=== PATIENT | female | born 2000 | race Caucasian/White ===

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

== ENCOUNTER 2023-01-30 08:12 | Emergency (ER) | payer MEDICAID, SELFPAY ==
[2023-01-30 08:13] VITALS: BP 118/78; PULSE 64; RESP 14; TEMP 36.4; O2SAT 98; BMI 25.4
--- NOTE | 2023-01-30 08:48 | EX.ED.DYSGE1 ---
HPI History of Present Illness Chief Complaint: General Illness Narrative Narrative: 23-year-old female who denies significant past medical history presents with nausea and vomiting after taking Plan B last evening. Of note, she states that she started her period last week and was on it for 2 days, but on , approximately 5 days ago, she took a Plan B which halted her menses. She had intercourse on Monday, the following day, and waited 48 hours and took another Plan B last evening. This morning, she awoke nauseated while she had been nauseated after taking it last evening. She vomited twice without any blood in her emesis. She denies any vaginal bleeding currently, no pelvic pain. She states that basically she is here because she needs a note for work today as well. She does not see an BREWERY TECHNICIAN regularly but wants to start control again. PFSH PFSH Medical History ADHD Anxiety Hemoperitoneum Home Medications lisdexamfetamine 10 mg capsule (Vyvanse) 10 mg adhd 09/09/20 [History Last Taken Unknown] etonogestrel 68 mg subdermal implant (Nexplanon) 1 implant subdermal ONCE 09/14/20 [History Last Taken Unknown] ondansetron 4 mg disintegrating tablet 4 mg PO Q6H PRN nausea and vomiting #10 tabs 01/30/23 [Rx Last Taken Unknown] Allergy/AdvReac Type Severity Reaction Status Date / Time No Known Allergies Allergy Verified 01/30/23 08:12 Family History Mother Hypertension Hyperlipidemia Surgical History History of ectopic Social History Smoking Status: Never smoker alcohol intake: never substance use type: does not use caffeine: No seatbelt use: always do you feel safe at home: Yes ROS ROS ED ROS Narrative Constitutional: No fever, no chills. HEENT: No sore throat. No neck pain. No loss of vision. No rhinorrhea. Cardiovascular: No chest pain. No palpitations. No pedal edema. Respiratory: No cough, no shortness of breath. Abdominal: No abdominal pain. Positive nausea, 2 episodes of nonbloody emesis. Genitourinary: No dysuria. No hematuria. No vaginal bleeding. Musculoskeletal: No myalgias. No arthralgias. Neurologic: No headaches. No dizziness. No lightheadedness. Skin: No rash. No change in color. Psychiatric: No depression. No anxiety. EXAM Physical Exam Narrative Exam Narrative: Afebrile. Vital signs noted. HEENT: Normocephalic. Atraumatic. PERRL, EOMI. Neck soft and supple. No point tenderness or step off. Cardiovascular: Regular rate and rhythm. No murmurs, rubs, or gallops appreciated. Respiratory: No tachypnea. Lungs clear to auscultation bilaterally. Gastrointestinal: Abdomen soft, nontender, with normoactive bowel sounds. No rebound or guarding. Neurological: Awake. Alert. Nonfocal, nonlateralizing. Skin: No rash. Normal color. No pallor. Musculoskeletal: No pedal edema. Full range of motion extremities. Const Vital Signs: 01/30/23 08:13 Temperature 97.6 F L Temperature Source Temporal Pulse Rate 64 Respiratory Rate 14 Blood Pressure 118/78 Blood Pressure Mean 91 Pulse Ox 98 Oxygen Delivery Method Room Air MDM MDM MDM Narrative Medical decision making narrative: I reviewed her prior ED visit. I do not feel any laboratory work is indicated. I do not feel test is indicated as she is not having vaginal bleeding or pelvic pain, and she most recently had intercourse on Monday. I do feel that her nausea and vomiting is secondary to her medication as this is essentially hormonal treatment. She was treated with Zofran ODT and a prescription written for 10 tablets. She was told that she may need to perform a test in the next 1 to 2 weeks to make sure that her Plan B was effective. She was also recommended to follow-up with an BREWERY TECHNICIAN. She was given the number to the [facility] on-call at her request. I feel she can be discharged safely home with follow-up. I do feel that it is too early to be concerned about ectopic currently as she is not having vaginal bleeding and she just had intercourse within the last week. Additionally, she states that she already took 2 home test which were both negative. She was told to return with a positive home , and follow-up with an BREWERY TECHNICIAN soon as possible. Return instructions to the emergency department were reviewed. Disposition is discharged home in stable condition. History & Record Review Additional record(s) reviewed:: Prior ED visit Discharge Plan Triage Chief Complaint: General Illness ED Provider: Arnoldo Harding Dx/Rx/DC Orders Clinical Impression: Medication side effect, Nausea and vomiting Instructions: ED Drug Reaction, Other, ED Vomiting (Adult) Prescriptions: New ondansetron 4 mg tablet,disintegrating 4 mg PO Q6H PRN (Reason: nausea and vomiting) Qty: 10 0RF No Action Nexplanon 68 mg implant 1 implant subdermal ONCE Rx Instructions: as a single dose Vyvanse 10 mg capsule 10 mg Patient Comments: Take 1 capsule by mouth once daily for 30 days. Stand Alone Forms: ED Work / School Excuse Primary Care Provider: Unique Rivas Referrals: Unique Rivas MD [Primary Care Provider] - Nereida Garcia MD [Med Staff - Active Staff] - As soon as possible Disposition Disposition: Home, Self Care
[2023-01-30] MEDS: Ondansetron ODT 4 MG Tablet PO (08:57)
== END 2023-01-30 09:19 | disposition home or self-care (01) ==
LOC: ED 09:12
PROVIDERS: Emergency Provider Emergency Medicine; PCP Pediatrics; Visit Provider Emergency Medicine
DX: R11.2 Nausea with vomiting, unspecified (principal); T38.4X5A Adverse effect of oral contraceptives, initial encounter
CPT/HCPCS: 99283

== ENCOUNTER → 2023-02-21 | Outpatient (CLI) | payer MEDICAID, SELFPAY | END | disposition home or self-care (01) | LOC: LABSPEC 15:59 | PROVIDERS: PCP Pediatrics; Referring Provider Advanced Practice Midwife; Visit Provider Advanced Practice Midwife | DX: Z30.9 Encounter for contraceptive management, unspecified (principal) ==

== ENCOUNTER → 2024-09-16 | Outpatient (CLI) | payer SELFPAY ==
[2024-09-19 06:07] LABS: Chlamydia By Nucleic Acid AMP Positive (Negative); Gonococcus By Nucleic Acid AMP Negative (Negative)
== END | disposition home or self-care (01) ==
LOC: LABSPEC 15:39
PROVIDERS: PCP Pediatrics; Referring Provider Obstetrics & Gynecology; Visit Provider Obstetrics & Gynecology
DX: O09.90 Supervision of high risk pregnancy, unspecified, unspecified trimester (principal); Z3A.00 Weeks of gestation of pregnancy not specified
CPT/HCPCS: 87086; 87088; 87491; 87591; 88175; G0145

== ENCOUNTER → 2024-10-02 | Outpatient (CLI) | payer MEDICAID, SELFPAY ==
[2024-10-02 15:59] LABS: Absolute Lymphocyte Count 1.89 X10^3/uL (0.83-4.51); Absolute Neutrophil Count 6.2 X10^3/uL (2.0-7.7); Basophil# 0.03 X10^3/uL; Basophil% 0.3 % (0-1); Eosinophil# 0.07 X10^3/uL; Eosinophils% 0.8 % (0-5); Hematocrit 38.5 % (37-47); Hemoglobin 12.9 g/dL (12.0-15.0); Lymphocyte # 1.89 X10^3/ul (0.83-4.51); Lymphocyte % 21.4 % (19-41); Mean Corp Hgb Conc 33.5 g/dL (32-36); Mean Corpuscular Hgb 29.3 pg (27.0-32.0); Mean Corpuscular Volume 87.5 fL (81-99); Monocyte# 0.65 X10^3/uL; Monocyte% 7.3 % (0-10); NRBC Flagged by Analyzer 0 % (0-5); Neutrophil # 6.19 X10^3/uL (2.7-7.7); Platelet Count 339 K/mm3 (150-450); RBC Distribution Width SD 48.4 fl (35.1-43.9); White Blood Count 8.9 K/mm3 (4.4-11.0)
[2024-10-02 16:40] LABS: HIV Nonreactive (Nonreactive); Hepatitis B Surface Antigen Nonreactive (Nonreactive); Hepatitis C Antibody Nonreactive (Nonreactive); Rubella IgG REAC (Nonreactive); Syphilis Antibodies Nonreactive (Nonreactive)
== END | disposition home or self-care (01) ==
PROVIDERS: PCP Pediatrics; Referring Provider Obstetrics & Gynecology; Visit Provider Obstetrics & Gynecology
DX: O09.90 Supervision of high risk pregnancy, unspecified, unspecified trimester (principal); Z3A.00 Weeks of gestation of pregnancy not specified
CPT/HCPCS: 36415; 85025; 86703; 86762; 86780; 86803; 86850; 86900; 86901; 87340

== ENCOUNTER 2024-11-02 09:07 | Emergency (ER) | payer SELFPAY ==
[2024-11-02 09:08] VITALS: BP 130/78; PULSE 107; RESP 18; TEMP 36.4; O2SAT 99; BMI 28.0
--- NOTE | 2024-11-02 10:02 | US_ITS ---
PROCEDURE: OB LIMITED WITH BIOMETRICS 11/02/2024 REASON FOR EXAM: VAGINAL BLEEDING. Early 2nd trimester TECHNIQUE: OB LIMITED WITH BIOMETRICS COMPARISON: None FINDINGS Number: 1 Position: Breech Placental Position: Anterior See exception following. Moderately echogenic rounded mass covers the cervix. This does not appear to be directly connected to placenta, but succenturiate placenta can not be excluded. Potentially this represents a variation of placenta previa Placental Abnormalities: Grade 0. No abnormalities. With the exception stated above. Cervical length: 3.3 cm. Closed cervical os. Adnexa unremarkable. DIMENSIONS: Biparietal Diameter: 3.04 cm/15 weeks, 4 days Head Circumference: 3.98 cm/15 weeks, 4 days Abdominal Circumference: 9.02 cm/15 weeks, 2 days Femur Length: 1.55 cm/14 weeks, 4 days ESTIMATED WEIGHT: 111 g +/-17 g ESTIMATED WEIGHT PERCENTILE (24+ weeks): 36% ESTIMATED GESTATIONAL AGE: Baseline: 15 weeks, 0 days By Ultrasound: 15 weeks, 3 days ESTIMATED DATE OF DELIVERY: Baseline: April 26, 2025 By Ultrasound: April 23, 2025 BIOPHYSICAL ASSESSMENT: Amniotic Fluid Volume: Amniotic Fluid Index: (8-24 cm normal range) Cardiac Motion: 166 (average) US/OB Limited With Biometrics IMPRESSION: rounded, 4 cm, potential lesion, covering the cervical os. A form of placenta p revia can not be excluded. If it is previa, could be succenturiate placental lobe, but precise etiology is unknown. Level of cer tainty in the above diagnosis is low. Maternal- medicine in [facility] consult may be considered Reading Location: [id number]
[2024-11-02] MEDS: 0.9% Normal Saline (1000mL) 1,000 ML 999 ML IV (10:17)
[2024-11-02 10:18] LABS: Absolute Lymphocyte Count 2.52 X10^3/uL (0.83-4.51); Absolute Neutrophil Count 5.1 X10^3/uL (2.0-7.7); Basophil# 0.05 X10^3/uL; Basophil% 0.6 % (0-1); Eosinophil# 0.12 X10^3/uL; Eosinophils% 1.4 % (0-5); Hematocrit 34.9 % (37-47); Hemoglobin 12.2 g/dL (12.0-15.0); Lymphocyte # 2.52 X10^3/ul (0.83-4.51); Lymphocyte % 29.1 % (19-41); Mean Corpuscular Hgb 30.4 pg (27.0-32.0); Mean Platelet Vol. 11.7 fl (6.2-12.0); Monocyte# 0.83 X10^3/uL; Monocyte% 9.6 % (0-10); NRBC Flagged by Analyzer 0 % (0-5); Neutrophil # 5.11 X10^3/uL (2.7-7.7); Neutrophil % 59.1 % (47-70); Platelet Count 278 K/mm3 (150-450); RBC Distribution Width CV 14.2 % (11.6-14.6); RBC Distribution Width SD 45.3 fl (35.1-43.9); Red Blood Count 4.01 M/mm3 (4.2-5.4); White Blood Count 8.7 K/mm3 (4.4-11.0)
--- OUTSIDE RECORDS SUMMARY | 2024-11-02 10:25 | XMS RPT_ITS | CCD ---
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 [facility] 09-01-2023 13:11-0400 Diastolic blood pressure 62 mm[Hg] Marisa William BENEFIT DIRECTOR.[employer] Work Phone: [facility] 09-01-2023 13:11-0400 Heart rate 60 /min Marisa William BENEFIT DIRECTOR.[employer] Work Phone: [facility] 09-01-2023 13:11-0400 Respiratory rate 12 /min Marisa William BENEFIT DIRECTOR.[employer] Work Phone: [facility] 09-01-2023 13:11-0400 Systolic blood pressure 110 mm[Hg] Marisa William BENEFIT DIRECTOR.[employer] Work Phone: [facility] 07-04-2023 15:35-0500 Body temperature 98.49 [degF] Naina Nichols BENEFIT DIRECTOR.[employer] Work Phone: [facility] 07-04-2023 15:35-0500 Body weight 63.05 kg Naina Nichols BENEFIT DIRECTOR.[employer] Work Phone: [facility] 07-04-2023 15:35-0500 Diastolic blood pressure 74 mm[Hg] Naina Nichols BENEFIT DIRECTOR.[employer] Work Phone: [facility] 07-04-2023 15:35-0500 Heart rate 92 /min Naina Nichols BENEFIT DIRECTOR.[employer] Work Phone: [facility] 07-04-2023 15:35-0500 Respiratory rate 16 /min Naina Nichols BENEFIT DIRECTOR.[employer] Work Phone: [facility] 07-04-2023 15:35-0500 SaO2% (BldA) [Mass fraction] 98 % Naina Nichols BENEFIT DIRECTOR.[employer] Work Phone: [facility] 07-04-2023 15:35-0500 Systolic blood pressure 124 mm[Hg] Naina Nichols BENEFIT DIRECTOR.[employer] Work Phone: [facility] 06-26-2023 16:08-0500 Body temperature 98.01 [degF] May Delaney BENEFIT DIRECTOR.[employer] Work Phone: [facility] 06-26-2023 16:08-0500 Body weight 63.96 kg May Delaney BENEFIT DIRECTOR.[employer] Work Phone: [facility] 06-26-2023 16:08-0500 Diastolic blood pressure 70 mm[Hg] May Delaney BENEFIT DIRECTOR.[employer] Work Phone: [facility] 06-26-2023 16:08-0500 Heart rate 102 /min May Delaney BENEFIT DIRECTOR.[employer] Work Phone: [facility] 06-26-2023 16:08-0500 Respiratory rate 18 /min May Delaney BENEFIT DIRECTOR.[employer] Work Phone: [facility] 06-26-2023 16:08-0500 SaO2% (BldA) [Mass fraction] 98 % May Delaney BENEFIT DIRECTOR.[employer] Work Phone: [facility] 06-26-2023 16:08-0500 Systolic blood pressure 122 mm[Hg] May Delaney BENEFIT DIRECTOR.[employer] Work Phone: [facility] 04-20-2023 12:42-0500 Body temperature 98.2 [degF] Kj Amaya MD Work Phone: [facility] 04-20-2023 12:42-0500 Body weight 62.14 kg Kj Amaya MD Work Phone: [facility] 04-20-2023 12:42-0500 Diastolic blood pressure 73 mm[Hg] Kj Amaya MD Work Phone: [facility] 04-20-2023 12:42-0500 Heart rate 83 /min Kj Amaya MD Work Phone: [facility] 04-20-2023 12:42-0500 Respiratory rate 18 /min Kj Amaya MD Work Phone: [facility] 04-20-2023 12:42-0500 SaO2% (BldA) [Mass fraction] 99 % Kj Amaya MD Work Phone: [facility] 04-20-2023 12:42-0500 Systolic blood pressure 137 mm[Hg] Kj Amaya MD Work Phone: [facility] 03-29-2023 07:12-0500 Body height 155.5 cm Marisa William BENEFIT DIRECTOR.[employer] Work Phone: [facility] 03-29-2023 07:12-0500 Body weight 61.78 kg Marisa William BENEFIT DIRECTOR.[employer] Work Phone: [facility] 03-29-2023 07:12-0500 Diastolic blood pressure 62 mm[Hg] Marisa William BENEFIT DIRECTOR.[employer] Work Phone: [facility] 03-29-2023 07:12-0500 Heart rate 69 /min Marisa William BENEFIT DIRECTOR.[employer] Work Phone: [facility] 03-29-2023 07:12-0500 Respiratory rate 12 /min Marisa William BENEFIT DIRECTOR.[employer] Work Phone: [facility] 03-29-2023 07:12-0500 SaO2% (BldA) [Mass fraction] 98 % Marisa William BENEFIT DIRECTOR.[employer] Work Phone: [facility] 03-29-2023 07:12-0500 Systolic blood pressure 98 mm[Hg] Marisa William BENEFIT DIRECTOR.[employer] Work Phone: [facility] 02-28-2023 12:02-0400 Body temperature 98.1 [degF] Janie Athy PA-C Work Phone: [facility] 02-28-2023 12:02-0400 Body weight 60.33 kg Janie Athy PA-C Work Phone: [facility] 02-28-2023 12:02-0400 Diastolic blood pressure 68 mm[Hg] Janie Athy PA-C Work Phone: [facility] 02-28-2023 12:02-0400 Heart rate 96 /min Janie Athy PA-C Work Phone: [facility] 02-28-2023 12:02-0400 Respiratory rate 16 /min Janie Athy PA-C Work Phone: [facility] 02-28-2023 12:02-0400 SaO2% (BldA) [Mass fraction] 97 % Janie Athy PA-C Work Phone: [facility] 02-28-2023 12:02-0400 Systolic blood pressure 122 mm[Hg] Janie Athy PA-C Work Phone: [facility] 02-21-2023 14:00-0400 Body height 152.[address] Unique Rivas Work Phone: [facility] 02-21-2023 13:59-0400 Body mass index (BMI) [Ratio] 26.2 kg/m2 Dr. Unique Rivas Work Phone: [facility] 02-21-2023 13:59-0400 Body weight 60.[address] Unique Rivas Work Phone: [facility] 02-13-2023 13:26-0400 Body mass index (BMI) [Ratio] 25.8 kg/m2 Dr. Unique Rivas Work Phone: [facility] 02-13-2023 13:26-0400 Body weight 60.[address] Unique Rivas Work Phone: [facility] 02-13-2023 13:26-0400 Diastolic blood pressure 84 mm[Hg] Dr. Unique Rivas Work Phone: [facility] 02-13-2023 13:26-0400 Systolic blood pressure 120 mm[Hg] Dr. Unique Rivas Work Phone: [facility] 01-30-2023 08:13-0400 Body height 152.4 cm [facility] 01-30-2023 08:13-0400 Body mass index (BMI) [Ratio] 25.4 kg/m2 [facility] 01-30-2023 08:13-0400 Body temperature 97.6 [degF] [facility] 01-30-2023 08:13-0400 Body weight 59.14 kg [facility] 01-30-2023 08:13-0400 Diastolic blood pressure 78 mm[Hg] [facility] 01-30-2023 08:13-0400 Heart rate 64 /min [facility] 01-30-2023 08:13-0400 Respiratory rate 14 /min [facility] 01-30-2023 08:13-0400 SaO2% (BldA) [Mass fraction] 98 % [facility] 01-30-2023 08:13-0400 Systolic blood pressure 118 mm[Hg] [facility] 01-24-2023 17:08-0400 Body temperature 97.81 [degF] Lizette Kinney BENEFIT DIRECTOR.[employer] Work Phone: [facility] 01-24-2023 17:08-0400 Body weight 60.15 kg Lizette Kinney BENEFIT DIRECTOR.[employer] Work Phone: [facility] 01-24-2023 17:08-0400 Diastolic blood pressure 78 mm[Hg] Lizette Kinney BENEFIT DIRECTOR.[employer] Work Phone: [facility] 01-24-2023 17:08-0400 Heart rate 79 /min Lizette Kinney BENEFIT DIRECTOR.[employer] Work Phone: [facility] 01-24-2023 17:08-0400 Respiratory rate 18 /min Lizette Kinney BENEFIT DIRECTOR.[employer] Work Phone: [facility] 01-24-2023 17:08-0400 SaO2% (BldA) [Mass fraction] 99 % Lizette Kinney BENEFIT DIRECTOR.[employer] Work Phone: [facility] 01-24-2023 17:08-0400 Systolic blood pressure 110 mm[Hg] Lizette Kinney BENEFIT DIRECTOR.[employer] Work Phone: [facility] 01-19-2023 14:29-0400 Body temperature 97.81 [degF] Kj Amaya MD Work Phone: [facility] 01-19-2023 14:29-0400 Body weight 58.97 kg Kj Amaya MD Work Phone: [facility] 01-19-2023 14:29-0400 Diastolic blood pressure 60 mm[Hg] Kj Amaya MD Work Phone: [facility] 01-19-2023 14:29-0400 Heart rate 104 /min Kj Amaya MD Work Phone: [facility] 01-19-2023 14:29-0400 Respiratory rate 16 /min Kj Amaya MD Work Phone: [facility] 01-19-2023 14:29-0400 SaO2% (BldA) [Mass fraction] 99 % Kj Amaya MD Work Phone: [facility] 01-19-2023 14:29-0400 Systolic blood pressure 124 mm[Hg] Kj Amaya MD Work Phone: [facility] 10-25-2022 14:02-0400 Body temperature 98.1 [degF] Janie AGUDELO-Isadora Work Phone: [facility] 10-25-2022 14:02-0400 Body weight 55.88 kg Janie AGUDELO-Isadora Work Phone: [facility] 10-25-2022 14:02-0400 Diastolic blood pressure 74 mm[Hg] Janie Peñalozay PA-C Work Phone: [facility] 10-25-2022 14:02-0400 Heart rate 82 /min Janie Athy PA-C Work Phone: [facility] 10-25-2022 14:02-0400 Respiratory rate 16 /min Janie Athy PA-C Work Phone: [facility] 10-25-2022 14:02-0400 SaO2% (BldA) [Mass fraction] 97 % Janie Athy PA-C Work Phone: [facility] 10-25-2022 14:02-0400 Systolic blood pressure 128 mm[Hg] Janie Athy PA-C Work Phone: [facility] 09-12-2022 15:17-0400 Body temperature 98.2 [degF] Lizette Kinney BENEFIT DIRECTOR.[employer] Work Phone: [facility] 09-12-2022 15:17-0400 Body weight 53.98 kg Lizette Kinney BENEFIT DIRECTOR.[employer] Work Phone: [facility] 09-12-2022 15:17-0400 Diastolic blood pressure 60 mm[Hg] Lizette Kinney BENEFIT DIRECTOR.[employer] Work Phone: [facility] 09-12-2022 15:17-0400 Heart rate 102 /min Lizette Kinney BENEFIT DIRECTOR.[employer] Work Phone: [facility] 09-12-2022 15:17-0400 Respiratory rate 16 /min Lizette Kinney BENEFIT DIRECTOR.[employer] Work Phone: [facility] 09-12-2022 15:17-0400 SaO2% (BldA) [Mass fraction] 99 % Lizette Kinney BENEFIT DIRECTOR.[employer] Work Phone: [facility] 09-12-2022 15:17-0400 Systolic blood pressure 102 mm[Hg] Lizette Kinney BENEFIT DIRECTOR.[employer] Work Phone: [facility] 06-30-2022 14:05-0500 Body temperature 98.1 [degF] Debbi Praisler-Wood BENEFIT DIRECTOR.[employer] Work Phone: [facility] 06-30-2022 14:05-0500 Body weight 53.43 kg Debbi Praisler-Wood BENEFIT DIRECTOR.[employer] Work Phone: [facility] 06-30-2022 14:05-0500 Diastolic blood pressure 64 mm[Hg] Debbi Praisler-Wood BENEFIT DIRECTOR.[employer] Work Phone: [facility] 06-30-2022 14:05-0500 Heart rate 93 /min Debbi Praisler-Wood BENEFIT DIRECTOR.[employer] Work Phone: [facility] 06-30-2022 14:05-0500 Respiratory rate 18 /min Debbi Praisler-Wood BENEFIT DIRECTOR.[employer] Work Phone: [facility] 06-30-2022 14:05-0500 SaO2% (BldA) [Mass fraction] 98 % Debbi Praisler-Wood BENEFIT DIRECTOR.[employer] Work Phone: [facility] 06-30-2022 14:05-0500 Systolic blood pressure 98 mm[Hg] Debbi Praisler-Wood BENEFIT DIRECTOR.[employer] Work Phone: [facility] 11-04-2021 09:50-0400 Body mass index (BMI) [Percentile] Per age and sex 35.88 % Unique Rivas MD Work Phone: [facility] 11-04-2021 09:50-0400 Body temperature 97.5 [degF] Unique Rivas MD Work Phone: [facility] 11-04-2021 09:50-0400 Body weight 48.22 kg Unique Rivas MD Work Phone: [facility] 11-04-2021 09:50-0400 Diastolic blood pressure 60 mm[Hg] Unique Rivas MD Work Phone: [facility] 11-04-2021 09:50-0400 Heart rate 80 /min Unique Rivas MD Work Phone: [facility] 11-04-2021 09:50-0400 Respiratory rate 18 /min Unique Rivas MD Work Phone: [facility] 11-04-2021 09:50-0400 Systolic blood pressure 110 mm[Hg] Unique Rivas MD Work Phone: [facility] 08-09-2021 10:02-0400 Body mass index (BMI) [Percentile] Per age and sex 40.69 % Kj Amaya MD Work Phone: [facility] 08-09-2021 10:02-0400 Body temperature 98.91 [degF] Kj Amaya MD Work Phone: [facility] 08-09-2021 10:02-0400 Body weight 48.99 kg Kj Amaya MD Work Phone: [facility] 08-09-2021 10:02-0400 Diastolic blood pressure 62 mm[Hg] Kj Amaya MD Work Phone: [facility] 08-09-2021 10:02-0400 Heart rate 108 /min Kj Amaya MD Work Phone: [facility] 08-09-2021 10:02-0400 Respiratory rate 16 /min Kj Amaya MD Work Phone: [facility] 08-09-2021 10:02-0400 SaO2% (BldA) [Mass fraction] 99 % jK Amaya MD Work Phone: [facility] 08-09-2021 10:02-0400 Systolic blood pressure 106 mm[Hg] Kj Amaya MD Work Phone: [facility] Encounters Encounter Date Encounter Type Care Provider Facility Start: 10-15-2024 End: 10-15-2024 Patient encounter procedure Chanel CABRERA -[facility] Work Phone: Start: 10-15-2024 End: 10-15-[address] Unique Rivas MD Work Phone: [facility] Work Phone: Start: 10-02-2024 End: 10-02-[address] Unique Rivas MD Work Phone: [facility] Work Phone: Start: 10-02-2024 End: 10-02-[address] Nereida Garcia MD -[facility] Start: 10-02-2024 End: 10-02-2024 ambulatory Nereida Garcia Facility:[facility] Start: 09-16-2024 End: 09-16-[address] Unique Rivas MD Work Phone: [facility] Work Phone: Start: 09-16-2024 End: 09-16-[address] Nereida Garcia MD -[facility] Work Phone: Start: 09-16-2024 End: 09-16-[address] Sarah Ravi DO -[facility] Work Phone: Start: 09-16-2024 End: 09-16-2024 ambulatory Unique Rivas Facility:[facility] Start: 09-16-2024 End: 09-16-2024 ambulatory Nereida Garcia Facility:[facility] Start: 08-27-2024 End: 08-27-[address] Nereida Garcia MD -[facility] Work Phone: Start: 08-27-2024 End: 08-27-2024 ambulatory Nereida Garcia Facility:[facility] Start: 07-30-2024 End: 07-30-2024 Telephone encounter Marisa William APRN.[employer] Work Phone: [facility] Comment on above: Orders Start: 07-07-2024 End: 09-06-2024 Follow-up encounter Naina Nichols APRN.[employer] Work Phone: [facility] Start: 07-06-2024 End: 07-06-2024 ambulatory MARISA ANGEL WILLIAM Facility:[facility] Start: 07-06-2024 End: 07-06-2024 Patient encounter procedure Janelle Weldon APRN.[employer] Work Phone: [facility] Comment on above: Rhinosinusitis (Prim maru Dx) Start: 07-02-2024 End: 07-02-2024 ambulatory MARISA ANGEL WILLIAM Facility:[facility] Start: 07-02-2024 End: 07-02-2024 Office outpatient visit 25 minutes Carlos Salazar PA-C Work Phone: [facility] Comment on above: Sore throat (Primary Dx); Acute pharyngitis, unspecified etiology Start: 06-19-2024 End: 08-19-2024 Follow-up encounter Stef AGUDELO Work Phone: [facility] Start: 06-18-2024 End: 06-18-2024 ambulatory MARISA ANGEL WILLIAM Facility:[facility] Start: 06-18-2024 End: 06-18-2024 Patient encounter procedure Debbi Arceo APRN.[employer] Work Phone: [facility] Comment on above: Flu-like symptoms (P rimary Dx) Start: 05-10-2024 End: 05-10-2024 ambulatory MARISA WILLIAM Facility:[facility] Start: 05-10-2024 Encounter for genera l adult medical examination without abnormal findings MARISA WILLIAM [facility] Start: 05-10-2024 End: 05-10-2024 Patient encounter procedure Marisa William BENEFIT DIRECTOR.[employer] Work Phone: [facility] [place] Comment on above: Wellness examination (Primary Dx); Family history of hypothyroidism; Right leg pain Start: 05-10-2024 End: 05-10-2024 Patient encounter status Marisa William BENEFIT DIRECTOR.[employer] Work Phone: [facility] Work Phone: Start: 04-23-2024 End: 04-23-2024 ambulatory Unique Rivas Facility:[facility] Start: 02-05-2024 End: 02-05-2024 ambulatory MARISA WILLIAM Facility:[facility] Start: 02-05-2024 End: 02-05-2024 Patient encounter procedure Naina Nichols APRN.[employer] Work Phone: [facility] Comment on above: URI, acute (Primary Dx) Start: 11-28-2023 End: 11-28-2023 ambulatory MARISAMARILIA ORTIZ POCOLA Facility:[facility] Start: 11-28-2023 End: 11-28-2023 Patient encounter procedure Stef AGUDELO Work Phone: [facility] Comment on above: Headache, unspecifie d headache type (Primary Dx) Start: 11-03-2023 End: 11-03-2023 ambulatory MARISAMARILIA WILLIAM Facility:[facility] Start: 11-03-2023 End: 11-03-2023 Office outpatient visit 15 minutes Beltran Carreon APRN.[employer] Work Phone: [facility] Comment on above: Pain of right lower extremity (Primary Dx) Start: 09-01-2023 End: 09-01-2023 ambulatory MARISAMARILIA ORTIZ WILLIAM Facility:[facility] Start: 09-01-2023 End: 09-01-2023 Patient encounter procedure Marisa Stewart ALDRIDGE.[employer] Work Phone: [facility] [place] Comment on above: Wellness examination (Primary Dx) Start: 09-01-2023 End: 09-01-2023 Patient encounter status Marisa Stewart ALDRIDGE.[employer] Work Phone: [facility] Work Phone: Start: 07-04-2023 End: 07-04-2023 Patient encounter procedure Naina Nichols APRN.[employer] Work Phone: [facility] Comment on above: Acute otitis media, left (Primary Dx); Sore throat Start: 06-26-2023 End: 06-26-2023 Patient encounter procedure May Delaney APRN.[employer] Work Phone: [facility] Comment on above: Exposure to SARS-ass ociated coronavirus (Primary Dx) Start: 04-20-2023 End: 04-20-2023 Patient encounter procedure Kj Amaya MD Work Phone: [facility] Comment on above: Acute hip pain, righ t (Primary Dx) Start: 03-29-2023 End: 03-29-2023 Patient encounter procedure Marisa William BENEFIT DIRECTOR.[employer] Work Phone: [facility] [place] Comment on above: Wellness examination (Primary Dx) Start: 03-29-2023 End: 03-29-2023 Patient encounter status Marisa William BENEFIT DIRECTOR.[employer] Work Phone: [facility] Work Phone: Start: 02-28-2023 End: 02-28-2023 Patient encounter procedure Janie Holder PA-C Work Phone: [facility] Comment on above: Nausea (Primary Dx) Start: 02-21-2023 End: 02-21-[address] Unique Rivas Work Phone: [facility] Work Phone: Start: 02-21-2023 End: 02-21-[address] Unique Rivas Work Phone: [facility]Laboratory, Specimen Work Phone: Start: 02-21-2023 End: 02-21-[address] Unique Rivas Work Phone: [facility] Work Phone: Start: 02-13-2023 End: 02-13-[address] Unique Rivas Work Phone: [facility] Work Phone: Start: 01-30-2023 End: 01-30-2023 Emergency department patient visit [facility] Work Phone: Start: 01-24-2023 End: 01-24-2023 Patient encounter procedure Lizette Kinney BENEFIT DIRECTOR.[employer] Work Phone: [facility] Comment on above: Nausea vomiting and diarrhea (Primary Dx) Start: 01-19-2023 End: 01-19-2023 Patient encounter procedure Kj Amaya MD Work Phone: [facility] Comment on above: Costochondritis (Ale olamide Dx) Start: 10-25-2022 End: 10-25-2022 Patient encounter procedure Janie Holder PA-C Work Phone: [facility] Comment on above: Fluid level behind t ympanic membrane of right ear (Primary Dx); Headache, unspecified headache type Start: 09-12-2022 End: 09-12-2022 Patient encounter procedure Lizette Kinney BENEFIT DIRECTOR.[employer] Work Phone: [facility] Comment on above: URI, acute (Primary Dx); Pharyngitis, unspecified etiology Start: 06-30-2022 End: 06-30-2022 Patient encounter procedure Debbi Arceo BENEFIT DIRECTOR.[employer] Work Phone: [facility] Comment on above: Encounter for screen ing laboratory testing for COVID-19 virus (Primary Dx) Start: 06-30-2022 Telephone encounter May harris MD Work Phone: [facility] Comment on above: [facility] COVID Outr each Start: 02-23-2022 Refill Unique Liu ed, MD Work Phone: [facility] [place] Comment on above: Refill Request Start: 01-25-2022 Refill Unique Liu ed, MD Work Phone: [facility] Comment on above: Refill Request Start: 01-24-2022 End: 01-24-2022 Patient encounter procedure Nurse Rosales [facility] Comment on above: Encounter for immuni zation (Primary Dx) Refill Request Start: 01-22-2022 Refill Unique Liu ed, MD Work Phone: [facility] Comment on above: Refill Request Start: 01-21-2022 End: 01-21-2022 Patient encounter procedure Nurse Rosales [facility] Comment on above: Encounter for PPD sk in test reading (Primary Dx) Start: 01-06-2022 End: 01-06-2022 Patient encounter procedure Nurse Rosales Watson [facility] [place] Comment on above: Encounter for PPD sk in test reading (Primary Dx); Screening-pulmonary TB Start: 12-27-2021 End: 12-27-2021 Patient encounter procedure Unique Rivas MD Work Phone: [facility] Comment on above: Encounter for immuni zation (Primary Dx) Start: 12-23-2021 Refill Tessa Martinez PA-C Work Phone: [facility] Comment on above: Refill Request Start: 12-01-2021 Telephone encounter Angie Maya RN [facility] Comment on above: [facility] COVID Outr each Start: 11-04-2021 End: 11-04-2021 Patient encounter procedure Unique Rivas MD Work Phone: [facility] [place] Comment on above: Attention deficit hy peractivity disorder (ADHD), predominantly inattentive type (Primary Dx); Anxiety Start: 10-22-2021 Refill Unique Liu ed, MD Work Phone: [facility] Comment on above: Refill Request Start: 09-20-2021 Refill Unique Liu ed, MD Work Phone: [facility] [place] Comment on above: Refill Request Start: 09-18-2021 Refill Unique Liu ed, MD Work Phone: [facility] Comment on above: Refill Request Start: 08-09-2021 End: 08-09-2021 Patient encounter procedure Kj Amaya MD Work Phone: [facility] Comment on above: Toothache (Primary D x) Procedures Date Procedure Procedure Detail Performing Clinician Start: 10-02-[address] Lluvia Rivas MD Work Phone: Start: 10-02-[address] antibody measurement Dr. Unique Rivas MD Work Phone: Comment on above: Reactive: Presumptiv e evidence of antibodies to HCV. Follow CDC recommendations for supplemental testing.Non-Reactive: Antibodies to HCV were not detected; does not exclude the possibility of exposure to HCVReactive Results are presumptive evidence of antibodies to HCV. Follow CDC recommendations for supplemental testing.Order confirmation testing: HCV Quant by PCR testing - HCVPCR #[id number] Non Reactive: < 0.8 Equivocal: >/= 0.8 to < 1.0 Reactive: >/= 1.0The CDC requires that a reactive/equivocal HCV antibody result be sent out for confirmation. HCV Quant by PCR testing. Start: 10-02-[address] Unique Rivas MD Work Phone: Comment on above: Antibody Result: Int erpretationNon-Reactive: Non- ImmuneReactive: ImmuneThe following results were obtained with the [employer] Rubella IgG assay. Results from assays of other manufacturers cannot be used interchangeably. Start: 10-02-2024 Serologic test for syphilis Dr. Unique Rivas MD Work Phone: Start: 09-16-2024 Liquid based cervica l cytology screening Dr. Unique Rivas MD Work Phone: Comment on above: NEGATIVE FOR INTRAEP ITHELIAL LESION OR MALIGNANCY. This liquid based Th inPrep(R) pap test was screened withthe use of an image guided system. The HPV DNA reflex c riteria were not met with this specimenresult therefore, no HPV testing was performed.Performed at: [address] [id number] Director: Birdie Tobin MD, Phone: [phone] Start: 09-16-[address] Elma Rivas MD Work Phone: Start: 07-02-2024 STREP A MOLECULAR (POC) Lizette Kinney BENEFIT DIRECTOR.[employer] Work Phone: Start: 07-04-2023 STREP A MOLECULAR (POC) [facility] Provider Start: 02-21-[address] Unique Rivas Work Phone: Start: 02-21-2023 Chlamydia trachomatis (PCR) Dr. Unique Rivas Work Phone: Start: 09-12-2022 STREP A MOLECULAR (POC) Lizette Kinney BENEFIT DIRECTOR.[employer] Work Phone: Start: 01-24-2022 INFLUENZA VACCINE QUADRIVALENT 6 MO - 64 YRS IM Unique Rivas MD Work Phone: Start: 12-27-2021 Adult depression scr eening assessment Unique Rivas MD Work Phone: Start: 11-04-2021 Adult depression scr eening assessment Unique Rivas MD Work Phone: Start: 07-09-2021 Adult depression scr eening assessment Kj Amaya MD Work Phone: Plan of Treatment Date Care Activity Detail Author Start: 05-10-2025 Covid-19 Vaccine ( season) Covid-19 Vaccine ( season) [facility] Comment on above: Postponed from 01/06 (Declined at this time) Start: 11-04-2024 Influenza vaccination Influenza Vacc ine (#1) [facility] Comment on above: Postponed from 01/06 (Declined at this time) Start: 09-16-2024 Liquid based cervica l cytology screening [facility] Start: 07-02-2024 End: 07-02-2024 ambulatory 07/02/2024 12:00 PM EST OT/PT/Speech Visit [facility] [address] [place] [address] Lizette Andrews, PT My right leg [facility] Comment on above: My right leg Start: 05-10-2024 End: 08-09-2024 CBC W Auto Differential panel - Blood COMPLETE BLOOD COUNT AND DIFFERENTIAL Lab Routine Wellness examination Expected: 05/10/2024, Expires: 08/09/2024 [facility] Comment on above: Expected: 05/10/2024 , Expires: 08/09/2024 Start: 05-10-2024 End: 08-09-2024 Comprehensive metabolic 2000 panel - Serum or Plasma COMPREHENSIVE METABOLIC PANEL Lab Routine Wellness examination Expected: 05/10/2024, Expires: 08/09/2024 [facility] Work Phone: Comment on above: Expected: 05/10/2024 , Expires: 08/09/2024 Start: 05-10-2024 End: 08-09-2024 Hemoglobin A1c in Blood HEMOGLOBIN A1C Lab Routine Wellness examination Expected: 05/10/2024, Expires: 08/09/2024 [facility] Comment on above: Expected: 05/10/2024 , Expires: 08/09/2024 Start: 05-10-2024 End: 08-09-2024 Lipid 1996 panel - Serum or Plasma LIPID PANEL BASIC Lab Routine Wellness examination Expected: 05/10/2024, Expires: 08/09/2024 [facility] Comment on above: Expected: 05/10/2024 , Expires: 08/09/2024 Start: 05-10-2024 End: 08-09-2024 Thyrotropin [Units/volume] in Serum or Plasma THYROID STIMULATING HORMONE Lab Routine Wellness examination Family history of hypothyroidism Expected: 05/10/2024, Expires: 08/09/2024 [facility] Comment on above: Expected: 05/10/2024 , Expires: 08/09/2024 Start: 04-22-2024 Urine microalbumin profile [facility] Start: 03-29-2024 Covid-19 Vaccine (#1) Covid-19 Vacci ne (#1) [facility] Comment on above: Postponed from 07/11 (Declined at this time) Start: 03-29-2024 Covid-19 Vaccine ( season) Covid-19 Vaccine () [facility] Comment on above: Postponed from 01/06 (Declined at this time) Start: 01-07-2024 Covid-19 Vaccine ( season) Covid-19 Vaccine () [facility] Start: 01-07-2024 Influenza vaccination C [facility] Start: 11-16-2023 End: 11-16-2023 Patient encounter procedure 11/16/2023 8:00 AM EDT Office Visit [facility] [address] [facility] [place] [address] Marisa William, BENEFIT DIRECTOR.[employer] [address] [place] [address] Follow up from Urgent Care - Thigh pain [facility] Comment on above: Follow up from Urgen t Care - Thigh pain Start: 11-05-2023 Influenza vaccination Influenza Vacc ine (#1) [facility] Comment on above: Postponed from 01/06 (Declined at this time) Start: 05-08-2023 Behavioral Health Screening Behavioral Health Screening [facility] Start: 05-08-2023 Depression Assessment Depression Ass essment [facility] Start: 03-29-2023 End: 06-28-2023 CBC W Auto Differential panel - Blood CBC + DIFF Lab Routine Wellness examination Expected: 03/29/2023, Expires: 06/28/2023 [facility] Work Phone: Comment on above: Expected: 03/29/2023 , Expires: 06/28/2023 Start: 03-29-2023 End: 06-28-2023 Comprehensive metabolic 2000 panel - Serum or Plasma COMP METABOLIC PANEL Lab Routine Wellness examination Expected: 03/29/2023, Expires: 06/28/2023 [facility] Work Phone: Comment on above: Expected: 03/29/2023 , Expires: 06/28/2023 Start: 03-29-2023 End: 06-28-2023 Lipid 1996 panel - Serum or Plasma LIPID PANEL BASIC Lab Routine Wellness examination Expected: 03/29/2023, Expires: 06/28/2023 [facility] Work Phone: Comment on above: Expected: 03/29/2023 , Expires: 06/28/2023 Start: 2023 Pap Testing Pap Testing [facility] Start: 2023 Screening for malign ant neoplasm of cervix [facility] Start: 01-06-2023 Influenza vaccination Influenza Vacc ine (#1) [facility] Start: 12-27-2022 Adult depression screening assessment DEPRESSION SCREENING [facility] Start: 11-04-2022 Adult depression screening assessment DEPRESSION SCREENING [facility] Start: 09-12-2022 End: 09-26-2022 Influenza virus A and B RNA and SARS-CoV-2 (COVID-19) N gene panel - Respiratory specimen by VISHNU with probe detection [facility] Work Phone: Comment on above: Expected: 09/12/2022 , Expires: 09/26/2022 Start: 07-09-2022 Adult depression screening assessment DEPRESSION SCREENING [facility] Start: 05-08-2022 DEPRESSION ASSESSMENT DEPRESSION ASS ESSMENT [facility] Start: 01-06-2022 Influenza vaccination INFLUENZA (#1) [facility] Start: 12-01-2021 End: 12-15-2021 Influenza virus A and B RNA and SARS-CoV-2 (COVID-19) N gene panel - Respiratory specimen by VISHNU with probe detection CAREGIVER COVID + FLU A/B, ROUTINE Microbiology Routine Suspected 2019 novel coronavirus infection Expected: 12/01/2021, Expires: 12/15/2021 [facility] Work Phone: Comment on above: Expected: 12/01/2021 , Expires: 12/15/2021 Start: 05-08-2021 DEPRESSION ASSESSMENT DEPRESSION ASS ESSMENT [facility] Start: 01-12-2020 CHLAMYDIA SCREENING (18-24) CHLAMYDIA SCREENING (18-24) [facility] Start: 01-12-2020 Depression Screening Depression Scre ening [facility] Start: 01-12-2020 GC (GONORRHEA) SCREENING (18-24) GC (GONORRHEA) SCREENING (18-24) [facility] Start: 01-12-2020 HEPATITIS C SCREENING HEPATITIS C [facility] Start: 01-12-2020 HIV SCREENING HIV SCREENING [facility] Start: 01-12-2020 Screening for Chlamy dwayne trachomatis Chlamydia Screening (18-24) [facility] Start: 2018 Meningococcal B Vacc ine (1 of 2 - Standard) Meningococcal B Vaccine (1 of 2 - Standard) [facility] Start: 2018 Meningococcal B Vaccine: Consider Based On Risk (1 of 2 - Patient Seeks Protection) Meningococcal B Vaccine: Consider Based On Risk (1 of 2 - Patient Seeks Protection) [facility] Start: 01-12-2016 PEDS TO ADULT TRANSITION ANNUAL ASSESSMENT PEDS TO ADULT TRANSITION ANNUAL ASSESSMENT [facility] Start: 01-12-2012 MENINGOCOCCAL B: Consider based on risk (1 of 2 - Risk Bexsero 2-dose series) MENINGOCOCCAL B: Consider based on risk (1 of 2 - Risk Bexsero 2-dose series) [facility] Start: 2007 COVID-19 VACCINE (#1) COVID-19 VACCI NE (#1) [facility] Start: 2007 COVID-19 VACCINE (1) COVID-19 VACCIN E (1) [facility] Start: 2002 COVID-19 VACCINE (#1) COVID-19 VACCI NE (#1) [facility] CBC W Auto Different ial panel - Blood [facility] COVID & INFLUENZA A/ B & RSV NAAT, ROUTINE COVID & INFLUENZA A/B & RSV NAAT, ROUTINE Microbiology Routine Exposure to SARS-associated coronavirus 06/26/2023 4:20 PM EST [facility] Work Phone: COVID & INFLUENZA A/ B & RSV PCR, ROUTINE COVID & INFLUENZA A/B & RSV PCR, ROUTINE Microbiology Routine URI, acute 02/05/2024 11:27 AM EDT [facility] Work Phone: COVID & INFLUENZA A/ B & RSV PCR, ROUTINE COVID & INFLUENZA A/B & RSV PCR, ROUTINE Microbiology Routine Flu-like symptoms 06/18/2024 11:59 AM EST [facility] Work Phone: COVID & INFLUENZA A/ B & RSV PCR, ROUTINE COVID & INFLUENZA A/B & RSV PCR, ROUTINE Microbiology Routine Rhinosinusitis Ordered: 07/06/2024 [facility] Work Phone: Comment on above: Ordered: 07/06/2024 Hepatitis C antibody measurement [facility] Influenza virus A an d B RNA and SARS-CoV-2 (COVID-19) N gene panel - Respiratory specimen by VISHNU with probe detection [employer]G[facility] COVID + FLU A/B, ROUTINE Microbiology Routine Encounter for screening laboratory testing for COVID-19 virus 06/30/2022 3:27 PM EST [facility] Work Phone: Influenza virus A an d B RNA and SARS-CoV-2 (COVID-19) N gene panel - Respiratory specimen by VISHNU with probe detection COVID & INFLUENZA A/B NAAT, ROUTINE Microbiology Routine Nausea 02/28/2023 12:49 PM EDT [facility] Work Phone: Patient Education ED Drug Reacti on, Other ED Vomiting (Adult) [facility] Work Phone: Patient referral [facility] Work Phone: PPD (TB INTRADERMAL 79247) B/O PPD (TB INTRADERMAL 18018) B/O Procedures Routine Screening-pulmonary TB Ordered: 07/30/2024 [facility] Work Phone: Comment on above: Ordered: 07/30/2024 Rubella IgG measurement [facility] Serologic test for syphilis [facility] Immunizations Immunization Date Immunization Notes Care Provider Tate valencia 01-24-2022 influenza, injectabl e, quadrivalent, contains preservative Nurse [facility] Work Phone: 01-24-2022 influenza virus vacc ine, unspecified formulation Kj Amaya MD Work Phone: [facility] 01-18-2022 tuberculin skin test ; purified protein derivative solution, intradermal Naina Nichols BENEFIT DIRECTOR.[employer] Work Phone: [facility] 01-03-2022 tuberculin skin test ; purified protein derivative solution, intradermal Naina Aldair BENEFIT DIRECTOR.[employer] Work Phone: [facility] 12-27-2021 hepatitis B vaccine, pediatric or pediatric/adolescent dosage Unique Rivas MD Work Phone: [facility] 11-10-2021 varicella virus vaccine Johny Martinez PA-C Work Phone: [facility] 01-26-2021 influenza, injectabl e, quadrivalent, contains preservative Kj Amaya MD Work Phone: [facility] 03-15-2018 influenza, injectabl e, quadrivalent, contains preservative Kj Amaya MD Work Phone: [facility] 03-15-2018 meningococcal polysaccharide (groups A, C, Y and W-135) diphtheria toxoid conjugate vaccine (MCV4P) Kj Amaya MD Work Phone: [facility] 06-12-2017 influenza, injectabl e, quadrivalent, contains preservative Kj Amaya MD Work Phone: [facility] 04-14-2016 Human Papillomavirus 9-valent vaccine Kj Amaya MD Work Phone: [facility] 04-14-2016 influenza, injectabl e, quadrivalent, contains preservative Kj Amaya MD Work Phone: [facility] 04-09-2015 human papilloma viru s vaccine, quadrivalent Kj Amaya MD Work Phone: [facility] 04-09-2015 influenza, injectabl e, quadrivalent, contains preservative Kj Amaya MD Work Phone: [facility] 04-22-2014 human papilloma viru s vaccine, quadrivalent Kj Amaya MD Work Phone: [facility] 04-22-2014 influenza, live, intranasal, quadrivalent Kj Amaya MD Work Phone: [facility] 04-22-2014 meningococcal polysaccharide (groups A, C, Y and W-135) diphtheria toxoid conjugate vaccine (MCV4P) Kj Amaya MD Work Phone: [facility] 04-22-2014 tetanus toxoid, redu sofia diphtheria toxoid, and acellular pertussis vaccine, adsorbed Kj Amaya MD Work Phone: [facility] 02-25-2011 influenza virus vacc ine, live, attenuated, for intranasal use Kj Amaya MD Work Phone: [facility] 02-16-2010 influenza virus vacc ine, live, attenuated, for intranasal use Kj Amaya MD Work Phone: [facility] Work Phone: 05-29-2007 diphtheria, tetanus toxoids and acellular pertussis vaccine jK Amaya MD Work Phone: [facility] Work Phone: 05-29-2007 measles, mumps and rubella virus vaccine Kj Amaya MD Work Phone: [facility] Work Phone: 05-29-2007 poliovirus vaccine, inactivated Kj Amaya MD Work Phone: [facility] Work Phone: 05-29-2007 varicella virus vaccine Doug Amaya MD Work Phone: [facility] Work Phone: 11-24-2005 pneumococcal conjuga te vaccine, 7 valent Kj Amaya MD Work Phone: [facility] Work Phone: 08-18-2004 pneumococcal conjuga te vaccine, 7 valent Kj Amaya MD Work Phone: [facility] Work Phone: 08-21-2003 diphtheria, tetanus toxoids and acellular pertussis vaccine Kj Amaya MD Work Phone: [facility] Work Phone: 08-21-2003 haemophilus influenz ae type b vaccine, HbOC conjugate Kj Amaya MD Work Phone: [facility] Work Phone: 01-15-2003 measles, mumps and rubella virus vaccine Kj Amaya MD Work Phone: [facility] Work Phone: 01-15-2003 varicella virus vaccine Doug Amaya MD Work Phone: [facility] Work Phone: 2002 hepatitis B vaccine, pediatric or pediatric/adolescent dosage Kj Amaya MD Work Phone: [facility] Work Phone: 2002 diphtheria, tetanus toxoids and acellular pertussis vaccine Kj Amaya MD Work Phone: [facility] Work Phone: 2002 haemophilus influenz ae type b vaccine, HbOC conjugate Kj Amaya MD Work Phone: [facility] Work Phone: 2002 poliovirus vaccine, inactivated Kj Amaya MD Work Phone: [facility] Work Phone: 2002 diphtheria, tetanus toxoids and acellular pertussis vaccine Kj Amaya MD Work Phone: [facility] Work Phone: 2002 haemophilus influenz ae type b vaccine, HbOC conjugate Kj Amaya MD Work Phone: [facility] Work Phone: 2002 pneumococcal conjuga te vaccine, 7 valent Kj Amaya MD Work Phone: [facility] Work Phone: 2002 poliovirus vaccine, inactivated Kj Amaya MD Work Phone: [facility] Work Phone: 2002 diphtheria, tetanus toxoids and acellular pertussis vaccine Kj Amaya MD Work Phone: [facility] Work Phone: 2002 haemophilus influenz ae type b vaccine, HbOC conjugate Kj Amaya MD Work Phone: [facility] Work Phone: 2002 pneumococcal conjuga te vaccine, 7 valent Kj Amaya MD Work Phone: [facility] Work Phone: 2002 poliovirus vaccine, inactivated Kj Amaya MD Work Phone: [facility] Work Phone: 2002 hepatitis B vaccine, pediatric or pediatric/adolescent dosage Kj Amaya MD Work Phone: [facility] Work Phone: 2002 hepatitis B vaccine, pediatric or pediatric/adolescent dosage Kj Amaya MD Work Phone: [facility] Work Phone: Payers Date Payer Category Payer Self-pay [id number] 2022 Medicaid [id number] 2017 Medicaid [employer] [id number] 2017-Present [phone] [address] [place] [address] Medicaid [id number] 2017 Medicaid [id number] Unknown [id number] Unknown [id number] Unknown [id number] Unknown [id number] Unknown [id number] Unknown [id number] Unknown [id number] Social History Date Type Detail Facility Start: 02-25-2011 End: 06-30-2022 Tobacco smoking status NHIS Never smoked tobacco [facility] Work Phone: Start: 08-09-2021 End: 07-06-2024 Alcohol intake Current non-drinker of alcohol (finding) [facility] Start: 11-02-2010 End: 06-30-2022 Tobacco Comment Both parents inside and outside [facility] Start: 2002 Sex Assigned At Not on file C [facility] Start: 07-30-2021 End: 12-30-2021 Exposure to SARS-CoV-2 (event) Not sure [facility] Work Phone: Start: 11-04-2021 History SDOH Alcohol Frequency 1 [facility] Start: 11-04-2021 History SDOH Alcohol Std Drinks 98 [facility] Start: 11-04-2021 History SDOH Social Connections Phone 5 [facility] Start: 11-04-2021 History SDOH Social Connections Get Together 3 [facility] Start: 11-04-2021 History SDOH Social Connections Membership 2 [facility] Start: 11-04-2021 History SDOH Social Connections Living 8 [facility] Start: 11-04-2021 History SDOH Physica l Activity MPS 0 [facility] Start: 11-04-2021 History SDOH Financial 4 [facility] History of tobacco use Passive smoker [facility] Start: 02-25-2011 End: 06-30-2022 Tobacco use and exposure Smokeless tobacco non-user [facility] Start: 11-04-2021 End: 11-16-2023 History of Social function [facility] Start: 11-04-2021 End: 11-16-2023 Social connection and isolation panel [facility] Do you belong to any clubs or organizations such as religious groups, unions, fraternal or athletic groups, or school groups? No [facility] Are you now , , , , never or living with a partner? Living with partner [facility] How often to you hav e a drink containing alcohol? Never [facility] How many standard dr inks containing alcohol do you have on a typical day? Patient refused [facility] How hard is it for y ou to pay for the very basics like food, housing, medical care, and heating Not very hard [facility] Do you feel stress - tense, restless, nervous, or anxious, or unable to sleep at night because your mind is troubled all the time - these days [OSQ] Not at all [facility] (I/We) worried wheth er (my/our) food would run out before (I/we) got money to buy more. Sometimes true [facility] Start: 01-30-2023 End: 02-13-2023 Tobacco smoking status GAIS Unknown if ever smoked [facility] Start: 09-09-2020 Non-smoker [facility] Start: 2002 Sex Assigned At Female [facility] Are you now , , , , never or living with a partner? Refused [facility] How often to you hav e a drink containing alcohol? Monthly or less [facility] How many standard dr inks containing alcohol do you have on a typical day? 1 or 2 [facility] (I/We) worried wheth er (my/our) food would run out before (I/we) got money to buy more. Never true [facility] Start: 08-27-2024 Tobacco smoking stat us GAIS Ex-smoker (finding) [facility] Medical Equipment Procedure Code Equipment Code Equipment Origin al Text Equipment Identifier Dates Removal, ectopic , laparoscopic SEALANT,FLOSEAL HEMOSTATIC 5ML FDA Start: 09-09-2020 Removal, ectopic , laparoscopic SEALANT,FLOSEAL HEMOSTATIC 5ML FDA Start: 09-09-2020 Removal, ectopic , laparoscopic SEALANT,FLOSEAL HEMOSTATIC 5ML FDA Start: 09-09-2020 Removal, ectopic , laparoscopic SEALANT,FLOSEAL HEMOSTATIC 5ML FDA Start: 09-09-2020 Removal, ectopic , laparoscopic SEALANT,FLOSEAL HEMOSTATIC 5ML FDA Start: 09-09-2020 Functional Status Date Assessment Result Facility 10-27-2014 Are you deaf, or do you have serious difficulty hearing No 10/27/2014 9:31 AM Megha Bullard [facility] 10-27-2014 Are you blind, or do you have serious difficulty seeing, even when wearing glasses No 10/27/2014 9:31 AM Megha Bullard [facility] 10-27-2014 Do you have serious difficulty walking or climbing stairs No 10/27/2014 9:31 AM Megha Bullard [facility] 10-27-2014 Do you have difficul ty dressing or bathing No 10/27/2014 9:31 AM EDT Megha Arvizu [facility] Mental Status Date Assessment Result Facility 01-30-2023 Cognitive function Level Of Cons ciousness Awake;Alert;Appropriate [facility] Work Phone: 10-27-2014 Because of a physica l, mental, or emotional condition, do you have serious difficulty concentrating, remembering, or making decisions No 10/27/2014 9:31 AM EDT Megha Arvizu [facility] Clinical Notes 04-01-2013 to 08-27-2024 Note Date & Type Note Facility 08-27-2024 Evaluation note Diagnosis Onset Date Resolution ADHD acute August 27 9:43am Anxiety acute August 27 9:43am History of ectopic acute August 27, 2024 9:43am acute August 27 9:43am Smoker acute August 27 9:43am Supervision of high-risk acute August 27, 2024 9:43am ADHD acute September 16, 2024 11:29am Anxiety acute September 16, 2024 11:29am History of ectopic acute September 16, 2024 11:29am acute September 16, 2024 11:29am Smoker acute September 16, 2024 11:29am Supervision of high-risk acute September 16 11:29am [facility] Work Phone: 1(262) 781-673904-22-2025 Evaluation note* Diagnosis Onset Date Resolution Status Admit Date ADHD acute August 27 9:43am Anxiety acute August 27 9:43am History of ectopic acute August 27, 2024 9:43am acute August 27 9:43am Smoker acute August 27 9:43am Supervision of high-risk acute August 27, 2024 9:43am ADHD acute September 16, 2024 11:29am Anxiety acute September 16, 2024 11:29am History of ectopic acute September 16, 2024 11:29am acute September 16, 2024 11:29am Smoker acute September 16, 2024 11:29am Supervision of high-risk acute September 16, 2024 1 1:29am ADHD acute October 15 8:30am Anxiety acute October 15 8:30am Chlamydia infection affectin g acute October 15, 2024 8:30am History of ectopic acute October 15, 2024 8:30am acute October 15 8:30am Smoker acute October 15 8:30am Supervision of high-risk acute October 15, 2024 8:30am [facility] [employer] Work Phone: [phone] Telephone encounter Note* Telephone Encounter - MARELY SANCHEZ - 07/30/2024 7:54 AM EDT Patient scheduled for nurse visit 07/30/24 to receive PPD testing. Please place order at this time. Marely Sanchez LPN [facility]03-25-2025 Miscellaneous Notes* Telephone Encounter - MARELY SANCHEZ - 07/30/2024 7:54 AM EDT Patient scheduled for nurse visit 07/30/24 to receive PPD testing. Please place order at this time. Marely Sanchez LPN [facility]25 [id number] (AGENT OF COVID-19) RNA: Not detected INFLUENZA A RNA: Not detected INFLUENZA B RNA: Not detected RESPIRATORY SYNCYTIAL VIRUS (RSV) [facility]: [facility] on above:Performed By: #### [id number] ####[facility] LABCLIA [id number] [address] OF [id number] NoteHNO ID: [id number] Author: JANELLE WELDON APRN.[employer] Service: ? Author Type: Nurse Practitioner Type: Progress Notes Filed: 07/06/2024 11:46 Note Text: Subjective The history is provided by the patient. No foreign language teacher was used. KEITH Meyers is a 24 year old female who presents today for CC of cough, congestions, runny nose for 10 days. 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 She was seen on Monday and did not due any testing desires to have done today. She was also given prednisone on Monday and did not start. She states she also feels nausous. Denies any chance of BP 114/78 Pulse 81 Temp 36.3 ?C (97.4 ?F) Resp 20 Wt 63 kg (138 lb 14.2 oz) LMP 06/19/2024 (Exact Date) SpO2 97% BMI 25.89 kg/m? 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 HENT: Positive for congestion, sinus pain and sore throat. Negative for ear pain. Respiratory: Positive for cough. Negative for sputum production, shortness of breath and wheezing. Cardiovascular: Negative for chest pain. Musculoskeletal: Negative for myalgias. Neurological: Positive for headaches. Objective Physical Exam Vitals and nursing note reviewed. HENT: Head: Normocephalic and atraumatic. Right Ear: Tympanic membrane, ear canal and external ear normal. Left Ear: Tympanic membrane, ear canal and external ear normal. Nose: Mucosal edema, congestion and rhinorrhea present. Right Sinus: No maxillary sinus tenderness or frontal sinus tenderness. Left Sinus: No maxillary sinus tenderness or frontal sinus tenderness. Mouth/Throat: Pharynx: Uvula midline. No oropharyngeal exudate or posterior oropharyngeal erythema. Cardiovascular: Rate and Rhythm: Normal rate and regular rhythm. Heart sounds: Normal heart sounds. Pulmonary: Effort: Pulmonary effort is normal. Breath sounds: Normal breath sounds. Lymphadenopathy: Head: Right side of head: No submental, submandibular or tonsillar adenopathy. Left side of head: No submental, submandibular or tonsillar adenopathy. Cervical: No cervical adenopathy. Skin: General: Skin is warm and dry. Neurological: Mental Status: She is alert. Psychiatric: Mood and Affect: Affect normal. ASSESSMENT/PLAN: 1. Rhinosinusitis - ICD9: 473.9, ICD10: J32.9 - Will begin treatment with Augmentin 875 mg PO BID for 5 days - Supportive care with plenty of fluids, rest, and analgesia prn. - Follow up in one week if symptoms persist or worsen. - follow up with PCP prn Pepcid as needed for nausea - COVID AND INFLUENZA A/B AND RSV PCR, ROUTINE Diagnosis and treatment plan were discussed and questions were answered to the patient's satisfaction. Pt acknowledged understanding of concepts and follow up plan. Specific signs and symptoms that would indicate the need for higher level of care were discussed in detail warranting prompt ER evaluation. Janelle Weldon APRN.[facility] History of Present illness Narrative* Janelle Weldon APRN.[employer]ER - 07/06/2024 11:42 AM EST Subjective The history is provided by the patient. No foreign language teacher was used. KEITH Meyers is a 24 year old female who presents today for CC of cough, congestions, runny nose for 10 days. 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 She was seen on Monday and did not due any testing desires to have done today. She was also given prednisone on Monday and did not start. She states she also feels nausous. Denies any chance of BP 114/78 Pulse 81 Temp 36.3 C (97.4 F) Resp 20 Wt 63 kg (138 lb 14.2 oz) LMP 06/19/2024 (Exact Date) SpO2 97% BMI 25.89 kg/m Social History Tobacco Use Smoking status: Never Passive exposure: Yes Smokeless tobacco: Never Tobacco comments: Both parents inside and outside Substance Use Topics Alcohol use: No Drug use: No PAST MEDICAL HISTORY Diagnosis Date ADD (attention deficit disorder with hyperactivity) Anxiety 10/05/2014 Constipation 07/26/2011 resolved Fracture of distal end of radius 06/15/2012 Irregular menstrual cycle 03/11/2017 Irregular periods/menstrual cycles 09/2015 NEGATIVE HISTORY OF 04/22/2014 Normal Color Vision Poor weight gain (0-17) 11/08/2011 Right ovarian without intrauterine 09/05/2020 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 HENT: Positive for congestion, sinus pain and sore throat. Negative for ear pain. Respiratory: Positive for cough. Negative for sputum production, shortness of breath and wheezing. Cardiovascular: Negative for chest pain. Musculoskeletal: Negative for myalgias. Neurological: Positive for headaches. Objective Physical Exam Vitals and nursing note reviewed. HENT: Head: Normocephalic and atraumatic. Right Ear: Tympanic membrane, ear canal and external ear normal. Left Ear: Tympanic membrane, ear canal and external ear normal. Nose: Mucosal edema, congestion and rhinorrhea present. Right Sinus: No maxillary sinus tenderness or frontal sinus tenderness. Left Sinus: No maxillary sinus tenderness or frontal sinus tenderness. Mouth/Throat: Pharynx: Uvula midline. No oropharyngeal exudate or posterior oropharyngeal erythema. Cardiovascular: Rate and Rhythm: Normal rate and regular rhythm. Heart sounds: Normal heart sounds. Pulmonary: Effort: Pulmonary effort is normal. Breath sounds: Normal breath sounds. Lymphadenopathy: Head: Right side of head: No submental, submandibular or tonsillar adenopathy. Left side of head: No submental, submandibular or tonsillar adenopathy. Cervical: No cervical adenopathy. Skin: General: Skin is warm and dry. Neurological: Mental Status: She is alert. Psychiatric: Mood and Affect: Affect normal. ASSESSMENT/PLAN: 1. Rhinosinusitis - ICD9: 473.9, ICD10: J32.9 - Will begin treatment with Augmentin 875 mg PO BID for 5 days - Supportive care with plenty of fluids, rest, and analgesia prn. - Follow up in one week if symptoms persist or worsen. - follow up with PCP prn Pepcid as needed for nausea - COVID & INFLUENZA A/B & RSV PCR, ROUTINE Diagnosis and treatment plan were discussed and questions were answered to the patient's satisfaction. Pt acknowledged understanding of concepts and follow up plan. Specific signs and symptoms that would indicate the need for higher level of care were discussed indetail warranting prompt ER evaluation. Janelle Weldon APRN.LACEY documented in this encounterCity [facility]03-01-2025 Instructions* Patient Instructions* Janelle Weldon APRN.CNP - 07/06/2024 11:23 AM EST -Increase fluid intake. --Rest as much as possible. - Nasal saline spray, ameya pot, flonase Take the entire course of antibiotics as prescribed. DO NOT stop taking it early, even if you are feeling better. -Monitor for signs of worsening infection: increased temperature, pain in face, ear pain or headaches or increase in nasal congestion/mucous that is not improving. * Seek medical care immediately, call 911, go to ER if you have chest pain, difficulty breathing, shortness of breath, inability to swallow. documented in this encounterCity Hospital02-25-2025 NoteHNO ID: [id number] Author: CARLOS SALAZAR PA-C Service: ? Author Type: Physician [employer] Type: Progress Notes Filed: 07/02/2024 17:38 Note Text: This note was created using Cegal. Subjective Nan Meyers is a 24 year old female. Patient is a 24-year-old female who complains of sore throat that she has been experiencing for the past 5 days. Patient states that her symptoms initially included congestion and cough with fever and body aches, and the patient presumed that she was developing influenza. Patient states that her flu symptoms have resolved, however she is continue to experience a significant sore throat. Patient denies dysphagia and states she is tolerating food and fluids although it is painful to do so. Sore Throat Review of Systems HENT: Positive for sore throat. All other systems reviewed and are negative. Objective BP 122/74 Pulse 86 Temp 36.6 ?C (97.8 ?F) Resp 16 Wt 64.3 kg (141 lb 12.1 oz) LMP 05/04/2023 (Exact Date) SpO2 99% BMI 26.42 kg/m? Physical Exam Vitals and nursing note reviewed. Constitutional: Appearance: Normal appearance. She is normal weight. HENT: Head: Normocephalic and atraumatic. Right Ear: Tympanic membrane, ear canal and external ear normal. Left Ear: Tympanic membrane, ear canal and external ear normal. Nose: Nose normal. Mouth/Throat: Mouth: Mucous membranes are moist. Pharynx: Oropharynx is clear. Eyes: Extraocular Movements: Extraocular movements intact. Conjunctiva/sclera: Conjunctivae normal. Pupils: Pupils are equal, round, and reactive to light. Cardiovascular: Rate and Rhythm: Normal rate and regular rhythm. Pulses: Normal pulses. Heart sounds: Normal heart sounds. Pulmonary: Effort: Pulmonary effort is normal. Breath sounds: Normal breath sounds. Musculoskeletal: Cervical back: Normal range of motion and neck supple. Skin: General: Skin is warm and dry. Capillary Refill: Capillary refill takes less than 2 seconds. Neurological: General: No focal deficit present. Mental Status: She is alert and oriented to person, place, and time. Psychiatric: Mood and Affect: Mood normal. Behavior: Behavior normal. Thought Content: Thought content normal. Judgment: Judgment normal. Assessment and Plan Physical exam findings as noted above. Rapid strep test is negative. Patient was provided with a prescription for prednisone 20 mg and supportive care instructions were discussed. Patient verbalizes excellent understanding of same. CLINICAL IMPRESSION: Acute Pharyngitis ASSESSMENT/PLAN: 1. Sore throat - ICD9: 462, ICD10: J02.9 (primary diagnosis) - STREP A MOLECULAR (POC) 2. Acute pharyngitis, unspecified etiology - ICD9: 462, ICD10: J02.9 - PREDNISONE 20 MG TABLET [facility]02-25-2025 History of Present illness Narrative* Carlos Salazar PA-C - 07/02/2024 5:24 PM EST This note was created using NoteWriter. Subjective Nan Meyers is a 24 year old female. Patient is a 24-year-old female who complains of sore throat that she has been experiencing for thepast 5 days. Patient states that her symptoms initially included congestion and cough with fever and body aches, and the patient presumed that she was developing influenza. Patient states that her flu symptoms have resolved, however she is continue to experience a significant sore throat. Patient denies dysphagia and states she is tolerating food and fluids although it is painful to do so. Sore Throat Review of Systems HENT: Positive for sore throat. All other systems reviewed and are negative. Objective BP 122/74 Pulse 86 Temp 36.6 C (97.8 F) Resp 16 Wt 64.3 kg (141 lb 12.1 oz) LMP 05/04/2023 (Exact Date) SpO2 99% BMI 26.42 kg/m Physical Exam Vitals and nursing note reviewed. Constitutional: Appearance: Normal appearance. She is normal weight. HENT: Head: Normocephalic and atraumatic. Right Ear: Tympanic membrane, ear canal and external ear normal. Left Ear: Tympanic membrane, ear canal and external ear normal. Nose: Nose normal. Mouth/Throat: Mouth: Mucous membranes are moist. Pharynx: Oropharynx is clear. Eyes: Extraocular Movements: Extraocular movements intact. Conjunctiva/sclera: Conjunctivae normal. Pupils: Pupils are equal, round, and reactive to light. Cardiovascular: Rate and Rhythm: Normal rate and regular rhythm. Pulses: Normal pulses. Heart sounds: Normal heart sounds. Pulmonary: Effort: Pulmonary effort is normal. Breath sounds: Normal breath sounds. Musculoskeletal: Cervical back: Normal range of motion and neck supple. Skin: General: Skin is warm and dry. Capillary Refill: Capillary refill takes less than 2 seconds. Neurological: General: No focal deficit present. Mental Status: She is alert and oriented to person, place, and time. Psychiatric: Mood and Affect: Mood normal. Behavior: Behavior normal. Thought Content: Thought content normal. Judgment: Judgment normal. Assessment and Plan Physical exam findings as noted above. Rapid strep test is negative. Patient was provided with a prescription for prednisone 20 mg and supportive care instructions were discussed. Patient verbalizes excellent understanding of same. CLINICAL IMPRESSION: Acute Pharyngitis ASSESSMENT/PLAN: 1. Sore throat - ICD9: 462, ICD10: J02.9 (primary diagnosis) - STREP A MOLECULAR (POC) 2. Acute pharyngitis, unspecified etiology - ICD9: 462, ICD10: J02.9 - PREDNISONE 20 MG TABLET Carlos Salazar PA-C documented in this encounterCity Hospital02-11-2025 Instructions* Patient Instructions* Debbi Arceo APRN.CNP - 06/18/2024 12:01 PM EST ASSESSMENT/PLAN: 1. Flu-like symptoms - ICD9: 780.99, ICD10: R68.89 - COVID & INFLUENZA A/B & RSV PCR, ROUTINE - Follow-up with your PCP in 3-5 days if symptoms have not improved or sooner if symptoms worsen - Discussed red flags and need for immediate medical evaluation if any occur. - Discussed supportive care treatment with fluids, rest and analgesia. - Discussed expected course of illness Debbi Arceo APRN.CNP documented in this encounterCity Hospital02-11-2025 [id number] (AGENT OF COVID-19) RNA: Not detected INFLUENZA A RNA: Not detected INFLUENZA B RNA: Not detected RESPIRATORY SYNCYTIAL VIRUS (RSV) RNA: Not detectedOhiohealth Dublin Methodist HospitalComment on above:Performed By: #### [id number] ####[facility] LABCLIA [id number] [address] OF [id number] NoteHNO ID: [id number] Author: DEBBI ARCEO APRN.CNP Service: ? Author Type: Nurse Practitioner Type: Progress Notes Filed: 06/18/2024 12:02 Note Text: Subjective HPI Nan Meyers is a 24 year old female who presents with cough, chills, nausea, vomiting and headache for the past 3 days. 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 She has not had a fever. She has not missed a period-took a test at home which was negative. Review of Systems Constitutional: Positive for chills. Negative for fever. HENT: Negative for congestion and sore throat. Respiratory: Positive for cough. Cardiovascular: Negative. Gastrointestinal: Positive for nausea and vomiting. Negative for abdominal pain and diarrhea. Genitourinary: Negative for dysuria, frequency and urgency. Musculoskeletal: Negative for myalgias. Neurological: Positive for headaches. BP 110/78 Pulse 82 Temp 36.7 ?C (98.1 ?F) (Tympanic) Resp 18 Wt 64 kg (141 lb 1.5 oz) LMP 05/04/2023 (Exact Date) SpO2 98% BMI 26.30 kg/m? PAST MEDICAL HISTORY Diagnosis Date ADD (attention deficit disorder with hyperactivity) Anxiety 10/05/2014 Constipation 07/26/2011 resolved Fracture of distal end of radius 06/15/2012 Irregular menstrual cycle 03/11/2017 Irregular periods/menstrual cycles 09/2015 NEGATIVE HISTORY OF 04/22/2014 Normal Color Vision Poor weight gain (0-17) 11/08/2011 Right ovarian without intrauterine 09/05/2020 Short stature 04/01/2013 April 01, 2013 - bone age is delayed Short stature (child) 04/01/2013 PAST SURGICAL HISTORY Procedure Laterality Date NONE ALLERGIES Patient has no known allergies. MEDICATIONS No prescriptions on file. FAMILY HISTORY Problem Relation Age of Onset Hypertension Mother Maternal side - HTN other (Endometrosis) Mother Emphysema Maternal Grandfather Heart Maternal Grandfather other (lung cancer) Maternal Grandfather Hypertension Maternal Grandmother Heart Maternal Grandmother other (Bi-Polar) Maternal Grandmother Asthma Father Paternal side - Asthma Hypertension Father Paternal side - HTN Arthritis Paternal Grandmother Asthma Paternal Grandmother Alcohol/Drug Paternal Grandfather No Known Problems Sister Allergies Brother Asthma Brother Allergies Brother other (ADHD) Brother Social History Tobacco Use Smoking status: Never Passive exposure: Yes Smokeless tobacco: Never Tobacco comments: Both parents inside and outside Substance Use Topics Alcohol use: No Drug use: No Objective Physical Exam Vitals and nursing note reviewed. Constitutional: General: She is not in acute distress. Appearance: Normal appearance. She is not ill-appearing. HENT: Nose: Congestion present. Mouth/Throat: Mouth: Mucous membranes are moist. Pharynx: Oropharynx is clear. Uvula midline. No oropharyngeal exudate or posterior oropharyngeal erythema. Cardiovascular: Rate and Rhythm: Normal rate and regular rhythm. Heart sounds: Normal heart sounds. Pulmonary: Effort: Pulmonary effort is normal. No respiratory distress. Breath sounds: Normal breath sounds. No wheezing or rales. Musculoskeletal: Cervical back: Neck supple. Lymphadenopathy: Cervical: No cervical adenopathy. Skin: General: Skin is warm and dry. Findings: No erythema or rash. Neurological: Mental Status: She is alert. ASSESSMENT/PLAN: 1. Flu-like symptoms - ICD9: 780.99, ICD10: R68.89 - COVID AND INFLUENZA A/B AND RSV PCR, ROUTINE - Follow-up with your PCP in 3-5 days if symptoms have not improved or sooner if symptoms worsen - Discussed red flags and need for immediate medical evaluation if any occur. - Discussed supportive care treatment with fluids, rest and analgesia. - Discussed expected course of illness Debbi Arceo APRN.[facility]02-11-2025 History of Present illness Narrative* Debbi Arceo APRN.[facility] - 06/18/2024 11:58 AM EST Subjective HPI Nan Meyers is a 24 year old female who presents with cough, chills, nausea, vomiting andheadache for the past 3 days. 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 She has not had a fever. She has not missed a period-took a test at home which was negative. Review of Systems Constitutional: Positive for chills. Negative for fever. HENT: Negative for congestion and sore throat. Respiratory: Positive for cough. Cardiovascular: Negative. Gastrointestinal: Positive for nausea and vomiting. Negative for abdominal pain and diarrhea. Genitourinary: Negative for dysuria, frequency and urgency. Musculoskeletal: Negative for myalgias. Neurological: Positive for headaches. BP 110/78 Pulse 82 Temp 36.7 C (98.1 F) (Tympanic) Resp 18 Wt 64 kg (141 lb 1.5 oz) LMP 05/04/2023 (Exact Date) SpO2 98% BMI 26.30 kg/m PAST MEDICAL HISTORY Diagnosis Date ADD (attention deficit disorder with hyperactivity) Anxiety 10/05/2014 Constipation 07/26/2011 resolved Fracture of distal end of radius 06/15/2012 Irregular menstrual cycle 03/11/2017 Irregular periods/menstrual cycles 09/2015 NEGATIVE HISTORY OF 04/22/2014 Normal Color Vision Poor weight gain (0-17) 11/08/2011 Right ovarian without intrauterine 09/05/2020 Short stature 04/01/2013 April 01, 2013 - bone age is delayed Short stature (child) 04/01/2013 PAST SURGICAL HISTORY Procedure Laterality Date NONE ALLERGIES Patient has no known allergies. MEDICATIONS No prescriptions on file. FAMILY HISTORY Problem Relation Age of Onset Hypertension Mother Maternal side - HTN other (Endometrosis) Mother Emphysema Maternal Grandfather Heart Maternal Grandfather other (lung cancer) Maternal Grandfather Hypertension Maternal Grandmother Heart Maternal Grandmother other (Bi-Polar) Maternal Grandmother Asthma Father Paternal side - Asthma Hypertension Father Paternal side - HTN Arthritis Paternal Grandmother Asthma Paternal Grandmother Alcohol/Drug Paternal Grandfather No Known Problems Sister Allergies Brother Asthma Brother Allergies Brother other (ADHD) Brother Social History Tobacco Use Smoking status: Never Passive exposure: Yes Smokeless tobacco: Never Tobacco comments: Both parents inside and outside Substance Use Topics Alcohol use: No Drug use: No Objective Physical Exam Vitals and nursing note reviewed. Constitutional: General: She is not in acute distress. Appearance: Normal appearance. She is not ill-appearing. HENT: Nose: Congestion present. Mouth/Throat: Mouth: Mucous membranes are moist. Pharynx: Oropharynx is clear. Uvula midline. No oropharyngeal exudate or posterior oropharyngeal erythema. Cardiovascular: Rate and Rhythm: Normal rate and regular rhythm. Heart sounds: Normal heart sounds. Pulmonary: Effort: Pulmonary effort is normal. No respiratory distress. Breath sounds: Normal breath sounds. No wheezing or rales. Musculoskeletal: Cervical back: Neck supple. Lymphadenopathy: Cervical: No cervical adenopathy. Skin: General: Skin is warm and dry. Findings: No erythema or rash. Neurological: Mental Status: She is alert. ASSESSMENT/PLAN: 1. Flu-like symptoms - ICD9: 780.99, ICD10: R68.89 - COVID & INFLUENZA A/B & RSV PCR, ROUTINE - Follow-up with your PCP in 3-5 days if symptoms have not improved or sooner if symptoms worsen - Discussed red flags and need for immediate medical evaluation if any occur. - Discussed supportive care treatment with fluids, rest and analgesia. - Discussed expected course of illness Debbi Arceo APRN.[employer] documented in this encounterCity Hospital01-03-2025 NoteHNO ID: [id number] Author: MARISA WILLIAM APRN.CNP Service: ? Author Type: Nurse Practitioner Type: Progress Notes Filed: 05/10/2024 10:00 Note Text: Chief Complaint Patient presents with: Physical: Needs for new job HPI Nan Meyers is a 24 year old female who presents here today for Above Complaints. Nan is an established patient of myself. Concerns today.. 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 Intermittent RLE pain. Has been to express care twice for this in the last year. Pain to R quad off and on. Described as discomfort regardless of movement or at rest. Does not occur after injury, fall, or exercise/weight lifting. Described as soreness. Reports no discomfort currently for the last month or so. Wants to go to physical therapy as recommended by express care. Last express care visit for this on 11/03/23: ASSESSMENT/PLAN: 1. Pain of right lower extremity - ICD9: 729.5, ICD10: M79.604 Diagnosis right lower leg pain. Treat conservative at this time. Suspicious of overuse injury versus leg length discrepancy. Referred to PCP for physical therapy referral. I also discussed with patient that career information specialist may be beneficial. Patient was educated on supportive therapies. Patient will follow up with primary care provider as needed. No other concerns or complaints. Past medical history, appointments, medications, allergies reviewed. Previous Medical History PAST MEDICAL HISTORY Diagnosis Date ADD (attention deficit disorder with hyperactivity) Anxiety 10/05/2014 Constipation 07/26/2011 resolved Fracture of distal end of radius 06/15/2012 Irregular menstrual cycle 03/11/2017 Irregular periods/menstrual cycles 09/2015 NEGATIVE HISTORY OF 04/22/2014 Normal Color Vision Poor weight gain (0-17) 11/08/2011 Right ovarian without intrauterine 09/05/2020 Short stature 04/01/2013 April 01, 2013 - bone age is delayed Short stature (child) 04/01/2013 Previous Surgical History PAST SURGICAL HISTORY Procedure Laterality Date NONE Family History FAMILY HISTORY Problem Relation Age of Onset Hypertension Mother Maternal side - HTN other (Endometrosis) Mother Emphysema Maternal Grandfather Heart Maternal Grandfather other (lung cancer) Maternal Grandfather Hypertension Maternal Grandmother Heart Maternal Grandmother other (Bi-Polar) Maternal Grandmother Asthma Father Paternal side - Asthma Hypertension Father Paternal side - HTN Arthritis Paternal Grandmother Asthma Paternal Grandmother Alcohol/Drug Paternal Grandfather No Known Problems Sister Allergies Brother Asthma Brother Allergies Brother other (ADHD) Brother Patient Allergies ALLERGIES No Known Allergies Current Medications No current outpatient medications on file prior to visit. No current facility-administered medications on file prior to visit. Social History Social History Tobacco Use Smoking status: Never Passive exposure: Yes Smokeless tobacco: Never Tobacco comments: Both parents inside and outside Substance Use Topics Alcohol use: No Drug use: No REVIEW OF SYSTEMS: as above Reviewed relevant PMHx, PSHx, Social Hx, current medications and allergies. Review of Symptoms REVIEW OF SYSTEMS See HPI. EXAM: BP 120/64 (BP Site: Left Arm, BP Position: Sitting, BP Cuff Size: Regular Adult) Pulse 88 Resp 12 Ht 156 cm (5' 1.42) Wt 65 kg (143 lb 6.4 oz) LMP 05/04/2023 (Exact Date) SpO2 97% BMI 26.73 kg/m? General Appearance: Well appearing, alert, in no acute distress, well-hydrated, well nourished.. Skin: Skin color, texture, turgor normal, no suspicious rashes or lesions. Head: Normocephalic, no masses, lesions, tenderness or abnormalities. Lungs: Lungs clear to auscultation. No wheezing, rhonchi, rales.. Heart: RRR without murmur, gallop, or rubs. No ectopy. Abdomen: Normal abdominal exam, Abdomen soft, non-tender. Bowel sounds normal. No masses, organomegaly. Extremities: No deformities, edema, skin discoloration, clubbing or cyanosis. Good capillary refill. R hip slightly higher than L hip when standing straight upward. Musculoskeletal: No joint swelling, deformity, or tenderness. Neurologic: Gait normal. Reflexes normal and symmetric. Sensation grossly intact.. Health Maintenance List Meningococcal B Vaccine: Consider Based On Risk(1 of 2 - Patient Seeks Protection) Never done GC (Gonorrhea) Screening (18-24) Never done Depression Screening Never done Chlamydia Screening (18-24) Never done Cervical Cancer Screening Never done DTaP,Tdap,Td Vaccine(7 - Td or Tdap) due on 04/22/2024 Influenza Vaccine(1) due on 11/04/2024 Covid-19 Vaccine(1 - 2023-25 season) due on 05/10/2025 Hepatitis B Vaccine Completed HPV Vaccine Completed Hepatitis C Screening Discontinued HIV Screening Discontinued ASSESSMENT/ (more content not included)...[facility]01-03-2025 History of Present illness Narrative* Marisa William, LUIS CARLOS.[employer] - 05/10/2024 9:21 AM EST Chief Complaint Patient presents with: Physical: Needs for new job HPI Nan Meyers is a 24 year old female who presents here today for Above Complaints. Nan is an established patient of myself. Concerns today.. 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 Intermittent RLE pain. Has been to express care twice for this in the last year. Pain to R quad offand on. Described as discomfort regardless of movement or at rest. Does not occur after injury, fall, or exercise/weight lifting. Described as soreness. Reports no discomfort currently for the last month or so. Wants to go to physical therapy as recommended by express care. Last express care visit for this on 11/03/23: ASSESSMENT/PLAN: 1. Pain of right lower extremity - ICD9: 729.5, ICD10: M79.604 Diagnosis right lower leg pain. Treat conservative at this time. Suspicious of overuse injury versus leg length discrepancy. Referred to PCP for physical therapy referral. I also discussed with patient that career information specialist may be beneficial. Patient was educated on supportive therapies. Patient will follow up with primary care provider as needed. No other concerns or complaints. Past medical history, appointments, medications, allergies reviewed. Previous Medical History PAST MEDICAL HISTORY Diagnosis Date ADD (attention deficit disorder with hyperactivity) Anxiety 10/05/2014 Constipation 07/26/2011 resolved Fracture of distal end of radius 06/15/2012 Irregular menstrual cycle 03/11/2017 Irregular periods/menstrual cycles 09/2015 NEGATIVE HISTORY OF 04/22/2014 Normal Color Vision Poor weight gain (0-17) 11/08/2011 Right ovarian without intrauterine 09/05/2020 Short stature 04/01/2013 April 01, 2013 - bone age is delayed Short stature (child) 04/01/2013 Previous Surgical History PAST SURGICAL HISTORY Procedure Laterality Date NONE Family History FAMILY HISTORY Problem Relation Age of Onset Hypertension Mother Maternal side - HTN other (Endometrosis) Mother Emphysema Maternal Grandfather Heart Maternal Grandfather other (lung cancer) Maternal Grandfather Hypertension Maternal Grandmother Heart Maternal Grandmother other (Bi-Polar) Maternal Grandmother Asthma Father Paternal side - Asthma Hypertension Father Paternal side - HTN Arthritis Paternal Grandmother Asthma Paternal Grandmother Alcohol/Drug Paternal Grandfather No Known Problems Sister Allergies Brother Asthma Brother Allergies Brother other (ADHD) Brother Patient Allergies ALLERGIES No Known Allergies Current Medications No current outpatient medications on file prior to visit. No current facility-administered medications on file prior to visit. Social History Social History Tobacco Use Smoking status: Never Passive exposure: Yes Smokeless tobacco: Never Tobacco comments: Both parents inside and outside Substance Use Topics Alcohol use: No Drug use: No REVIEW OF SYSTEMS: as above Reviewed relevant PMHx, PSHx, Social Hx, current medications and allergies. Review of Symptoms REVIEW OF SYSTEMS See HPI. EXAM: BP 120/64 (BP Site: Left Arm, BP Position: Sitting, BP Cuff Size: Regular Adult) Pulse 88 Resp 12 Ht 156 cm (5' 1.42) Wt 65 kg (143 lb 6.4 oz) LMP 05/04/2023 (Exact Date) SpO2 97% BMI 26.73 kg/m General Appearance: Well appearing, alert, in no acute distress, well-hydrated, well nourished.. Skin: Skin color, texture, turgor normal, no suspicious rashes or lesions. Head: Normocephalic, no masses, lesions, tenderness or abnormalities. Lungs: Lungs clear to auscultation. No wheezing, rhonchi, rales.. Heart: RRR without murmur, gallop, or rubs. No ectopy. Abdomen: Normal abdominal exam, Abdomen soft, non-tender. Bowel sounds normal. No masses, organomegaly. Extremities: No deformities, edema, skin discoloration, clubbing or cyanosis. Good capillary refill. R hip slightly higher than L hip when standing straight upward. Musculoskeletal: No joint swelling, deformity, or tenderness. Neurologic: Gait normal. Reflexes normal and symmetric. Sensation grossly intact.. Health Maintenance List Meningococcal B Vaccine: Consider Based On Risk(1 of 2 - Patient Seeks Protection) Never done GC (Gonorrhea) Screening (18-24) Never done Depression Screening Never done Chlamydia Screening (18-24) Never done Cervical Cancer Screening Never done DTaP,Tdap,Td Vaccine(7 - Td or Tdap) due on 04/22/2024 Influenza Vaccine(1) due on 11/04/2024 Covid-19 Vaccine( - season) due on 05/10/2025 Hepatitis B Vaccine Completed HPV Vaccine Completed Hepatitis C Screening Discontinued HIV Screening Discontinued ASSESSMENT/PLAN: 1. Wellness examination - ICD9: V70.0, ICD10: Z00.00 (primary diagnosis) Paperwork filled out for employer. - Counseled on healthy diet and regular exercise - Recommend vitamin containing 0.4 mg of folic acid - Follow up for annual exam in one year - COMPREHENSIVE METABOLIC PANEL - COMPLETE BLOOD COUNT AND DIFFERENTIAL - LIPID PANEL BASIC - THYROID STIMULATING HORMONE - HEMOGLOBIN A1C 2. Family history of hypothyroidism - ICD9: V18.19, ICD10: Z83.49 - THYROID STIMULATING HORMONE 3. Right leg pain - ICD9: 729.5, ICD10: M79.604 Agree with express care concern for leg length discrepancy as R hip slightly higher than L hip. Agree with physical therapy consult. - CONSULT TO PHYSICAL THERAPY RTO annually and as needed. Prescription instructions reviewed with patient as applicable. Potential red flag symptoms discussed with the patient. Reviewed appropriate action plan to take if red flag symptoms occur. Patient agreeable to treatment plan. Marisa Pro APRN.[facility] [address] [place] [address] documented in this [facility]City [facility]24 NoteHNO ID: [id number] Author: NAINA NICHOLS APRN.CNP Service: ? Author Type: Nurse Practitioner Type: Progress Notes Filed: 02/05/2024 10:58 Note Text: CC: Patient presents with: Sore Throat: Congestion, ISAACS, dizziness, exposed to covid x 2 days HPI: Nan Meyers is a 24 year old female who presents to the office with complaint of head congestion, cough, nonproductive, and sore throat for a few days. Symptoms are staying the same. Associated symptoms includes cough. Denies fever, nausea, vomiting , and diarrhea. Treatments tried include nothing so far. with no relief of symptoms. Sick contacts: unknown. History of asthma, frequent episodes of bronchitis, chronic bronchitis, bronchiectasis or COPD: No Smoker: No Seasonal/environmental allergies: No The ROS is otherwise negative. The patient's pmh, medications, allergies, and past visits are reviewed. PHYSICAL EXAM: BP 102/68 Pulse 78 Temp 36.7 ?C (98 ?F) Resp 21 Wt 62.9 kg (138 lb 10.7 oz) LMP 05/04/2023 (Exact Date) SpO2 97% BMI 26.45 kg/m? General appearance: alert, cooperative, pleasant, in no acute distress Head: Normocephalic Eyes: EOM's intact, conjunctiva pink and moist, no icterus, sclera white, non-injected Ears: Right ear: External ear/canal- Normal, TM - clear with good landmarks. Left ear: External ear/canal- Normal, TM - clear with good landmarks Oropharynx:moist without lesions, No erythema, exudates or tonsillar hypertrophy. Heart: Negative. RRR without obvious murmur, gallop, or rubs. No ectopy. Lungs: clear to auscultation, without rales or wheeze, good air exchange PAST MEDICAL HISTORY Diagnosis Date ADD (attention deficit disorder with hyperactivity) Anxiety 10/05/2014 Constipation 07/26/2011 resolved Fracture of distal end of radius 06/15/2012 Irregular menstrual cycle 03/11/2017 Irregular periods/menstrual cycles 09/2015 NEGATIVE HISTORY OF 04/22/2014 Normal Color Vision Poor weight gain (0-17) 11/08/2011 Right ovarian without intrauterine 09/05/2020 Short stature 04/01/2013 April 01, 2013 - bone age is delayed Short stature (child) 04/01/2013 PAST SURGICAL HISTORY Procedure Laterality Date NONE ALLERGIES Patient has no known allergies. MEDICATIONS No prescriptions on file. FAMILY HISTORY Problem Relation Age of Onset Hypertension Mother Maternal side - HTN other (Endometrosis) Mother Emphysema Maternal Grandfather Heart Maternal Grandfather other (lung cancer) Maternal Grandfather Hypertension Maternal Grandmother Heart Maternal Grandmother other (Bi-Polar) Maternal Grandmother Asthma Father Paternal side - Asthma Hypertension Father Paternal side - HTN Arthritis Paternal Grandmother Asthma Paternal Grandmother Alcohol/Drug Paternal Grandfather No Known Problems Sister Allergies Brother Asthma Brother Allergies Brother other (ADHD) Brother Social History Tobacco Use Smoking status: Never Passive exposure: Yes Smokeless tobacco: Never Tobacco comments: Both parents inside and outside Substance Use Topics Alcohol use: No Drug use: No ASSESSMENT/PLAN: 1. URI, acute - ICD9: 465.9, ICD10: J06.9 - COVID AND INFLUENZA A/B AND RSV PCR, ROUTINE Otc meds for symptoms.. Potential red flag symptoms discussed with the patient. Reviewed appropriate action plan to take if red flag symptoms occur. Patient agreeable to treatment plan. Naina Nichols APRN.[facility]09-30-2024 History of Present illness Narrative* Naina Nichols APRN.[facility] - 02/05/2024 10:54 AM EDT CC: Patient presents with: Sore Throat: Congestion, ISAACS, dizziness, exposed to covid x 2 days HPI: Nan Meyers is a 24 year old female who presents to the office with complaint of head congestion, cough, nonproductive, and sore throat for a few days. Symptoms are staying the same. Associated symptoms includes cough. Denies fever, nausea, vomiting , and diarrhea. Treatments tried include nothing so far. with no relief of symptoms. Sick contacts: unknown. History of asthma, frequent episodes of bronchitis, chronic bronchitis, bronchiectasis or COPD: No Smoker: No Seasonal/environmental allergies: No The ROS is otherwise negative. The patient's pmh, medications, allergies, and past visits are reviewed. PHYSICAL EXAM: BP 102/68 Pulse 78 Temp 36.7 C (98 F) Resp 21 Wt 62.9 kg (138 lb 10.7 oz) LMP 05/04/2023 (Exact Date) SpO2 97% BMI 26.45 kg/m General appearance: alert, cooperative, pleasant, in no acute distress Head: Normocephalic Eyes: EOM's intact, conjunctiva pink and moist, no icterus, sclera white, non-injected Ears: Right ear: External ear/canal- Normal, TM - clear with good landmarks. Left ear: External ear/canal- Normal, TM - clear with good landmarks Oropharynx:moist without lesions, No erythema, exudates or tonsillar hypertrophy. Heart: Negative. RRR without obvious murmur, gallop, or rubs. No ectopy. Lungs: clear to auscultation, without rales or wheeze, good air exchange PAST MEDICAL HISTORY Diagnosis Date ADD (attention deficit disorder with hyperactivity) Anxiety 10/05/2014 Constipation 07/26/2011 resolved Fracture of distal end of radius 06/15/2012 Irregular menstrual cycle 03/11/2017 Irregular periods/menstrual cycles 09/2015 NEGATIVE HISTORY OF 04/22/2014 Normal Color Vision Poor weight gain (0-17) 11/08/2011 Right ovarian without intrauterine 09/05/2020 Short stature 04/01/2013 April 01, 2013 - bone age is delayed Short stature (child) 04/01/2013 PAST SURGICAL HISTORY Procedure Laterality Date NONE ALLERGIES Patient has no known allergies. MEDICATIONS No prescriptions on file. FAMILY HISTORY Problem Relation Age of Onset Hypertension Mother Maternal side - HTN other (Endometrosis) Mother Emphysema Maternal Grandfather Heart Maternal Grandfather other (lung cancer) Maternal Grandfather Hypertension Maternal Grandmother Heart Maternal Grandmother other (Bi-Polar) Maternal Grandmother Asthma Father Paternal side - Asthma Hypertension Father Paternal side - HTN Arthritis Paternal Grandmother Asthma Paternal Grandmother Alcohol/Drug Paternal Grandfather No Known Problems Sister Allergies Brother Asthma Brother Allergies Brother other (ADHD) Brother Social History Tobacco Use Smoking status: Never Passive exposure: Yes Smokeless tobacco: Never Tobacco comments: Both parents inside and outside Substance Use Topics Alcohol use: No Drug use: No ASSESSMENT/PLAN: 1. URI, acute - ICD9: 465.9, ICD10: J06.9 - COVID & INFLUENZA A/B & RSV PCR, ROUTINE Otc meds for symptoms.. Potential red flag symptoms discussed with the patient. Reviewed appropriate action plan to take if red flag symptoms occur. Patient agreeable to treatment plan. Naina Nichols APRN.[employer] documented in this encounterCity Hospital07-23-2024 NoteHNO ID: [id number] Author: STEF GUEVARA PA Service: ? Author Type: Physician [employer] Type: Progress Notes Filed: 11/28/2023 13:48 Note Text: This note was created using Cegal. Subjective Nan Meyers is a 23 year old female. HPI 23 year old female presents for headache x 2 days. Patient states that she started getting headache 2 days ago. She states it is not the worst headache of her life, it came on gradually. She states she took Motrin yesterday which helped with the headache. Today headache is a 5/10. Patient has not taken anything for the headache yet today. She has a little bit of nausea, no vomiting. No abdominal pain. No vision changes, numbness or weakness in the arms or legs. No cough, congestion, sore throat or URI symptoms. No concern for , LMP was about 2 weeks ago. Patient denies any history of recurrent headaches or migraines. Patient states she called off work today due to headache this morning and is requesting work note. No other complaint. PAST MEDICAL HISTORY Diagnosis Date ADD (attention deficit disorder with hyperactivity) Anxiety 10/05/2014 Constipation 07/26/2011 resolved Fracture of distal end of radius 06/15/2012 Irregular menstrual cycle 03/11/2017 Irregular periods/menstrual cycles 09/2015 NEGATIVE HISTORY OF 04/22/2014 Normal Color Vision Poor weight gain (0-17) 11/08/2011 Right ovarian without intrauterine 09/05/2020 Short stature 04/01/2013 April 01, 2013 - bone age is delayed Short stature (child) 04/01/2013 PAST SURGICAL HISTORY Procedure Laterality Date NONE ALLERGIES Patient has no known allergies. MEDICATIONS No prescriptions on file. FAMILY HISTORY Problem Relation Age of Onset Hypertension Mother Maternal side - HTN other (Endometrosis) Mother Emphysema Maternal Grandfather Heart Maternal Grandfather other (lung cancer) Maternal Grandfather Hypertension Maternal Grandmother Heart Maternal Grandmother other (Bi-Polar) Maternal Grandmother Asthma Father Paternal side - Asthma Hypertension Father Paternal side - HTN Arthritis Paternal Grandmother Asthma Paternal Grandmother Alcohol/Drug Paternal Grandfather No Known Problems Sister Allergies Brother Asthma Brother Allergies Brother other (ADHD) Brother Social History Tobacco Use Smoking status: Never Passive exposure: Yes Smokeless tobacco: Never Tobacco comments: Both parents inside and outside Substance Use Topics Alcohol use: No Drug use: No Review of Systems Constitutional: Negative for chills and fever. HENT: Negative for congestion, ear pain and sore throat. Respiratory: Negative for cough and shortness of breath. Cardiovascular: Negative for chest pain. Gastrointestinal: Negative for diarrhea and vomiting. Neurological: Positive for headaches. Objective BP 112/64 Pulse 88 Temp 36.1 ?C (96.9 ?F) Resp 16 Wt 62.4 kg (137 lb 9.1 oz) LMP 05/04/2023 (Exact Date) SpO2 98% BMI 26.24 kg/m? Physical Exam Vitals and nursing note reviewed. Constitutional: General: She is not in acute distress. Appearance: Normal appearance. She is not toxic-appearing. HENT: Head: Normocephalic and atraumatic. Nose: Nose normal. Mouth/Throat: Mouth: Mucous membranes are moist. Eyes: General: Vision grossly intact. Extraocular Movements: Extraocular movements intact. Conjunctiva/sclera: Conjunctivae normal. Pupils: Pupils are equal, round, and reactive to light. Cardiovascular: Rate and Rhythm: Normal rate and regular rhythm. Pulmonary: Effort: Pulmonary effort is normal. Breath sounds: Normal breath sounds. Skin: General: Skin is warm and dry. Neurological: General: No focal deficit present. Mental Status: She is alert and oriented to person, place, and time. Sensory: Sensation is intact. Motor: Motor function is intact. Coordination: Coordination is intact. Gait: Gait is intact. Assessment and Plan ASSESSMENT/PLAN: 1. Headache, unspecified headache type - ICD9: 784.0, ICD10: R51.9 - Improves with Motrin. Improved today. - Requesting work note- note given for today. - Continue tylenol/motrin as needed. - Follow up with pcp if no improvement - No red flag symptoms. Discussed red flag symptoms and when to go to ER. Diagnosis and treatment plan were discussed and questions were answered to the patient's satisfaction. Pt acknowledged understanding of concepts and follow up plan. Specific signs and symptoms that would indicate the need for higher level of care were discussed in detail warranting prompt ER evaluation. [facility]07-23-[facility]24 History of Present illness Narrative* Stef Guevara PA - 11/28/2023 1:40 PM EDT This note was created using Cegal. Subjective Nan Meyers is a 23 year old female. HPI 23 year old female presents for headache x 2 days. Patient states that she started getting headache 2 days ago. She states it is not the worst headache of her life, it came on gradually. She states she took Motrin yesterday which helped with the headache. Today headache is a 5/10. Patient has not taken anything for the headache yet today. She has a little bit of nausea, no vomiting. No abdominal pain. No vision changes, numbness or weakness in the arms or legs. No cough, congestion, sore throat or URI symptoms. No concern for , LMP was about 2 weeks ago. Patient denies any history of recurrent headaches or migraines. Patient states she called off work today due to headache thismorning and is requesting work note. No other complaint. PAST MEDICAL HISTORY Diagnosis Date ADD (attention deficit disorder with hyperactivity) Anxiety 10/05/2014 Constipation 07/26/2011 resolved Fracture of distal end of radius 06/15/2012 Irregular menstrual cycle 03/11/2017 Irregular periods/menstrual cycles 09/2015 NEGATIVE HISTORY OF 04/22/2014 Normal Color Vision Poor weight gain (0-17) 11/08/2011 Right ovarian without intrauterine 09/05/2020 Short stature 04/01/2013 April 01, 2013 - bone age is delayed Short stature (child) 04/01/2013 PAST SURGICAL HISTORY Procedure Laterality Date NONE ALLERGIES Patient has no known allergies. MEDICATIONS No prescriptions on file. FAMILY HISTORY Problem Relation Age of Onset Hypertension Mother Maternal side - HTN other (Endometrosis) Mother Emphysema Maternal Grandfather Heart Maternal Grandfather other (lung cancer) Maternal Grandfather Hypertension Maternal Grandmother Heart Maternal Grandmother other (Bi-Polar) Maternal Grandmother Asthma Father Paternal side - Asthma Hypertension Father Paternal side - HTN Arthritis Paternal Grandmother Asthma Paternal Grandmother Alcohol/Drug Paternal Grandfather No Known Problems Sister Allergies Brother Asthma Brother Allergies Brother other (ADHD) Brother Social History Tobacco Use Smoking status: Never Passive exposure: Yes Smokeless tobacco: Never Tobacco comments: Both parents inside and outside Substance Use Topics Alcohol use: No Drug use: No Review of Systems Constitutional: Negative for chills and fever. HENT: Negative for congestion, ear pain and sore throat. Respiratory: Negative for cough and shortness of breath. Cardiovascular: Negative for chest pain. Gastrointestinal: Negative for diarrhea and vomiting. Neurological: Positive for headaches. Objective BP 112/64 Pulse 88 Temp 36.1 C (96.9 F) Resp 16 Wt 62.4 kg (137 lb 9.1 oz) LMP 05/04/2023(Exact Date) SpO2 98% BMI 26.24 kg/m Physical Exam Vitals and nursing note reviewed. Constitutional: General: She is not in acute distress. Appearance: Normal appearance. She is not toxic-appearing. HENT: Head: Normocephalic and atraumatic. Nose: Nose normal. Mouth/Throat: Mouth: Mucous membranes are moist. Eyes: General: Vision grossly intact. Extraocular Movements: Extraocular movements intact. Conjunctiva/sclera: Conjunctivae normal. Pupils: Pupils are equal, round, and reactive to light. Cardiovascular: Rate and Rhythm: Normal rate and regular rhythm. Pulmonary: Effort: Pulmonary effort is normal. Breath sounds: Normal breath sounds. Skin: General: Skin is warm and dry. Neurological: General: No focal deficit present. Mental Status: She is alert and oriented to person, place, and time. Sensory: Sensation is intact. Motor: Motor function is intact. Coordination: Coordination is intact. Gait: Gait is intact. Assessment and Plan ASSESSMENT/PLAN: 1. Headache, unspecified headache type - ICD9: 784.0, ICD10: R51.9 - Improves with Motrin. Improved today. - Requesting work note- note given for today. - Continue tylenol/motrin as needed. - Follow up with pcp if no improvement - No red flag symptoms. Discussed red flag symptoms and when to go to ER. Diagnosis and treatment plan were discussed and questions were answered to the patient's satisfaction. Pt acknowledged understanding of concepts and follow up plan. Specific signs and symptoms that would indicate the need for higher level of care were discussed in detail warranting prompt ER evaluation. JAMMIE Farris documented in this encounterCity Hospital06-28-2024 NoteHNO ID: [id number] Author: BELTRAN CARREON APRN.[employer] Service: ? Author Type: Nurse Practitioner Type: Progress Notes Filed: 11/03/2023 08:20 Note Text: Subjective HPI Nontoxic-appearing female presents urgent care chief complaint right thigh pain. Duration of symptoms 2 days. Associated symptoms right thigh pain. No known injury. Has had leg pain in the past this feels similar. Does not know if they are related to work. Does work as an [employer] works 12-hour days. No numbness no tingling. No change in bowel or bladder habit. Overall feels well. Denies fractures or surgeries to this leg in the past. Past medical history prescription medications allergies reviewed. .Patient presents with: Thigh Pain: Right pain in thigh.. No known injury. X2 days PAST MEDICAL HISTORY Diagnosis Date ADD (attention deficit disorder with hyperactivity) Anxiety 10/05/2014 Constipation 07/26/2011 resolved Fracture of distal end of radius 06/15/2012 Irregular menstrual cycle 03/11/2017 Irregular periods/menstrual cycles 09/2015 NEGATIVE HISTORY OF 04/22/2014 Normal Color Vision Poor weight gain (0-17) 11/08/2011 Right ovarian without intrauterine 09/05/2020 Short stature 04/01/2013 April 01, 2013 - bone age is delayed Short stature (child) 04/01/2013 PAST SURGICAL HISTORY Procedure Laterality Date NONE ALLERGIES Patient has no known allergies. MEDICATIONS No prescriptions on file. FAMILY HISTORY Problem Relation Age of Onset Hypertension Mother Maternal side - HTN other (Endometrosis) Mother Emphysema Maternal Grandfather Heart Maternal Grandfather other (lung cancer) Maternal Grandfather Hypertension Maternal Grandmother Heart Maternal Grandmother other (Bi-Polar) Maternal Grandmother Asthma Father Paternal side - Asthma Hypertension Father Paternal side - HTN Arthritis Paternal Grandmother Asthma Paternal Grandmother Alcohol/Drug Paternal Grandfather No Known Problems Sister Allergies Brother Asthma Brother Allergies Brother other (ADHD) Brother Social History Tobacco Use Smoking status: Never Passive exposure: Yes Smokeless tobacco: Never Tobacco comments: Both parents inside and outside Substance Use Topics Alcohol use: No Drug use: No BP 116/68 Pulse 82 Temp 36.3 ?C (97.3 ?F) Resp 18 Wt 64.6 kg (142 lb 6.7 oz) LMP 05/04/2023 (Exact Date) SpO2 97% BMI 27.17 kg/m? Review of Systems Constitutional: Negative for chills, fever and malaise/fatigue. HENT: Negative for congestion, ear discharge, ear pain, sinus pain and sore throat. Eyes: Negative for blurred vision, pain, discharge and redness. Respiratory: Negative for cough, hemoptysis, sputum production, shortness of breath, wheezing and stridor. Cardiovascular: Negative for chest pain. Gastrointestinal: Negative for abdominal pain, diarrhea, nausea and vomiting. Musculoskeletal: Negative for back pain, falls, joint pain, myalgias and neck pain. Skin: Negative for itching and rash. Neurological: Negative for dizziness and headaches. Objective Physical Exam Constitutional: General: She is not in acute distress. Appearance: She is not toxic-appearing. HENT: Head: Normocephalic. Nose: Nose normal. Eyes: Pupils: Pupils are equal, round, and reactive to light. Cardiovascular: Rate and Rhythm: Normal rate. Pulmonary: Effort: Pulmonary effort is normal. No respiratory distress. Musculoskeletal: Cervical back: Normal range of motion. Right hip: Normal. Left hip: Normal. Right upper leg: Tenderness present. No swelling, edema, lacerations or bony tenderness. Left upper leg: Normal. Right knee: Normal. Left knee: Normal. Legs: Comments: Pain to highlighted area. No erythema edema noted. Skin: General: Skin is warm and dry. Neurological: General: No focal deficit present. Mental Status: She is alert. ASSESSMENT/PLAN: 1. Pain of right lower extremity - ICD9: 729.5, ICD10: M79.604 Diagnosis right lower leg pain. Treat conservative at this time. Suspicious of overuse injury versus leg length discrepancy. Referred to PCP for physical therapy referral. I also discussed with patient that career information specialist may be beneficial. Patient was educated on supportive therapies. Patient will follow up with primary care provider as needed. Patient was instructed to immediately proceed to emergency room for any new, worsening, or symptoms lasting longer than anticipated. The patient's clinical presentation is otherwise unremarkable at this time. Based on exam and clinical finding, the patient is stable for discharge. Plan of care was discussed with patient. Patient verbalizes understanding and agrees to plan of care. This note was generated using [employer] software. It may contain errors in wording, punctuation, or spelling. Beltran Carreon APRN.[facility]06-28-2024 History of Present illness Narrative* Beltran Carreon APRN.[employer] - 11/03/2023 8:03 AM EDT Images from the original note were not included. Subjective HPI Nontoxic-appearing female presents urgent care chief complaint right thigh pain. Duration of symptoms 2 days. Associated symptoms right thigh pain. No known injury. Has had leg pain in the past this feels similar. Does not know if they are related to work. Does work as an [employer] works 12-hour days. No numbness no tingling. No change in bowel or bladder habit. Overall feels well. Denies fractures or surgeries to this leg in the past. Past medical history prescription medications allergies reviewed. .Patient presents with: Thigh Pain: Right pain in thigh.. No known injury. X2 days PAST MEDICAL HISTORY Diagnosis Date ADD (attention deficit disorder with hyperactivity) Anxiety 10/05/2014 Constipation 07/26/2011 resolved Fracture of distal end of radius 06/15/2012 Irregular menstrual cycle 03/11/2017 Irregular periods/menstrual cycles 09/2015 NEGATIVE HISTORY OF 04/22/2014 Normal Color Vision Poor weight gain (0-17) 11/08/2011 Right ovarian without intrauterine 09/05/2020 Short stature 04/01/2013 April 01, 2013 - bone age is delayed Short stature (child) 04/01/2013 PAST SURGICAL HISTORY Procedure Laterality Date NONE ALLERGIES Patient has no known allergies. MEDICATIONS No prescriptions on file. FAMILY HISTORY Problem Relation Age of Onset Hypertension Mother Maternal side - HTN other (Endometrosis) Mother Emphysema Maternal Grandfather Heart Maternal Grandfather other (lung cancer) Maternal Grandfather Hypertension Maternal Grandmother Heart Maternal Grandmother other (Bi-Polar) Maternal Grandmother Asthma Father Paternal side - Asthma Hypertension Father Paternal side - HTN Arthritis Paternal Grandmother Asthma Paternal Grandmother Alcohol/Drug Paternal Grandfather No Known Problems Sister Allergies Brother Asthma Brother Allergies Brother other (ADHD) Brother Social History Tobacco Use Smoking status: Never Passive exposure: Yes Smokeless tobacco: Never Tobacco comments: Both parents inside and outside Substance Use Topics Alcohol use: No Drug use: No BP 116/68 Pulse 82 Temp 36.3 C (97.3 F) Resp 18 Wt 64.6 kg (142 lb 6.7 oz) LMP 05/04/2023(Exact Date) SpO2 97% BMI 27.17 kg/m Review of Systems Constitutional: Negative for chills, fever and malaise/fatigue. HENT: Negative for congestion, ear discharge, ear pain, sinus pain and sore throat. Eyes: Negative for blurred vision, pain, discharge and redness. Respiratory: Negative for cough, hemoptysis, sputum production, shortness of breath, wheezing and stridor. Cardiovascular: Negative for chest pain. Gastrointestinal: Negative for abdominal pain, diarrhea, nausea and vomiting. Musculoskeletal: Negative for back pain, falls, joint pain, myalgias and neck pain. Skin: Negative for itching and rash. Neurological: Negative for dizziness and headaches. Objective Physical Exam Constitutional: General: She is not in acute distress. Appearance: She is not toxic-appearing. HENT: Head: Normocephalic. Nose: Nose normal. Eyes: Pupils: Pupils are equal, round, and reactive to light. Cardiovascular: Rate and Rhythm: Normal rate. Pulmonary: Effort: Pulmonary effort is normal. No respiratory distress. Musculoskeletal: Cervical back: Normal range of motion. Right hip: Normal. Left hip: Normal. Right upper leg: Tenderness present. No swelling, edema, lacerations or bony tenderness. Left upper leg: Normal. Right knee: Normal. Left knee: Normal. Legs: Comments: Pain to highlighted area. No erythema edema noted. Skin: General: Skin is warm and dry. Neurological: General: No focal deficit present. Mental Status: She is alert. ASSESSMENT/PLAN: 1. Pain of right lower extremity - ICD9: 729.5, ICD10: M79.604 Diagnosis right lower leg pain. Treat conservative at this time. Suspicious of overuse injury versus leg length discrepancy. Referred to PCP for physical therapy referral. I also discussed with patient that career information specialist may be beneficial. Patient was educated on supportive therapies. Patient will follow up with primary care provider as needed. Patient was instructed to immediately proceed toemergency room for any new, worsening, or symptoms lasting longer than anticipated. The patient's clinical presentation is otherwise unremarkable at this time. Based on exam and clinical finding, thepatient is stable for discharge. Plan of care was discussed with patient. Patient verbalizes underst anding and agrees to plan of care. This note was generated using [employer] software. It may contain errors in wording, punctuation, or spelling. Beltran Carreon APRN.[facility] documented in this encounterCity [facility]04-[facility]24 NoteHNO ID: [id number] Author: MARISA WILLIAM APRN.[facility] Service: ? Author Type: Nurse Practitioner Type: Progress Notes Filed: 09/01/2023 14:29 Note Text: Chief Complaint Patient presents with: physical HPI Nan Meyers is a 23 year old female who presents here today for Above Complaints. Nan is an established patient of Dr. Joiner, Do and myself. Concerns today... 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 Has paperwork to fill out. Recent wellness exam completed in March as well without any abnormalities. Had nexplanon taken out recently. No current contraception. No concerns or complaints today. Past medical history, appointments, medications, allergies reviewed. Previous Medical History PAST MEDICAL HISTORY Diagnosis Date ADD (attention deficit disorder with hyperactivity) Anxiety 10/05/2014 Constipation 07/26/2011 resolved Fracture of distal end of radius 06/15/2012 Irregular menstrual cycle 03/11/2017 Irregular periods/menstrual cycles 09/2015 NEGATIVE HISTORY OF 04/22/2014 Normal Color Vision Poor weight gain (0-17) 11/08/2011 Right ovarian without intrauterine 09/05/2020 Short stature 04/01/2013 April 01, 2013 - bone age is delayed Short stature (child) 04/01/2013 Previous Surgical History PAST SURGICAL HISTORY Procedure Laterality Date NONE Family History FAMILY HISTORY Problem Relation Age of Onset Hypertension Mother Maternal side - HTN other (Endometrosis) Mother Emphysema Maternal Grandfather Heart Maternal Grandfather other (lung cancer) Maternal Grandfather Hypertension Maternal Grandmother Heart Maternal Grandmother other (Bi-Polar) Maternal Grandmother Asthma Father Paternal side - Asthma Hypertension Father Paternal side - HTN Arthritis Paternal Grandmother Asthma Paternal Grandmother Alcohol/Drug Paternal Grandfather No Known Problems Sister Allergies Brother Asthma Brother Allergies Brother other (ADHD) Brother Patient Allergies ALLERGIES No Known Allergies Current Medications Current Outpatient Medications on File Prior to Visit Medication Sig etonogestrel (NEXPLANON) 68 mg impl subdermal implant ONCE (Patient not taking: Reported on 09/01/2023) No current facility-administered medications on file prior to visit. Social History Social History Tobacco Use Smoking status: Never Passive exposure: Yes Smokeless tobacco: Never Tobacco comments: Both parents inside and outside Substance Use Topics Alcohol use: No Drug use: No REVIEW OF SYSTEMS: as above Reviewed relevant PMHx, PSHx, Social Hx, current medications and allergies. Review of Symptoms REVIEW OF SYSTEMS PAIN ASSESSMENT: Negative for pain, history of chronic pain, or current treatment for a chronic pain condition. GENERAL: No weight loss, malaise or fevers HEENT: Negative for frequent or significant headaches, No changes in hearing or vision, no nose bleeds or other nasal problems NECK: Negative for lumps, goiter, pain and significant neck swelling RESPIRATORY: Negative for cough, hemoptysis, wheezing, COPD, dyspnea or shortness of breath CARDIOVASCULAR: Negative for chest pain, leg swelling, hypertension, CHF or palpitations GI: No nausea, vomiting, or diarrhea : No history of dysuria, frequency or incontinence PLASTIC TECHNICIAN: Negative for abnormal vaginal bleeding, abnormal vaginal discharge MUSCULOSKELETAL: Negative for joint pain or swelling, back pain or muscle pain SKIN: Negative for lesions, rash, and itching PSYCH: Negative for sleep disturbance, mood disorder and recent psychosocial stressors HEMATOLOGY/LYMPHOLOGY: Negative for prolonged bleeding, bruising easily or swollen nodes ENDOCRINE: Negative for cold or heat intolerance, polyuria, polydipsia and goiter NEURO: No history of headaches, syncope, paralysis, seizures or tremors EXAM: BP 110/62 (BP Site: Left Arm, BP Position: Sitting, BP Cuff Size: Regular Adult) Pulse 60 Resp 12 Ht 154.2 cm (5' 0.71) Wt 63 kg (139 lb) LMP 05/04/2023 (Exact Date) BMI 26.52 kg/m? General Appearance: Well appearing, alert, in no acute distress, well-hydrated, well nourished.. Skin: Skin color, texture, turgor normal, no suspicious rashes or lesions. Head: Normocephalic, no masses, lesions, tenderness or abnormalities. Lungs: Lungs clear to auscultation. No wheezing, rhonchi, rales.. Heart: RRR without murmur, gallop, or rubs. No ectopy. Abdomen: Normal abdominal exam, Abdomen soft, non-tender. Bowel sounds normal. No masses, organomegaly. Extremities: No deformities, edema, skin discoloration, clubbing or cyanosis. Good capillary refill. . Musculoskeletal: No joint swelling, deformity, or tenderness. Peripheral Pulses: Normal. Neurologic: Gait normal. Reflexes normal and symmetric. Sensation grossly intact.. Health Maintenance List Meningococcal B Vaccine: Consider Based On Risk(1 of (more content not included)...[facility]04-26-2024 History of Present illness Narrative* Marisa William APRN.[employer] - 09/01/2023 1:17 PM EDT Chief Complaint Patient presents with: physical HPI Nan Meyers is a 23 year old female who presents here today for Above Complaints. Nan is an established patient of Dr. Joiner, Do and myself. Concerns today... 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 Has paperwork to fill out. Recent wellness exam completed in March as well without any abnormalities. Had nexplanon taken out recently. No current contraception. No concerns or complaints today. Past medical history, appointments, medications, allergies reviewed. Previous Medical History PAST MEDICAL HISTORY Diagnosis Date ADD (attention deficit disorder with hyperactivity) Anxiety 10/05/2014 Constipation 07/26/2011 resolved Fracture of distal end of radius 06/15/2012 Irregular menstrual cycle 03/11/2017 Irregular periods/menstrual cycles 09/2015 NEGATIVE HISTORY OF 04/22/2014 Normal Color Vision Poor weight gain (0-17) 11/08/2011 Right ovarian without intrauterine 09/05/2020 Short stature 04/01/2013 April 01, 2013 - bone age is delayed Short stature (child) 04/01/2013 Previous Surgical History PAST SURGICAL HISTORY Procedure Laterality Date NONE Family History FAMILY HISTORY Problem Relation Age of Onset Hypertension Mother Maternal side - HTN other (Endometrosis) Mother Emphysema Maternal Grandfather Heart Maternal Grandfather other (lung cancer) Maternal Grandfather Hypertension Maternal Grandmother Heart Maternal Grandmother other (Bi-Polar) Maternal Grandmother Asthma Father Paternal side - Asthma Hypertension Father Paternal side - HTN Arthritis Paternal Grandmother Asthma Paternal Grandmother Alcohol/Drug Paternal Grandfather No Known Problems Sister Allergies Brother Asthma Brother Allergies Brother other (ADHD) Brother Patient Allergies ALLERGIES No Known Allergies Current Medications Current Outpatient Medications on File Prior to Visit Medication Sig etonogestrel (NEXPLANON) 68 mg impl subdermal implant ONCE (Patient not taking: Reported on 09/01/2023) No current facility-administered medications on file prior to visit. Social History Social History Tobacco Use Smoking status: Never Passive exposure: Yes Smokeless tobacco: Never Tobacco comments: Both parents inside and outside Substance Use Topics Alcohol use: No Drug use: No REVIEW OF SYSTEMS: as above Reviewed relevant PMHx, PSHx, Social Hx, current medications and allergies. Review of Symptoms REVIEW OF SYSTEMS PAIN ASSESSMENT: Negative for pain, history of chronic pain, or current treatment for a chronic pain condition. GENERAL: No weight loss, malaise or fevers HEENT: Negative for frequent or significant headaches, No changes in hearing or vision, no nose bleeds or other nasal problems NECK: Negative for lumps, goiter, pain and significant neck swelling RESPIRATORY: Negative for cough, hemoptysis, wheezing, COPD, dyspnea or shortness of breath CARDIOVASCULAR: Negative for chest pain, leg swelling, hypertension, CHF or palpitations GI: No nausea, vomiting, or diarrhea : No history of dysuria, frequency or incontinence PLASTIC TECHNICIAN: Negative for abnormal vaginal bleeding, abnormal vaginal discharge MUSCULOSKELETAL: Negative for joint pain or swelling, back pain or muscle pain SKIN: Negative for lesions, rash, and itching PSYCH: Negative for sleep disturbance, mood disorder and recent psychosocial stressors HEMATOLOGY/LYMPHOLOGY: Negative for prolonged bleeding, bruising easily or swollen nodes ENDOCRINE: Negative for cold or heat intolerance, polyuria, polydipsia and goiter NEURO: No history of headaches, syncope, paralysis, seizures or tremors EXAM: BP 110/62 (BP Site: Left Arm, BP Position: Sitting, BP Cuff Size: Regular Adult) Pulse 60 Resp 12 Ht 154.2 cm (5' 0.71) Wt 63 kg (139 lb) LMP 05/04/2023 (Exact Date) BMI 26.52 kg/m General Appearance: Well appearing, alert, in no acute distress, well-hydrated, well nourished.. Skin: Skin color, texture, turgor normal, no suspicious rashes or lesions. Head: Normocephalic, no masses, lesions, tenderness or abnormalities. Lungs: Lungs clear to auscultation. No wheezing, rhonchi, rales.. Heart: RRR without murmur, gallop, or rubs. No ectopy. Abdomen: Normal abdominal exam, Abdomen soft, non-tender. Bowel sounds normal. No masses, organomegaly. Extremities: No deformities, edema, skin discoloration, clubbing or cyanosis. Good capillary refill. . Musculoskeletal: No joint swelling, deformity, or tenderness. Peripheral Pulses: Normal. Neurologic: Gait normal. Reflexes normal and symmetric. Sensation grossly intact.. Health Maintenance List Meningococcal B Vaccine: Consider Based On Risk(1 of 2 - Patient Seeks Protection) Never done GC (Gonorrhea) Screening (18-24) Never done Chlamydia Screening (18-) Never done Pap Testing Never done Behavioral Health Screening Never done Covid-19 Vaccine( season) due on 03/29/2024 Influenza Vaccine(Season Ended) due on 01/07/2024 DTaP,Tdap,Td Vaccine(7 - Td or Tdap) due on 04/22/2024 Hepatitis B Vaccine Completed HPV Vaccine Completed Hepatitis C Screening Discontinued HIV Screening Discontinued ASSESSMENT/PLAN: 1. 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 No concerns. - immunization record printed for employer. RTO annually and as needed. Prescription instructions reviewed with patient as applicable. Potential red flag symptoms discussed with the patient. Reviewed appropriate action plan to take if red flag symptoms occur. Patient agreeable to treatment plan. Marisa Pro APRN.CNP [id number] [place] [address] documented in this encounterCity Hospital02-27-2024 History of Present illness Narrative* Naina Nichols APRN.CNP - 07/04/2023 3:44 PM EST CC: Patient presents with: Ear Pain: left and sore throat x 1 day Patient reports L ear pain that started yesterday. This morning she woke up with a sore throat as well. Denies sick contact. HPI: Nan Meyers is a 23 year old female who presents to the office with complaint of sore throat and ear symptoms for the past day. Symptoms are staying the same. Associated symptoms includes sore throat and ear pain. Denies nasal congestion, cough, dyspnea, nausea, vomiting , and diarrhea. Treatments tried include nothing so far. with no relief of symptoms. Sick contacts: no. History of asthma, frequent episodes of bronchitis, chronic bronchitis, bronchiectasis or COPD: No Smoker: No Seasonal/environmental allergies: No The ROS is otherwise negative. The patient's pmh, medications, allergies, and past visits are reviewed. PHYSICAL EXAM: BP 124/74 Pulse 92 Temp 36.9 C (98.5 F) Resp 16 Wt 63 kg (139 lb) LMP 05/04/2023 (Exact Date) SpO2 98% BMI 26.08 kg/m General appearance: alert, cooperative, pleasant, in no acute distress Head: Normocephalic Eyes: PERRLA, EOM's intact, conjunctiva pink and moist, no icterus, sclera white, non-injected Ears: Right ear: External ear/canal- Normal, TM - clear with good landmarks. Left ear: External ear/canal- Normal, TM - erythematous Nose: clear. Oropharynx:moist without lesions, mild erythema, without exudates present Neck:supple and no adenopathy Heart: Negative. RRR without obvious murmur, gallop, or rubs. No ectopy. Lungs: clear to auscultation, without rales or wheeze, good air exchange PAST MEDICAL HISTORY Diagnosis Date ADD (attention deficit disorder with hyperactivity) Anxiety 10/05/2014 Constipation 07/26/2011 resolved Fracture of distal end of radius 06/15/2012 Irregular menstrual cycle 03/11/2017 Irregular periods/menstrual cycles 09/2015 NEGATIVE HISTORY OF 04/22/2014 Normal Color Vision Poor weight gain (0-17) 11/08/2011 Right ovarian without intrauterine 09/05/2020 Short stature 04/01/2013 April 01, 2013 - bone age is delayed Short stature (child) 04/01/2013 PAST SURGICAL HISTORY Procedure Laterality Date NONE ALLERGIES Patient has no known allergies. MEDICATIONS etonogestrel (NEXPLANON) 68 mg impl subdermal implant ONCE FAMILY HISTORY Problem Relation Age of Onset Hypertension Mother Maternal side - HTN other (Endometrosis) Mother Emphysema Maternal Grandfather Heart Maternal Grandfather other (lung cancer) Maternal Grandfather Hypertension Maternal Grandmother Heart Maternal Grandmother other (Bi-Polar) Maternal Grandmother Asthma Father Paternal side - Asthma Hypertension Father Paternal side - HTN Arthritis Paternal Grandmother Asthma Paternal Grandmother Alcohol/Drug Paternal Grandfather No Known Problems Sister Allergies Brother Asthma Brother Allergies Brother other (ADHD) Brother Social History Tobacco Use Smoking status: Never Passive exposure: Yes Smokeless tobacco: Never Tobacco comments: Both parents inside and outside Substance Use Topics Alcohol use: No Drug use: No DATA REVIEWED: Most recent labs ASSESSMENT/PLAN: 1. Acute otitis media, left - ICD9: 382.9, ICD10: H66.92 (primary diagnosis) - Will begin treatment with as per antibiotic as written, see orders - Supportive care with plenty of fluids, rest, and analgesia prn. - AMOXICILLIN 875 MG TABLET 2. Sore throat - ICD9: 462, ICD10: J02.9 - suspect viral - Rapid Strep negative in the office today - Discussed supportive care treatment with fluids, rest and analgesia. - STREP A MOLECULAR (POC) - negative Prescription instructions reviewed with patient. Potential red flag symptoms discussed with the patient. Reviewed appropriate action plan to take if red flag symptoms occur. Patient agreeable to treatment plan. Unique Leon Supervising provider was present and guided the care of the patient for the entire session on this date. All documentation was reviewed and agreed upon. Naina Nichols APRN.CNP documented in this encounterCity Hospital02-19-2024 History of Present illness Narrative* May Delaney APRN.CNP - 06/26/2023 4:18 PM EST SUBJECTIVE: Nan Meyers is a 23 year old female. Who presents today with cough headache sore throat and +n for the last 2 days, she has been exposed to COvid. She has not had a fever. She has taken motrin at home and it has helped with the headache. She would like viral testing today HPI PAST MEDICAL HISTORY Diagnosis Date ADD (attention deficit disorder with hyperactivity) Anxiety 10/05/2014 Constipation 07/26/2011 resolved Fracture of distal end of radius 06/15/2012 Irregular menstrual cycle 03/11/2017 Irregular periods/menstrual cycles 09/2015 NEGATIVE HISTORY OF 04/22/2014 Normal Color Vision Poor weight gain (0-17) 11/08/2011 Right ovarian without intrauterine 09/05/2020 Short stature 04/01/2013 April 01, 2013 - bone age is delayed Short stature (child) 04/01/2013 FAMILY HISTORY Problem Relation Age of Onset Hypertension Mother Maternal side - HTN other (Endometrosis) Mother Emphysema Maternal Grandfather Heart Maternal Grandfather other (lung cancer) Maternal Grandfather Hypertension Maternal Grandmother Heart Maternal Grandmother other (Bi-Polar) Maternal Grandmother Asthma Father Paternal side - Asthma Hypertension Father Paternal side - HTN Arthritis Paternal Grandmother Asthma Paternal Grandmother Alcohol/Drug Paternal Grandfather No Known Problems Sister Allergies Brother Asthma Brother Allergies Brother other (ADHD) Brother Social History Tobacco Use Smoking status: Never Passive exposure: Yes Smokeless tobacco: Never Tobacco comments: Both parents inside and outside Substance Use Topics Alcohol use: No Drug use: No ALLERGIES No Known Allergies Current Outpatient Medications Medication Sig Dispense Refill etonogestrel (NEXPLANON) 68 mg impl subdermal implant ONCE No current facility-administered medications for this visit. OBJECTIVE: BP 122/70 Pulse 102 Temp 36.7 C (98 F) Resp 18 Wt 64 kg (141 lb) LMP 05/04/2023 (Exact Date) SpO2 98% BMI 26.45 kg/m ROS: All systems reviewed and are otherwise negative Constitutional: Well developed, well nourished, A&O X3. ENT: Head is atraumatic, airway patent, mucosal membranes moist Neck: full ROM, no meningeal signs Cardiac: heart tones regular rate and rhythm Respiratory: lung CTA : no CVA tenderness MS: moves all extremities, no deformities noted Neuro: GCS 15 no focal deficits Skin: warm and dry with out rash, lesion or ecchymosis on exposed skin Psych: alert appropriate, speech clear Differential Diagnosis includes bacterial pneumonia, sinusitis, allergic rhinitis, and bronchitis, pneumothorax, COVID, Influenza, and RSV Diagnostic testing: COVID, Influenza A, Influenza B and RSV testing performed and results will be complete in the next 24-72 hours. The patient will be notified of the results in My Chart. MDM: Patient presented to the [facility] for viral testing. Nan Meyers has symptoms suspicious for likely viral upper respiratory infection. At this time I do not suspect a serious underlying cardiopulmonary process. Patient is nontoxic appearing. Currently they are not in need of emergent medical intervention. Vital signs were evaluated and found to be within normal limits. We discussed the COVID, Influenza and RSV results will be back in My Chart in the next 1-2 days. In accordance with the CDC guidelines, Nan Meyers was instructed to quarantine, if indicated, based on symptoms and exposure. We have discussed over the counter medications to use for their symptoms. They may take Motrin and Tylenol for pain, body aches and fever. They will also increase fluids for adequate hydration. She has requested a work note and this was given. They will follow-up with their family doctor in the next 2-3 days. If symptoms worsen they will go straight to the emergency department for further evaluation and treatment. The patient and/or familymembers have voiced understanding of the plan of care and are in agreement. ASSESSMENT/PLAN: 1. Exposure to SARS-associated coronavirus - ICD9: V01.82, ICD10: Z20.828 - COVID & INFLUENZA A/B & RSV NAAT, ROUTINE May Delaney APRN.[employer] MAKER documented in this encounterCity [facility]12-14-[facility]23 History of Present illness Narrative* Kj Amaya MD - 04/20/2023 12:44 PM EST Patient presents with: Right Hip Pain: X4 days HPI: Right hip pain: Duration: 4 days. Location: right hip Character: aching and throbbing Radiation: down the lateral and anterior leg to the knee Aggravating: extended standing and walking Relieving: not improved with sitting or lying, does not bother her at night Pain relievers: none Associated: hit the left hip on her stove a few days before the right hip started hurting Pertinent negatives: Denies numbness, swelling, bruising, redness MEDICATIONS: etonogestrel (NEXPLANON) 68 mg impl subdermal implant ONCE ALLERGIES: ALLERGIES No Known Allergies VITALS: BP 137/73 Pulse 83 Temp 36.8 C (98.2 F) Resp 18 Wt 62.1 kg (137 lb) LMP 10/18/2022 [id number]% BMI 25.70 kg/m PHYSICAL EXAM: GEN: pleasant, no acute distress, alert NECK: supple, HEART: regular rate, regular rhythm, no murmurs LUNGS: clear to auscultation, no wheezes or crackles, no increased WOB BACK: No midline or paraspinal tenderness. Straight leg test negative. EXT: no clubbing, no cyanosis, no edema HIP: right. No pain with hip flexion, internal rotation, or external rotation. Nontender over the greater trochanter. Normal gait. ASSESSMENT/PLAN: 1. Acute hip pain, right - ICD9: 719.45, ICD10: M25.551 Unclear source of pain. Normal physical exam. - IBUPROFEN 400 MG TABLET 3 times a day for 1 week. Off work today. Discussed xray. She will follow up if not improving. Kj Amaya MD documented in this encounterCity [facility]11-22-2023 History of Present illness Narrative* Marisa William APRN.CR[employer] MAKER - 03/29/2023 7:03 AM EST Chief Complaint Patient presents with: Physical HPI Nan Meyers is a 23 year old female who presents here today for Above Complaints. Nan is establishing care with our PCP team today from pediatrics. Concerns today.. Routine physical for new job. 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 Eats healthy overall and stays active daily. BMI is healthy. No concerns or complaints. No current known chronic conditions or routine medication regimen. Willing to have routine lab work done. HM -- Due for routine PAP and STD testing due to age-- pt is established with OBGYN. Has nexplanon placedin arm by OBGYN. Past medical history, appointments, medications, allergies reviewed. Previous Medical History PAST MEDICAL HISTORY Diagnosis Date ADD (attention deficit disorder with hyperactivity) Anxiety 10/05/2014 Constipation 07/26/2011 resolved Fracture of distal end of radius 06/15/2012 Irregular menstrual cycle 03/11/2017 Irregular periods/menstrual cycles 09/2015 NEGATIVE HISTORY OF 04/22/2014 Normal Color Vision Poor weight gain (0-17) 11/08/2011 Right ovarian without intrauterine 09/05/2020 Short stature 04/01/2013 April 01, 2013 - bone age is delayed Short stature (child) 04/01/2013 Previous Surgical History PAST SURGICAL HISTORY Procedure Laterality Date NONE Family History FAMILY HISTORY Problem Relation Age of Onset Hypertension Mother Maternal side - HTN other (Endometrosis) Mother Emphysema Maternal Grandfather Heart Maternal Grandfather other (lung cancer) Maternal Grandfather Hypertension Maternal Grandmother Heart Maternal Grandmother other (Bi-Polar) Maternal Grandmother Asthma Father Paternal side - Asthma Hypertension Father Paternal side - HTN Arthritis Paternal Grandmother Asthma Paternal Grandmother Alcohol/Drug Paternal Grandfather No Known Problems Sister Allergies Brother Asthma Brother Allergies Brother other (ADHD) Brother Patient Allergies ALLERGIES No Known Allergies Current Medications Current Outpatient Medications on File Prior to Visit Medication Sig etonogestrel (NEXPLANON) 68 mg impl subdermal implant ONCE ondansetron orally disintegrating (ZOFRAN ODT) 4 mg disintegrating tablet Take 1 tablet by mouth every 8 hours as needed. No current facility-administered medications on file prior to visit. Social History Social History Tobacco Use Smoking status: Never Passive exposure: Yes Smokeless tobacco: Never Tobacco comments: Both parents inside and outside Substance Use Topics Alcohol use: No Drug use: No REVIEW OF SYSTEMS: as above Reviewed relevant PMHx, PSHx, Social Hx, current medications and allergies. Review of Symptoms REVIEW OF SYSTEMS See HPI. EXAM: BP 98/62 (BP Site: Right Arm, BP Position: Sitting, BP Cuff Size: Regular Adult) Pulse 69 Resp 12 Ht 155.5 cm (5' 1.22) Wt 61.8 kg (136 lb 3.2 oz) LMP 10/18/2022 SpO2 98% BMI 25.55 kg/m General Appearance: Well appearing, alert, in no acute distress, well-hydrated, well nourished.. Skin: Skin color, texture, turgor normal, no suspicious rashes or lesions. Head: Normocephalic, no masses, lesions, tenderness or abnormalities. Lungs: Lungs clear to auscultation. No wheezing, rhonchi, rales.. Heart: RRR without murmur, gallop, or rubs. No ectopy. Abdomen: Normal abdominal exam, Abdomen soft, non-tender. Bowel sounds normal. No masses, organomegaly. Extremities: No deformities, edema, skin discoloration, clubbing or cyanosis. Good capillary refill. . Neurologic: Gait normal. Reflexes normal and symmetric. Sensation grossly intact.. Health Maintenance List Covid-19 Vaccine(1) Never done Meningococcal B Vaccine: Consider Based On Risk(1 of 2 - Patient Seeks Protection) Never done GC (Gonorrhea) Screening (18-24) Never done Hepatitis C Screening Never done HIV Screening Never done Chlamydia Screening (18-24) Never done Depression Assessment Never done Influenza Vaccine(1) due on 01/06/2023 Pap Testing Never done DTaP,Tdap,Td Vaccine(7 - Td or Tdap) due on 04/22/2024 Hepatitis B Vaccine Completed HPV Vaccine Completed ASSESSMENT/PLAN: 1. Wellness examination - ICD9: V70.0, ICD10: Z00.00 - Counseled on healthy diet and regular exercise - Recommend vitamin containing 0.4 mg of folic acid - Calcium intake with supplements or by diet of 1000 mg/day for under 50, 1200- 1500 mg/day for 50+ - Depression screening tool completed and reviewed with patient. Based on score and interview, patient is not at risk for depression and recommended no further intervention at this time. - Follow up for annual exam in one year - COMP METABOLIC PANEL - CBC + DIFF - LIPID PANEL BASIC - DEPRESSION SCREENING/ASSESSMENT RTO annually and as needed. Prescription instructions reviewed with patient as applicable. Potential red flag symptoms discussed with the patient. Reviewed appropriate action plan to take if red flag symptoms occur. Patient agreeable to treatment plan. Marisa Pro APRN.CNP [address] [place] [address] documented in this encounterCity Hospital10-24-2023 History of Present illness Narrative* Janie Holder PA-C - 02/28/2023 12:35 PM EDT This note was created using Pixplitriter. Deonte Meyers is a 23 year old female. HPI Patient presents with a chief complaint of nausea over the past day. States yesterday she felt likeshe did throw up at work so she had left. She called off today as well. Denies any abdominal pain. No diarrhea. Denies runny nose, cough, sore throat. 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 She denies any dysuria, frequency, urgency. She did have a Nexplanon put in about a week ago but has had this before and not had any nausea issues with it. Review of Systems HENT: Negative. Respiratory: Negative. Cardiovascular: Negative. Gastrointestinal: Positive for nausea. Negative for abdominal pain, diarrhea and vomiting. Genitourinary: Negative. Musculoskeletal: Negative. Skin: Negative. Neurological: Negative. All other systems reviewed and are negative. PAST MEDICAL HISTORY Diagnosis Date ADD (attention deficit disorder with hyperactivity) Anxiety 10/05/2014 Constipation 07/26/2011 resolved Fracture of distal end of radius 06/15/2012 Irregular menstrual cycle 03/11/2017 Irregular periods/menstrual cycles 09/2015 NEGATIVE HISTORY OF 04/22/2014 Normal Color Vision Poor weight gain (0-17) 11/08/2011 Right ovarian without intrauterine 09/05/2020 Short stature 04/01/2013 April 01, 2013 - bone age is delayed Short stature (child) 04/01/2013 Current Outpatient Medications Medication Sig Dispense Refill etonogestrel (NEXPLANON) 68 mg impl subdermal implant ONCE ondansetron orally disintegrating (ZOFRAN ODT) 4 mg disintegrating tablet Take 1 tablet by mouth every 8 hours as needed. 12 tablet 0 No current facility-administered medications for this visit. PAST SURGICAL HISTORY Procedure Laterality Date NONE FAMILY HISTORY Problem Relation Age of Onset Hypertension Mother Maternal side - HTN other (Endometrosis) Mother Emphysema Maternal Grandfather Heart Maternal Grandfather other (lung cancer) Maternal Grandfather Hypertension Maternal Grandmother Heart Maternal Grandmother other (Bi-Polar) Maternal Grandmother Asthma Father Paternal side - Asthma Hypertension Father Paternal side - HTN Arthritis Paternal Grandmother Asthma Paternal Grandmother Alcohol/Drug Paternal Grandfather No Known Problems Sister Allergies Brother Asthma Brother Allergies Brother other (ADHD) Brother Social History Tobacco Use Smoking status: Never Passive exposure: Yes Smokeless tobacco: Never Tobacco comments: Both parents inside and outside Substance Use Topics Alcohol use: No Drug use: No Objective BP 122/68 Pulse 96 Temp 36.7 C (98.1 F) Resp 16 Wt 60.3 kg (133 lb) LMP 10/18/2022 [id number]% BMI 25.77 kg/m Physical Exam Vitals reviewed. Constitutional: Appearance: Normal appearance. HENT: Head: Normocephalic and atraumatic. Right Ear: Tympanic membrane, ear canal and external ear normal. Left Ear: Tympanic membrane, ear canal and external ear normal. Nose: Nose normal. Mouth/Throat: Mouth: Mucous membranes are moist. Pharynx: Oropharynx is clear. Cardiovascular: Rate and Rhythm: Normal rate and regular rhythm. Heart sounds: Normal heart sounds. Pulmonary: Effort: Pulmonary effort is normal. Breath sounds: Normal breath sounds. Abdominal: General: Abdomen is flat. Palpations: Abdomen is soft. Tenderness: There is no abdominal tenderness. There is no right CVA tenderness, left CVA tendernessor guarding. Musculoskeletal: Cervical back: Neck supple. Lymphadenopathy: Cervical: No cervical adenopathy. Skin: General: Skin is warm and dry. Findings: No rash. Neurological: General: No focal deficit present. Mental Status: She is alert and oriented to person, place, and time. Assessment and Plan ASSESSMENT/PLAN: 1. Nausea - ICD9: 787.02, ICD10: R11.0 Abdominal exam benign. Likely viral illness. Has been able to drink fluids. Not actively vomiting. We will treat with Zofran. Follow-up with PCP if not improving. Given work note. COVID and flu test pending. - ONDANSETRON 4 MG DISINTEGRATING TABLET - COVID & INFLUENZA A/B NAAT, ROUTINE Janie Holder PA-C documented in this encounterCity Hospital09-19-2023 History of Present illness Narrative* Lizette Kinney APRN.[employer] MAKER - 01/24/2023 5:20 PM EDT This note was created using Pixplitriter. Deonte Meyers is a 23 year old female. 23 year old female with PMH ADHD, anxiety presents for complaints of illness. Acute onset 0400 Monday morning +N/V/D +stomach cramps. States that she is correlating it with eating food from [employer] Monday night. Endorses that today she has complete resolvement of symptoms. Denies fever or chills here Denies N/V/D today Endorses she is here for a work note. States that her work threatened termination without medical excuse. The history is provided by the patient. No foreign language teacher was used. Vomiting This is a new problem. The current episode started more than 2 days ago. The problem occurs 2 to 4 times per day. The problem has been resolved. The emesis has an appearance of stomach contents. There has been no fever. Associated symptoms include diarrhea. Pertinent negatives include no abdominal pain, no arthralgias, no chills, no cough, no fever, no headaches, no myalgias, no sweats and no URI. Risk factors include suspect food intake. PAST MEDICAL HISTORY Diagnosis Date ADD (attention deficit disorder with hyperactivity) Anxiety 10/05/2014 Constipation 07/26/2011 resolved Fracture of distal end of radius 06/15/2012 Irregular menstrual cycle 03/11/2017 Irregular periods/menstrual cycles 09/2015 NEGATIVE HISTORY OF 04/22/2014 Normal Color Vision Poor weight gain (0-17) 11/08/2011 Right ovarian without intrauterine 09/05/2020 Short stature 04/01/2013 April 01, 2013 - bone age is delayed Short stature (child) 04/01/2013 PAST SURGICAL HISTORY Procedure Laterality Date NONE ALLERGIES Patient has no known allergies. MEDICATIONS No prescriptions on file. FAMILY HISTORY Problem Relation Age of Onset Hypertension Mother Maternal side - HTN other (Endometrosis) Mother Emphysema Maternal Grandfather Heart Maternal Grandfather other (lung cancer) Maternal Grandfather Hypertension Maternal Grandmother Heart Maternal Grandmother other (Bi-Polar) Maternal Grandmother Asthma Father Paternal side - Asthma Hypertension Father Paternal side - HTN Arthritis Paternal Grandmother Asthma Paternal Grandmother Alcohol/Drug Paternal Grandfather No Known Problems Sister Allergies Brother Asthma Brother Allergies Brother other (ADHD) Brother Social History Tobacco Use Smoking status: Never Passive exposure: Yes Smokeless tobacco: Never Tobacco comments: Both parents inside and outside Substance Use Topics Alcohol use: No Drug use: No Review of Systems Constitutional: Negative for chills and fever. Eyes: Negative for discharge and itching. Respiratory: Negative for apnea, cough, choking and chest tightness. Gastrointestinal: Positive for diarrhea, nausea and vomiting. Negative for abdominal pain. Musculoskeletal: Negative for arthralgias and myalgias. Skin: Negative for color change, pallor, rash and wound. Allergic/Immunologic: Negative for environmental allergies, food allergies and immunocompromised state. Neurological: Negative for dizziness, facial asymmetry and headaches. Hematological: Negative for adenopathy. Does not bruise/bleed easily. Psychiatric/Behavioral: Negative for agitation and behavioral problems. Objective BP 110/78 Pulse 79 Temp 36.6 C (97.8 F) (Tympanic) Resp 18 Wt 60.1 kg (132 lb 9.6 oz) LMP10/18/2022 SpO2 99% BMI 25.69 kg/m Physical Exam Vitals and nursing note reviewed. Constitutional: General: She is not in acute distress. Appearance: Normal appearance. She is normal weight. She is not ill-appearing, toxic-appearing or diaphoretic. HENT: Head: Normocephalic and atraumatic. Right Ear: Ear canal and external ear normal. Left Ear: Ear canal and external ear normal. Nose: Nose normal. No congestion or rhinorrhea. Mouth/Throat: Mouth: Mucous membranes are moist. Pharynx: No oropharyngeal exudate or posterior oropharyngeal erythema. Eyes: General: Right eye: No discharge. Left eye: No discharge. Extraocular Movements: Extraocular movements intact. Conjunctiva/sclera: Conjunctivae normal. Pupils: Pupils are equal, round, and reactive to light. Cardiovascular: Rate and Rhythm: Normal rate and regular rhythm. Pulses: Normal pulses. Heart sounds: Normal heart sounds. No murmur heard. No friction rub. Pulmonary: Effort: Pulmonary effort is normal. No respiratory distress. Breath sounds: Normal breath sounds. No stridor. No wheezing, rhonchi or rales. Chest: Chest wall: No tenderness. Abdominal: General: Abdomen is flat. There is no distension. Palpations: Abdomen is soft. There is no mass. Tenderness: There is no abdominal tenderness. There is no right CVA tenderness, left CVA tenderness, guarding or rebound. Hernia: No hernia is present. Musculoskeletal: General: No swelling, tenderness, deformity or signs of injury. Normal range of motion. Cervical back: Normal range of motion and neck supple. No rigidity. Right lower leg: No edema. Left lower leg: No edema. Lymphadenopathy: Cervical: No cervical adenopathy. Skin: General: Skin is warm and dry. Capillary Refill: Capillary refill takes less than 2 seconds. Coloration: Skin is not jaundiced or pale. Findings: No bruising, erythema, lesion or rash. Neurological: General: No focal deficit present. Mental Status: She is alert and oriented to person, place, and time. Cranial Nerves: No cranial nerve deficit. Sensory: No sensory deficit. Motor: No weakness. Coordination: Coordination normal. Gait: Gait normal. Psychiatric: Mood and Affect: Mood normal. Behavior: Behavior normal. Thought Content: Thought content normal. Judgment: Judgment normal. Assessment and Plan ASSESSMENT/PLAN: 1. Nausea vomiting and diarrhea - ICD9: 787.91, 787.01, ICD10: R11.2, R19.7 Acute onset Monday @ 0400 today. Correlates it with suspicious food intake. Sx have resolved. States feeling better today Requesting work note Provided Lizette Kinney APRN.[employer] MAKER documented in this encounterCity Hospital09-14-2023 History of Present illness Narrative* Kj Amaya MD - 01/19/2023 2:41 PM EDT Patient presents with: Pain: chest pain x 3-4 days, off and on HPI: chest pain: Duration: 3-4 days Location: right mid chest Character: sharp, intermittent, lasts 1 minute then resolves Radiation: No. 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 She is sexually active without control use. She does not believe she is currently because she just finished having her menstrual cycle. PAST MEDICAL HISTORY Diagnosis Date ADD (attention deficit disorder with hyperactivity) Anxiety 10/05/2014 Constipation 07/26/2011 resolved Fracture of distal end of radius 06/15/2012 Irregular menstrual cycle 03/11/2017 Irregular periods/menstrual cycles 09/2015 NEGATIVE HISTORY OF 04/22/2014 Normal Color Vision Poor weight gain (0-17) 11/08/2011 Right ovarian without intrauterine 09/05/2020 Short stature 04/01/2013 April 01, 2013 - bone age is delayed Short stature (child) 04/01/2013 MEDICATIONS: No prescriptions on file. ALLERGIES: ALLERGIES No Known Allergies VITALS: BP 124/60 Pulse 104 Temp 36.6 C (97.8 F) Resp 16 Wt 59 kg (130 lb) LMP 10/18/2022 SpO2 99% BMI 25.19 kg/m PHYSICAL EXAM: GEN: pleasant, no acute distress, alert HEENT: PERRL, EOMI, MMM NECK: supple, no lymphadenopathy, no thyromegaly HEART: regular rate, regular rhythm, no murmurs LUNGS: clear to auscultation, no wheezes or crackles, no increased WOB CHEST: pinpoints tender spot at right 4th or 5th costchondral junction EXT: no clubbing, no cyanosis, no edema ASSESSMENT/PLAN: 1. Costochondritis - ICD9: 733.6, ICD10: M94.0 Low suspicion for cardiopulmonary source of pain. Treat costochondritis with as needed ibuprofen. She declines d-dimer to rule out PE. Kj Amaya MD documented in this encounterCity Hospital06-20-2023 History of Present illness Narrative* Janie Holder PA-C - 10/25/2022 2:49 PM EDT This note was created using [employer]. Subjective Nan Meyers is a 22 year old female. HPI Presents with right ear pain and headache over the past 3 days. The headache has been off and on. It does improve with ibuprofen but then has come back. Is on her forehead area. She states it is an ache. Rates it about a 5 right now. No blurred or double vision. No weakness numbness or tingling. Under clap onset. Not the worst headache of her life. She did have a couple seconds of dizziness a couple of days ago but none since then. She denies history of chronic migraines. She states her last menstrual cycle was October 18 and normal for her. She has the Nexplanon. No fever. Denies sinus pain or pressure. No congestion or cough. She did have sinusitis about a month ago for the patient. Patient also does drink 3-4 bottles of tea a day. She does try to drink water but maybe not enough. Denies drainage out of her right ear. Her right ear pain has been constant. Painful to touch as well. No recent swimming. No drainage out of the ear. Review of Systems Constitutional: Negative. HENT: Positive for ear pain. Negative for congestion, postnasal drip, rhinorrhea and sore throat. Respiratory: Negative. Cardiovascular: Negative. Gastrointestinal: Negative. Genitourinary: Negative. Musculoskeletal: Negative. Neurological: Positive for headaches. All other systems reviewed and are negative. PAST MEDICAL HISTORY Diagnosis Date ADD (attention deficit disorder with hyperactivity) Anxiety 10/05/2014 Constipation 07/26/2011 resolved Fracture of distal end of radius 06/15/2012 Irregular menstrual cycle 03/11/2017 Irregular periods/menstrual cycles 09/2015 NEGATIVE HISTORY OF 04/22/2014 Normal Color Vision Poor weight gain (0-17) 11/08/2011 Right ovarian without intrauterine 09/05/2020 Short stature 04/01/2013 April 01, 2013 - bone age is delayed Short stature (child) 04/01/2013 Current Outpatient Medications Medication Sig Dispense Refill fluticasone (FLONASE) 50 mcg/actuation nasal spray Use 2 Sprays in each nostril once daily. Rinse mouth after use. 1 Each 0 cetirizine (ZYRTEC) 10 mg tablet Take 1 tablet by mouth once daily for 7 days. 7 tablet 0 lisdexamfetamine (VYVANSE) 10 mg capsule Take 1 capsule by mouth once daily for 30 days. (Patient not taking: Reported on 09/12/2022) 30 capsule 0 etonogestrel (NEXPLANON) 68 mg impl subdermal implant 68 mg by SUBDERMAL route. (Patient not taking: Reported on 09/12/2022) No current facility-administered medications for this visit. PAST SURGICAL HISTORY Procedure Laterality Date NONE FAMILY HISTORY Problem Relation Age of Onset Hypertension Mother Maternal side - HTN other (Endometrosis) Mother Emphysema Maternal Grandfather Heart Maternal Grandfather other (lung cancer) Maternal Grandfather Hypertension Maternal Grandmother Heart Maternal Grandmother other (Bi-Polar) Maternal Grandmother Asthma Father Paternal side - Asthma Hypertension Father Paternal side - HTN Arthritis Paternal Grandmother Asthma Paternal Grandmother Alcohol/Drug Paternal Grandfather No Known Problems Sister Allergies Brother Asthma Brother Allergies Brother other (ADHD) Brother Social History Tobacco Use Smoking status: Never Passive exposure: Yes Smokeless tobacco: Never Tobacco comments: Both parents inside and outside Substance Use Topics Alcohol use: No Drug use: No Objective BP 128/74 Pulse 82 Temp 36.7 C (98.1 F) (Tympanic) Resp 16 Wt 55.9 kg (123 lb 3.2 oz) [facility]10/18/2022 SpO2 97% BMI 23.87 kg/m Physical Exam Vitals reviewed. Constitutional: Appearance: Normal appearance. HENT: Head: Normocephalic and atraumatic. Right Ear: Ear canal and external ear normal. Left Ear: Tympanic membrane, ear canal and external ear normal. Ears: Comments: Serous right middle ear effusion Nose: Nose normal. Mouth/Throat: Mouth: Mucous membranes are moist. Pharynx: Oropharynx is clear. Cardiovascular: Rate and Rhythm: Normal rate and regular rhythm. Heart sounds: Normal heart sounds. Pulmonary: Effort: Pulmonary effort is normal. Breath sounds: Normal breath sounds. Skin: General: Skin is warm and dry. Neurological: General: No focal deficit present. Mental Status: She is alert. Assessment and Plan ASSESSMENT/PLAN: 1. Fluid level behind tympanic membrane of right ear - ICD9: 381.4, ICD10: H65.91 (primary diagnosis) -Discussed trying Flonase and Zyrtec. Follow-up with PCP if not improving. 2. Headache, unspecified headache type - ICD9: 784.0, ICD10: R51.9 No red flag symptoms. Discussed using ibuprofen and Tylenol. Drinking more water. Follow-up with PCP if not improving. Discussed symptoms that would necessitate ER visit. Patient and mom agreeable with plan. Janie Holder PA-C documented in this encounterCity [facility]06-20-[facility]23 Instructions* Patient Instructions* Janie Holder PA-C - 10/25/2022 2:20 PM EDT May take 600mg of ibuprofen every 6-8 hours and tylenol 500-1000mg every 4-6 hours(max dose 4000 mga day) Trial flonase and zyrtec for fluid in ear. If not better follow up with pcp. documented in this encounterCity [facility]05-08-[facility]23 History of Present illness Narrative* Lizette Kinney APRN.[employer] MAKER - 09/12/2022 3:30 PM EDT This note was created using Cegal. Subjective Nan Meyers is a 22 year old female. 22 year old female with PMH ADHD and anxiety presents for complaints of illness. Acute onset 5 days ago +stuffy nose +sore throat States voice has progressively worsened. +cough Denies SOB or dyspnea Denies abdominal pain Denies N/V/D Has used Ibuprofen and cough drops. Works at [employer]. States that she is requiring documentation for her job as they are threatening to fire her. Denies inability to handle secretions. Denies muffled voice. The history is provided by the patient. No foreign language teacher was used. Sore Throat This is a new problem. The current episode started in the past 7 days. The problem has been unchanged. There has been no fever. The pain is at a severity of 4/10. The pain is mild. Associated symptoms include congestion, coughing and headaches. Pertinent negatives include no abdominal pain, diarrhea, drooling, ear discharge, ear pain, hoarse voice, plugged ear sensation, neck pain, shortness of breath, stridor, swollen glands, trouble swallowing or vomiting. She has had no exposure to strep or mono. She has tried nothing for the symptoms. The treatment provided no relief. PAST MEDICAL HISTORY Diagnosis Date ADD (attention deficit disorder with hyperactivity) Anxiety 10/05/2014 Constipation 07/26/2011 resolved Fracture of distal end of radius 06/15/2012 Irregular menstrual cycle 03/11/2017 Irregular periods/menstrual cycles 09/2015 NEGATIVE HISTORY OF 04/22/2014 Normal Color Vision Poor weight gain (0-17) 11/08/2011 Right ovarian without intrauterine 09/05/2020 Short stature 04/01/2013 April 01, 2013 - bone age is delayed Short stature (child) 04/01/2013 PAST SURGICAL HISTORY Procedure Laterality Date NONE ALLERGIES Patient has no known allergies. MEDICATIONS lisdexamfetamine (VYVANSE) 10 mg capsule Take 1 capsule by mouth once daily for 30 days. (Patient not taking: Reported on 09/12/2022) etonogestrel (NEXPLANON) 68 mg impl subdermal implant 68 mg by SUBDERMAL route. (Patient not taking: Reported on 09/12/2022) FAMILY HISTORY Problem Relation Age of Onset Hypertension Mother Maternal side - HTN other (Endometrosis) Mother Emphysema Maternal Grandfather Heart Maternal Grandfather other (lung cancer) Maternal Grandfather Hypertension Maternal Grandmother Heart Maternal Grandmother other (Bi-Polar) Maternal Grandmother Asthma Father Paternal side - Asthma Hypertension Father Paternal side - HTN Arthritis Paternal Grandmother Asthma Paternal Grandmother Alcohol/Drug Paternal Grandfather No Known Problems Sister Allergies Brother Asthma Brother Allergies Brother other (ADHD) Brother Social History Tobacco Use Smoking status: Never Passive exposure: Yes Smokeless tobacco: Never Tobacco comments: Both parents inside and outside Substance Use Topics Alcohol use: No Drug use: No Review of Systems Constitutional: Negative for activity change, appetite change, diaphoresis, fatigue and fever. HENT: Positive for congestion and sore throat. Negative for drooling, ear discharge, ear pain, hoarse voice and trouble swallowing. Eyes: Negative for pain, discharge, redness and itching. Respiratory: Positive for cough. Negative for shortness of breath and stridor. Cardiovascular: Negative for chest pain, palpitations and leg swelling. Gastrointestinal: Negative for abdominal pain, diarrhea and vomiting. Musculoskeletal: Negative for neck pain. Skin: Negative for color change, pallor, rash and wound. Allergic/Immunologic: Negative for environmental allergies, food allergies and immunocompromised state. Neurological: Positive for headaches. Negative for dizziness and facial asymmetry. Hematological: Negative for adenopathy. Does not bruise/bleed easily. Psychiatric/Behavioral: Negative for agitation and behavioral problems. Objective BP 102/60 Pulse 102 Temp 36.8 C (98.2 F) Resp 16 Wt 54 kg (119 lb) LMP 10/09/2021 SpO2 99% BMI 23.06 kg/m Physical Exam Vitals and nursing note reviewed. Constitutional: General: She is not in acute distress. Appearance: Normal appearance. She is normal weight. She is not ill-appearing, toxic-appearing or diaphoretic. HENT: Head: Normocephalic and atraumatic. Right Ear: Ear canal and external ear normal. Left Ear: Ear canal and external ear normal. Nose: Nose normal. No congestion or rhinorrhea. Mouth/Throat: Mouth: Mucous membranes are moist. Pharynx: Posterior oropharyngeal erythema present. No oropharyngeal exudate. Eyes: General: Right eye: No discharge. Left eye: No discharge. Extraocular Movements: Extraocular movements intact. Conjunctiva/sclera: Conjunctivae normal. Pupils: Pupils are equal, round, and reactive to light. Cardiovascular: Rate and Rhythm: Normal rate and regular rhythm. Pulses: Normal pulses. Heart sounds: Normal heart sounds. No murmur heard. No friction rub. Pulmonary: Effort: Pulmonary effort is normal. No respiratory distress. Breath sounds: Normal breath sounds. No stridor. No wheezing, rhonchi or rales. Chest: Chest wall: No tenderness. Abdominal: General: Abdomen is flat. There is no distension. Palpations: Abdomen is soft. There is no mass. Tenderness: There is no abdominal tenderness. There is no right CVA tenderness, left CVA tenderness, guarding or rebound. Hernia: No hernia is present. Musculoskeletal: General: No swelling, tenderness, deformity or signs of injury. Normal range of motion. Cervical back: Normal range of motion and neck supple. No rigidity. Right lower leg: No edema. Left lower leg: No edema. Lymphadenopathy: Cervical: No cervical adenopathy. Skin: General: Skin is warm and dry. Capillary Refill: Capillary refill takes less than 2 seconds. Coloration: Skin is not jaundiced or pale. Findings: No bruising, erythema, lesion or rash. Neurological: General: No focal deficit present. Mental Status: She is alert and oriented to person, place, and time. Cranial Nerves: No cranial nerve deficit. Sensory: No sensory deficit. Motor: No weakness. Coordination: Coordination normal. Gait: Gait normal. Psychiatric: Mood and Affect: Mood normal. Behavior: Behavior normal. Thought Content: Thought content normal. Judgment: Judgment normal. Assessment and Plan ASSESSMENT/PLAN: 1. URI, acute - ICD9: 465.9, ICD10: J06.9 (primary diagnosis) X 5 days - Discussed viral etiology and rationale for treatment. - Alere Strep Test NEGATIVE, no culture pending - Symptomatic treatment with prn analgesia - Supportive care with fluids and rest - The patient may also use OTC cough and cold meds as needed, warm salt water gargles, throat lozenges and/or OTC throat spray as needed, and nasal saline gtts and suction prn. - Follow up in 3-5 days if symptoms persist or sooner if worsening of symptoms - STREP A MOLECULAR (POC) - CAREGIVER COVID + FLU A/B, ROUTINE 2. Pharyngitis, unspecified etiology - ICD9: 462, ICD10: J02.9 - suspect viral - Alere Strep Test NEGATIVE, no culture pending - antibiotic as written - Discussed supportive care treatment with fluids, rest and analgesia. - The patient may also use OTC cough and cold meds as needed, warm salt water gargles, throat lozenges and/or OTC throat spray as needed, and nasal saline gtts and suction prn. - Contagious dz precautions discussed- including considered contagious until on antibiotics for 24 hours - The patient should follow up in 3-5 days if symptoms persist or worsen - Call back if drooling, increased temperature, symptoms of dehydration and/or still sick in one week Lizette Kinney APRN.LACEY documented in this encounterCity Hospital02-23-2023 Instructions* Patient Instructions* Tessa Gallegos - 06/30/2022 2:23 PM EST How to Manage Common Symptoms Associated with COVID for Adults Fever- Fever is a temperature over 100.4 F and can occur when the body is fighting an infection. Tohelp treat a fever: Drink plenty of fluids and stay well hydrated. Eat small amounts of easy to digest food. Rest. Your body needs rest to recover, but getting up and moving around the house frequently is a good idea. You should try to continue doing your normal daily activities (bathing, toileting, grooming, cooking), though you will probably feel tired, and need to rest often. Avoid any heavy activity or exercise, as this will increase your body temperature. Dress in light clothing and stay covered in a light sheet. Keep the room temperature cool. Take a slightly warm (not cold or cool) bath, or apply damp washcloths to the forehead and wrists. Cough- Cough is a common symptom associated with COVID and can be bothersome. To help treat a cough: Stay well hydrated. Try warm water or tea with lemon and/or honey to help soothe the cough. Use a humidifier to add moisture to the air. Try a product with menthol, like a cough drop or a rub for your chest such as Vicks, which can helpreduce cough. Try cough drops. Avoid smoking and other strong odors or perfumes. Try breathing exercises to keep your lungs open and clear. Take a big deep breath through your noseand hold for 5 seconds before slowly releasing. Repeat frequently, while you are awake. Congestion- Runny nose or nasal congestion can occur with COVID. Treatment can help relieve symptoms: Try OTC nasal saline spray, or nasal saline rinse to relieve mucus congestion. Nasal strips can help keep nasal passages open, to increase airflow. Elevating your head with an extra pillow in bed can help reduce congestion. Using a humidifier can increase moisture in the air, and make breathing easier. Sore Throat- Another common symptom with COVID, can be managed at home by: Stay well hydrated. Gargle with salt water - mix teaspoon salt with 1 cup of warm water and gargle. This helps to loosen mucus in the back of the throat and may reduce discomfort. Try ice chips, popsicles or lozenges to soothe the throat. Nausea/Vomiting/Diarrhea- These are common symptoms, and staying hydrated is most important. If you are nauseous or vomiting, start with small sips of water every 10-15 minutes and increase astolerated. You can try sucking an ice cube too. If tolerating, you can try pedialyte or Gatorade, or flat sprite or duran-aron. Start slowly and increase as you are able to. Instead of meals, try smaller, more frequent snacks. Try eating bland foods like crackers, toast, rice, and applesauce. Avoid spicy, greasy or fried foods and dairy containing foods. Even if you aren't feeling hungry due to lack of smell or taste, it is important to try to take in some food when you are able. After drinking and eating, rest in an upright position for up to two hours as needed to help decrease nauseous feelings. Try closing your eyes, avoid moving and watching TV. Avoid strong odors that can make you feel more nauseated. When to seek emergency medical attention Look for emergency warning signs for COVID-19. If having any of these symptoms, seek emergency medical care immediately: Trouble breathing Persistent pain or pressure in the chest New confusion Inability to wake or stay awake Bluish lips or face *This list is not all possible symptoms. Please call your medical provider for any other symptoms that are severe or concerning to you. ASSESSMENT/PLAN: 1. Encounter for screening laboratory testing for COVID-19 virus - ICD9: V01.79, ICD10: Z20.822 - Discussed red flag symptoms and when to return - Discussed supportive care to use if symptoms return including lozenges, OTC decongestants and mucolytics. - CAREGIVER COVID + FLU A/B, ROUTINE Tessa Gallegos APRN-student documented in this encounterCity Hospital02-23-2023 History of Present illness Narrative* Debbi Arceo APRN.[employer] MAKER - 06/30/2022 2:09 PM EST This note was created using Cegal. Subjective Nan Meyers is a 22 year old female for chief complaint of headache, nausea and shortness of breath yesterday. She reports headache was 5/10, bandlike without visual symptoms. She took tylenol and pain reduced to a 2/10. Denies headache today. Reports shortness of breath after getting up fromthe couch and walking around her house yesterday. SOB resolved with rest. Reports nausea intermittently yesterday but no vomiting. Denies any of these symptoms today and reports wanting tested for COVID and Flu. Review of Systems Constitutional: Positive for fatigue. Negative for appetite change, chills, diaphoresis and fever. HENT: Negative for congestion, ear pain, rhinorrhea and sore throat. Respiratory: Positive for shortness of breath. Negative for cough and wheezing. Cardiovascular: Negative for chest pain. Gastrointestinal: Positive for nausea. Negative for abdominal pain, diarrhea and vomiting. Genitourinary: Negative for dysuria. Musculoskeletal: Negative for back pain. Skin: Negative for rash. Neurological: Positive for headaches (yesterday). PAST MEDICAL HISTORY Diagnosis Date ADD (attention deficit disorder with hyperactivity) Anxiety 10/05/2014 Constipation 07/26/2011 resolved Fracture of distal end of radius 06/15/2012 Irregular menstrual cycle 03/11/2017 Irregular periods/menstrual cycles 09/2015 NEGATIVE HISTORY OF 04/22/2014 Normal Color Vision Poor weight gain (0-17) 11/08/2011 Right ovarian without intrauterine 09/05/2020 Short stature 04/01/2013 April 01, 2013 - bone age is delayed Short stature (child) 04/01/2013 PAST SURGICAL HISTORY Procedure Laterality Date NONE ALLERGIES Patient has no known allergies. MEDICATIONS etonogestrel (NEXPLANON) 68 mg impl subdermal implant 68 mg by SUBDERMAL route. lisdexamfetamine (VYVANSE) 10 mg capsule Take 1 capsule by mouth once daily for 30 days. FAMILY HISTORY Problem Relation Age of Onset Hypertension Mother Maternal side - HTN other (Endometrosis) Mother Emphysema Maternal Grandfather Heart Maternal Grandfather other (lung cancer) Maternal Grandfather Hypertension Maternal Grandmother Heart Maternal Grandmother other (Bi-Polar) Maternal Grandmother Asthma Father Paternal side - Asthma Hypertension Father Paternal side - HTN Arthritis Paternal Grandmother Asthma Paternal Grandmother Alcohol/Drug Paternal Grandfather No Known Problems Sister Allergies Brother Asthma Brother Allergies Brother other (ADHD) Brother Social History Tobacco Use Smoking status: Never Passive exposure: Yes Smokeless tobacco: Never Tobacco comments: Both parents inside and outside Substance Use Topics Alcohol use: No Drug use: No Objective BP 98/64 Pulse 93 Temp 36.7 C (98.1 F) (Tympanic) Resp 18 Wt 53.4 kg (117 lb 12.8 oz) LMP10/09/2021 SpO2 98% BMI 22.83 kg/m Physical Exam Vitals reviewed. Constitutional: Appearance: Normal appearance. HENT: Head: Normocephalic and atraumatic. Right Ear: Tympanic membrane, ear canal and external ear normal. Left Ear: Tympanic membrane, ear canal and external ear normal. Nose: Nose normal. Mouth/Throat: Mouth: Mucous membranes are moist. Pharynx: No posterior oropharyngeal erythema. Eyes: General: Right eye: No discharge. Left eye: No discharge. Cardiovascular: Rate and Rhythm: Normal rate and regular rhythm. Heart sounds: Normal heart sounds. Pulmonary: Effort: Pulmonary effort is normal. Breath sounds: Normal breath sounds. Lymphadenopathy: Cervical: No cervical adenopathy. Skin: General: Skin is warm and dry. Capillary Refill: Capillary refill takes less than 2 seconds. Findings: No rash. Neurological: General: No focal deficit present. Mental Status: She is alert. Assessment and Plan ASSESSMENT/PLAN: 1. Encounter for screening laboratory testing for COVID-19 virus - ICD9: V01.79, ICD10: Z20.822 - Discussed red flag symptoms and when to return - Discussed supportive care to use if symptoms return including lozenges, OTC decongestants and mucolytics. - CAREGIVER COVID + FLU A/B, ROUTINE Tessa Gallegos APRN-student - Follow-up with your PCP in 3-5 days if symptoms have not improved or sooner if symptoms worsen - Discussed red flags and need for immediate medical evaluation if any occur. - Discussed supportive care treatment with fluids, rest and analgesia. - Discussed expected course of illness TEACHING PROVIDER (Physician/PA/BENEFIT DIRECTOR) NOTE OF PERSONAL INVOLVEMENT IN CARE: I have personally seen and examined the patient and performed the medical decision-making components. I have reviewed the Advanced Practice Registered Nurse (BENEFIT DIRECTOR) Student's documentation and verified the findings in the note as written. Any additions or changes are noted in bold/italics. Signature: Debbi Arceo Date: 06/30/2022 Time: 2:29 PM documented in this encounterCity Hospital10-20-2022 Miscellaneous Notes* Telephone Encounter - Unique Rivas MD - 02/24/2022 4:29 PM EDT Patient's request for medication is as follows: Requested Prescriptions Pending Prescriptions Disp Refills lisdexamfetamine (VYVANSE) 10 mg capsule 30 capsule 0 Sig: Take 1 capsule by mouth once daily for 30 days. Prescription(s) as above. Please process accordingly. Unique Rivas MD * Telephone Encounter - Radha Kaiser LPN - 02/24/2022 8:39 AM EDT Last WCC: 07/09/2021 Last ADHD / Med Check visit: 11/04/2021 Verify RX Benefits Completed Last medication refill date: 01/24/2022 Requesting 30 day supply Retail pharmacy updated: Completed Patient aware RX will be sent to pharmacy. No need to notify patient. Immunizations due: COVID-19 VACCINE(1) Never done MENINGOCOCCAL B: Consider based on risk(1 of 2 - Risk Bexsero 2-dose series) Never done GC (GONORRHEA) SCREENING (18-24) Never done HEPATITIS C SCREENING Never done HIV SCREENING Never done CHLAMYDIA SCREENING () Never done DEPRESSION ASSESSMENT Never done Radha Kiaser LPN' documented in this encounterCity Hospital09-23-2022 Miscellaneous Notes* Telephone Encounter - Unique Rivas MD - 01/28/2022 4:46 PM EDT Addressed in another encounter. MS. * Telephone Encounter - Adriana Garces RN - 01/22/2022 10:48 AM EDT Last WCC: 07/09/21 Last ADHD / Med Check visit: Verify RX Benefits Completed Last medication refill date: 01/08/22 Requesting 30 day supply Retail pharmacy updated: Completed Patient aware RX will be sent to pharmacy. No need to notify patient. Immunizations due: COVID-19 VACCINE(1) Never done MENINGOCOCCAL B: Consider based on risk(1 of 2 - Risk Bexsero 2-dose series) Never done GC (GONORRHEA) SCREENING (18-24) Never done HEPATITIS C SCREENING Never done HIV SCREENING Never done CHLAMYDIA SCREENING (18-24) Never done INFLUENZA(1) due on 01/06/2022 Adriana Garces RN documented in this encounterCity Hospital08-18-2022 Miscellaneous Notes* Telephone Encounter - Unique Rivas MD - 12/23/2021 5:13 PM EDT Patient's request for medication is as follows: Requested Prescriptions Pending Prescriptions Disp Refills lisdexamfetamine (VYVANSE) 10 mg capsule 30 capsule 0 Sig: Take 1 capsule by mouth once daily for 30 days. Do not start before January 08, 2022. Prescription(s) as above. Please process accordingly. Unique Rivas MD * Telephone Encounter - Jonn Hardin RN - 12/23/2021 9:52 AM EDT Last WCC: 07/09/2021 Last ADHD / Med Check visit: 11/04/2021 Verify RX Benefits Completed Last medication refill date: 12/08/2021 Requesting 30 day supply Retail pharmacy updated: Completed Immunizations due: COVID-19 VACCINE(1) Never done MENINGOCOCCAL B: Consider based on risk(1 of 2 - Risk Bexsero 2-dose series) Never done GC (GONORRHEA) SCREENING (18-24) Never done HEPATITIS C SCREENING Never done HIV SCREENING Never done CHLAMYDIA SCREENING (18-24) Never done Jonn Hardin RN documented in this encounterCity Hospital08-03-2022 Miscellaneous Notes* Telephone Encounter - Radha Kaiser LPN - 12/08/2021 2:50 PM EDT The following approved medication requests have been transmitted electronically. Signed Prescriptions Disp Refills lisdexamfetamine (VYVANSE) 10 mg capsule 30 capsule 0 Sig: Take 1 capsule by mouth once daily for 30 days. GONZALO Class: C-II YAHAIRA: No Authorizing Provider: TESSA MARTINEZ LPN * Telephone Encounter - Tessa Martinez PA-C - 12/08/2021 2:45 PM EDT The following approved medication requests have been transmitted electronically. PDMP website checked and validated. All prescriptions have been APPROPRIATELY filled. No suspiciousactivity was identified. 12/08/2021 by Tessa Martinez PA-C Last med refill was 11/22/21 per report. Signed Prescriptions Disp Refills lisdexamfetamine (VYVANSE) 10 mg capsule 30 capsule 0 Sig: Take 1 capsule by mouth once daily for 30 days. GONZALO Class: C-II YAHAIRA: No Authorizing Provider: TESSA MARTINEZ PA-C * Telephone Encounter - Radha Kaiser LPN - 09/20/2021 9:00 AM EDT Last WCC: 07/09/2021 Last ADHD / Med Check visit: 07/09/2021 Verify RX Benefits Completed Last medication refill date: 08/19/2021 Requesting 30 day supply Retail pharmacy updated: Completed Patient aware RX will be sent to pharmacy. No need to notify patient. Immunizations due: COVID-19 VACCINE(1) Never done MENINGOCOCCAL B: Consider based on risk(1 of 2 - Risk Bexsero 2-dose series) Never done GC (GONORRHEA) SCREENING (18-24) Never done HEPATITIS C SCREENING Never done HIV SCREENING Never done CHLAMYDIA SCREENING (18-24) Never done Radha Kaiser LPN documented in this encounterCity Hospital07-27-2022 Miscellaneous Notes* Telephone Encounter - Angie Maya RN - 12/01/2021 8:48 PM EDT Images from the original note were not included. Symptomatic Caregiver COVID Call Patient Name: Nan Meyers Date of : 2000 Primary Care Physician: Unique Rivas MD Service Date: 12/01/2021 Service Time: 8:48 PM Symptomatic Caregiver COVID Call - confirmed: Yes -Caregiver employee ID: [id number] -Symptom onset: 11/30 Covid Immunization Dates Overdue - COVID-19 VACCINE (1) Overdue - never done No completion, postpone, frequency change, or communication history exists for this topic. Recent travel outside [place]: No Cares for COVID-19 positive patients: No Known positive COVID-19 contacts: No Previously positive for COVID: 04/28 Comorbidities: [] Obesity [] Diabetes Mellitus [] Asthma/COPD [] [] Other: Symptoms: [x] Mild [] Moderate [] Severe Nan meets criteria for Caregiver COVID19 testing. Plan -Caregiver COVID19 test ordered and scheduled -Reinforced self-isolation, avoiding public areas and gatherings, pending COVID19 result -Mask while home with family and not isolated alone -Advised no work pending COVID19 result -Advised to seek evaluation by primary care provider, [facility], or ED with worsening or escalating symptoms -Advised to call the COVID Hotline with outstanding questions/comments/concerns Signature: Angie Maya RN Patient Name: Nan Meyers Date: 12/01/2021 Time: 8:48 PM Pager/Contact: [facility] History of Present illness Narrative* Unique Rivas MD - 11/04/2021 9:56 AM EDT FOLLOW UP VISIT PEDIATRIC ADHD SERVICE DATE: 11/04/2021 Nan Meyers is a 21 year old female who presents for follow up visit for ADHD. She has been taking Vyvanse 10mg daily when working. The medication has been working well for her. Patient has been living in her apartment for a couple months now. She has a puppy which she got in March. Last month people complained about her puppy barking and they were threatened to be evicted. They are also going to start charging more for their rent because of having a pet unless they getsome kind of letter. Patient states since she got the puppy she has had a boost in her happiness and her anxiety levels have gone down dramatically. She has been in counseling when she was younger but not in the recent past. She hasn't noticed her anxiety being targeted towards anything specific. She is sleeping prettygood but prior to getting her dog she was having issues falling asleep and staying asleep. Onset of recent symptoms approximately a couple year(s) ago, waxing and waning since that time. Current symptoms include anxious feelings, anhedonia, insomnia and fatigue. All of these symptoms have improved recently since she got her puppy. History was obtained from: patient PAST MEDICAL HISTORY Diagnosis Date ADD (attention deficit disorder with hyperactivity) Anxiety 10/05/2014 Constipation 07/26/2011 resolved Fracture of distal end of radius 06/15/2012 Irregular menstrual cycle 03/11/2017 Irregular periods/menstrual cycles 09/2015 NEGATIVE HISTORY OF 04/22/2014 Normal Color Vision Poor weight gain (0-17) 11/08/2011 Right ovarian without intrauterine 09/05/2020 Short stature 04/01/2013 April 01, 2013 - bone age is delayed Short stature (child) 04/01/2013 ROS/Screen for medication adverse effects: Abdominal pain: no Appetite problems: no Drowsiness: no Sleep problems: no Headaches: no Depression: no Suicidal ideation: no Chest pain: no Palpitations: no Syncope: no PHYSICAL EXAM: BP 110/60 Pulse 80 Temp 36.4 C (97.5 F) (Temporal Artery) Resp 18 Wt 48.2 kg (106 lb 5 oz) LMP 10/09/2021 BMI 20.60 kg/m Blood pressure percentiles are not available for patients who are 18 years or older. EXAM: APPEARANCE Well appearing, alert, in no acute distress, well-hydrated, well nourished. PSYCH: Posture and motor behavior: normal posture and motor behavior Dress, grooming, personal hygiene: normal dress and grooming Facial expression: good eye contact Speech: normal speech Mood: anxious Coherency and relevance of thought: normal thought processes Memory: normal memory Assessment: 21 year old female with ADHD with optimization of symptoms and without significant medication side effects. She also has anxiety and carries a diagnosis of PTSD Plan: - Continue current medication. - Letter written for linoleum layer animal - Follow up in 3-6 months for routine ADHD follow up I spent a total of 30 minutes on the date of the service which included preparing to see the patient, [id number] patient care, completing clinical documentation and obtaining and/or reviewing separately obtained history. SIGNATURE: Unique Rivas MD PATIENT NAME: Nan Meyers DATE: November 04, 2021 TIME: 9:56 AM documented in this [facility]06-30-2022 Instructions* Patient Instructions* Unique Rivas MD - 11/04/2021 9:56 AM EDT 5 to Go!TM Healthy Kids Inside & Out 5 Eat FIVE fruits and veggies a day 4 Give and get FOUR compliments a day 3 Consume THREE calcium products a day 2 Limit media time to TWO hours a day 1 Get at least ONE hour of exercise a day 0 Consume ZERO sugar-sweetened drinks Go! Be healthy, inside and out! [email or web address] documented in this [facility]05-17-2022 Miscellaneous Notes* Telephone Encounter - Allyn Leach Ma - 09/21/2021 8:04 AM EDT Refill has been sent to the pharmacy for months 09/20/21, 10/20/21 and 11/19/21 documented in this [facility]05-17-2022 Miscellaneous Notes* Telephone Encounter - Allyn Leach Ma - 09/21/2021 7:55 AM EDT The following approved medication requests have been transmitted electronically. Signed Prescriptions Disp Refills lisdexamfetamine (VYVANSE) 10 mg capsule 30 capsule 0 Sig: Take 1 capsule by mouth once daily for 30 days. GONZALO Class: C-II YAHAIRA: No Authorizing Provider: UNIQUE RIVAS lisdexamfetamine (VYVANSE) 10 mg capsule 30 capsule 0 Sig: Take 1 capsule by mouth every morning for 30 days. Do not start before October 20, 2021. GONZALO Class: C-II Authorizing Provider: UNIQUE RIVAS lisdexamfetamine (VYVANSE) 10 mg capsule 30 capsule 0 Sig: Take 1 capsule by mouth every morning for 30 days. Do not start before November 19, 2021. GONZALO Class: C-II Authorizing Provider: UNIQUE RIVAS Ma * Telephone Encounter - Unique Rivas MD - 09/20/2021 8:48 PM EDT Patient's request for medication is as follows: Signed Prescriptions Disp Refills lisdexamfetamine (VYVANSE) 10 mg capsule 30 capsule 0 Sig: Take 1 capsule by mouth once daily for 30 days. GONZALO Class: C-II YAHAIRA: No Authorizing Provider: UNIQUE RIVAS lisdexamfetamine (VYVANSE) 10 mg capsule 30 capsule 0 Sig: Take 1 capsule by mouth every morning for 30 days. Do not start before October 20, 2021. GONZALO Class: C-II Authorizing Provider: UNIQUE RIVAS lisdexamfetamine (VYVANSE) 10 mg capsule 30 capsule 0 Sig: Take 1 capsule by mouth every morning for 30 days. Do not start before November 19, 2021. GONZALO Class: C-II Authorizing Provider: UNIQUE RIVAS Prescription(s) as above. Please process accordingly. Unique Rivas MD * Telephone Encounter - May Shaffer RN - 09/20/2021 3:04 PM EDT Last WCC: 07/09/21 Last ADHD / Med Check visit: 07/09/21 Verify RX Benefits Completed Last medication refill date: 08/19/21 Requesting 30 day supply Retail pharmacy updated: Completed Patient aware RX will be sent to pharmacy. No need to notify patient. Immunizations due: COVID-19 VACCINE(1) Never done MENINGOCOCCAL B: Consider based on risk(1 of 2 - Risk Bexsero 2-dose series) Never done GC (GONORRHEA) SCREENING (18-24) Never done HEPATITIS C SCREENING Never done HIV SCREENING Never done CHLAMYDIA SCREENING (18-24) Never done May Shaffer RN documented in this [facility]City [facility]05-16-2022 Instructions* Patient Instructions* Unique Rivas MD - 09/20/2021 8:48 PM EDT 5 to Go!TM Healthy Kids Inside & Out 5 Eat FIVE fruits and veggies a day 4 Give and get FOUR compliments a day 3 Consume THREE calcium products a day 2 Limit media time to TWO hours a day 1 Get at least ONE hour of exercise a day 0 Consume ZERO sugar-sweetened drinks Go! Be healthy, inside and out! [email or web address] documented in this encounterCity [facility]04-04-[facility] History of Present illness Narrative* Kj Amaya MD - 08/09/2021 10:05 AM EDT Patient presents with: Dental Problem: right side top and bottom tooth, x 3 days HPI: Tooth pain: Duration:Location: Upper right last molar 3 days ago, now mostly just the right 2nd lower molar since yesterday. Character: Sharp with drinks or chewing and throbbing at rest Radiation: Sometimes into the ear Aggravating: Chewing, cold drinks Relieving: Pain relievers: Motrin and numbing gel Associated: Hx of temp filling in lower molar, Pertinent negatives: Denies fever, foul drainage Planning root canal in October. Her dentist has retired and she cannot find any appointments for 2 months. MEDICATIONS: lisdexamfetamine (VYVANSE) 10 mg capsule Take 1 capsule by mouth once daily for 30 days. ALLERGIES: ALLERGIES No Known Allergies VITALS: BP 106/62 Pulse 108 Temp 37.2 C (98.9 F) Resp 16 Wt 49 kg (108 lb) LMP 06/18/2021 SpO2 99% BMI 20.93 kg/m PHYSICAL EXAM: GEN: pleasant, no acute distress, alert HEENT: PERRL, EOMI, TMs and canals clear, no TMJ tenderness, MMM Upper right molars non-tender. 2nd right lower molar has filling and is tender. NECK: supple, no lymphadenopathy, no thyromegaly HEART: regular rate, regular rhythm, no murmurs LUNGS: clear to auscultation, no wheezes or crackles, no increased WOB EXT: no clubbing, no cyanosis, no edema ASSESSMENT/PLAN: 1. Toothache - ICD9: 525.9, ICD10: K08.89 Discussed antibiotic can help infection but will not be effective for nerve irritation from cavity/failed filling. - PENICILLIN V POTASSIUM 500 MG TABLET Take dual pain meds every 6 hours - ACETAMINOPHEN 325 MG TABLET - IBUPROFEN 600 MG TABLET Continue to seek follow up with dentist. Kj Amaya MD documented in this encounterCity [facility]11-25-2013 History of Past illness Narrative* Problem Noted Date Resolved Date Short stature 04/01/2013 07/09/2021 Overview: April 01, 2013 - bone age is delayed Fracture of left distal radius 04/16/2012 0 06/15/2012 Fracture of radius, distal, right, closed 201104/16/2012 Poor weight gain (0-17) 11/08/2011 07/10/19 22 Constipation 07/26/2011 11/08/2011 documented as of this encounter (statuses as of 08/09/2021) [facility] Narrative* Problem Noted Date Resolved Date Short stature 04/01/2013 07/09/2021 Overview: April 01, 2013 - bone age is delayed Fracture of left distal radius 04/16/2012 0 06/15/2012 Fracture of radius, distal, right, closed 201104/16/2012 Poor weight gain (0-17) 11/08/2011 07/10/19 22 Constipation 07/26/2011 11/08/2011 documented as of this encounter (statuses as of 09/21/2021) [facility] Narrative* Problem Noted Date Resolved Date Short stature 04/01/2013 07/09/2021 Overview: April 01, 2013 - bone age is delayed Fracture of left distal radius 04/16/2012 0 06/15/2012 Fracture of radius, distal, right, closed 201104/16/2012 Poor weight gain (0-17) 11/08/2011 07/10/19 22 Constipation 07/26/2011 11/08/2011 documented as of this encounter (statuses as of 09/21/2021) [facility] Narrative* Problem Noted Date Resolved Date Short stature 04/01/2013 07/09/2021 Overview: April 01, 2013 - bone age is delayed Fracture of left distal radius 04/16/2012 0 06/15/2012 Fracture of radius, distal, right, closed 201104/16/2012 Poor weight gain (0-17) 11/08/2011 07/10/19 22 Constipation 07/26/2011 11/08/2011 documented as of this encounter (statuses as of 10/22/2021) [facility] Narrative* Problem Noted Date Resolved Date Short stature 04/01/2013 07/09/2021 Overview: April 01, 2013 - bone age is delayed Fracture of left distal radius 04/16/2012 0 06/15/2012 Fracture of radius, distal, right, closed 201104/16/2012 Poor weight gain (0-17) 11/08/2011 07/10/19 22 Constipation 07/26/2011 11/08/2011 documented as of this encounter (statuses as of 11/18/2021) [facility] Narrative* Problem Noted Date Resolved Date Short stature 04/01/2013 07/09/2021 Overview: April 01, 2013 - bone age is delayed Fracture of left distal radius 04/16/2012 0 06/15/2012 Fracture of radius, distal, right, closed 201104/16/2012 Poor weight gain (0-17) 11/08/2011 07/10/19 22 Constipation 07/26/2011 11/08/2011 documented as of this encounter (statuses as of 12/02/2021) [facility] Narrative* Problem Noted Date Resolved Date Short stature 04/01/2013 07/09/2021 Overview: April 01, 2013 - bone age is delayed Fracture of left distal radius 04/16/2012 0 06/15/2012 Fracture of radius, distal, right, closed 201104/16/2012 Poor weight gain (0-17) 11/08/2011 07/10/19 22 Constipation 07/26/2011 11/08/2011 documented as of this encounter (statuses as of 12/08/2021) [facility] Narrative* Problem Noted Date Resolved Date Short stature 04/01/2013 07/09/2021 Overview: April 01, 2013 - bone age is delayed Fracture of left distal radius 04/16/2012 0 06/15/2012 Fracture of radius, distal, right, closed 201104/16/2012 Poor weight gain (0-17) 11/08/2011 07/10/19 22 Constipation 07/26/2011 11/08/2011 documented as of this encounter (statuses as of 12/23/2021) [facility]arrative* Problem Noted Date Resolved Date Short stature 04/01/2013 07/09/2021 Overview: April 01, 2013 - bone age is delayed Fracture of left distal radius 04/16/2012 0 06/15/2012 Fracture of radius, distal, right, closed 201104/16/2012 Poor weight gain (0-17) 11/08/2011 07/10/19 22 Constipation 07/26/2011 11/08/2011 documented as of this encounter (statuses as of 12/28/2021) [facility]arrative* Problem Noted Date Resolved Date Short stature 04/01/2013 07/09/2021 Overview: April 01, 2013 - bone age is delayed Fracture of left distal radius 04/16/2012 0 06/15/2012 Fracture of radius, distal, right, closed 201104/16/2012 Poor weight gain (0-17) 11/08/2011 07/10/19 22 Constipation 07/26/2011 11/08/2011 documented as of this encounter (statuses as of 01/06/2022) [facility]arrative* Problem Noted Date Resolved Date Short stature 04/01/2013 07/09/2021 Overview: April 01, 2013 - bone age is delayed Fracture of left distal radius 04/16/2012 0 06/15/2012 Fracture of radius, distal, right, closed 201104/16/2012 Poor weight gain (0-17) 11/08/2011 07/10/19 22 Constipation 07/26/2011 11/08/2011 documented as of this encounter (statuses as of 01/21/2022) [facility]arrative* Problem Noted Date Resolved Date Short stature 04/01/2013 07/09/2021 Overview: April 01, 2013 - bone age is delayed Fracture of left distal radius 04/16/2012 0 06/15/2012 Fracture of radius, distal, right, closed 201104/16/2012 Poor weight gain (0-17) 11/08/2011 07/10/19 22 Constipation 07/26/2011 11/08/2011 documented as of this encounter (statuses as of 01/24/2022) [facility]* Problem Noted Date Resolved Date Short stature 04/01/2013 07/09/2021 Overview: April 01, 2013 - bone age is delayed Fracture of left distal radius 04/16/2012 0 06/15/2012 Fracture of radius, distal, right, closed 201104/16/2012 Poor weight gain (0-17) 11/08/2011 07/10/19 22 Constipation 07/26/2011 11/08/2011 documented as of this encounter (statuses as of 01/25/2022) [facility]* Problem Noted Date Resolved Date Short stature 04/01/2013 07/09/2021 Overview: April 01, 2013 - bone age is delayed Fracture of left distal radius 04/16/2012 0 06/15/2012 Fracture of radius, distal, right, closed 201104/16/2012 Poor weight gain (0-17) 11/08/2011 07/10/19 22 Constipation 07/26/2011 11/08/2011 documented as of this encounter (statuses as of 01/28/2022) [facility]* Problem Noted Date Resolved Date Short stature 04/01/2013 07/09/2021 Overview: April 01, 2013 - bone age is delayed Fracture of left distal radius 04/16/2012 0 06/15/2012 Fracture of radius, distal, right, closed 201104/16/2012 Poor weight gain (0-17) 11/08/2011 07/10/19 22 Constipation 07/26/2011 11/08/2011 documented as of this encounter (statuses as of 02/24/2022) [facility]* Problem Noted Date Resolved Date Short stature 04/01/2013 07/09/2021 Overview: April 01, 2013 - bone age is delayed Fracture of left distal radius 04/16/2012 0 06/15/2012 Fracture of radius, distal, right, closed 201104/16/2012 Poor weight gain (0-17) 11/08/2011 07/10/19 22 Constipation 07/26/2011 11/08/2011 documented as of this encounter (statuses as of 06/30/2022) [facility]* Problem Noted Date Resolved Date Short stature 04/01/2013 07/09/2021 Overview: April 01, 2013 - bone age is delayed Fracture of left distal radius 04/16/2012 0 06/15/2012 Fracture of radius, distal, right, closed 201104/16/2012 Poor weight gain (0-17) 11/08/2011 07/10/19 22 Constipation 07/26/2011 11/08/2011 documented as of this encounter (statuses as of 07/01/2022) [facility]* Problem Noted Date Resolved Date Short stature 04/01/2013 07/09/2021 Overview: April 01, 2013 - bone age is delayed Fracture of left distal radius 04/16/2012 0 06/15/2012 Fracture of radius, distal, right, closed 201104/16/2012 Poor weight gain (0-17) 11/08/2011 07/10/19 22 Constipation 07/26/2011 11/08/2011 documented as of this encounter (statuses as of 09/13/2022) [facility]* Problem Noted Date Resolved Date Short stature 04/01/2013 07/09/2021 Overview: April 01, 2013 - bone age is delayed Fracture of left distal radius 04/16/2012 0 06/15/2012 Fracture of radius, distal, right, closed 201104/16/2012 Poor weight gain (0-17) 11/08/2011 07/10/19 22 Constipation 07/26/2011 11/08/2011 documented as of this encounter (statuses as of 10/26/2022) [facility]* Problem Noted Date Diagnosed Date Resolved Date Short stature 04/01/2013 07/09/2021 Overview: April 01, 2013 - bone age is delayed Fracture of left distal radius 04/16/2012 06/15/2012 Fracture of radius, distal, right, closed 03/31/2012 04/16/2012 Poor weight gain (0-17) 11/08/2011 03/0 08/2021 Constipation 07/26/2011 11/08/2011 documented as of this encounter (statuses as of 01/19/2023) [facility]* Problem Noted Date Diagnosed Date Resolved Date Short stature 04/01/2013 07/09/2021 Overview: April 01, 2013 - bone age is delayed Fracture of left distal radius 04/16/2012 06/15/2012 Fracture of radius, distal, right, closed 03/31/2012 04/16/2012 Poor weight gain (0-17) 11/08/2011 03/0 08/2021 Constipation 07/26/2011 11/08/2011 documented as of this encounter (statuses as of 01/25/2023) [facility]* Problem Noted Date Diagnosed Date Resolved Date Short stature 04/01/2013 07/09/2021 Overview: April 01, 2013 - bone age is delayed Fracture of left distal radius 04/16/2012 06/15/2012 Fracture of radius, distal, right, closed 03/31/2012 04/16/2012 Poor weight gain (0-17) 11/08/2011 03/0 08/2021 Constipation 07/26/2011 11/08/2011 documented as of this encounter (statuses as of 02/28/2023) [facility]* Problem Noted Date Diagnosed Date Resolved Date Short stature 04/01/2013 07/09/2021 Overview: April 01, 2013 - bone age is delayed Fracture of left distal radius 04/16/2012 06/15/2012 Fracture of radius, distal, right, closed 03/31/2012 04/16/2012 Poor weight gain (0-17) 11/08/2011 03/0 08/2021 Constipation 07/26/2011 11/08/2011 documented as of this encounter (statuses as of 03/29/2023) [facility]* Problem Noted Date Diagnosed Date Resolved Date Short stature 04/01/2013 07/09/2021 Overview: April 01, 2013 - bone age is delayed Fracture of left distal radius 04/16/2012 06/15/2012 Fracture of radius, distal, right, closed 03/31/2012 04/16/2012 Poor weight gain (0-17) 11/08/2011 03/0 08/2021 Constipation 07/26/2011 11/08/2011 documented as of this encounter (statuses as of 04/21/2023) [facility]* Problem Noted Date Diagnosed Date Resolved Date Short stature 04/01/2013 07/09/2021 Overview: April 01, 2013 - bone age is delayed Fracture of left distal radius 04/16/2012 06/15/2012 Fracture of radius, distal, right, closed 03/31/2012 04/16/2012 Poor weight gain (0-17) 11/08/2011 03/0 08/2021 Constipation 07/26/2011 11/08/2011 documented as of this encounter (statuses as of 06/26/2023) [facility] Problem Noted Date Diagnosed Date Resolved Date Short stature 04/01/2013 07/09/2021 Overview: April 01, 2013 - bone age is delayed Fracture of left distal radius 04/16/2012 06/15/2012 Fracture of radius, distal, right, closed 03/31/2012 04/16/2012 Poor weight gain (0-17) 11/08/20110 08/2021 Constipation 07/26/2011 11/08/2011 documented as of this encounter (statuses as of 07/05/2023) [facility] Arnoldo Hard[facility] January 30, 2023 8:53am Note Date/Time January 30, 2023 8:51am [facility] Medical Records Department [address] [place] [address] Emergency Department Summary 01/30/23 MR#: [id number] Acct: [id number] Name: NAN MEYERS Rep #:[id number] : 2000 23 From: Arnoldo Harding MD PCP: Dr. Unique Rivas MD Status:P RE ER Location: ED HPI History of Present Illness Chief Complaint: General Illness Narrative Narrative: 23-year-old female who denies significant past medical history presents with nausea and vomiting after taking Plan B last evening. Of note, she states that she started her period last week and was on it for 2 days, but on , approximately 5 days ago, she took a Plan B which halted her menses. She had intercourse on Monday, the following day, and waited 48 hours and took another Plan B last evening. This morning, she awoke nauseated while she had been nauseated after taking it last evening. She vomited twice without any blood in her emesis. She denies any vaginal bleeding currently, no pelvic pain. She states that basically she is here because she needs a note for work today as well. She does not see an MINE SUPERVISOR regularly but wants to start control again. PFSH [facility] Medical History ADHD Anxiety Hemoperitoneum Home Medications lisdexamfetamine 10 mg capsule (Vyvanse) 10 mg adhd 09/09/20 [History Last Taken Unknown] etonogestrel 68 mg subdermal implant (Nexplanon) 1 implant subdermal ONCE 09/14/20 [History Last Taken Unknown] ondansetron 4 mg disintegrating tablet 4 mg PO Q6H PRN nausea and vomiting #10 tabs 01/30/23 [Rx Last Taken Unknown] Allergy/AdvReac Type Severity Reaction Status Date / Time No Known Allergies Allergy Verified 01/30/23 08:12 Family History Mother Hypertension Hyperlipidemia Surgical History History of ectopic Social History Smoking Status: Never smoker alcohol intake: never substance use type: does not use caffeine: No seatbelt use: always do you feel safe at home: Yes ROS ROS ED ROS Narrative Constitutional: No fever, no chills. HEENT: No sore throat. No neck pain. No loss of vision. No rhinorrhea. Cardiovascular: No chest pain. No palpitations. No pedal edema. Respiratory: No cough, no shortness of breath. Abdominal: No abdominal pain. Positive nausea, 2 episodes of nonbloody emesis. Genitourinary: No dysuria. No hematuria. No vaginal bleeding. Musculoskeletal: No myalgias. No arthralgias. Neurologic: No headaches. No dizziness. No lightheadedness. Skin: No rash. No change in color. Psychiatric: No depression. No anxiety. EXAM Physical Exam Narrative Exam Narrative: Afebrile. Vital signs noted. HEENT: Normocephalic. Atraumatic. PERRL, EOMI. Neck soft and supple. No pointtenderness or step off. Cardiovascular: Regular rate and rhythm. No murmurs, rubs, or gallops appreciated. Respiratory: No tachypnea. Lungs clear to auscultation bilaterally. Gastrointestinal: Abdomen soft, nontender, with normoactive bowel sounds. No rebound or guarding. Neurological: Awake. Alert. Nonfocal, nonlateralizing. Skin: No rash. Normal color. No pallor. Musculoskeletal: No pedal edema. Full range of motion extremities. Const Vital Signs: 01/30/23 08:13 Temperature 97.6 F L Temperature Source Temporal Pulse Rate 64 Respiratory Rate 14 Blood Pressure 118/78 Blood Pressure Mean 91 Pulse Ox 98 Oxygen Delivery Method Room Air MDM MDM MDM Narrative Medical decision making narrative: I reviewed her prior ED visit. I do not feel any laboratory work is indicated. I do not feel test is indicated as she is not having vaginal bleeding or pelvic pain, and she most recently had intercourse on Monday. I do feel thather nausea and vomiting is secondary to her medication as this is essentially hormonal treatment. She was treated with Zofran ODT and a prescription written for 10 tablets. She was told that she may need to perform a test in the next 1 to 2 weeks to make sure that her Plan B was effective. She was also recommended to follow-up with an MINE SUPERVISOR. She was given the number to the [facility] on-call at her request. I feel she can be discharged safely homewith follow-up. I do feel that it is too early to be concerned about ectopic currently as she is not having vaginal bleeding and she just had intercourse within the last week. Additionally, she states that she already took 2 home test which were both negative. She was told to return with a positive home , and follow-up with an MINE SUPERVISOR soon as possible. Return instructions to the emergency department were reviewed. Disposition is discharged home in stable condition. History & Record Review Additional record(s) reviewed:: Prior ED visit Discharge Plan Triage Chief Complaint: General Illness ED Provider: Arnoldo Harding Dx/Rx/DC Orders Clinical Impression: Medication side effect, Nausea and vomiting Instructions: ED Drug Reaction, Other, ED Vomiting (Adult) Prescriptions: New ondansetron 4 mg tablet,disintegrating 4 mg PO Q6H PRN (Reason: nausea and vomiting) Qty: 10 0RF No Action Nexplanon 68 mg implant 1 implant subdermal ONCE Rx Instructions: as a single dose Vyvanse 10 mg capsule 10 mg Patient Comments: Take 1 capsule by mouth once daily for 30 days. Stand Alone Forms: ED Work / School Excuse Primary Care Provider: Unique Rivas Referrals: Unique Rivas MD [Primary Care Provider] - Nereida Garcia MD [Med Staff - Active Staff] - As soon as possible Disposition Disposition: Home, Self Care What to do if you have Problems For any increased pain, shortness of breath, bleeding, nausea or vomiting, chestpain, or any unexpected problems, contact your Primary Care Provider. Call [facility] ([phone]) or report to the closest Emergency Room. Call 911 if necessary. 01/30/23 0853 <Electronically signed by Arnoldo Harding MD> Cosigner Signature (if applicable): CC: Dr. Unique Rivas MD ~ Signed [facility] Work Phone: Evaluation note* Diagnosis Toothache- Primary Unspecified disorder of the teeth and supporting structures [facility] Diagnosis Attention deficit hyperactivity disorder (ADHD), unspecified ADHD type- [facility] Diagnosis Attention deficit hyperactivity disorder (ADHD), unspecified ADHD type [facility] Diagnosis Attention deficit hyperactivity disorder (ADHD), unspecified ADHD type [facility] Diagnosis Attention deficit hyperactivity disorder (ADHD), predominantly inattentive type- Primary Anxiety Anxiety state, unspecified [facility] Diagnosis Suspected 2019 novel coronavirus infection- Primary [facility]* Diagnosis Attention deficit hyperactivity disorder (ADHD), unspecified ADHD type [facility]* Diagnosis Attention deficit hyperactivity disorder (ADHD), unspecified ADHD type [facility] Diagnosis Encounter for immunization- Primary Need for other specified prophylactic vaccination against single bacterial disease [facility] Diagnosis Encounter for PPD skin test reading- Primary Other follow-up examination Screening-pulmonary TB Screening examination for pulmonary tuberculosis [facility] Diagnosis Encounter for PPD skin test reading- Primary Other follow-up examination documented in this encounter [facility] note* Diagnosis Attention deficit hyperactivity disorder (ADHD), unspecified ADHD type documented in this encounter [facility] note* Diagnosis Encounter for screening laboratory testing for COVID-19 virus- Primary documented in this encounter [facility] note* Diagnosis URI, acute- Primary Acute upper respiratory infections of unspecified site Pharyngitis, unspecified etiology documented in this encounter [facility] note* Diagnosis Fluid level behind tympanic membrane of right ear- Primary Headache, unspecified headache type documented in this encounter [facility] note* Diagnosis Costochondritis- Primary Tietze's disease documented in this encounter [facility] note* Diagnosis Nausea vomiting and diarrhea- Primary Diarrhea documented in this encounter [facility] noteNo assessment information availableWOhioHealth Work Phone: [facility]* Diagnosis Onset Date Resolution Status Contraception management acu te Contraception management acu [facility] Work Phone: Evaluation note* Diagnosis Nausea- Primary Nausea alone documented in this encounter [facility] note* Diagnosis Wellness examination- Primary documented in this encounter [facility] note* Diagnosis Acute hip pain, right- Primary documented in this encounter [facility] note* Diagnosis Exposure to SARS-associated coronavirus- Primary documented in this encounter [facility] note* Diagnosis Acute otitis media, left- Primary Unspecified otitis media Sore throat Acute pharyngitis documented in this encounter [facility] note* Diagnosis Wellness examination- Primary documented in this encounter [facility] note* Diagnosis Pain of right lower extremity- Primary documented in this encounter [facility] note* Diagnosis Headache, unspecified headache type- Primary documented in this encounter [facility] note* Diagnosis URI, acute- Primary Acute upper respiratory infections of unspecified site documented in this encounter [facility] note* Diagnosis Wellness examination- Primary Family history of hypothyroidism Family history of other endocrine and metabolic diseases Right leg pain Pain in limb documented in this encounter [facility] note* Diagnosis Flu-like symptoms- Primary Other general symptoms documented in this encounter [facility] note* Diagnosis Sore throat- Primary Acute pharyngitis Acute pharyngitis, unspecified etiology [facility] Diagnosis Rhinosinusitis- Primary Unspecified sinusitis (chronic) [facility]* Diagnosis Screening-pulmonary TB- Primary Screening examination for pulmonary tuberculosis [facility]No reason for referral information availableWOhioHealth Work Phone: Health Concerns Infection Onset Date Last Indicated Resolved Time COVID-19 Rule-Out 12/02/2021 12/02/2021 12/02/2021 8:35 PM EDT Infection Onset Date Last Indicated Resolved Time COVID-19 Rule-Out 09/12/2022 09/12/2022 Chief Complaint and Reason for Visit Chief Complaint general illness Chief Complaint general illness BC consult Nexplanon insertion Reason for Visit Contraception manage ment Contraception management Chief Complaint Admit Date Est Care/Urine test/ Vitals August 27, 2024 9:43am New OB, LMP 07/17, [place] 04/23September 16 11:29am Reason for Visit Admit Date ADHD August 27, 2024 9:4 3am Anxiety August 27, 2024 9:4 3am History of ectopic August 27, 2024 9:43am August 27, 2024 9:4 3am Smoker August 27, 2024 9:4 3am Supervision of high-risk August 27, 2024 9:43am ADHD September 16, 2024 11:29 am Anxiety September 16, 2024 11:29 am History of ectopic September 16 11:29am September 16, 2024 11:29 am Smoker September 16, 2024 11:29 am Supervision of high-risk September 052024 11:29am Chief Complaint Admit Date Est Care/Urine test/ Vitals August 27, 2024 9:43am New OB, LMP 07/17, [place] 04/23September 16 11:29am 13wk ob October 15, 2024 8:30 am Reason for Visit Admit Date ADHD August 27, 2024 9:4 3am Anxiety August 27, 2024 9:4 3am History of ectopic August 27, 2024 9:43am August 27, 2024 9:4 3am Smoker August 27, 2024 9:4 3am Supervision of high-risk August 27, 2024 9:43am ADHD September 16, 2024 11:29 am Anxiety September 16, 2024 11:29 am History of ectopic September 16 11:29am September 16, 2024 11:29 am Smoker September 16, 2024 11:29 am Supervision of high-risk September 052024 11:29am ADHD October 15, 2024 8:30 am Anxiety October 15, 2024 8:30 am Chlamydia infection affecting October 15, 2024 8:30am History of ectopic October 15, 2024 8:30am October 15, 2024 8:30 am Smoker October 15, 2024 8:30 am Supervision of high-risk October 15, 2024 8:30am Advance Directives No Advanced Directives Records Found Advance Directive Response Recorded Date/ Time Living Will No January 30, 2023 8:43am Power of Project Development Coordinator No January 8:43am Reason for Referral Specialty Diagnoses / Procedures Referred By Contac t Referred To Contact [facility] Diagnoses Right leg pain Procedures CONSULT TO PHYSICAL THERAPY PHYSICAL THERAPY EVALUATION HIGH COMPLEX 45 MINS Marisa William, BENEFIT DIRECTOR.[employer] [address] [place] [address] [facility] [place] [address] [place] [id number] Referral ID Status Reason Start Date Expiration Date Visits Requested Visits Authorized [id number] Pending Review Auto-Generat ed Referral 05/10/2024 05/10/2025 1 1 Summary Purpose Family History Relationship Condition Age at Onset Recorded Date/T warren mother Disorder of thyroid Unknown Adopted Unknown Hypertension Unknown Hyperlipidemia Unknown grandmother Hypertension Unknown grandfather Hypertension Unknown father Asthma Unknown No Family History Records Found Additional Source Comments Source Comments (unrecognize d section and content) In the event this informatio n is protected by the Federal Confidentiality of Alcohol and Drug Abuse Patient Records regulations: The Federal rules restrict any use of the information to criminally investigate or prosecute any alcohol or drug abuse patient.[facility] the event this information is protected by the Federal Confidentiality of Alcohol and Drug Abuse Patient Records regulations: The Federal rules restrict any use of the information to criminally investigate or prosecute any alcohol or drug abuse patient.[facility] the event this information is protected by the Federal Confidentiality of Alcohol and Drug Abuse Patient Records regulations: The Federal rules restrict any use of the information to criminally investigate or prosecute any alcohol or drug abuse patient.[facility] the event this information is protected by the Federal Confidentiality of Alcohol and Drug Abuse Patient Records regulations: The Federal rules restrict any use of the information to criminally investigate or prosecute any alcohol or drug abuse patient.[facility] the event this information is protected by the Federal Confidentiality of Alcohol and Drug Abuse Patient Records regulations: The Federal rules restrict any use of the information to criminally investigate or prosecute any alcohol or drug abuse patient.[facility] the event this information is protected by the Federal Confidentiality of Alcohol and Drug Abuse Patient Records regulations: The Federal rules restrict any use of the information to criminally investigate or prosecute any alcohol or drug abuse patient.[facility] the event this information is protected by the Federal Confidentiality of Alcohol and Drug Abuse Patient Records regulations: The Federal rules restrict any use of the information to criminally investigate or prosecute any alcohol or drug abuse patient.[facility] the event this information is protected by the Federal Confidentiality of Alcohol and Drug Abuse Patient Records regulations: The Federal rules restrict any use of the information to criminally investigate or prosecute any alcohol or drug abuse patient.[facility] the event this information is protected by the Federal Confidentiality of Alcohol and Drug Abuse Patient Records regulations: The Federal rules restrict any use of the information to criminally investigate or prosecute any alcohol or drug abuse patient.[facility] the event this information is protected by the Federal Confidentiality of Alcohol and Drug Abuse Patient Records regulations: The Federal rules restrict any use of the information to criminally investigate or prosecute any alcohol or drug abuse patient.[facility] the event this information is protected by the Federal Confidentiality of Alcohol and Drug Abuse Patient Records regulations: The Federal rules restrict any use of the information to criminally investigate or prosecute any alcohol or drug abuse patient.[facility] the event this information is protected by the Federal Confidentiality of Alcohol and Drug Abuse Patient Records regulations: The Federal rules restrict any use of the information to criminally investigate or prosecute any alcohol or drug abuse patient.[facility]In the event this information is protected by the Federal Confidentiality of Alcohol and Drug Abuse Patient Records regulations: The Federal rules restrict any use of the information to criminally investigate or prosecute any alcohol or drug abuse patient.[facility] the event this information is protected by the Federal Confidentiality of Alcohol and Drug Abuse Patient Records regulations: The Federal rules restrict any use of the information to criminally investigate or prosecute any alcohol or drug abuse patient.[facility]In the event this information is protected by the Federal Confidentiality of Alcohol and Drug Abuse Patient Records regulations: The Federal rules restrict any use of the information to criminally investigate or prosecute any alcohol or drug abuse patient.[facility]In the event this information is protected by the Federal Confidentiality of Alcohol and Drug Abuse Patient Records regulations: The Federal rules restrict any use of the information to criminally investigate or prosecute any alcohol or drug abuse patient.[facility]In the event this information is protected by the Federal Confidentiality of Alcohol and Drug Abuse Patient Records regulations: The Federal rules restrict any use of the information to criminally investigate or prosecute any alcohol or drug abuse patient.[facility]In the event this information is protected by the Federal Confidentiality of Alcohol and Drug Abuse Patient Records regulations: The Federal rules restrict any use of the information to criminally investigate or prosecute any alcohol or drug abuse patient.[facility]In the event this information is protected by the Federal Confidentiality of Alcohol and Drug Abuse Patient Records regulations: The Federal rules restrict any use of the information to criminally investigate or prosecute any alcohol or drug abuse patient.[facility]In the event this information is protected by the Federal Confidentiality of Alcohol and Drug Abuse Patient Records regulations: The Federal rules restrict any use of the information to criminally investigate or prosecute any alcohol or drug abuse patient.[facility] HospitalIn the event this information is protected by the Federal Confidentiality of Alcohol and Drug Abuse Patient Records regulations: The Federal rules restrict any use of the information to criminally investigate or prosecute any alcohol or drug abuse patient.[facility]In the event this information is protected by the Federal Confidentiality of Alcohol and Drug Abuse Patient Records regulations: The Federal rules restrict any use of the information to criminally investigate or prosecute any alcohol or drug abuse patient.[facility]In the event this information is protected by the Federal Confidentiality of Alcohol and Drug Abuse Patient Records regulations: The Federal rules restrict any use of the information to criminally investigate or prosecute any alcohol or drug abuse patient.[facility] the event this information is protected by the Federal Confidentiality of Alcohol and Drug Abuse Patient Records regulations: The Federal rules restrict any use of the information to criminally investigate or prosecute any alcohol or drug abuse patient.[facility] the event this information is protected by the Federal Confidentiality of Alcohol and Drug Abuse Patient Records regulations: The Federal rules restrict any use of the information to criminally investigate or prosecute any alcohol or drug abuse patient.[facility]In the event this information is protected by the Federal Confidentiality of Alcohol and Drug Abuse Patient Records regulations: The Federal rules restrict any use of the information to criminally investigate or prosecute any alcohol or drug abuse patient.[facility]In the event this information is protected by the Federal Confidentiality of Alcohol and Drug Abuse Patient Records regulations: The Federal rules restrict any use of the information to criminally investigate or prosecute any alcohol or drug abuse patient.[facility]In the event this information is protected by the Federal Confidentiality of Alcohol and Drug Abuse Patient Records regulations: The Federal rules restrict any use of the information to criminally investigate or prosecute any alcohol or drug abuse patient.[facility]In the event this information is protected by the Federal Confidentiality of Alcohol and Drug Abuse Patient Records regulations: The Federal rules restrict any use of the information to criminally investigate or prosecute any alcohol or drug abuse patient.[facility]In the event this information is protected by the Federal Confidentiality of Alcohol and Drug Abuse Patient Records regulations: The Federal rules restrict any use of the information to criminally investigate or prosecute any alcohol or drug abuse patient.[facility]In the event this information is protected by the Federal Confidentiality of Alcohol and Drug Abuse Patient Records regulations: The Federal rules restrict any use of the information to criminally investigate or prosecute any alcohol or drug abuse patient.[facility]In the event this information is protected by the Federal Confidentiality of Alcohol and Drug Abuse Patient Records regulations: The Federal rules restrict any use of the information to criminally investigate or prosecute any alcohol or drug abuse patient.[facility] HospitalIn the event this information is protected by the Federal Confidentiality of Alcohol and Drug Abuse Patient Records regulations: The Federal rules restrict any use of the information to criminally investigate or prosecute any alcohol or drug abuse patient.[facility] HospitalIn the event this information is protected by the Federal Confidentiality of Alcohol and Drug Abuse Patient Records regulations: The Federal rules restrict any use of the information to criminally investigate or prosecute any alcohol or drug abuse patient.[facility]In the event this information is protected by the Federal Confidentiality of Alcohol and Drug Abuse Patient Records regulations: The Federal rules restrict any use of the information to criminally investigate or prosecute any alcohol or drug abuse patient.[facility]In the event this information is protected by the Federal Confidentiality of Alcohol and Drug Abuse Patient Records regulations: The Federal rules restrict any use of the information to criminally investigate or prosecute any alcohol or drug abuse patient.[facility] HospitalIn the event this information is protected by the Federal Confidentiality of Alcohol and Drug Abuse Patient Records regulations: The Federal rules restrict any use of the information to criminally investigate or prosecute any alcohol or drug abuse patient.[facility] HospitalIn the event this information is protected by the Federal Confidentiality of Alcohol and Drug Abuse Patient Records regulations: The Federal rules restrict any use of the information to criminally investigate or prosecute any alcohol or drug abuse patient.[facility] Reason for Visit (unrecogniz ed section and content) Reason Comments Dental Problem right side top and b ottom tooth, x 3 days Reason Onset Date Comments Refill Request 09/20/2021 Reason Onset Date Comments Refill Request 10/22/2021 Reason Comments Medication Follow-up taking daily when w orking, no side effects reported, wants to discuss anxiety, would like a slip to give to apt complex to negate pet fees Reason Onset Date Comments [facility] COVID Outreach 12/01/2021 Reason Onset Date Comments Refill Request 09/18/2021 Reason Onset Date Comments Refill Request 12/23/2021 Reason Comments Imm/Inj Hep B for nursing sc hool Reason Comments ppd read only Reason Comments PPD Read Reason Comments Imm/Inj Reason Onset Date Comments Refill Request 01/24/2022 Reason Onset Date Comments Refill Request 01/25/2022 Reason Onset Date Comments Refill Request 01/22/2022 Reason Onset Date Comments Refill Request 02/23/2022 Reason Comments Headache Nausea, fatigue x1 d ay. Reason Onset Date Comments [facility] COVID Outreach 06/30/2022 Reason Comments Sore Throat headache x 5 days Reason Comments Ear Pain Pt reported (RT) ear pain, Isaacs x3 days. Reason Comments Pain chest pain x 3-4 day s, off and on Reason Comments Vomiting Vomiting and stomach pains x 2 days Reason Comments Nausea gi upset x 1 day Reason Comments Physical Reason Comments Right Hip Pain X4 days Reason Comments Cough headache, sore throa t and nausea x 2 days, covid exposure Reason Comments Ear Pain left and sore throat x 1 day Reason Comments physical Reason Comments Thigh Pain Right pain in thigh. . No known injury. X2 days Reason Comments Headache nausea x 2 days Reason Comments Sore Throat Congestion, ISAACS, dizz iness, exposed to covid x 2 days Reason Comments Physical Needs for new job Reason Comments Nausea & Vomiting Nausea and vomiting and ISAACS x 3 days Reason Comments Sore Throat started with nasal c ongestion, drainage x 5 days Reason Comments Sore Throat Cough, chest congest ion, nasal congestion, SOB, headache, x 10 days Reason Comments Orders Care Teams (unrecognized sec tion and content) Surveillance Camera Technician Relationship Specialty Start Date End Date Unique Rivas MD [address] [place], [place] [id number] PCP - General Pediatrics 07/22/13 Surveillance Camera Technician Relationship Specialty Start Date End Date Unique Rivas MD [address] [place], [place] [id number] PCP - General Pediatrics 07/22/13 Surveillance Camera Technician Relationship Specialty Start Date End Date Unique Rivas MD [address] [place], [place] [id number] PCP - General Pediatrics 07/22/13 Surveillance Camera Technician Relationship Specialty Start Date End Date Unique Rivas MD [address] [place] [address] PCP - General Pediatrics 07/22/13 Surveillance Camera Technician Relationship Specialty Start Date End Date Unique Rivas MD [address] [place] [address] PCP - General Pediatrics 07/22/13 Surveillance Camera Technician Relationship Specialty Start Date End Date Unique Rivas MD [address] [place] [address] PCP - General Pediatrics 07/22/13 Surveillance Camera Technician Relationship Specialty Start Date End Date Unique Rivas MD [address] [place] [address] PCP - General Pediatrics 07/22/13 Surveillance Camera Technician Relationship Specialty Start Date End Date Unique Rivas MD [address] [place] [address] PCP - General Pediatrics 07/22/13 Surveillance Camera Technician Relationship Specialty Start Date End Date Unique Rivas MD [address] [place] [address] PCP - General Pediatrics 07/22/13 Surveillance Camera Technician Relationship Specialty Start Date End Date Unique Rivas MD [address] [place] [address] PCP - General Pediatrics 07/22/13 Surveillance Camera Technician Relationship Specialty Start Date End Date Unique Rivas MD [address] [place] [address] PCP - General Pediatrics 07/22/13 Team Status: Active Member Role Status Dates Reid Ortiz Family Provider Active Dr. Unique Rivas MD Primary Care Provider Active Team Status: Inactive Member Role Status Dates Dr. Unique Rivas MD Primary Care Provider Active Arnoldo Harding MD Emergency Provider Active Team Status: Inactive Member Role Status Dates Dr. Unique Rivas MD Primary Care Provider, Refer ring Provider Active Chanel Vital CONSUMER EXPERIENCE CONSULTANT, CONSUMER EXPERIENCE CONSULTANT-C Attending Provider Active Team Status: Inactive Member Role Status Dates Dr. Unique Rivas MD Primary Care Provider, Refer ring Provider Active Glendy Arvizu CNM Attending Provider Active Team Status: Inactive Member Role Status Dates Dr. Unique Rivas MD Primary Care Provider Active Arnoldo Harding MD Attending Provider, Emergency Provid er Active Team Status: Inactive Member Role Status Dates Dr. Unique Rivas MD Primary Care Provider Active Glendy Arvizu CNM Attending Provider, Referring Pro vider Active Surveillance Camera Technician Relationship Specialty Start Date End Date Unique Rivas MD [address] [place], [place] [id number] PCP - General Pediatrics 07/22/13 Surveillance Camera Technician Relationship Specialty Start Date End Date Unique Rivas MD [address] [place], [place] [address] PCP - General Pediatrics 07/22/13 Surveillance Camera Technician Relationship Specialty Start Date End Date Unique Rivas MD [address] [place], [place] [address] PCP - General Pediatrics 07/22/13 Surveillance Camera Technician Relationship Specialty Start Date End Date Marisa William, BENEFIT DIRECTOR.CROSSBOW MAKER [address] [place] [address] PCP - General Family Medicine 08/30/23 Surveillance Camera Technician Relationship Specialty Start Date End Date Marisa William, BENEFIT DIRECTOR.CROSSBOW MAKER [address] [place], [place] [id number] PCP - General Family Medicine 08/30/23 Surveillance Camera Technician Relationship Specialty Start Date End Date Marisa William APRN.[employer] MAKER [address] [place], [place] [address] [phone] PCP - General Family Medicine 08/30/23 Surveillance Camera Technician Relationship Specialty Start Date End Date Marisa William, BENEFIT DIRECTOR.CROSSBOW MAKER [address] [place] [place] [address] PCP - General Family Medicine 08/30/23 Surveillance Camera Technician Relationship Specialty Start Date End Date Marisa William, BENEFIT DIRECTOR.CROSSBOW MAKER [address] [facility] [address] PCP - General Family Medicine 08/30/23 Surveillance Camera Technician Relationship Specialty Start Date End Date Marisa William, BENEFIT DIRECTOR.CROSSBOW MAKER [address] [facility] [address] PCP - General Family Medicine 08/30/23 Surveillance Camera Technician Relationship Specialty Start Date End Date Marisa William, BENEFIT DIRECTOR.CROSSBOW MAKER [address] [facility] [address] PCP - General Family Medicine 08/30/23 Surveillance Camera Technician Relationship Specialty Start Date End Date Marisa William, BENEFIT DIRECTOR.CROSSBOW MAKER [address] [place] [place] [address] PCP - General Family Medicine 08/30/23 Surveillance Camera Technician Relationship Specialty Start Date End Date Marisa William, BENEFIT DIRECTOR.CROSSBOW MAKER [address] [facility] [address] PCP - General Family Medicine 08/30/23 Team Status: Active Member Role Status Dates Dr. Unique Rivas MD Primary Care Provider Active Team Status: Inactive Member Role Status Dates Dr. Unique Rivas MD Primary Care Provider Active Start: August 27, 2024 End: August 27, 2024 Dr. Unique Rivas MD Referring Provider Active Start: August 27, 2024 End: August 27, 2024 Dr. Nereida Garcia MD Attending Provider Active Start: August 27, 2024 End: August 27, 2024 Team Status: Inactive Member Role Status Dates Dr. Unique Rivas MD Primary Care Provider Active Start: September 16, 2024 End: September 16, 2024 Dr. Unique Rivas MD Referring Provider Active Start: September 16, 2024 End: September 16, 2024 Dr. Sarah Ravi DO Attending Provider Activ e Start: September 16, 2024 End: September 16, 2024 Team Status: Inactive Member Role Status Dates Dr. Unique Rivas MD Primary Care Provider Active Start: September 16, 2024 End: September 16, 2024 Dr. Nereida Garcia MD Attending Provider Active Start: September 16, 2024 End: September 16, 2024 Dr. Nereida Garcia MD Referring Provider Active Start: September 16, 2024 End: September 16, 2024 Team Status: Inactive Member Role Status Dates Dr. Unique Rivas MD Primary Care Provider Active Start: October 02, 2024 End: October 02, 2024 Dr. Nereida Garcia MD Attending Provider Active Start: October 02, 2024 End: October 02, 2024 Dr. Nereida Garcia MD Referring Provider Active Start: October 02, 2024 End: October 02, 2024 Team Status: Inactive Member Role Status Dates Dr. Unique Rivas MD Primary Care Provider Active Start: October 15, 2024 End: October 15, 2024 Dr. Unique Rivas MD Referring Provider Active Start: October 15, 2024 End: October 15, 2024 Chanel Vital NP, CONSUMER EXPERIENCE CONSULTANT-C Attending Provider Active Start: October 15, 2024 End: October 15, 2024 Goals (unrecognized section and content) Goals may be documented in a n alternate sectionGoals may be documented in an alternate sectionGoals may be documented in an alternate sectionGoals may be documented in an alternate sectionGoals may be documented in an alternate section INFORMATION SOURCE (unrecogn ized section and content) DATE CREATED AUTHOR 07/31/2024 [facility] DATE CREATED AUTHOR AUTHOR'S ORGANIZ ATION 10/16/2024 [facility] FOR RECORDS PERTAINING TO PATIENTS WHO ARE OR HAVE BEEN ENROLLED IN A CHEMICAL DEPENDENCY/SUBSTANCEABUSE PROGRAM, SOME INFORMATION MAY BE OMITTED. This clinical summary was aggregated from multiple sources. Caution should be exercised in using it in the provision of clinical care. This summary normalizes information from multiple sources, and as a consequence, information in this document may materially change the coding, format and clinical context of patient data. In addition, data may be omitted in some cases. CLINICAL DECISIONS SHOULD BE BASED ON THE PRIMARY CLINICAL RECORDS. [facility] [employer] provides no warranty or guarantee of the accuracy or completeness of information in this document.
[2024-11-02 10:42] LABS: Anion Gap 12 (5-15); BUN 7 mg/dL (4-19); BUN/Creat Ratio 12.9 RATIO (10-20); Calcium,Total 8.9 mg/dL (7.6-11.0); Carbon Dioxide 20.7 mmol/L (21.0-32.0); Chloride 102 mmol/L (98-108); Creatinine, Serum 0.58 mg/dL (0.70-1.20); EST Glomerular Filtration Rate 131 (>60); Glucose 87 mg/dL (70-99); Potassium 3.8 mmol/L (3.3-5.1); Sodium Level 135 mmol/L (133-145)
[2024-11-02 10:55] LABS: Bacteria 0 SEEN /hpf (None Seen); Mucous, Urine 0 SEEN /hpf (<or=2+)
[2024-11-02 11:08] LABS: hCG Titer Quant., Serum 41574 mIU/mL (<9 non-preg)
[2024-11-02 11:17] LABS: Color, Urine Red (Yellow); Glucose, Dipstick Normal (Normal); Ketone-Dipstick 5 mg/dl (Negative); Leukocyte Esterase-Dipstick 25 /ul (Negative); Nitrite-Dipstick Negative (Negative); Occult Blood-Urine 250 /ul (Negative); Protein-Dipstick 500 mg/dl (Negative); Urine Bilirubin Dipstick Negative (Negative); Urine Clarity Turbid (Clear); Urine Urobilinogen Normal (Normal)
[2024-11-02 12:06] LABS: White Blood Cells 0-5 SEEN /hpf (0-5)
[2024-11-02 12:07] LABS: Red Blood Cells-Urine > 100 SEEN /hpf (0-5); Squamous Epithelial Cells - UA 0-5 SEEN /hpf (5-10)
--- NOTE | 2024-11-02 12:31 | EDS_ITS ---
HPI HPI - Female History of Present Illness Chief Complaint: Vag Bld, Preg Informant: patient Pain Pain: Positive for Pelvic Pain Onset: Today Context: Gradual Onset Timing: Intermittent Quality: Positive for Cramping Location: Suprapubic Current Severity: 07/15 Bleeding Issue: Positive for Vaginal bleeding and Passing clots Onset: Today Context: Sudden Onset Associated Symptoms Associated Symptoms: Negative for Dysuria, Frequency or Urgency Test: Positive (Patient states she is 15 weeks ) P: 0 Ab: 0 Narrative Narrative: Patient presents with vaginal bleeding that began today. Patient states she went to the bathroom this morning. Patient states she noted some cramping and passed a moderate-sized clot. Patient states she has been having some persistent vaginal bleeding since that time. Patient denies any fevers or chills. Patient denies any nausea or vomiting. Patient states her pain is mainly over the suprapubic area. Patient states it comes and goes. Patient also admits to a mild headache. Patient states she is 15 weeks with her first . Patient admits to prior history of an ectopic . Patient states she follows with Dr. Nereida Garcia and [facility]. Patient states she was also recently diagnosed with chlamydia. Patient was given Zithromax to take at home. Patient states she was able to keep 1 pill down but vomited the second pill. Patient was unable to complete her treatment. [facility] Medical History ADHD Anxiety , ectopic, tubal Home Medications ?Medication ?Instructions ?Recorded ?Last Taken ?Type docosahexaenoic acid 200 mg mg PO 08/27/24 Unknown His tory capsule ( DHA) ondansetron HCl 4 mg tablet 4 mg PO Q4H #60 tabs 10/10 Unknown Rx azithromycin 500 mg tablet 1,000 mg (2 x 500 mg) PO ON CE #2 10/15/24 Unknown Rx tabs Allergy/AdvReac Type Severity Reaction Status Date / Time No Known Allergies Allergy Verified 10/15/24 08:33 Family History Mother Thyroid disorder Adopted Hypertension Hyperlipidemia Grandmother Hypertension Grandfather Hypertension Father Asthma Surgical History History of ectopic Social History adopted: No household members: significant other and other details: Brother & his baby current occupational status: employed current occupation: [employer] current occupational exposures/hazards: No pets and animals: Yes (Not managing litterbox) pets and animals: cat(s) and dog(s) history of recent travel: No sexually active: Yes Smoking Status: Former smoker quit date: 08/25/24 Electronic Cigarette Use: with nicotine quit status: quit date established alcohol intake: never substance use type: does not use well-balanced diet: daily or most days caffeine: Yes Type: carbonated beverages Number of servings: 1 eating out: 1-3 times/week during the past year weight has: remained stable what type of physical activity do you participate in: none christopher/pentecostal: None seatbelt use: always do you feel safe at home: Yes additional social history: BF: Fausto - [employer] ROS ROS ED Constitutional Constitutional ED: Denies chills or fever(s) Eyes Eyes: Denies blurry vision or change in vision ENT ENT ED: Denies rhinorrhea or sore throat Cardiovascular Cardiovascular: Denies chest pain or palpitations Respiratory/Chest Respiratory/Chest: Denies cough or dyspnea Gastrointestinal Gastrointestinal: Reports abdominal pain; Denies nausea or vomiting Genitourinary Genitourinary ED: Denies dysuria or urinary frequency Musculoskeletal Musculoskeletal: Denies back pain or neck pain Integumentary Denies abscess or rash Neurologic Neurologic: Reports headache(s); Denies weakness Allergic/Immunologic Allergic/Immunologic ED: Denies mouth swelling or urticaria EXAM Physical Exam Const Vital Signs: 11/02/24 09:08 11/02/24 13:00 11/02/24 15:00 Temperature 97.6 F L Temperature Source Temporal Pulse Rate 107 H 65 68 Respiratory Rate 18 14 16 Blood Pressure 130/78 H 128/66 H 122/72 H Blood Pressure Mean 95 86 88 Pulse Ox 99 99 98 Oxygen Delivery Method Room Air 11/02/24 15:25 Temperature 98.3 F Temperature Source Pulse Rate 68 Respiratory Rate 16 Blood Pressure 122/72 H Blood Pressure Mean 88 Pulse Ox 98 Oxygen Delivery Method Positive well nourished and well developed General Appearance ED: well developed and NAD HEENT Reports moist mucous membranes Neck supple and no JVD Resp normal respiratory effort and clear to auscultation bilaterally Cardio regular rate and regular rhythm GI soft to palpation and non-distended Palpation: tender suprapubic (Mild) Extremity full ROM General Extremety ED: Negative for edema or tenderness General Extremity: Negative for edema Neuro oriented x3, CN's II-XII intact bilaterally and no sensory deficits noted Sensorium / Orientation: alert Motor Exam: strength 5/5 throughout Psych mental status grossly normal MDM MDM MDM Narrative Medical decision making narrative: Differential diagnosis includes ectopic , threatened miscarriage, incomplete miscarriage, urinary tract infection, and electrolyte abnormality. Pelvic ultrasound will be obtained to assess for incomplete miscarriage and threatened miscarriage and ectopic . CBC will be obtained to assess for leukocytosis and anemia. Basic metabolic profile will be obtained to assess for electrolyte abnormality renal function. Quantitative hCG will be obtained to assess for . Urinalysis will be obtained to assess for urinary tract infection. History & Record Review Additional record(s) reviewed:: Prior outpatient record and Prior labs Lab Data Attestation: I reviewed the patient's lab results. Lab results narrative: CBC was reviewed and was essentially within normal limits. Basic metabolic profile was reviewed and was within normal limits. [place] [address]. Urinalysis was reviewed. Occult blood was 250 with greater than 100 red blood cells. There is no evidence of urinary tract infection. Labs: Laboratory Results - last 24 hr 11/02/24 11/02/24 09:31 10:50 WBC 8.7 RBC 4.01 L Hgb 12.2 Hct 34.9 L MCV 87.0 MCH 30.4 MCHC 35.0 RDW Std Deviation 45.3 H RDW Coeff of Fazal 14.2 Plt Count 278 MPV 11.7 Immature Gran % (Auto) 0.200 Neut % (Auto) 59.1 Lymph % (Auto) 29.1 [place] % (Auto) 9.6 Eos % (Auto) 1.4 Baso % (Auto) 0.6 Absolute Neuts (auto) 5.1 Absolute Lymphs (auto) 2.52 Nucleated RBC % 0 Sodium 135 Potassium 3.8 Chloride 102 Carbon Dioxide 20.7 L Anion Gap 12 BUN 7 Creatinine 0.58 L Estim Creat Clear Calc 128.10 Est GFR (MDRD) Non-Af 131 BUN/Creatinine Ratio 12.9 Glucose 87 Calcium 8.9 HCG, Quant 52262 H Urine Color Red Urine Clarity Turbid Urine pH 7.0 Ur Specific [place] 1.010 Urine Protein 500 H Urine Glucose (UA) Normal Urine Ketones 5 H Urine Occult Blood 250 H Urine Nitrite Negative Urine Bilirubin Negative Urine Urobilinogen Normal Ur Leukocyte Esterase 25 H Urine RBC > 100 SEEN Urine WBC 0-5 SEEN Ur Squamous Epith Cells 0-5 SEEN Urine Bacteria 0 SEEN Urine Mucus 0 SEEN Radiography Diagnostic Testing: Clinical Impression(s) from Imaging Studies Obstetrics Ultrasound 11/02/24 10:02 IMPRESSION: rounded, 4 cm, potential lesion, covering the cervical os. A form of placenta previa can not be excluded. If it is previa, could be succenturiate placental lobe, but precise etiology is unknown. Level of certainty in the above diagnosis is low. Maternal- medicine in [facility] consult may be considered Reading Location: [facility] Pelvic ultrasound was obtained. There is a rounded 4 cm potential lesion covering the cervical os. A form of placenta previa could not be excluded. There is a single live intrauterine measuring 15 weeks 3 days. There is no evidence of ectopic . heart rate was 166. This was interpreted by the radiologist and was also independently reviewed by myself. Treatment and Re-Evaluation Narrative: Patient was given IV fluids and Zofran. Patient was given a dose of Zithromax here to complete her treatment for chlamydia. Patient was instructed on complete vaginal rest. Patient was instructed to avoid intercourse, tampons, and douching. Patient was instructed to follow-up with [facility] in 2 days. Patient was instructed to return if worse in any way. Patient understood and was agreeable with the plan. All questions were answered. Discharge Plan Triage Chief Complaint: Vag Bld, Preg ED Provider: Mike Dill Dx/Rx/DC Orders Clinical Impression: Threatened miscarriage, Chlamydia infection affecting Instructions: Miscarriage Threatened Prescriptions: No Action DHA 200 mg capsule PO azithromycin 500 mg tablet 1,000 mg PO ONCE Qty: 2 0RF ondansetron HCl 4 mg tablet 4 mg PO Q4H Qty: 60 3RF Primary Care Provider: Marisa William Referrals: Nereida Garcia MD [Med Staff - Active Staff] - 2 Days Marisa William, NOVELTIES SALES REPRESENTATIVE-C [Primary Care Provider] - 2 Days Print Language: French Disposition Disposition: Home, Self Care Discharge Date/Time: 11/02/24 15:25
[2024-11-02 13:00] VITALS: BP 128/66; PULSE 65; RESP 14; O2SAT 99
--- NOTE | 2024-11-02 14:09 | ED.RN ---
Multiple conversations with US about read for test. Told an hour ago it would be 20 min. now being told that they are currently reading it.
[2024-11-02 15:00] VITALS: BP 122/72; PULSE 68; RESP 16; O2SAT 98
[2024-11-02] MEDS: Azithromycin 250 MG Tablet 1000 MG PO (15:20)
[2024-11-02 15:25] VITALS: BP 122/72; PULSE 68; RESP 16; TEMP 36.8; O2SAT 98
== END 2024-11-02 15:25 | disposition home or self-care (01) ==
PROVIDERS: Emergency Provider Emergency Medicine; PCP Nurse Practitioner Family; Visit Provider Emergency Medicine
DX: O20.0 Threatened abortion (principal); O98.312 Other infections with a predominantly sexual mode of transmission complicating pregnancy, second trimester; A74.9 Chlamydial infection, unspecified; O99.891 Other specified diseases and conditions complicating pregnancy; R51.9 Headache, unspecified; R93.89 Abnormal findings on diagnostic imaging of other specified body structures; Z3A.15 15 weeks gestation of pregnancy; Z87.59 Personal history of other complications of pregnancy, childbirth and the puerperium; Z87.891 Personal history of nicotine dependence
CPT/HCPCS: 76816; 80048; 81001; 84702; 85025; 96360; 96361; 99283; A4216; J2405

== ENCOUNTER → 2024-11-14 | Outpatient (CLI) | payer SELFPAY ==
[2024-11-18 22:07] LABS: Chlamydia By Nucleic Acid AMP Negative (Negative); Gonococcus By Nucleic Acid AMP Negative (Negative)
== END | disposition home or self-care (01) ==
LOC: LABSPEC 15:39
PROVIDERS: PCP Nurse Practitioner Family; Referring Provider Advanced Practice Midwife; Visit Provider Advanced Practice Midwife
DX: O98.811 Other maternal infectious and parasitic diseases complicating pregnancy, first trimester (principal); A74.9 Chlamydial infection, unspecified; Z3A.00 Weeks of gestation of pregnancy not specified
CPT/HCPCS: 87491; 87591

== ENCOUNTER → 2025-01-09 | Outpatient (CLI) | payer MEDICAID, SELFPAY ==
[2025-01-09 11:46] LABS: ROM Internal Control Test YES-OK TO RESULT pt. (Internal QC); ROM Patient Test Negative (Negative); Record Kit Lot#, ROM+ K3358
--- OUTSIDE RECORDS SUMMARY | 2025-01-09 18:56 | XMS RPT_ITS | CCD ---
Author Organization [facility] Care Team Providers Care Marble Worker Name Role Phone Unique Rivas MD Primary Care Provider Dr. Unique Rivas Primary Care Provider Dr. Unique Rivas Referring Provider Zahraa JOHNSON, DEBORAH Buchanan Attending Provider [phone] NURYS Arvizu Attending Provider [phone] Unique Rivas MD Primary Care Provider Stewart AIRPLANE PILOT.Marisa RAHMAN Primary Care Provider Stewart AIRPLANE PILOT.Marisa RAHMAN Primary Care Prov ider MARISA WILLIAM Primary Care Unavailabl e MARISA WILLIAM Attending Unavailabl e STEWART, MARISA ORTIZ Primary Care Unavailabl e WILLIAM, MARISA ORTIZ Primary [facility] Unavailabl e WILLIAM, MARISA ORTIZ Primary [facility] Unavailabl e WILLIAM, MARISA ORTIZ Primary [facility] Unavailabl e STEWART, MARISA ORTIZ Attending Unavailabl e STEWART, MARISA ORTIZ Primary Care Unavailabl e WILLIAM, MARISA ORTIZ Primary [facility] Unavailabl e WILLIAM, MARISA ORTIZ Primary [facility] Unavailabl e Dr. Unique Rivas MD Primary Care Provider Dr. Unique Rivas MD Referring Provider Dr. Nereida Garcia MD Attending Provider Dr. Sarah Ravi DO Attending Provider Dr. Nereida Garcia MD Referring Provider Zahraa JOHNSON-CNegrita Attending Provider Stewart RECYCLING SORTER-C, Marisa Ortiz Primary Care Provider Dr. Mike Dill DO Emergency Provider [phone] Dr. Mike Dill DO Attending Provider Glendy Arvizu CNM Attending Provider Glendy Arvizu CNM Referring Provider Unavailable Primary Care Provider Unavailabl e Zahraa RECYCLING SORTERNegrita Attending Unavailable Seifried, Unique Referring Unavailable Seifried, Unique Primary Care Unavailable William, Marisa Ortiz Primary Care Unavailabl e Glendy Arvizu Attending Unavailable Seifried, Unique Referring Unavailable Raul Arizmendi Attending Unavailable Seifried, Unique Primary Care Unavailable Seifried, Unique Referring Unavailable Seifried, Unique Primary Care Unavailable Sarah Ravi Attending Unavailabl e Seifried, Unique Referring Unavailable William, Marisa Angel Primary Care Unavailabl e Mike Dill Attending Unavailable Seifried, Unique Primary Care Unavailable Raul Arizmendi Attending Unavailable Raul Arizmendi Referring Unavailable Glendy Arvizu Referring Unavailable William, Marisa Angel Primary Care Unavailabl e Glendy Arvizu Attending Unavailable Nereida Garcia Attending Unavailable EddanthonyNereida Referring Unavailable Seifried, Unique Primary Care Unavailable Nereida Garcia Attending Unavailable EddanthonyNereida Referring Unavailable Seifried, Unique Primary Care Unavailable William, Marisa Ortiz Primary Care Unavailabl e Sarah Ravi Attending Unavailabl e Seifried, Unique Referring Unavailable Seifried, Unique Primary Care Unavailable Nereida Garcia Attending Unavailable Seifried, Unique Referring Unavailable SUBITGATO Referring Unavailable SUBIT, GATO Oconnor Attending Unavailable SUBITGATO Admitting Unavailable SARAH LACEY Attending Unavailable SEIDOWSKI, UNIQUE A Primary Care Unavailable ZAHRAA, NEGRITA S Referring Unavailable SEIDOWSKI, UNIQUE A Primary Care Unavailable ZAHRAA, NEGRITA S Referring Unavailable ZAHRAA, NEGRITA S Attending Unavailable NO, PHYSICIAN Primary Care Unavailable AUTUMN DELEON Attending Unavailable Dr. Unique Rivas MD Primary Care Provider Dr. Unique Rivas MD Referring Provider Radha COX, Dr. Padron Attending Provider Medications Current Medications Medication Drug Class(es) Dates [...] on above: Take 2 tablets by mo [facility] every 6 hours as needed for pain [...] on above: Take 1 tablet by georgina two times a day for 7 days. amoxicillin 875 mg / clavulanate 125 mg oral tablet (1 source) Penicillin-class Antibacterial Start: 07-06-2024 End: 07-11-2024 take 1 tablet by mouth twice daily amoxicillin-clavulan ate potassium (AUGMENTIN) 875-125 mg per tablet Take 1 tablet by mouth two times a day for 5 days. 10 tablet 07/06/2024 07/11/2024 Active cetirizine hydrochloride 10 mg oral tablet (1 source) Histamine-1 Receptor Antagonist Start: 10-25-2022 End: 11-01-2022 take 1 tablet by mouth once daily cetirizine (ZYRTEC) 10 mg tablet Take 1 tablet by mouth once daily for 7 days. 7 tablet 0 10/25/2022 11/01/2022 Active Comment on above: Take 1 tablet by georgina once daily for 7 days. docosahexaenoic acid 200 mg oral capsule (8 sources) Start: 08-27-2024 Docosahexaenoic Acid ( Dha) [...] on above: Take 1 tablet by georgina every 6 hours as needed for pain for up to 15 days. Take 1.5 tablets by mouth three times a day for 10 days. Tutuilla (Nk) (1 source) Start: Tutuilla (Nk) Active February 13, 2023 12:00am ondansetron 4 mg oral tablet (19 sources) Serotonin-3 Receptor Antagonist Start: take 1 tablet by mouth every four hours Ondansetron Hcl 4 mg tablet Active 4 mg PO Q4H 60 3 October 10, 2024 12:00am Start: 04-06-2023 End: [...] HOURS as needed for nausea and vomiting 10 January 30, 2023 12:00am February 13, 2023 [...] Drug Class(es) Dates Sig (Normalized) Sig (Original) azithromycin 500 mg oral tablet (19 sources) Macrolide Antimicrobial Start: 09-19-2024 End: 11-14-2024 take 2 tablets by mouth once Azithromycin 500 mg tablet Discontinued 1000 mg PO ONCE 2 0 October 10, 2024 10:09am October 15, 2024 8:45am etonogestrel 68 mg drug implant (20 sources) [...] oute. ONCE Etonogestrel (Nexplanon) 68 mg implant (8 sources) Start: 2023 End: 2024 Etonogestrel (Nexplanon) [...] 09, 2020 12:00am February 13, 2023 1:33pm adhd Comment on above: Take 1 capsule by mo ut once daily for 30 days. Take 1 capsule by mo ut every morning for 30 days. Do not start before October 20, 2021. Take 1 capsule by mo ut every morning for 30 days. Do not start before November 19, 2021. Take 1 capsule by [facility] once daily for 30 days. Do not start before January 08, 2022. naproxen 250 mg oral tablet (10 sources) Nonsteroidal Anti-inflammatory Drug Start: 09-10-19 End: 09-15-19 take 250-500 mg by mouth every eight hours as needed for pain Naproxen 250 MG tablet Discontinued 250 - 500 mg PO EVERY 8 HOURS NEEDED as needed for MILD PAIN 30 1 September 09, 2020 12:00am September 14, 2020 2:15pm oxyCODONE hydrochloride 5 mg oral capsule (10 sources) Opioid Agonist Start: 09-10-19 End: 09-11-19 take 1 capsule by mouth every six hours as needed for pain Oxycodone 5 mg capsule Discontinued 5 mg PO EVERY 6 HOURS as needed for pain 10 7 0 September 09, 2020 September 10, 2020 4:32pm Tubal ectopic Right tubal without intrauterine Problems Active Problems Problem Classification Problem Date Documented Da te Episodic/Chronic Anxiety disorders (20 sources) Anxiety; Translations: [Anxiety disorder, unspecified] Onset: 10-05-2012 10-05-2012 Chronic Comment on above: No meds Attention-deficit, conduct, and disruptive behavior disorders (20 sources) Attention deficit hyperactivity disorder; Translations: [Attention-deficit hyperactivity disorder, unspecified type] Onset: 02-05-2009 02-05-2009 Chronic Comment on above: No meds currently; [employer] in [employer] school Attention-deficit, conduct, and disruptive behavior disorders (1 source) Attention deficit hyperactivity disorder, predominantly inattentive type; Translations: [Attention-deficit hyperactivity disorder, predominantly inattentive type] Chronic Attention-deficit, conduct, and disruptive behavior disorders (1 source) Attention-deficit hyperactivity disorder, unspecified type; Translations: [Attention-deficit hyperactivity disorder, unspecified type] Onset: 11-14-2024 Chronic Bacterial infection; unspecified site (1 source) Chlamydial infection, unspecified; Translations: [Chlamydial infection, unspecified] Onset: 11-14-2024 Episodic Complications of surgical procedures or medical care (10 sources) Drug therapy finding; Translations: [Unspecified adverse effect of drug or medicament, initial encounter] 01-30-2023 Episodic Contraceptive and procreative management (20 sources) Patient encounter status; Translations: [Encounter for contraceptive management, unspecified] 09-14-2020 Episodic Comment on above: abena AGUDELO sent Deficiency and other anemia (10 sources) Anemia; Translations: [Anemia, unspecified] 09-09-2020 Episodic Comment on above: tranfuse 2 u PRBC wi th 2 additional unit on hold Disorders of teeth and jaw (1 source) Toothache; Translations: [Other specified disorders of teeth and supporting structures] Episodic Ectopic (10 sources) Tubal ; Translations: [Unspecified tubal without intrauterine ] 09-09-2020 Episodic Comment on above: right ovarian Genitourinary symptoms and ill-defined conditions (1 source) Dysuria; Translations: [Dysuria] Onset: 11-14-2024 Episodic Headache; including migraine (2 sources) Headache; Translations: [Headache, unspecified headache type] Episodic Hemorrhage during ; abruptio placenta; placenta previa (5 sources) Threatened miscarriage; Translations: [Threatened ] 11-02-2024 Episodic Immunizations and screening for infectious disease (9 sources) Suspected disease caused by 2019-nCoV; Translations: [Suspected 2019 novel coronavirus infection] Episodic Nausea and vomiting (12 sources) Nausea, vomiting and diarrhea; Translations: [Nausea with vomiting, unspecified] 01-24-2023 Episodic Nonspecific chest pain (2 sources) Other chest pain; Translations: [Other chest pain] Onset: 12-19-2024 Episodic Other bone disease and musculoskeletal deformities (1 source) Costal chondritis; Translations: [Chondrocostal junction syndrome [Tietze]] 01-19-2023 Episodic Other circulatory disease (10 sources) Bleeding; Translations: [Hemorrhage, not elsewhere classified] 09-08-2020 Episodic Other complications of (20 sources) High risk ; Translations: [Supervision of high risk , unspecified, unspecified trimester] 08-27-2024 Episodic Comment on above: , KELTON 04/23/25, BF: Fausto [id number], KELTON 5, BF: Fausto Other complications of (19 sources) Chlamydia trachomatis infection in ; Translations: [Other maternal infectious and parasitic diseases complicating , unspecified trimester] 10-15-2024 Episodic Comment on above: + @ NOB. + @ NOB. Treated and vomited med. [place] [facility] sent and zofram prior. Other complications of (1 source) Other maternal infectious and parasitic diseases complicating , first trimester; Translations: [Other maternal infectious and parasitic diseases complicating , first trimester] Onset: 12-06-2024 Episodic Other complications of (1 source) Supervision of high risk , unspecified, second trimester; Translations: [Supervision of high risk , unspecified, second trimester] Onset: 11-14-2024 Episodic Other complications of (1 source) Supervision of high risk , unspecified, unspecified trimester; Translations: [Supervision of high risk , unspecified, unspecified trimester] Onset: 12-13-2024 Episodic Other connective tissue disease (2 sources) Pain in right lower limb; Translations: [Pain in right leg] 11-03-2023 Episodic Other connective tissue disease (1 source) Pain in right leg; Translations: [Right leg pain] Onset: 05-10-2024 Episodic Other female genital disorders (10 sources) Abnormal uterine bleeding; Translations: [Abnormal uterine and vaginal bleeding, unspecified] 01-20-2022 Chronic Other female genital disorders (1 source) Abnormal uterine and vaginal bleeding, unspecified; Translations: [Abnormal uterine and vaginal bleeding, unspecified] Onset: 11-07-2024 Chronic Other gastrointestinal disorders (10 sources) Hemorrhage into peritoneal cavity; Translations: [Hemoperitoneum] 09-14-2020 Episodic Comment on above: CT ordered- done and surgical postop findings noted Other non-traumatic joint disorders (1 source) Hip pain; Translations: [Pain in right hip] 04-20-2023 Episodic Other and delivery including normal (20 sources) ; Translations: [Encounter for supervision of [...] hypothyroidism] Onset: 05-10-2024 Episodic Residual codes; unclassified (20 sources) H/O: ectopic ; Translations: [Personal history of other complications of , childbirth and the puerperium] 09-16-2024 Episodic Comment on above: 09/08/20 - surgery b y SM, was in right ovary and still has both tubes. Residual codes; unclassified (1 source) Personal history of other complications of , childbirth and the puerperium; Translations: [Personal history of other complications of , childbirth and the puerperium] Onset: 11-14-2024 Episodic Residual codes; unclassified (1 source) 17 weeks gestation of ; Translations: [17 weeks gestation of ] Onset: 11-14-2024 Episodic Substance-related disorders (20 sources) Smoker; Translations: [Nicotine dependence, unspecified, uncomplicated] Onset: 11-14-2024 08-27-2024 Chronic Comment on above: Last smoke: 08/25, Ex posed to second hand Unclassified (1 source) No additional problems on file Unclassified (2 sources) Other; Translations: [Other] Onset: 12-10-2024 Past or Other Problems Problem Classification Problem [...] Test Name Value Interpretation Reference Range Facility ED Prov Noteon 12-19-2024 ED Prov Note [facility] EMERGENCY [facility] ATTENDING NOTE: NAME: Nan Meyers CSN: [id number] 24 y.o. PCP: No, Physician History: Chief Complaint: No chief complaint on file. HPI: The history was obtained from the patient. Nan is a 24 y.o. female who presents with a chief complaint of left-sided chest pain that happened once last night and what happened this morning, 1 second and was: Also took her breath away. Has no pain right now PMHx: History reviewed. No pertinent past medical history. PMSx: History reviewed. No pertinent surgical history. FAM. Hx: History reviewed. No pertinent family history. SOC. Hx: Social History [1] MEDs: No current outpatient medications on file prior to encounter. ALL: Allergies[2] ROS: Review of Systems Positives and pertinent negatives as per HPI. All other systems were reviewed and are negative. Physical Exam: Patient Vitals for the past 24 hrs: BP Temp Temp src Pulse Resp SpO2 Height Weight 12/19/24 0902 128/78 97.5 degrees F (36.4 degrees C) Oral 95 16 97 % 5' 1 69.9 kg (154 lb) Physical Exam Vitals and nursing note reviewed. Cardiovascular: Rate and Rhythm: Normal rate. Pulmonary: Effort: Pulmonary effort is normal. Abdominal: Palpations: Abdomen is soft. Comments: Gravid uterus 22 weeks Skin: General: Skin is warm. Neurological: General: No focal deficit present. Mental Status: She is alert. Laboratory & Radiological Imaging (if done): Labs Reviewed POC CBC AND DIFFERENTIAL - Abnormal; Notable for the following components: Result Value RBC 3.62 (*) Hemoglobin 10.6 (*) Hematocrit 31.5 (*) All other components within normal limits POC BASIC METABOLIC PANEL - RALS - Abnormal; Notable for the following components: Potassium 3.4 (*) All other components within normal limits Narrative: [facility] has implemented the eGFR calculation approach that does not have a coefficient for race that conforms to the NKF-ASN Task Force Recommendations. POC D-DIMER RALS - Abnormal; Notable for the following components: POC D-Dimer 797 (*) All other components within normal limits Narrative: A D-Dimer concentration of <350 ng/mL DDU is considered a low probability for pulmonary embolism (PE) and deep venous thrombosis (DVT). Results of this test should always be interpreted in conjunction with the patient's medical history, clinical presentation, and other findings. Clinical diagnosis should not be based on the results of the D-dimer alone. The above D-dimer cutoff pertains to its use for the exclusion of DVT or PE. The range associated with other clinical conditions (e.g. sepsis) has not been validated for this method. 90% of normal patients are less than 400 ng/ml. POC TROPONIN I RALS - Normal POC D-DIMER POC BASIC METABOLIC PANEL POC TROPONIN I No orders to display Procedures: EKG 12-lead Date/Time: 12/19/2024 10:28 AM Performed by: Autumn Deleon MD Authorized by: Autumn Deleon MD Interpreted by ED attending physician Rhythm: sinus rhythm BPM: 77 Conduction: conduction normal ST Segments: ST segments normal ED Course / Medical Decision Making: I did personally review Nan's past medical history, surgical history, social history, as well as family history (when relevant). In this case, I also oversaw the her drug management by reviewing her medication list, allergy list, as well as the medications that I prescribed during the ED course and/or recommended as an out-patient (including possible OTC medications such as acetaminophen, NSAIDs , etc). Her past medical problem list included: Active Ambulatory Problems Diagnosis Date Noted No Active Ambulatory Problems Resolved Ambulatory Problems Diagnosis Date Noted No Resolved Ambulatory Problems No Additional Past Medical History ED MEDICATIONS GIVEN: Medications sodium chloride (PF) (NS) flush 5 mL (has no administration in time range) And sodium chloride 0.9% (NS) (has no administration in time range) After reviewing the items above, I did not look at previous medical documentation, such as recent hospitalizations, office visits, and/or recent consultations with PCP/specialist. SDOH: Another factor that I considered in Nan's care was her Social Determinants of Health (SDOH). During this ED encounter, she did NOT appear to have any significant issues identified. ED COURSE: My differential diagnosis Acute pulmonary embolism acute acid reflux acute gastritis I ordered a CBC chemistry and a D-dimer on the patient following which further disposition will be done Patient CBC chemistry troponin unremarkable D-dimer of 797 and patient being 22 weeks with gestational age adjusted D-dimer is unremarkable. At this time patient was reassured and discharged to home . Clinical Impression: 1. Chest pain, atypical Disposition: ED Disposition ED Disposit (more content not included)... Normal [facility] POC BASIC METABOLIC PANEL [facility] 12-19-2024 Chloride [Moles/Vol] 104 mmol/L Normal 98-108 [facility] Comment on above: Order Comment: [facility] has implemented the eGFR calculation approach that does not have a coefficient for race that conforms to the NKF-ASN Task Force Recommendations. Performed By: #### P [id number] #### ONED FSED POCT LAB [address] [address] Dejan Barajas.OLeonela [id number] CO2 [Moles/Vol] 23 mmol/L Normal 21-32 [facility] Comment on above: Order Comment: [facility] has implemented the eGFR calculation approach that does not have a coefficient for race that conforms to the NKF-ASN Task Force Recommendations. Performed By: #### P [id number] #### ONED FSED POCT LAB [address] [id number] Dejan Barajas.O. [id number] Creatinine [Mass/Vol] 0.72 mg/dL Normal 0.40-1.10 [facility] Comment on above: Order Comment: [facility] has implemented the eGFR calculation approach that does not have a coefficient for race that conforms to the NKF-ASN Task Force Recommendations. Performed By: #### P [id number] #### ONED FSED POCT LAB [address] [id number] Dejan Barajas.OLeonela [id number] Glucose [Mass/Vol] 88 mg/dL Normal 65-99 [facility] Comment on above: Order Comment: [facility] has implemented the eGFR calculation approach that does not have a coefficient for race that conforms to the NKF-ASN Task Force Recommendations. Performed By: #### P [id number] #### ONED FSED POCT LAB [address] [address] Dejan Barajas.OLeonela [id number] POC GFR 121 mL/min/1.73 m2 Normal >=60 [facility] Comment on above: Order Comment: [facility] has implemented the eGFR calculation approach that does not have a coefficient for race that conforms to the NKF-ASN Task Force Recommendations. Result Comment: Anastasiia mated GFR was calculated using the 2020 CKD-EPI creatinine equation. Performed By: #### P [id number] #### ONED FSED POCT LAB [address] [id number] Osiel Nelson D.OLeonela [id number] POC IONIZED CALCIUM 4.7 mg/dL Normal 4.5-5.3 [facility] Comment on above: Order Comment: [facility] has implemented the eGFR calculation approach that does not have a coefficient for race that conforms to the NKF-ASN Task Force Recommendations. Performed By: #### P [id number] #### ONED FSED POCT LAB [address] [id number] Dejan Barajas.OLeonela [id number] Potassium [Moles/Vol] 3.4 mmol/L Low 3.5-5.1 [facility] Comment on above: Order Comment: [facility] has implemented the eGFR calculation approach that does not have a coefficient for race that conforms to the NKF-ASN Task Force Recommendations. Performed By: #### P [id number] #### ONED FSED POCT LAB [address] [address] Dejan Barajas.OLeonela [id number] Sodium [Moles/Vol] 139 mmol/L Normal 135-145 [facility] Comment on above: Order Comment: [facility] has implemented the eGFR calculation approach that does not have a coefficient for race that conforms to the NKF-ASN Task Force Recommendations. Performed By: #### P [id number] #### ONED FSED POCT LAB [address] [address] Dejan Barajas.OLeonela [id number] Urea nitrogen [Mass/Vol] 8 mg/dL Normal 8-25 [facility] Comment on above: Order Comment: [facility] has implemented the eGFR calculation approach that does not have a coefficient for race that conforms to the NKF-ASN Task Force Recommendations. Performed By: #### P [id number] #### ONED FSED POCT LAB [address] [address] Dejan Barajas.OLeonela [id number] POC CBC AND DIFFERENTIALon 0 12-19-2024 BASOPHILS ABSOLUTE COUNT 0.04 K/mcL Normal 0.00-0.30 [facility] Comment on above: Performed By: #### L [id number] #### ONED FSED POCT LAB [address] [address] Dejan Barajas.OLeonela [id number] Basophils/100 WBC (Bld) 0.4 % Normal [facility] Comment on above: Performed By: #### L [id number] #### ONED FSED POCT LAB [address] [address] Dejan Barajas.OLeonela [id number] Eosinophils (Bld) [#/Vol] 0.10 10*3/uL Normal 0.00-0.50 [facility] Comment on above: Performed By: #### L [id number] #### ONED FSED POCT LAB [address] [address] Dejan Barajas.OLeonela [id number] Eosinophils/100 WBC (Bld) 1.1 % Normal [facility] Comment on above: Performed By: #### L [id number] #### ONED FSED POCT LAB [address] [address] Dejan Barajas.OLeonela [id number] Erythrocyte distribution width (RBC) [Ratio] 13.3 % Normal 11.6-14.8 [facility] Comment on above: Performed By: #### L [id number] #### ONED FSED POCT LAB [address] [address] Dejan Barajas.OLeonela [id number] Hematocrit (Bld) [Volume fraction] 31.5 % Low 36.0-46.0 [facility] Comment on above: Performed By: #### L [id number] #### ONED FSED POCT LAB [address] [address] Dejan Barajas.OLeonela [id number] Hemoglobin (Bld) [Mass/Vol] 10.6 g/dL Low 12.0-16.0 [facility] Comment on above: Performed By: #### L [id number] #### ONED FSED POCT LAB [address] [address] Dejan Barajas.OLeonela [id number] IG ABSOLUTE 0.04 K/mcL Normal 0.00-0.30 [facility] Comment on above: Performed By: #### L [id number] #### ONED FSED POCT LAB [address] [address] Yelena BarajasOLeonela [id number] IG PERCENT 0.40 % Normal [facility] Comment on above: Result Comment: The IG parameter is the percentage of metamyelocytes, myelocytes and promyelocytes. An immature granulocyte count (IG) of 1% or more suggests the possibility of infection, an IG count of 3% is very likely related to an infection. Performed By: #### L [id number] #### ONED FSED POCT LAB [address] [address] Osiel Nelson D.O. [id number] Lymphocytes (Bld) [#/Vol] 1.89 10*3/uL Normal 0.90-4.00 [facility] Comment on above: Performed By: #### L [id number] #### ONED FSED POCT LAB [address] [address] Osiel Nelson D.O. [id number] Lymphocytes/100 WBC (Bld) 19.9 % Normal [facility] Comment on above: Performed By: #### L [id number] #### ONED FSED POCT LAB [address] [address] Osiel Nelson D.O. [id number] MCH (RBC) [Entitic mass] 29.3 pg Normal 26.0-34.0 [facility] Comment on above: Performed By: #### L [id number] #### ONED FSED POCT LAB [address] [address] Osiel Nelson D.O. [id number] MCV (RBC) [Entitic vol] 87.0 fL Normal 80.0-100.0 G [facility] Comment on above: Performed By: #### L [id number] #### ONED FSED POCT LAB [address] [address] Osiel Nelson D.O. [id number] MEAN CORPUSCULAR HEMOGLOBIN CONC 33.7 g/dL Normal 31.0-37.0 [facility] Comment on above: Performed By: #### L [id number] #### ONED FSED POCT LAB [address] [address] Osiel Nelson D.O. [id number] Monocytes (Bld) [#/Vol] 0.76 10*3/uL Normal 0.30-0.90 [facility] Comment on above: Performed By: #### L [id number] #### ONED FSED POCT LAB [address] [id number] Osiel Nelson D.O. [id number] Monocytes/100 WBC (Bld) 8.0 % Normal [facility] Comment on above: Performed By: #### L [id number] #### ONED FSED POCT LAB [address] [id number] Osiel Nelson D.O. [id number] NEUTROPHILS ABSOLUTE COUNT 6.65 K/mcL Normal 1.70-7.00 [facility] Comment on above: Performed By: #### L [id number] #### ONED FSED POCT LAB [address] [address] Osiel Nelson D.O. [id number] Neutrophils/100 WBC (Bld) 70.2 % Normal [facility] Comment on above: Performed By: #### L [id number] #### ONED FSED POCT LAB [address] [address] Osiel Nelson D.O. [id number] Platelet mean volume (Bld) [Entitic vol] 11.3 fL Normal 9.4-12.4 [facility] Comment on above: Performed By: #### L [id number] #### ONED FSED POCT LAB [address] [address] Dejan Barajas.O. [id number] Platelets (Bld) [#/Vol] 294 10*3/uL Normal 150-400 [facility] Comment on above: Performed By: #### L [id number] #### ONED FSED POCT LAB [address] [id number] Osiel Nelson D.O. [id number] RBC (Bld) [#/Vol] 3.62 10*6/uL Low 4.00-5.20 [facility] Comment on above: Performed By: #### L [id number] #### ONED FSED POCT LAB [address] [address] Osiel Nelson D.O. [id number] WBC (Bld) [#/Vol] 9.48 10*3/uL Normal 4.50-11.00 [facility] Comment on above: Performed By: #### L [id number] #### ONED FSED POCT LAB [address] [address] Osiel Nelson D.O. [id number] POC D-DIMER [facility] POC D-DIMER 797 ng/mL DDU High <350 [facility] Comment on above: Order Comment: A D-D charly concentration of <350 ng/mL DDU is considered a low probability for pulmonary embolism (PE) and deep venous thrombosis (DVT). Results of this test should always be interpreted in conjunction with the patient's medical history, clinical presentation, and other findings. Clinical diagnosis should not be based on the results of the D-dimer alone. The above D-dimer cutoff pertains to its use for the exclusion of DVT or PE. The range associated with other clinical conditions (e.g. sepsis) has not been validated for this method. 90% of normal patients are less than 400 ng/ml. Performed By: #### [id number] #### ONED FSED POCT LAB [address] [address] Osiel Nelson D.O. [id number] POC TROPONIN I [facility] 2024 POC TROPONIN I < Normal <0.05 [facility] Comment on above: Performed By: #### 4 [id number] #### ONED FSED POCT LAB [address] [address] Osiel Nelson D.O. [id number] Laboratory - Chemistry and C hemistry - challengeOrdered By: Sarah Ramos on 12-12-2024 Glucose Ql (U) Negative [facility] Laboratory - UrinalysisOrder ed By: Sarah Ramos on 12-12-2024 Protein Ql (U) Negative [facility] Funeral Planning Counselor Office Visit Reporton 12-12-2024 Funeral Planning Counselor Office Visit Report [address], [address] [place] [address] OFFICE VISIT Date of Service: 12/12/24 MR#: [id number] Acct: [id number] Name: NAN MEYERS Rep #: [id number] : 2000 Provider: Dr. 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: No Is patient in pain?: No Allergies No Known Allergies Allergy (Verified 12/12/24 13:20) Medications ???Medication ???Instructions ???Recorded ???Confirmed ???Type docosahexaenoic acid 200 mg mg PO 08/27/24 12/12/24 History capsule ( DHA) ondansetron HCl 4 mg tablet 4 mg PO Q4H #60 tabs 10/10/24 08/0 11/29 Rx Last Menstrual Period: 07/17/24 Zika: Zika virus screening: Negative : No PFSH PFSH Medical History ADHD Anxiety , ectopic, tubal Surgical History History of ectopic Family History Mother Thyroid disorder Adopted Hypertension Hyperlipidemia Grandmother Hypertension Grandfather Hypertension Father Asthma Social History adopted: No household members: significant other and other details: Brother his baby current occupational status: employed current occupation: [employer] current occupational exposures/hazards: No pets and animals: [...] physical activity do you participate in: none christopher/judaism: None seatbelt use: always do you feel safe at home: Yes additional social history: BF: Fausto - [employer] Operator History 2 Elective abortions Hx Para 0 Spontaneous abortions 0 Hx # Term Pregnancies Ectopic pregnancies 1 Hx # Pregnancies Multiple births # of living children 0 Past Pregnancies Del. Date Name GA/Weeks Outcome Route Bth Weight Infant Gen Labor Lgth Anesthesia Del Locatn Provider FOB 09/08/20 4 ectopic SM Delivery Date: 09/08/20 Last Updated by: Farzaneh Deal RN Right ovarian tubal HPI 21wk ob Details: NAN MEYERS is a 24 year old who presents for routine OB visit. OB Visit KELTON Calculator Estimated Delivery Date Method Current WG Current Estimate 04/23/25 LMP (Certain) 21w 1d Other Estimates 04/23/25 Ultrasound #1 21w 1d Expected Delivery Route/Plan Labor Preferences- CB/BF classes: [...] 12w 6d 143 lb 6 oz 116/70 Negative -???-???-???-???-??? -???-???-???-???-??? -???-???- Negative 147 -???-???-???-???-??? -???-???-???-???-??? -???-???- -No VB. V omited up zithromax for chlamydia. Will retreat and instructed on use of zofran prior. Br US (more content not included)... Normal [facility] Chlamydia/GC VISHNU aptimaon CHLAMY,NUC ACID Negative Normal Negative [facility] Comment on above: Performed By: #### L 3400.8000 #### [facility] Laboratory [address] [place], [place], [address] GC BY NUC ACID Negative Normal Negative [facility] Comment on above: Result Comment: Perf ormed at: =G - [facility] [address] [place], [place] [id number] Platen Press Operator: Birdie Tobin MD, Phone: [phone] Performed By: #### L 3400.8000 #### [facility] Laboratory [address] [facility] [place], [address] Chlamydia trachomatis rRNA d etection by probe and target amplification methodOrdered By: Glendy Arvizu on 11-14-2024 C. trachomatis rRNA VISHNU+probe Ql (Unsp spec) Negative Negative [facility] Laboratory - Chemistry and C hemistry - challengeOrdered By: Glendy Arvizu on 11-14-2024 Bilirubin Ql (U) Negative [facility] Glucose Ql (U) Negative [facility] Ketones Ql (U) Negative [facility] pH (U) 7 [pH] [facility] Specific gravity (U) [Rel density] 1.010 [facility] Urobilinogen (U) [Mass/Vol] Negative [facility] Laboratory - Hematology and Cell countsOrdered By: Glendy Arvizu on 11-14-2024 Hemoglobin Ql (U) Negative [facility] Laboratory - Specimen inform ationOrdered By: Glendy Arvizu on 11-14-2024 Clarity (U) Clear [facility] Color (U) Yellow [facility] Laboratory - UrinalysisOrder ed By: Glendy Arvizu on 11-14-2024 Nitrite Ql (U) Negative [facility] Protein Ql (U) Trace [facility] Neisseria gonorrhoeae nuclei c acid detection by amplified probe techniqueOrdered By: Glendy Arvizu on 11-14-2024 N. gonorrhoeae DNA VISHNU+probe Ql (Unsp spec) Negative Negative [facility] Comment on above: Performed at: [facility] [place], [place] [id number] Director: Birdie Tobin MD, Phone: [phone] No Panel InformationOrdered By: Glendy Arvizu on 11-14-2024 Urine Leukocytes Negatve [facility] Urine Non-Hemolyzed Blood [facility] Funeral Planning Counselor Office Visit Reporton 11-14-2024 Funeral Planning Counselor Office Visit Report [facility] [address], [address] [place] [address] OFFICE VISIT Date of Service: 11/14/24 MR#: [id number] Acct: [id number] Name: NAN MEYERS Rep #: [id number] : 2000 Provider: NURYS Swenson ams Age/Sex: 24/F Location[place] [facility] [place] Status: Signed Intake Vital Signs 09/16/24 11:33 11/02/24 09:08 11/14/24 11:40 Height 5 ft 5 ft 5 ft Weight: 143 lb 8 oz BMI 28.0 BP 128/71 H Intake Visit Reasons: 17wk ob Chief Complaint: 17wk OB 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: No Is patient in pain?: No Allergies No Known Allergies Allergy (Verified 11/14/24 11:34) Medications ???Medication ???Instructions ???Recorded ???Confirmed ???Type docosahexaenoic acid 200 mg mg PO 08/27/24 11/14/24 History capsule ( DHA) ondansetron HCl 4 mg tablet 4 mg PO Q4H #60 tabs 10/10/2411/05 Rx Last Menstrual Period: 07/17/24 : No PFSH PFSH Medical History ADHD Anxiety , ectopic, tubal Surgical History History of ectopic Family History Mother Thyroid disorder Adopted Hypertension Hyperlipidemia Grandmother Hypertension Grandfather Hypertension Father Asthma Social History adopted: No household members: significant other and other details: Brother his baby current occupational status: employed current occupation: [employer] current occupational exposures/hazards: No pets and animals: [...] physical activity do you participate in: none christopher/judaism: None seatbelt use: always do you feel safe at home: Yes additional social history: BF: Fausto - [employer] Operator History 2 Elective abortions Hx Para 0 Spontaneous abortions 0 Hx # Term Pregnancies Ectopic pregnancies 1 Hx # Pregnancies Multiple births # of living children 0 Past Pregnancies Del. Date Name GA/Weeks Outcome Route Bth Weight Infant Gen Labor Lgth Anesthesia Del Locatn Provider FOB 09/08/20 4 ectopic SM Delivery Date: 09/08/20 Last Updated by: Farzaneh Deal RN Right ovarian tubal HPI 17wk ob Details: NAN MEYERS is a 24 year old who presents for routine OB visit. OB Visit KELTON Calculator Estimated Delivery Date Method Current WG Current Estimate 04/23/25 LMP (Certain) 17w 1d Other Estimates 04/23/25 Ultrasound #1 17w 1d Expected Delivery Route/Plan Labor Preferences- CB/BF classes: [...] 12w 6d 143 lb 6 oz 116/70 Negative -???-???-???-???-??? -???-???-???-???-??? -???-???- Negative 147 -???-???-???-???-??? -???-???-???-???-??? -???-???- -No VB. V omited up zithromax for chlamydia. Will retreat and instructed on use of zofran prior. Br US confirm FHT 11/14/24 -???-???-???-???-??? -???-???-???-?? (more content not included)... Normal [facility] Absolute lymphocyte countOrd ered By: Mike Dill on 11-02-2024 Lymphocytes Auto (Unsp spec) [#/Vol] 2.52 10*3/uL 0.83-4.51 [facility] Absolute neutrophil countOrd ered By: Mike Dill on 11-02-2024 Neutrophils (Bld) [#/Vol] 5.1 10*3/uL 2.0-7.7 [facility] Anion gap in Serum or Plasma Ordered By: Mike Dill on 11-02-2024 Anion gap [Moles/Vol] 12 mmol/L 5- [facility] Automated lymphocyte count a s percentage of total leukocytesOrdered By: Mike Dill on 11-02-2024 Lymphocytes/100 WBC Auto (Unsp spec) 29.1 % -41 [facility] BUN/creatinine ratioOrdered By: Mike Dill on 11-02-2024 Urea nitrogen/Creatinine [Mass ratio] 12.9 mg/mg 10- [facility] Basic Metabolic Profile (BMP )on 11-02-2024 BUN/CRE 12.9 RATIO Normal - [facility] Comment on above: Performed By: #### L 500.2500, L100.0100, L700.8000 #### [facility] Laboratory [address] [place], [address] Calcium [Mass/Vol] 8.9 mg/dL Normal 7.6-11.0 [facility] Comment on above: Performed By: #### L 500.2500, L100.0100, L700.8000 #### [facility] [address] [place], [address] Chloride [Moles/Vol] 102 mmol/L Normal 98-108 [facility] Comment on above: Performed By: #### L 500.2500, L100.0100, L700.8000 #### [facility] [address] [place], [address] CO2 [Moles/Vol] 20.7 mmol/L Low 21.0-32.0 [facility] Comment on above: Performed By: #### L 500.2500, L100.0100, L700.8000 #### [facility] [address] [place], [address] Creatinine [Mass/Vol] 0.58 mg/dL Low 0.70-1.20 [facility] Comment on above: Performed By: #### L 500.2500, L100.0100, L700.8000 #### [facility] [address] [place], [address] ECRCL 128.10 ml/min Normal 50-250 [facility] Comment on above: Performed By: #### L 500.2500, L100.0100, L700.8000 #### [facility] Laboratory [address] [place], [address] GAP 12 Normal 5-15 [facility] Comment on above: Performed By: #### L 500.2500, L100.0100, L700.8000 #### [facility] [address] [place], [address] GFR/1.73 sq M.predicted among non-blacks MDRD (S/P/Bld) [Vol rate/Area] 131 mL/min/{1.73_m2} Normal >60 [facility] Comment on above: Result Comment: mL/m in/1.73m2 CKD-EPI Creatinine Equation (2020) Performed By: #### L 500.2500, L100.0100, L700.8000 #### [facility] Laboratory [address] [place], [address] Glucose [Mass/Vol] 87 mg/dL Normal 70-99 [facility] Comment on above: Performed By: #### L 500.2500, L100.0100, L700.8000 #### [facility] [address] [place], [address] Potassium [Moles/Vol] 3.8 mmol/L Normal 3.3-5.1 [facility] Comment on above: Performed By: #### L 500.2500, L100.0100, L700.8000 #### [facility] [address] [place], [address] Sodium [Moles/Vol] 135 mmol/L Normal 133-145 [facility] Comment on above: Performed By: #### L 500.2500, L100.0100, L700.8000 #### [facility] [address] [place], [address] Urea nitrogen [Mass/Vol] 7 mg/dL Normal 4-19 [facility] Comment on above: Performed By: #### L 500.2500, L100.0100, L700.8000 #### [facility] [address] [place], [address] Basophil percentageOrdered B y: Mike Dill on 11-02-2024 Basophils/100 WBC (Bld) 0.6 % 0-1 [facility] Bilirubin Test strip Ql (U)O rdered By: Mike Dill on 11-02-2024 Bilirubin Ql (U) Negative Negative [facility] CBC W/Diff, Automatedon 10-07 Absolute Lymph 2.52 X10 3/uL Normal 0.83-4.51 [facility] Comment on above: Performed By: #### L 500.2500, L100.0100, L700.8000 #### [facility] [address] [place], [address] Absolute Neut 5.1 X10 3/uL Normal 2.0-7.7 [facility] Comment on above: Performed By: #### L 500.2500, L100.0100, L700.8000 #### [facility] [address] [place], [address] Basophils/100 WBC (Bld) 0.6 % Normal 0-1 [facility] Comment on above: Performed By: #### L 500.2500, L100.0100, L700.8000 #### [facility] [address] [place], [address] Eosinophils/100 WBC (Bld) 1.4 % Normal 0-5 [facility] Comment on above: Performed By: #### L 500.2500, L100.0100, L700.8000 #### [facility] [address] [place], [address] Erythrocyte distribution width (RBC) [Ratio] 14.2 % Normal 11.6-14.6 [facility] Comment on above: Performed By: #### L 500.2500, L100.0100, L700.8000 #### [facility] [address] [place], [address] Hematocrit (Bld) [Volume fraction] 34.9 % Low 37-47 [facility] Comment on above: Performed By: #### L 500.2500, L100.0100, L700.8000 #### [facility] [address] [place], [address] Hemoglobin (Bld) [Mass/Vol] 12.2 g/dL Normal 12.0-15.0 [facility] Comment on above: Performed By: #### L 500.2500, L100.0100, L700.8000 #### [facility] [address] [place], [address] IG% 0.200 Normal 0.0-0.9 [facility] Comment on above: Result Comment: IG% - Immature Granulocytes (promyelocytes, myelocytes and metamyelocytes) > 1% indicates that a LEFT SHIFT is Present. Performed By: #### L 500.2500, L100.0100, L700.8000 #### [facility] [address] [place], [address] Lymphocytes/100 WBC (Bld) 29.1 % Normal 19-41 [facility] Comment on above: Performed By: #### L 500.2500, L100.0100, L700.8000 #### [facility] [address] [place], [address] MCH (RBC) [Entitic mass] 30.4 pg Normal 27.0-32.0 [facility] Comment on above: Performed By: #### L 500.2500, L100.0100, L700.8000 #### [facility] [address] [place], [address] MCHC (RBC) [Mass/Vol] 35.0 g/dL Normal 32-36 [facility] Comment on above: Performed By: #### L 500.2500, L100.0100, L700.8000 #### [facility] [address] [place], [address] MCV (RBC) [Entitic vol] 87.0 fL Normal 81-99 [facility] Comment on above: Performed By: #### L 500.2500, L100.0100, L700.8000 #### [facility] [address] [place], [address] Monocytes/100 WBC (Bld) 9.6 % Normal 0-10 [facility] Comment on above: Performed By: #### L 500.2500, L100.0100, L700.8000 #### [facility] [address] [place], [address] Neutrophils/100 WBC (Bld) 59.1 % Normal 47-70 [facility] Comment on above: Performed By: #### L 500.2500, L100.0100, L700.8000 #### [facility] [address] [place], [address] Nucleated RBC (Bld) [#/Vol] 0 10*3/uL Normal 0-5 [facility] Comment on above: Performed By: #### L 500.2500, L100.0100, L700.8000 #### [facility] [address] [place], [address] Platelet mean volume (Bld) [Entitic vol] 11.7 fL Normal 6.2-12.0 [facility] Comment on above: Performed By: #### L 500.2500, L100.0100, L700.8000 #### [facility] [address] [place], [address] Platelets (Bld) [#/Vol] 278 10*3/uL Normal 150-450 [facility] Comment on above: Performed By: #### L 500.2500, L100.0100, L700.8000 #### [facility] [address] [place], [address] RBC (Bld) [#/Vol] 4.01 10*6/uL Low 4.2-5.4 [facility] Comment on above: Performed By: #### L 500.2500, L100.0100, L700.8000 #### [facility] [address] [place], [address] RDW SD 45.3 fl High 35.1-43.9 [facility] Comment on above: Performed By: #### L 500.2500, L100.0100, L700.8000 #### [facility] [address] [place], [address] WBC (Bld) [#/Vol] 8.7 10*3/uL Normal 4.4-11.0 [facility] Comment on above: Performed By: #### L 500.2500, L100.0100, L700.8000 #### [facility] [address] [place], [address] Carbon dioxide, total [Moles /volume] in Central venous bloodOrdered By: Mike Dill on 11-02-2024 CO2 [Moles/Vol] 20.7 mmol/L Low 21.0-32.0 [facility] Chloride assayOrdered By: Miguel Dill on 11-02-2024 Chloride [Moles/Vol] 102 mmol/L 98-108 [facility] Emergency Department Summary on 11-02-2024 Emergency Department Summary [facility] Medical Records Department [address] [place] [address] Emergency Department Summary 11/02/24 MR#: [id number] Acct: [id number] Name: NAN MEYERS Rep #: [id number] : 2000 24 From: Mike Dill DO PCP: MARISA WILLIAM STEREO PLOTTER OPERATOR-C Status:DEP ER Location: ED HPI HPI - Female History of Present Illness Chief Complaint: Vag Bld, Preg Informant: patient Pain Pain: Positive for Pelvic Pain Onset: Today Context: Gradual Onset Timing: Intermittent Quality: Positive for Cramping Location: Suprapubic Current Severity: 3/10 Bleeding Issue: Positive for Vaginal bleeding and Passing clots Onset: Today Context: Sudden Onset Associated Symptoms Associated Symptoms: Negative for Dysuria, Frequency or Urgency Test: Positive (Patient states she is 15 weeks ) P: 0 Ab: 0 Narrative Narrative: Patient presents with vaginal bleeding that began today. Patient states she went to the bathroom this morning. Patient states she noted some cramping and passed a moderate-sized clot. Patient states she has been having some persistent vaginal bleeding since that time. Patient denies any fevers or chills. Patient denies any nausea or vomiting. Patient states her pain is mainly over the suprapubic area. Patient states it comes and goes. Patient also admits to a mild headache. Patient states she is 15 weeks with her first . Patient admits to prior history of an ectopic . Patient states she follows with Dr. Nereida Garcia and [employer]. Patient states she was also recently diagnosed with chlamydia. Patient was given Zithromax to take at home. Patient states she was able to keep 1 pill down but vomited the second pill. Patient was unable to complete her treatment. PFSH PFSH Medical History ADHD Anxiety , ectopic, tubal Home Medications ???Medication ???Instructions ???Recorded ???Last Taken ???Type docosahexaenoic acid 200 mg mg PO 08/27/24 Unknown History capsule ( DHA) ondansetron HCl 4 mg tablet 4 mg PO Q4H #60 tabs 10/10/24 Unkn own Rx azithromycin 500 mg tablet 1,000 mg (2 x 500 mg) PO ONCE #2 0 10/15/24 Unknown Rx tabs Allergy/AdvReac Type Severity Reaction Status Date / Time No Known Allergies Allergy Verified 10/15/24 08:33 Family History Mother Thyroid disorder Adopted Hypertension Hyperlipidemia Grandmother Hypertension Grandfather Hypertension Father Asthma Surgical History History of ectopic Social History adopted: No household members: significant other and other details: Brother his baby current occupational status: employed current occupation: [employer] current occupational exposures/hazards: No pets and animals: [...] physical activity do you participate in: none christopher/judaism: None seatbelt use: always do you feel safe at home: Yes additional social history: BF: Fausto - [employer] Operator ROS ROS ED Constitutional Constitutional ED: Denies chills or fever(s) Eyes Eyes: Denies blurry vision or change in vision ENT ENT ED: Denies rhinorrhea or sore throat Cardiovascular Cardiovascular: Denies chest pain or palpitations Respiratory/Chest Respiratory/Chest: Denies cough or dyspnea Gastrointestinal Gastrointestinal: Reports abdominal pain; Denies nausea or vomiting Genitourinary Genitourinary ED: Denies dysuria or urinary frequency Musculoskeletal Musculoskeletal: Denies back pain or neck pain Integumentary Denies abscess or rash Neurologic Neurologic: Reports headache(s); Denies weakness Allergic/Immunologic Allergic/Immunologic ED: Denies mouth swelling or urticaria EXAM Physical Exam Const Vital Signs: 11/02/24 09:08 11/02/24 13:00 11/02/24 15:00 Temperature 97.6 F L Temperature Source Temporal Pulse Rate 107 H 65 68 Respiratory Rate 18 14 16 Blood Pressure 130/78 H 128/66 H 122/72 H Blood Pressure Mean 95 86 88 Pulse Ox 99 99 98 Oxygen Delivery Method Room Air 11/02/24 15:25 Temperature 98.3 F Temperatu (more content not included)... Normal [facility] Eosinophil percentageOrdered By: Mike Dill on 11-02-2024 Eosinophils/100 WBC (Bld) 1.4 % 0-5 [facility] Erythrocyte distribution wid th ratioOrdered By: Mike Dill on 11-02-2024 Erythrocyte distribution width (RBC) [Ratio] 14.2 % 11.6-14.6 [facility] Erythrocyte distribution wid th standard deviationOrdered By: Mike Dill on 11-02-2024 Erythrocyte distribution width (RBC) [Ratio] 45.3 fl High 35.1-43.9 [facility] Glomerular filtration rate ( GFR) estimation/1.73 sq m using serum, plasma, or whole bOrdered By: Mike Dill on 11-02-2024 GFR/1.73 sq M.predicted among non-blacks MDRD (S/P/Bld) [Vol rate/Area] 131 mL/min/{1.73_m2} >60 [facility] Comment on above: mL/min/1.73m2 CKD-EP I Creatinine Equation (2020) Hematocrit Auto (Bld) [Volum e fraction]Ordered By: Mike Dill on 11-02-2024 Hematocrit (Bld) [Volume fraction] 34.9 % Low 37-47 [facility] Hemoglobin measurementOrdere d By: Mike Dill on 11-02-2024 Hemoglobin (Bld) [Mass/Vol] 12.2 g/dL 12.0-15.0 [facility] Immature granulocytes/100 WB C Auto (Bld)Ordered By: Mike Dill on 11-02-2024 Immature granulocytes/100 WBC (Bld) 0.200 % 0.0-0.9 [facility] Comment on above: IG% - Immature Granu locytes (promyelocytes, myelocytes and metamyelocytes) > 1% indicates that a LEFT SHIFT is Present. Ketones Test strip Ql (U)Ord ered By: Mike Dill on 11-02-2024 Ketones Ql (U) 5 mg/dl High Negative [facility] MCV (mean corpuscular volume ) determinationOrdered By: Mike Dill on 11-02-2024 MCV (RBC) [Entitic vol] 87.0 fL 81-99 [facility] Mean corpuscular hemoglobin (MCH) determinationOrdered By: Mike Dill on 11-02-2024 MCH (RBC) [Entitic mass] 30.4 pg 27.0-32.0 [facility] Mean corpuscular hemoglobin concentration (MCHC) determinationOrdered By: Mike Dill on 11-02-2024 MCHC (RBC) [Mass/Vol] 35.0 g/dL 32-36 [facility] Mean platelet volume determi nationOrdered By: Mike Dill on 11-02-2024 Platelet mean volume (Bld) [Entitic vol] 11.7 fL 6.2-12.0 [facility] Microscopic analysis of urin e for red blood cells (RBC)Ordered By: Mike Dill on 11-02-2024 Microscopic analysis of urine for red blood cells (RBC) > 100 SEEN /hpf 0-5 [facility] Monocyte percentageOrdered B y: Mike Dill on 11-02-2024 Monocytes/100 WBC (Bld) 9.6 % 0-10 [facility] Mucus LM Ql (Urine sed)Order ed By: Mike Dill on 11-02-2024 Mucus Ql (Urine sed) 0 SEEN /hpf [facility] Neutrophil percentageOrdered By: Mike Dill on 11-02-2024 Neutrophils/100 WBC (Bld) 59.1 % 47-70 [facility] Nitrite Test strip Ql (U)Ord ered By: Mike Dill on 11-02-2024 Nitrite Ql (U) Negative Negative [facility] Nucleated red blood cell per centageOrdered By: Mike Dill on 11-02-2024 Nucleated RBC/100 WBC (Bld) [Ratio] 0 % 0-5 [facility] OB Limited With Biometricson 11-02-2024 OB Limited With Biometrics [facility] Services [address] [place], [place] [id number] OB Limited With Biometrics MR#: [id number] Acct: [id number] Name: NAN MEYERS Rep #: [id number] : 2000 F 24 From: Negro Schwarz DO PCP: MARISA WILLIAM STEREO PLOTTER OPERATOR-C Status: REG ER Study: OB Limited With Biometrics Date of Exam: 11/02 Exam# [id number] Ordering Dr: Mike Dill DO PROCEDURE: OB LIMITED WITH BIOMETRICS 11/02/2024 REASON FOR EXAM: VAGINAL BLEEDING. Early 2nd trimester TECHNIQUE: OB LIMITED WITH BIOMETRICS COMPARISON: None FINDINGS Number: 1 Position: Breech Placental Position: Anterior See exception following. Moderately echogenic rounded mass covers the cervix. This does not appear to be directly connected to placenta, but succenturiate placenta can not be excluded. Potentially this represents a variation of placenta previa Placental Abnormalities: Grade 0. No abnormalities. With the exception stated above. Cervical length: 3.3 cm. Closed cervical os. Adnexa unremarkable. DIMENSIONS: Biparietal Diameter: 3.04 cm/15 weeks, 4 days Head Circumference: 3.98 cm/15 weeks, 4 days Abdominal Circumference: 9.02 cm/15 weeks, 2 days Femur Length: 1.55 cm/14 weeks, 4 days ESTIMATED WEIGHT: 111 g +/-17 g ESTIMATED WEIGHT PERCENTILE (24+ weeks): 36% ESTIMATED GESTATIONAL AGE: Baseline: 15 weeks, 0 days By Ultrasound: 15 weeks, 3 days ESTIMATED DATE OF DELIVERY: Baseline: April 26, 2025 By Ultrasound: April 23, 2025 BIOPHYSICAL ASSESSMENT: Amniotic Fluid Volume: Amniotic Fluid Index: (8-24 cm normal range) Cardiac Motion: 166 (average) US/OB Limited With Biometrics IMPRESSION: rounded, 4 cm, potential lesion, covering the cervical os. A form of placenta previa can not be excluded. If it is previa, could be succenturiate placental lobe, but precise etiology is unknown. Level of certainty in the above diagnosis is low. Maternal- medicine in [facility] consult may be considered Reading [facility] CC: MARISA YANES; Dr. 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 Normal [facility] Platelet countOrdered By: Miguel Dill on 11-02-2024 Platelets (Bld) [#/Vol] 278 10*3/uL 150-450 [facility] Potassium measurement (mass/ volume)Ordered By: Mike Dill on 11-02-2024 Potassium (Unsp spec) [Mass/Vol] 3.8 mmol/L 3.3-5.1 [facility] Protein Test strip Ql (U)Ord ered By: Mike Dill on 11-02-2024 Protein Ql (U) 500 mg/dl High Negative [facility] RBC Auto (Bld) [#/Vol]Ordere d By: Mike Dill on 11-02-2024 RBC (Bld) [#/Vol] 4.01 10*6/uL Low 4.2-5.4 [facility] Serum creatinine measurement (mass/volume)Ordered By: Mike Dill on 11-02-2024 Creatinine [Mass/Vol] 0.58 mg/dL Low 0.70-1.20 [facility] Serum glucose measurement (m ass/volume)Ordered By: Mike Dill on 11-02-2024 Glucose [Mass/Vol] 87 mg/dL 70-99 [facility] Serum human chorionic gonado tropin detection for pregnancyOrdered By: Mike Dill on 11-02-2024 HCG ( test) [place]l [address] mIU/mL High <9 [facility] Comment on above: Gestational Age0.2-1 Week: 5-50 mIU/mL1-2 Weeks: 50-500 mIU/mL2-3 Weeks: 100-5000 mIU/mL3-4 Weeks: 500-10,000 mIU/mL4-5 Weeks:1000-50,000 mIU/mL5-6 Weeks: 10,000-100,000 mIU/mL6-8 Weeks: 15,000-200,000 mIU/mL2-3 Months:10,000-100,000 mIU/mL Serum or plasma calcium bryan urement (mass/volume)Ordered By: Mike Dill on 11-02-2024 Calcium [Mass/Vol] 8.9 mg/dL 7.6-11.0 [facility] Serum or plasma urea nitroge n measurement (mass/volume)Ordered By: Mike Dill on 11-02-2024 Urea nitrogen [Mass/Vol] 7 mg/dL 4-19 [facility] Sodium levelOrdered By: Mike Dill on 11-02-2024 Sodium [Moles/Vol] 135 mmol/L 133-145 [facility] Squamous epithelial cells de tection in urine sediment by light microscopyOrdered By: Mike Dill on 11-02-2024 Epithelial cells.squamous LM Ql (Urine sed) 0-5 SEEN /hpf 5-10 [facility] Urinalysis, Completeon 11-02 EPI,SQUAMOUS 0-5 SEEN Normal 5-10 [facility] Comment on above: Order Comment: COLOR OF URINE MAY AFFECT DIPSTICK RESULTS.CLEAN CATCH Performed By: #### L 3400.8000 #### [facility] [address] [place], [place], [id number] (075) RBC > 100 SEEN Normal 0-5 [facility] Comment on above: Order Comment: COLOR OF URINE MAY AFFECT DIPSTICK RESULTS.CLEAN CATCH Performed By: #### L 3400.8000 #### [facility] [address] [place], [address] WBC 0-5 SEEN Normal 0-5 [facility] Comment on above: Order Comment: COLOR OF URINE MAY AFFECT DIPSTICK RESULTS.CLEAN CATCH Performed By: #### L 3400.8000 #### [facility] [address] [place], [address] BACTERIA 0 SEEN Normal None Seen [facility] Comment on above: Order Comment: COLOR OF URINE MAY AFFECT DIPSTICK RESULTS.CLEAN CATCH Performed By: #### L 3400.8000 #### [facility] [address] [place], [place], [id number] Mucus Ql (Urine sed) 0 SEEN Normal [facility] Comment on above: Order Comment: COLOR OF URINE MAY AFFECT DIPSTICK RESULTS.CLEAN CATCH Performed By: #### L 3400.8000 #### [facility] [address] [place], [place], [id number] Urine clarityOrdered By: Maine Dill on 11-02-2024 Clarity (U) Turbid Clear [facility] Urine color determinationOrd ered By: Mike Dill on 11-02-2024 Color (U) Red Yellow [facility] Urine glucose detectionOrder ed By: Mike Dill on 11-02-2024 Glucose Ql (U) Normal mg/dl Normal [facility] Urine leukocyte esterase det ection by dipstickOrdered By: Mike Dill on 11-02-2024 Leukocyte esterase Test strip Ql (U) 25 /ul High Negative [facility] Urine pHOrdered By: Mike benavides on 11-02-2024 pH (U) 7.0 [pH] 5.0 - 8.0 [facility] Urine sediment bacteria coun t by microscopy (number/high power field)Ordered By: Mike Dill on 11-02-2024 Bacteria LM.HPF (Urine sed) [#/Area] 0 /[HPF] None Seen [facility] Urine specific gravity measu rementOrdered By: Mike Dill on 11-02-2024 Specific gravity (U) [Rel density] 1.010 1.002-1.030 [facility] Urine urobilinogen measureme ntOrdered By: Mike Dill on 11-02-2024 Urobilinogen Ql (U) Normal mg/dl Normal [facility] White blood cell (WBC) count Ordered By: Mike Dill on 11-02-2024 WBC (Bld) [#/Vol] 8.7 10*3/uL 4.4-11.0 [facility] White blood cell countOrdere d By: Mike Dill on 11-02-2024 White blood cell count 0-5 SEEN /hpf 0-5 [facility] hCG Titer Quant., Serumon HCG QUANT. 85892 mIU/mL High <9 non-preg [facility] Comment on above: Result Comment: Gest ational Age 0.2-1 Week: 5-50 mIU/mL 1-2 Weeks: 50-500 mIU/mL 2-3 Weeks: 100-5000 mIU/mL 3-4 Weeks: 500-10,000 mIU/mL 4-5 Weeks:1000-50,000 mIU/mL 5-6 Weeks: 10,000-100,000 mIU/mL 6-8 Weeks: 15,000-200,000 mIU/mL 2-3 Months:10,000-100,000 mIU/mL Performed By: #### L 500.2500, L100.0100, L700.8000 #### [facility] [address] [place], [address] Laboratory - Chemistry and C hemistry - challengeOrdered By: Negrita Vital on 10-15-2024 Glucose Ql (U) Negative [facility] Laboratory - UrinalysisOrder ed By: Negrita Vital on 10-15-2024 Protein Ql (U) Negative [facility] Funeral Planning Counselor Office Visit Reporton 10-15-2024 Funeral Planning Counselor Office Visit Report [facility] [address], [address] [place] [address] OFFICE VISIT Date of Service: 10/15/24 MR#: [id number] Acct: [id number] Name: NAN MEYERS Rep #: [id number] : 2000 Provider: DEBORAH grey Age/Sex: 24/F Location[place] [facility] Status: Signed Intake Vital Signs 08/29/23 14:31 09/16/24 11:33 10/15/24 08:32 Height 5 ft 5 ft 5 ft Weight: 143 lb 6 oz BMI 28.0 BP 116/70 Intake Visit Reasons: 13wk ob Chief Complaint: 13 Week 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 Normal [facility] Absolute lymphocyte countOrd ered By: Nereida Radha on 10-02-2024 Lymphocytes Auto (Unsp spec) [#/Vol] 1.89 10*3/uL 0.83-4.51 [facility] Absolute neutrophil countOrd ered By: Nereida Garcia on 10-02-2024 Neutrophils (Bld) [#/Vol] 6.2 10*3/uL 2.0-7.7 [facility] Automated lymphocyte count a s percentage of total leukocytesOrdered By: Nereida Garcia on 10-02-2024 Lymphocytes/100 WBC Auto (Unsp spec) 21.4 % 19-41 [facility] Basophil percentageOrdered B y: Nereida Garcia on 10-02-2024 Basophils/100 WBC (Bld) 0.3 % 0-1 [facility] CBC W/Diff, Automatedon 05-2 8-2025 Absolute Lymph 1.89 X10 3/uL Normal 0.83-4.51 [facility] Comment on above: Performed By: #### L 100.0100, L3890.6102, L3890.6301, L509.8002, L509.4006, BTS, L3890.6006 #### [facility] [address] [place], [address] Absolute Neut 6.2 X10 3/uL Normal 2.0-7.7 [facility] Comment on above: Performed By: #### L 100.0100, L3890.6102, L3890.6301, L509.8002, L509.4006, BTS, L3890.6006 #### [facility] [address] [place], [address] Basophils/100 WBC (Bld) 0.3 % Normal 0-1 [facility] Comment on above: Performed By: #### L 100.0100, L3890.6102, L3890.6301, L509.8002, L509.4006, BTS, L3890.6006 #### [facility] [address] [place], [address] Eosinophils/100 WBC (Bld) 0.8 % Normal 0-5 [facility] Comment on above: Performed By: #### L 100.0100, L3890.6102, L3890.6301, L509.8002, L509.4006, BTS, L3890.6006 #### [facility] [address] [place], [address] Erythrocyte distribution width (RBC) [Ratio] 15.0 % High 11.6-14.6 [facility] Comment on above: Performed By: #### L 100.0100, L3890.6102, L3890.6301, L509.8002, L509.4006, BTS, L3890.6006 #### [facility] [address] [place], [address] Hematocrit (Bld) [Volume fraction] 38.5 % Normal 37-47 [facility] Comment on above: Performed By: #### L 100.0100, L3890.6102, L3890.6301, L509.8002, L509.4006, BTS, L3890.6006 #### [facility] [address] [place], [address] Hemoglobin (Bld) [Mass/Vol] 12.9 g/dL Normal 12.0-15.0 [facility] Comment on above: Performed By: #### L 100.0100, L3890.6102, L3890.6301, L509.8002, L509.4006, BTS, L3890.6006 #### [facility] [address] [place], [address] IG% 0.200 Normal 0.0-0.9 [facility] Comment on above: Result Comment: IG% - Immature Granulocytes (promyelocytes, myelocytes and metamyelocytes) > 1% indicates that a LEFT SHIFT is Present. Performed By: #### L 100.0100, L3890.6102, L3890.6301, L509.8002, L509.4006, BTS, L3890.6006 #### [facility] [address] [place], [address] Lymphocytes/100 WBC (Bld) 21.4 % Normal 19-41 [facility] Comment on above: Performed By: #### L 100.0100, L3890.6102, L3890.6301, L509.8002, L509.4006, BTS, L3890.6006 #### [facility] [address] [place], [address] MCH (RBC) [Entitic mass] 29.3 pg Normal 27.0-32.0 [facility] Comment on above: Performed By: #### L 100.0100, L3890.6102, L3890.6301, L509.8002, L509.4006, BTS, L3890.6006 #### [facility] [address] [place], [address] MCHC (RBC) [Mass/Vol] 33.5 g/dL Normal 32-36 [facility] Comment on above: Performed By: #### L 100.0100, L3890.6102, L3890.6301, L509.8002, L509.4006, BTS, L3890.6006 #### [facility] [address] [place], [address] MCV (RBC) [Entitic vol] 87.5 fL Normal 81-99 [facility] Comment on above: Performed By: #### L 100.0100, L3890.6102, L3890.6301, L509.8002, L509.4006, BTS, L3890.6006 #### [facility] [address] [place], [address] Monocytes/100 WBC (Bld) 7.3 % Normal 0-10 [facility] Comment on above: Performed By: #### L 100.0100, L3890.6102, L3890.6301, L509.8002, L509.4006, BTS, L3890.6006 #### [facility] [address] [place], [address] Neutrophils/100 WBC (Bld) 70.0 % Normal 47-70 [facility] Comment on above: Performed By: #### L 100.0100, L3890.6102, L3890.6301, L509.8002, L509.4006, BTS, L3890.6006 #### [facility] [address] [place], [address] Nucleated RBC (Bld) [#/Vol] 0 10*3/uL Normal 0-5 [facility] Comment on above: Performed By: #### L 100.0100, L3890.6102, L3890.6301, L509.8002, L509.4006, BTS, L3890.6006 #### [facility] [address] [place], [address] Platelet mean volume (Bld) [Entitic vol] 12.0 fL Normal 6.2-12.0 [facility] Comment on above: Performed By: #### L 100.0100, L3890.6102, L3890.6301, L509.8002, L509.4006, BTS, L3890.6006 #### [facility] [address] [place], [address] Platelets (Bld) [#/Vol] 339 10*3/uL Normal 150-450 [facility] Comment on above: Performed By: #### L 100.0100, L3890.6102, L3890.6301, L509.8002, L509.4006, BTS, L3890.6006 #### [facility] [address] [place], [address] RBC (Bld) [#/Vol] 4.40 10*6/uL Normal 4.2-5.4 [facility] Comment on above: Performed By: #### L 100.0100, L3890.6102, L3890.6301, L509.8002, L509.4006, BTS, L3890.6006 #### [facility] [address] [place], [address] RDW SD 48.4 fl High 35.1-43.9 [facility] Comment on above: Performed By: #### L 100.0100, L3890.6102, L3890.6301, L509.8002, L509.4006, BTS, L3890.6006 #### [facility] [address] [place], [address] WBC (Bld) [#/Vol] 8.9 10*3/uL Normal 4.4-11.0 [facility] Comment on above: Performed By: #### L 100.0100, L3890.6102, L3890.6301, L509.8002, L509.4006, BTS, L3890.6006 #### [facility] [address] [place], [address] Eosinophil percentageOrdered By: Nereida Garcia on 10-02-2024 Eosinophils/100 WBC (Bld) 0.8 % 0-5 [facility] Erythrocyte distribution wid th ratioOrdered By: Nereida Garcia on 10-02-2024 Erythrocyte distribution width (RBC) [Ratio] 15.0 % High 11.6-14.6 [facility] Erythrocyte distribution wid th standard deviationOrdered By: Nereida Garcia on 10-02-2024 Erythrocyte distribution width (RBC) [Ratio] 48.4 fl High 35.1-43.9 [facility] HIVon 10-02-2024 HIV Non-Reactive Normal Nonreactive [facility] Comment on above: Result Comment: Non- Reactive Reactive Repeatedly reactive samples must be confirmed according to CDC recommended confirmatory algorithms. The subresults for either HIVAG or AHIV can be used as an aid in the selection of the confirmation algorithm for reactive samples. Send out specimens with Reactive results to [facility] for confirmation. Order the HIV antibody detection and differentiation: lc#[id number] Performed By: #### L 3400.8000 #### [facility] [address] [place], [address] Hematocrit Auto (Bld) [Volum e fraction]Ordered By: Nereida Garcia on 10-02-2024 Hematocrit (Bld) [Volume fraction] 38.5 % 37-47 [facility] Hemoglobin measurementOrdere d By: Nereida Garcia on 10-02-2024 Hemoglobin (Bld) [Mass/Vol] 12.9 g/dL 12.0-15.0 [facility] Hepatitis C Antibodyon 10-02 Hepatitis C Ab Non-Reactive Normal Nonreactive [facility] Comment on above: Result Comment: Reac tive: Presumptive evidence of antibodies to HCV. Follow CDC recommendations for supplemental testing. Non-Reactive: Antibodies to HCV were not detected; does not exclude the possibility of exposure to HCV Reactive Results are presumptive evidence of antibodies to HCV. Follow CDC recommendations for supplemental testing. Order confirmation testing: HCV Quant by PCR testing - HCVPCR #[id number] Non Reactive: < 0.8 Equivocal: >/= 0.8 to < 1.0 Reactive: >/= 1.[address] [facility] requires that a reactive/equivocal HCV antibody result be sent out for confirmation. HCV Quant by PCR testing. Performed By: #### L 3400.8000 #### [facility] [address], [address] Immature granulocytes/100 WB C Auto (Bld)Ordered By: Nereida Garcia on 10-02-2024 Immature granulocytes/100 WBC (Bld) 0.200 % 0.0-0.9 [facility] Comment on above: IG% - Immature Granu locytes (promyelocytes, myelocytes and metamyelocytes) > 1% indicates that a LEFT SHIFT is Present. L3890.6102on 10-02-2024 HEP B Surf Ag Non-Reactive Normal Nonreactive [facility] Comment on above: Result Comment: Reac tive: Presumptive evidence of HBV. Repeatedly reactive samples must be confirmed using a neutralization test ([employer] HBsAg Confirmatory Test) Non-Reactive: HBsAg not detected; does not exclude the possibility of exposure to HBV Performed By: #### L 3400.8000 #### [facility] [address] [place], [place], [address] L509.4006on 10-02-2024 Rubella IgG REAC Normal Nonreactive [facility] Comment on above: Result Comment: Anti body Result: Interpretation Non-Reactive: Non-Immune Reactive: Immune The following results were obtained with the [employer] Rubella IgG assay. Results from assays of other manufacturers cannot be used interchangeably. Performed By: #### L 100.0100, L3890.6102, L3890.6301, L509.8002, L509.4006, BTS, L3890.6006 #### [facility] [address] [place], [place], [address] Laboratory - Microbiology an d Antimicrobial susceptibilityOrdered By: Nereida Garcia on 10-02-2024 HBV surface Ag Ql (S) Non-Reactive Nonreactive [facility] Comment on above: Reactive: Presumptiv e evidence of HBV. Repeatedly reactive samples must be confirmed using a neutralization test ([employer] HBsAg Confirmatory Test)Non-Reactive: HBsAg not detected; does not exclude the possibility of exposure to HBV MCV (mean corpuscular volume ) determinationOrdered By: Nereida Garcia on 10-02-2024 MCV (RBC) [Entitic vol] 87.5 fL 81-99 [facility] Mean corpuscular hemoglobin (MCH) determinationOrdered By: Nereida Garcia on 10-02-2024 MCH (RBC) [Entitic mass] 29.3 pg 27.0-32.0 [facility] Mean corpuscular hemoglobin concentration (MCHC) determinationOrdered By: Nereida Garcia on 10-02-2024 MCHC (RBC) [Mass/Vol] 33.5 g/dL 32-36 [facility] Mean platelet volume determi nationOrdered By: Nereida Garcia on 10-02-2024 Platelet mean volume (Bld) [Entitic vol] 12.0 fL 6.2-12.0 [facility] Monocyte percentageOrdered B y: Nereida Garcia on 10-02-2024 Monocytes/100 WBC (Bld) 7.3 % 0-10 [facility] NATERAon 10-02-2024 NATURA SEE SCANNED REPORT Normal [facility] Comment on above: Performed By: #### L 900.0098 #### [facility] [address] [place], [place], [address] Neutrophil percentageOrdered By: Nereida Garcia on 10-02-2024 Neutrophils/100 WBC (Bld) 70.0 % 47-70 [facility] No Panel InformationOrdered By: Nereida Garcia on 10-02-2024 HIV (1&2) Antibody Non-Reactive Nonreactive [facility] Comment on above: Non-ReactiveReactive Repeatedly reactive samples must be confirmed according to CDC recommended confirmatory algorithms. The subresults for either HIVAG or AHIV can be used as an aid in the selection of the confirmation algorithm for reactive samples.Send out specimens with Reactive results to [facility] for confirmation.Order the HIV antibody detection and differentiation: #[id number] Nucleated red blood cell per centageOrdered By: Nereida Garcia on 10-02-2024 Nucleated RBC/100 WBC (Bld) [Ratio] 0 % 0-5 [facility] Platelet countOrdered By: Andrei Garcia on 10-02-2024 Platelets (Bld) [#/Vol] 339 10*3/uL 150-450 [facility] RBC Auto (Bld) [#/Vol]Ordere d By: Nereida Garcia on 10-02-2024 RBC (Bld) [#/Vol] 4.40 10*6/uL 4.2-5.4 [facility] Syphilis Antibodieson 2024 Syphilis Abs Non-Reactive Normal Nonreactive [facility] Comment on above: Performed By: #### L 100.0100, L3890.6102, L3890.6301, L509.8002, L509.4006, BTS, L3890.6006 #### [facility] [address] [place], [place], [address] Type AND Screenon 10-02-2024 Ab SCREEN GEL Negative Normal [facility] Comment on above: Order Comment: PN Performed By: #### L 100.0100, L3890.6102, L3890.6301, L509.8002, L509.4006, BTS, L3890.6006 #### [facility] [address] [place], [place], [address] White blood cell (WBC) count Ordered By: Nereida Garcia on 10-02-2024 WBC (Bld) [#/Vol] 8.9 10*3/uL 4.4-11.0 [facility] Chlamydia/GC VISHNU aptimaon CHLAMY,NUC ACID Positive Abnormal Negative [facility] Comment on above: Performed By: #### L 500.2500, L100.0100, L700.8000 #### [facility] [address] [place], [place], [id number] GC BY NUC ACID Negative Normal Negative [facility] Comment on above: Result Comment: Perf ormed at: =G - [facility] [address] [place] [id number] Platen Press Operator: Birdie Tobin MD, Phone: [phone] Performed By: #### L 500.2500, L100.0100, L700.8000 #### [facility] [address] [place], [place], [address] PAP I-G w/rfx hrHPV-Aptimaon 09-19-2024 ADEQ Comment Normal . [facility] Comment on above: Order Comment: Speci men Comment: [id number] Comment: No. of containers..01 ThinPrep Vial Result Comment: Sati sfactory for evaluation. No endocervical component is identified. An endocervical component is not commonly seen in the patient. Performed By: #### L 500.2500, L100.0100, L700.8000 #### [facility] [address] [place], [address] COMM . Normal . [facility] Comment on above: Order Comment: Speci men Comment: [id number] Comment: No. of containers..01 ThinPrep Vial Performed By: #### L 500.2500, L100.0100, L700.8000 #### [facility] [address] [place], [address] COMMENT Comment Normal . [facility] Comment on above: Order Comment: Speci men Comment: [id number] Comment: No. of containers..01 ThinPrep Vial Result Comment: This liquid based ThinPrep(R) pap test was screened with the use of an image guided system. Performed By: #### L 500.2500, L100.0100, L700.8000 #### [facility] [address] [place], [place], [address] DIAG Comment Normal . [facility] Comment on above: Order Comment: Speci men Comment: [id number] Comment: No. of containers..01 ThinPrep Vial Result Comment: NEGA TIVE FOR INTRAEPITHELIAL LESION OR MALIGNANCY. Performed By: #### L 500.2500, L100.0100, L700.8000 #### [facility] [address] [place], [place], [address] HPV RFLX Comment Normal . [facility] Comment on above: Order Comment: Speci men Comment: [id number] Comment: No. of containers..01 ThinPrep Vial Result Comment: The HPV DNA reflex criteria were not met with this specimen result therefore, no HPV testing was performed. Performed at: [address] [id number] Platen Press Operator: Birdie Tobin MD, Phone: [phone] Performed By: #### L 500.2500, L100.0100, L700.8000 #### [facility] [address] [place], [place], [address] PAPSMR Comment Normal . [facility] Comment on above: Order Comment: Speci men Comment: [id number] Comment: No. of containers..01 ThinPrep Vial Result Comment: The Pap smear is a screening test designed to aid in the detection of premalignant and malignant conditions of the uterine cervix. It is not a diagnostic procedure and should not be used as the sole means of detecting cervical cancer. Both false-positive and false-negative reports do occur. Performed By: #### L 500.2500, L100.0100, L700.8000 #### [facility] [address] [place], [place], [address] PERFORM Comment Normal . [facility] Comment on above: Order Comment: Speci men Comment: [id number] Comment: No. of containers..01 ThinPrep Vial Result Comment: Narayan Landis, Hoist Cylinder Loader (ASCP) Performed By: #### L 500.2500, L100.0100, L700.8000 #### [facility] [address] [place], [place], [address] Urine Cultureon 09-18-2024 URC Mixed Gram Pos Gram Neg Org [place] Count 11,000-25,000 MIXC Mixed contaminants. Submit a new specimen if indicated. Normal [facility] Comment on above: Performed By: #### L 500.2500, L100.0100, L700.8000 #### [facility] [address] [place], [place], [address] Cervical or vagninal specime n microscopic examination by cytology stain (reported asOrdered By: Nereida Garcia on 09-16-2024 Cytology report Cyto stain Doc (Cvx/Vag) Comment . [facility] Comment on above: The Pap smear is [...] VISHNU+probe Ql (Unsp spec) Positive High Negative [facility] - CytologyOrdered By: Nereida Garcia on 09-16-2024 Hoist Cylinder Loader Cyto stain Nom (Cvx/Vag) [ID] Comment . [facility] Comment on above: Octavio Landis Cytolog ist (ASCP) Laboratory - Miscellaneous t estsOrdered By: Nereida Garcia on 09-16-2024 Service comment (Unsp spec) [Interp] . . [facility] Neisseria gonorrhoeae nuclei c acid detection by amplified probe techniqueOrdered By: Nereida Garcia on 09-16-2024 N. gonorrhoeae DNA VISHNU+probe Ql (Unsp spec) Negative Negative [facility] Comment on above: Performed at: [address] [id number] Director: Birdie Tobin MD, Phone: [phone] No Panel InformationOrdered By: Nereida Garcia on 09-16-2024 Pap Smear Specimen Adequacy Comment . [facility] Comment on above: Satisfactory for cuauhtemoc luation. No endocervical component is identified.An endocervical component is not commonly seen in the patient. Funeral Planning Counselor Office Visit Reporton 09-16-2024 Funeral Planning Counselor Office Visit Report [facility] [address], [address] [place] [address] OFFICE VISIT Date of Service: 09/16/24 MR#: [id number] Acct: [id number] Name: NAN MEYERS Rep #: [id number] : 2000 Provider: Dr. 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: No Is patient in pain?: No Allergies No Known Allergies Allergy (Verified 09/16/24 11:30) Medications ???Medication ???Instructions ???Recorded ???Confirmed ???Type docosahexaenoic acid 200 mg mg PO 08/27/24 09/16/24 History capsule ( DHA) Last Menstrual Period: 07/17/24 Zika: Zika virus screening: Negative : Yes PFSH PFS Medical History ADHD Anxiety , ectopic, tubal Surgical History History of ectopic Family History Mother Thyroid disorder Adopted Hypertension Hyperlipidemia Grandmother Hypertension Grandfather Hypertension Father Asthma Social History adopted: No household members: significant other and other details: Brother his baby current occupational status: employed current occupation: [employer] current occupational exposures/hazards: No pets and animals: [...] physical activity do you participate in: none christopher/judaism: None seatbelt use: always do you feel safe at home: Yes additional social history: BF: Fausto - [employer] Operator History 2 Elective abortions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 temperature 98.49 [degF] Naina [place] APRN.WELLNESS INSTRUCTOR Work Phone: [facility] 07-04-2023 15:35-0500 Body weight 63.05 kg Naina [place] APRN.WELLNESS INSTRUCTOR Work Phone: [facility] 07-04-2023 15:35-0500 Diastolic blood pressure 74 mm[Hg] Naina [place] [employer]WELLNESS INSTRUCTOR Work Phone: [facility] 07-04-2023 15:35-0500 Heart rate 92 /min Naina [place] APRN.WELLNESS INSTRUCTOR Work Phone: [facility] 07-04-2023 15:35-0500 Respiratory rate 16 /min Naina [place] APRN.WELLNESS INSTRUCTOR Work Phone: [facility] 07-04-2023 15:35-0500 SaO2% (BldA) [Mass fraction] 98 % Naina [place] APRN.WELLNESS INSTRUCTOR Work Phone: [facility] 07-04-2023 15:35-0500 Systolic blood pressure 124 mm[Hg] Naina [place] APRN.WELLNESS INSTRUCTOR Work Phone: [facility] 06-26-2023 16:08-0500 Body temperature 98.01 [degF] May Koeniger [employer]WELLNESS INSTRUCTOR Work Phone: [facility] 06-26-2023 16:08-0500 Body weight 63.96 kg May Koeniger [employer]WELL[employer] INSTRUCTOR Work Phone: [facility] 06-26-2023 16:08-0500 Diastolic blood pressure 70 mm[Hg] May Delaney [employer]WELLNESS INSTRUCTOR Work Phone: [facility] 06-26-2023 16:08-0500 Heart rate 102 /min May Koeniger [employer]WELLNESS INSTRUCTOR Work Phone: [facility] 06-26-2023 16:08-0500 Respiratory rate 18 /min [place]ia Koeniger [employer].WELLNESS INSTRUCTOR Work Phone: [facility] 06-26-2023 16:08-0500 SaO2% (BldA) [Mass fraction] 98 % May Delaney [employer]WELLNESS INSTRUCTOR Work Phone: [facility] 06-26-2023 16:08-0500 Systolic blood pressure 122 mm[Hg] May Koeniger [employer]WELLNESS INSTRUCTOR Work Phone: [facility] 04-20-2023 12:42-0500 Body temperature 98.2 [degF] Kj Amaya MD Work Phone: [facility] 04-20-2023 12:42-0500 Body weight 62.14 kg Kj Amaya MD Work Phone: [facility] 04-20-2023 12:42-0500 Diastolic blood pressure 73 mm[Hg] Kj Amaya MD Work Phone: [facility] 04-20-2023 12:42-0500 Heart rate 83 /min Kj Amaya MD Work Phone: [facility] 04-20-2023 12:42-0500 Respiratory rate 18 /min Kj Amaya MD Work Phone: [facility] 04-20-2023 12:42-0500 SaO2% (BldA) [Mass fraction] 99 % Kj Amaya MD Work Phone: [facility] 04-20-2023 12:42-0500 Systolic blood pressure 137 mm[Hg] Kj Amaya MD Work Phone: [facility] 03-29-2023 07:12-0500 Body height 155.5 cm Marisa William [employer] IN[employer] Work Phone: [facility] 03-29-2023 07:12-0500 Body weight 61.78 kg Marisa William [employer] IN[employer]CTOR Work Phone: [facility] 03-29-2023 07:12-0500 Diastolic blood pressure 62 mm[Hg] Marisa William [employer]LL[employer] INSTRUCTOR Work Phone: [facility] 03-29-2023 07:12-0500 Heart rate 69 /min Marisa William [employer]WELLNESS IN[employer]CTOR Work Phone: [facility] 03-29-2023 07:12-0500 Respiratory rate 12 /min Marisa William [employer]WELL[employer] INSTRUCTOR Work Phone: [facility] 03-29-2023 07:12-0500 SaO2% (BldA) [Mass fraction] 98 % Marisa William [employer]WELLNESS INSTRUCTOR Work Phone: [facility] 03-29-2023 07:12-0500 Systolic blood pressure 98 mm[Hg] Marisa William [employer]WELLNESS INSTRUCTOR Work Phone: [facility] 02-28-2023 12:02-0400 Body temperature 98.1 [degF] Janie Athy PA-C Work Phone: [facility] 02-28-2023 12:02-0400 Body weight 60.33 kg Janie Athy PA-C Work Phone: [facility] 02-28-2023 12:02-0400 Diastolic blood pressure 68 mm[Hg] Janie Athy PA-C Work Phone: [facility] 02-28-2023 12:02-0400 Heart rate 96 /min Janie Athy PA-C Work Phone: [facility] 02-28-2023 12:02-0400 Respiratory rate 16 /min Janie Athy PA-C Work Phone: [facility] 02-28-2023 12:02-0400 SaO2% (BldA) [Mass fraction] 97 % Janie Athy PA-C Work Phone: [facility] 02-28-2023 12:02-0400 Systolic blood pressure 122 mm[Hg] Janie Athy PA-C Work Phone: [facility] 02-21-2023 14:00-0400 Body height 152.[address] Unique Rivas Work Phone: [facility] 02-21-2023 13:59-0400 Body mass index (BMI) [Ratio] 26.2 kg/m2 Dr. Unique Rivas Work Phone: [facility] 02-21-2023 13:59-0400 Body weight 60.[address] Unique Rivas Work Phone: [facility] 02-13-2023 13:26-0400 Body mass index (BMI) [Ratio] 25.8 kg/m2 Dr. Unique Rivas Work Phone: 5(199)[phone] [place] [address] 02-13-2023 13:26-0400 Body weight 60.[address] Unique Rivas Work Phone: [facility] 02-13-2023 13:26-0400 Diastolic blood pressure 84 mm[Hg] Dr. Unique Rivas Work Phone: [facility] 02-13-2023 13:26-0400 Systolic blood pressure 120 mm[Hg] Dr. Unique Rivas Work Phone: [facility] 01-30-2023 08:13-0400 Body height 152.4 cm [facility] 01-30-2023 08:13-0400 Body mass index (BMI) [Ratio] 25.4 kg/m2 [facility] 01-30-2023 08:13-0400 Body temperature 97.6 [degF] [facility] 01-30-2023 08:13-0400 Body weight 59.14 kg [facility] 01-30-2023 08:13-0400 Diastolic blood pressure 78 mm[Hg] [facility] 01-30-2023 08:13-0400 Heart rate 64 /min [facility] 01-30-2023 08:13-0400 Respiratory rate 14 /min [facility] 01-30-2023 08:13-0400 SaO2% (BldA) [Mass fraction] 98 % [facility] 01-30-2023 08:13-0400 Systolic blood pressure 118 mm[Hg] [facility] 01-24-2023 17:08-0400 Body temperature 97.81 [degF] Lizette Kinney [employer] IN[employer]CTOR Work Phone: [facility] 01-24-2023 17:08-0400 Body weight 60.15 kg Lizette Kinney [employer]WELLNESS INSTRUCTOR Work Phone: [facility] 01-24-2023 17:08-0400 Diastolic blood pressure 78 mm[Hg] Lizette Kinney [employer]WELLNESS INSTRUCTOR Work Phone: [facility] 01-24-2023 17:08-0400 Heart rate 79 /min Lizette Kinney [employer]WELLNESS INSTRUCTOR Work Phone: [facility] 01-24-2023 17:08-0400 Respiratory rate 18 /min Lizette Kinney [employer]WELLNESS INSTRUCTOR Work Phone: [facility] 01-24-2023 17:08-0400 SaO2% (BldA) [Mass fraction] 99 % Lizette Kinney [employer]WELLNESS INSTRUCTOR Work Phone: [facility] 01-24-2023 17:08-0400 Systolic blood pressure 110 mm[Hg] Lizette Kinney [employer]WELLNESS INSTRUCTOR Work Phone: [facility] 01-19-2023 14:29-0400 Body temperature 97.81 [degF] Kj Amaya MD Work Phone: [facility] 01-19-2023 14:29-0400 Body weight 58.97 kg Kj Amaya MD Work Phone: [facility] 01-19-2023 14:29-0400 Diastolic blood pressure 60 mm[Hg] Kj Amaya MD Work Phone: [facility] 01-19-2023 14:29-0400 Heart rate 104 /min Kj Amaya MD Work Phone: [facility] 01-19-2023 14:29-0400 Respiratory rate 16 /min Kj Amaya MD Work Phone: [facility] 01-19-2023 14:29-0400 SaO2% (BldA) [Mass fraction] 99 % Kj Amaya MD Work Phone: [facility] 01-19-2023 14:29-0400 Systolic blood pressure 124 mm[Hg] Kj Amaya MD Work Phone: [facility] 10-25-2022 14:02-0400 Body temperature 98.1 [degF] Janie Athy PA-C Work Phone: [facility] 10-25-2022 14:02-0400 Body weight 55.88 kg Janie Athy PA-C Work Phone: [facility] 10-25-2022 14:02-0400 Diastolic blood pressure 74 mm[Hg] Janie Athy PA-C Work Phone: [facility] 10-25-2022 14:02-0400 Heart rate 82 /min Janie Athy PA-C Work Phone: [facility] 10-25-2022 14:02-0400 Respiratory rate 16 /min Janie Athy PA-C Work Phone: [facility] 10-25-2022 14:02-0400 SaO2% (BldA) [Mass fraction] 97 % Janie Athy PA-C Work Phone: [facility] 10-25-2022 14:02-0400 Systolic blood pressure 128 mm[Hg] Janie Athy PA-C Work Phone: [facility] 09-12-2022 15:17-0400 Body temperature 98.2 [degF] Lizette Kinney [employer]WELLNESS INSTRUCTOR Work Phone: [facility] 09-12-2022 15:17-0400 Body weight 53.98 kg Lizette Kinney [employer]WELLNESS INSTRUCTOR Work Phone: [facility] 09-12-2022 15:17-0400 Diastolic blood pressure 60 mm[Hg] Lizette Kinney [employer]WELLNESS INSTRUCTOR Work Phone: [facility] 09-12-2022 15:17-0400 Heart rate 102 /min Lizette Kinney [employer]WELLNESS INSTRUCTOR Work Phone: [facility] 09-12-2022 15:17-0400 Respiratory rate 16 /min Lizette Kinney [employer]WELLNESS INSTRUCTOR Work Phone: [facility] 09-12-2022 15:17-0400 SaO2% (BldA) [Mass fraction] 99 % Lizette Kinney [employer]WELLNESS INSTRUCTOR Work Phone: [facility] 09-12-2022 15:17-0400 Systolic blood pressure 102 mm[Hg] Lizette Kinney [employer]WELLNESS INSTRUCTOR Work Phone: [facility] 06-30-2022 14:05-0500 Body temperature 98.1 [degF] Debbi Praisler-Wood [employer]WELLNESS INSTRUCTOR Work Phone: [facility] 06-30-2022 14:05-0500 Body weight 53.43 kg Debbi Praisler-Wood [employer]WELLNESS INSTRUCTOR Work Phone: [facility] 06-30-2022 14:05-0500 Diastolic blood pressure 64 mm[Hg] Debbi Praisler-Wood [employer]WELLNESS INSTRUCTOR Work Phone: [facility] 06-30-2022 14:05-0500 Heart rate 93 /min Debbi Praisler-Wood [employer]WELLNESS INSTRUCTOR Work Phone: [facility] 06-30-2022 14:05-0500 Respiratory rate 18 /min Debbi Praisler-Wood [employer]WELLNESS INSTRUCTOR Work Phone: [facility] 06-30-2022 14:05-0500 SaO2% (BldA) [Mass fraction] 98 % Debib Praisler-Wood [employer]WELLNESS INSTRUCTOR Work Phone: [facility] 06-30-2022 14:05-0500 Systolic blood pressure 98 mm[Hg] Debbi Praisler-Wood [employer]WELLNESS INSTRUCTOR Work Phone: [facility] 11-04-2021 09:50-0400 Body mass index (BMI) [Percentile] Per age and sex 35.88 % Unique Rivas MD Work Phone: [facility] 11-04-2021 09:50-0400 Body temperature 97.5 [degF] Unique Rivas MD Work Phone: [facility] 11-04-2021 09:50-0400 Body weight 48.22 kg Unique Riavs MD Work Phone: [facility] 11-04-2021 09:50-0400 Diastolic blood pressure 60 mm[Hg] Unique Rivas MD Work Phone: [facility] 11-04-2021 09:50-0400 Heart rate 80 /min Unique Rivas MD Work Phone: [facility] 11-04-2021 09:50-0400 Respiratory rate 18 /min Unique Rivas MD Work Phone: [facility] 11-04-2021 09:50-0400 Systolic blood pressure 110 mm[Hg] Unique Rivas MD Work Phone: [facility] 08-09-2021 10:02-0400 Body mass index (BMI) [Percentile] Per age and sex 40.69 % Kj Amaya MD Work Phone: [facility] 08-09-2021 10:02-0400 Body temperature 98.91 [degF] Kj Amaya MD Work Phone: [facility] 08-09-2021 10:02-0400 Body weight 48.99 kg Kj Amaya MD Work Phone: [facility] 08-09-2021 10:02-0400 Diastolic blood pressure 62 mm[Hg] Kj Amaya MD Work Phone: [facility] 08-09-2021 10:02-0400 Heart rate 108 /min Kj Amaya MD Work Phone: [facility] 08-09-2021 10:02-0400 Respiratory rate 16 /min Kj Amaya MD Work Phone: [facility] 08-09-2021 10:02-0400 SaO2% (BldA) [Mass fraction] 99 % Kj Amaya MD Work Phone: [facility] 08-09-2021 10:02-0400 Systolic blood pressure 106 mm[Hg] Kj Amaya MD Work Phone: [facility] Encounters Encounter Date Encounter Type Care Provider Facility Start: 01-09-2025 End: 01-09-[address] Unique Rivas MD Work Phone: -[facility] Start: 01-09-2025 End: 01-09-[address] Nereida Garcia MD -[facility] Work Phone: Start: 12-19-2024 End: 12-19-2024 Emergency department patient visit PHYSICIAN [facility] Start: 12-16-2024 End: 12-16-2024 ambulatory SARAH T ABHIJIT [facility] Start: 12-12-2024 End: 12-12-[address] Sarah Ravi DO -[facility] Work Phone: Start: 12-12-2024 End: 12-12-[address] Unique Rivas MD Work Phone: -[facility] Start: 12-10-2024 End: 12-10-2024 ambulatory GATO TRUJILLO [facility] Start: 12-10-2024 End: 12-10-2024 Subsequent hospital visit by physician Gato Trujillo MD Work Phone: [facility] Start: 12-02-2024 End: 12-02-2024 ambulatory UNIQUE RAMIREZ [facility] Start: 11-14-2024 End: 11-14-[address] Unique Rivas MD Work Phone: -Laboratory Specimen Start: 11-14-2024 End: 11-14-2024 Patient encounter procedure Glendy Arvizu CN -Laboratory Specimen Work Phone: Start: 11-14-2024 End: 11-14-2024 Patient encounter procedure Glendy Arvizu CNM -[facility] Work Phone: Start: 11-14-2024 End: 11-14-[address] Unique Rivas MD Work Phone: -[facility] Start: 11-14-2024 End: 11-14-2024 ambulatory Glendy Arvizu Facility:[facility] Start: 11-02-2024 End: 11-02-2024 Emergency department patient visit Dr. Unique Rivas MD Work Phone: -Emergency Department Work Phone: Start: 10-15-2024 End: 10-15-2024 Patient encounter procedure Negrita CABRERA -[facility] Work Phone: Start: 10-15-2024 End: 10-15-[address] Unique Rivas MD Work Phone: [facility] Work Phone: Start: 10-02-2024 End: 10-02-[address] Unique Rivas MD Work Phone: [facility] Work Phone: Start: 10-02-2024 End: 10-02-[address] Nereida Garcia MD -Lab [facility] Start: 10-02-2024 End: 10-02-2024 ambulatory Nereida Garcia Facility:[facility] Start: 09-16-2024 End: 09-16-[address] Unique Rivas MD Work Phone: [facility] Work Phone: Start: 09-16-2024 End: 09-16-[address] Nereida Garcia MD -Laboratory Specimen Work Phone: Start: 09-16-2024 End: 09-16-[address] Sarah Ravi DO -[facility] Work Phone: Start: 09-16-2024 End: 09-16-2024 ambulatory Unique Evelyn Facility:[facility] Start: 09-16-2024 End: 09-16-2024 ambulatory Nereida Garcia Facility:[facility] Start: 08-27-2024 End: 08-27-[address] Nereida Garcia MD -[facility] Work Phone: Start: 08-27-2024 End: 08-27-2024 ambulatory [facility] Facility:[facility] Start: 07-30-2024 End: 07-30-2024 Telephone encounter Marisa William APRN.WELLNESS INSTRUCTOR Work Phone: [facility] Comment on above: Orders Start: 07-07-2024 End: 09-06-2024 Follow-up encounter Naina Nichols APRN.WELLNESS INSTRUCTOR Work Phone: [facility] Start: 07-06-2024 End: 07-06-2024 ambulatory MARISA ANGEL WILLIAM Facility:[facility] Start: 07-06-2024 End: 07-06-2024 Patient encounter procedure Janelle Weldon APRN.WELLNESS INSTRUCTOR Work Phone: [facility] Comment on above: Rhinosinusitis (Prim maru Dx) Start: 07-02-2024 End: 07-02-2024 ambulatory MARISA ANGEL WILLIAM Facility:[facility] Start: 07-02-2024 End: 07-02-2024 Office outpatient visit 25 minutes Carlos Salazar PA-C Work Phone: [facility] Comment on above: Sore throat (Primary Dx); Acute pharyngitis, unspecified etiology Start: 06-19-2024 End: 08-19-2024 Follow-up encounter Stef AGUDELO Work Phone: [facility] Start: 06-18-2024 End: 06-18-2024 ambulatory MARISA WILLIAM Facility:[facility] Start: 06-18-2024 End: 06-18-2024 Patient encounter procedure Debbi Arceo [employer]LL[employer] INSTRUCTOR Work Phone: [facility] Comment on above: Flu-like symptoms (P rimary Dx) Start: 05-10-2024 End: 05-10-2024 ambulatory MARISA WILLIAM Facility:[facility] Start: 05-10-2024 Encounter for genera l adult medical examination without abnormal findings MARISA WILLIAM [facility] Start: 05-10-2024 End: 05-10-2024 Patient encounter procedure Marisa William AIRPLANE PILOT.WELLNESS INSTRUCTOR Work Phone: [facility] Comment on above: Wellness examination (Primary Dx); Family history of hypothyroidism; Right leg pain Start: 05-10-2024 End: 05-10-2024 Patient encounter status Marisa William AIRPLANE PILOT.WELLNESS INSTRUCTOR Work Phone: [facility] Work Phone: Start: 04-23-2024 End: 04-23-2024 ambulatory Unique Mosquedakenyon Facility:[facility] Start: 02-05-2024 End: 02-05-2024 ambulatory MARISA WILLIAM Facility:[facility] Start: 02-05-2024 End: 02-05-2024 Patient encounter procedure Naina Nichols AIRPLANE PILOT.WELLNESS INSTRUCTOR Work Phone: [facility] Comment on above: URI, acute (Primary Dx) Start: 11-28-2023 End: 11-28-2023 ambulatory MARISA WILLIAM Facility:[facility] Start: 11-28-2023 End: 11-28-2023 Patient encounter procedure Stef AGUDELO Work Phone: [facility] Comment on above: Headache, unspecifie d headache type (Primary Dx) Start: 11-03-2023 End: 11-03-2023 ambulatory MARISA WILLIAM Facility:[facility] Start: 11-03-2023 End: 11-03-2023 Office outpatient visit 15 minutes Beltran Carreon AIRPLANE PILOT.WELLNESS INSTRUCTOR Work Phone: [facility] Comment on above: Pain of right lower extremity (Primary Dx) Start: 09-01-2023 End: 09-01-2023 ambulatory MARISA WILLIAM Facility:[facility] Start: 09-01-2023 End: 09-01-2023 Patient encounter procedure Marisa William AIRPLANE PILOT.WELLNESS INSTRUCTOR Work Phone: [facility] Comment on above: Wellness examination (Primary Dx) Start: 09-01-2023 End: 09-01-2023 Patient encounter status Marisa William AIRPLANE PILOT.WELLNESS INSTRUCTOR Work Phone: [facility] Work Phone: Start: 07-04-2023 End: 07-04-2023 Patient encounter procedure Naina Nichols AIRPLANE PILOT.WELLNESS INSTRUCTOR Work Phone: [facility] Comment on above: Acute otitis media, left (Primary Dx); Sore throat Start: 06-26-2023 End: 06-26-2023 Patient encounter procedure May Delaney AIRPLANE PILOT.WELLNESS INSTRUCTOR Work Phone: [facility] Comment on above: Exposure to SARS-ass ociated coronavirus (Primary Dx) Start: 04-20-2023 End: 04-20-2023 Patient encounter procedure Kj Amaya MD Work Phone: [facility] Comment on above: Acute hip pain, righ t (Primary Dx) Start: 03-29-2023 End: 03-29-2023 Patient encounter procedure Marisa William AIRPLANE PILOT.WELLNESS INSTRUCTOR Work Phone: [facility] Comment on above: Wellness examination (Primary Dx) Start: 03-29-2023 End: 03-29-2023 Patient encounter status Marisa Stewart CHANELN.WELLNESS INSTRUCTOR Work Phone: [facility] Work Phone: Start: 02-28-2023 End: 02-28-2023 Patient encounter procedure Janie Holder PA-C Work Phone: [facility] Comment on above: Nausea (Primary Dx) Start: 02-21-2023 End: 02-21-[address] Unique Rivas Work Phone: [facility] Work Phone: Start: 02-21-2023 End: 02-21-[address] Unique Rivas Work Phone: [facility] Specimen Work Phone: Start: 02-21-2023 End: 02-21-[address] Unique Rivas Work Phone: [facility] Work Phone: Start: 02-13-2023 End: 02-13-[address] Unique Rivas Work Phone: [facility] Work Phone: Start: 01-30-2023 End: 01-30-2023 Emergency department patient visit [facility] Work Phone: Start: 01-24-2023 End: 01-24-2023 Patient encounter procedure Lizette Kinney APRN.WELLNESS INSTRUCTOR Work Phone: [facility] Comment on above: Nausea vomiting and diarrhea (Primary Dx) Start: 01-19-2023 End: 01-19-2023 Patient encounter procedure Kj Amaya MD Work Phone: [facility] Comment on above: Costochondritis (Ale olamide Dx) Start: 10-25-2022 End: 10-25-2022 Patient encounter procedure Janie Holder PA-C Work Phone: [facility] Comment on above: Fluid level behind t ympanic membrane of right ear (Primary Dx); Headache, unspecified headache type Start: 09-12-2022 End: 09-12-2022 Patient encounter procedure Lizette Kinney APRN.WELLNESS INSTRUCTOR Work Phone: [facility] Comment on above: URI, acute (Primary Dx); Pharyngitis, unspecified etiology Start: 06-30-2022 End: 06-30-2022 Patient encounter procedure Debbimonster Arceo APRN.CNP Work Phone: [facility] Comment on above: Encounter for screen ing laboratory testing for COVID-19 virus (Primary Dx) Start: 06-30-2022 Telephone encounter May harris MD Work Phone: [facility] Comment on above: [facility] COVID Outr [facility] Start: 02-23-2022 Refill Unique Liu ed, MD Work Phone: [facility] Comment on above: Refill Request Start: 01-25-2022 Refill Unique Liu ed, MD Work Phone: [facility] Comment on above: Refill Request Start: 01-24-2022 End: 01-24-2022 Patient encounter procedure Nurse Rosales Watson [facility] Comment on above: Encounter for immuni zation (Primary Dx) Refill Request Start: 01-22-2022 Refill Unique Liu ed, MD Work Phone: [facility] Comment on above: Refill Request Start: 01-21-2022 End: 01-21-2022 Patient encounter procedure Nurse Rosales Watson [facility] Comment on above: Encounter for PPD sk in test reading (Primary Dx) Start: 01-06-2022 End: 01-06-2022 Patient encounter procedure Nurse Rosales Watson [facility] Comment on above: Encounter for PPD sk in test reading (Primary Dx); Screening-pulmonary TB Start: 12-27-2021 End: 12-27-2021 Patient encounter procedure Unique Rivas MD Work Phone: [facility] Comment on above: Encounter for immuni zation (Primary Dx) Start: 12-23-2021 Refill Tessa Martinez PA-C Work Phone: [facility] Comment on above: Refill Request Start: 12-01-2021 Telephone encounter Angie Maya RN [facility] Comment on above: [facility] COVID Outr [facility] Start: 11-04-2021 End: 11-04-2021 Patient encounter procedure Unique Rivas MD Work Phone: [facility] Comment on above: Attention deficit hy peractivity disorder (ADHD), predominantly inattentive type (Primary Dx); Anxiety Start: 10-22-2021 Refill Unique Liu ed, MD Work Phone: [facility] Comment on above: Refill Request Start: 09-20-2021 Refill Unique Liu ed, MD Work Phone: [facility] Comment on above: Refill Request Start: 09-18-2021 Refill Unique Liu ed, MD Work Phone: [facility] Comment on above: Refill Request Start: 08-09-2021 End: 08-09-2021 Patient encounter procedure Kj Amaya MD Work Phone: [facility] Comment on above: Toothache (Primary D x) Procedures Date Procedure Procedure Detail Performing Clinician Start: 11-02-2024 Urnls dip stick/tabl et reagent auto microscopy Dr. Unique Rivas MD Work Phone: Start: 11-02-2024 Ultrasound scan for growth Dr. Unique Rivas MD Work Phone: Start: 11-02-[address] Unique Rivas MD Work Phone: Start: 10-02-[address] Lluvia Rivas MD [...] HCV Quant by PCR testing - HCVPCR #[id number] Non Reactive: < 0.8 Equivocal: >/= 0.8 to < 1.0 Reactive: >/= 1.0The CDC requires that a reactive/equivocal HCV antibody result be sent out for confirmation. HCV Quant by PCR testing. Start: 10-02-[address] Unique Rivas MD Work Phone: Comment on above: Antibody Result: Int erpretationNon-Reactive: Non- ImmuneReactive: ImmuneThe following results were obtained with the [employer] [...] therefore, no HPV testing was performed.Performed at: [address] [id number] Director: Birdie Tobin MD, Phone: [phone] Start: 09-16-[address] Elma Rivas MD Work Phone: Start: 07-02-2024 STREP A MOLECULAR (POC) Lizette Kinney APRN.WELLNESS INSTRUCTOR Work Phone: Start: 07-04-2023 STREP A MOLECULAR (POC) [facility] Provider Start: 02-21-[address] Unique Rivas Work Phone: Start: 02-21-2023 Chlamydia trachomatis (PCR) Dr. Unique Rivas Work Phone: Start: 09-12-2022 STREP A MOLECULAR (POC) Lizette Kinney APRN.WELLNESS INSTRUCTOR Work Phone: Start: 01-24-2022 INFLUENZA VACCINE QUADRIVALENT 6 MO - 64 YRS IM Unique Rivas MD Work Phone: Start: 12-27-2021 Adult depression scr eening assessment Unique Rivas MD Work Phone: Start: 11-04-2021 Adult depression scr eening assessment Unique Rivas MD Work Phone: Start: 07-09-2021 Adult depression scr eening assessment Kj Amaya MD Work Phone: Plan of Treatment Date Care Activity Detail Author Start: 2077 RSV VACCINE (1 - 1-d ose 75+ series) RSV VACCINE (1 - 1-dose 75+ series) [facility] Start: 05-10-2025 Covid-19 Vaccine () Covid-19 Vaccine ( season) [facility] Comment on above: Postponed from 01/06 (Declined at this time) Start: 01-06-2025 Influenza vaccination INFLUENZA VACC INE (#1) [facility] Start: 11-04-2024 Influenza vaccination Influenza Vacc ine (#1) [facility] Comment on above: Postponed from 01/06 (Declined at this time) Start: 11-02-2024 [facility] Start: 09-16-2024 Liquid based cervica l cytology screening [facility] Start: 07-02-2024 End: 07-02-2024 ambulatory 07/02/2024 12:00 PM EST OT/PT/Speech Visit [facility] [address] [place] [address] Lizette Andrews, PT My right leg [facility] Comment on above: My right leg Start: 05-10-2024 End: 08-09-2024 CBC W Auto Differential panel - Blood COMPLETE BLOOD COUNT AND DIFFERENTIAL Lab Routine Wellness examination Expected: 05/10/2024, Expires: 08/09/2024 [facility] Comment on above: Expected: 05/10/2024 , Expires: 08/09/2024 Start: 05-10-2024 End: 08-09-2024 Comprehensive metabolic 2000 panel - Serum or Plasma COMPREHENSIVE METABOLIC PANEL Lab Routine Wellness examination Expected: 05/10/2024, Expires: 08/09/2024 [facility] Work Phone: Comment on above: Expected: 05/10/2024 , Expires: 08/09/2024 Start: 05-10-2024 End: 08-09-2024 Hemoglobin A1c in Blood HEMOGLOBIN A1C Lab Routine Wellness examination Expected: 05/10/2024, Expires: 08/09/2024 [facility] Comment on above: Expected: 05/10/2024 , Expires: 08/09/2024 Start: 05-10-2024 End: 08-09-2024 Lipid 1996 panel - Serum or Plasma LIPID PANEL BASIC Lab Routine Wellness examination Expected: 05/10/2024, Expires: 08/09/2024 [facility] Comment on above: Expected: 05/10/2024 , Expires: 08/09/2024 Start: 05-10-2024 End: 08-09-2024 Thyrotropin [Units/volume] in Serum or Plasma THYROID STIMULATING HORMONE Lab Routine Wellness examination Family history of hypothyroidism Expected: 05/10/2024, Expires: 08/09/2024 [facility] Comment on above: Expected: 05/10/2024 , Expires: 08/09/2024 Start: 04-22-2024 Tetanus vaccination [facility] Start: 04-22-2024 Urine microalbumin profile [facility] Start: 03-29-2024 Covid-19 Vaccine (#1) Covid-19 Vacci ne (#1) [facility] Comment on above: Postponed from 07/11 (Declined at this time) Start: 03-29-2024 Covid-19 Vaccine ( season) Covid-19 Vaccine ( season) [facility] Comment on above: Postponed from 01/06 (Declined at this time) Start: 01-07-2024 Covid-19 Vaccine ( season) Covid-19 Vaccine ( season) [facility] Start: 01-07-2024 Influenza vaccination C [facility] Start: 11-16-2023 End: 11-16-2023 Patient encounter procedure 11/16/2023 8:00 AM EDT Office Visit [facility] [address] [facility] [place] [address] Marisa William APRN.WELLNESS INSTRUCTOR [address] [facility] [place] [id number] Follow up from Urgent Care - Thigh pain [facility] Comment on above: Follow up from [facility] Care - Thigh pain Start: 11-05-2023 Influenza vaccination Influenza Vacc ine (#1) [facility] Comment on above: Postponed from 01/06 (Declined at this time) Start: 05-08-2023 Behavioral Health Screening Behavioral Health Screening [facility] Start: 05-08-2023 Depression Assessment Depression Ass essment [facility] Start: 03-29-2023 End: 06-28-2023 CBC W Auto Differential panel - Blood CBC + DIFF Lab Routine Wellness examination Expected: 03/29/2023, Expires: 06/28/2023 [facility] Work Phone: Comment on above: Expected: 03/29/2023 , Expires: 06/28/2023 Start: 03-29-2023 End: 06-28-2023 Comprehensive metabolic 2000 panel - Serum or Plasma COMP METABOLIC PANEL Lab Routine Wellness examination Expected: 03/29/2023, Expires: 06/28/2023 [facility] Work Phone: Comment on above: Expected: 03/29/2023 , Expires: 06/28/2023 Start: 03-29-2023 End: 06-28-2023 Lipid 1996 panel - Serum or Plasma LIPID PANEL BASIC Lab Routine Wellness examination Expected: 03/29/2023, Expires: 06/28/2023 [facility] Work Phone: Comment on above: Expected: 03/29/2023 , Expires: 06/28/2023 Start: 2023 Pap Testing Pap Testing [facility] Start: 2023 Screening for malign ant neoplasm of cervix [facility] Start: 01-06-2023 Influenza vaccination Influenza Vacc ine (#1) [facility] Start: 12-27-2022 Adult depression scr eening assessment DEPRESSION SCREENING [facility] Start: 11-04-2022 Adult depression scr eening assessment DEPRESSION SCREENING [facility] Start: 09-12-2022 End: 09-26-2022 Influenza virus A and B RNA and SARS-CoV-2 (COVID-19) N gene panel - Respiratory specimen by VISHNU with probe detection [facility] Work Phone: Comment on above: Expected: 09/12/2022 , Expires: 09/26/2022 Start: 07-09-2022 Adult depression scr eening assessment DEPRESSION SCREENING [facility] Start: 05-08-2022 DEPRESSION ASSESSMENT DEPRESSION ASS ESSMENT [facility] Start: 01-06-2022 Influenza vaccination INFLUENZA (#1) [facility] Start: 12-01-2021 End: 12-15-2021 Influenza virus A and B RNA and SARS-CoV-2 (COVID-19) N gene panel - Respiratory specimen by VISHNU with probe detection CAREGIVER COVID + FLU A/B, ROUTINE Microbiology Routine Suspected 2019 novel coronavirus infection Expected: 12/01/2021, Expires: 12/15/2021 [facility] Work Phone: Comment on above: Expected: 12/01/2021 , Expires: 12/15/2021 Start: 05-08-2021 DEPRESSION ASSESSMENT DEPRESSION ASS ESSMENT [facility] Start: 01-12-2020 CHLAMYDIA SCREENING (18-24) CHLAMYDIA SCREENING (18-24) [facility] Start: 01-12-2020 Depression Screening Depression Scre ening [facility] Start: 01-12-2020 GC (GONORRHEA) SCREE DAPHNE (18-24) GC (GONORRHEA) SCREENING (18-24) [facility] Start: 01-12-2020 HEPATITIS C SCREENING HEPATITIS C SC REENING [facility] Start: 01-12-2020 HIV SCREENING HIV SCREENING [facility] Start: 01-12-2020 Screening for Chlamy dwayne trachomatis Chlamydia Screening (18-24) [facility] Start: 2018 Meningococcal B Vacc ine (1 of 2 - Standard) Meningococcal B Vaccine (1 of 2 - Standard) [facility] Start: 2018 Meningococcal B Vacc ine: Consider Based On Risk (1 of 2 - Patient Seeks Protection) Meningococcal B Vaccine: Consider Based On Risk (1 of 2 - Patient Seeks Protection) [facility] Start: 2018 Screening for Chlamy dwayne trachomatis CHLAMYDIA SCREEN [facility] Start: 2017 HIV screening HIV SCREENING DISCUSSION [facility] Start: 01-12-2016 PEDS TO ADULT TRANSI TION ANNUAL ASSESSMENT PEDS TO ADULT TRANSITION ANNUAL ASSESSMENT [facility] Start: 01-12-2012 MENINGOCOCCAL B: Con backfiller based on risk (1 of 2 - Risk Bexsero 2-dose series) MENINGOCOCCAL B: Consider based on risk (1 of 2 - Risk Bexsero 2-dose series) [facility] Start: 2007 COVID-19 VACCINE (#1) COVID-19 VACCI NE (#1) [facility] Start: 2007 COVID-19 VACCINE (1) COVID-19 VACCIN E (1) [facility] Start: 2002 COVID-19 VACCINE (#1) COVID-19 VACCI NE (#1) [facility] Start: 2002 Hepatitis C screening HEPATITI S C VIRUS SCREENING [facility] Start: 2002 Screening for Chlamy dwayne trachomatis GONORRHEA SCREEN [facility] CBC W Auto Different ial panel - Blood [facility] CBC W Auto Different ial panel - Blood [facility] Chlamydia deoxyribon ucleic acid detection [facility] COVID & INFLUENZA A/ B & RSV NAAT, ROUTINE COVID & INFLUENZA A/B & RSV NAAT, ROUTINE Microbiology Routine Exposure to SARS-associated coronavirus 06/26/2023 4:20 PM EST [facility] Work Phone: COVID & INFLUENZA A/ B & RSV PCR, ROUTINE COVID & INFLUENZA A/B & RSV PCR, ROUTINE Microbiology Routine URI, acute 02/05/2024 11:27 AM EDT [facility] Work Phone: COVID & INFLUENZA A/ B & RSV PCR, ROUTINE COVID & INFLUENZA A/B & RSV PCR, ROUTINE Microbiology Routine Flu-like symptoms 06/18/2024 11:59 AM EST [facility] Work Phone: COVID & INFLUENZA A/ B & RSV PCR, ROUTINE COVID & INFLUENZA A/B & RSV PCR, ROUTINE Microbiology Routine Rhinosinusitis Ordered: 07/06/2024 [facility] Work Phone: Comment on above: Ordered: 07/06/2024 Hepatitis C antibody measurement [facility] Influenza virus A an d B RNA and SARS-CoV-2 (COVID-19) N gene panel - Respiratory specimen by VISHNU with probe detection CAREGIVER COVID + FLU A/B, ROUTINE Microbiology Routine Encounter for screening laboratory testing for COVID-19 virus 06/30/2022 3:27 PM EST [facility] Work Phone: Influenza virus A an d B RNA and SARS-CoV-2 (COVID-19) N gene panel - Respiratory specimen by VISHNU with probe detection COVID & INFLUENZA A/B NAAT, ROUTINE Microbiology Routine Nausea 02/28/2023 12:49 PM EDT [facility] Work Phone: Measurement of gluco se 2 hours after glucose challenge for glucose tolerance test [facility] Patient Education [facility] Work Phone: Patient referral [facility] Work Phone: PPD (TB INTRADERMAL 18808) B/O PPD (TB INTRADERMAL 34356) B/O Procedures Routine Screening-pulmonary TB Ordered: 07/30/2024 [facility] Work Phone: Comment on above: Ordered: 07/30/2024 Rubella IgG measurement [facility] Serologic test for syphilis [facility] Serologic test for syphilis [facility] Immunizations Immunization Date Immunization Notes Care Provider Tate valencia 01-24-2022 influenza, injectabl e, quadrivalent, contains preservative Nurse [facility] Work Phone: 01-24-2022 influenza virus vacc ine, unspecified formulation Kj Amaya MD Work Phone: [facility] 01-18-2022 tuberculin skin test ; purified protein derivative solution, intradermal Naina Nichols APRN.WELLNESS INSTRUCTOR Work Phone: [facility] 01-03-2022 tuberculin skin test ; purified protein derivative solution, intradermal Naina Nichols APRN.WELLNESS INSTRUCTOR Work Phone: [facility] 12-27-2021 hepatitis B vaccine, pediatric or pediatric/adolescent dosage Unique Rivas MD Work Phone: [facility] 11-10-2021 varicella virus vaccine Johny Martinez PA-C Work Phone: [facility] 01-26-2021 influenza, injectabl e, quadrivalent, contains preservative Kj Amaya MD Work Phone: [facility] 03-15-2018 influenza, injectabl e, quadrivalent, contains preservative Kj Amaya MD Work Phone: [facility] 03-15-2018 meningococcal polysaccharide (groups A, C, Y and W-135) diphtheria toxoid conjugate vaccine (MCV4P) Kj Amaya MD Work Phone: [facility] 06-12-2017 influenza, injectabl e, quadrivalent, contains preservative Kj Amaya MD Work Phone: [facility] 04-14-2016 Human Papillomavirus 9-valent vaccine Kj Amaya MD Work Phone: [facility] 04-14-2016 influenza, injectabl e, quadrivalent, contains preservative Kj Amaya MD Work Phone: [facility] 04-09-2015 human papilloma viru s vaccine, quadrivalent Kj Amaya MD Work Phone: [facility] 04-09-2015 influenza, injectabl e, quadrivalent, contains preservative Kj Amaya MD Work Phone: [facility] 04-22-2014 human papilloma viru s vaccine, quadrivalent Kj Amaya MD Work Phone: [facility] 04-22-2014 influenza, live, intranasal, quadrivalent Kj Amaya MD Work Phone: [facility] 04-22-2014 meningococcal polysaccharide (groups A, C, Y and W-135) diphtheria toxoid conjugate vaccine (MCV4P) Kj Amaya MD Work Phone: [facility] 04-22-2014 tetanus toxoid, redu sofia diphtheria toxoid, and acellular pertussis vaccine, adsorbed Kj Amaya MD Work Phone: [facility] 02-25-2011 influenza virus vacc ine, live, attenuated, for intranasal use Kj Amaya MD Work Phone: [facility] 02-16-2010 influenza virus vacc ine, live, attenuated, for intranasal use Kj Amaya MD Work Phone: [facility] Work Phone: 05-29-2007 diphtheria, tetanus toxoids and acellular pertussis vaccine Kj Amaya MD Work Phone: [facility] Work Phone: 05-29-2007 measles, mumps and rubella virus vaccine Kj Amaya MD Work Phone: [facility] Work Phone: 05-29-2007 poliovirus vaccine, inactivated Kj Amaya MD Work Phone: [facility] Work Phone: 05-29-2007 varicella virus vaccine Doug Amaya MD Work Phone: [facility] Work Phone: 11-24-2005 pneumococcal conjuga te vaccine, 7 valent Kj Amaya MD Work Phone: [facility] Work Phone: 08-18-2004 pneumococcal conjuga te vaccine, 7 valent Kj Amaya MD Work Phone: [facility] Work Phone: 08-21-2003 diphtheria, tetanus toxoids and acellular pertussis vaccine Kj Amaya MD Work Phone: [facility] Work Phone: 08-21-2003 haemophilus influenz ae type b vaccine, HbOC conjugate Kj Amaya MD Work Phone: [facility] Work Phone: 01-15-2003 measles, mumps and rubella virus vaccine Kj Amaya MD Work Phone: [facility] Work Phone: 01-15-2003 varicella virus vaccine Doug Amaya MD Work Phone: [facility] Work Phone: 2002 hepatitis B vaccine, pediatric or pediatric/adolescent dosage Kj Amaya MD Work Phone: [facility] Work Phone: 2002 diphtheria, tetanus toxoids and acellular pertussis vaccine Kj Amaya MD Work Phone: [facility] Work Phone: 2002 haemophilus influenz ae type b vaccine, HbOC conjugate Kj Amaya MD Work Phone: [facility] Work Phone: 2002 poliovirus vaccine, inactivated Kj Amaya MD Work Phone: [facility] Work Phone: 2002 diphtheria, tetanus toxoids and acellular pertussis vaccine Kj Amaya MD Work Phone: [facility] Work Phone: 2002 haemophilus influenz ae type b vaccine, HbOC conjugate Kj Amaya MD Work Phone: [facility] Work Phone: 2002 pneumococcal conjuga te vaccine, 7 valent Kj Amaya MD Work Phone: [facility] Work Phone: 2002 poliovirus vaccine, inactivated Kj Amaya MD Work Phone: [facility] Work Phone: 2002 diphtheria, tetanus toxoids and acellular pertussis vaccine Kj Amaya MD Work Phone: [facility] Work Phone: 2002 haemophilus influenz ae type b vaccine, HbOC conjugate Kj Amaya MD Work Phone: [facility] Work Phone: 2002 pneumococcal conjuga te vaccine, 7 valent Kj Amaya MD Work Phone: [facility] Work Phone: 2002 poliovirus vaccine, inactivated Kj Amaya MD Work Phone: [facility] Work Phone: 2002 hepatitis B vaccine, pediatric or pediatric/adolescent dosage Kj Amaya MD Work Phone: [facility] Work Phone: 2002 hepatitis B vaccine, pediatric or pediatric/adolescent dosage Kj Amaya MD Work Phone: [facility] Work Phone: Payers Date Payer Category Payer Self-pay [id number] 2022 Medicaid [id number] 2017 Medicaid [employer] [id number] 2017-Present [phone] [place] [address] Medicaid [id number] 2017 Medicaid [id number] 2002 Unknown [id number] 2002 Unknown [id number] Unknown [id number] Unknown [id number] Unknown [id number] Unknown [id number] Unknown [id number] Unknown [id number] Unknown [id number] Unknown [id number] Unknown [id number] Unknown [id number] Unknown [id number] Social History Date Type Detail Facility Start: 02-25-2011 End: 12-10-2024 Tobacco smoking status NHIS Never smoked tobacco [facility] Work Phone: Start: 08-09-2021 End: 07-06-2024 Alcohol intake Current non-drinker of alcohol (finding) [facility] Start: 11-02-2010 End: 06-30-2022 Tobacco Comment Both parents inside and outside [facility] Start: 2000 Sex Assigned At Not on file C [facility] Start: 07-30-2021 End: 12-30-2021 Exposure to SARS-CoV-2 (event) Not sure [facility] Work Phone: Start: 11-04-2021 History SDOH Alcohol Frequency 1 [facility] Start: 11-04-2021 History SDOH Alcohol Std Drinks 98 [facility] Start: 11-04-2021 History SDOH Social Connections Phone 5 [facility] Start: 11-04-2021 History SDOH Social Connections Get Together 3 [facility] Start: 11-04-2021 History SDOH Social Connections Membership 2 [facility] Start: 11-04-2021 History SDOH Social Connections Living 8 [facility] Start: 11-04-2021 History SDOH Physica l Activity MPS 0 [facility] Start: 11-04-2021 History SDOH Financial 4 [facility] History of tobacco use Passive smoker [facility] Start: 02-25-2011 End: 12-10-2024 Tobacco use and exposure Smokeless tobacco non-user [facility] Start: 11-04-2021 End: 12-10-2024 History of Social function [facility] Start: 11-04-2021 End: 12-10-2024 Social connection and isolation panel [facility] Do you belong to any clubs or organizations such as hindu groups, unions, fraternal or athletic groups, or school groups? No [facility] Are you now , , , , never or living with a partner? Living with partner [facility] How often to you hav e a drink containing alcohol? Never [facility] How many standard dr inks containing alcohol do you have on a typical day? Patient refused [facility] How hard is it for y ou to pay for the very basics like food, housing, medical care, and heating Not very hard [facility] Do you feel stress - tense, restless, nervous, or anxious, or unable to sleep at night because your mind is troubled all the time - these days [OSQ] Not at all [facility] (I/We) worried wheth er (my/our) food would run out before (I/we) got money to buy more. Sometimes true [facility] Start: 01-30-2023 End: 02-13-2023 Tobacco smoking status NHIS Unknown if ever smoked [facility] Start: 09-09-2020 Non-smoker [facility] Start: 2000 Sex Assigned At Female W [facility] Are you now , , , , never or living with a partner? Refused [facility] How often to you hav e a drink containing alcohol? Monthly or less [facility] How many standard dr inks containing alcohol do you have on a typical day? 1 or 2 [facility] (I/We) worried wheth er (my/our) food would run out before (I/we) got money to buy more. Never true [facility] Start: 08-27-2024 End: 12-12-2024 Tobacco smoking status NHIS Ex-smoker (finding) [facility] Start: 12-10-2024 Alcoholic beverage intake Life time non-drinker (finding) [facility] Start: 08-03-2024 [facility] Start: 12-10-2024 Sex Female (finding) [facility] Medical Equipment Procedure Code Equipment Code Equipment [...] 10/27/2014 9:31 AM Megha Bullard Cma No [facility] 10-27-2014 Are you blind, or do you have serious difficulty seeing, even when wearing glasses No 10/27/2014 9:31 AM Megha Bullard Cma No [facility] 10-27-2014 Do you have serious difficulty walking or climbing stairs No 10/27/2014 9:31 AM Megha Bullard Cma No [facility] 10-27-2014 Do you have difficul ty dressing or bathing No 10/27/2014 9:31 AM Megha Bullard Cma No [facility] Mental Status Date Assessment Result Facility 01-30-2023 Cognitive function Level Of Cons ciousness Awake;Alert;Appropriate [facility] Work Phone: 10-27-2014 Because of a physica l, mental, or emotional condition, do you have serious difficulty concentrating, remembering, or making decisions No 10/27/2014 9:31 AM EDT Megha Arvizu Cma No [facility] Clinical Notes 04-01-2013 to 01-09-2025 Nursing Notes - Raissa Fontanez RN - 12/10/2024 1:55 AM EDTNursing Notes - Yue Stern RN - 12/10/2024 1:48 AM EDTNursing Notes - Yue Stern RN - 12/10/2024 1:27 AM EDT Note Date & Type Note Facility 01-09-2025 Progress note [facility] 12-10-2024 Miscellaneous Notes Formattin g of this note might be different from the original. Discharge AVS reviewed with patient and significant other. Verbal education provided along with attachment of education to patient AVS in regards to round ligament pain, abdominal pain, and in gestation of 20+ weeks. Patient reports next OB appointment to be this 12/12/2024. Patient encouraged to attend appointment. Patient asks about delivering providers at present location. Informed of providers with delivering privileges within both [facility] campuses. Patient and significant other deny additional concerns. Ambulate off unit with AVS in hand at 0200. Dr Trujillo called with [facility]. Orders to discharge pt Pt arrives to unit with complaint of dusing a doppler at home and noting heart rate of 55 . Pt is a and is 20w3d. Rates her pain a 3 on a scale of 0-10. Denies any vaginal bleeding or leaking of fluid. Oriented to room and plan of care. Up to bathroom to change into gown. documented in this encounter [facility] 12-10-2024 Nurse Note Discharge AVS reviewed with patient and significant other. Verbal education provided along with attachment of education to patient AVS in regards to round ligament pain, abdominal pain, and in gestation of 20+ weeks. Patient reports next OB appointment to be this 12/12/2024. Patient encouraged to attend appointment. Patient asks about delivering providers at present location. Informed of providers with delivering privileges within both [facility] campuses. Patient and significant other deny additional concerns. Ambulate off unit with AVS in hand at 0200. [facility] 12-10-[address] Trujillo called with [facility]. Orders to discharge pt [facility] 12-10-2024 Nurse Note Pt arrives to unit with complaint of dusing a doppler at home and noting heart rate of 55 . Pt is a and is 20w3d. Rates her pain a 3 on a scale of 0-10. Denies any vaginal bleeding or leaking of fluid. Oriented to room and plan of care. Up to bathroom to change into gown. [facility] 11-14-2024 Progress note [facility] 11-02-2024 Radiology Diagnostic study note [facility] Services [address] [place] [address] OB Limited With Biometrics MR#: [id number] Acct: [id number] Name: NAN MEYERS Rep #: [id number] : 2000 F 24 From: Pet er Peer DO PCP: MARISA WILLIAM STEREO PLOTTER OPERATOR-C Status: REG ER Study:OB Limited With Biometrics Date of Exam : 11/02/24 Exam# [id number] Ordering Dr: Mike Dill DO PROCEDURE: OB LIMITED WITH BIOMETRICS 11/02/2024 REASON FOR EXAM: VAGINAL BLEEDING. Early 2nd trimester TECHNIQUE: OB LIMITED WITH BIOMETRICS COMPARISON: None FINDINGS Number: 1 Position: Breech Placental Position: Anterior See exception following. Moderately echogenic rounded mass covers the cervix. This does not appear to bedirectly connected to placenta, but succenturiate placenta can not be excluded. Potentially this represents a variation of placenta previa Placental Abnormalities: Grade 0. No abnormalities. With the exception stated above. Cervical length: 3.3 cm. Closed cervical os. Adnexa unremarkable. DIMENSIONS: Biparietal Diameter: 3.04 cm/15 weeks, 4 days Head Circumference: 3.98 cm/15 weeks, 4 days Abdominal Circumference: 9.02 cm/15 weeks, 2 days Femur Length: 1.55 cm/14 weeks, 4 days ESTIMATED WEIGHT: 111 g +/-17 g ESTIMATED WEIGHT PERCENTILE (24+ weeks): 36% ESTIMATED GESTATIONAL AGE: Baseline: 15 weeks, 0 days By Ultrasound: 15 weeks, 3 days ESTIMATED DATE OF DELIVERY: Baseline: April 26, 2025 By Ultrasound: April 23, 2025 BIOPHYSICAL ASSESSMENT: Amniotic Fluid Volume: Amniotic Fluid Index: (8-24 cm normal range) Cardiac Motion: 166 (average) US/OB Limited With Biometrics IMPRESSION: rounded, 4 cm, potential lesion, covering the cervical os. A form of placenta previa can not be excluded. If it is previa, could be succenturiate placental lobe, but precise etiology is unknown. Level of certainty in the above diagnosis is low. Maternal- medicine in [facility] consult may be considered Reading Location[facility] CC: MARISA YANES; Dr. 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 [facility] 09-16-2024 Evaluation note Diagnosis Onset Date Resolution ADHD acute September 16, 2024 11:29am Anxiety acute September 16, 2024 11:29am History of ectopic acute September 16, 2024 11:29am acute September 16, 2024 11:29am Smoker acute September 16, 2024 11:29am Supervision of high-risk acute September 16 11:29am ADHD acute October 15 8:30am Anxiety acute October 15 8:30am Chlamydia infection affecting acute October 15, 8:30am History of ectopic acute October 15, 2024 8:30am acute October 15 8:30am Smoker acute October 15 8:30am Supervision of high-risk acute October 15, 8:30am ADHD acute November 14 11:31am Anxiety acute November 14 11:31am Chlamydia infection affecting acute November 14, 11:31am History of ectopic acute November 14, 2024 11:31am acute November 14 11:31am Smoker acute November 14 11:31am Supervision of high-risk acute November 14 11:31am ADHD acute December 12 1:03pm Anxiety acute December 12 1:03pm Chlamydia infection affecting acute December 12, 2024 1:03pm History of ectopic acute December 12, 2024 1:03pm acute December 12 1:03pm Smoker acute December 12 1:03pm Supervision of high-risk acute December 12, 2024 1:03pm ADHD acute January 09, 2025 10:18am Anxiety acute January 09, 2025 10:18am Chlamydia infection affecting acute January 10:18am History of ectopic acute January 09 10:18am acute January 09, 2025 10:18am Smoker acute January 09, 2025 10:18am Supervision of high-risk acute January 10:18am [facility] Work Phone: 1(327) 618-136104-22-2025 Evaluation note* Diagnosis Onset Date Resolution Status [...] high-risk acute September 16, 2024 1 1:29am [facility] Work Phone: 1(265) 806-336004-22-2025 Evaluation note* Diagnosis Onset Date Resolution Status [...] of high-risk acute October 15, 2024 8:30am [facility] Work Phone: 1(884) 585-585104-22-2025 Evaluation note* Diagnosis Onset Date Resolution Status [...] of high-risk acute October 15, 2024 8:30am ADHD acute November 14 11:31am Anxiety acute November 14 11:31am Chlamydia infection affectin g acute November 14, 2024 11:31am History of ectopic acute November 14, 2024 11:31am acute November 14 11:31am Smoker acute November 14 11:31am Supervision of high-risk acute November 14, 2024 11:31am [facility] Work Phone: 1(350) 263-899104-22-2025 Evaluation note* Diagnosis Onset Date Resolution Status [...] of high-risk acute October 15, 2024 8:30am ADHD acute November 14 11:31am Anxiety acute November 14 11:31am Chlamydia infection affectin g acute November 14, 2024 11:31am History of ectopic acute November 14, 2024 11:31am acute November 14 11:31am Smoker acute November 14 11:31am Supervision of high-risk acute November 14, 2024 11:31am ADHD acute December 12 1:03pm Anxiety acute December 12 1:03pm Chlamydia infection affectin g acute December 12, 2024 1:03pm History of ectopic acute December 12, 2024 1:03pm acute December 12 1:03pm Smoker acute December 12 1:03pm Supervision of high-risk acute December 12, 2024 1:03pm [employer] Work Phone: 1(336) 824-1690072114-20-0571 Telephone encounter Note* Telephone Encounter - MARELY SANCHEZ - 07/30/2024 7:54 AM EDT Patient scheduled for nurse visit 07/30/24 to receive PPD testing. Please place order at this time. Marely Sanchez LPN [facility]03-25-2025 Miscellaneous Notes* Telephone Encounter - MARELY SANCHEZ - 07/30/2024 7:54 AM EDT Patient scheduled for nurse visit 07/30/24 to receive PPD testing. Please place order at this time. Marely Sanchez LPN documented in this encounterFlower Hospital03-01-2025 [id number]-2 (AGENT OF COVID-19) RNA: Not detected INFLUENZA A RNA: Not detected INFLUENZA B RNA: Not detected RESPIRATORY SYNCYTIAL VIRUS (RSV) RNA: Not detectedGood Samaritan HospitalComment on above:Performed By: #### [id number] ####[facility] LABCLIA [id number] [address] OF [id number] NoteHNO ID: [id number] Author: JANELLE WELDON APRN.WELLNESS INSTRUCTOR Service: ? Author Type: Nurse Practitioner Type: Progress Notes Filed: 07/06/2024 11:46 Note Text: Subjective The history is provided by the patient. No tube operator was used. KEITH Meyers is a 24 year old female who presents today for CC of cough, congestions, runny nose for 10 days. 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 She was [...] have confirmed and edited as necessary, the [facility] Review of Systems Constitutional: Negative [...] detail warranting prompt ER evaluation. Janelle Weldon APRN.LACEYGood Samaritan Hospital03-01-2025 History of Present illness Narrative* Janelle Weldon APRN.[facility] - 07/06/2024 11:42 AM EST Subjective The history is provided by the patient. No tube operator was used. HPI Nan Meyers is a 24 year old female who presents today for CC of cough, congestions, runny nose for 10 days. 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 She was [...] have confirmed and edited as necessary, the [facility] Review of Systems Constitutional: Negative [...] indetail warranting prompt ER evaluation. Janelle Weldon APRN.CNP documented in this encounterF[facility] Hospital03-01-2025 Instructions* Patient Instructions* Janelle Weldon APRN.CNP [...] breath, inability to swallow. documented in this encounterFlower Hospital02-25-2025 NoteHNO ID: [id number] Author: CARLOS SALAZAR PA-C Service: ? Author Type: Physician Indian Blanket Weaver Type: Progress Notes Filed: 07/02/2024 17:38 Note Text: This note was created using Flywheel Sportster. Subjective Nan Meyers is a 24 year [...] J02.9 - PREDNISONE 20 MG TABLET JAMMIE [facility]02-25-2025 History of Present illness Narrative* Carlos Salazar PA-C - 07/02/2024 5:24 PM EST This note was created using LivQuik. Subjective Nan Meyers is a 24 year [...] TABLET Carlos Salazar PA-C documented in this encounterFlower Hospital02-11-2025 Instructions* Patient Instructions* Debbi Arceo APRN.CNP [...] illness Debbi Arceo APRN.CNP documented in this encounterFlower Hospital02-11-2025 [id number]-[id number] (AGENT OF COVID-19) RNA: Not detected INFLUENZA A RNA: Not detected INFLUENZA B RNA: Not detected RESPIRATORY SYNCYTIAL VIRUS (RSV) RNA: Not detectedGood Samaritan HospitalComment on above:Performed By: #### [id number] 1 ####[facility] LABCLIA [id number] [address] STATES OF [id number] NoteHNO ID: [id number] Author: DEBBI ARCEO APRN.CNP Service: ? Author Type: Nurse Practitioner Type: Progress Notes Filed: 06/18/2024 12:02 Note Text: Subjective HPI Nan Meyers is a 24 year old female who presents with cough, chills, nausea, vomiting and headache for the past 3 days. 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 Author Type: Nurse Practitioner Type: Progress Notes Filed: 05/10/2024 10:00 Note Text: Chief Complaint Patient presents with: Physical: Needs for new job HPI Nan Meyers is a 24 year old female who presents here today for Above Complaints. Nan is an established patient of myself. Concerns today.. 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 [...] referral. I also discussed with patient that primary care sales representative may be beneficial. Patient was educated on [...] Vaccine(1) due on 11/04/2024 Covid-19 Vaccine( - 2023- season) due on 05/10/2025 Hepatitis B Vaccine Completed HPV Vaccine Completed Hepatitis C Screening Discontinued HIV Screening Discontinued ASSESSMENT/ (more content not included)...[facility]01-03-2025 History of Present illness Narrative* Marisa William, LUIS CARLOS.WELLNESS INSTRUCTOR - 05/10/2024 9:21 AM EST Chief Complaint Patient presents with: Physical: Needs for new job HPI Nan Meyers is a 24 year old female who presents here today for Above Complaints. Nan is an established patient of myself. Concerns today.. 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 [...] referral. I also discussed with patient that primary care sales representative may be beneficial. Patient was educated on [...] Vaccine(1) due on 11/04/2024 Covid-19 Vaccine( - 2023- season) due on 05/10/2025 Hepatitis B Vaccine [...] Patient agreeable to treatment plan. Marisa Pro APRN.WELLNESS INSTRUCTOR [address] [place] [address] documented in this encounterFlower Hospital09-30-2024 NoteHNO ID: [id number] Author: NAINA NICHOLS APRN.WELLNESS INSTRUCTOR Service: ? Author Type: Nurse Practitioner Type: [...] Patient agreeable to treatment plan. Naina Nichols APRN.[facility]09-30-2024 History of Present illness Narrative* Naina Nichols APRN.[facility] - 02/05/2024 10:54 AM EDT CC: Patient [...] Patient agreeable to treatment plan. Naina Nichols APRN.LACEY documented in this encounterFlower Hospital07-23-2024 NoteHNO ID: [id number] Author: STEF GUEVARA PA Service: ? Author Type: Physician Indian Blanket Weaver Type: Progress Notes Filed: 11/28/2023 13:48 Note Text: This note was created using LivQuik. Subjective Nan Meyers is a 23 year [...] detail warranting prompt ER evaluation. Stef Guevara [facility]07-23-2024 History of Present illness Narrative* Stef Guevara, JAMMIE - 11/28/2023 1:40 PM EDT This note was created using LivQuik. Subjective Nan Meyers is a 23 year [...] ER evaluation. JAMMIE Farris documented in this encounterFlower Hospital06-28-2024 NoteHNO ID: [id number] Author: BELTRAN CARREON APRN.WELLNESS INSTRUCTOR Service: ? Author Type: Nurse Practitioner Type: Progress Notes Filed: 11/03/2023 08:20 Note Text: Subjective HPI Nontoxic-appearing female presents urgent care chief complaint right thigh pain. Duration of symptoms 2 days. Associated symptoms right thigh pain. No known injury. Has had leg pain in the past this feels similar. Does not know if they are related to work. 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 No numbness no tingling. [...] referral. I also discussed with patient that primary care sales representative may be beneficial. Patient was educated on [...] of care. This note was generated using Intrinsity software. It may contain errors in wording, punctuation, or spelling. Beltran Carreon APRN.[facility]06-28-2024 History of Present illness Narrative* Beltran Carreon APRN.WELLNESS INSTRUCTOR - 11/03/2023 8:03 AM EDT Images from the original note were not included. Subjective HPI Nontoxic-appearing female presents urgent care chief complaint right thigh pain. Duration of symptoms 2 days. Associated symptoms right thigh pain. No known injury. Has had leg pain in the past this feels similar. Does not know if they are related to work. 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 No numbness no tingling. [...] referral. I also discussed with patient that primary care sales representative may be beneficial. Patient was educated on [...] of care. This note was generated using Intrinsity software. It may contain errors in wording, punctuation, or spelling. Beltran Carreon APRN.LACEY documented in this encounterFlower Hospital04-26-2024 NoteHNO ID: [id number] Author: MARISA WILLIAM APRN.CNP Service: ? Author Type: Nurse Practitioner Type: Progress Notes Filed: 09/01/2023 14:29 Note Text: Chief Complaint Patient presents with: physical HPI aNn Meyers is a 23 year old female who presents here today for Above Complaints. Nan is an established patient of Dr. Joiner, Do and myself. Concerns today... 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 Has paperwork to fill out. 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 Nan is an established patient of Dr. Joiner, and myself. Concerns today... 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 Has paperwork to fill out. 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 No concerns. - immunization record printed for employer. RTO annually and as needed. Prescription instructions reviewed with patient as applicable. Potential red flag symptoms discussed with the patient. Reviewed appropriate action plan to take if red flag symptoms occur. Patient agreeable to treatment plan. Marisa Pro APRN.LACEY [address] [place] [address] documented in this encounterFlower Hospital02-27-2024 History of Present illness Narrative* Naina [...] upon. Naina Nichols APRN.CNP documented in this encounterFlower Hospital02-19-2024 History of Present illness Narrative* May [...] My Chart. MDM: Patient presented to the [facility] for viral testing. Nan Meyers has symptoms [...] A/B & RSV NAAT, ROUTINE May Delaney APRN.WELLNESS INSTRUCTOR documented in this encounterFlower Hospital12-14-2023 History of Present illness Narrative* Kj [...] Wt 62.1 kg (137 lb) LMP 10/18/2022 IyH244% BMI 25.70 kg/m PHYSICAL EXAM: GEN: pleasant, [...] improving. Kj Amaya MD documented in this encounterFlower Hospital11-22-2023 History of Present illness Narrative* Marisa William APRN.WELLNESS INSTRUCTOR - 03/29/2023 7:03 AM EST Chief Complaint Patient presents with: Physical HPI Nan Meyers is a 23 year old female who presents here today for Above Complaints. Nan is establishing care with our PCP team today from pediatrics. Concerns today.. Routine physical for new job. 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 Eats healthy overall and stays active daily. [...] Seeks Protection) Never done GC (Gonorrhea) Screening (-) Never done Hepatitis C Screening Never done HIV Screening Never done Chlamydia Screening (18-) Never done Depression Assessment Never done Influenza [...] Patient agreeable to treatment plan. Marisa Pro APRN.WELLNESS INSTRUCTOR [address] [place] [address] documented in this encounterFlower [facility] History of Present illness Narrative* Janie Holder PA-C - 02/28/2023 12:35 PM EDT This note was created using LivQuik. Subjective Nan Meyers is a 23 year old female. HPI Patient presents with a chief complaint of nausea over the past day. States yesterday she felt likeshe did throw up at work so she had left. She called off today as well. Denies any abdominal pain. No diarrhea. Denies runny nose, cough, sore throat. 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 She [...] Wt 60.3 kg (133 lb) LMP 10/18/2022 [id number]% BMI 25.77 kg/m Physical Exam Vitals reviewed. [...] ROUTINE Janie Holder PA-C documented in this encounterFlower Hospital09-19-2023 History of Present illness Narrative* Lizette Kinney APRN.WELLNESS INSTRUCTOR - 01/24/2023 5:20 PM EDT This note was created using NoteWriter. Subjective Nan Meyers is a 23 year old female. 23 year old female with PMH ADHD, anxiety presents for complaints of illness. Acute onset 0400 Monday morning +N/V/D +stomach cramps. States that she is correlating it with eating food from [employer] Monday night. Endorses that today she has complete resolvement of symptoms. Denies fever or chills here Denies N/V/D today Endorses she is here for a work note. States that her work threatened termination without medical excuse. The history is provided by the patient. No tube operator was used. Vomiting This is a new [...] today Requesting work note Provided Lizette Kinney APRN.LACEY documented in this encounterFlower Hospital09-14-2023 History of Present illness Narrative* Kj Amaya MD - 01/19/2023 2:41 PM EDT Patient presents with: Pain: chest pain x 3-4 days, off and on HPI: chest pain: Duration: 3-4 days Location: right mid chest Character: sharp, intermittent, lasts 1 minute then resolves Radiation: No. 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 Kj Amaya MD documented in this encounterFlower Hospital06-20-2023 History of Present illness Narrative* Janie Holder PA-C - 10/25/2022 2:49 PM EDT This note was created using [employer]. Subjective Nan Meyers is a 22 year [...] Wt 55.9 kg (123 lb 3.2 oz) LMP10/18/2022 SpO2 97% BMI 23.87 kg/m Physical Exam [...] plan. Janie Holder PA-C documented in this encounterFlower Hospital06-20-2023 Instructions* Patient Instructions* Janie Holder PA-C - 10/25/2022 2:20 PM EDT May take 600mg of ibuprofen every 6-8 hours and tylenol 500-1000mg every 4-6 hours(max dose 4000 mga day) Trial flonase and zyrtec for fluid in ear. If not better follow up with pcp. documented in this encounterFlower Hospital05-08-2023 History of Present illness Narrative* Lizette Kinney APRN.WELLNESS INSTRUCTOR - 09/12/2022 3:30 PM EDT This note was created using LivQuik. Subjective Nan Meyers is a 22 year old female. 22 year old female with PMH ADHD and anxiety presents for complaints of illness. Acute onset 5 days ago +stuffy nose +sore throat States voice has progressively worsened. +cough Denies SOB or dyspnea Denies abdominal pain Denies N/V/D Has used Ibuprofen and cough drops. 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 States that she is requiring documentation for her job as they are threatening to fire her. Denies inability to handle secretions. Denies muffled voice. The history is provided by the patient. No tube operator was used. Sore Throat This is a [...] week Lizette Kinney APRN.LACEY documented in this encounterFlower Hospital02-23-2023 Instructions* Patient Instructions* Tessa Gallegos - [...] ROUTINE Tessa Gallegos APRN-student documented in this encounterFlower Hospital02-23-2023 History of Present illness Narrative* Debbi Arceo APRN.WELLNESS INSTRUCTOR - 06/30/2022 2:09 PM EST This note was created using LivQuik. Subjective Nan Meyers is a 22 year [...] Discussed expected course of illness TEACHING PROVIDER (Physician/PA/AIRPLANE PILOT) NOTE OF PERSONAL INVOLVEMENT IN CARE: I have personally seen and examined the patient and performed the medical decision-making components. I have reviewed the Advanced Practice Registered Nurse (AIRPLANE PILOT) Student's documentation and verified the findings in the note as written. Any additions or changes are noted in bold/italics. Signature: Debbi Arceo Date: 06/30/2022 Time: 2:29 PM documented in this encounterFlower Hospital10-20-2022 Miscellaneous Notes* Telephone Encounter - Unique Rivas MD - 02/24/2022 4:29 PM EDT Patient's request for medication is as follows: Requested Prescriptions Pending Prescriptions Disp Refills lisdexamfetamine (VYVANSE) 10 mg capsule 30 capsule 0 Sig: Take 1 capsule by mouth once daily for 30 days. Prescription(s) as above. Please process accordingly. Uniuqe Rivas MD * Telephone Encounter - Radha [...] Never done CHLAMYDIA SCREENING (18-24) Never done DEPRESSION ASSESSMENT Never done Radha Kaiser LPN' documented in this encounterFlower Hospital09-23-2022 Miscellaneous Notes* Telephone Encounter - Unique [...] 01/06/2022 Adriana Garces RN documented in this encounterFlower Hospital08-18-2022 Miscellaneous Notes* Telephone Encounter - Unique [...] done Jonn Hardin RN documented in this encounterFlower Hospital08-03-2022 Miscellaneous Notes* Telephone Encounter - Radha [...] done Radha Kaiser LPN documented in this encounterFlower Hospital07-27-2022 Miscellaneous Notes* Telephone Encounter - Angie Maya RN - 12/01/2021 8:48 PM EDT Images from the original note were not included. Symptomatic Caregiver COVID Call Patient Name: Nan Meyers Date of : 2000 Primary Care Physician: Unique Rivas MD Service Date: 12/01/2021 Service Time: 8:48 PM Symptomatic Caregiver COVID Call - confirmed: Yes -Caregiver employee ID: [id number] -Symptom onset: 11/30 Covid Immunization Dates Overdue - COVID-19 VACCINE (1) Overdue - never done No completion, postpone, frequency change, or communication history exists for this topic. Recent travel outside [place]: No Cares for COVID-19 positive patients: [...] Time: 8:48 PM Pager/Contact: documented in this encounterFlower Hospital06-30-2022 History of Present illness Narrative* Unique [...] Continue current medication. - Letter written for portfolio analyst animal - Follow up in 3-6 months for routine ADHD follow up I spent a total of 30 minutes on the date of the service which included preparing to see the patient, [id number] patient care, completing clinical documentation and obtaining and/or reviewing separately obtained history. SIGNATURE: Unique Rivas MD PATIENT NAME: Nan Meyers DATE: November 04, 2021 TIME: 9:56 AM documented in this encounterFlower Hospital06-30-2022 Instructions* Patient Instructions* Unique Rivas MD [...] drinks Go! Be healthy, inside and out! [email or web address] documented in this encounterFlower Hospital05-17-2022 Miscellaneous Notes* Telephone Encounter - Allyn Leach Ma - 09/21/2021 8:04 AM EDT Refill has been sent to the pharmacy for months 09/20/21, 10/20/21 and 11/19/21 documented in this encounterFlower Hospital05-17-2022 Miscellaneous Notes* Telephone Encounter - Allyn [...] done May Shaffer RN documented in this encounterFlower Hospital05-16-2022 Instructions* Patient Instructions* Unique Rivas MD [...] drinks Go! Be healthy, inside and out! [email or web address] documented in this encounterFlower Hospital04-04-2022 History of Present illness Narrative* Kj [...] dentist. Kj Amaya MD documented in this encounterFlower Hospital11-25-2013 History of Past illness Narrative* Problem Noted Date Resolved Date Short stature 04/01/2013 07/09/2021 Overview: April 01, 2013 - bone age is delayed Fracture of left distal radius 04/16/2012 0 06/15/2012 Fracture of radius, distal, right, closed 201104/16/2012 Poor weight gain (0-17) 11/08/2011 07/10/19 22 Constipation 07/26/2011 11/08/2011 documented as of this encounter (statuses as of 08/09/2021) [facility] of [facility] illness Narrative* Problem Noted Date Resolved Date Short stature 04/01/2013 07/09/2021 Overview: April 01, 2013 - bone age is delayed Fracture of left distal radius 04/16/2012 0 06/15/2012 Fracture of radius, distal, right, closed 201104/16/2012 Poor weight gain (0-17) 11/08/2011 07/10/19 22 Constipation 07/26/2011 11/08/2011 documented as of this encounter (statuses as of 09/21/2021) [facility] of [facility] illness Narrative* Problem Noted Date Resolved Date Short stature 04/01/2013 07/09/2021 Overview: April 01, 2013 - bone age is delayed Fracture of left distal radius 04/16/2012 0 06/15/2012 Fracture of radius, distal, right, closed 201104/16/2012 Poor weight gain (0-17) 11/08/2011 07/10/19 22 Constipation 07/26/2011 11/08/2011 documented as of this encounter (statuses as of 09/21/2021) [facility] Narrative* Problem Noted Date Resolved Date Short stature 04/01/2013 07/09/2021 Overview: April 01, 2013 - bone age is delayed Fracture of left distal radius 04/16/2012 0 06/15/2012 Fracture of radius, distal, right, closed 201104/16/2012 Poor weight gain (0-17) 11/08/2011 07/10/19 22 Constipation 07/26/2011 11/08/2011 documented as of this encounter (statuses as of 10/22/2021) [facility] Narrative* Problem Noted Date Resolved Date Short stature 04/01/2013 07/09/2021 Overview: April 01, 2013 - bone age is delayed Fracture of left distal radius 04/16/2012 0 06/15/2012 Fracture of radius, distal, right, closed 201104/16/2012 Poor weight gain (0-17) 11/08/2011 07/10/19 22 Constipation 07/26/2011 11/08/2011 documented as of this encounter (statuses as of 11/18/2021) [facility] Narrative* Problem Noted Date Resolved Date Short stature 04/01/2013 07/09/2021 Overview: April 01, 2013 - bone age is delayed Fracture of left distal radius 04/16/2012 0 06/15/2012 Fracture of radius, distal, right, closed 201104/16/2012 Poor weight gain (0-17) 11/08/2011 07/10/19 22 Constipation 07/26/2011 11/08/2011 documented as of this encounter (statuses as of 12/02/2021) [facility] Narrative* Problem Noted Date Resolved Date Short stature 04/01/2013 07/09/2021 Overview: April 01, 2013 - bone age is delayed Fracture of left distal radius 04/16/2012 0 06/15/2012 Fracture of radius, distal, right, closed 201104/16/2012 Poor weight gain (0-17) 11/08/2011 07/10/19 22 Constipation 07/26/2011 11/08/2011 documented as of this encounter (statuses as of 12/08/2021) [facility] Narrative* Problem Noted Date Resolved Date Short stature 04/01/2013 07/09/2021 Overview: April 01, 2013 - bone age is delayed Fracture of left distal radius 04/16/2012 0 06/15/2012 Fracture of radius, distal, right, closed 201104/16/2012 Poor weight gain (0-17) 11/08/2011 07/10/19 22 Constipation 07/26/2011 11/08/2011 documented as of this encounter (statuses as of 12/23/2021) [facility] Narrative* Problem Noted Date Resolved Date Short stature 04/01/2013 07/09/2021 Overview: April 01, 2013 - bone age is delayed Fracture of left distal radius 04/16/2012 0 06/15/2012 Fracture of radius, distal, right, closed 201104/16/2012 Poor weight gain (0-17) 11/08/2011 07/10/19 22 Constipation 07/26/2011 11/08/2011 documented as of this encounter (statuses as of 12/28/2021) [facility] Narrative* Problem Noted Date Resolved Date Short stature 04/01/2013 07/09/2021 Overview: April 01, 2013 - bone age is delayed Fracture of left distal radius 04/16/2012 0 06/15/2012 Fracture of radius, distal, right, closed 201104/16/2012 Poor weight gain (0-17) 11/08/2011 07/10/19 22 Constipation 07/26/2011 11/08/2011 documented as of this encounter (statuses as of 01/06/2022) [facility] Narrative* Problem Noted Date Resolved Date Short stature 04/01/2013 07/09/2021 Overview: April 01, 2013 - bone age is delayed Fracture of left distal radius 04/16/2012 0 06/15/2012 Fracture of radius, distal, right, closed 201104/16/2012 Poor weight gain (0-17) 11/08/2011 07/10/19 22 Constipation 07/26/2011 11/08/2011 documented as of this encounter (statuses as of 01/21/2022) [facility] Narrative* Problem Noted Date Resolved Date Short stature 04/01/2013 07/09/2021 Overview: April 01, 2013 - bone age is delayed Fracture of left distal radius 04/16/2012 0 06/15/2012 Fracture of radius, distal, right, closed 201104/16/2012 Poor weight gain (0-17) 11/08/2011 07/10/19 22 Constipation 07/26/2011 11/08/2011 documented as of this encounter (statuses as of 01/24/2022) [facility] Narrative* Problem Noted Date Resolved Date Short stature 04/01/2013 07/09/2021 Overview: April 01, 2013 - bone age is delayed Fracture of left distal radius 04/16/2012 0 06/15/2012 Fracture of radius, distal, right, closed 201104/16/2012 Poor weight gain (0-17) 11/08/2011 07/10/19 22 Constipation 07/26/2011 11/08/2011 documented as of this encounter (statuses as of 01/25/2022) [facility] Narrative* Problem Noted Date Resolved Date Short stature 04/01/2013 07/09/2021 Overview: April 01, 2013 - bone age is delayed Fracture of left distal radius 04/16/2012 0 06/15/2012 Fracture of radius, distal, right, closed 201104/16/2012 Poor weight gain (0-17) 11/08/2011 07/10/19 22 Constipation 07/26/2011 11/08/2011 documented as of this encounter (statuses as of 01/28/2022) [facility] Narrative* Problem Noted Date Resolved Date Short stature 04/01/2013 07/09/2021 Overview: April 01, 2013 - bone age is delayed Fracture of left distal radius 04/16/2012 0 06/15/2012 Fracture of radius, distal, right, closed 201104/16/2012 Poor weight gain (0-17) 11/08/2011 07/10/19 22 Constipation 07/26/2011 11/08/2011 documented as of this encounter (statuses as of 02/24/2022) [facility] Narrative* Problem Noted Date Resolved Date Short stature 04/01/2013 07/09/2021 Overview: April 01, 2013 - bone age is delayed Fracture of left distal radius 04/16/2012 0 06/15/2012 Fracture of radius, distal, right, closed 201104/16/2012 Poor weight gain (0-17) 11/08/2011 07/10/19 22 Constipation 07/26/2011 11/08/2011 documented as of this encounter (statuses as of 06/30/2022) [facility] Narrative* Problem Noted Date Resolved Date Short stature 04/01/2013 07/09/2021 Overview: April 01, 2013 - bone age is delayed Fracture of left distal radius 04/16/2012 0 06/15/2012 Fracture of radius, distal, right, closed 201104/16/2012 Poor weight gain (0-17) 11/08/2011 07/10/19 22 Constipation 07/26/2011 11/08/2011 documented as of this encounter (statuses as of 07/01/2022) [facility] Narrative* Problem Noted Date Resolved Date Short stature 04/01/2013 07/09/2021 Overview: April 01, 2013 - bone age is delayed Fracture of left distal radius 04/16/2012 0 06/15/2012 Fracture of radius, distal, right, closed 201104/16/2012 Poor weight gain (0-17) 11/08/2011 07/10/19 22 Constipation 07/26/2011 11/08/2011 documented as of this encounter (statuses as of 09/13/2022) [place] [address]-25-2013 History of Past illness Narrative* Problem Noted Date Resolved Date Short stature 04/01/2013 07/09/2021 Overview: April 01, 2013 - bone age is delayed Fracture of left distal radius 04/16/2012 0 06/15/2012 Fracture of radius, distal, right, closed 201104/16/2012 Poor weight gain (0-17) 11/08/2011 07/10/19 22 Constipation 07/26/2011 11/08/2011 documented as of this encounter (statuses as of 10/26/2022) [facility] Narrative* Problem Noted Date Diagnosed Date Resolved Date Short stature 04/01/2013 07/09/2021 Overview: April 01, 2013 - bone age is delayed Fracture of left distal radius 04/16/2012 06/15/2012 Fracture of radius, distal, right, closed 03/31/2012 04/16/2012 Poor weight gain (0-17) 11/08/2011 03/0 08/2021 Constipation 07/26/2011 11/08/2011 documented as of this encounter (statuses as of 01/19/2023) [facility] Narrative* Problem Noted Date Diagnosed Date Resolved Date Short stature 04/01/2013 07/09/2021 Overview: April 01, 2013 - bone age is delayed Fracture of left distal radius 04/16/2012 06/15/2012 Fracture of radius, distal, right, closed 03/31/2012 04/16/2012 Poor weight gain (0-17) 11/08/2011 03/0 08/2021 Constipation 07/26/2011 11/08/2011 documented as of this encounter (statuses as of 01/25/2023) [facility] Narrative* Problem Noted Date Diagnosed Date Resolved Date Short stature 04/01/2013 07/09/2021 Overview: April 01, 2013 - bone age is delayed Fracture of left distal radius 04/16/2012 06/15/2012 Fracture of radius, distal, right, closed 03/31/2012 04/16/2012 Poor weight gain (0-17) 11/08/2011 03/0 08/2021 Constipation 07/26/2011 11/08/2011 documented as of this encounter (statuses as of 02/28/2023) [facility] Narrative* Problem Noted Date Diagnosed Date Resolved Date Short stature 04/01/2013 07/09/2021 Overview: April 01, 2013 - bone age is delayed Fracture of left distal radius 04/16/2012 06/15/2012 Fracture of radius, distal, right, closed 03/31/2012 04/16/2012 Poor weight gain (0-17) 11/08/2011 03/0 08/2021 Constipation 07/26/2011 11/08/2011 documented as of this encounter (statuses as of 03/29/2023) [facility] Narrative* Problem Noted Date Diagnosed Date Resolved Date Short stature 04/01/2013 07/09/2021 Overview: April 01, 2013 - bone age is delayed Fracture of left distal radius 04/16/2012 06/15/2012 Fracture of radius, distal, right, closed 03/31/2012 04/16/2012 Poor weight gain (0-17) 11/08/2011 03/0 08/2021 Constipation 07/26/2011 11/08/2011 documented as of this encounter (statuses as of 04/21/2023) [facility] Narrative* Problem Noted Date Diagnosed Date Resolved Date Short stature 04/01/2013 07/09/2021 Overview: April 01, 2013 - bone age is delayed Fracture of left distal radius 04/16/2012 06/15/2012 Fracture of radius, distal, right, closed 03/31/2012 04/16/2012 Poor weight gain (0-17) 11/08/2011 03/0 08/2021 Constipation 07/26/2011 11/08/2011 documented as of this encounter (statuses as of 06/26/2023) [facility] Narrative* Problem Noted Date Diagnosed Date Resolved Date Short stature 04/01/2013 07/09/2021 Overview: April 01, 2013 - bone age is delayed Fracture of left distal radius 04/16/2012 06/15/2012 Fracture of radius, distal, right, closed 03/31/2012 04/16/2012 Poor weight gain (0-17) 11/08/2011 03/0 08/2021 Constipation 07/26/2011 11/08/2011 documented as of this encounter (statuses as of 07/05/2023) [facility]Dis[facility] summary Author Arnoldo Harding [facility] January 30, 2023 8:53am Note Date/Time January 30, 2023 8:51am [facility] Medical Records Department [address] [place] [address] Emergency Department Summary 01/30/23 MR#: [id number] Acct: [id number] Name: NAN MEYERS Rep #:[id number] : [...] as well. She does not see an ELECTRONIC EQUIPMENT REPAIRER regularly but wants to start control again. PFSH PFS Medical History ADHD Anxiety Hemoperitoneum Home Medications [...] was also recommended to follow-up with an ELECTRONIC EQUIPMENT REPAIRER. She was given the number to the [facility] on-call at her request. I feel [...] positive home , and follow-up with an ELECTRONIC EQUIPMENT REPAIRER soon as possible. Return instructions to the [...] your Primary Care Provider. Call [facility] ([phone]) or report to the closest Emergency Room. Call 911 if necessary. 01/30/23 0853 <Electronically signed by Arnoldo Harding MD> Cosigner Signature (if applicable): CC: Dr. Unique Rivas MD ~ Signed [facility] Work Phone: Evaluation note* Diagnosis Toothache- Primary Unspecified disorder of the teeth and supporting structures [facility] Diagnosis Attention deficit hyperactivity disorder (ADHD), unspecified ADHD type- Primary [facility] Diagnosis Attention deficit hyperactivity disorder (ADHD), unspecified ADHD type documented [facility]* Diagnosis Attention deficit hyperactivity disorder (ADHD), unspecified ADHD type [facility] Diagnosis Attention deficit hyperactivity disorder (ADHD), predominantly inattentive type- Primary Anxiety Anxiety state, unspecified documented [facility]* Diagnosis Suspected 2019 novel coronavirus infection- Primary documented [facility]* Diagnosis Attention deficit hyperactivity disorder (ADHD), unspecified ADHD type [facility]* Diagnosis Attention deficit hyperactivity disorder (ADHD), unspecified ADHD type [facility]* Diagnosis Encounter for immunization- Primary Need for other specified prophylactic vaccination against single bacterial disease [facility] Encounter for PPD skin test reading- Primary Other follow-up examination Screening-pulmonary TB Screening examination for pulmonary tuberculosis documented in this encounter [facility] note* Diagnosis Encounter for PPD skin test reading- Primary Other follow-up examination [facility] Diagnosis Attention deficit hyperactivity disorder (ADHD), [...] encounter [facility] noteNo assessment information availableWAultman [facility] Work Phone: [facility]* Diagnosis Onset Date Resolution Status Contraception management acu te Contraception management [facility] Work Phone: Evaluation note* Diagnosis Nausea- [...] headache type- Primary [facility]* Diagnosis URI, acute- Primary Acute upper respiratory infections of unspecified site documented in this encounter [facility] note* Diagnosis Wellness examination- Primary Family history of hypothyroidism Family history of other endocrine and metabolic diseases Right leg pain Pain in limb [facility]* Diagnosis Flu-like symptoms- Primary Other general symptoms documented [facility]* Diagnosis Sore throat- Primary Acute pharyngitis Acute pharyngitis, unspecified etiology documented in this encounter [facility] note* Diagnosis Rhinosinusitis- Primary Unspecified sinusitis (chronic) documented [facility]* Diagnosis Screening-pulmonary TB- Primary Screening examination for pulmonary tuberculosis [facility] Attachments The following attachments cannot be sent through Care Everywhere. * : When to Call (After 20 Weeks): General Info (Hong Konger) * Round Ligament Pain (Hong Konger) * : Abdominal Pain ([place] Konger) documented in [facility]Pro[facility] note Author Glendy Arvizu [facility] Note Date/Time November 14, 2024 12:0 3pm [facility] [address] [place] [address], [address] [place] [address] OFFICE VISIT Date of Service: 11/14/24 MR#: [id number] Acct: [id number] Name: NAN MEYERS Rep #: [id number] : 2000 Provider: NURYS Arvizu Age/Sex: 24/F [place] [facility] [place]: Signed Intake Vital Signs 09/16/24 11:33 11/02/24 09:08 11/14/24 11:40 Height 5 ft 5 ft 5 ft Weight: 143 lb 8 oz BMI 28.0 BP 128/71 H Intake Visit Reasons: 17wk ob Chief Complaint: 17wk OB 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: No Is patient in pain?: No Allergies No Known Allergies Allergy (Verified 11/14/24 11:34) Medications ?Medication ?Instructions ?Recorded ?Confirmed ?Type docosahexaenoic acid 200 mg mg PO 08/27/24 11/14/24 Hi story capsule ( DHA) ondansetron HCl 4 mg tablet 4 mg PO Q4H #60 tabs 10/1011/14/24 Rx Last Menstrual Period: 07/17/24 : No PFSH PFSH Medical History ADHD Anxiety , ectopic, tubal Surgical History History of ectopic Family History Mother Thyroid disorder Adopted Hypertension Hyperlipidemia Grandmother Hypertension Grandfather Hypertension Father Asthma Social History adopted: No household members: significant other and other details: Brother & his baby current occupational status: employed current occupation: [employer] current occupational exposures/hazards: No pets and animals: [...] physical activity do you participate in: none christopher/judaism: None seatbelt use: always do you feel safe at home: Yes additional social history: BF: Fausto - [employer] History 2 Elective abortions Hx Para 0 Spontaneous abortions 0 Hx # Term Pregnancies Ectopic pregnancies 1 Hx # Pregnancies Multiple births # of living children 0 Past Pregnancies Del. Date Name GA/Weeks Outcome Route Bth Weight Infant Gen Labor Lgth Anesthesia Del Locatn Provider FOB 09/08/20 4 ectopic SM Delivery Date: 09/08/20 Last Updated by: Farzaneh Deal RN Right ovarian tubal HPI 17wk ob Details: NAN MEYERS is a 24 year old who presents for routine OB visit. OB Visit [facility] Calculator Estimated Delivery Date Method Current WG Current Estimate 04/23/25 LMP (Certain) 17w 1d Other Estimates 04/23/25 Ultrasound #1 17w 1d Expected Delivery Route/Plan Labor Preferences- CB/BF classes: [...] list details Initial Weight: Not Recorded Date -?-?-?-?-?-?-?-?-?-?-?-?- EGA Weight BP Urine Prot -?-?-?-?-?-?-?-?-?-?-?-?- Glucose FHR FuHt Pres Dilation -?-?-?-?-?-?-?-?-?-?-?-?- Effaced St Visit Note 09/16/24 -?-?-?-?-?-?-?-?-?-?-?-?- 8w 5d 142 lb 2 oz -?-?-?-?-?-?-?-?-?-?-?-?- 168 -?-?-?-?-?-?-?-?-?-?-?-?- JV- CRL consist ent with LMP. Desires nipt at 10 weeks. JV- CRL consistent with LMP . suspect arcuate shaped uterus. Desires nipt at 10 weeks. 10/15/24 -?-?-?-?-?-?-?-?-?-?-?-?- 12w 6d 143 lb 6 oz 116/70 Nega tive -?-?-?-?-?-?-?-?-?-?-?-?- Negative 147 -?-?-?-?-?-?-?-?-?-?-?-?- MH-No VB. Vomit ed up zithromax for chlamydia. Will retreat and instructed on use of zofran prior. Br US confirm FHT 11/14/24 -?-?-?-?-?-?-?-?-?-?-?-?- 17w 1d 143 lb 8 oz 128/71 Trac e -?-?-?-?--?-?-?-?-?-?-?-?- Negative 150 -?-?-?-?-?-?-?-?-?-?-?-?- KW- ER follow up for vaginal bleeding. Dx with possible placenta previa but unsure of severity. still having some spotting in the mornings with occasional cramping. 10 dip-neg. Did get the rest of the atb for chlamydia in the ER and was able to keep it down. will repeat GCC today. Discussed importance of MFM anatomy US to look further at placenta. Said she is waiting for insurance-discussed options, will consider and schedule with MFM. Also is considering moving to a practice in [place] due to moving to that area. ACOG First Trimester First Trimester: Desire for , Alcohol, Tobacco Cessation, Illicit/Recreational Drug/Substance Use, Intimate Partner Violence, Barriers to care, Unstable Housing, Communication Barriers, Environmental/Work Hazards, Anticipated Course of Care, Toxoplasmosis Precations, Use of Any medications, Sexual activity, Exercise, Dental Care, Sauna/Hot tub use, Seat Belt use, Childbirth classes/Hospital facilities, Travel, Indications for Ultrasound and Screening for Aneuploidy; Discussed ROS Const Reports system reviewed and no additional complaints, except as documented Eyes Reports system reviewed and no additional complaints, except as documented ENT Reports system reviewed and no additional complaints, except as documented Card Reports system reviewed and no additional complaints, except as documented Resp Reports system reviewed and no additional complaints, except as documented GI Reports system reviewed and no additional complaints, except as documented, Denies nausea and Denies vomiting Reports system reviewed and no additional complaints, except as documented Musc Reports system reviewed and no additional complaints, except as documented Skin/Breast Reports system reviewed and no additional complaints, except as documented Neuro Yes system reviewed and no additional complaints, except as documented Psych Reports system reviewed and no additional complaints, except as documented Endo Reports system reviewed and no additional complaints, except as documented Ozzie/Lymph Reports system reviewed and no additional complaints, except as documented Aller/Immun Reports system reviewed and no additional complaints, except as documented Exam Const General: cooperative, healthy appearing and no acute distress Orientation: alert, awake and oriented x3 Neck Neck: normal visual inspection and full ROM Resp Effort & Inspection: normal respiratory effort, able to speak in complete sentences and symmetric chest movement GI Inspection: normal to inspection Palpation: soft and other Other: gravid Skin General: no rashes or lesions noted Neuro General: patient alert, patient awake and patient oriented x3 Cognition: normal cognition Speech: speech normal Gait: normal gait Motor: muscle tone normal throughout Extrem General: normal to inspection and full ROM Psych Appearance: grossly normal Mental Status: mental status grossly normal Mood: congruent mood Affect: normal affect Speech and Movement: speech and movement normal Attitude: cooperative Thought Process: normal Thought Content: normal Judgment: judgment good Results POC Urinalysis 2 Dip (Clinic) Office Urine Glucose Negative Last Edit by Meagan Parish on 11/14/24 12:02 Office Urine Protein Trace Last Edit by Meagan Parish on 11/14/24 12:02 Coding Level of Care Code OB Routine Diagnoses Chlamydia infection affecting in first trimester O98.811; A74.9 Trimester: first trimester History of ectopic Z87.59 Supervision of high risk in second trimester O09.92 Trimester: second trimester 17 weeks gestation of Z3A.17 Weeks of gestation: 17 weeks Smoker F17.200 Anxiety F41.9 Attention deficit hyperactivity disorder (ADHD), unspecified ADHD type F90.9 Attention deficit-hyperactivity disorder type: unspecified Assessment and Plan Assessment and Plan (1) Chlamydia infection affecting : Status: Acute Qualifiers: Trimester: first trimester Qualified Code(s): O98.811 - Other maternal infectious and parasitic diseases complicating , first trimester; A74.9 - Chlamydial infection, unspecified Comment: + @ NOB. Treated and vomited med. [place] Rx sent and zofram prior. (2) History of ectopic : Status: Acute Comment: 09/08/20 - surgery by , was in right ovary and still has both tubes. (3) Supervision of high-risk : Status: Acute Qualifiers: Trimester: second trimester Qualified Code(s): O09.92 - Supervision of high risk , unspecified, second trimester Comment: [id number], KELTON 04/23/25, BF: Fausto (4) : Status: Acute Qualifiers: Weeks of gestation: 17 weeks Qualified Code(s): Z3A.17 - 17 weeks gestation of Comment: NIPT low risk (5) Smoker: Status: Acute Comment: Last smoke: 08/25, Exposed to second hand (6) Anxiety: Status: Acute Comment: No meds (7) ADHD: Status: Acute Qualifiers: Attention deficit-hyperactivity disorder type: unspecified Qualified Code(s): F90.9 - Attention-deficit hyperactivity disorder, unspecified type Comment: No meds currently; Vyvanse in high school Orders: Orders POC Urinalysis 2 Dip (Clinic) Today Chlamydia/GC VISHNU aptima Today A74.9 - Chlamydial infection, unspecified, O98.811 - Other maternal infectious and parasitic diseases complicating , first trimester Plan Details Additional Comments: ACOG trimester education reviewed and updated. see problem list details for updated plan management information and see below for orders placed at this visit. GA appropriate handout given. 11/14/24 1203 <Electronically signed by Glendy acosta CNM> Date _ Glendy Arvizu CNM Cosigner Signature: Date (if applicable) CC: ~ [facility] Work Phone: Progress note Author Nereida Garcia [facility] Note Date/Time January 09, 2025 11:04am [facility] [address], [address] [place] [address] OFFICE VISIT Date of Service: 01/09/25 MR#: [id number] Acct: [id number] Name: NAN MEYERS Rep #: [id number] : 2000 Provider: Dr. 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: No Is patient in pain?: No Allergies No Known Allergies Allergy (Verified 01/09/25 10:37) Medications ?Medication ?Instructions ?Recorded ?Confirmed ?Type docosahexaenoic acid 200 mg mg PO 08/27/24 01/09/25 Hi story capsule ( DHA) ondansetron HCl 4 mg tablet 4 mg PO Q4H #60 tabs 10/1001/09/25 Rx Last Menstrual Period: 07/17/24 Zika: Zika virus screening: Negative : No PFSH PFSH Medical History ADHD Anxiety , ectopic, tubal Surgical History History of ectopic Family History Mother Thyroid disorder Adopted Hypertension Hyperlipidemia Grandmother Hypertension Grandfather Hypertension Father Asthma Social History adopted: No household members: significant other and other details: Brother & his baby current occupational status: employed current occupation: [employer] current occupational exposures/hazards: No pets and animals: [...] physical activity do you participate in: none christopher/judaism: None seatbelt use: always do you feel safe at home: Yes additional social history: BF: Edward - [employer] Operator History 2 Elective abortions Hx Para 0 Spontaneous abortions 0 Hx # Term Pregnancies Ectopic pregnancies 1 Hx # Pregnancies Multiple births # of living children 0 Past Pregnancies Del. Date Name GA/Weeks Outcome Route Bth Weight Gen Labor Lgth Anesthesia Del Locatn Provider FOB 09/08/20 4 ectopic SM Delivery Date: 09/08/20 Last Updated by: Farzaneh Deal RN Right ovarian tubal HPI 25 wk ob Details: NAN MEYERS is a 24 year old who presents for routine OB visit. OB Visit KELTON Calculator Estimated Delivery Date Method Current WG Current Estimate 04/23/25 LMP (Certain) 25w 1d Other Estimates 04/23/25 Ultrasound #1 25w 1d Expected Delivery Route/Plan Labor Preferences- CB/BF classes: [...] list details Initial Weight: Not Recorded Date -?-?-?-?-?-?-?-?-?-?-?-?- EGA Weight BP Urine Prot -?-?-?-?-?-?-?-?-?-?-?-?- Glucose FHR FuHt Pres Dilation -?-?-?-?-?-?-?-?-?-?-?-?- Effaced St Visit Note 09/16/24 -?-?-?-?-?-?-?-?-?-?-?-?- 8w 5d 142 lb 2 oz -?-?-?-?-?-?-?-?-?-?-?-?- 168 -?-?-?-?-?-?-?-?-?-?-?-?- JV- CRL consist ent with LMP. Desires nipt at 10 weeks. JV- CRL consistent with LMP . suspect arcuate shaped uterus. Desires nipt at 10 weeks. 10/15/24 -?-?-?-?-?-?-?-?-?-?-?-?- 12w 6d 143 lb 6 oz 116/70 Nega tive -?-?-?-?-?-?-?-?-?-?-?-?- Negative 147 -?-?-?-?-?-?-?-?-?-?-?-?- MH-No VB. Vomit ed up zithromax for chlamydia. Will retreat and instructed on use of zofran prior. Br US confirm FHT 11/14/24 -?-?-?-?-?-?-?-?-?-?-?-?- 17w 1d 143 lb 8 oz 128/71 Trac e -?-?-?-?-?-?-?-?-?-?-?-?- Negative 150 -?-?-?-?-?-?-?-?-?-?-?-?- KW- ER follow up for vaginal bleeding. Dx with possible placenta previa but unsure of severity. still having some spotting in the mornings with occasional cramping. 10 dip-neg. Did get the rest of the atb for chlamydia in the ER and was able to keep it down. will repeat GCC today. Discussed importance of MFM anatomy US to look further at placenta. Said she is waiting for insurance-discussed options, will consider and schedule with MFM. Also is considering moving to a practice in [place] due to moving to that area. 12/12/24 -?-?-?-?-?-?-?-?-?-?-?-?- 21w 1d 154 lb 6 oz 118/66 Nega tive -?-?-?-?-?-?-?-?-?-?-?-?- Negative 145 -?-?-?-?-?-?-?-?-?-?-?-?- JV- still having some spotting. anatomy shows clot at the lower uterine segment. She will need to return for further views and for cervical length. She denies cramping. Starting to feel some small movements and shifts 01/09/25 -?-?-?-?-?-?-?-?-?-?-?-?- 25w 1d 160 lb 9 oz 116/70 Nega tive -?-?-?-?-?-?--?-?-?-?-?-?- Negative 140 25 -?-?-?-?-?-?-?-?-?-?-?-?- SM- no vb feels damp sometimes over the past two weeks good fm. SM- no vb feels damp sometim es over the past two weeks good fm. ROM plus sent ACOG First Trimester First Trimester: Desire for , Alcohol, Tobacco Cessation, Illicit/Recreational Drug/Substance Use, Intimate Partner Violence, Barriers to care, Unstable Housing, Communication Barriers, Environmental/Work Hazards, Anticipated Course of Care, Toxoplasmosis Precations, Use of Any medications, Sexual activity, Exercise, Dental Care, Sauna/Hot tub use, Seat Belt use, Childbirth classes/Hospital facilities, Travel, Indications for Ultrasound and Screening for Aneuploidy; Discussed Second Trimester Second Trimester: Signs and Symptoms of Labor, Selecting a care provider, Reproductive Life Planning & Contreception, Care Planning, Depression/Anxiety and Intimate Partner Violence; Discussed Tobacco Cessation Third Trimester Third Trimester: Pain Management Plans, Labor support person(s), Immediate Larc, Movement Monitoring, Signs and Symptoms of Preeclampsia and Norco Education Results POC Urinalysis 2 Dip (Clinic) Office Urine Glucose Negative Last Edit by Negrita Barrera on 01/09/25 10:38 Office Urine Protein Negative Last Edit by Negrita Barrera on 01/09/25 10:38 Coding Level of Care Code OB Routine Diagnoses Chlamydia infection affecting in first trimester O98.811; A74.9 Trimester: first trimester History of ectopic Z87.59 Supervision of high risk in second trimester O09.92 Trimester: second trimester 25 weeks gestation of Z3A.25 Weeks of gestation: 25 weeks Smoker F17.200 Anxiety F41.9 Attention deficit hyperactivity disorder (ADHD), unspecified ADHD type F90.9 Attention deficit-hyperactivity disorder type: unspecified Assessment and Plan Assessment and Plan (1) Chlamydia infection affecting : Status: Acute Qualifiers: Trimester: first trimester Qualified Code(s): O98.811 - Other maternal infectious and parasitic diseases complicating , first trimester; A74.9 - Chlamydial infection, unspecified Comment: + @ NOB. Treated and vomited med. [place] Rx sent and zofram prior. (2) History of ectopic : Status: Acute Comment: 09/08/20 - surgery by SM, was in right ovary and still has both tubes. (3) Supervision of high-risk : Status: Acute Qualifiers: Trimester: second trimester Qualified Code(s): O09.92 - Supervision of high risk , unspecified, second trimester Comment: [id number], KELTON 04/23/25, BF: Fausto (4) : Status: Acute Qualifiers: Weeks of gestation: 25 weeks Qualified Code(s): Z3A.25 - 25 weeks gestation of Comment: NIPT low risk (5) Smoker: Status: Acute Comment: Last smoke: 08/25, Exposed to second hand (6) Anxiety: Status: Acute Comment: No meds (7) ADHD: Status: Acute Qualifiers: Attention deficit-hyperactivity disorder type: unspecified Qualified Code(s): F90.9 - Attention-deficit hyperactivity disorder, unspecified type Comment: No meds currently; Vyvanse in high school Orders: Orders POC Urinalysis 2 Dip (Clinic) Today O09.92 - Supervision of high risk , unspecified, second trimester CBC W/Diff, Automated Today O09.92 - Supervision of high risk , unspecified, second trimester Glucose Challenge Gest 1H 50g Today O09.92 - Supervision of high risk , unspecified, second trimester, Z13.1 - Encounter for screening for diabetes mellitus HIV Today O09.92 - Supervision of high risk , unspecified, second trimester Syphilis Antibodies Today O09.92 - Supervision of high risk , unspecified, second trimester (ROM) Rupture Of Membranes Today N89.8 - Other specified noninflammatory disorders of vagina, O26.892 - Other specified related conditions, second trimester 01/09/25 1104 <Electronically signed by Neerida stover MD> Date _ Nereida Garcia MD Cosign Signature: Date (if applicable) CC: ~ [facility] Work Phone: Reason for referral (narrative)No reason for referral information availableWAultman Hospital Work Phone: Health Concerns Infection Onset Date [...] 11:29 am History of ectopic September 16 025 11:29am September 16, 2024 11:29 am Smoker [...] 2024 11:29 am History of ectopic September 16, 025 11:29am September 16, 2024 11:29 am Smoker September 16, 2024 11:29 am Supervision of high-risk September 052024 11:29am ADHD October 15, 2024 8:30 am Anxiety October 15, 2024 8:30 am Chlamydia infection affecting October 15, 2024 8:30am History of ectopic October 15, 2024 8:30am October 15, 2024 8:30 am Smoker October 15, 2024 8:30 am Supervision of high-risk October 15, 2024 8:30am Chief Complaint Admit Date Est Care/Urine test/ Vitals August 27, 2024 9:43am New OB, LMP 07/17, KELTON 04/23September 16 11:29am 13wk ob October 15, 2024 8:30 am vag bleed preg November 02, 2024 9:07 am Chief Complaint Admit Date Est Care/Urine test/ Vitals August 27, 2024 9:43am New OB, LMP 07/17, KELTON 04/23September 16 11:29am 13wk ob October 15, 2024 8:30 am vag bleed preg November 02, 2024 9:07 am 17wk ob November 14, 2024 11:3 1am Reason for Visit Admit Date ADHD August 27, 2024 9:4 3am Anxiety August 27, 2024 9:4 3am History of ectopic August 27, 2024 9:43am August 27, 2024 9:4 3am Smoker August 27, 2024 9:4 3am Supervision of high-risk August 27, 2024 9:43am ADHD September 16, 2024 11:29 am Anxiety September 16, 2024 11:29 am History of ectopic September 16, 11:29am September 16, 2024 11:29 am Smoker September 16, 2024 11:29 am Supervision of high-risk September 052024 11:29am ADHD October 15, 2024 8:30 am Anxiety October 15, 2024 8:30 am Chlamydia infection affecting October 15, 2024 8:30am History of ectopic October 15, 2024 8:30am October 15, 2024 8:30 am Smoker October 15, 2024 8:30 am Supervision of high-risk October 15, 2024 8:30am ADHD November 14, 2024 11:3 1am Anxiety November 14, 2024 11:3 1am Chlamydia infection affecting November 14, 2024 11:31am History of ectopic November 14, 2024 11:31am November 14, 2024 11:3 1am Smoker November 14, 2024 11:3 1am Supervision of high-risk November 14, 2024 11:31am Chief Complaint Admit Date Est Care/Urine test/ Vitals August 27, 2024 9:43am New OB, LMP 07/17, KELTON 04/23September 16 11:29am 13wk ob October 15, 2024 8:30 am vag bleed preg November 02, 2024 9:07 am 17wk ob November 14, 2024 11:3 1am 21wk ob December 12, 2024 1:0 3pm Reason for Visit Admit Date ADHD August [...] Supervision of high-risk October 15, 2024 8:30am ADHD November 14, 2024 11:3 1am Anxiety November 14, 2024 11:3 1am Chlamydia infection affecting November 14, 2024 11:31am History of ectopic November 14, 2024 11:31am November 14, 2024 11:3 1am Smoker November 14, 2024 11:3 1am Supervision of high-risk November 14, 2024 11:31am ADHD December 12, 2024 1:0 3pm Anxiety December 12, 2024 1:0 3pm Chlamydia infection affecting December 12, 2024 1:03pm History of ectopic December 12, 2024 1:03pm December 12, 2024 1:0 3pm Smoker December 12, 2024 1:0 3pm Supervision of high-risk Augus t 2024 1:03pm Chief Complaint Admit Date New OB, LMP 07/17, KELTON 04/23September 16 11:29am 13wk ob October 15, 2024 8:30 am vag bleed preg November 02, 2024 9:07 am 17wk ob November 14, 2024 11:3 1am 21wk ob December 12, 2024 1:0 3pm 25 wk ob January 09, 2025 10:18am Reason for Visit Admit Date ADHD September 16, 2024 11:29 am Anxiety [...] Supervision of high-risk October 15, 2024 8:30am ADHD November 14, 2024 11:3 1am Anxiety November 14, 2024 11:3 1am Chlamydia infection affecting November 14, 2024 11:31am History of ectopic November 14, 2024 11:31am November 14, 2024 11:3 1am Smoker November 14, 2024 11:3 1am Supervision of high-risk November 14, 2024 11:31am ADHD December 12, 2024 1:0 3pm Anxiety December 12, 2024 1:0 3pm Chlamydia infection affecting December 12, 2024 1:03pm History of ectopic December 12, 2024 1:03pm December 12, 2024 1:0 3pm Smoker December 12, 2024 1:0 3pm Supervision of high-risk Augus t 2024 1:03pm ADHD January 09, 2025 10:18am Anxiety January 09, 2025 10:18am Chlamydia infection affecting January 09, 2025 10:18am History of ectopic January 092024 10:18am January 09, 2025 10:18am Smoker January 09, 2025 10:18am Supervision of high-risk Maria Guadalupe landon 2024 10:18am Advance Directives Advance Directive Response Recorded Date/ Time Living Will No January 30, 2023 8:43am Power of Tenter Frame Back Tender No January 8:43am Advance Directive Response Recorded Date/ Time Do you have a Healthcare Power of Tenter Frame Back Tender? No November 02, 2024 9:36am Reason for Referral Specialty Diagnoses / Procedures Referred By Contac t Referred To Contact [facility] Diagnoses Right leg pain Procedures CONSULT TO PHYSICAL THERAPY PHYSICAL THERAPY EVALUATION HIGH COMPLEX 45 MINS Marias William, AIRPL[employer]WELLNESS INSTRUCTOR [address] [place] [address] [facility] [address] [place] [address] Referral ID Status Reason Start Date Expiration Date Visits Requested Visits Authorized [id number] Pending Review Auto-Generat ed Referral 05/10/2024 05/10/2025 [...] or prosecute any alcohol or drug abuse patient.[facility] Hospital[facility] the event this information is protected by the Federal Confidentiality of Alcohol and Drug Abuse Patient Records regulations: The Federal rules restrict any use of the information to criminally investigate or prosecute any alcohol or drug abuse patient.[facility] HospitalIn the event this information is protected by the Federal Confidentiality of Alcohol and Drug Abuse Patient Records regulations: The Federal rules restrict any use of the information to criminally investigate or prosecute any alcohol or drug abuse patient.[facility] Hospital[facility] the event this information is protected by the Federal Confidentiality of Alcohol and Drug Abuse Patient Records regulations: The Federal rules restrict any use of the information to criminally investigate or prosecute any alcohol or drug abuse patient.[facility] Hospital[facility] the event this information is protected by the Federal Confidentiality of Alcohol and Drug Abuse Patient Records regulations: The Federal rules restrict any use of the information to criminally investigate or prosecute any alcohol or drug abuse patient.[facility] Hospital[facility] the event this information is protected by the Federal Confidentiality of Alcohol and Drug Abuse Patient Records regulations: The Federal rules restrict any use of the information to criminally investigate or prosecute any alcohol or drug abuse patient.[facility] the event this information is protected by the Federal Confidentiality of Alcohol and Drug Abuse Patient Records regulations: The Federal rules restrict any use of the information to criminally investigate or prosecute any alcohol or drug abuse patient.[facility] Hospital[facility] the event this information is protected by the Federal Confidentiality of Alcohol and Drug Abuse Patient Records regulations: The Federal rules restrict any use of the information to criminally investigate or prosecute any alcohol or drug abuse patient.[facility] the event this information is protected by the Federal Confidentiality of Alcohol and Drug Abuse Patient Records regulations: The Federal rules restrict any use of the information to criminally investigate or prosecute any alcohol or drug abuse patient.[facility] the event this information is protected by the Federal Confidentiality of Alcohol and Drug Abuse Patient Records regulations: The Federal rules restrict any use of the information to criminally investigate or prosecute any alcohol or drug abuse patient.[facility] Hospital[facility] the event this information is protected by the Federal Confidentiality of Alcohol and Drug Abuse Patient Records regulations: The Federal rules restrict any use of the information to criminally investigate or prosecute any alcohol or drug abuse patient.[facility] HospitalIn the event this information is protected by the Federal Confidentiality of Alcohol and Drug Abuse Patient Records regulations: The Federal rules restrict any use of the information to criminally investigate or prosecute any alcohol or drug abuse patient.[facility] HospitalIn the event this information is protected by the Federal Confidentiality of Alcohol and Drug Abuse Patient Records regulations: The Federal rules restrict any use of the information to criminally investigate or prosecute any alcohol or drug abuse patient.[facility] HospitalIn the event this information is protected by the Federal Confidentiality of Alcohol and Drug Abuse Patient Records regulations: The Federal rules restrict any use of the information to criminally investigate or prosecute any alcohol or drug abuse patient.[facility] HospitalIn the event this information is protected by the Federal Confidentiality of Alcohol and Drug Abuse Patient Records regulations: The Federal rules restrict any use of the information to criminally investigate or prosecute any alcohol or drug abuse patient.[facility] HospitalIn the event this information is protected by the Federal Confidentiality of Alcohol and Drug Abuse Patient Records regulations: The Federal rules restrict any use of the information to criminally investigate or prosecute any alcohol or drug abuse patient.[facility] HospitalIn the event this information is protected by the Federal Confidentiality of Alcohol and Drug Abuse Patient Records regulations: The Federal rules restrict any use of the information to criminally investigate or prosecute any alcohol or drug abuse patient.[facility] HospitalIn the event this information is protected by the Federal Confidentiality of Alcohol and Drug Abuse Patient Records regulations: The Federal rules restrict any use of the information to criminally investigate or prosecute any alcohol or drug abuse patient.[facility] HospitalIn the event this information is protected by the Federal Confidentiality of Alcohol and Drug Abuse Patient Records regulations: The Federal rules restrict any use of the information to criminally investigate or prosecute any alcohol or drug abuse patient.[facility] HospitalIn the event this information is protected by the Federal Confidentiality of Alcohol and Drug Abuse Patient Records regulations: The Federal rules restrict any use of the information to criminally investigate or prosecute any alcohol or drug abuse patient.[facility] HospitalIn the event this information is protected by the Federal Confidentiality of Alcohol and Drug Abuse Patient Records regulations: The Federal rules restrict any use of the information to criminally investigate or prosecute any alcohol or drug abuse patient.[facility] HospitalIn the event this information is protected by the Federal Confidentiality of Alcohol and Drug Abuse Patient Records regulations: The Federal rules restrict any use of the information to criminally investigate or prosecute any alcohol or drug abuse patient.[facility] HospitalIn the event this information is protected by the Federal Confidentiality of Alcohol and Drug Abuse Patient Records regulations: The Federal rules restrict any use of the information to criminally investigate or prosecute any alcohol or drug abuse patient.[facility] HospitalIn the event this information is protected by the Federal Confidentiality of Alcohol and Drug Abuse Patient Records regulations: The Federal rules restrict any use of the information to criminally investigate or prosecute any alcohol or drug abuse patient.[facility] HospitalIn the event this information is protected by the Federal Confidentiality of Alcohol and Drug Abuse Patient Records regulations: The Federal rules restrict any use of the information to criminally investigate or prosecute any alcohol or drug abuse patient.[facility] HospitalIn the event this information is protected by the Federal Confidentiality of Alcohol and Drug Abuse Patient Records regulations: The Federal rules restrict any use of the information to criminally investigate or prosecute any alcohol or drug abuse patient.[facility] HospitalIn the event this information is protected by the Federal Confidentiality of Alcohol and Drug Abuse Patient Records regulations: The Federal rules restrict any use of the information to criminally investigate or prosecute any alcohol or drug abuse patient.[facility] HospitalIn the event this information is protected by the Federal Confidentiality of Alcohol and Drug Abuse Patient Records regulations: The Federal rules restrict any use of the information to criminally investigate or prosecute any alcohol or drug abuse patient.[facility] HospitalIn the event this information is protected by the Federal Confidentiality of Alcohol and Drug Abuse Patient Records regulations: The Federal rules restrict any use of the information to criminally investigate or prosecute any alcohol or drug abuse patient.[facility] HospitalIn the event this information is protected by the Federal Confidentiality of Alcohol and Drug Abuse Patient Records regulations: The Federal rules restrict any use of the information to criminally investigate or prosecute any alcohol or drug abuse patient.[facility] HospitalIn the event this information is protected by the Federal Confidentiality of Alcohol and Drug Abuse Patient Records regulations: The Federal rules restrict any use of the information to criminally investigate or prosecute any alcohol or drug abuse patient.[facility] HospitalIn the event this information is protected by the Federal Confidentiality of Alcohol and Drug Abuse Patient Records regulations: The Federal rules restrict any use of the information to criminally investigate or prosecute any alcohol or drug abuse patient.[facility] HospitalIn the event this information is protected by the Federal Confidentiality of Alcohol and Drug Abuse Patient Records regulations: The Federal rules restrict any use of the information to criminally investigate or prosecute any alcohol or drug abuse patient.[facility] HospitalIn the event this information is protected by the Federal Confidentiality of Alcohol and Drug Abuse Patient Records regulations: The Federal rules restrict any use of the information to criminally investigate or prosecute any alcohol or drug abuse patient.[facility] HospitalIn the event this information is protected by the Federal Confidentiality of Alcohol and Drug Abuse Patient Records regulations: The Federal rules restrict any use of the information to criminally investigate or prosecute any alcohol or drug abuse patient.[facility] HospitalIn the event this information is protected by the Federal Confidentiality of Alcohol and Drug Abuse Patient Records regulations: The Federal rules restrict any use of the information to criminally investigate or prosecute any alcohol or drug abuse patient.[facility] HospitalIn the event this information is protected by the Federal Confidentiality of Alcohol and Drug Abuse Patient Records regulations: The Federal rules restrict any use of the information to criminally investigate or prosecute any alcohol or drug abuse patient.[facility] HospitalIn the event this information is protected by the Federal Confidentiality of Alcohol and Drug Abuse Patient Records regulations: The Federal rules restrict any use of the information to criminally investigate or prosecute any alcohol or drug abuse patient.[facility] Reason for Visit (unrecogniz ed section [...] headache, x 10 days Reason Comments Orders Reason Comments Other Pt used doppler at h ome and measured HR as 55 Care Teams (unrecognized sec tion and content) Marble Worker Relationship Specialty Start Date End Date Unique Rivas MD [address] [place] [address] PCP - General Pediatrics 07/22/13 Marble Worker Relationship Specialty Start Date End Date Unique Rivas MD [address] [place] [address] PCP - General Pediatrics 07/22/13 Marble Worker Relationship Specialty Start Date End Date Unique Rivas MD [address] [facility] [place] [address] PCP - General Pediatrics 07/22/13 Marble Worker Relationship Specialty Start Date End Date Unique Rivas MD [address] [place] [address] PCP - General Pediatrics 07/22/13 Marble Worker Relationship Specialty Start Date End Date Unique Rivas MD [address] [place] [address] PCP - General Pediatrics 07/22/13 Marble Worker Relationship Specialty Start Date End Date Unique Rivas MD [address] [place] [address] PCP - General Pediatrics 07/22/13 Marble Worker Relationship Specialty Start Date End Date Unique Rivas MD [address] [place] [address] PCP - General Pediatrics 07/22/13 Marble Worker Relationship Specialty Start Date End Date Unique Rivas MD [address] [place] [address] PCP - General Pediatrics 07/22/13 Marble Worker Relationship Specialty Start Date End Date Unique Rivas MD [address] [place] [address] PCP - General Pediatrics 07/22/13 Marble Worker Relationship Specialty Start Date End Date Unique Rivas MD [address] [place] [address] PCP - General Pediatrics 07/22/13 Marble Worker Relationship Specialty Start Date End Date Unique Rivas MD [address] [place] [address] PCP - General Pediatrics 07/22/13 Team Status: [...] Primary Care Provider, Refer ring Provider Active Negrita Vital RECYCLING SORTER, RECYCLING SORTER-C Attending Provider Active Team Status: Inactive Member [...] CNM Attending Provider, Referring Pro vider Active Marble Worker Relationship Specialty Start Date End Date Unique Rivas MD [address] [place] [address] PCP - General Pediatrics 07/22/13 Marble Worker Relationship Specialty Start Date End Date Unique Rivas MD [address] [place] [address] PCP - General Pediatrics 07/22/13 Marble Worker Relationship Specialty Start Date End Date Unique Rivas MD [address] [place] [address] PCP - General Pediatrics 07/22/13 Marble Worker Relationship Specialty Start Date End Date Marisa William APRN.WELLNESS INSTRUCTOR [address] [place] [address] PCP - General Family Medicine 08/30/23 Marble Worker Relationship Specialty Start Date End Date Marisa William APRN.WELLNESS INSTRUCTOR [address] [place] [address] PCP - General Family Medicine 08/30/23 Marble Worker Relationship Specialty Start Date End Date Marisa William APRN.WELLNESS INSTRUCTOR [address] [place] [address] PCP - General Family Medicine 08/30/23 Marble Worker Relationship Specialty Start Date End Date Marisa William AIRPLANE PILOT.WELLNESS INSTRUCTOR [address] [place] [address] PCP - General Family Medicine 08/30/23 Marble Worker Relationship Specialty Start Date End Date Marisa William, AIRPLANE PILOT.WELLNESS INSTRUCTOR [address] [place] [address] PCP - General Family Medicine 08/30/23 Marble Worker Relationship Specialty Start Date End Date Marisa William, AIRPLANE PILOT.WELLNESS INSTRUCTOR [address] [place] [address] PCP - General Family Medicine 08/30/23 Marble Worker Relationship Specialty Start Date End Date Marisa William, AIRPLANE PILOT.WELLNESS INSTRUCTOR [address] [place] [address] PCP - General Family Medicine 08/30/23 Marble Worker Relationship Specialty Start Date End Date Marisa William, AIRPLANE PILOT.WELLNESS INSTRUCTOR [address] [place] [address] PCP - General Family Medicine 08/30/23 Marble Worker Relationship Specialty Start Date End Date Marisa William, AIRPLANE PILOT.WELLNESS INSTRUCTOR [address] [place] [address] PCP - General Family Medicine 08/30/23 Team [...] Inactive Member Role Status Dates Dr. Unique iRvas MD Primary Care Provider Active Start: October 15, 2024 End: October 15, 2024 Dr. Unique Rivas MD Referring Provider Active Start: October 15, 2024 End: October 15, 2024 Negrita Vital NP, RECYCLING SORTER-C Attending Provider Active Start: October 15, 2024 End: October 15, 2024 Team Status: Active Member Role/Relationship Status Dates Marisa William NP-C Primary Care Provider Acti ve Team Status: Inactive Member Role/Relationship Status Dates Dr. Unique Rivas MD Primary Care Provider Active Start: August 27, 2024 End: August 27, 2024 Dr. Unique Rivas MD Referring Provider Active Start: August 27, 2024 End: August 27, 2024 Dr. Nereida Garcia MD Attending Provider Active Start: August 27, 2024 End: August 27, 2024 Team Status: Inactive Member Role/Relationship Status Dates Dr. Unique Rivas MD Primary Care Provider Active Start: September 16, 2024 End: September 16, 2024 Dr. Unique Rivas MD Referring Provider Active Start: September 16, 2024 End: September 16, 2024 Dr. Sarah Ravi DO Attending Provider Activ e Start: September 16, 2024 End: September 16, 2024 Team Status: Inactive Member Role/Relationship Status Dates Dr. Unique Rivas MD Primary Care Provider Active Start: September 16, 2024 End: September 16, 2024 Dr. Nereida Garcia MD Attending Provider Active Start: September 16, 2024 End: September 16, 2024 Dr. Nereida Garcia MD Referring Provider Active Start: September 16, 2024 End: September 16, 2024 Team Status: Inactive Member Role/Relationship Status Dates Dr. Unique Rivas MD Primary Care Provider Active Start: October 02, 2024 End: October 02, 2024 Dr. Nereida Garcia MD Attending Provider Active Start: October 02, 2024 End: October 02, 2024 Dr. Nereida Garcia MD Referring Provider Active Start: October 02, 2024 End: October 02, 2024 Team Status: Inactive Member Role/Relationship Status Dates Dr. Unique Rivas MD Primary Care Provider Active Start: October 15, 2024 End: October 15, 2024 Dr. Unique Rivas MD Referring Provider Active Start: October 15, 2024 End: October 15, 2024 Negrita Vital NP RECYCLING SORTER-C Attending Provider Active Start: October 15, 2024 End: October 15, 2024 Team Status: Inactive Member Role/Relationship Status Dates DAWNA PaniaguaC Primary Care Provider Acti ve Start: November 02, 2024 End: November 02, 2024 Dr. Mike Dill DO Emergency Provider Active Start: November 02, 2024 End: November 02, 2024 Team Status: Inactive Member Role/Relationship Status Dates Marisa William NP-C Primary Care Provider Acti ve Start: November 02, 2024 End: November 02, 2024 Dr. Mike Dill DO Attending Provider Active Start: November 02, 2024 End: November 02, 2024 Dr. Mike Dill DO Emergency Provider Active Start: November 02, 2024 End: November 02, 2024 Team Status: Inactive Member Role/Relationship Status Dates Dr. Unique Rivas MD Referring Provider Active Start: November 14, 2024 End: November 14, 2024 Glendy Arvizu CNM Attending Provider Active S tart: November 14, 2024 End: November 14, 2024 Marisa William RECYCLING SORTER-C Primary Care Provider Acti ve Start: November 14, 2024 End: November 14, 2024 Team Status: Inactive Member Role/Relationship Status Dates Marisa William RECYCLING SORTER-C Primary Care Provider Acti ve Start: November 14, 2024 End: November 14, 2024 Glendy Arvizu CNM Attending Provider Active S tart: November 14, 2024 End: November 14, 2024 Glendy Arvizu CNM Referring Provider Active S tart: November 14, 2024 End: November 14, 2024 Team Status: Inactive Member Role/Relationship Status Dates Dr. Unique Rivas MD Referring Provider Active Start: December 12, 2024 End: December 12, 2024 Dr. Sarah Ravi DO Attending Provider Activ e Start: December 12, 2024 End: December 12, 2024 Marisa William NP-C Primary Care Provider Acti ve Start: December 12, 2024 End: December 12, 2024 Team Status: Inactive Member Role/Relationship Status Dates Dr. Unique Rivas MD Primary Care Provider Active Start: September 16, 2024 End: September 16, 2024 Dr. Unique Rivas MD Referring Provider Active Start: September 16, 2024 End: September 16, 2024 Dr. Sarah Ravi DO Attending Provider Activ e Start: September 16, 2024 End: September 16, 2024 Team Status: Inactive Member Role/Relationship Status Dates Dr. Unique Rivas MD Primary Care Provider Active Start: September 16, 2024 End: September 16, 2024 Dr. Nereida Garcia MD Attending Provider Active Start: September 16, 2024 End: September 16, 2024 Dr. Nereida Garcia MD Referring Provider Active Start: September 16, 2024 End: September 16, 2024 Team Status: Inactive Member Role/Relationship Status Dates Dr. Unique Rivas MD Primary Care Provider Active Start: October 02, 2024 End: October 02, 2024 Dr. Nereida Garcia MD Attending Provider Active Start: October 02, 2024 End: October 02, 2024 Dr. Nereida Garcia MD Referring Provider Active Start: October 02, 2024 End: October 02, 2024 Team Status: Inactive Member Role/Relationship Status Dates Dr. Unique Rivas MD Primary Care Provider Active Start: October 15, 2024 End: October 15, 2024 Dr. Unique Rivas MD Referring Provider Active Start: October 15, 2024 End: October 15, 2024 Negrita Vital NP, RECYCLING SORTER-C Attending Provider Active Start: October 15, 2024 End: October 15, 2024 Team Status: Inactive Member Role/Relationship Status Dates Marisa William NP-C Primary Care Provider Acti ve Start: November 02, 2024 End: November 02, 2024 Dr. Mike Dill DO Attending Provider Active Start: November 02, 2024 End: November 02, 2024 Dr. Mike Dill DO Emergency Provider Active Start: November 02, 2024 End: November 02, 2024 Team Status: Inactive Member Role/Relationship Status Dates Dr. Unique Rivas MD Referring Provider Active Start: November 14, 2024 End: November 14, 2024 Glendy Arvizu CNM Attending Provider Active S tart: November 14, 2024 End: November 14, 2024 Marisa William NP-C Primary Care Provider Acti ve Start: November 14, 2024 End: November 14, 2024 Team Status: Inactive Member Role/Relationship Status Dates Marisa William NP-C Primary Care Provider Acti ve Start: November 14, 2024 End: November 14, 2024 Glendy Arvizu CNM Attending Provider Active S tart: November 14, 2024 End: November 14, 2024 Glendy Arvizu CNM Referring Provider Active S tart: November 14, 2024 End: November 14, 2024 Team Status: Inactive Member Role/Relationship Status Dates Dr. Unique Rivas MD Referring Provider Active Start: December 12, 2024 End: December 12, 2024 Dr. Sarah Ravi DO Attending Provider Activ e Start: December 12, 2024 End: December 12, 2024 Marisa William NP-C Primary Care Provider Acti ve Start: December 12, 2024 End: December 12, 2024 Team Status: Inactive Member Role/Relationship Status Dates Dr. Unique Rivas MD Referring Provider Active Start: January 09, 2025 End: January 09, 2025 Dr. Nereida Garcia MD Attending Provider Active Start: January 09, 2025 End: January 09, 2025 Marisa William NP-C Primary Care Provider Acti ve Start: January 09, 2025 End: January 09, 2025 Goals (unrecognized section and content) Goals may [...] section and content) DATE CREATED AUTHOR 07/31/2024 [facility] DATE CREATED AUTHOR AUTHOR'S ORGANIZ ATION 12/14/2024 [facility] DATE CREATED AUTHOR AUTHOR'S ORGANIZ ATION 12/16/2024 [facility] DATE CREATED AUTHOR AUTHOR'S ORGANIZ ATION 12/17/2024 [facility] DATE CREATED AUTHOR AUTHOR'S ORGANIZ ATION 12/21/2024 [facility] FOR RECORDS PERTAINING TO PATIENTS WHO ARE [...] BE BASED ON THE PRIMARY CLINICAL RECORDS. [employer] provides no warranty or guarantee of the accuracy or completeness of information in this document.
== END | disposition home or self-care (01) ==
LOC: LABSPEC 11:16
PROVIDERS: PCP Nurse Practitioner Family; Visit Provider Obstetrics & Gynecology
DX: O99.891 Other specified diseases and conditions complicating pregnancy (principal); O26.892 Other specified pregnancy related conditions, second trimester; N89.8 Other specified noninflammatory disorders of vagina; Z3A.00 Weeks of gestation of pregnancy not specified
CPT/HCPCS: 84112

== ENCOUNTER → 2025-01-29 | Outpatient (CLI) | payer MEDICAID, SELFPAY ==
[2025-01-29 12:26] LABS: Hematocrit 29.9 % (37-47); Hemoglobin 9.9 g/dL (12.0-15.0); Immature Granulocytes Count 0.080 X10^3/uL (0.0-0.0); Mean Corp Hgb Conc 33.1 g/dL (32-36); Mean Corpuscular Volume 84.7 fL (81-99); Mean Platelet Vol. 11.4 fl (6.2-12.0); NRBC Flagged by Analyzer 0 % (0-5); Platelet Count 360 K/mm3 (150-450); RBC Distribution Width CV 14.0 % (11.6-14.6); RBC Distribution Width SD 42.8 fl (35.1-43.9); Red Blood Count 3.53 M/mm3 (4.2-5.4); White Blood Count 9.5 K/mm3 (4.4-11.0)
[2025-01-29 13:05] LABS: HIV Nonreactive (Nonreactive); Syphilis Antibodies Nonreactive (Nonreactive)
[2025-01-29 13:17] LABS: Glucose Challenge Gest 1H 50g 95 mg/dL (70-140)
== END | disposition home or self-care (01) ==
PROVIDERS: Obstetrics & Gynecology; PCP Nurse Practitioner Family; Referring Provider Advanced Practice Midwife; Visit Provider Advanced Practice Midwife
DX: O09.92 Supervision of high risk pregnancy, unspecified, second trimester (principal); Z13.1 Encounter for screening for diabetes mellitus; Z3A.00 Weeks of gestation of pregnancy not specified
CPT/HCPCS: 36415; 82950; 85025; 86703; 86780

== ENCOUNTER → 2025-02-28 | Outpatient (CLI) | payer MEDICAID, SELFPAY ==
--- OUTSIDE RECORDS SUMMARY | 2025-02-28 16:48 | XMS RPT_ITS | CCD ---
Author Organization [facility] Care Team Providers Care Warp Bleaching Vat Tender Name Role Phone Unique Rivas MD Primary Care Provider Dr. Unique Rivas Primary Care Provider Dr. nUique Rivas Referring Provider Zahraa [employer], [employer]-C Negrita Attending Provider [phone] NURYS Arvizu Attending Provider [phone] Unique Rivas MD Primary Care Provider Stewart DOWEL PIN MAN.CITY ALDERMANMarisa Primary Care Provider Stewart DOWEL PIN MAN.CITY ALDERMANMarisa Primary Care Prov ider MARISA WILLIAM Primary Care Unavailabl e MARISA WILLIAM Attending Unavailabl e STEWART, MARISA ORTIZ Primary [facility] Unavailabl e WILLIAM, MARISA ORTIZ Primary [facility] Unavailabl e WILLIAM, MARISA ORTIZ Primary [facility] Unavailabl e WILLIAM, MARISA ORTIZ Primary [facility] Unavailabl e STEWART, MARISA ORTIZ Attending Unavailabl e STEWART, MARISA ORTIZ Primary [facility] Unavailabl e WILLIAM, MARISA ORTIZ Primary [facility] Unavailabl e WILLIAM, MARISA ORTIZ Primary [facility] Unavailabl e Dr. Unique Rivas MD Primary Care Provider Dr. Unique Rivas MD Referring Provider [phone] Dr. Nereida Chou MD Attending Provider Dr. Sarah Ravi DO Attending Provider Dr. Nereida Chou MD Referring Provider Zahraa JOHNSON-CNegrita Attending Provider [phone] Stewart [employer], Marisa Ortiz Primary Care Provider Dr. Mike Dill DO Emergency Provider Fuentes CERVANTES, Dr. Mckeon Attending Provider Glendy Arvizu CNM Attending Provider Glendy Arvizu CNM Referring Provider Unavailable Primary Care Provider Unavailabl e NO, PHYSICIAN Primary Care Unavailable AUTUMN DELEON Attending Unavailable Evelyn COX, Dr. Calhoun Primary Care Provider Evelyn COX, Dr. Calhoun Referring Provider Radha COX, Dr. Padron Attending Provider Evelyn COX, Dr. Calhoun Primary Care Physician Evelyn COX, Dr. Calhoun Referring Provider Zahraa [employer]-CNegrita Attending Physician [phone] Stewart [employer], Marisa Ortiz Primary Care Physicia n Fuentes CERVANTES, Dr. Mckeon Attending Physician Dr. Mike Dill DO Emergency Department Physi kyra Glendy Arvizu CNM Attending Physician [phone] Ricardo Ramos DO, Dr. Smith Attending Physician Radha COX, Dr. Padron Attending Physician Stewart [employer], Marisa Ortiz Referring Provider [phone] NEGRITA VITAL Referring Unavailable SEIDOWSKI, UNIQUE A Primary Care Unavailable SARAH LACEY Attending Unavailable JAMES, UNIQUE A Primary Care Unavailable SARAH LACEY Attending Unavailable NEREIDA CHOU Referring Unavailabl e NEGRITA VITAL Attending Unavailable ZAHRAANEGRITA CAMPOS S Referring Unavailable SEIDOWSKI, UNIQUE A Primary Care Unavailable MARISA WILLIAM T Primary Care Unavailable LETICIA MOON Attending Unavailable NEREIDA CHOU Referring Unavailabl e Raul Arizmendi Attending Unavailable Seifried, Unique Primary Care Unavailable Raul Arizmendi Referring Unavailable Nereida Chou Referring Unavailable Nereida Chou Attending Unavailable Seifried, Unique Primary Care Unavailable Sarah Ravi Attending Unavailabl e William, Marisa Ortiz Referring Unavailabl e William, Marisa [place] [facility] Unavailabl e William, Marisa Angel Referring Unavailabl e William, Marisa [place] Primary Care Unavailabl e Glendy Arvizu Attending Unavailable Negrita Vital Attending Unavailable Seifried, Unique Primary Care Unavailable Seifried, Unique Referring Unavailable Seifried, Unique Referring Unavailable William, Marisa [place] Primary Care Unavailabl e Glendy Arvizu Attending Unavailable Seifried, Unique Primary Care Unavailable Seifried, Unique Referring Unavailable Raul Arizmendi Attending Unavailable Sarah Ravi Attending Unavailabl e Seifried, Unique Primary Care Unavailable Seifried, Unique Referring Unavailable Nereida Chou Attending Unavailable Seifried, Unique Primary Care Unavailable Seifried, Unique Referring Unavailable Sarah Ravi Attending Unavailabl e Seifried, Unique Referring Unavailable William, Marisa [place] Primary Care Unavailabl e Nereida Chou Attending Unavailable Seifried, Unique Referring Unavailable William, Marisa [place] Primary Care Unavailabl e Negrita Vital Attending Unavailable William, Marisa Angel Referring Unavailabl e William, Marisa [place] Primary Care Unavailabl e Glendy Arvizu Referring Unavailable Glendy Arvizu Attending Unavailable William, Marisa [facility] Care Unavailabl e Nereida Chou Attending Unavailable William, Marisa [place] Primary Care Unavailabl e William, Marisa [place] Primary Care Unavailabl e Glendy Arvizu Referring Unavailable Glendy Arvizu Attending Unavailable Nereida Chou Referring Unavailable Nereida Chou Attending Unavailable Seifried, Unique Primary Care Unavailable Mike Dill Attending Unavailable William, Mraisa [place] Primary Care Unavailabl e DEEDEEITGATO Attending Unavailable GATO TRUJILLO Referring Unavailable GATO TRUJILLO Admitting Unavailable CHER SCHULTZ Admitting Unavailable CHER SCHULTZ Attending Unavailable CHER SCHULTZ Referring Unavailable Medications Current Medications Medication Drug Class(es) Dates [...] above: Take 2 tablets by mo [facility] every 6 hours as needed for [...] above: Take 1 tablet by georgina th two times a day for 7 days. amoxicillin 875 mg / clavulanate 125 mg oral tablet (1 source) Penicillin-class Antibacterial Start: 07-06-2024 End: 07-11-2024 take 1 tablet by mouth twice daily amoxicillin-clavulan ate potassium (AUGMENTIN) 875-125 mg per tablet Take 1 tablet by mouth two times a day for 5 days. 10 tablet 07/06/2024 07/11/2024 Active calcium carbonate 500 mg chewable tablet (1 source) calcium carbonat e 500 MG Chew Tab tablet Chew 1 tablet daily. Active cetirizine hydrochloride 10 mg oral tablet (1 source) Histamine-1 Receptor Antagonist Start: 10-25-2022 End: 11-01-2022 take 1 tablet by mouth once daily cetirizine (ZYRTEC) 10 mg tablet Take 1 tablet by mouth once daily for 7 days. 7 tablet 0 10/25/2022 11/01/2022 Active Comment on above: Take 1 tablet by georgina once daily for 7 days. docosahexaenoic acid 200 mg oral capsule (12 sources) Start: 08-27-2024 Docosahexaenoic Acid ( Dha) 200 mg capsule Active mg PO August 27, 2024 12:00am Complies with drug therapy famotidine 20 mg oral tablet (3 sources) Histamine-2 Receptor Antagonist Start: 07-06-2024 take 1 tablet by mouth twice daily famotidine (PEPCID) 20 mg tablet Take 1 tablet by mouth two times a day. 20 tablet 07/06/2024 Active ferrous sulfate 325 mg oral tablet (1 source) take 1 tablet by mouth once daily ferrous sulfate 325 (65 Fe) MG tablet Take 1 tablet by mouth daily. Active ibuprofen 400 mg oral tablet (2 [...] three times a day for 10 days. [place] (Nk) (1 source) Start: [place] (Nk) Active February 13, 2023 12:00am ondansetron 4 mg oral tablet (20 sources) Serotonin-3 Receptor Antagonist Start: take 1 tablet by mouth every four hours Ondansetron Hcl 4 mg tablet Active 4 mg PO Q4H 60 3 October 10, 2024 12:00am Complies with drug therapy Start: 04-06-2023 End: 04-20-2023 take 1 tablet [...] as needed for nausea and vomiting 10 0 January 30, 2023 12:00am February 13, 2023 [...] on above: Take 1 tablet by georgina four times daily for 5 days. predniSONE 20 mg oral tablet (2 sources) Start: 07-02-2024 End: 07-07-2024 take 1 tablet by mouth twice daily predniSONE (DELTASONE) 20 mg tablet Indications: Acute pharyngitis, unspecified etiology Take 1 tablet by mouth two times a day for 5 days. 10 tablet 07/02/2024 07/07/2024 Active MV-Min-Fe Fum-FA-DHA ( 1 PO) (1 source) MV-Min- Fe Fum-FA-DHA ( 1 PO) Take by mouth. Active Completed/Discontinued Medications Medication Drug Class(es) Dates Sig (Normalized) Sig (Original) azithromycin 500 mg oral tablet (20 sources) Macrolide Antimicrobial Start: 09-19-2024 End: 11-14-2024 take 2 tablets by mouth once Azithromycin 500 mg tablet Discontinued 1000 mg PO ONCE 2 0 October 10, 2024 10:09am October 15, 2024 8:45am etonogestrel 68 mg drug implant (20 sources) Progestin Start: 09-14-2020 End: 08-27-2024 Etonogestrel (Nexplanon) 68 mg implant Discontinued 1 NMA subdermal ONCE August 29, 2023 12:00am August 27, 2024 10:03am as a single dose End: 01-19-2023 etonogestrel [...] on above: Take 1 capsule by mo uth once daily for 30 days. Take 1 capsule by mo uth every morning for 30 days. Do not start before October 20, 2021. Take 1 capsule by mo uth every morning for 30 days. Do not start before November 19, 2021. Take 1 capsule by mo uth once daily for 30 days. Do not start before January 08, 2022. naproxen 250 mg oral tablet (14 sources) Nonsteroidal Anti-inflammatory Drug Start: 09-10-19 End: 09-15-19 take 250-500 mg by mouth every eight hours as needed for pain Naproxen 250 MG tablet Discontinued 250 - 500 mg PO EVERY 8 HOURS NEEDED as needed for MILD PAIN 30 September 09, 2020 12:00am September 14, 2020 2:15pm oxyCODONE hydrochloride 5 mg oral capsule (14 sources) Opioid Agonist Start: 09-10-19 End: 09-11-19 [...] 10-05-2012 Chronic Comment on above: No meds No meds; stable Attention-deficit, conduct, and disruptive behavior disorders (20 sources) Attention deficit hyperactivity disorder; Translations: [Attention-deficit hyperactivity disorder, unspecified type] Onset: 02-05-2009 02-05-2009 Chronic Comment on above: No meds currently; [employer] in [employer] Attention-deficit, conduct, and disruptive behavior disorders (1 source) Attention deficit hyperactivity disorder, predominantly inattentive type; Translations: [Attention-deficit hyperactivity disorder, predominantly inattentive type] Chronic Attention-deficit, conduct, and disruptive behavior disorders (1 source) Attention-deficit hyperactivity disorder, unspecified type; Translations: [Attention-deficit hyperactivity disorder, unspecified type] Onset: 02-19-2025 Chronic Bacterial infection; unspecified site (1 source) Chlamydial infection, unspecified; Translations: [Chlamydial infection, unspecified] Onset: 02-12-2025 Episodic Complications of surgical procedures or medical care (14 sources) Drug therapy finding; Translations: [Unspecified adverse effect of drug or medicament, initial encounter] 01-30-2023 Episodic Contraceptive and procreative management (20 sources) Patient encounter status; Translations: [Encounter for contraceptive management, unspecified] 09-14-2020 Episodic Comment on above: wants nexplanon. PA sent Deficiency and other anemia (14 sources) Anemia; Translations: [Anemia, unspecified] 09-09-2020 Episodic Comment on above: tranfuse 2 u PRBC wi th 2 additional unit on hold Disorders of teeth and jaw (1 source) Toothache; Translations: [Other specified disorders of teeth and supporting structures] Episodic Ectopic (14 sources) Tubal ; Translations: [Unspecified tubal without intrauterine ] 09-09-2020 Episodic Comment on above: right ovarian Genitourinary symptoms and ill-defined conditions (1 source) Dysuria; Translations: [Dysuria] Onset: 01-24-2025 Episodic Headache; including migraine (2 sources) Headache; Translations: [Headache, unspecified headache type] Episodic Hemorrhage during ; abruptio placenta; placenta previa (9 sources) Threatened miscarriage; Translations: [Threatened ] 11-02-2024 Episodic Immunizations and screening for infectious disease (10 sources) Suspected disease caused by 2019-nCoV; Translations: [Suspected 2019 novel coronavirus infection] Onset: 02-10-2025 Episodic Nausea and vomiting (16 sources) Nausea, vomiting and diarrhea; Translations: [Nausea with vomiting, unspecified] 01-24-2023 Episodic Nonspecific chest pain (2 sources) Other chest pain; Translations: [Other chest pain] Onset: 12-19-2024 Episodic Other bone disease and musculoskeletal deformities (1 source) Costal chondritis; Translations: [Chondrocostal junction syndrome [Tietze]] 01-19-2023 Episodic Other circulatory disease (14 sources) Bleeding; Translations: [Hemorrhage, not elsewhere classified] 09-08-2020 Episodic Other complications of (5 sources) Anemia of ; Translations: [Anemia complicating , unspecified trimester] 01-29-2025 Chronic Comment on above: OTC iron, rpt CBC in 4wks Other complications of (1 source) Anemia complicating , unspecified trimester; Translations: [Anemia complicating , unspecified trimester] Onset: 02-10-2025 Chronic Other complications of (20 sources) High risk ; Translations: [Supervision of high risk , unspecified, unspecified trimester] 08-27-2024 Episodic Comment on above: , KELTON 04/23/25, BF: Edward [id number], KELTON 5, BF: Edward Other complications of (20 sources) Chlamydia trachomatis infection in ; Translations: [Other maternal infectious and parasitic diseases complicating , unspecified trimester] 10-15-2024 Episodic Comment on above: + @ NOB. + @ NOB. Treated and vomited med. [place] Rx sent and zofram prior. + @ NOB. Treated and vomited med. [place] Rx sent and zofram prior. Rpt test negative Other complications of (1 source) Other specified related conditions, second trimester; Translations: [Other specified related conditions, second trimester] Onset: 01-25-2025 Episodic Other complications of (1 source) Other maternal infectious and parasitic diseases complicating , first trimester; Translations: [Other maternal infectious and parasitic diseases complicating , first trimester] Onset: 02-12-2025 Episodic Other complications of (1 source) Supervision of high risk , unspecified, second trimester; Translations: [Supervision of high risk , unspecified, second trimester] Onset: 02-12-2025 Episodic Other complications of (1 source) Supervision of high risk , unspecified, unspecified trimester; Translations: [Supervision of high risk , unspecified, unspecified trimester] Onset: 02-19-2025 Episodic Other connective tissue disease (2 sources) Pain in right lower limb; Translations: [Pain in right leg] 11-03-2023 Episodic Other connective tissue disease (1 source) Pain in right leg; Translations: [Right leg pain] Onset: 05-10-2024 Episodic Other female genital disorders (14 sources) Abnormal uterine bleeding; Translations: [Abnormal uterine and vaginal bleeding, unspecified] 01-20-2022 Chronic Other female genital disorders (1 source) Abnormal uterine and vaginal bleeding, unspecified; Translations: [Abnormal uterine and vaginal bleeding, unspecified] Onset: 11-07-2024 Chronic Other gastrointestinal disorders (14 sources) Hemorrhage into peritoneal cavity; Translations: [Hemoperitoneum] 09-14-2020 Episodic Comment on above: CT ordered- done and surgical postop findings noted Other non-traumatic joint disorders (1 source) Hip pain; Translations: [Pain in right hip] 04-20-2023 Episodic Other and delivery including normal (20 sources) ; Translations: [Encounter for supervision of normal , unspecified, unspecified trimester] Onset: 02-19-2025 08-27-2024 Episodic Comment on above: Discussed genetic/ca rrier testing - undecided NIPT low risk NIPT low risk, growt h nl. MIKHAIL slightly smaller. US in 4 weeks. Other upper respiratory infections (1 source) Chronic [...] both tubes. Residual codes; unclassified (1 source) 29 weeks gestation of ; Translations: [29 weeks gestation of ] Onset: 02-10-2025 Episodic Residual codes; unclassified (1 source) 25 weeks gestation of ; Translations: [25 weeks gestation of ] Onset: 01-09-2025 Episodic Residual codes; unclassified (1 source) 21 weeks gestation of ; Translations: [21 weeks gestation of ] Onset: 02-12-2025 Episodic Residual codes; unclassified (1 source) 17 weeks gestation of ; Translations: [17 weeks gestation of ] Onset: 01-24-2025 Episodic Residual codes; unclassified (1 source) Personal history of other complications of , childbirth and the puerperium; Translations: [Personal history of other complications of , childbirth and the puerperium] Onset: 02-19-2025 Episodic Substance-related disorders (20 sources) Smoker; Translations: [Nicotine dependence, unspecified, uncomplicated] Onset: 02-19-2025 08-27-2024 Chronic Comment on above: Last smoke: 08/25, Ex posed to second hand Unclassified (2 sources) No additional problems on file Unclassified (2 sources) Decreased Movement; Translations: [Decreased Movement] Onset: 02-20-2025 Unclassified (2 sources) Other; Translations: [Other] Onset: [...] Test Name Value Interpretation Reference Range Facility Medical Investigator Office Visit Reporton 02-10-2025 Medical Investigator Office Visit Report [address], [address] [place] [address] OFFICE VISIT Date of Service: 02/10/25 MR#: [id number] Acct: [id number] Name: NAN MEYERS Rep #: [id number] : 2000 Provider: NURYS Swenson ams Age/Sex: 25/F [place] [facility] [place]: Signed with Addenda ADDENDUM by Meagan Parish on 02/10/25 at 1436 Office Procedure Documentation entered by Meagan Parish 02/10/25 14:36: Immunizations Adacel(Tdap Adolesn/Adult)(PF) 2 Lf-(2.5-5-3-5)-5 Lf/0.5 mL IM syringe Performing Provider: Glendy Arvizu CNM Performing Location: [facility] Administered by: Meagan Parish on 02/10/25 14:35 Dose Route Admin Location Dispensed Lot Number Expiration Date Package NDC NDC Welder Gas Automatic 0.5 mL IM Left Deltoid 0.5 mL [id number] 01/04/27 17991-240-30 [id number] [employer] VIS Given Date VIS Provided VIS Publication Date 02/10/25 Single Vaccine 24 Eligibility Eligibility Date Funding Source Not Applicable Date cc: * Signed Intake Vital Signs 01/09/25 10:32 01/27/25 09:50 02/10/25 14:17 Height 5 ft 5 ft 5 ft Weight: 170 lb BMI 33.2 BP 128/77 H Intake Visit Reasons: 30 WK OB Chief Complaint: 30wk OB Template Fitter Required: No Is patient in pain?: No Allergies No Known Allergies Allergy (Verified 02/10/25 14:16) Medications ???Medication ???Instructions ???Recorded ???Confirmed ???Type docosahexaenoic acid 200 mg mg PO 08/27/24 02/10/25 History capsule ( DHA) ondansetron HCl 4 mg tablet 4 mg PO Q4H #60 tabs 10/10/2410/30 Rx Last Menstrual Period: 07/17/24 : No PFSH PFSH Medical History ADHD Anxiety , ectopic, tubal Surgical History History of ectopic Family History Mother Thyroid disorder Adopted Hypertension Hyperlipidemia Grandmother Hypertension Grandfather Hypertension Father Asthma Social History adopted: No household members: significant other and other details: Brother his baby current occupational status: employed current occupation: [employer] current occupational exposures/hazards: No pets and animals: [...] physical activity do you participate in: none christopher/sikh: None seatbelt use: always do you feel safe at home: Yes additional social history: BF: Fausto - [employer] History 2 Elective abortions Hx Para 0 Spontaneous abortions 0 Hx # Term Pregnancies Ectopic pregnancies 1 Hx # Pregnancies Multiple births # of living children 0 Past Pregnancies Del. Date Name GA/Weeks Outcome Route Bth Weight Gen Labor Lgth Anesthesia Del Locatn Provider FOB 09/08/20 4 ectopic SM Delivery Date: 09/08/20 Last Updated by: Farzaneh Deal RN Right ovarian tubal HPI 30 WK OB Details: NAN MEYERS is a 25 year old who presents for routine OB visit. OB Visit [facility] Calculator Estimated Delivery Date Method Current WG Current Estimate 04/23/25 LMP (Certain) 29w 5d Other Estimates 04/23/25 Ultrasound #1 29w 5d Expected Delivery Route/Plan Labor Preferences- CB/BF classes: encouraged labor support person: Fausto labor intervention preferences: [] pain management options preferred: epidural cut cord/dad catch: cord : yes PP control planned: discussed discussed possible routes of delivery and associated risks: [] special requests: [] Specific Issue/Plans Covid status: [] Flu vaccine: [] Tdap vaccine: [] Rhogam: NA LARC form signed: yes Problem list reviewed and updated with the most current plan of care details and appropriate orders placed. Relevant counseling for the gestational age provided. Continue routine care and follow up unless otherwise noted in visit notes/problem list details Initial Weight: Not Recorded Date -???-???-???-???-??? -???-???-???-???-??? -???-???- EGA Weight BP Urine Prot -???-???-???-???-??? -???-???-???-???-??? -???-???- Glucose FHR FuHt P (more content not included)... Normal [facility] Absolute lymphocyte countOrd ered By: Nereida Chou on 01-29-2025 Lymphocytes Auto (Unsp spec) [#/Vol] 1.67 10*3/uL 0.83-4.51 [facility] Absolute neutrophil countOrd ered By: Nereida Chou on 01-29-2025 Neutrophils (Bld) [#/Vol] 6.7 10*3/uL 2.0-7.7 [facility] Automated lymphocyte count a s percentage of total leukocytesOrdered By: Nereida Chou on 01-29-2025 Lymphocytes/100 WBC Auto (Unsp spec) 17.7 % Low 19-41 [facility] Basophil percentageOrdered B y: Nereida Chou on 01-29-2025 Basophils/100 WBC (Bld) 0.3 % 0-1 [facility] CBC W/Diff, Gracielaon 01-07 Absolute Lymph 1.67 X10 3/uL Normal 0.83-4.51 [facility] Comment on above: Performed By: #### L 501.0250, L509.8002, L100.0100, L3890.6006 ####[facility] [address] [place], [address] Absolute Neut 6.7 X10 3/uL Normal 2.0-7.7 [facility] Comment on above: Performed By: #### L 501.0250, L509.8002, L100.0100, L3890.6006 ####[facility] [address] [place], [address] Basophils/100 WBC (Bld) 0.3 % Normal 0-1 [facility] Comment on above: Performed By: #### L 501.0250, L509.8002, L100.0100, L3890.6006 ####[facility] [address] [place], [address] Eosinophils/100 WBC (Bld) 1.7 % Normal 0-5 [facility] Comment on above: Performed By: #### L 501.0250, L509.8002, L100.0100, L3890.6006 ####[facility] [address] [place], [address] Erythrocyte distribution width (RBC) [Ratio] 14.0 % Normal 11.6-14.6 [facility] Comment on above: Performed By: #### L 501.0250, L509.8002, L100.0100, L3890.6006 ####[facility] [address] [place], [address] Hematocrit (Bld) [Volume fraction] 29.9 % Low 37-47 [facility] Comment on above: Performed By: #### L 501.0250, L509.8002, L100.0100, L3890.6006 ####[facility] [address] [place], [address] Hemoglobin (Bld) [Mass/Vol] 9.9 g/dL Low 12.0-15.0 [facility] Comment on above: Performed By: #### L 501.0250, L509.8002, L100.0100, L3890.6006 ####[facility] [address] [place], [address] IG% 0.800 Normal 0.0-0.9 [facility] Comment on above: Result Comment: IG% - Immature Granulocytes (promyelocytes, myelocytes and metamyelocytes) > 1% indicates that a LEFT SHIFT is Present. Performed By: #### L 501.0250, L509.8002, L100.0100, L3890.6006 ####[facility] [address] [place], [address] Lymphocytes/100 WBC (Bld) 17.7 % Low 19-41 [facility] Comment on above: Performed By: #### L 501.0250, L509.8002, L100.0100, L3890.6006 ####[facility] [address] [place], [address] MCH (RBC) [Entitic mass] 28.0 pg Normal 27.0-32.0 [facility] Comment on above: Performed By: #### L 501.0250, L509.8002, L100.0100, L3890.6006 ####[facility] [address] [place], [address] MCHC (RBC) [Mass/Vol] 33.1 g/dL Normal 32-36 [facility] Comment on above: Performed By: #### L 501.0250, L509.8002, L100.0100, L3890.6006 ####[facility] [address] [place], [address] MCV (RBC) [Entitic vol] 84.7 fL Normal 81-99 [facility] Comment on above: Performed By: #### L 501.0250, L509.8002, L100.0100, L3890.6006 ####[facility] [address] [place], [address] Monocytes/100 WBC (Bld) 9.1 % Normal 0-10 [facility] Comment on above: Performed By: #### L 501.0250, L509.8002, L100.0100, L3890.6006 ####[facility] [address] [place], [address] Neutrophils/100 WBC (Bld) 70.4 % High 47-70 [facility] Comment on above: Performed By: #### L 501.0250, L509.8002, L100.0100, L3890.6006 ####[facility] [id number] [place], [address] Nucleated RBC (Bld) [#/Vol] 0 10*3/uL Normal 0-5 [facility] Comment on above: Performed By: #### L 501.0250, L509.8002, L100.0100, L3890.6006 ####[facility] [address] [place], [address] Platelet mean volume (Bld) [Entitic vol] 11.4 fL Normal 6.2-12.0 [facility] Comment on above: Performed By: #### L 501.0250, L509.8002, L100.0100, L3890.6006 ####[facility] [address] [place], [address] Platelets (Bld) [#/Vol] 360 10*3/uL Normal 150-450 [facility] Comment on above: Performed By: #### L 501.0250, L509.8002, L100.0100, L3890.6006 ####[facility] [address] [place], [address] RBC (Bld) [#/Vol] 3.53 10*6/uL Low 4.2-5.4 [facility] Comment on above: Performed By: #### L 501.0250, L509.8002, L100.0100, L3890.6006 ####[facility] [address] [place], [address] RDW SD 42.8 fl Normal 35.1-43.9 [facility] Comment on above: Performed By: #### L 501.0250, L509.8002, L100.0100, L3890.6006 ####[facility] [address] [place], [address] WBC (Bld) [#/Vol] 9.5 10*3/uL Normal 4.4-11.0 [facility] Comment on above: Performed By: #### L 501.0250, L509.8002, L100.0100, L3890.6006 ####[facility] [address] [place], [address] Eosinophil percentageOrdered By: Nereida Chou on 01-29-2025 Eosinophils/100 WBC (Bld) 1.7 % 0-5 [facility] Erythrocyte distribution wid th ratioOrdered By: Nereida Chou on 01-29-2025 Erythrocyte distribution width (RBC) [Ratio] 14.0 % 11.6-14.6 [facility] Erythrocyte distribution wid th standard deviationOrdered By: Nereida Chou on 01-29-2025 Erythrocyte distribution width (RBC) [Ratio] 42.8 fl 35.1-43.9 [facility] Glucose Challenge Gest 1H 50 ananda 01-29-2025 GLU GEST 50g 1H 95 mg/dL Normal 70-140 [facility] Comment on above: Result Comment: AMENDED REPORT 01/29/251316 GLU GEST 50g 1H previously reported as: 102 mg/dL Performed By: #### L 501.0250, L509.8002, L100.0100, L3890.6006 ####[facility] [address] [place], [place], [id number] Glucose measurement at 2 janay rs post-dose gestational glucose tolerance testOrdered By: Nereida Chou on 01-29-2025 Glucose [Mass/Vol] 95 mg/dL 70-140 [facility] Comment on above: Previous reported re sult: 102 mg/dLEdited by: KATALINA on 01/29/25:1317 AMENDED REPORT 01/29/251316 GLU GEST 50g 1H previously reported as: 102 mg/dL HIVon 01-29-2025 HIV Non-Reactive Normal Nonreactive [facility] Comment on above: Result Comment: Non- Reactive Reactive Repeatedly reactive samples must be confirmed according to CDC recommended confirmatory algorithms. The subresults for either HIVAG or AHIV can be used as an aid in the selection of the confirmation algorithm for reactive samples. Send out specimens with Reactive results to [facility] for confirmation. Order the HIV antibody detection and differentiation: lc#[id number] Performed By: #### L 501.0250, L509.8002, L100.0100, L3890.6006 ####[facility] [address] [place], [place], [address] Hematocrit Auto (Bld) [Volum e fraction]Ordered By: Nereida Chou on 01-29-2025 Hematocrit (Bld) [Volume fraction] 29.9 % Low 37-47 [facility] Hemoglobin measurementOrdere d By: Nereida Chou on 01-29-2025 Hemoglobin (Bld) [Mass/Vol] 9.9 g/dL Low 12.0-15.0 [facility] Immature granulocytes/100 WB C Auto (Bld)Ordered By: Nereida Chou on 01-29-2025 Immature granulocytes/100 WBC (Bld) 0.800 % 0.0-0.9 [facility] Comment on above: IG% - Immature Granu locytes (promyelocytes, myelocytes and metamyelocytes) > 1% indicates that a LEFT SHIFT is Present. MCV (mean corpuscular volume ) determinationOrdered By: Nereida Chou on 01-29-2025 MCV (RBC) [Entitic vol] 84.7 fL 81-99 [facility] Mean corpuscular hemoglobin (MCH) determinationOrdered By: Nereida Chou on 01-29-2025 MCH (RBC) [Entitic mass] 28.0 pg 27.0-32.0 [facility] Mean corpuscular hemoglobin concentration (MCHC) determinationOrdered By: Nereida Chou on 01-29-2025 MCHC (RBC) [Mass/Vol] 33.1 g/dL 32-36 [facility] Mean platelet volume determi nationOrdered By: Nereida Chou on 01-29-2025 Platelet mean volume (Bld) [Entitic vol] 11.4 fL 6.2-12.0 [facility] Monocyte percentageOrdered B y: Nereida Chou on 01-29-2025 Monocytes/100 WBC (Bld) 9.1 % 0-10 [facility] Neutrophil percentageOrdered By: Nereida Chou on 01-29-2025 Neutrophils/100 WBC (Bld) 70.4 % High 47-70 [facility] No Panel InformationOrdered By: Nereida Chou on 01-29-2025 HIV (1&2) Antibody Non-Reactive Nonreactive [facility] Comment on above: Non-ReactiveReactive Repeatedly reactive samples must be confirmed according to CDC recommended confirmatory algorithms. The subresults for either HIVAG or AHIV can be used as an aid in the selection of the confirmation algorithm for reactive samples.Send out specimens with Reactive results to [facility] for confirmation.Order the HIV antibody detection and differentiation: #[id number] Nucleated red blood cell per centageOrdered By: Nereida Chou on 01-29-2025 Nucleated RBC/100 WBC (Bld) [Ratio] 0 % 0-5 [facility] Platelet countOrdered By: Andrei Chou on 01-29-2025 Platelets (Bld) [#/Vol] 360 10*3/uL 150-450 [facility] RBC Auto (Bld) [#/Vol]Ordere d By: Nereida Radha on 01-29-2025 RBC (Bld) [#/Vol] 3.53 10*6/uL Low 4.2-5.4 [facility] Syphilis Antibodieson 2024 Syphilis Abs Non-Reactive Normal Nonreactive [facility] Comment on above: Performed By: #### L 501.0250, L509.8002, L100.0100, L3890.6006 ####[facility] [address] [place], [place], [id number] White blood cell (WBC) count Ordered By: Nereida Chou on 01-29-2025 WBC (Bld) [#/Vol] 9.5 10*3/uL 4.4-11.0 [facility] Laboratory - Chemistry and C hemistry - challengeOrdered By: Negrita Vital on 01-27-2025 Glucose Ql (U) Negative [facility] Laboratory - UrinalysisOrder ed By: Negrita Vital on 01-27-2025 Protein Ql (U) Negative [facility] Medical Investigator Office Visit Reporton 01-27-2025 Medical Investigator Office Visit Report [facility] [address], [address] [place] [address] OFFICE VISIT Date of Service: 01/27/25 MR#: [id number] Acct: [id number] Name: NAN MEYERS Rep #: [id number] : 2000 Provider: DEBORAH grey Age/Sex: 25/F [place] [facility] [place]: Signed Intake Vital Signs 12/12/24 13:21 12/12/24 13:48 01/09/25 10:32 01/27/25 09:50 Height 5 ft 5 ft 5 ft 5 ft Weight: 160 lb 9 oz 162 lb 3 oz BMI 31.4 31.6 BP 116/70 122/71 H Intake Visit Reasons: 28 WK OB/GLUCOSE Template Fitter Required: No Is patient in pain?: No Allergies No Known Allergies Allergy (Verified 01/27/25 09:49) Medications ???Medication ???Instructions ???Recorded ???Confirmed ???Type docosahexaenoic acid 200 mg mg PO 08/27/24 01/27/25 History capsule ( DHA) ondansetron HCl 4 mg tablet 4 mg PO Q4H #60 tabs 10/10/2401/07 Rx Last Menstrual Period: 07/17/24 Zika: Zika virus screening: Negative : No Have you fallen in the past year?: No PFSH PFSH Medical History ADHD Anxiety , ectopic, tubal Surgical History History of ectopic Family History Mother Thyroid disorder Adopted Hypertension Hyperlipidemia Grandmother Hypertension Grandfather Hypertension Father Asthma Social History adopted: No household members: significant other and other details: Brother his baby current occupational status: employed current occupation: [employer] current occupational exposures/hazards: No pets and animals: [...] physical activity do you participate in: none christopher/sikh: None seatbelt use: always do you feel safe at home: Yes additional social history: BF: Fausto - [employer] Assistant History 2 Elective abortions Hx Para 0 Spontaneous abortions 0 Hx # Term Pregnancies Ectopic pregnancies 1 Hx # Pregnancies Multiple births # of living children 0 Past Pregnancies Del. Date Name GA/Weeks Outcome Route Bth Weight Infant Gen Labor Lgth Anesthesia Del Locatn Provider FOB 09/08/20 4 ectopic SM Delivery Date: 09/08/20 Last Updated by: Farzaneh Deal RN Right ovarian tubal HPI 28 WK OB/GLUCOSE Details: NAN MEYERS is a 25 year old who presents for routine OB visit. OB Visit KELTON Calculator Estimated Delivery Date Method Current WG Current Estimate 04/23/25 LMP (Certain) 27w 5d Other Estimates 04/23/25 Ultrasound #1 27w 5d Expected Delivery Route/Plan Labor Preferences- CB/BF classes: encouraged labor support person: Fausto labor intervention preferences: [] pain management options preferred: epidural cut cord/dad catch: cord : yes PP control planned: discussed discussed possible routes of delivery and associated risks: [] special requests: [] Specific Issue/Plans Covid status: [] Flu vaccine: [] Tdap vaccine: [] Rhogam: NA LARC form signed: yes Problem list reviewed and updated with the [...] -???-???-???-???-??? -???-???- Negative 147 -???-???-???-???-??? -???-???-???-???-??? -???-???- MH-No VB. V omited (more content not included)... Normal [facility] (ROM) Rupture Of Membraneson 01-09-2025 ROM Negative Normal Negative [facility] Comment on above: Result Comment: Amni otic fluid not present indicates No Rupture of Membranes at time of specimen collection. Performed By: #### L 205.1000 #### [facility] [place], [address] Laboratory - Chemistry and C hemistry - challengeOrdered By: Nereida Chou on 01-09-2025 Glucose Ql (U) Negative [facility] - UrinalysisOrder ed By: Nereida Chou on 01-09-2025 Protein Ql (U) Negative [facility] Medical Investigator Office Visit Reporton 01-09-2025 Medical Investigator Office Visit Report [facility] [address], [address] [place] [address] OFFICE VISIT Date of Service: 01/09/25 MR#: [id number] Acct: [id number] Name: NAN MEYERS Rep #: [id number] : 2000 Provider: Dr. Nereida velasquez MD Age/Sex: 24/F [place] [facility] [place]: Signed Intake Vital Signs 10/15/24 08:32 12/12/24 13:48 01/09/25 10:32 Height 5 ft 5 ft 5 ft Weight: 160 lb 9 oz BMI 31.4 BP 116/70 Intake Visit Reasons: 25 wk ob Template Fitter Required: No Is patient in pain?: No Allergies No Known Allergies Allergy (Verified 01/09/25 10:37) Medications ???Medication ???Instructions ???Recorded ???Confirmed ???Type docosahexaenoic acid 200 mg mg PO 08/27/24 01/09/25 History capsule ( DHA) ondansetron HCl 4 mg tablet 4 mg PO Q4H #60 tabs 10/10/2408/30 Rx Last Menstrual Period: 07/17/24 Zika: Zika virus screening: Negative : No PFSH PFSH Medical History ADHD Anxiety , ectopic, tubal Surgical History History of ectopic Family History Mother Thyroid disorder Adopted Hypertension Hyperlipidemia Grandmother Hypertension Grandfather Hypertension Father Asthma Social History adopted: No household members: significant other and other details: Brother his baby current occupational status: employed current occupation: [employer] current occupational exposures/hazards: No pets and animals: [...] physical activity do you participate in: none christopher/sikh: None seatbelt use: always do you feel safe at home: Yes additional social history: BF: Fausto - [employer] Assistant History 2 Elective abortions Hx Para 0 [...] -???-???-???-???-??? -???-???- Negative 147 -???-???-???-???-??? -???-???-???-???-??? -???-???- MH-No VB. V omited up zithromax for chlamydia. Will retreat and instructed on use of zofran prior. Br US confirm FHT 11/14/24 -?? (more content not included)... Normal [facility] ED Prov Noteon 12-19-2024 ED Prov Note [facility] EM[facility]Y [facility] ATTENDING NOTE: NAME: Nan Wylie Luigi CSN: [id number] 24 y.o. PCP: No, Physician History: Chief [...] C) Oral 95 16 97 % 5' 1" 69.9 kg (154 lb) Physical Exam Vitals [...] All other components within normal limits Narrative: [facility] has implemented the eGFR [...] ED Disposit (more content not included)... Normal [facility] POC BASIC METABOLIC PANEL - O[place] 12-19-2024 Chloride [Moles/Vol] 104 mmol/L Normal 98-108 [facility] Comment on above: Order Comment: [facility] has implemented the eGFR calculation approach that does not have a coefficient for race that conforms to the NKF-ASN Task Force Recommendations. Performed By: #### P [id number] #### [facility] PO[facility] [address] [address] Osiel Nelson D.OLeonela [id number] CO2 [Moles/Vol] 23 mmol/L Normal 21-32 [facility] Comment on above: Order Comment: [facility] has implemented the eGFR calculation approach that does not have a coefficient for race that conforms to the NKF-ASN Task Force Recommendations. Performed By: #### P [id number] #### [facility] [address] [address] Osiel Nelson D.OLeonela [id number] Creatinine [Mass/Vol] 0.72 mg/dL Normal 0.40-1.10 [facility] Comment on above: Order Comment: [facility] has implemented the eGFR calculation approach that does not have a coefficient for race that conforms to the NKF-ASN Task Force Recommendations. Performed By: #### P [id number] #### [facility] [address] [address] Osiel Nelson D.OLeonela [id number] Glucose [Mass/Vol] 88 mg/dL Normal 65-99 [facility] Comment on above: Order Comment: [facility] has implemented the eGFR calculation approach that does not have a coefficient for race that conforms to the NKF-ASN Task Force Recommendations. Performed By: #### P [id number] #### [facility] [address] [address] Dejan Barajas.OLeonela [id number] POC GFR 121 mL/min/1.73 m2 Normal >=60 [facility] Comment on above: Order Comment: [facility] has implemented the eGFR calculation approach that does not have a coefficient for race that conforms to the NKF-ASN Task Force Recommendations. Result Comment: Anastasiia mated GFR was calculated using the 2020 CKD-EPI creatinine equation. Performed By: #### P [id number] #### [facility] [address] [address] Dejan Barajas.OLeonela [id number] POC IONIZED CALCIUM 4.7 mg/dL Normal 4.5-5.3 [facility] Comment on above: Order Comment: [facility] has implemented the eGFR calculation approach that does not have a coefficient for race that conforms to the NKF-ASN Task Force Recommendations. Performed By: #### P [id number] #### [facility] [address] [address] Dejan Barajas.Nilam [id number] Potassium [Moles/Vol] 3.4 mmol/L Low 3.5-5.1 [facility] Comment on above: Order Comment: [facility] has implemented the eGFR calculation approach that does not have a coefficient for race that conforms to the NKF-ASN Task Force Recommendations. Performed By: #### P [id number] #### [facility] PO[facility] [address] [address] Dejan Barajas.OLeonela [id number] Sodium [Moles/Vol] 139 mmol/L Normal 135-145 [facility] Comment on above: Order Comment: [facility] has implemented the eGFR calculation approach that does not have a coefficient for race that conforms to the NKF-ASN Task Force Recommendations. Performed By: #### P [id number] #### [facility] PO[facility] [address] [address] Dejan Barajas.OLeonela [id number] Urea nitrogen [Mass/Vol] 8 mg/dL Normal 8-25 [facility] Comment on above: Order Comment: [facility] has implemented the eGFR calculation approach that does not have a coefficient for race that conforms to the NKF-ASN Task Force Recommendations. Performed By: #### P [id number] #### [facility]ED [facility] PO[facility] [address] [id number] Osiel Nelson D.O. [id number] POC CBC AND DIFFERENTIALon 0 - BASOPHILS ABSOLUTE COUNT 0.04 K/mcL Normal 0.00-0.30 [facility] Comment on above: Performed By: #### L [id number] #### ONED [facility]ED POCT LAB [address] [address] Osiel Nelson, D.O. [id number] Basophils/100 WBC (Bld) 0.4 % Normal [facility] Comment on above: Performed By: #### L [id number] #### ONED FSED POCT LAB [address] [address] Osiel Nelson, D.O. [id number] Eosinophils (Bld) [#/Vol] 0.10 10*3/uL Normal 0.00-0.50 [facility] Comment on above: Performed By: #### L [id number] #### ONED FSED POCT LAB [address] [address] Osiel Nelson, D.O. [id number] Eosinophils/100 WBC (Bld) 1.1 % Normal [facility] Comment on above: Performed By: #### L [id number] #### [facility]ED [facility]ED PO[facility] [address] [address] Osiel Nelson D.O. [id number] Erythrocyte distribution width (RBC) [Ratio] 13.3 % Normal 11.6-14.8 [facility] Comment on above: Performed By: #### L [id number] #### ONED FSED POCT [facility] [address] [address] Osiel Nelson D.O. [id number] Hematocrit (Bld) [Volume fraction] 31.5 % Low 36.0-46.0 [facility] Comment on above: Performed By: #### L [id number] #### ONED FSED POCT LAB [address] [address] Yelena BarajasOLeonela [id number] Hemoglobin (Bld) [Mass/Vol] 10.6 g/dL Low 12.0-16.0 [facility] Comment on above: Performed By: #### L [id number] #### ONED FSED POCT LAB [address] [address] Dejan Barajas.OLeonela [id number] IG ABSOLUTE 0.04 K/mcL Normal 0.00-0.30 [facility] Comment on above: Performed By: #### L [id number] #### ONED FSED POCT LAB [address] [address] Yelena BarajasOLeonela [id number] IG PERCENT 0.40 % Normal [facility] Comment on above: Result Comment: The IG parameter is the percentage of metamyelocytes, myelocytes and promyelocytes. An immature granulocyte count (IG) of 1% or more suggests the possibility of infection, an IG count of 3% is very likely related to an infection. Performed By: #### L [id number] #### [facility]ED [facility] PO[facility] [address] [address] Yelena BarajasOLeonela [id number] Lymphocytes (Bld) [#/Vol] 1.89 10*3/uL Normal 0.90-4.00 [facility] Comment on above: Performed By: #### L [id number] #### ONED FSED POCT LAB [address] [address] Dejan Barajas.OLeonela [id number] Lymphocytes/100 WBC (Bld) 19.9 % Normal [facility] Comment on above: Performed By: #### L [id number] #### ONED FSED POCT LAB [address] [address] Dejan Barajas.OLeonela [id number] MCH (RBC) [Entitic mass] 29.3 pg Normal 26.0-34.0 [facility] Comment on above: Performed By: #### L [id number] #### ONED FSED POCT LAB [address] [address] Osiel Nelson D.O. [id number] MCV (RBC) [Entitic vol] 87.0 fL Normal 80.0-100.0 [facility] Comment on above: Performed By: #### L [id number] #### ONED FSED POCT LAB [address] [address] Osiel Nelson D.O. [id number] MEAN CORPUSCULAR HEMOGLOBIN CONC 33.7 g/dL Normal 31.0-37.0 [facility] Comment on above: Performed By: #### L [id number] #### ONED [facility]ED PO[facility] [address] [address] Osiel Nelson D.O. [id number] Monocytes (Bld) [#/Vol] 0.76 10*3/uL Normal 0.30-0.90 [facility] Comment on above: Performed By: #### L [id number] #### ONED FSED POCT LAB [address] [address] Osiel Nelson D.O. [id number] Monocytes/100 WBC (Bld) 8.0 % Normal [facility] Comment on above: Performed By: #### L [id number] #### ONED FSED POCT LAB [address] [address] Osiel Nelson D.O. [id number] NEUTROPHILS ABSOLUTE COUNT 6.65 K/mcL Normal 1.70-7.00 [facility] Comment on above: Performed By: #### L [id number] #### ONED FSED POCT LAB [address] [address] Osiel Nelson D.O. [id number] Neutrophils/100 WBC (Bld) 70.2 % Normal [facility] Comment on above: Performed By: #### L [id number] #### ONED FSED POCT LAB [address] [address] Osiel Nelson D.O. [id number] Platelet mean volume (Bld) [Entitic vol] 11.3 fL Normal 9.4-12.4 [facility] Comment on above: Performed By: #### L [id number] #### ONED FSED POCT LAB [address] [id number] Osiel Nelson D.O. [id number] Platelets (Bld) [#/Vol] 294 10*3/uL Normal 150-400 [facility] Comment on above: Performed By: #### L [id number] #### ONED FSED POCT LAB [address] [id number] Osiel Nelson D.O. [id number] RBC (Bld) [#/Vol] 3.62 10*6/uL Low 4.00-5.20 [facility] Comment on above: Performed By: #### L [id number] #### ONED FSED POCT LAB [address] [id number] Osiel Nelson D.O. [id number] WBC (Bld) [#/Vol] 9.48 10*3/uL Normal 4.50-11.00 [facility] Comment on above: Performed By: #### L [id number] #### ONED FSED POCT LAB [address] [address] Osiel Nelson D.O. [id number] POC D-DIMER Osmel 5 POC D-DIMER 797 ng/mL DDU High <350 [facility] Comment on above: Order Comment: A [...] #### ONED FSED POCT LAB [address] [address] Osiel Nelson D.O. [id number] POC TROPONIN I Osmel 2024 POC TROPONIN I < Normal <0.05 [facility] Comment on above: Performed By: #### [id number] #### ONED FSED POCT LAB [address] [id number] Osiel Nelson D.O. [id number] Laboratory - Chemistry and C hemistry - challengeOrdered By: Sarah Ramos on 12-12-2024 Glucose Ql (U) Negative [facility] - UrinalysisOrder ed By: Sarah Ramos on 12-12-2024 Protein Ql (U) Negative [facility] Medical Investigator Office Visit Reporton 12-12-2024 Medical Investigator Office Visit Report [facility] [address], [address] [place] [address] OFFICE VISIT Date of Service: 12/12/24 MR#: [id number] Acct: [id number] Name: NAN MEYERS Rep #: [id number] : 2000 Provider: Dr. Sarah Zamudio DO Age/Sex: 24/F [place] [facility] [place]: Signed Intake Vital Signs 09/16/24 11:33 11/14/24 11:40 12/12/24 13:20 12/12/24 13:21 Height 5 ft 5 ft 5 ft 5 ft Weight: 154 lb 6 oz BMI 30.1 BP 118/66 Intake Visit Reasons: 21wk ob Template Fitter Required: No Is patient in pain?: No Allergies No Known Allergies Allergy (Verified 12/12/24 13:20) Medications ???Medication ???Instructions ???Recorded ???Confirmed ???Type docosahexaenoic acid 200 mg mg PO 08/27/24 12/12/24 History capsule ( DHA) ondansetron HCl 4 mg tablet 4 mg PO Q4H #60 tabs 10/10/24 0811/29 Rx Last Menstrual Period: 07/17/24 Zika: Zika virus screening: Negative : No PFSH PFSH Medical History ADHD Anxiety , ectopic, tubal Surgical History History of ectopic Family History Mother Thyroid disorder Adopted Hypertension Hyperlipidemia Grandmother Hypertension Grandfather Hypertension Father Asthma Social History adopted: No household members: significant other and other details: Brother his baby current occupational status: employed current occupation: [employer] current occupational exposures/hazards: No pets and animals: [...] physical activity do you participate in: none christopher/sikh: None seatbelt use: always do you feel safe at home: Yes additional social history: BF: Edward - [employer] History 2 Elective abortions Hx Para 0 [...] Br US (more content not included)... Normal [facility] Chlamydia/GC VISHNU aptimaon CHLAMY,NUC ACID Negative Normal Negative [facility] Comment on above: Performed By: #### L 7000.1800 #### [facility] [address] [place], [place], [id number] GC BY NUC ACID Negative Normal Negative [facility] Comment on above: Result Comment: Perf ormed at: =G - [facility] [address] [id number] Advertising Sales Assistant: Birdie Tobin MD, Phone: [phone] Performed By: #### L 7000.1800 #### [facility] [address] [place], [place], [id number] Chlamydia trachomatis rRNA d etection by probe and target amplification methodOrdered By: Glendy Arvizu on 11-14-2024 C. trachomatis rRNA VISHNU+probe Ql (Unsp spec) Negative Negative [facility] - Chemistry and C hemistry - challengeOrdered By: Glendy Arvizu on 11-14-2024 Bilirubin Ql (U) Negative [facility] Glucose Ql (U) Negative [facility] Ketones Ql (U) Negative [facility] pH (U) 7 [pH] [facility] Specific gravity (U) [Rel density] 1.010 [facility] Urobilinogen (U) [Mass/Vol] Negative [facility] - Hematology and Cell countsOrdered By: Glendy Arvizu on 11-14-2024 Hemoglobin Ql (U) Negative [facility] - Specimen inform ationOrdered By: Glendy Arvizu on 11-14-2024 Clarity (U) Clear [facility] Color (U) Yellow [facility] - UrinalysisOrder ed By: Glendy Arvizu on 11-14-2024 Nitrite Ql (U) Negative [facility] Protein Ql (U) Trace [facility] Neisseria gonorrhoeae nuclei c acid detection by amplified probe techniqueOrdered By: Glendy Arvizu on 11-14-2024 N. gonorrhoeae DNA VISHNU+probe Ql (Unsp spec) Negative Negative [facility] Comment on above: Performed at: =[address] [id number] Director: Birdie Tobin MD, Phone: [phone] No Panel InformationOrdered By: Glendy Arvizu on 11-14-2024 Urine Leukocytes Negatve [facility] Urine Non-Hemolyzed Blood [facility] Medical Investigator Office Visit Reporton 11-14-2024 Medical Investigator Office Visit Report [facility] [address], [address] [place] [address] OFFICE VISIT Date of Service: 11/14/24 MR#: [id number] Acct: [id number] Name: NAN MEYERS Rep #: [id number] : 2000 Provider: NURYS Swenson ams Age/Sex: 24/F [place] [facility] [place]: Signed Intake Vital Signs 09/16/24 11:33 11/02/24 09:08 11/14/24 11:40 Height 5 ft 5 ft 5 ft Weight: 143 lb 8 oz BMI 28.0 BP 128/71 H Intake Visit Reasons: 17wk ob Chief Complaint: 17wk OB Template Fitter Required: No Is patient in pain?: No [...] baby current occupational status: employed current occupation: [employer] current occupational exposures/hazards: No pets and animals: [...] physical activity do you participate in: none christopher/sikh: None seatbelt use: always do you feel safe at home: Yes additional social history: BF: Edward - [employer] Assistant History 2 Elective abortions Hx Para 0 [...] -???-???-???-???-??? -???-???- Negative 147 -???-???-???-???-??? -???-???-???-???-??? -???-???- MH-No VB. V omited up zithromax for chlamydia. Will retreat and instructed on use of zofran prior. Br US confirm FHT 11/14/24 -???-???-???-???-??? -???-???-???-?? (more content not included)... Normal [facility] Absolute lymphocyte countOrd ered By: Mike Dill on 11-02-2024 Lymphocytes Auto (Unsp spec) [#/Vol] 2.52 10*3/uL 0.83-4.51 [facility] Absolute neutrophil countOrd ered By: Mike Dill on 11-02-2024 Neutrophils (Bld) [#/Vol] 5.1 10*3/uL 2.0-7.7 [facility] Anion gap in Serum or Plasma Ordered By: Mike Dill on 11-02-2024 Anion gap [Moles/Vol] 12 mmol/L 5-15 [facility] Automated lymphocyte count a s percentage of total leukocytesOrdered By: Mike Dill on 11-02-2024 Lymphocytes/100 WBC Auto (Unsp spec) 29.1 % 19-41 [facility] BUN/creatinine ratioOrdered By: Mike Dill on 11-02-2024 Urea nitrogen/Creatinine [Mass ratio] 12.9 mg/mg 10-20 [facility] Basic Metabolic Profile (BMP )on 11-02-2024 BUN/CRE 12.9 RATIO Normal 10-20 [facility] Comment on above: Performed By: #### L 100.0100, L700.8000, L500.2500 ####[facility] [address] [place], [address] Calcium [Mass/Vol] 8.9 mg/dL Normal 7.6-11.0 [facility] Comment on above: Performed By: #### L 100.0100, L700.8000, L500.2500 ####[facility] [address] [place], [address] Chloride [Moles/Vol] 102 mmol/L Normal 98-108 [facility] Comment on above: Performed By: #### L 100.0100, L700.8000, L500.2500 ####[facility] [address] [place], [address] CO2 [Moles/Vol] 20.7 mmol/L Low 21.0-32.0 [facility] Comment on above: Performed By: #### L 100.0100, L700.8000, L500.2500 ####[facility] [address] [place], [address] Creatinine [Mass/Vol] 0.58 mg/dL Low 0.70-1.20 [facility] Comment on above: Performed By: #### L 100.0100, L700.8000, L500.2500 ####[facility] [address] [place], [address] ECRCL 128.10 ml/min Normal 50-250 [facility] Comment on above: Performed By: #### L 100.0100, L700.8000, L500.2500 ####[facility] [address] [place], [address] GAP 12 Normal 5-15 [facility] Comment on above: Performed By: #### L 100.0100, L700.8000, L500.2500 ####[facility] [address] [place], [address] GFR/1.73 sq M.predicted among non-blacks MDRD (S/P/Bld) [Vol rate/Area] 131 mL/min/{1.73_m2} Normal >60 [facility] Comment on above: Result Comment: mL/m in/1.73m2 CKD-EPI Creatinine Equation (2020) Performed By: #### L 100.0100, L700.8000, L500.2500 ####[facility] [address] [place], [address] Glucose [Mass/Vol] 87 mg/dL Normal 70-99 [facility] Comment on above: Performed By: #### L 100.0100, L700.8000, L500.2500 ####[facility] [address] [place], [address] Potassium [Moles/Vol] 3.8 mmol/L Normal 3.3-5.1 [facility] Comment on above: Performed By: #### L 100.0100, L700.8000, L500.2500 ####[facility] [address] [place], [address] Sodium [Moles/Vol] 135 mmol/L Normal 133-145 [facility] Comment on above: Performed By: #### L 100.0100, L700.8000, L500.2500 ####[facility] [address] [place], [address] Urea nitrogen [Mass/Vol] 7 mg/dL Normal 4-19 [facility] Comment on above: Performed By: #### L 100.0100, L700.8000, L500.2500 ####[facility] [address] [place], [address] Basophil percentageOrdered B y: Mike Dill on 11-02-2024 Basophils/100 WBC (Bld) 0.6 % 0-1 [facility] Bilirubin Test strip Ql (U)O rdered By: Mike Dill on 11-02-2024 Bilirubin Ql (U) Negative Negative [facility] CBC W/Diff, Automatedon 10-07 Absolute Lymph 2.52 X10 3/uL Normal 0.83-4.51 [facility] Comment on above: Performed By: #### L 100.0100, L700.8000, L500.2500 ####[facility] [address] [place], [address] Absolute Neut 5.1 X10 3/uL Normal 2.0-7.7 [facility] Comment on above: Performed By: #### L 100.0100, L700.8000, L500.2500 ####[facility] [address] [place], [address] Basophils/100 WBC (Bld) 0.6 % Normal 0-1 [facility] Comment on above: Performed By: #### L 100.0100, L700.8000, L500.2500 ####[facility] [address] [place], [address] Eosinophils/100 WBC (Bld) 1.4 % Normal 0-5 [facility] Comment on above: Performed By: #### L 100.0100, L700.8000, L500.2500 ####[facility] [address] [place], [address] Erythrocyte distribution width (RBC) [Ratio] 14.2 % Normal 11.6-14.6 [facility] Comment on above: Performed By: #### L 100.0100, L700.8000, L500.2500 ####[facility] [address] [place], [address] Hematocrit (Bld) [Volume fraction] 34.9 % Low 37-47 [facility] Comment on above: Performed By: #### L 100.0100, L700.8000, L500.2500 ####[facility] [address] [place], [address] Hemoglobin (Bld) [Mass/Vol] 12.2 g/dL Normal 12.0-15.0 [facility] Comment on above: Performed By: #### L 100.0100, L700.8000, L500.2500 ####[facility] [address] [place], [address] IG% 0.200 Normal 0.0-0.9 [facility] Comment on above: Result Comment: IG% - Immature Granulocytes (promyelocytes, myelocytes and metamyelocytes) > 1% indicates that a LEFT SHIFT is Present. Performed By: #### L 100.0100, L700.8000, L500.2500 ####[facility] [address] [place], [address] Lymphocytes/100 WBC (Bld) 29.1 % Normal 19-41 [facility] Comment on above: Performed By: #### L 100.0100, L700.8000, L500.2500 ####[facility] [address] [place], [address] MCH (RBC) [Entitic mass] 30.4 pg Normal 27.0-32.0 [facility] Comment on above: Performed By: #### L 100.0100, L700.8000, L500.2500 ####[facility] [address] [place], [address] MCHC (RBC) [Mass/Vol] 35.0 g/dL Normal 32-36 [facility] Comment on above: Performed By: #### L 100.0100, L700.8000, L500.2500 ####[facility] [address] [place], [address] MCV (RBC) [Entitic vol] 87.0 fL Normal 81-99 [facility] Comment on above: Performed By: #### L 100.0100, L700.8000, L500.2500 ####[facility] [address] [place], [address] Monocytes/100 WBC (Bld) 9.6 % Normal 0-10 [facility] Comment on above: Performed By: #### L 100.0100, L700.8000, L500.2500 ####[facility] [address] [place], [address] Neutrophils/100 WBC (Bld) 59.1 % Normal 47-70 [facility] Comment on above: Performed By: #### L 100.0100, L700.8000, L500.2500 ####[facility] [address] [place], [address] Nucleated RBC (Bld) [#/Vol] 0 10*3/uL Normal 0-5 [facility] Comment on above: Performed By: #### L 100.0100, L700.8000, L500.2500 ####[facility] [address] [place], [address] Platelet mean volume (Bld) [Entitic vol] 11.7 fL Normal 6.2-12.0 [facility] Comment on above: Performed By: #### L 100.0100, L700.8000, L500.2500 ####[facility] [address] [place], [address] Platelets (Bld) [#/Vol] 278 10*3/uL Normal 150-450 [facility] Comment on above: Performed By: #### L 100.0100, L700.8000, L500.2500 ####[facility] [address] [place], [address] RBC (Bld) [#/Vol] 4.01 10*6/uL Low 4.2-5.4 [facility] Comment on above: Performed By: #### L 100.0100, L700.8000, L500.2500 ####[facility] [address] [place], [address] RDW SD 45.3 fl High 35.1-43.9 [facility] Comment on above: Performed By: #### L 100.0100, L700.8000, L500.2500 ####[facility] [address] [place], [address] WBC (Bld) [#/Vol] 8.7 10*3/uL Normal 4.4-11.0 [facility] Comment on above: Performed By: #### L 100.0100, L700.8000, L500.2500 ####[facility] [address] [place], [address] Carbon dioxide, total [Moles /volume] in Central venous bloodOrdered By: Mike Dill on 11-02-2024 CO2 [Moles/Vol] 20.7 mmol/L Low 21.0-32.0 [facility] Chloride assayOrdered By: Miguel Dill on 11-02-2024 Chloride [Moles/Vol] 102 mmol/L 98-108 [facility] Emergency Department Summary on 11-02-2024 Emergency Department Summary [facility] Medical Records Department [address] [place] [address] Emergency Department Summary 11/02/24 MR#: [id number] Acct: [id number] Name: NAN MEYERS Rep #: [id number] : 2000 24 From: Mike Dill DO PCP: MARISA WILLIAM CORPORATE CLAIMS EXAMINER-Isadora Status:DEP ER Location: ED HPI HPI - Female History of Present Illness Chief Complaint: Vag Bld, Preg Informant: patient Pain Pain: Positive for Pelvic Pain Onset: Today Context: Gradual Onset Timing: Intermittent Quality: Positive for Cramping Location: Suprapubic Current Severity: 07/15 Bleeding Issue: Positive for Vaginal bleeding and [...] Patient states she follows with Dr. Nereida Chou and [place] [facility]. Patient states she was also recently diagnosed with chlamydia. Patient was given Zithromax to take at home. Patient states she was able to keep 1 pill down but vomited the second pill. Patient was unable to complete her treatment. [facility] Medical History ADHD Anxiety , ectopic, tubal [...] baby current occupational status: employed current occupation: [employer] current occupational exposures/hazards: No pets and animals: [...] physical activity do you participate in: none christopher/sikh: None seatbelt use: always do you feel safe at home: Yes additional social history: BF: Fausto - [employer] Assistant ROS ROS ED Constitutional Constitutional ED: Denies [...] F [place] (more content not included)... Normal [facility] Eosinophil percentageOrdered By: Mike Dill on 11-02-2024 Eosinophils/100 WBC (Bld) 1.4 % 0-5 [facility] Erythrocyte distribution wid th ratioOrdered By: Mike Dill on 11-02-2024 Erythrocyte distribution width (RBC) [Ratio] 14.2 % 11.6-14.6 [facility] Erythrocyte distribution wid th standard deviationOrdered By: Mike Dill on 11-02-2024 Erythrocyte distribution width (RBC) [Ratio] 45.3 fl High 35.1-43.9 [facility] Glomerular filtration rate ( GFR) estimation/1.73 sq m using serum, plasma, or whole bOrdered By: Mike Dill on 11-02-2024 GFR/1.73 sq M.predicted among non-blacks MDRD (S/P/Bld) [Vol rate/Area] 131 mL/min/{1.73_m2} >60 [facility] Comment on above: mL/min/1.73m2 CKD-EP I Creatinine Equation (2020) Hematocrit Auto (Bld) [Volum e fraction]Ordered By: Mike Dill on 11-02-2024 Hematocrit (Bld) [Volume fraction] 34.9 % Low 37-47 [facility] Hemoglobin measurementOrdere d By: Mike Dill on 11-02-2024 Hemoglobin (Bld) [Mass/Vol] 12.2 g/dL 12.0-15.0 [facility] Immature granulocytes/100 WB C Auto (Bld)Ordered By: Mike Dill on 11-02-2024 Immature granulocytes/100 WBC (Bld) 0.200 % 0.0-0.9 [facility] Comment on above: IG% - Immature Granu locytes (promyelocytes, myelocytes and metamyelocytes) > 1% indicates that a LEFT SHIFT is Present. Ketones Test strip Ql (U)Ord ered By: Mike Dill on 11-02-2024 Ketones Ql (U) 5 mg/dl High Negative [facility] MCV (mean corpuscular volume ) determinationOrdered By: Mike Dill on 11-02-2024 MCV (RBC) [Entitic vol] 87.0 fL 81-99 [facility] Mean corpuscular hemoglobin (MCH) determinationOrdered By: Mike Dill 11-02-2024 MCH (RBC) [Entitic mass] 30.4 pg 27.0-32.0 [facility] Mean corpuscular hemoglobin concentration (MCHC) determinationOrdered By: Mike Dill 11-02-2024 MCHC (RBC) [Mass/Vol] 35.0 g/dL 32-36 [facility] Mean platelet volume determi nationOrdered By: Mike Dill on 11-02-2024 Platelet mean volume (Bld) [Entitic vol] 11.7 fL 6.2-12.0 [facility] Microscopic analysis of urin e for red blood cells (RBC)Ordered By: Mike Dill on 11-02-2024 Microscopic analysis of urine for red blood cells (RBC) > 100 SEEN /hpf 0-5 [facility] Monocyte percentageOrdered B y: Mike Dill on 11-02-2024 Monocytes/100 WBC (Bld) 9.6 % 0-10 [facility] Mucus LM Ql (Urine sed)Order ed By: Mike Dill on 11-02-2024 Mucus Ql (Urine sed) 0 SEEN /hpf [facility] Neutrophil percentageOrdered By: Mike Dill on 11-02-2024 Neutrophils/100 WBC (Bld) 59.1 % 47-70 [facility] Nitrite Test strip Ql (U)Ord ered By: Mike Dill on 11-02-2024 Nitrite Ql (U) Negative Negative [facility] Nucleated red blood cell per centageOrdered By: Mike Dill on 11-02-2024 Nucleated RBC/100 WBC (Bld) [Ratio] 0 % 0-5 [facility] OB Limited With Biometricson 11-02-2024 OB Limited With Biometrics [facility] Imaging Services [address] [place] [address] [id number] OB Limited With Biometrics MR#: [id number] Acct: [id number] Name: NAN MEYERS Rep #: [id number] : 2000 F 24 From: Negro Schwarz DO PCP: MARISA WILLIAM [employer] CLAIMS EXAMINER-C Status: REG ER Study: OB Limited With Biometrics Date of Exam: 11/02 Exam# [id number] Ordering Dr: Mike Dill DO PROCEDURE: OB [...] above diagnosis is low. Maternal- medicine in [facility] consult may be considered Reading [facility] CC: MARISA YANES; Dr. Mike Dill, Reconciliation Machine Operator: Signed Normal [facility] Platelet countOrdered By: Miguel Dill on 11-02-2024 Platelets (Bld) [#/Vol] 278 10*3/uL 150-450 [facility] Potassium measurement (mass/ volume)Ordered By: Mike Dill on 11-02-2024 Potassium (Unsp spec) [Mass/Vol] 3.8 mmol/L 3.3-5.1 [facility] Protein Test strip Ql (U)Ord ered By: Mike Dill on 11-02-2024 Protein Ql (U) 500 mg/dl High Negative [facility] RBC Auto (Bld) [#/Vol]Ordere d By: Mike Dill on 11-02-2024 RBC (Bld) [#/Vol] 4.01 10*6/uL Low 4.2-5.4 [facility] Serum creatinine measurement (mass/volume)Ordered By: Mike Dill on 11-02-2024 Creatinine [Mass/Vol] 0.58 mg/dL Low 0.70-1.20 [facility] Serum glucose measurement (m ass/volume)Ordered By: Mike Dill on 11-02-2024 Glucose [Mass/Vol] 87 mg/dL 70-99 [facility] Serum human chorionic gonado tropin detection for pregnancyOrdered By: Mike Dill on 11-02-2024 HCG ( test) Ql [address] mIU/mL High <9 [facility] Comment on above: Gestational Age0.2-1 Week: 5-50 mIU/mL1-2 Weeks: 50-500 mIU/mL2-3 Weeks: 100-5000 mIU/mL3-4 Weeks: 500-10,000 mIU/mL4-5 Weeks:1000-50,000 mIU/mL5-6 Weeks: 10,000-100,000 mIU/mL6-8 Weeks: 15,000-200,000 mIU/mL2-3 Months:10,000-100,000 mIU/mL Serum or plasma calcium bryan urement (mass/volume)Ordered By: Mike Dill on 11-02-2024 Calcium [Mass/Vol] 8.9 mg/dL 7.6-11.0 [facility] Serum or plasma urea nitroge n measurement (mass/volume)Ordered By: Mike Dill on 11-02-2024 Urea nitrogen [Mass/Vol] 7 mg/dL 4-19 [facility] Sodium levelOrdered By: Mike Dill on 11-02-2024 Sodium [Moles/Vol] 135 mmol/L 133-145 [facility] Squamous epithelial cells de tection in urine sediment by light microscopyOrdered By: Mike Dill on 11-02-2024 Epithelial cells.squamous LM Ql (Urine sed) 0-5 SEEN /hpf 5-10 [facility] Urinalysis, Completeon 11-02 EPI,SQUAMOUS 0-5 SEEN Normal 5-10 [facility] Comment on above: Order Comment: COLOR OF URINE MAY AFFECT DIPSTICK RESULTS. CLEAN CATCH Performed By: #### L 400.0001 #### [facility] [address] [place], [address] RBC > 100 SEEN Normal 0-5 [facility] Comment on above: Order Comment: COLOR OF URINE MAY AFFECT DIPSTICK RESULTS. CLEAN CATCH Performed By: #### L 400.0001 #### [facility] [address] [place], [address] WBC 0-5 SEEN Normal 0-5 [facility] Comment on above: Order Comment: COLOR OF URINE MAY AFFECT DIPSTICK RESULTS. CLEAN CATCH Performed By: #### L 400.0001 #### [facility] [address] [place], [address] BACTERIA 0 SEEN Normal None Seen [facility] Comment on above: Order Comment: COLOR OF URINE MAY AFFECT DIPSTICK RESULTS. CLEAN CATCH Performed By: #### L 400.0001 #### [facility] [address] [place], [address] Mucus Ql (Urine sed) 0 SEEN Normal [facility] Comment on above: Order Comment: COLOR OF URINE MAY AFFECT DIPSTICK RESULTS. CLEAN CATCH Performed By: #### L 400.0001 #### [facility] [address] [place], [address] Urine clarityOrdered By: Maine Dill on 11-02-2024 Clarity (U) Turbid Clear [facility] Urine color determinationOrd ered By: Mike Dill on 11-02-2024 Color (U) Red Yellow [facility] Urine glucose detectionOrder ed By: Mike Dill on 11-02-2024 Glucose Ql (U) Normal mg/dl Normal [facility] Urine leukocyte esterase det ection by dipstickOrdered By: Mike Dill on 11-02-2024 Leukocyte esterase Test strip Ql (U) 25 /ul High Negative [facility] Urine pHOrdered By: Mike benavides on 11-02-2024 pH (U) 7.0 [pH] 5.0 - 8.0 [facility] Urine sediment bacteria coun t by microscopy (number/high power field)Ordered By: Mike Dill on 11-02-2024 Bacteria LM.HPF (Urine sed) [#/Area] 0 /[HPF] None Seen [facility] Urine specific gravity measu rementOrdered By: Mike Dill on 11-02-2024 Specific gravity (U) [Rel density] 1.010 1.002-1.030 [facility] Urine urobilinogen measureme ntOrdered By: Mike Dill on 11-02-2024 Urobilinogen Ql (U) Normal mg/dl Normal [facility] White blood cell (WBC) count Ordered By: Mike Dill on 11-02-2024 WBC (Bld) [#/Vol] 8.7 10*3/uL 4.4-11.0 [facility] White blood cell countOrdere d By: Mike Dill on 11-02-2024 White blood cell count 0-5 SEEN /hpf 0-5 [facility] hCG Titer Quant., Serumon HCG QUANT. 00850 mIU/mL High <9 non-preg [facility] Comment on above: Result Comment: Gest ational Age 0.2-1 Week: 5-50 mIU/mL 1-2 Weeks: 50-500 mIU/mL 2-3 Weeks: 100-5000 mIU/mL 3-4 Weeks: 500-10,000 mIU/mL 4-5 Weeks:1000-50,000 mIU/mL 5-6 Weeks: 10,000-100,000 mIU/mL 6-8 Weeks: 15,000-200,000 mIU/mL 2-3 Months:10,000-100,000 mIU/mL Performed By: #### L 100.0100, L700.8000, L500.2500 ####[facility] [address] [place], [address] Laboratory - Chemistry and C hemistry - challengeOrdered By: Negrita Vital on 10-15-2024 Glucose Ql (U) Negative [facility] - UrinalysisOrder ed By: Negrita Vital on 10-15-2024 Protein Ql (U) Negative [facility] Medical Investigator Office Visit Reporton 10-15-2024 Medical Investigator Office Visit Report [facility] [address], [address] [place] [address] OFFICE VISIT Date of Service: 10/15/24 MR#: [id number] Acct: [id number] Name: NAN MEYERS Rep #: [id number] : 2000 Provider: DEBORAH grey Age/Sex: 24/F [place] [facility] [place]: Signed Intake Vital Signs 08/29/23 14:31 09/16/24 11:33 10/15/24 08:32 Height 5 ft 5 ft 5 ft Weight: 143 lb 6 oz BMI 28.0 BP 116/70 Intake Visit Reasons: 13wk ob Chief Complaint: 13 Week OB Template Fitter Required: No Is patient in pain?: No [...] baby current occupational status: employed current occupation: [employer] current occupational exposures/hazards: No pets and animals: [...] physical activity do you participate in: none christopher/sikh: None seatbelt use: always do you feel safe at home: Yes additional social history: BF: Fausto - [employer] History 2 Elective abortions Hx Para 0 [...] -???-???-???-???-??? -???-???-???-???-??? -???-???- 147 -???-???-???-???-??? -???-???-???-???-??? -???-???- MH-No VB. V omited up zithr (more content not included)... Normal [facility] Absolute lymphocyte countOrd ered By: Nereida Chou on 10-02-2024 Lymphocytes Auto (Unsp spec) [#/Vol] 1.89 10*3/uL 0.83-4.51 [facility] Absolute neutrophil countOrd ered By: Nereida Chou on 10-02-2024 Neutrophils (Bld) [#/Vol] 6.2 10*3/uL 2.0-7.7 [facility] Automated lymphocyte count a s percentage of total leukocytesOrdered By: Nereida Chou on 10-02-2024 Lymphocytes/100 WBC Auto (Unsp spec) 21.4 % 19-41 [facility] Basophil percentageOrdered B y: Nereida Chou on 10-02-2024 Basophils/100 WBC (Bld) 0.3 % 0-1 [facility] CBC W/Diff, Automatedon 09-06 Absolute Lymph 1.89 X10 3/uL Normal 0.83-4.51 [facility] Comment on above: Performed By: #### L 509.4006, BTS, L3890.6006, L100.0100, L3890.6102, L3890.6301, L509.8002 #### [facility] [address] [place], [address] Absolute Neut 6.2 X10 3/uL Normal 2.0-7.7 [facility] Comment on above: Performed By: #### L 509.4006, BTS, L3890.6006, L100.0100, L3890.6102, L3890.6301, L509.8002 #### [facility] [address] [place], [address] Basophils/100 WBC (Bld) 0.3 % Normal 0-1 [facility] Comment on above: Performed By: #### L 509.4006, BTS, L3890.6006, L100.0100, L3890.6102, L3890.6301, L509.8002 #### [facility] [address] [place], [address] Eosinophils/100 WBC (Bld) 0.8 % Normal 0-5 [facility] Comment on above: Performed By: #### L 509.4006, BTS, L3890.6006, L100.0100, L3890.6102, L3890.6301, L509.8002 #### [facility] [address] [place], [address] Erythrocyte distribution width (RBC) [Ratio] 15.0 % High 11.6-14.6 [facility] Comment on above: Performed By: #### L 509.4006, BTS, L3890.6006, L100.0100, L3890.6102, L3890.6301, L509.8002 #### [facility] [address] [place], [address] Hematocrit (Bld) [Volume fraction] 38.5 % Normal 37-47 [facility] Comment on above: Performed By: #### L 509.4006, BTS, L3890.6006, L100.0100, L3890.6102, L3890.6301, L509.8002 #### [facility] [address] [place], [address] Hemoglobin (Bld) [Mass/Vol] 12.9 g/dL Normal 12.0-15.0 [facility] Comment on above: Performed By: #### L 509.4006, BTS, L3890.6006, L100.0100, L3890.6102, L3890.6301, L509.8002 #### [facility] [address] [place], [address] IG% 0.200 Normal 0.0-0.9 [facility] Comment on above: Result Comment: IG% - Immature Granulocytes (promyelocytes, myelocytes and metamyelocytes) > 1% indicates that a LEFT SHIFT is Present. Performed By: #### L 509.4006, BTS, L3890.6006, L100.0100, L3890.6102, L3890.6301, L509.8002 #### [facility] [address] [place], [address] Lymphocytes/100 WBC (Bld) 21.4 % Normal 19-41 [facility] Comment on above: Performed By: #### L 509.4006, BTS, L3890.6006, L100.0100, L3890.6102, L3890.6301, L509.8002 #### [facility] [address] [place], [address] MCH (RBC) [Entitic mass] 29.3 pg Normal 27.0-32.0 [facility] Comment on above: Performed By: #### L 509.4006, BTS, L3890.6006, L100.0100, L3890.6102, L3890.6301, L509.8002 #### [facility] [address] [place], [address] MCHC (RBC) [Mass/Vol] 33.5 g/dL Normal 32-36 [facility] Comment on above: Performed By: #### L 509.4006, BTS, L3890.6006, L100.0100, L3890.6102, L3890.6301, L509.8002 #### [facility] [address] [place], [address] MCV (RBC) [Entitic vol] 87.5 fL Normal 81-99 [facility] Comment on above: Performed By: #### L 509.4006, BTS, L3890.6006, L100.0100, L3890.6102, L3890.6301, L509.8002 #### [facility] [address] [place], [address] Monocytes/100 WBC (Bld) 7.3 % Normal 0-10 [facility] Comment on above: Performed By: #### L 509.4006, BTS, L3890.6006, L100.0100, L3890.6102, L3890.6301, L509.8002 #### [facility] [address] [place], [address] Neutrophils/100 WBC (Bld) 70.0 % Normal 47-70 [facility] Comment on above: Performed By: #### L 509.4006, BTS, L3890.6006, L100.0100, L3890.6102, L3890.6301, L509.8002 #### [facility] [address] [place], [address] Nucleated RBC (Bld) [#/Vol] 0 10*3/uL Normal 0-5 [facility] Comment on above: Performed By: #### L 509.4006, BTS, L3890.6006, L100.0100, L3890.6102, L3890.6301, L509.8002 #### [facility] [address] [place], [address] Platelet mean volume (Bld) [Entitic vol] 12.0 fL Normal 6.2-12.0 [facility] Comment on above: Performed By: #### L 509.4006, BTS, L3890.6006, L100.0100, L3890.6102, L3890.6301, L509.8002 #### [facility] [address] [place], [address] Platelets (Bld) [#/Vol] 339 10*3/uL Normal 150-450 [facility] Comment on above: Performed By: #### L 509.4006, BTS, L3890.6006, L100.0100, L3890.6102, L3890.6301, L509.8002 #### [facility] [address] [place], [address] RBC (Bld) [#/Vol] 4.40 10*6/uL Normal 4.2-5.4 [facility] Comment on above: Performed By: #### L 509.4006, BTS, L3890.6006, L100.0100, L3890.6102, L3890.6301, L509.8002 #### [facility] [address] [place], [address] RDW SD 48.4 fl High 35.1-43.9 [facility] Comment on above: Performed By: #### L 509.4006, BTS, L3890.6006, L100.0100, L3890.6102, L3890.6301, L509.8002 #### [facility] [address] [place], [address] WBC (Bld) [#/Vol] 8.9 10*3/uL Normal 4.4-11.0 [facility] Comment on above: Performed By: #### L 509.4006, BTS, L3890.6006, L100.0100, L3890.6102, L3890.6301, L509.8002 #### [facility] [address] [place], [address] Eosinophil percentageOrdered By: Nereida Chou on 10-02-2024 Eosinophils/100 WBC (Bld) 0.8 % 0-5 [facility] Erythrocyte distribution wid th ratioOrdered By: Nereida Chou on 10-02-2024 Erythrocyte distribution width (RBC) [Ratio] 15.0 % High 11.6-14.6 [facility] Erythrocyte distribution wid th standard deviationOrdered By: Nereida Chou on 10-02-2024 Erythrocyte distribution width (RBC) [Ratio] 48.4 fl High 35.1-43.9 [facility] HIVon 10-02-2024 HIV Non-Reactive Normal Nonreactive [facility] Comment on above: Result Comment: Non- Reactive Reactive Repeatedly reactive samples must be confirmed according to CDC recommended confirmatory algorithms. The subresults for either HIVAG or AHIV can be used as an aid in the selection of the confirmation algorithm for reactive samples. Send out specimens with Reactive results to [facility] for confirmation. Order the HIV antibody detection and differentiation: lc#[id number] Performed By: #### L 509.4006, BTS, L3890.6006, L100.0100, L3890.6102, L3890.6301, L509.8002 ####[facility] [address] [place], [address] Hematocrit Auto (Bld) [Volum e fraction]Ordered By: Nereida Chou on 10-02-2024 Hematocrit (Bld) [Volume fraction] 38.5 % 37-47 [facility] Hemoglobin measurementOrdere d By: Nereida Chou on 10-02-2024 Hemoglobin (Bld) [Mass/Vol] 12.9 g/dL 12.0-15.0 [facility] Hepatitis C Antibodyon 10-02 Hepatitis C Ab Non-Reactive Normal Nonreactive [facility] Comment on above: Result Comment: Reac tive: Presumptive evidence of antibodies to HCV. Follow CDC recommendations for supplemental testing. Non-Reactive: Antibodies to HCV were not detected; does not exclude the possibility of exposure to HCV Reactive Results are presumptive evidence of antibodies to HCV. Follow CDC recommendations for supplemental testing. Order confirmation testing: HCV Quant by PCR testing - HCVPCR #[id number] Non Reactive: < 0.8 Equivocal: >/= 0.8 to < 1.0 Reactive: >/= 1.0 The CDC requires that a reactive/equivocal HCV antibody result be sent out for confirmation. HCV Quant by PCR testing. Performed By: #### L 509.4006, BTS, L3890.6006, L100.0100, L3890.6102, L3890.6301, L509.8002 ####[facility] [address] [facility]. [place], [place], [id number] Immature granulocytes/100 WB C Auto (Bld)Ordered By: Nereida Chou on 10-02-2024 Immature granulocytes/100 WBC (Bld) 0.200 % 0.0-0.9 [facility] Comment on above: IG% - Immature Granu locytes (promyelocytes, myelocytes and metamyelocytes) > 1% indicates that a LEFT SHIFT is Present. L3890.6102on 10-02-2024 HEP B Surf Ag Non-Reactive Normal Nonreactive [facility] Comment on above: Result Comment: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 mm[Hg] Dr. Unique Rivas MD Work Phone: 9(404)343-502391 [place] [address] 01-27-2025 09:50-0400 Systolic blood pressure 122 mm[Hg] Dr. Unique Rivas MD Work Phone: 2(875)668-521191 [place] [address] 01-09-2025 10:32-0400 Body height 152.[address] Unique Rivas MD Work Phone: 9(146)674-180091 [place] [address] 01-09-2025 10:32-0400 Body mass index (BMI) [Ratio] 31.4 kg/m2 Dr. Unique Rivas MD Work Phone: 6(566)498-549391 [place] [address] 01-09-2025 10:32-0400 Body weight 72.[address] Unique Rivas MD Work Phone: 0(475)585-487491 [place] [address] 01-09-2025 10:32-0400 Diastolic blood pressure 70 mm[Hg] Dr. Unique Rivas MD Work Phone: 5(222)063-999691 [place] [address] 01-09-2025 10:32-0400 Systolic blood pressure 116 mm[Hg] Dr. Unique Rivas MD Work Phone: 7(114)693-957291 [place] [address] 12-12-2024 13:21-0400 Body height 152.[address] Unique Rivas MD Work Phone: 9(052)187-412091 [place] [address] 12-12-2024 13:20-0400 Body mass index (BMI) [Ratio] 30.1 kg/m2 Dr. Unique Rivas MD Work Phone: 4(578)989-084891 [place] [address] 12-12-2024 13:20-0400 Body weight 70.[address] Unique Rivas MD Work Phone: 7(355)655-373191 [place] [address] 12-12-2024 13:20-0400 Diastolic blood pressure 66 mm[Hg] Dr. Unique Rivas MD Work Phone: 8(151)232-975591 [place] [address] 12-12-2024 13:20-0400 Systolic blood pressure 118 mm[Hg] Dr. Unique Rivas MD Work Phone: 2(404)255-589091 [place] [address] 12-10-2024 01:40-0400 Body temperature 97.2 [degF] Gato Trujillo MD Work Phone: [facility] 12-10-2024 01:40-0400 Diastolic blood pressure 62 mm[Hg] Gato Trujillo MD Work Phone: [facility] 12-10-2024 01:40-0400 Heart rate 86 /min Gato Trujillo MD Work Phone: 5(481)765-045034 [place] [address] 12-10-2024 01:40-0400 Respiratory rate 16 /min Gato Trujillo MD Work Phone: 5(747)290-815034 [place] [address] 12-10-2024 01:40-0400 Systolic blood pressure 122 mm[Hg] Gato Turjillo MD Work Phone: 0(154)427-939234 [place] [address] 12-10-2024 01:30-0400 SaO2% (BldA) [Mass fraction] 99 % Gato Trujillo MD Work Phone: 8(701)163-217234 [place] [address] 12-10-2024 01:24-0400 Body height 152.4 cm Gato Trujillo MD Work Phone: 5(254)500-807334 [place] [address] 12-10-2024 01:24-0400 Body mass index (BMI) [Ratio] 30 kg/m2 Gato Trujillo MD Work Phone: 4(700)564-236834 [place] [address] 12-10-2024 01:24-0400 Body weight 69.67 kg Gato Trujillo MD Work Phone: 6(440)678-531734 [place] [address] 11-14-2024 11:40-0400 Body height 152.[address] Unique Rivas MD Work Phone: [facility] 11-14-2024 11:40-0400 Body mass index (BMI) [Ratio] 28 kg/m2 Dr. Unique iRvas MD Work Phone: [facility] 11-14-2024 11:40-0400 Body weight 65.[address] Unique Rivas MD Work Phone: [facility] 11-14-2024 11:40-0400 Diastolic blood pressure 71 mm[Hg] Dr. Unique Rivas MD Work Phone: 1(945)498-178991 [place] [address] 11-14-2024 11:40-0400 Systolic blood pressure 128 mm[Hg] Dr. Unique Rivas MD Work Phone: 6(727)574-150791 [place] [address] 11-02-2024 15:25-0400 Body temperature 98.3 [degF] Dr. Unique Rivas MD Work Phone: 1(708)656-193591 [place] [address] 11-02-2024 15:25-0400 Diastolic blood pressure 72 mm[Hg] Dr. Unique Rivas MD Work Phone: 7(799)961-217591 [place] [address] 11-02-2024 15:25-0400 Heart rate 68 /min Dr. Unique Rivas MD Work Phone: 7(098)079-032491 [place] [address] 11-02-2024 15:25-0400 Respiratory rate 16 /min Dr. Unique Rivas MD Work Phone: 9(452)354-023691 [place] [address] 11-02-2024 15:25-0400 SaO2% (BldA) [Mass fraction] 98 % Dr. Unique Rivas MD Work Phone: 1(222)165-997691 [place] [address] 11-02-2024 15:25-0400 Systolic blood pressure 122 mm[Hg] Dr. Unique Rivas MD Work Phone: 7(921)304-503591 [place] [address] 11-02-2024 09:08-0400 Body height 152.[address] Unique Rivas MD Work Phone: 8(135)079-937091 [place] [address] 11-02-2024 09:08-0400 Body mass index (BMI) [Ratio] 28 kg/m2 Dr. Unique Rivas MD Work Phone: 6(621)873-068791 [place] [address] 11-02-2024 09:08-0400 Body weight 65.[address] Unique Rivas MD Work Phone: 7(006)371-530991 [place] [address] 10-15-2024 08:32-0400 Body height 152.[address] Unique Rivas MD Work Phone: 9(853)075-381691 [place] [address] 10-15-2024 08:32-0400 Body mass index (BMI) [Ratio] 28 kg/m2 Dr. Unique Rivas MD Work Phone: 7(111)959-215191 [place] [address] 10-15-2024 08:32-0400 Body weight 65.[address] Unique Rivas MD Work Phone: 1(532)876-511291 [place] [address] 10-15-2024 08:32-0400 Diastolic blood pressure 70 mm[Hg] Dr. Unique Rivas MD Work Phone: 3(998)062-483091 [place] [address] 10-15-2024 08:32-0400 Systolic blood pressure 116 mm[Hg] Dr. Unique Rivas MD Work Phone: 5(679)422-022491 [place] [address] 09-16-2024 11:33-0400 Body height 152.[address] Unique Rivas MD Work Phone: 3(113)224-541891 [place] [address] 09-16-2024 11:31-0400 Body mass index (BMI) [Ratio] 27.7 kg/m2 Dr. Unique Rivas MD Work Phone: 5(106)479-850191 [place] [address] 09-16-2024 11:31-0400 Body weight 64.[address] Unique Rivas MD Work Phone: 7(410)626-306591 [place] [address] 08-27-2024 10:34-0400 Body mass index (BMI) [Ratio] 27 kg/m2 Dr. Unique Rivas MD Work Phone: 0(090)993-188991 [place] [address] 08-27-2024 10:34-0400 Body weight 62.[address] Unique Rivas MD Work Phone: 7(369)039-965391 [place] [address] 08-27-2024 10:34-0400 Diastolic blood pressure 68 mm[Hg] Dr. Unique Rivas MD Work Phone: 1(509)380-881291 [place] [address] 08-27-2024 10:34-0400 Systolic blood pressure 118 mm[Hg] Dr. Unique Rivas MD Work Phone: 3(040)643-702891 [place] [address] 07-06-2024 11:01-0500 Body mass index (BMI) [Ratio] 25.89 kg/m2 Janelle Weldon APRN.CNP Work Phone: [facility] 07-06-2024 11:01-0500 Body temperature 97.39 [degF] Janelle Fatemeh [employer]MAN Work Phone: [facility] 07-06-2024 11:01-0500 Body weight 63 kg Janelle Fatemeh [employer] Work Phone: [facility] 07-06-2024 11:01-0500 Diastolic blood pressure 78 mm[Hg] Janelle Fatemeh [employer] Work Phone: [facility] 07-06-2024 11:01-0500 Heart rate 81 /min Janelle Fatemeh [employer] Work Phone: [facility] 07-06-2024 11:01-0500 Respiratory rate 20 /min Janelle Fatemeh [employer] Work Phone: [facility] 07-06-2024 11:01-0500 SaO2% (BldA) [Mass fraction] 97 % Janelle Fatemeh [employer] Work Phone: [facility] 07-06-2024 11:01-0500 Systolic blood pressure 114 mm[Hg] Janelle Fatemeh [employer] Work Phone: [facility] 07-02-2024 17:19-0500 Body mass index (BMI) [Ratio] 26.42 kg/m2 Carlos Clutter PA-C Work Phone: [facility] 07-02-2024 17:19-0500 Body temperature 97.81 [degF] Carlos Clutter PA-C Work Phone: [facility] 07-02-2024 17:19-0500 Body weight 64.3 kg Carlos Clutter PA-C Work Phone: [facility] 07-02-2024 17:19-0500 Diastolic blood pressure 74 mm[Hg] Carlos Clutter PA-C Work Phone: [facility] 07-02-2024 17:19-0500 Heart rate 86 /min Carlos Clutter PA-C Work Phone: [facility] 07-02-2024 17:19-0500 Respiratory rate 16 /min Carlos Nyutter PA-C Work Phone: [facility] 07-02-2024 17:19-0500 SaO2% (BldA) [Mass fraction] 99 % Carlos Clutter PA-C Work Phone: [facility] 07-02-2024 17:19-0500 Systolic blood pressure 122 mm[Hg] Carlos Salazar PA-C Work Phone: [facility] 06-18-2024 11:46-0500 Body mass index (BMI) [Ratio] 26.3 kg/m2 Debbi Praisler-Wood [employer] Work Phone: [facility] 06-18-2024 11:46-0500 Body temperature 98.1 [degF] Debbi Praisler-Wood [employer] Work Phone: [facility] 06-18-2024 11:46-0500 Body weight 64 kg Debbi Praisler-Wood [employer] Work Phone: [facility] 06-18-2024 11:46-0500 Diastolic blood pressure 78 mm[Hg] Debbi Praisler-Wood [employer] Work Phone: [facility] 06-18-2024 11:46-0500 Heart rate 82 /min Debbi Praisler-Wood [employer] Work Phone: [facility] 06-18-2024 11:46-0500 Respiratory rate 18 /min Debbi Praisler-Wood [employer] Work Phone: [facility] 06-18-2024 11:46-0500 SaO2% (BldA) [Mass fraction] 98 % Debbi Praisler-Wood [employer] Work Phone: [facility] 06-18-2024 11:46-0500 Systolic blood pressure 110 mm[Hg] Debbi Praisler-Wood [employer] Work Phone: [facility] 05-10-2024 09:07-0500 Body height 156 cm Marisa William [employer] Work Phone: [facility] 05-10-2024 09:07-0500 Body mass index (BMI) [Ratio] 26.73 kg/m2 Marisa William [employer] Work Phone: [facility] 05-10-2024 09:07-0500 Body weight 65.05 kg Marisa William [employer] Work Phone: [facility] 05-10-2024 09:07-0500 Diastolic blood pressure 64 mm[Hg] Marisa William [employer] Work Phone: [facility] 05-10-2024 09:07-0500 Heart rate 88 /min Marisa William [employer] Work Phone: [facility] 05-10-2024 09:07-0500 Respiratory rate 12 /min Marisa William [employer] Work Phone: [facility] 05-10-2024 09:07-0500 SaO2% (BldA) [Mass fraction] 97 % Marisa William [employer] Work Phone: [facility] 05-10-2024 09:07-0500 Systolic blood pressure 120 mm[Hg] Marisa William [employer] Work Phone: [facility] 02-05-2024 10:49-0400 Body mass index (BMI) [Ratio] 26.45 kg/m2 Naina Nichols APRN.[employer]MAN Work Phone: [facility] 02-05-2024 10:49-0400 Body temperature 98.01 [degF] Naina Nichols APRN.[employer]MAN Work Phone: [facility] 02-05-2024 10:49-0400 Body weight 62.9 kg Naina Nichols APRN.[employer] Work Phone: [facility] 02-05-2024 10:49-0400 Diastolic blood pressure 68 mm[Hg] Naina Nichols APRN.[employer] Work Phone: [facility] 02-05-2024 10:49-0400 Heart rate 78 /min Naina Nichols APRN.[employer] Work Phone: [facility] 02-05-2024 10:49-0400 Respiratory rate 21 /min Naina Nichols APRN.[employer] Work Phone: [facility] 02-05-2024 10:49-0400 SaO2% (BldA) [Mass fraction] 97 % Naina Nichols APRN.[employer] Work Phone: [facility] 02-05-2024 10:49-0400 Systolic blood pressure 102 mm[Hg] Naina Nichols APRN.[employer] Work Phone: [facility] 11-28-2023 13:35-0400 Body mass index (BMI) [Ratio] 26.24 kg/m2 Krislyn Aberegg PA Work Phone: [facility] 11-28-2023 13:35-0400 Body temperature 96.91 [degF] Krislyn Aberegg PA Work Phone: [facility] 11-28-2023 13:35-0400 Body weight 62.4 kg Krislyn Aberegg PA Work Phone: [facility] 11-28-2023 13:35-0400 Diastolic blood pressure 64 mm[Hg] Krislyn Aberegg PA Work Phone: [facility] 11-28-2023 13:35-0400 Heart rate 88 /min Krislyn Aberegg PA Work Phone: [facility] 11-28-2023 13:35-0400 Respiratory rate 16 /min Krislyn Aberegg PA Work Phone: [facility] 11-28-2023 13:35-0400 SaO2% (BldA) [Mass fraction] 98 % Krislyn Aberegg PA Work Phone: [facility] 11-28-2023 13:35-0400 Systolic blood pressure 112 mm[Hg] Krislyn Aberegg PA Work Phone: [facility] 11-03-2023 08:01-0400 Body mass index (BMI) [Ratio] 27.17 kg/m2 Beltran Carreon [employer] Work Phone: [facility] 11-03-2023 08:01-0400 Body temperature 97.3 [degF] Beltran Carreon [employer] Work Phone: [facility] 11-03-2023 08:01-0400 Body weight 64.6 kg Beltran Carreon [employer] Work Phone: [facility] 11-03-2023 08:01-0400 Diastolic blood pressure 68 mm[Hg] Beltran Carreon [employer] Work Phone: [facility] 11-03-2023 08:01-0400 Heart rate 82 /min Beltran Carreon [employer] Work Phone: [facility] 11-03-2023 08:01-0400 Respiratory rate 18 /min Beltran Carreon [employer] Work Phone: [facility] 11-03-2023 08:01-0400 SaO2% (BldA) [Mass fraction] 97 % Beltran Carreon [employer] Work Phone: [facility] 11-03-2023 08:01-0400 Systolic blood pressure 116 mm[Hg] Beltran Carreon [employer] Work Phone: [facility] 09-01-2023 13:11-0400 Body height 154.2 cm Marisa William [employer] Work Phone: [facility] 09-01-2023 13:11-0400 Body mass index (BMI) [Ratio] 26.52 kg/m2 Marisa William [employer] Work Phone: [facility] 09-01-2023 13:11-0400 Body weight 63.05 kg Marisa William [employer] Work Phone: [facility] 09-01-2023 13:11-0400 Diastolic blood pressure 62 mm[Hg] Marisa William [employer] Work Phone: [facility] 09-01-2023 13:11-0400 Heart rate 60 /min Marisa William [employer] Work Phone: [facility] 09-01-2023 13:11-0400 Respiratory rate 12 /min Marisa William [employer] Work Phone: [facility] 09-01-2023 13:11-0400 Systolic blood pressure 110 mm[Hg] Marisa William [employer] Work Phone: [facility] 07-04-2023 15:35-0500 Body temperature 98.49 [degF] Naina Nichols APRN.[employer] Work Phone: [facility] 07-04-2023 15:35-0500 Body weight 63.05 kg Naina Nichols APRN.[employer] Work Phone: [facility] 07-04-2023 15:35-0500 Diastolic blood pressure 74 mm[Hg] Naina Nichols APRN.[employer] Work Phone: [facility] 07-04-2023 15:35-0500 Heart rate 92 /min Naina Nichols APRN.[employer] Work Phone: [facility] 07-04-2023 15:35-0500 Respiratory rate 16 /min Naina Nichols APRN.[employer] Work Phone: [facility] 07-04-2023 15:35-0500 SaO2% (BldA) [Mass fraction] 98 % Naina Nichols APRN.[employer] Work Phone: [facility] 07-04-2023 15:35-0500 Systolic blood pressure 124 mm[Hg] Naina Nichols APRN.[employer] Work Phone: [facility] 06-26-2023 16:08-0500 Body temperature 98.01 [degF] May Delaney APRN.[employer] Work Phone: [facility] 06-26-2023 16:08-0500 Body weight 63.96 kg May Delaeny [employer] Work Phone: [facility] 06-26-2023 16:08-0500 Diastolic blood pressure 70 mm[Hg] May Delaney [employer] Work Phone: [facility] 06-26-2023 16:08-0500 Heart rate 102 /min May Delaney [employer] Work Phone: [facility] 06-26-2023 16:08-0500 Respiratory rate 18 /min May Delaney [employer] Work Phone: [facility] 06-26-2023 16:08-0500 SaO2% (BldA) [Mass fraction] 98 % May Delaney [employer] Work Phone: [facility] 06-26-2023 16:08-0500 Systolic blood pressure 122 mm[Hg] May Delaney [employer] Work Phone: [facility] 04-20-2023 12:42-0500 Body temperature 98.2 [degF] Kj Amaya MD Work Phone: [facility] 04-20-2023 12:42-0500 Body weight 62.14 kg Kj Amaya MD Work Phone: [facility] 04-20-2023 12:42-0500 Diastolic blood pressure 73 mm[Hg] Kj Amaya MD Work Phone: [facility] 04-20-2023 12:42-0500 Heart rate 83 /min Kj Amaya MD Work Phone: [facility] 04-20-2023 12:42-0500 Respiratory rate 18 /min Kj Amaya MD Work Phone: [facility] 04-20-2023 12:42-0500 SaO2% (BldA) [Mass fraction] 99 % Kj Amaya MD Work Phone: [facility] 04-20-2023 12:42-0500 Systolic blood pressure 137 mm[Hg] Kj Amaya MD Work Phone: [facility] 03-29-2023 07:12-0500 Body height 155.5 cm Marisa William [employer] Work Phone: [facility] 03-29-2023 07:12-0500 Body weight 61.78 kg Marisa William [employer] Work Phone: [facility] 03-29-2023 07:12-0500 Diastolic blood pressure 62 mm[Hg] Marisa William [employer] Work Phone: [facility] 03-29-2023 07:12-0500 Heart rate 69 /min Marisa William [employer] Work Phone: [facility] 03-29-2023 07:12-0500 Respiratory rate 12 /min Marisa William [employer] Work Phone: [facility] 03-29-2023 07:12-0500 SaO2% (BldA) [Mass fraction] 98 % Marisa William [employer] Work Phone: [facility] 03-29-2023 07:12-0500 Systolic blood pressure 98 mm[Hg] Marisa William [employer] Work Phone: [facility] 02-28-2023 12:02-0400 Body temperature 98.1 [degF] Janie Athy PA-C Work Phone: [facility] 02-28-2023 12:02-0400 Body weight 60.33 kg Janie Athy PA-C Work Phone: [facility] 02-28-2023 12:02-0400 Diastolic blood pressure 68 mm[Hg] Janie Athy PA-C Work Phone: [facility] 02-28-2023 12:02-0400 Heart rate 96 /min Janie Athy PA-C Work Phone: [facility] 02-28-2023 12:02-0400 Respiratory rate 16 /min Janie Athy PA-C Work Phone: [facility] 02-28-2023 12:02-0400 SaO2% (BldA) [Mass fraction] 97 % Janiemari Peñalozamickie PA-C Work Phone: [facility] 02-28-2023 12:02-0400 Systolic blood pressure 122 mm[Hg] Janie Gallo PA-C Work Phone: [facility] 02-21-2023 14:00-0400 Body height 152.[address] Unique Rivas Work Phone: 3(525)[phone] [place] [address] 02-21-2023 13:59-0400 Body mass index (BMI) [Ratio] 26.2 kg/m2 Dr. Unique Rivas Work Phone: 4(278)[phone] [place] [address] 02-21-2023 13:59-0400 Body weight 60.[address] Unique Rivas Work Phone: 8(361)[phone] [place] [address] 02-13-2023 13:26-0400 Body mass index (BMI) [Ratio] 25.8 kg/m2 Dr. Unique Rivas Work Phone: 2(176)[phone] [place] [address] 02-13-2023 13:26-0400 Body weight 60.[address] Unique Rivas Work Phone: 4(116)[phone] [place] [address] 02-13-2023 13:26-0400 Diastolic blood pressure 84 mm[Hg] Dr. Unique Rivas Work Phone: 2(703)[phone] [place] [address] 02-13-2023 13:26-0400 Systolic blood pressure 120 mm[Hg] Dr. Unique Rivas Work Phone: 3(270)[phone] [place] [address] 01-30-2023 08:13-0400 Body height 152.4 cm [facility] 01-30-2023 08:13-0400 Body mass index (BMI) [Ratio] 25.4 kg/m2 [facility] 01-30-2023 08:13-0400 Body temperature 97.6 [degF] [facility] 01-30-2023 08:13-0400 Body weight 59.14 kg [facility] 01-30-2023 08:13-0400 Diastolic blood pressure 78 mm[Hg] [facility] 01-30-2023 08:13-0400 Heart rate 64 /min [facility] 01-30-2023 08:13-0400 Respiratory rate 14 /min [facility] 01-30-2023 08:13-0400 SaO2% (BldA) [Mass fraction] 98 % [facility] 01-30-2023 08:13-0400 Systolic blood pressure 118 mm[Hg] [facility] 01-24-2023 17:08-0400 Body temperature 97.81 [degF] Lizette Kinney [employer] Work Phone: [facility] 01-24-2023 17:08-0400 Body weight 60.15 kg Lizette Kinney [employer] Work Phone: [facility] 01-24-2023 17:08-0400 Diastolic blood pressure 78 mm[Hg] Lizette Kinney [employer] Work Phone: [facility] 01-24-2023 17:08-0400 Heart rate 79 /min Lizette Kinney [employer] Work Phone: [facility] 01-24-2023 17:08-0400 Respiratory rate 18 /min Lizette Kinney [employer] Work Phone: [facility] 01-24-2023 17:08-0400 SaO2% (BldA) [Mass fraction] 99 % Lizette Kinney [employer] Work Phone: [facility] 01-24-2023 17:08-0400 Systolic blood pressure 110 mm[Hg] Lizette Kinney [employer] Work Phone: [facility] 01-19-2023 14:29-0400 Body temperature 97.81 [degF] Kj Amaya MD Work Phone: [facility] 01-19-2023 14:29-0400 Body weight 58.97 kg Kj Amaya MD Work Phone: [facility] 01-19-2023 14:29-0400 Diastolic blood pressure 60 mm[Hg] Kj Amaya MD Work Phone: [facility] 01-19-2023 14:29-0400 Heart rate 104 /min Kj Amaya MD Work Phone: [facility] 01-19-2023 14:29-0400 Respiratory rate 16 /min Kj Amaya MD Work Phone: [facility] 01-19-2023 14:29-0400 SaO2% (BldA) [Mass fraction] 99 % Kj Amaya MD Work Phone: [facility] 01-19-2023 14:29-0400 Systolic blood pressure 124 mm[Hg] Kj Amaya MD Work Phone: [facility] 10-25-2022 14:02-0400 Body temperature 98.1 [degF] Janie Athy PA-C Work Phone: [facility] 10-25-2022 14:02-0400 Body weight 55.88 kg Janie Athy PA-C Work Phone: [facility] 10-25-2022 14:02-0400 Diastolic blood pressure 74 mm[Hg] Janie Athy PA-C Work Phone: [facility] 10-25-2022 14:02-0400 Heart rate 82 /min Janie Athy PA-C Work Phone: [facility] 10-25-2022 14:02-0400 Respiratory rate 16 /min Janie Athy PA-C Work Phone: [facility] 10-25-2022 14:02-0400 SaO2% (BldA) [Mass fraction] 97 % Janie Athy PA-C Work Phone: [facility] 10-25-2022 14:02-0400 Systolic blood pressure 128 mm[Hg] Janie Athy PA-C Work Phone: [facility] 09-12-2022 15:17-0400 Body temperature 98.2 [degF] Lizette Kinney [employer] Work Phone: [facility] 09-12-2022 15:17-0400 Body weight 53.98 kg Lizette Kinney [employer] Work Phone: [facility] 09-12-2022 15:17-0400 Diastolic blood pressure 60 mm[Hg] Lizette Kinney [employer] Work Phone: [facility] 09-12-2022 15:17-0400 Heart rate 102 /min Lizette Kinney [employer] Work Phone: [facility] 09-12-2022 15:17-0400 Respiratory rate 16 /min Lizette Kinney [employer] Work Phone: [facility] 09-12-2022 15:17-0400 SaO2% (BldA) [Mass fraction] 99 % Lizette Kinney [employer] Work Phone: [facility] 09-12-2022 15:17-0400 Systolic blood pressure 102 mm[Hg] Lizette Kinney [employer] Work Phone: [facility] 06-30-2022 14:05-0500 Body temperature 98.1 [degF] Debbi Praisler-Wood [employer] Work Phone: [facility] 06-30-2022 14:05-0500 Body weight 53.43 kg Debbi Praisler-Wood [employer] Work Phone: [facility] 06-30-2022 14:05-0500 Diastolic blood pressure 64 mm[Hg] Debbi Praisler-Wood [employer] Work Phone: [facility] 06-30-2022 14:05-0500 Heart rate 93 /min Debbi Praisler-Wood [employer] Work Phone: [facility] 06-30-2022 14:05-0500 Respiratory rate 18 /min Debbi Praisler-Wood [employer] Work Phone: [facility] 06-30-2022 14:05-0500 SaO2% (BldA) [Mass fraction] 98 % Debbi Arceo APRN.[employer] Work Phone: [facility] 06-30-2022 14:05-0500 Systolic blood pressure 98 mm[Hg] Debbi Arceo APRN.[employer] Work Phone: [facility] 11-04-2021 09:50-0400 Body mass index (BMI) [Percentile] Per age and sex 35.88 % Unique Rivas MD Work Phone: [facility] 11-04-2021 09:50-0400 Body temperature 97.5 [degF] Unique Rivas MD Work Phone: [facility] 11-04-2021 09:50-0400 Body weight 48.22 kg Unique Rivas MD Work Phone: [facility] 11-04-2021 09:50-0400 Diastolic blood pressure 60 mm[Hg] Unique Riavs MD Work Phone: [facility] 11-04-2021 09:50-0400 Heart rate 80 /min Unique Rivas MD Work Phone: [facility] 11-04-2021 09:50-0400 Respiratory rate 18 /min Unique Rivas MD Work Phone: [facility] 11-04-2021 09:50-0400 Systolic blood pressure 110 mm[Hg] Unique Rivas MD Work Phone: [facility] 08-09-2021 10:02-0400 Body mass index (BMI) [Percentile] Per age and sex 40.69 % Kj Amaya MD Work Phone: [facility] 08-09-2021 10:02-0400 Body temperature 98.91 [degF] Kj Amaya MD Work Phone: [facility] 08-09-2021 10:02-0400 Body weight 48.99 kg Kj Amaya MD Work Phone: [facility] 08-09-2021 10:02-0400 Diastolic blood pressure 62 mm[Hg] Kj Amaya MD Work Phone: [facility] 08-09-2021 10:02-0400 Heart rate 108 /min Kj Amaya MD Work Phone: [facility] 08-09-2021 10:02-0400 Respiratory rate 16 /min Kj Amaya MD Work Phone: [facility] 08-09-2021 10:02-0400 SaO2% (BldA) [Mass fraction] 99 % Kj Amaya MD Work Phone: [facility] 08-09-2021 10:02-0400 Systolic blood pressure 106 mm[Hg] Kj Amaya MD Work Phone: [facility] Encounters Encounter Date Encounter Type Care Provider Facility Start: 02-28-2025 ambulatory Sarah Mendoza cility:[facility] Start: 02-20-2025 End: 02-20-2025 ambulatory CHER SCHULTZ [facility] Start: 02-20-2025 End: 02-20-2025 Subsequent hospital visit by physician Cher Schultz MD Work Phone: [facility] Start: 02-11-2025 End: 02-11-2025 ambulatory [facility] Start: 02-10-2025 End: 02-10-2025 Patient encounter procedure Glendy Arvizu CNM -[facility] Work Phone: Start: 02-10-2025 End: 02-10-[address] Unique Rivas MD Work Phone: -[facility] Start: 01-29-2025 End: 01-29-[address] Unique Rivas MD Work Phone: -[facility] Start: 01-29-2025 End: 01-29-2025 Patient encounter procedure Glendy Arvizu CNM -[facility] Start: 01-29-2025 End: 01-29-2025 ambulatory Marisa William Facility:[facility] Start: 01-27-2025 End: 01-27-2025 Patient encounter procedure Negrita Ozona NP-C -[facility] Work Phone: Start: 01-27-2025 End: 01-27-[address] Unique Rivas MD Work Phone: -[facility] Start: 01-14-2025 End: 01-14-2025 ambulatory UNIQUE RAMIREZ [facility] Start: 01-09-2025 End: 01-09-[address] Nereida Chou MD -[facility] Work Phone: Start: 01-09-2025 End: 01-09-[address] Unique Rivas MD Work Phone: -[facility] Start: 01-09-2025 End: 01-09-2025 ambulatory Nereida Chou Facility:[facility] Start: 12-19-2024 End: 12-19-2024 Emergency department patient visit PHYSICIAN MAXWELL [facility] Start: 12-16-2024 End: 12-16-2024 ambulatory [facility] Start: 12-12-2024 End: 12-12-[address] Sarah Ravi DO -[facility] Work Phone: Start: 12-12-2024 End: 12-12-[address] Unique Rivas MD Work Phone: -[facility] Start: 12-10-2024 End: 12-10-2024 ambulatory GATO TRUJILLO [facility] Start: 12-10-2024 End: 12-10-2024 Subsequent hospital visit by physician Gato Trujillo MD Work Phone: [facility] Start: 12-02-2024 End: 12-02-2024 ambulatory [facility] Start: 11-14-2024 End: 11-14-[address] Unique Rivas MD Work Phone: -[facility] Start: 11-14-2024 End: 11-14-2024 Patient encounter procedure Glendy Arvizu CNM -[facility] Work Phone: Start: 11-14-2024 End: 11-14-2024 Patient encounter procedure Glendy Arvizu CNM -[facility] Work Phone: Start: 11-14-2024 End: 11-14-[address] Unique Rivas MD Work Phone: -[facility] Start: 11-14-2024 End: 11-14-2024 ambulatory Glendy Arvizu Facility:[facility] Start: 11-02-2024 End: 11-02-2024 Emergency department patient visit Dr. Unique Rivas MD Work Phone: -Emergency Department Work Phone: Start: 10-15-2024 End: 10-15-2024 Patient encounter procedure Negrita Vital NP-C -[facility] Work Phone: Start: 10-15-2024 End: 10-15-[address] Unique Rivas MD Work Phone: [facility] Work Phone: Start: 10-02-2024 End: 10-02-[address] Unique Rivas MD Work Phone: [facility] Work Phone: Start: 10-02-2024 End: 10-02-[address] Nereiad Chou MD -[facility] Start: 10-02-2024 End: 10-02-2024 ambulatory Nereida Chou Facility:[facility] Start: 09-16-2024 End: 09-16-[address] Unique Rivas MD Work Phone: [facility] Work Phone: Start: 09-16-2024 End: 09-16-[address] Nereida Chou MD -[facility] Work Phone: Start: 09-16-2024 End: 09-16-[address] Sarah Ravi DO -[facility] Work Phone: Start: 09-16-2024 End: 09-16-2024 ambulatory Sarah Ravi Facility:[facility] Start: 09-16-2024 End: 09-16-2024 ambulatory Nereida Chou Facility:[facility] Start: 08-27-2024 End: 08-27-[address] Nereida Chou MD -[facility] Work Phone: Start: 08-27-2024 End: 08-27-2024 ambulatory Nereida Chou Facility:[facility] Start: 07-30-2024 End: 07-30-2024 Telephone encounter Marisa William APRN.[employer] Work Phone: [facility] Comment on above: Orders Start: 07-07-2024 End: 09-06-2024 Follow-up encounter Naina Nichols APRN.[employer] Work Phone: [facility] Start: 07-06-2024 End: 07-06-2024 ambulatory MARISA WILLIAM Facility:[facility] Start: 07-06-2024 End: 07-06-2024 Patient encounter procedure Janelle Weldon APRN.[employer] Work Phone: [facility] Comment on above: Rhinosinusitis (Prim maru Dx) Start: 07-02-2024 End: 07-02-2024 ambulatory MARISA WILLIAM Facility:[facility] Start: 07-02-2024 End: 07-02-2024 Office outpatient visit 25 minutes Carlos Salazar PA-C Work Phone: [facility] Comment on above: Sore throat (Primary Dx); Acute pharyngitis, unspecified etiology Start: 06-19-2024 End: 08-19-2024 Follow-up encounter Stef AGUDELO Work Phone: [facility] Start: 06-18-2024 End: 06-18-2024 ambulatory MARISADARLENE WILLIAM Facility:[facility] Start: 06-18-2024 End: 06-18-2024 Patient encounter procedure Debbi Arceo [employer] Work Phone: [facility] Comment on above: Flu-like symptoms (P rimary Dx) Start: 05-10-2024 End: 05-10-2024 ambulatory MARISA WILLIAM Facility:[facility] Start: 05-10-2024 Encounter for genera l adult medical examination without abnormal findings MARISA WILLIAM [facility] Start: 05-10-2024 End: 05-10-2024 Patient encounter procedure Marisa Angel William [employer] Work Phone: [facility] Comment on above: Wellness examination (Primary Dx); Family history of hypothyroidism; Right leg pain Start: 05-10-2024 End: 05-10-2024 Patient encounter status Marisa Angel William [employer] Work Phone: [facility] Work Phone: Start: 04-23-2024 End: 04-23-2024 ambulatory Raul AGUDELO Facility:[facility] Start: 02-05-2024 End: 02-05-2024 ambulatory MARISA ANGEL WILLIAM Facility:[facility] Start: 02-05-2024 End: 02-05-2024 Patient encounter procedure Naina Nichols [employer] Work Phone: [facility] Comment on above: URI, acute (Primary Dx) Start: 11-28-2023 End: 11-28-2023 ambulatory MARISADARLENE WILLIAM Facility:[facility] Start: 11-28-2023 End: 11-28-2023 Patient encounter procedure Stef AGUDELO Work Phone: [facility] Comment on above: Headache, unspecifie d headache type (Primary Dx) Start: 11-03-2023 End: 11-03-2023 ambulatory MARISA WILLIAM Facility:[facility] Start: 11-03-2023 End: 11-03-2023 Office outpatient visit 15 minutes Beltran Carreon APRN.[employer] Work Phone: [facility] Comment on above: Pain of right lower extremity (Primary Dx) Start: 09-01-2023 End: 09-01-2023 ambulatory MARISA WILLIAM Facility:[facility] Start: 09-01-2023 End: 09-01-2023 Patient encounter procedure Marisa William APRN.[employer] Work Phone: [facility] Comment on above: Wellness examination (Primary Dx) Start: 09-01-2023 End: 09-01-2023 Patient encounter status Marisa William APRN.[employer] Work Phone: [facility] Work Phone: Start: 07-04-2023 End: 07-04-2023 Patient encounter procedure Naina Nichols APRN.[employer] Work Phone: [facility] Comment on above: Acute otitis media, left (Primary Dx); Sore throat Start: 06-26-2023 End: 06-26-2023 Patient encounter procedure May Delaney APRN.[employer] Work Phone: [facility] Comment on above: Exposure to SARS-ass ociated coronavirus (Primary Dx) Start: 04-20-2023 End: 04-20-2023 Patient encounter procedure Kj Amaya MD Work Phone: [facility] Comment on above: Acute hip pain, righ t (Primary Dx) Start: 03-29-2023 End: 03-29-2023 Patient encounter procedure Marisa William APRN.[employer] Work Phone: [facility] Comment on above: Wellness examination (Primary Dx) Start: 03-29-2023 End: 03-29-2023 Patient encounter status Marisa William APRN.[employer] Work Phone: [facility] Work Phone: Start: 02-28-2023 End: 02-28-2023 Patient encounter procedure Janie Holder PA-C Work Phone: [facility] Comment on above: Nausea (Primary Dx) Start: 02-21-2023 End: 02-21-[address] Unique Rivas Work Phone: [facility] Work Phone: Start: 02-21-2023 End: 02-21-[address] Unique Rivas Work Phone: [facility]-Laboratory, Specimen Work Phone: Start: 02-21-2023 End: 02-21-[address] Unique Rivas Work Phone: [facility] Work Phone: Start: 02-13-2023 End: 02-13-[address] Unique Rivas Work Phone: [facility] Work Phone: Start: 01-30-2023 End: 01-30-2023 Emergency department patient visit [facility] Work Phone: Start: 01-24-2023 End: 01-24-2023 Patient encounter procedure Lizette Kinney APRN.CNP Work Phone: [facility] Comment on above: Nausea vomiting and diarrhea (Primary Dx) Start: 01-19-2023 End: 01-19-2023 Patient encounter procedure Kj Amaya MD Work Phone: [facility] Comment on above: Costochondritis (Ale olamide Dx) Start: 10-25-2022 End: 10-25-2022 Patient encounter procedure Janie RIVASC Work Phone: [facility] Comment on above: Fluid level behind t ympanic membrane of right ear (Primary Dx); Headache, unspecified headache type Start: 09-12-2022 End: 09-12-2022 Patient encounter procedure Lizette Kinney [employer] Work Phone: [facility] Comment on above: URI, acute (Primary Dx); Pharyngitis, unspecified etiology Start: 06-30-2022 End: 06-30-2022 Patient encounter procedure Debbimonster Arceo [employer] Work Phone: [facility] Comment on above: Encounter for screen ing laboratory testing for COVID-19 virus (Primary Dx) Start: 06-30-2022 Telephone encounter May harris MD Work Phone: [facility] Comment on above: [facility] COVID Outr each Start: 02-23-2022 Refill Unique Liu ed, MD Work Phone: [facility] Comment on above: Refill Request Start: 01-25-2022 Refill Unique Liu ed, MD Work Phone: [facility] Comment on above: Refill Request Start: 01-24-2022 End: 01-24-2022 Patient encounter procedure Nurse Rosales [facility] Comment on above: Encounter for immuni zation (Primary Dx) Refill Request Start: 01-22-2022 Refill Unique Liu ed, MD Work Phone: [facility] Comment on above: Refill Request Start: 01-21-2022 End: 01-21-2022 Patient encounter procedure Nurse Rosales [facility] Comment on above: Encounter for PPD sk in test reading (Primary Dx) Start: 01-06-2022 End: 01-06-2022 Patient encounter procedure Nurse Rosales Watson [facility] Comment on above: Encounter for PPD sk in test reading (Primary Dx); Screening-pulmonary TB Start: 12-27-2021 End: 12-27-2021 Patient encounter procedure Unique Rivas MD Work Phone: [facility] Comment on above: Encounter for immuni zation (Primary Dx) Start: 12-23-2021 Refill Tessa Martinez PA-C Work Phone: [facility] Comment on above: Refill Request Start: 12-01-2021 Telephone encounter Angie Maya RN [facility] Comment on above: [facility] COVID Outr each Start: 11-04-2021 End: 11-04-2021 Patient encounter procedure Unique Rivas MD Work Phone: [facility] Comment on above: Attention deficit hy peractivity disorder (ADHD), predominantly inattentive type (Primary Dx); Anxiety Start: 10-22-2021 Refill Unique Liu ed, MD Work Phone: [facility] Comment on above: Refill Request Start: 09-20-2021 Refill Unique Liu ed, MD Work Phone: [facility] Comment on above: Refill Request Start: 09-18-2021 Refill Unique Liu ed, MD Work Phone: [facility] Comment on above: Refill Request Start: 08-09-2021 End: 08-09-2021 Patient encounter procedure Kj Amaya MD Work Phone: [facility] Comment on above: Toothache (Primary D x) Procedures Date Procedure Procedure Detail Performing Clinician Start: 01-29-2025 Serologic test for syphilis Dr. Unique Rivas MD Work Phone: Start: 01-09-2025 Measurement of pH in vaginal fluid specimen using nitrazine yellow for detection of rupture of amniotic membrane Dr. Unique Rivas MD Work Phone: Comment on above: Amniotic fluid not p resent indicates No Rupture of FetalMembranes at time of specimen collection. Start: 11-02-2024 Urnls dip stick/tabl et reagent [...] HCV Quant by PCR testing - HCVPCR #[id number] Non Reactive: < 0.8 Equivocal: >/= 0.8 to < 1.0 Reactive: >/= 1.0The CDC requires that a reactive/equivocal HCV antibody result be sent out for confirmation. HCV Quant by PCR testing. Start: 10-02-[address] Unique Rivas MD Work Phone: Comment on above: Antibody Result: Int erpretationNon-Reactive: Non- ImmuneReactive: ImmuneThe following results were obtained with the [employer] Rubella IgG assay. Results from assays of [...] no HPV testing was performed.Performed at: [address] [id number] Director: Birdie Tobin MD, Phone: [phone] Start: 09-16-[address] Elma Rivas MD Work Phone: Start: 07-02-2024 STREP A MOLECULAR (POC) Lizette Kinney [employer] Work Phone: Start: 07-04-2023 STREP A MOLECULAR (POC) [facility] Provider Start: 02-21-[address] Unique Rivas Work Phone: Start: 02-21-2023 Chlamydia trachomatis (PCR) Dr. Unique Rivas Work Phone: Start: 09-12-2022 STREP A MOLECULAR (POC) Lizette Kinney APRN.[employer] Work Phone: Start: 01-24-2022 INFLUENZA VACCINE QUADRIVALENT [...] RSV VACCINE (1 - 1-dose 75+ series) [facility] Start: 05-10-2025 Covid-19 Vaccine ( season) Covid-19 Vaccine ( season) [facility] Comment on above: Postponed from 01/06 (Declined at this time) Start: 01-29-2025 End: 01-29-2025 Patient encounter procedure Departed Clinical -Lab [facility] Start: 01-06-2025 COVID-19 VACCINE ( season) COVID-19 VACCINE ( season) [facility] Start: 01-06-2025 Influenza vaccination INFLUENZA VACC INE (#1) [facility] Start: 11-04-2024 Influenza vaccination Influenza Vacc ine (#1) [facility] Comment on above: Postponed from 01/06 (Declined at this time) Start: 11-02-2024 [facility] Start: 09-16-2024 Liquid based cervica l cytology screening [facility] Start: 07-02-2024 End: 07-02-2024 ambulatory 07/02/2024 12:00 PM EST OT/PT/Speech Visit [facility] [address] [place] [address] Lizette Andrews, PT My right leg [facility] Comment on above: My right leg Start: 05-10-2024 End: 08-09-2024 CBC W Auto Differential panel - Blood COMPLETE BLOOD COUNT AND DIFFERENTIAL Lab Routine Wellness examination Expected: 05/10/2024, Expires: 08/09/2024 [facility] Comment on above: Expected: 05/10/2024 , Expires: 08/09/2024 Start: 05-10-2024 End: 08-09-2024 Comprehensive metabolic 2000 panel - Serum or Plasma COMPREHENSIVE METABOLIC PANEL Lab Routine Wellness examination Expected: 05/10/2024, Expires: 08/09/2024 [facility] Work Phone: Comment on above: Expected: 05/10/2024 , Expires: 08/09/2024 Start: 05-10-2024 End: 08-09-2024 Hemoglobin A1c in Blood HEMOGLOBIN A1C Lab Routine Wellness examination Expected: 05/10/2024, Expires: 08/09/2024 [facility] Comment on above: Expected: 05/10/2024 , Expires: 08/09/2024 Start: 05-10-2024 End: 08-09-2024 Lipid 1996 panel - Serum or Plasma LIPID PANEL BASIC Lab Routine Wellness examination Expected: 05/10/2024, Expires: 08/09/2024 [facility] Comment on above: Expected: 05/10/2024 , Expires: 08/09/2024 Start: 05-10-2024 End: 08-09-2024 Thyrotropin [Units/volume] in Serum or Plasma THYROID STIMULATING HORMONE Lab Routine Wellness examination Family history of hypothyroidism Expected: 05/10/2024, Expires: 08/09/2024 [facility] Comment on above: Expected: 05/10/2024 , Expires: 08/09/2024 Start: 04-22-2024 Tetanus vaccination TETANUS [facility] Start: 04-22-2024 Urine microalbumin profile [facility] Start: 03-29-2024 Covid-19 Vaccine (#1) Covid-19 Vacci ne (#1) [facility] Comment on above: Postponed from 07/11 (Declined at this time) Start: 03-29-2024 Covid-19 Vaccine ( season) Covid-19 Vaccine () [facility] Comment on above: Postponed from 01/06 (Declined at this time) Start: 01-07-2024 Covid-19 Vaccine () Covid-19 Vaccine () [facility] Start: 01-07-2024 Influenza vaccination C [facility] Start: 11-16-2023 End: 11-16-2023 Patient encounter procedure 11/16/2023 8:00 AM EDT Office Visit [facility] [address], [place] [id number] Marisa William APRN.[employer] [address] [place] [address] Follow up from Urgent Care - Thigh pain [facility] Comment on above: Follow up from [facility] - Thigh pain Start: 11-05-2023 Influenza vaccination Influenza Vacc ine (#1) [facility] Comment on above: Postponed from 01/06 (Declined at this time) Start: 05-08-2023 Behavioral Health Screening Behavioral Health Screening [facility] Start: 05-08-2023 Depression Assessment Depression Ass essment [facility] Start: 03-29-2023 End: 06-28-2023 CBC W Auto Differential panel - Blood CBC + DIFF Lab Routine Wellness examination Expected: 03/29/2023, Expires: 06/28/2023 [facility] Work Phone: Comment on above: Expected: 03/29/2023 , Expires: 06/28/2023 Start: 03-29-2023 End: 06-28-2023 Comprehensive metabolic 2000 panel - Serum or Plasma COMP METABOLIC PANEL Lab Routine Wellness examination Expected: 03/29/2023, Expires: 06/28/2023 [facility] Work Phone: Comment on above: Expected: 03/29/2023 , Expires: 06/28/2023 Start: 03-29-2023 End: 06-28-2023 Lipid 1996 panel - Serum or Plasma LIPID PANEL BASIC Lab Routine Wellness examination Expected: 03/29/2023, Expires: 06/28/2023 [facility] Work Phone: Comment on above: Expected: 03/29/2023 , Expires: 06/28/2023 Start: 2023 Pap Testing Pap Testing [facility] Start: 2023 Screening for malign ant neoplasm of cervix [facility] Start: 01-06-2023 Influenza vaccination Influenza Vacc ine (#1) [facility] Start: 12-27-2022 Adult depression screening assessment DEPRESSION SCREENING [facility] Start: 11-04-2022 Adult depression screening assessment DEPRESSION SCREENING [facility] Start: 09-12-2022 End: 09-26-2022 Influenza virus A and B RNA and SARS-CoV-2 (COVID-19) N gene panel - Respiratory specimen by VISHNU with probe detection [facility] Work Phone: Comment on above: Expected: 09/12/2022 , Expires: 09/26/2022 Start: 07-09-2022 Adult depression screening assessment DEPRESSION SCREENING [facility] Start: 05-08-2022 DEPRESSION ASSESSMENT DEPRESSION ASS ESSMENT [facility] Start: 01-06-2022 Influenza vaccination INFLUENZA (#1) [facility] Start: 12-01-2021 End: 12-15-2021 Influenza virus A and B RNA and SARS-CoV-2 (COVID-19) N gene panel - Respiratory specimen by VISHNU with probe detection [facility] COVID + FLU A/B, ROUTINE Microbiology Routine Suspected 2019 novel coronavirus infection Expected: 12/01/2021, Expires: 12/15/2021 [facility] Work Phone: Comment on above: Expected: 12/01/2021 , Expires: 12/15/2021 Start: 05-08-2021 DEPRESSION ASSESSMENT DEPRESSION ASS ESSMENT [facility] Start: 01-12-2020 CHLAMYDIA SCREENING (18-24) CHLAMYDIA SCREENING (18-24) [facility] Start: 01-12-2020 Depression Screening Depression Scre ening [facility] Start: 01-12-2020 GC (GONORRHEA) SCREE DAPHNE (18-24) GC (GONORRHEA) SCREENING (18-24) [facility] Start: 01-12-2020 HEPATITIS C SCREENING HEPATITIS C SC REENING [facility] Start: 01-12-2020 HIV SCREENING HIV SCREENING [facility] Start: 01-12-2020 Screening for Chlamy dwayne trachomatis Chlamydia Screening () [facility] Start: 2018 Meningococcal B Vacc ine (1 of 2 - Standard) Meningococcal B Vaccine (1 of 2 - Standard) [facility] Start: 2018 Meningococcal B Vacc ine: Consider Based On Risk (1 of 2 - Patient Seeks Protection) Meningococcal B Vaccine: Consider Based On Risk (1 of 2 - Patient Seeks Protection) [facility] Start: 2018 Screening for Chlamy dwayne trachomatis CHLAMYDIA SCREEN [facility] Start: 2017 HIV screening HIV SCREENING DISCUSSION [facility] Start: 01-12-2016 PEDS TO ADULT TRANSI TION ANNUAL ASSESSMENT PEDS TO ADULT TRANSITION ANNUAL ASSESSMENT [facility] Start: 01-12-2012 MENINGOCOCCAL B: Con multimedia artist based on risk (1 of 2 - Risk Bexsero 2-dose series) MENINGOCOCCAL B: Consider based on risk (1 of 2 - Risk Bexsero 2-dose series) [facility] Start: 2007 COVID-19 VACCINE (#1) COVID-19 VACCI NE (#1) [facility] Start: 2007 COVID-19 VACCINE (1) COVID-19 VACCIN E (1) [facility] Start: 2002 COVID-19 VACCINE (#1) COVID-19 VACCI NE (#1) [facility] Start: 2002 Hepatitis C screening HEPATITI S C VIRUS SCREENING [facility] Start: 2002 Screening for Chlamy dwayne trachomatis GONORRHEA SCREEN [facility] CBC W Auto Different ial panel - Blood [facility] CBC W Auto Different ial panel - Blood [facility] Chlamydia deoxyribonucleic acid detection [facility] COVID & INFLUENZA A/ B & RSV NAAT, ROUTINE COVID & INFLUENZA A/B & RSV NAAT, ROUTINE Microbiology Routine Exposure to SARS-associated coronavirus 06/26/2023 4:20 PM EST [facility] Work Phone: COVID & INFLUENZA A/ B & RSV PCR, ROUTINE COVID & INFLUENZA A/B & RSV PCR, ROUTINE Microbiology Routine URI, acute 02/05/2024 11:27 AM EDT [facility] Work Phone: COVID & INFLUENZA A/ B & RSV PCR, ROUTINE COVID & INFLUENZA A/B & RSV PCR, ROUTINE Microbiology Routine Flu-like symptoms 06/18/2024 11:59 AM EST [facility] Work Phone: COVID & INFLUENZA A/ B & RSV PCR, ROUTINE COVID & INFLUENZA A/B & RSV PCR, ROUTINE Microbiology Routine Rhinosinusitis Ordered: 07/06/2024 [facility] Work Phone: Comment on above: Ordered: 07/06/2024 Hepatitis C antibody measurement [facility] Influenza virus A an d B RNA and SARS-CoV-2 (COVID-19) N gene panel - Respiratory specimen by VISHNU with probe detection [facility] COVID + FLU A/B, ROUTINE Microbiology Routine Encounter for screening laboratory testing for COVID-19 virus 06/30/2022 3:27 PM EST [facility] Work Phone: Influenza virus A an d B RNA and SARS-CoV-2 (COVID-19) N gene panel - Respiratory specimen by VISHNU with probe detection COVID & INFLUENZA A/B NAAT, ROUTINE Microbiology Routine Nausea 02/28/2023 12:49 PM EDT [facility] Work Phone: Measurement of gluco se 2 hours after glucose challenge for glucose tolerance test [facility] Patient Education [facility] Work Phone: Patient referral [facility] Work Phone: PPD (TB INTRADERMAL [id number]) B/O PPD (TB INTRADERMAL [id number]) B/O Procedures Routine Screening-pulmonary TB Ordered: 07/30/2024 [facility] Work Phone: Comment on above: Ordered: 07/30/2024 Rubella IgG measurement [facility] Serologic test for syphilis [facility] for [facility] Immunizations Immunization Date Immunization Notes Care Provider Tate mannsavage 02-10-2025 tetanus toxoid, redu sofia diphtheria toxoid, and acellular pertussis vaccine, adsorbed Dr. Unique Rivas MD Work Phone: [facility] 01-24-2022 influenza, injectabl e, quadrivalent, contains preservative Nurse [facility] Work Phone: 01-24-2022 influenza virus vacc ine, unspecified formulation Kj Amaya MD Work Phone: [facility] 01-18-2022 tuberculin skin test ; purified protein derivative solution, intradermal Naina Aldair [employer] Work Phone: [facility] 01-03-2022 tuberculin skin test ; purified protein derivative solution, intradermal Naina Aldair [employer] Work Phone: [facility] 12-27-2021 hepatitis B vaccine, pediatric or pediatric/adolescent dosage Unique Rivas MD Work Phone: [facility] 11-10-2021 varicella virus vaccine Johny Martinez PA-C Work Phone: [facility] 01-26-2021 influenza, injectabl e, quadrivalent, contains preservative Kj Amaya MD Work Phone: [facility] 03-15-2018 influenza, injectabl e, quadrivalent, contains preservative Kj Amaya MD Work Phone: [facility] 03-15-2018 meningococcal polysaccharide (groups A, C, Y and W-135) diphtheria toxoid conjugate vaccine (MCV4P) Kj Amaya MD Work Phone: [facility] 06-12-2017 influenza, injectabl e, quadrivalent, contains preservative Kj Amaya MD Work Phone: [facility] 04-14-2016 Human Papillomavirus 9-valent vaccine Kj Amaya MD Work Phone: [facility] 04-14-2016 influenza, injectabl e, quadrivalent, contains preservative Kj Amaya MD Work Phone: [facility] 04-09-2015 human papilloma viru s vaccine, quadrivalent Kj Amaya MD Work Phone: [facility] 04-09-2015 influenza, injectabl e, quadrivalent, contains preservative Kj Amaya MD Work Phone: [facility] 04-22-2014 human papilloma viru s vaccine, quadrivalent Kj Amaya MD Work Phone: [facility] 04-22-2014 influenza, live, intranasal, quadrivalent Kj Amaya MD Work Phone: [facility] 04-22-2014 meningococcal polysaccharide (groups A, C, Y and W-135) diphtheria toxoid conjugate vaccine (MCV4P) Kj Amaya MD Work Phone: [facility] 04-22-2014 tetanus toxoid, redu sofia diphtheria toxoid, and acellular pertussis vaccine, adsorbed Kj Amaya MD Work Phone: [facility] 02-25-2011 influenza virus vacc ine, live, attenuated, for intranasal use Kj Amaya MD Work Phone: [facility] 02-16-2010 influenza virus vacc ine, live, attenuated, for intranasal use Kj Amaya MD Work Phone: [facility] Work Phone: 05-29-2007 diphtheria, tetanus toxoids and acellular pertussis vaccine Kj Amaya MD Work Phone: [facility] Work Phone: 05-29-2007 measles, mumps and rubella virus vaccine Kj Amaya MD Work Phone: [facility] Work Phone: 05-29-2007 poliovirus vaccine, inactivated Kj Amaya MD Work Phone: [facility] Work Phone: 05-29-2007 varicella virus vaccine Doug Amaya MD Work Phone: [facility] Work Phone: 11-24-2005 pneumococcal conjuga te vaccine, 7 valent Kj Amaya MD Work Phone: [facility] Work Phone: 08-18-2004 pneumococcal conjuga te vaccine, 7 valent Kj Amaya MD Work Phone: [facility] Work Phone: 08-21-2003 diphtheria, tetanus toxoids and acellular pertussis vaccine Kj Amaya MD Work Phone: [facility] Work Phone: 08-21-2003 haemophilus influenz ae type b vaccine, HbOC conjugate Kj Amaya MD Work Phone: [facility] Work Phone: 01-15-2003 measles, mumps and rubella virus vaccine Kj Amaya MD Work Phone: [facility] Work Phone: 01-15-2003 varicella virus vaccine Doug Amaya MD Work Phone: [facility] Work Phone: 2002 hepatitis B vaccine, pediatric or pediatric/adolescent dosage Kj Amaya MD Work Phone: [facility] Work Phone: 2002 diphtheria, tetanus toxoids and acellular pertussis vaccine Kj Amaya MD Work Phone: [facility] Work Phone: 2002 haemophilus influenz ae type b vaccine, HbOC conjugate Kj Amaya MD Work Phone: [facility] Work Phone: 2002 poliovirus vaccine, inactivated Kj Amaya MD Work Phone: [facility] Work Phone: 2002 diphtheria, tetanus toxoids and acellular pertussis vaccine Kj Amaya MD Work Phone: [facility] Work Phone: 2002 haemophilus influenz ae type b vaccine, HbOC conjugate Kj Amaya MD Work Phone: [facility] Work Phone: 2002 pneumococcal conjuga te vaccine, 7 valent Kj Amaya MD Work Phone: [facility] Work Phone: 2002 poliovirus vaccine, inactivated Kj Amaya MD Work Phone: [facility] Work Phone: 2002 diphtheria, tetanus toxoids and acellular pertussis vaccine Kj Amaya MD Work Phone: [facility] Work Phone: 2002 haemophilus influenz ae type b vaccine, HbOC conjugate Kj Amaya MD Work Phone: [facility] Work Phone: 2002 pneumococcal conjuga te vaccine, 7 valent Kj Amaya MD Work Phone: [facility] Work Phone: 2002 poliovirus vaccine, inactivated Kj Amaya MD Work Phone: [facility] Work Phone: 2002 hepatitis B vaccine, pediatric or pediatric/adolescent dosage Kj Amaya MD Work Phone: [facility] Work Phone: 2002 hepatitis B vaccine, pediatric or pediatric/adolescent dosage Kj Amaya MD Work Phone: [facility] Work Phone: Payers Date Payer Category Payer Medicaid (Managed Care) [facility] [id number] 2024 Self-pay [id number] 2022 Medicaid [id number] 2017 Medicaid [employer] [id number] 2017-Present [phone] [address] [place] [address] Medicaid [id number] 2017 Medicaid [id number] 2002 Unknown [id number]. 902 2002 Unknown [id number]. 479 2002 Unknown [id number]. 479 2002 Unknown [id number]. 479 2002 Unknown [id number] [id number]. 983 Unknown [id number]. 462 Unknown [id number]. 462 Unknown [id number] 2.16.840.1.793092.3.579.2. 462 Unknown [id number] 2.16.840.1.686680.3.579.2. 462 Unknown [id number] 2.16.840.1.060310.3.579.2. 462 Unknown [id number] 2.16.840.1.411335.3.579.2. 462 Unknown [id number] 2.16.840.1.927362.3.579.2. 462 Unknown [id number] 2.16.840.1.643483.3.579.2. 462 Unknown [id number] 2.16.840.1.687084.3.579.2. 462 Unknown [id number] 2.16.840.1.385812.3.579.2. 462 Unknown [id number] 2.16840.1.716354.3.579.2. 462 Unknown [id number] 2.16.840.1.304952.3.579.2. 462 Unknown [id number] 2.16.840.1.594934.3.579.2. 462 Unknown [id number] 2.16.840.1.418212.3.579.2. 462 Unknown [id number] 2.16.840.1.877981.3.579.2. 462 Unknown [id number]. 462 Unknown [id number]. 462 Social History Date Type Detail Facility Start: 02-25-2011 End: 12-10-2024 Tobacco smoking status NHIS Never smoked tobacco [facility] Work Phone: Start: 08-09-2021 End: 07-06-2024 Alcohol intake Current non-drinker of alcohol (finding) [facility] Start: 11-02-2010 End: 06-30-2022 Tobacco Comment Both parents inside and outside [facility] Start: 2002 Sex Assigned At Not on file C [facility] Start: 07-30-2021 End: 12-30-2021 Exposure to SARS-CoV-2 (event) Not sure [facility] Work Phone: Start: 11-04-2021 History SDOH Alcohol Frequency 1 [facility] Start: 11-04-2021 History SDOH Alcohol Std Drinks 98 [facility] Start: 11-04-2021 History SDOH Social Connections Phone 5 [facility] Start: 11-04-2021 History SDOH Social Connections Get Together 3 [facility] Start: 11-04-2021 History SDOH Social Connections Membership 2 [facility] Start: 11-04-2021 History SDOH Social Connections Living 8 [facility] Start: 11-04-2021 History SDOH Physica l Activity MPS 0 [facility] Start: 11-04-2021 History SDOH Financial 4 [facility] History of tobacco use Passive smoker [facility] Start: 02-25-2011 End: 12-10-2024 Tobacco use and exposure Smokeless tobacco non-user [facility] Start: 11-04-2021 End: 02-20-2025 History of Social function [facility] Start: 11-04-2021 End: 02-20-2025 Social connection and isolation panel [facility] Do you belong to any clubs or organizations such as episcopalian groups, unions, fraternal or athletic groups, or school groups? No [facility] Are you now , , , , never or living with a partner? Living with partner [facility] How often to you hav e a drink containing alcohol? Never [facility] How many standard dr inks containing alcohol do you have on a typical day? Patient refused [facility] How hard is it for y ou to pay for the very basics like food, housing, medical care, and heating Not very hard [facility] Do you feel stress - tense, restless, nervous, or anxious, or unable to sleep at night because your mind is troubled all the time - these days [OSQ] Not at all [facility] (I/We) worried lambert er (my/our) food would run out before (I/we) got money to buy more. Sometimes true [facility] Start: 01-30-2023 End: 02-13-2023 Tobacco smoking status VTIS Unknown if ever smoked [facility] Start: 09-09-2020 Non-smoker [facility] Start: 2002 Sex Assigned At Female W [facility] Are you now , , , , never or living with a partner? Refused [facility] How often to you hav e a drink containing alcohol? Monthly or less [facility] How many standard dr inks containing alcohol do you have on a typical day? 1 or 2 [facility] (I/We) worried wheth er (my/our) food would run out before (I/we) got money to buy more. Never true [facility] Start: 08-27-2024 End: 12-12-2024 Tobacco smoking status NHIS Ex-smoker (finding) [facility] Start: 12-10-2024 End: 02-20-2025 Alcoholic beverage intake Lifetime non-drinker (finding) [facility] Start: 07-31-2024 [facility] Start: 12-10-2024 Sex Female (finding) [facility] Medical Equipment Procedure Code Equipment Code [...] serious difficulty hearing No 10/27/2014 9:31 AM EDT Megha Arvizu Cma [facility] 10-27-2014 Are you blind, or do you have serious difficulty seeing, even when wearing glasses No 10/27/2014 9:31 AM EDT Megha Arvizu Cma [facility] 10-27-2014 Do you have serious difficulty walking or climbing stairs No 10/27/2014 9:31 AM EDT Megha Arvizu Cma [facility] 10-27-2014 Do you have difficul ty dressing or bathing No 10/27/2014 9:31 AM EDT Megha Arvizu Cma [facility] Mental Status Date Assessment Result Facility 01-30-2023 Cognitive function Level Of Cons ciousness Awake;Alert;Appropriate [facility] Work Phone: 10-27-2014 Because of a physica l, mental, or emotional condition, do you have serious difficulty concentrating, remembering, or making decisions No 10/27/2014 9:31 AM EDT Megha Arvizu Cma [facility] Clinical Notes 04-01-2013 to 02-20-2025 Cher Schultz MD - 02/20/2025 6:19 PM EDTNursing Notes - Bebe Rivas RN - 02/20/2025 6:18 PM EDTNursing Notes - Bebe Rivas RN - 02/20/2025 6:18 PM EDTDischarge InstructionsAttachments Note Date & Type Note Facility 02-20-2025 History of Presen t illness Narrative 25yo presented at 31+ weeks gestation to L&D triage and was evaluated by RN/staff. I reviewed the NST - it was reactive. Patient was stable and was discharged to home with instruction to follow up with her primary OB. She will call them in the AM to inform them of this visit and arrange follow up. documented in this encounter [facility] 02-20-2025 Nurse Note Discharge instructions given to patient. . Follow up care encouraged and instructed to call office tomorrow if pt needs to be seen sooner than scheduled.. Patient verbalized understanding. All personal belongings given to patient. Denied any further needs. Ambulated with steady gait out of OB unit with pt father. [facility] 02-20-2025 Miscellaneous Notes Formattin g of this note might be different from the original. Discharge instructions given to patient. . Follow up care encouraged and instructed to call office tomorrow if pt needs to be seen sooner than scheduled.. Patient verbalized understanding. All personal belongings given to patient. Denied any further needs. Ambulated with steady gait out of OB unit with pt father. Dr. Schultz called at this time to explain pt clinical condition, pt complaints, strip reading reactive. Pt appropriate for discharge and instructed to follow up with provider and notify of recent exam. . Pt states decreased movement since last night. "She hasn't completely stopped moving, just less than normal". Pt denies vaginal bleeding, leaking fluid, dysuria, cramping, n/v. Pt receives care at [facility] with Edd Vasquez. documented in this encounter [facility] 02-20-2025 Hospital Discharg e instructions Bebe Rivas RN - 02/20/2025 6:09 PM EDT Please call your [facility] office and notify them you were seen here today. They might want you to be seen sooner than your next scheduled appointment. Continue to drink plenty of fluids and rest. The following attachments cannot be sent through Care Everywhere. Movement Count ([facility]) (Bhutanese)documented in this encounter [facility] 02-20-[address] Schultz called at this time to explain pt clinical condition, pt complaints, strip reading reactive. Pt appropriate for discharge and instructed to follow up with provider and notify of recent exam. [facility] 02-20-2025 Nurse Note . Pt states decreased movement since last night. "She hasn't completely stopped moving, just less than normal". Pt denies vaginal bleeding, leaking fluid, dysuria, cramping, n/v. Pt receives care at [facility] with Edd Vasquez. [facility] 02-10-2025 Progress note [facility] 02-10-2025 Progress note Note Date/Time February 10, 2025 2:32pm [facility] [address] [place] [address], [address] [place] [address] OFFICE VISIT Date of Service: 02/10/25 MR#: [id number] Acct: [id number] Name: NAN MEYERS Rep #: [id number] : 2000 Provider: NURYS Arvizu Age/Sex: 25/F Location: [facility] [place] Status: Signed with Addenda ADDENDUM by Meagan Parish on 02/10/25 at 1436 Office Procedure Documentation entered by Meagan Parish 02/10/25 14:36: Immunizations Adacel(Tdap Adolesn/Adult)(PF) 2 Lf-(2.5-5-3-5)-5 Lf/0.5 mL IM syringe Performing Provider: Glendy Arvizu CNM Performing Location: [facility] Administered by: Meagan Parish on 02/10/25 14:35 Dose Route Admin Location Dispensed Lot Number Expiration Date Pack age NDC NDC Welder Gas Automatic 0.5 mL IM Left Deltoid 0.5 mL [id number] 01/04/27 53450-638-31 [id number] [employer]- [employer] VIS Given Date VIS Provided VIS Publication Date 02/10/25 Single Vaccine 24 Eligibility Eligibility Date Funding Source Not Applicable Date _ cc: ~* Signed Intake Vital Signs 01/09/25 10:32 01/27/25 09:50 02/10/25 14:17 Height 5 ft 5 ft 5 ft Weight: 170 lb BMI 33.2 BP 128/77 H Intake Visit Reasons: 30 WK OB Chief Complaint: 30wk OB Template Fitter Required: No Is patient in pain?: No Allergies No Known Allergies Allergy (Verified 02/10/25 14:16) Medications ?Medication ?Instructions ?Recorded ?Confirmed ?Type docosahexaenoic acid 200 mg mg PO 08/27/24 02/10/25 Hi story capsule ( DHA) ondansetron HCl 4 mg tablet 4 mg PO Q4H #60 tabs 10/1002/10/25 Rx Last Menstrual Period: 07/17/24 : No PFSH PFSH Medical History ADHD Anxiety , ectopic, tubal Surgical History History of ectopic Family History Mother Thyroid disorder Adopted Hypertension Hyperlipidemia Grandmother Hypertension Grandfather Hypertension Father Asthma Social History adopted: No household members: significant other and other details: Brother & his baby current occupational status: employed current occupation: [employer] current occupational exposures/hazards: No pets and animals: [...] physical activity do you participate in: none christopher/sikh: None seatbelt use: always do you feel safe at home: Yes additional social history: BF: Fausto - [employer] Assistant History 2 Elective abortions Hx Para 0 Spontaneous abortions 0 Hx # Term Pregnancies Ectopic pregnancies 1 Hx # Pregnancies Multiple births # of living children 0 Past Pregnancies Del. Date Name GA/Weeks Outcome Route Bth Weight Gen Labor Lgth Anes t libertad Landon Locatn Provider FOB 09/08/20 4 ectopic SM Delivery Date: 09/08/20 Last Updated by: Farzaneh Deal RN Right ovarian tubal HPI 30 WK OB Details: NAN MEYERS is a 25 year old who presents for routine OB visit. OB Visit KELTON Calculator Estimated Delivery Date Method Current WG Current Estimate 04/23/25 LMP (Certain) 29w 5d Other Estimates 04/23/25 Ultrasound #1 29w 5d Expected Delivery Route/Plan Labor Preferences- CB/BF classes: encouraged labor support person: Fausto labor intervention preferences: [] pain management options preferred: epidural cut cord/dad catch: cord : yes PP control planned: discussed discussed possible routes of delivery and associated risks: [] special requests: [] Specific Issue/Plans Covid status: [] Flu vaccine: [] Tdap vaccine: [] Rhogam: NA LARC form signed: yes Problem list reviewed and updated with the [...] is considering moving to a practice in [place] due to moving to that area. 12/12/24 -?-?-?-?-?-?-?-?-?-?-?-?- 21w 1d 154 lb 6 oz 118/66 Nega tive -?-?-?-?-?-?-?-?-?-?-?-?- Negative 145 -?-?-?-?-?-?-?-?-?-?-?-?- JV- still having some spotting. anatomy shows clot at the lower uterine segment. She will need to return for further views and for cervical length. She denies cramping. Starting to feel some small movements and "shifts" 01/09/25 -?-?-?-?-?-?-?-?-?-?-?-?- 25w 1d 160 lb 9 oz 116/70 Nega tive -?-?-?-?-?-?-?-?-?-?-?-?- Negative 140 25 -?-?-?-?-?-?-?-?-?-?-?-?- SM- no vb feels damp sometimes over the past two weeks good fm. SM- no vb feels damp sometim es over the past two weeks good fm. ROM plus sent 01/27/25 -?-?-?--?-?-?-?-?-?-?-?-?- 27w 5d 162 lb 3 oz 122/71 Nega tive -?-?-?-?-?-?-?-?-?-?-?-?- Negative 143 28 -?-?-?-?-?-?-?-?-?-?-?-?- MH-No VB, LOF. G ood FM. Larc. Missed GCT draw time and will return later this week to complete 02/10/25 -?-?-?-?-?-?-?-?-?-?-?-?- 29w 5d 170 lb 128/77 Negative -?-?-?-?-?-?-?-?-?-?-?-?- Negative 144 30 -?-?-?-?-?-?-?-?-?-?-?-?- KW- no vb/lof/ct x. good fm. taking po iron ACOG First Trimester First Trimester: Desire for [...] Monitoring, Signs and Symptoms of Preeclampsia and Education ROS Const Reports system reviewed and no [...] Negative Last Edit by Meagan Parish on 02/10/25 14:24 Office Urine Protein Negative Last Edit by Meagan Parish on 02/10/25 14:24 Coding Level of Care Code Off vis,est,level 3 Diagnoses Anemia affecting O99.019 Chlamydia infection affecting in first trimester O98.811; A74.9 Trimester: first trimester History of ectopic Z87.59 Supervision of high risk in second trimester O09.92 Trimester: second trimester 29 weeks gestation of Z3A.29 Weeks of gestation: 29 weeks Smoker F17.200 Anxiety F41.9 Attention deficit hyperactivity disorder (ADHD), unspecified ADHD type F90.9 Attention deficit-hyperactivity disorder type: unspecified Assessment and Plan Assessment and Plan (1) Anemia affecting : Status: Acute Comment: OTC iron, rpt CBC in 4wks (2) Chlamydia infection affecting : Status: Acute Qualifiers: Trimester: first trimester Qualified Code(s): O98.811 - Other maternal infectious and parasitic diseases complicating , first trimester; A74.9 - Chlamydial infection, unspecified Comment: + @ NOB. Treated and vomited med. [place] Rx sent and zofram prior. Rpt test negative (3) History of ectopic : Status: Acute Comment: 09/08/20 - surgery by , was in right ovary and still has both tubes. (4) Supervision of high-risk : Status: Acute Qualifiers: Trimester: second trimester Qualified Code(s): O09.92 - Supervision of high risk , unspecified, second trimester Comment: [id number], KELTON 04/23/25, BF: Edventura (5) : Status: Acute Qualifiers: Weeks of gestation: 29 weeks Qualified Code(s): Z3A.29 - 29 weeks gestation of Comment: NIPT low risk, growth nl. MIKHAIL slightly smaller. US in 4 weeks. (6) Smoker: Status: Acute Comment: Last smoke: 08/25, Exposed to second hand (7) Anxiety: Status: Acute Comment: No meds; stable (8) ADHD: Status: Acute Qualifiers: Attention deficit-hyperactivity disorder type: unspecified Qualified Code(s): F90.9 - Attention-deficit hyperactivity disorder, unspecified type Comment: No meds currently; [employer] in high school Orders: Orders POC Urinalysis 2 Dip (Clinic) Today Tdap Immunization Today Z23 - Encounter for immunization Medications: New Adacel(Tdap Adolesn/Adult)(PF) (diph,pertuss(acel),tet vac(PF)) 0.5 mL IM ONCE 0.5 mL 0RF NS Z23 - Encounter for immunization Plan Details Additional Comments: ACOG trimester education reviewed and updated. see problem list details for updated plan management information and see below for orders placed at this visit. GA appropriate handout given. 02/10/25 1432 <Electronically signed by Glendy acosta CNM> Date _ Glendy Arvizu CNM Cosigner Signature: Date (if applicable) CC: ~ [facility] Work Phone: 1(765) 810-426209-22-2025 [facility] [address], [address] [place] [id number] OFFICE VISIT Date of Service: 01/27/25 MR#: [id number] Acct: [id number] Name: NAN MEYERS Rep #: [id number] : 2000 Provider: DEBORAH Vital Age/Sex: 25/F [place] [facility] [place]: Signed Intake Vital Signs 12/12/24 13:21 12/12/24 13:48 01/09/25 10:32 01/27/25 09:50 Height 5 ft 5 ft 5 ft 5 ft Weight: 160 lb 9 oz 162 lb 3 oz BMI 31.4 31.6 BP 116/70 122/71 H Intake Visit Reasons: 28 WK OB/GLUCOSE Template Fitter Required: No Is patient in pain?: No Allergies No Known Allergies Allergy (Verified 01/27/25 09:49) Medications ?Medication ?Instructions ?Recorded ?Confirmed ?Type docosahexaenoic acid 200 mg mg PO 08/27/24 01/27/25 Hi story capsule ( DHA) ondansetron HCl 4 mg tablet 4 mg PO Q4H #60 tabs 10/1001/27/25 Rx Last Menstrual Period: 07/17/24 Zika: Zika virus screening: Negative : No Have you fallen in the past year?: No PFSH PFSH Medical History ADHD Anxiety , ectopic, tubal Surgical History History of ectopic Family History Mother Thyroid disorder Adopted Hypertension Hyperlipidemia Grandmother Hypertension Grandfather Hypertension Father Asthma Social History adopted: No household members: significant other and other details: Brother & his baby current occupational status: employed current occupation: [employer] current occupational exposures/hazards: No pets and animals: [...] physical activity do you participate in: none christopher/sikh: None seatbelt use: always do you feel safe at home: Yes additional social history: BF: Fausto - [employer] Habilitation Assistant History 2 Elective abortions Hx Para 0 Spontaneous abortions 0 Hx # Term Pregnancies Ectopic pregnancies 1 Hx # Pregnancies Multiple births # of living children 0 Past Pregnancies Del. Date Name GA/Weeks Outcome Route Bth Weight Infant Gen Labor Lgth Anesthesia Del Locatn Provider FOB 09/08/20 4 ectopic SM Delivery Date: 09/08/20 Last Updated by: Farzaneh Deal RN Right ovarian tubal HPI 28 WK OB/GLUCOSE Details: NAN MEYERS is a 25 year old who presents for routine OB visit. OB Visit KELTON Calculator Estimated Delivery Date Method Current WG Current Estimate 04/23/25 LMP (Certain) 27w 5d Other Estimates 04/23/25 Ultrasound #1 27w 5d Expected Delivery Route/Plan Labor Preferences- CB/BF classes: encouraged labor support person: Fausto labor intervention preferences: [] pain management options preferred: epidural cut cord/dad catch: cord : yes PP control planned: discussed discussed possible routes of delivery and associated risks: [] special requests: [] Specific Issue/Plans Covid status: [] Flu vaccine: [] Tdap vaccine: [] Rhogam: NA LARC form signed: yes Problem list reviewed and updated with the most current plan of care details and appropriate ordersplaced. Relevant counseling for the gestational age provided. [...] at placenta. Said she is waiting for insurance- discussed options, will consider and schedule with MFM. Also is considering moving to a practice in [place] due to moving to that area. 12/12/24 -?-?-?-?-?-?-?-?-?-?-?-?- 21w 1d 154 lb 6 oz 118/66 Nega tive -?-?-?-?-?-?-?-?-?-?-?-?- Negative 145 -?-?-?-?-?-?-?-?-?-?-?-?- JV- still having some spotting. anatomy shows clot at the lower uterine segment. She will need to return for further views and for cervical length. She denies cramping. Starting to feel some small movements and "shifts" 01/09/25 -?-?-?-?-?-?-?-?-?-?-?-?- 25w 1d 160 lb 9 oz 116/70 Nega tive -?-?-?-?-?-?-?-?-?-?-?-?- Negative 140 25 -?-?-?-?-?-?-?-?-?-?-?-?- SM- no vb feels damp sometimes over the past two weeks good fm. SM- no vb feels damp sometim es over the past two weeks good fm. ROM plus sent 01/27/25 -?-?-?-?-?-?-?-?-?-?-?-?- 27w 5d 162 lb 3 oz 122/71 Nega tive -?-?-?-?-?-?-?-?-?-?-?-?- Negative 143 28 -?-?-?-?-?-?-?-?-?-?-?-?- MH-No VB, LOF. G ood FM. Larc. Missed GCT draw time and will return later this week to complete ACOG First Trimester First Trimester: Desire for , Alcohol, Tobacco Cessation, Illicit/Recreational Drug/Substance Use, Intimate Partner Violence, Barriers to care, Unstable Housing, Communication Barriers, Environmental/Work Hazards, Anticipated Course of Care, Toxoplasmosis Precations, Use of Any med ications, Sexual activity, Exercise, Dental Care, Sauna/Hot tub [...] Monitoring, Signs and Symptoms of Preeclampsia and [place] Education ROS Const Reports system reviewed and no additional complaints, except as documented GI Denies abdominal pain, Denies nausea and Denies vomiting Exam Const General: cooperative Nutritional Appearance: well nourished GI Palpation: soft, nontender and other (gravid) Results POC Urinalysis 2 Dip (Clinic) Office Urine Glucose Negative Last Edit by Rebecca Leo on 01/27/25 10:03 Office Urine Protein Negative Last Edit by Rebecca Leo on 01/27/25 10:03 Coding Level of Care Code Off vis,est,level 3 Diagnoses Supervision of high risk in second trimester O09.92 Trimester: second trimester 27 weeks gestation of Z3A.27 Weeks of gestation: 27 weeks Chlamydia infection affecting in first trimester O98.811; A74.9 Trimester: first trimester History of ectopic Z87.59 Smoker F17.200 Anxiety F41.9 Attention deficit hyperactivity disorder (ADHD), unspecified ADHD type F90.9 Attention deficit-hyperactivity disorder type: unspecified Assessment and Plan Assessment and Plan (1) Supervision of high-risk : Status: Acute Qualifiers: Trimester: second trimester Qualified Code(s): O09.92 - Supervision of high risk , unspecified, second trimester Comment: [id number], KELTON 04/23/25, BF: Edventura (2) : Status: Acute Qualifiers: Weeks of gestation: 27 weeks Qualified Code(s): Z3A.27 - 27 weeks gestation of Comment: NIPT low risk, growth nl. MIKHAIL slightly smaller. US in 4 weeks. (3) Chlamydia infection affecting : Status: Acute Qualifiers: Trimester: first trimester Qualified Code(s): O98.811 - Other maternal infectious and parasitic diseases complicating , first trimester; A74.9 - Chlamydial infection, unspecified Comment: + @ NOB. Treated and vomited med. [place] Rx sent and zofram prior. Rpt test negative (4) History of ectopic : Status: Acute Comment: 09/08/20 - surgery by SM, was in right ovary and still has both tubes. (5) Smoker: Status: Acute Comment: Last smoke: 08/25, Exposed to second hand (6) Anxiety: Status: Acute Comment: No meds; stable (7) ADHD: Status: Acute Qualifiers: Attention deficit-hyperactivity disorder type: unspecified Qualified Code(s): F90.9 - Attention-deficit hyperactivity disorder, unspecified type Comment: No meds currently; [employer] in high school Orders: Orders POC Urinalysis 2 Dip (Clinic) Today Plan problem list reviewed and updated for most current plan of care and appropriate orders placed. Relevant counseling for the gestational age appropriate provided and ACOG education checklist updated. Continue routine care and follow up. Clinical Quality Measures Falls Risk Screening/Assistive Devices Have you fallen in the past year?: No 01/27/25 1004 s [employer]C> Date _ Negrita Vital [employer] Cosigner Signature: Date (if applicable) CC: ~ [facility] [id number] [facility] [address] [place] [address], [address] [place] [address] OFFICE VISIT Date of Service: 01/09/25 MR#: [id number] Acct: [id number] Name: NAN MEYERS Rep #: [id number] : 2000 Provider: Dr. Greg Chou MD Age/Sex: 24/F [place] [facility] [place]: Signed Intake Vital Signs 10/15/24 08:32 12/12/24 13:48 01/09/25 10:32 Height 5 ft 5 ft 5 ft Weight: 160 lb 9 oz BMI 31.4 BP 116/70 Intake Visit Reasons: 25 wk ob Template Fitter Required: No Is patient in pain?: No [...] current occupational status: employed current occupation: [employer] current occupational exposures/hazards: No pets and animals: [...] physical activity do you participate in: none christopher/sikh: None seatbelt use: always do you feel safe at home: Yes additional social history: BF: Fausto - [employer] Assistant History 2 Elective abortions Hx Para 0 [...] current plan of care details and appropriate ordersplaced. Relevant counseling for the gestational age provided. [...] at placenta. Said she is waiting for insurance- discussed options, will consider and schedule with MFM. Also is considering moving to a practice in [place] due to moving to that area. 12/12/24 -?-?-?-?-?-?-?-?-?-?-?-?- 21w 1d 154 lb 6 oz 118/66 Nega tive -?-?-?-?-?-?-?-?-?-?-?-?- Negative 145 -?-?-?-?-?-?-?-?-?-?-?-?- JV- still having some spotting. anatomy shows clot at the lower uterine segment. She will need to return for further views and for cervical length. She denies cramping. Starting to feel some small movements and "shifts" 01/09/25 -?-?-?-?-?-?-?-?-?-?-?-?- 25w 1d 160 lb 9 [...] of Care, Toxoplasmosis Precations, Use of Any med ications, Sexual activity, Exercise, Dental Care, Sauna/Hot tub [...] Monitoring, Signs and Symptoms of Preeclampsia and Education Results POC Urinalysis 2 Dip (Clinic) [...] + @ NOB. Treated and vomited med. [place] Rx sent and zofram prior. (2) History of ectopic : Status: Acute Comment: 09/08/20 - surgery by SM, was in right ovary and still has both tubes. (3) Supervision of high-risk : Status: Acute Qualifiers: Trimester: second trimester Qualified Code(s): O09.92 - Supervision of high risk , unspecified, second trimester Comment: [id number], KELTON 04/23/25, BF: Fausto (4) : Status: [...] disorder, unspecified type Comment: No meds currently; [employer] in high school Orders: Orders POC Urinalysis [...] specified related conditions, second trimester 01/09/25 1104 jolanta [facility]> Date _ Nereida Chou MD Cosign Signature: Date (if applicable) CC: ~ [facility]08-05-2025 Miscellaneous Notes* Nursing Notes - Raissa Fontanez RN - 12/10/2024 1:55 AM EDT Discharge AVS reviewed with patient and significant other. Verbal education provided along with attachment of education to patient AVS in regards to round ligament pain, abdominal pain, and pregnancyin gestation of 20+ weeks. Patient reports next OB appointment to be this 12/12/2024. Patient encouraged to attend appointment. Patient asks about delivering providers at present location. Informed of providers with delivering privileges within both [facility] campuses. Patient and significant other deny additional concerns. Ambulate off unit with AVS in hand at 0200. * Nursing Notes - Yue Stern RN - 12/10/2024 1:[address] Trujillo called with [facility]. Orders to discharge pt * Nursing Notes - Yue Stern RN - 12/10/2024 1:27 AM EDT Pt arrives to unit with complaint of dusing a doppler at home and noting heart rate of 55 . Pt is a and is 20w3d. Rates her pain a 3 on a scale of 0-10. Denies any vaginal bleeding or leaking of fluid. Oriented to room and plan of care. Up to bathroom to change into gown. [facility]* Nursing Notes - Raissa Fontanez RN - 12/10/2024 1:55 AM EDT Discharge AVS reviewed with patient and significant other. Verbal education provided along with attachment of education to patient AVS in regards to round ligament pain, abdominal pain, and pregnancyin gestation of 20+ weeks. Patient reports next OB appointment to be this 12/12/2024. Patient encouraged to attend appointment. Patient asks about delivering providers at present location. [facility] Patient and significant other deny additional concerns. Ambulate off unit with AVS in hand at 0200. [facility] Nurse Note* Nursing Notes - Yue Stern RN - 12/10/2024 1:[address] Trujillo called with [facility]. Orders to discharge pt [facility] Nurse Note* Nursing Notes - Yue Stern RN - 12/10/2024 1:27 AM EDT Pt arrives to unit with complaint of dusing a doppler at home and noting heart rate of 55 . Pt is a and is 20w3d. Rates her pain a 3 on a scale of 0-10. Denies any vaginal bleeding or leaking of fluid. Oriented to room and plan of care. Up to bathroom to change into gown. [facility]07-10-2025 [facility] [address] [place] [address], [address] [place] [address] OFFICE VISIT Date of Service: 11/14/24 MR#: [id number] Acct: [id number] Name: NAN MEYERS Rep #: [id number] : 2000 Provider: NURYS Arvizu Age/Sex: 24/F [place] [facility] [place]: Signed Intake Vital Signs 09/16/24 11:33 11/02/24 09:08 11/14/24 11:40 Height 5 ft 5 ft 5 ft Weight: 143 lb 8 oz BMI 28.0 BP 128/71 H Intake Visit Reasons: 17wk ob Chief Complaint: 17wk OB Template Fitter Required: No Is patient in pain?: No [...] baby current occupational status: employed current occupation: [employer] current occupational exposures/hazards: No pets and animals: [...] physical activity do you participate in: none christopher/sikh: None seatbelt use: always do you feel safe at home: Yes additional social history: BF: Fausto - [employer] Assistant History 2 Elective abortions Hx Para 0 [...] current plan of care details and appropriate ordersplaced. Relevant counseling for the gestational age provided. [...] at placenta. Said she is waiting for insurance- discussed options, will consider and schedule with MFM. Also is considering moving to a practice in [place] due to moving to that area. ACOG First Trimester First Trimester: Desire for , Alcohol, Tobacco Cessation, Illicit/Recreational Drug/Substance Use, Intimate Partner Violence, Barriers to care, Unstable Housing, Communication Barriers, Environmental/Work Hazards, Anticipated Course of Care, Toxoplasmosis Precations, Use of Any med ications, Sexual activity, Exercise, Dental Care, Sauna/Hot tub [...] + @ NOB. Treated and vomited med. [place] Rx sent and zofram prior. (2) History of ectopic : Status: Acute Comment: 09/08/20 - surgery by SM, was in right ovary and still has both tubes. (3) Supervision of high-risk : Status: Acute Qualifiers: Trimester: second trimester Qualified Code(s): O09.92 - Supervision of high risk , unspecified, second trimester Comment: [id number], KELTON 04/23/25, BF: Fausto (4) : Status: [...] disorder, unspecified type Comment: No meds currently; [employer] in [employer] Orders: Orders POC Urinalysis 2 Dip (Clinic) Today Chlamydia/GC VISHNU aptima Today A74.9 - Chlamydial infection, unspecified, O98.811 - Other maternal infectious and parasitic diseases complicating , first trimester Plan Details Additional Comments: ACOG trimester education reviewed and updated. see problem list details for updated plan management information and see below for orders placed atthis visit. [place] appropriate handout given. 11/14/24 1203 s CNM> Date _ Glendy Arvizu CNM Cosigner Signature: Date (if applicable) CC: ~ [facility] [id number] Radiology Diagnostic study note [facility] Imaging Services [address] [place], [place] [address] OB Limited With Biometrics MR#: [id number] Acct: [id number] Name: NAN MEYERS Rep #: [id number] : 2000 F 24 From: Pet er Peer DO PCP: MARISA WILLIAM CORPORATE CLAIMS EXAMINER-C Status: REG ER Study:OB Limited With Biometrics Date of Exam : 11/02/24 Exam# [id number] Ordering Dr: Mike Dill DO PROCEDURE: OB [...] above diagnosis is low. Maternal- medicine in [facility] consult may be considered Reading Location: [facility] CC: MARISA YANES; Dr. Mike Dill, DO ~ Reconciliation Machine Operator: Signed [facility]06-10-2025 Evaluation note* Diagnosis Onset Date Resolution Status Admit Date ADHD acute October 15 8:30am Anxiety acute [...] acute January 09, 2025 10:18am Chlamydia infection affectin g acute January 09 10:18am History of ectopic acute January 09, 2025 10:18am acute January 09, 2025 10:18am Smoker acute January 09, 2025 10:18am Supervision of high-risk acute January 09 10:18am ADHD acute January 9:44am Anxiety acute January 9:44am Chlamydia infection affectin g acute January 27, 2025 9:44am History of ectopic acute January 27, 2025 9:44am acute January 9:44am Smoker acute January 9:44am Supervision of high-risk acute January 27, 2025 9:44am [facility] Work Phone: 1(842) 441-622506-10-2025 Evaluation note* Diagnosis Onset Date Resolution Status Admit Date ADHD acute October 15 8:30am Anxiety acute [...] acute January 09, 2025 10:18am Chlamydia infection affectin g acute Melania 4th, 2 025 10:18am History of ectopic acute January 09, 2025 10:18am acute January 09, 2025 10:18am Smoker acute January 09, 2025 10:18am Supervision of high-risk acute January 09, 025 10:18am ADHD acute January 9:44am Anxiety acute January 9:44am Chlamydia infection affectin g acute January 27, 2025 9:44am History of ectopic acute January 27, 2025 9:44am acute January 9:44am Smoker acute January 9:44am Supervision of high-risk acute January 27, 2025 9:44am ADHD acute February 10, 2 025 2:15pm Anemia affecting acute February 10, 2025 2:15pm Anxiety acute February 10, 025 2:15pm Chlamydia infection affectin g acute February 10 2:15pm History of ectopic acute February 10, 2025 2:15pm acute February 10, 025 2:15pm Smoker acute February 10, 025 2:15pm Supervision of high-risk acute February 10 2:15pm [facility] Work Phone: 1(425) 486-316005-12-2025 Evaluation note* Diagnosis Onset Date Resolution Status Admit Date ADHD acute September 16, 2024 11:29am Anxiety [...] acute January 09, 2025 10:18am Chlamydia infection affectin g acute January 09, 025 10:18am History of ectopic acute January 09, 2025 10:18am acute January 09, 2025 10:18am Smoker acute January 09, 2025 10:18am Supervision of high-risk acute January 09, 025 10:18am [facility] Work Phone: 1(420) 939-303104-22-2025 Evaluation note* Diagnosis Onset Date Resolution Status [...] high-risk acute September 16, 2024 1 1:29am [facility] Work Phone: 1(107) 575-337504-22-2025 Evaluation note* Diagnosis Onset Date Resolution Status [...] of high-risk acute October 15, 2024 8:[address]am [facility] Work Phone: 1(643) 964-977604-22-2025 Evaluation note* Diagnosis Onset Date Resolution Status [...] of high-risk acute November 14, 2024 11:31am [facility] Work Phone: 1(185) 403-868504-22-2025 Evaluation note* Diagnosis Onset Date Resolution Status [...] of high-risk acute December 12, 2024 1:03pm [facility] Work Phone: [phone]) [phone] Telephone encounter Note* Telephone Encounter - MARELY SANCHEZ - 07/30/2024 7:54 AM EDT Patient scheduled for nurse visit 07/30/24 to receive PPD testing. Please place order at this time. Marely Sanchez LPN [facility]03-25-2025 Miscellaneous Notes* Telephone Encounter - MARELY SANCHEZ - 07/30/2024 7:54 AM EDT Patient scheduled for nurse visit 07/30/24 to receive PPD testing. Please place order at this time. Marely Sanchez LPN documented in this encounterPromedica Memorial Hospital03-01-2025 [id number] (AGENT OF COVID-19) RNA: Not detected INFLUENZA A RNA: Not detected INFLUENZA B RNA: Not detected RESPIRATORY SYNCYTIAL VIRUS (RSV) RNA: Not detectedDayton Osteopathic HospitalComment on above:Performed By: #### [id number]- [id number] ####[facility] LABCLIA [id number] [address]03-01-2025 NoteHNO ID: [id number] Author: JANELLE WELDON APRN.CITY ALDERMAN Service: ? Author Type: Nurse Practitioner Type: Progress Notes Filed: 07/06/2024 11:46 Note Text: Subjective The history is provided by the patient. No certified court/medical interpreter was used. KEITH Meyers is a 24 year old female who presents today for CC of cough, congestions, runny nose for 10 days. 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 She was [...] have confirmed and edited as necessary, the [facility] Review of Systems Constitutional: Negative for chills [...] detail warranting prompt ER evaluation. Janelle Weldon APRN.[facility]03-01-2025 History of Present illness Narrative* Janelle Weldon APRN.CITY ALDERMAN - 07/06/2024 11:42 AM EST Subjective The history is provided by the patient. No certified court/medical interpreter was used. KEITH Meyers is a 24 year old female who presents today for CC of cough, congestions, runny nose for 10 days. 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 She was [...] have confirmed and edited as necessary, the [facility] Review of Systems Constitutional: Negative for chills [...] indetail warranting prompt ER evaluation. Janelle Weldon APRN.CITY ALDERMAN documented in this encounterPromedica Memorial Hospital03-01-2025 Instructions* Patient Instructions* Janelle Weldon APRN.CNP [...] breath, inability to swallow. documented in this encounterPromedica Memorial Hospital02-25-2025 NoteHNO ID: [id number] Author: CARLOS SALAZAR PA-C Service: ? Author Type: Physician Cutter Aluminum Sheet Type: Progress Notes Filed: 07/02/2024 17:38 Note Text: This note was created using RMDMgroup. Subjective Nan Meyers is a 24 year [...] J02.9 - PREDNISONE 20 MG TABLET JAMMIE [facility]ero-[facility]02-25-2025 History of Present illness Narrative* Carlos Salazar PA-C - 07/02/2024 5:24 PM EST This note was created using burrp!ter. Subjective Nna Meyers is a 24 year old female. [...] ICD10: J02.9 - PREDNISONE 20 MG TABLET Carols Salazar PA-C documented in this encounterPromedica Memorial Hospital02-11-2025 Instructions* Patient Instructions* Debbi Arceo APRN.CITY ALDERMAN - 06/18/2024 12:01 PM EST ASSESSMENT/PLAN: 1. [...] illness Debbi Arceo APRN.CNP documented in this encounterPromedica Memorial Hospital02-11-2025 [id number] (AGENT OF COVID-19) RNA: Not detected INFLUENZA A RNA: Not detected INFLUENZA B RNA: Not detected RESPIRATORY SYNCYTIAL VIRUS (RSV) RNA: Not detectedDayton Osteopathic HospitalComment on above:Performed By: #### [id number]- 1 ####[facility] LABCLIA [id number] [address]02-11-2025 NoteHNO ID: [id number] Author: DEBBI ARCEO APRN.LACEY Service: ? Author Type: Nurse Practitioner Type: Progress Notes Filed: 06/18/2024 12:02 Note Text: Subjective HPI Nan Meyers is a 24 year old female who presents with cough, chills, nausea, vomiting and headache for the past 3 days. 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 Author Type: Nurse Practitioner Type: Progress Notes Filed: 05/10/2024 10:00 Note Text: Chief Complaint Patient presents with: Physical: Needs for new job HPI Nan Meyers is a 24 year old female who presents here today for Above Complaints. Nan is an established patient of myself. Concerns today.. 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 [...] referral. I also discussed with patient that care navigator may be beneficial. Patient was educated on supportive therapies. Patient will follow up with primary care provider as needed. " No other concerns or complaints. Past medical [...] 88 Resp 12 Ht 156 cm (5' 1.42") Wt 65 kg (143 lb 6.4 oz) [...] Vaccine(1) due on 11/04/2024 Covid-19 Vaccine( - 2023-25 season) due on 05/10/2025 Hepatitis B Vaccine Completed HPV Vaccine Completed Hepatitis C Screening Discontinued HIV Screening Discontinued ASSESSMENT/ (more content not included)...[facility]01-03-2025 History of Present illness Narrative* Marisa William, LUIS CARLOS.CITY ALDERMAN - 05/10/2024 9:21 AM EST Chief Complaint Patient presents with: Physical: Needs for new job HPI Nan Meyers is a 24 year old female who presents here today for Above Complaints. Nan is an established patient of myself. Concerns today.. 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 [...] referral. I also discussed with patient that care navigator may be beneficial. Patient was educated on supportive therapies. Patient will follow up with primary care provider as needed. " No other concerns or complaints. Past medical [...] 88 Resp 12 Ht 156 cm (5' 1.42") Wt 65 kg (143 lb 6.4 oz) [...] Influenza Vaccine(1) due on 11/04/2024 Covid-19 Vaccine( season) due on 05/10/2025 Hepatitis B Vaccine [...] agreeable to treatment plan. Marisa Pro APRN.LACEY [address] [place] [address] documented in this encounterPromedica Memorial Hospital09-30-2024 NoteHNO ID: [id number] Author: NAINA NICHOLS APRN.CNP Service: ? Author [...] Patient agreeable to treatment plan. Naina Nichols APRN.[facility]09-30-2024 History of Present illness Narrative* Naina Nichols APRN.[facility] - 02/05/2024 10:54 AM EDT CC: [...] Patient agreeable to treatment plan. Naina Nichols APRN.CITY ALDERMAN documented in this encounterPromedica Memorial Hospital07-23-2024 NoteHNO ID: [id number] Author: STEF GUEVARA PA Service: ? Author Type: Physician Cutter Aluminum Sheet Type: Progress Notes Filed: 11/28/2023 13:48 Note Text: This note was created using [employer]riter. Deonte Meyers is a 23 year old [...] detail warranting prompt ER evaluation. Stef Guevara [facility]07-23-2024 History of Present illness Narrative* Stef Guevraa PA - 11/28/2023 1:40 PM EDT This note was created using burrp!ter. Deonte Meyers is a 23 year old [...] ER evaluation. JAMMIE Farris documented in this encounterPromedica Memorial Hospital06-28-2024 NoteHNO ID: [id number] Author: BELTRAN CARREON APRN.CITY ALDERMAN Service: ? Author Type: Nurse Practitioner Type: [...] referral. I also discussed with patient that care navigator may be beneficial. Patient was educated on [...] of care. This note was generated using Media Chaperone software. It may contain errors in wording, punctuation, or spelling. Beltran Carreon APRN.[facility]06-28-2024 History of Present illness Narrative* Beltran Carreon APRN.[facility] - 11/03/2023 8:03 AM EDT Images from [...] referral. I also discussed with patient that care navigator may be beneficial. Patient was educated on [...] of care. This note was generated using Media Chaperone software. It may contain errors in wording, punctuation, or spelling. Beltran Carreon APRN.LACEY documented in this encounterPromedica Memorial Hospital04-26-2024 NoteHNO ID: [id number] Author: MARISA WILLIAM APRN.CNP Service: ? Author Type: Nurse Practitioner Type: Progress Notes Filed: 09/01/2023 14:29 Note Text: Chief Complaint Patient presents with: physical HPI Nan Meyers is a 23 year old female who presents here today for Above Complaints. Nan is an established patient of Dr. Joiner, and myself. Concerns today... 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 Has paperwork to fill out. Recent wellness [...] No history of dysuria, frequency or incontinence SAP SOLUTION MANAGER CONSULTANT: Negative for abnormal vaginal bleeding, abnormal vaginal [...] 60 Resp 12 Ht 154.2 cm (5' 0.71") Wt 63 kg (139 lb) LMP 05/04/2023 [...] Based On Risk(1 of (more content not included)...[facility]04-26-2024 History of Present illness Narrative* Marisa William, DOWEL PIN MAN.CITY ALDERMAN - 09/01/2023 1:17 PM EDT Chief Complaint Patient presents with: physical HPI Nan Meyers is a 23 year old female who presents here today for Above Complaints. Nan is an established patient of Dr. Joinre, Do and myself. Concerns today... 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 Has paperwork to fill out. Recent wellness [...] No history of dysuria, frequency or incontinence SAP SOLUTION MANAGER CONSULTANT: Negative for abnormal vaginal bleeding, abnormal vaginal [...] 60 Resp 12 Ht 154.2 cm (5' 0.71") Wt 63 kg (139 lb) LMP 05/04/2023 [...] (Gonorrhea) Screening (18-24) Never done Chlamydia Screening (18-24) Never done Pap Testing Never done Behavioral Health Screening Never done Covid-19 Vaccine( - 2022- season) due on 03/29/2024 Influenza Vaccine(Season Ended) [...] new employer, pt cleared to work as MEDIA SPECIALIST from my standpoint. No concerns. - immunization record printed for employer. RTO annually and as needed. Prescription instructions reviewed with patient as applicable. Potential red flag symptoms discussed with the patient. Reviewed appropriate action plan to take if red flag symptoms occur. Patient agreeable to treatment plan. Marisa Pro APRN.LACEY [address] [place] [address] documented in this encounterPromedica Memorial Hospital02-27-2024 History of Present illness Narrative* Naina [...] was reviewed and agreed upon. Naina Nichols APRN.LACEY documented in this encounterPromedica Memorial Hospital02-19-2024 History of Present illness Narrative* May Delaney APRN.LACEY - 06/26/2023 4:18 PM EST SUBJECTIVE: Nan [...] My Chart. MDM: Patient presented to the [facility] for viral testing. Nan Meyers [...] A/B & RSV NAAT, ROUTINE May Delaney APRN.CITY ALDERMAN documented in this encounterPromedica Memorial Hospital12-14-2023 History of Present illness Narrative* Kj [...] Wt 62.1 kg (137 lb) LMP 10/18/2022 [id number]% BMI 25.70 kg/m PHYSICAL EXAM: GEN: pleasant, [...] improving. Kj Amaya MD documented in this encounterPromedica Memorial Hospital11-22-2023 History of Present illness Narrative* Marisa William APRN.CITY ALDERMAN - 03/29/2023 7:03 AM EST Chief Complaint Patient presents with: Physical HPI Nan Meyers is a 23 year old female who presents here today for Above Complaints. Nan is establishing care with our PCP team today from pediatrics. Concerns today.. Routine physical for new job. 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 Eats healthy overall and stays active daily. BMI is healthy. No concerns or complaints. No current known chronic conditions or routine medication regimen. Willing to have routine lab work done. -- Due for routine PAP and STD [...] 69 Resp 12 Ht 155.5 cm (5' 1.22") Wt 61.8 kg (136 lb 3.2 oz) [...] agreeable to treatment plan. Marisa Pro APRN.LACEY [address] [place] [address] documented in this encounterPromedica Memorial Hospital10-24-2023 History of Present illness Narrative* Janie Holder PA-C - 02/28/2023 12:35 PM EDT This note was created using burrp!ter. Subjective Nan Meyers is a 23 year old female. HPI Patient presents with a chief complaint of nausea over the past day. States yesterday she felt likeshe did throw up at work so she had left. She called off today as well. Denies any abdominal pain. No diarrhea. Denies runny nose, cough, sore throat. 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 She [...] Wt 60.3 kg (133 lb) LMP 10/18/2022 HbX597% BMI 25.77 kg/m Physical Exam Vitals reviewed. [...] ROUTINE Janie Holder PA-C documented in this encounterPromedica Memorial Hospital09-19-2023 History of Present illness Narrative* Lizette Kinney APRN.CITY ALDERMAN - 01/24/2023 5:20 PM EDT This note was created using RMDMgroup. Subjective Nan Meyers is a 23 year old female. 23 year old female with PMH ADHD, anxiety presents for complaints of illness. Acute onset 0400 Monday morning +N/V/D +stomach cramps. States that she is correlating it with eating food from [employer] Monday night. Endorses that today she has complete resolvement of symptoms. Denies fever or chills here Denies N/V/D today Endorses she is here for a work note. States that her work threatened termination without medical excuse. The history is provided by the patient. No certified court/medical interpreter was used. Vomiting This is a new [...] suspicious food intake. Sx have resolved. States " feeling better today" Requesting work note Provided Lizette Kinney APRN.CNP documented in this encounterPromedica Memorial Hospital09-14-2023 History of Present illness Narrative* Kj Amaya MD - 01/19/2023 2:41 PM EDT Patient presents with: Pain: chest pain x 3-4 days, off and on HPI: chest pain: Duration: 3-4 days Location: right mid chest Character: sharp, intermittent, lasts 1 minute then resolves Radiation: No. Aggravating: none Relieving: none Pain relievers: none Associated: started work at a new job this week (MEDIA SPECIALIST at group home), Pertinent negatives: Denies chest pain, shortness of [...] PE. Kj Amaya MD documented in this encounterPromedica Memorial Hospital06-20-2023 History of Present illness Narrative* Janie Holder PA-C - 10/25/2022 2:49 PM EDT This note was created using RMDMgroup. Subjective Nan Meyers is a 22 year [...] Wt 55.9 kg (123 lb 3.2 oz) [facility]10/18/2022 SpO2 97% BMI 23.87 kg/m Physical [...] plan. Janie Holder PA-C documented in this encounterPromedica Memorial Hospital06-20-2023 Instructions* Patient Instructions* Janie Holder PA-C - 10/25/2022 2:20 PM EDT May take 600mg of ibuprofen every 6-8 hours and tylenol 500-1000mg every 4-6 hours(max dose 4000 mga day) Trial flonase and zyrtec for fluid in ear. If not better follow up with pcp. documented in this encounterPromedica Memorial Hospital05-08-2023 History of Present illness Narrative* Lizette Kinney, DOWEL PIN MAN.CITY ALDERMAN - 09/12/2022 3:30 PM EDT This note was created using RMDMgroup. Deonte Meyers is a 22 year old female. 22 year old female with PMH ADHD and anxiety presents for complaints of illness. Acute onset 5 days ago +stuffy nose +sore throat States voice has progressively worsened. +cough Denies SOB or dyspnea Denies abdominal pain Denies N/V/D Has used Ibuprofen and cough drops. 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 States that she is requiring documentation for her job as they are threatening to fire her. Denies inability to handle secretions. Denies muffled voice. The history is provided by the patient. No certified court/medical interpreter was used. Sore Throat This is a [...] still sick in one week Lizette Kinney APRN.CITY ALDERMAN documented in this encounterPromedica Memorial Hospital02-23-2023 Instructions* Patient Instructions* Tessa Gallegos - [...] ROUTINE Tessa Gallegos APRN-student documented in this encounterPromedica Memorial Hospital02-23-2023 History of Present illness Narrative* Debbi Jensen-LUIS CARLOS Casiano.CITY ALDERMAN - 06/30/2022 2:09 PM EST This note was created using RMDMgroup. Subjective Nan Meyers is a 22 year [...] Discussed expected course of illness TEACHING PROVIDER (Physician/PA/DOWEL PIN MAN) NOTE OF PERSONAL INVOLVEMENT IN CARE: I have personally seen and examined the patient and performed the medical decision-making components. I have reviewed the Advanced Practice Registered Nurse (DOWEL PIN MAN) Student's documentation and verified the findings in the note as written. Any additions or changes are noted in bold/italics. Signature: Debbi Arceo Date: 06/30/2022 Time: 2:29 PM documented in this encounterPromedica Memorial Hospital10-20-2022 Miscellaneous Notes* Telephone Encounter - Unique [...] done Radha Kaiser LPN' documented in this encounterPromedica Memorial Hospital09-23-2022 Miscellaneous Notes* Telephone Encounter - Unique [...] Never done INFLUENZA(1) due on 01/06/2022 Adriana rn orthopaedics documented in this encounterPromedica Memorial Hospital08-18-2022 Miscellaneous Notes* Telephone Encounter - Unique [...] 2-dose series) Never done GC (GONORRHEA) SCREENING (-) Never done HEPATITIS C SCREENING Never done HIV SCREENING Never done CHLAMYDIA SCREENING (-) Never done Jonn Hardin RN documented in this encounterPromedica Memorial Hospital08-03-2022 Miscellaneous Notes* Telephone Encounter - Radha [...] done Radha Kaiser LPN documented in this encounterPromedica Memorial Hospital07-27-2022 Miscellaneous Notes* Telephone Encounter - Angie Maya RN - 12/01/2021 8:48 PM EDT Images from the original note were not included. Symptomatic Caregiver COVID Call Patient Name: Nan Meyers Date of : 2000 Primary Care Physician: Unique Rivas MD Service Date: 12/01/2021 Service Time: 8:48 PM Symptomatic Caregiver COVID Call - confirmed: Yes -Caregiver employee ID: [id number] -Symptom onset: 11/30 Covid Immunization Dates Overdue - COVID-19 VACCINE (1) Overdue - never done No completion, postpone, frequency change, or communication history exists for this topic. Recent travel outside [place]/[facility]: No Cares for COVID-19 positive patients: No [...] Time: 8:48 PM Pager/Contact: documented in this encounterPromedica Memorial Hospital06-30-2022 History of Present illness Narrative* Unique [...] Continue current medication. - Letter written for relocation director animal - Follow up in 3-6 months for routine ADHD follow up I spent a total of 30 minutes on the date of the service which included preparing to see the patient, [id number] patient care, completing clinical documentation and obtaining and/or reviewing separately obtained history. SIGNATURE: Unique Rivas MD PATIENT NAME: Nan Meyers DATE: November 04, 2021 TIME: 9:56 AM documented in this encounterPromedica Memorial Hospital06-30-2022 Instructions* Patient Instructions* Unique Rivas MD [...] drinks Go! Be healthy, inside and out! [email or web address] documented in this encounterPromedica Memorial Hospital05-17-2022 Miscellaneous Notes* Telephone Encounter - Allyn Leach Ma - 09/21/2021 8:04 AM EDT Refill has been sent to the pharmacy for months 09/20/21, 10/20/21 and 11/19/21 documented in this encounterPromedica Memorial Hospital05-17-2022 Miscellaneous Notes* Telephone Encounter - Allyn [...] done May Shaffer RN documented in this encounterPromedica Memorial Hospital05-16-2022 Instructions* Patient Instructions* Unique Rivas MD [...] drinks Go! Be healthy, inside and out! [email or web address] documented in this encounter[facility] History of Present illness Narrative* Kj [...] dentist. Kj Amaya MD documented in this encounterProm[facility]ica [facility]11-25-2013 History of Past illness Narrative* Problem Noted Date Resolved Date Short stature 04/01/2013 07/09/2021 Overview: April 01, 2013 - bone age is delayed Fracture of left distal radius 04/16/2012 0 06/15/2012 Fracture of radius, distal, right, closed 201104/16/2012 Poor weight gain (0-17) 11/08/2011 07/10/19 22 Constipation 07/26/2011 11/08/2011 documented as of this encounter (statuses as of 08/09/2021) [facility] of Past illness Narrative* Problem Noted Date Resolved Date Short stature 04/01/2013 07/09/2021 Overview: April 01, 2013 - bone age is delayed Fracture of left distal radius 04/16/2012 0 06/15/2012 Fracture of radius, distal, right, closed 201104/16/2012 Poor weight gain (0-17) 11/08/2011 07/10/19 22 Constipation 07/26/2011 11/08/2011 documented as of this encounter (statuses as of 09/21/2021) [facility] of [facility] illness Narrative* Problem Noted Date Resolved Date Short stature 04/01/2013 07/09/2021 Overview: April 01, 2013 - bone age is delayed Fracture of left distal radius 04/16/2012 0 06/15/2012 Fracture of radius, distal, right, closed 201104/16/2012 Poor weight gain (0-17) 11/08/2011 07/10/19 22 Constipation 07/26/2011 11/08/2011 documented as of this encounter (statuses as of 09/21/2021) [facility] Narrative* Problem Noted Date Resolved Date Short stature 04/01/2013 07/09/2021 Overview: April 01, 2013 - bone age is delayed Fracture of left distal radius 04/16/2012 0 06/15/2012 Fracture of radius, distal, right, closed 201104/16/2012 Poor weight gain (0-17) 11/08/2011 07/10/19 22 Constipation 07/26/2011 11/08/2011 documented as of this encounter (statuses as of 10/22/2021) [facility] Narrative* Problem Noted Date Resolved Date Short stature 04/01/2013 07/09/2021 Overview: April 01, 2013 - bone age is delayed Fracture of left distal radius 04/16/2012 0 06/15/2012 Fracture of radius, distal, right, closed 201104/16/2012 Poor weight gain (0-17) 11/08/2011 07/10/19 22 Constipation 07/26/2011 11/08/2011 documented as of this encounter (statuses as of 11/18/2021) [facility] Narrative* Problem Noted Date Resolved Date Short stature 04/01/2013 07/09/2021 Overview: April 01, 2013 - bone age is delayed Fracture of left distal radius 04/16/2012 0 06/15/2012 Fracture of radius, distal, right, closed 201104/16/2012 Poor weight gain (0-17) 11/08/2011 07/10/19 22 Constipation 07/26/2011 11/08/2011 documented as of this encounter (statuses as of 12/02/2021) [facility] Narrative* Problem Noted Date Resolved Date Short stature 04/01/2013 07/09/2021 Overview: April 01, 2013 - bone age is delayed Fracture of left distal radius 04/16/2012 0 06/15/2012 Fracture of radius, distal, right, closed 201104/16/2012 Poor weight gain (0-17) 11/08/2011 07/10/19 22 Constipation 07/26/2011 11/08/2011 documented as of this encounter (statuses as of 12/08/2021) [facility] Narrative* Problem Noted Date Resolved Date Short stature 04/01/2013 07/09/2021 Overview: April 01, 2013 - bone age is delayed Fracture of left distal radius 04/16/2012 0 06/15/2012 Fracture of radius, distal, right, closed 201104/16/2012 Poor weight gain (0-17) 11/08/2011 07/10/19 22 Constipation 07/26/2011 11/08/2011 documented as of this encounter (statuses as of 12/23/2021) [facility] Narrative* Problem Noted Date Resolved Date Short stature 04/01/2013 07/09/2021 Overview: April 01, 2013 - bone age is delayed Fracture of left distal radius 04/16/2012 0 06/15/2012 Fracture of radius, distal, right, closed 201104/16/2012 Poor weight gain (0-17) 11/08/2011 07/10/19 22 Constipation 07/26/2011 11/08/2011 documented as of this encounter (statuses as of 12/28/2021) [facility] Narrative* Problem Noted Date Resolved Date Short stature 04/01/2013 07/09/2021 Overview: April 01, 2013 - bone age is delayed Fracture of left distal radius 04/16/2012 0 06/15/2012 Fracture of radius, distal, right, closed 201104/16/2012 Poor weight gain (0-17) 11/08/2011 07/10/19 22 Constipation 07/26/2011 11/08/2011 documented as of this encounter (statuses as of 01/06/2022) [facility] Narrative* Problem Noted Date Resolved Date Short stature 04/01/2013 07/09/2021 Overview: April 01, 2013 - bone age is delayed Fracture of left distal radius 04/16/2012 0 06/15/2012 Fracture of radius, distal, right, closed 201104/16/2012 Poor weight gain (0-17) 11/08/2011 07/10/19 22 Constipation 07/26/2011 11/08/2011 documented as of this encounter (statuses as of 01/21/2022) [facility] Narrative* Problem Noted Date Resolved Date Short stature 04/01/2013 07/09/2021 Overview: April 01, 2013 - bone age is delayed Fracture of left distal radius 04/16/2012 0 06/15/2012 Fracture of radius, distal, right, closed 201104/16/2012 Poor weight gain (0-17) 11/08/2011 07/10/19 22 Constipation 07/26/2011 11/08/2011 documented as of this encounter (statuses as of 01/24/2022) [facility] Narrative* Problem Noted Date Resolved Date Short stature 04/01/2013 07/09/2021 Overview: April 01, 2013 - bone age is delayed Fracture of left distal radius 04/16/2012 0 06/15/2012 Fracture of radius, distal, right, closed 201104/16/2012 Poor weight gain (0-17) 11/08/2011 07/10/19 22 Constipation 07/26/2011 11/08/2011 documented as of this encounter (statuses as of 01/25/2022) [facility] Narrative* Problem Noted Date Resolved Date Short stature 04/01/2013 07/09/2021 Overview: April 01, 2013 - bone age is delayed Fracture of left distal radius 04/16/2012 0 06/15/2012 Fracture of radius, distal, right, closed 201104/16/2012 Poor weight gain (0-17) 11/08/2011 07/10/19 22 Constipation 07/26/2011 11/08/2011 documented as of this encounter (statuses as of 01/28/2022) [facility] Narrative* Problem Noted Date Resolved Date Short stature 04/01/2013 07/09/2021 Overview: April 01, 2013 - bone age is delayed Fracture of left distal radius 04/16/2012 0 06/15/2012 Fracture of radius, distal, right, closed 201104/16/2012 Poor weight gain (0-17) 11/08/2011 07/10/19 22 Constipation 07/26/2011 11/08/2011 documented as of this encounter (statuses as of 02/24/2022) [facility] Narrative* Problem Noted Date Resolved Date Short stature 04/01/2013 07/09/2021 Overview: April 01, 2013 - bone age is delayed Fracture of left distal radius 04/16/2012 0 06/15/2012 Fracture of radius, distal, right, closed 201104/16/2012 Poor weight gain (0-17) 11/08/2011 07/10/19 22 Constipation 07/26/2011 11/08/2011 documented as of this encounter (statuses as of 06/30/2022) [facility] Narrative* Problem Noted Date Resolved Date Short stature 04/01/2013 07/09/2021 Overview: April 01, 2013 - bone age is delayed Fracture of left distal radius 04/16/2012 0 06/15/2012 Fracture of radius, distal, right, closed 201104/16/2012 Poor weight gain (0-17) 11/08/2011 07/10/19 22 Constipation 07/26/2011 11/08/2011 documented as of this encounter (statuses as of 07/01/2022) [facility] Narrative* Problem Noted Date Resolved Date Short stature 04/01/2013 07/09/2021 Overview: April 01, 2013 - bone age is delayed Fracture of left distal radius 04/16/2012 0 06/15/2012 Fracture of radius, distal, right, closed 201104/16/2012 Poor weight gain (0-17) 11/08/2011 07/10/19 22 Constipation 07/26/2011 11/08/2011 documented as of this encounter (statuses as of 09/13/2022) [facility] Narrative* Problem Noted Date Resolved Date Short stature 04/01/2013 07/09/2021 Overview: April 01, 2013 - bone age is delayed Fracture of left distal radius 04/16/2012 0 06/15/2012 Fracture of radius, distal, right, closed 201104/16/2012 Poor weight gain (0-17) 11/08/2011 07/10/19 22 Constipation 07/26/2011 11/08/2011 documented as of this encounter (statuses as of 10/26/2022) [facility] Narrative* Problem Noted Date Diagnosed Date Resolved Date Short stature 04/01/2013 07/09/2021 Overview: April 01, 2013 - bone age is delayed Fracture of left distal radius 04/16/2012 06/15/2012 Fracture of radius, distal, right, closed 03/31/2012 04/16/2012 Poor weight gain (0-17) 11/08/2011 03/0 08/2021 Constipation 07/26/2011 11/08/2011 documented as of this encounter (statuses as of 01/19/2023) [facility] Narrative* Problem Noted Date Diagnosed Date Resolved Date Short stature 04/01/2013 07/09/2021 Overview: April 01, 2013 - bone age is delayed Fracture of left distal radius 04/16/2012 06/15/2012 Fracture of radius, distal, right, closed 03/31/2012 04/16/2012 Poor weight gain (0-17) 11/08/2011 03/0 08/2021 Constipation 07/26/2011 11/08/2011 documented as of this encounter (statuses as of 01/25/2023) [facility] Narrative* Problem Noted Date Diagnosed Date Resolved Date Short stature 04/01/2013 07/09/2021 Overview: April 01, 2013 - bone age is delayed Fracture of left distal radius 04/16/2012 06/15/2012 Fracture of radius, distal, right, closed 03/31/2012 04/16/2012 Poor weight gain (0-17) 11/08/2011 03/0 08/2021 Constipation 07/26/2011 11/08/2011 documented as of this encounter (statuses as of 02/28/2023) [facility] Narrative* Problem Noted Date Diagnosed Date Resolved Date Short stature 04/01/2013 07/09/2021 Overview: April 01, 2013 - bone age is delayed Fracture of left distal radius 04/16/2012 06/15/2012 Fracture of radius, distal, right, closed 03/31/2012 04/16/2012 Poor weight gain (0-17) 11/08/2011 03/0 08/2021 Constipation 07/26/2011 11/08/2011 documented as of this encounter (statuses as of 03/29/2023) [facility] Narrative* Problem Noted Date Diagnosed Date Resolved Date Short stature 04/01/2013 07/09/2021 Overview: April 01, 2013 - bone age is delayed Fracture of left distal radius 04/16/2012 06/15/2012 Fracture of radius, distal, right, closed 03/31/2012 04/16/2012 Poor weight gain (0-17) 11/08/2011 03/0 08/2021 Constipation 07/26/2011 11/08/2011 documented as of this encounter (statuses as of 04/21/2023) [facility] Narrative* Problem Noted Date Diagnosed Date Resolved Date Short stature 04/01/2013 07/09/2021 Overview: April 01, 2013 - bone age is delayed Fracture of left distal radius 04/16/2012 06/15/2012 Fracture of radius, distal, right, closed 03/31/2012 04/16/2012 Poor weight gain (0-17) 11/08/2011 03/0 08/2021 Constipation 07/26/2011 11/08/2011 documented as of this encounter (statuses as of 06/26/2023) [facility] Narrative* Problem Noted Date Diagnosed Date Resolved Date Short stature 04/01/2013 07/09/2021 Overview: April 01, 2013 - bone age is delayed Fracture of left distal radius 04/16/2012 06/15/2012 Fracture of radius, distal, right, closed 03/31/2012 04/16/2012 Poor weight gain (0-17) 11/08/2011 03/08/2021 Constipation 07/26/2011 11/08/2011 documented as of this encounter (statuses as of 07/05/2023) [facility] Author Arnoldo Harding [facility] January 30, 2023 8:53am Note Date/Time January 30, 2023 8:51am [facility] Medical Records Department [address] [place] [address] Emergency Department Summary 01/30/23 MR#: [id number] Acct: [id number] Name: NAN MEYERS Rep #:[id number] : [...] as well. She does not see an CARPENTER REFRIGERATOR regularly but wants to start control again. [facility] Medical History ADHD Anxiety Hemoperitoneum [...] was also recommended to follow-up with an CARPENTER REFRIGERATOR. She was given the number to the [place] [facility] on-call at her request. I feel [...] positive home , and follow-up with an CARPENTER REFRIGERATOR soon as possible. Return instructions to the [...] Rivas MD [Primary Care Provider] - Nereida Chou MD [Med Staff - Active Staff] - As soon as possible Disposition Disposition: Home, Self Care What to do if you have Problems For any increased pain, shortness of breath, bleeding, nausea or vomiting, chestpain, or any unexpected problems, contact your Primary Care Provider. Call [facility] ([phone]) or report to the closest Emergency Room. Call 911 if necessary. 01/30/23 0853 <Electronically signed by Arnoldo Harding MD> Cosigner Signature (if applicable): CC: Dr. Unique Rivas MD ~ Signed [facility] Work Phone: Evaluation note* Diagnosis Toothache- Primary Unspecified disorder of the teeth and supporting structures [facility] Attention deficit hyperactivity disorder (ADHD), unspecified ADHD type- Primary [facility] Diagnosis Attention deficit hyperactivity disorder (ADHD), unspecified ADHD type [facility] Diagnosis Attention deficit hyperactivity disorder (ADHD), unspecified ADHD type [facility] Diagnosis Attention deficit hyperactivity disorder (ADHD), predominantly inattentive type- Primary Anxiety Anxiety state, unspecified [facility] Diagnosis Suspected 2019 novel coronavirus infection- Primary [facility] Diagnosis Attention deficit hyperactivity disorder (ADHD), unspecified ADHD type [facility]* Diagnosis Attention deficit hyperactivity disorder (ADHD), unspecified ADHD type [facility]* Diagnosis Encounter for immunization- Primary Need for other specified prophylactic vaccination against single bacterial disease [facility] Diagnosis Encounter for PPD skin test reading- Primary Other follow-up examination Screening-pulmonary TB Screening examination for pulmonary tuberculosis [facility] Diagnosis Encounter for PPD skin test reading- Primary Other follow-up examination [facility]* Diagnosis Attention deficit hyperactivity disorder (ADHD), unspecified ADHD type [facility]* Diagnosis Encounter for screening laboratory testing for COVID-19 virus- Primary [facility] Diagnosis URI, acute- Primary Acute upper respiratory infections of unspecified site Pharyngitis, unspecified etiology [facility]* Diagnosis Fluid level behind tympanic membrane of right ear- Primary Headache, unspecified headache type [facility]* Diagnosis Costochondritis- Primary Tietze's disease documented in this encounter [facility] note* Diagnosis Nausea vomiting and diarrhea- Primary Diarrhea documented in this encounter [facility] noteNo assessment information availableWSelect Medical [facility] Work Phone: Evaluation note* Diagnosis Onset Date Resolution Status Contraception management acu te Contraception management acu te [facility] Work Phone: Evaluation note* Diagnosis Nausea- Primary Nausea alone documented in this encounter [facility] note* Diagnosis Wellness examination- Primary documented in this encounter [facility] note* Diagnosis Acute hip pain, right- Primary documented in this encounter [facility] note* Diagnosis Exposure to SARS-associated coronavirus- Primary documented in this encounter [facility] note* Diagnosis Acute otitis media, left- Primary Unspecified otitis media Sore throat Acute pharyngitis documented in this encounter [facility] note* Diagnosis Wellness examination- Primary documented in this encounter [facility] note* Diagnosis Pain of right lower extremity- Primary documented in this encounter [facility] note* Diagnosis Headache, unspecified headache type- Primary documented in this encounter [facility] note* Diagnosis URI, acute- Primary Acute upper respiratory infections of unspecified site documented in this encounter [facility] note* Diagnosis Wellness examination- Primary Family history of hypothyroidism Family history of other endocrine and metabolic diseases Right leg pain Pain in limb documented in this encounter [facility] note* Diagnosis Flu-like symptoms- Primary Other general symptoms documented in this encounter [facility] note* Diagnosis Sore throat- Primary Acute pharyngitis Acute pharyngitis, unspecified etiology documented [facility]* Diagnosis Rhinosinusitis- Primary Unspecified sinusitis (chronic) documented in this encounter [facility]* Diagnosis Screening-pulmonary TB- Primary Screening examination for pulmonary tuberculosis documented in this encounter [facility] Discharge instructions* Attachments The following attachments cannot be sent through Care Everywhere. * : When to Call (After 20 Weeks): General Info (Bhutanese) * Round Ligament Pain (Bhutanese) * : Abdominal Pain (Bhutanese) [facility] Author Glendy Arvizu [facility] Note Date/Time November 14, 2024 12:0 3pm [facility] [address], [address] [place] [address] OFFICE VISIT Date of Service: 11/14/24 MR#: [id number] Acct: [id number] Name: NAN MEYERS Rep #: [id number] : 2000 Provider: NURYS Arvizu Age/Sex: 24/F [place] [facility] [place] Signed Intake Vital Signs 09/16/24 11:33 11/02/24 09:08 11/14/24 11:40 Height 5 ft 5 ft 5 ft Weight: 143 lb 8 oz BMI 28.0 BP 128/71 H Intake Visit Reasons: 17wk ob Chief Complaint: 17wk OB Template Fitter Required: No Is patient in pain?: No [...] current occupational status: employed current occupation: [employer] current occupational exposures/hazards: No pets and animals: [...] physical activity do you participate in: none christopher/sikh: None seatbelt use: always do you feel safe at home: Yes additional social history: BF: [employer] - [employer] History 2 Elective abortions Hx Para 0 [...] is considering moving to a practice in [place] due to moving to that area. ACOG [...] + @ NOB. Treated and vomited med. [place] [facility] sent and zofram prior. (2) History of ectopic : Status: Acute Comment: 09/08/20 - surgery by SM, was in right ovary and still has both tubes. (3) Supervision of high-risk : Status: Acute Qualifiers: Trimester: second trimester Qualified Code(s): O09.92 - Supervision of high risk , unspecified, second trimester Comment: [id number], KELTON 04/23/25, BF: Fausto (4) : Status: [...] given. 11/14/24 1203 <Electronically signed by Glendy Collin s CNM> Date _ Glendy Pleitezer Signature: Date (if applicable) CC: ~ [facility] Work Phone: Progress note Author Nereida Chou [facility] Note Date/Time January 09, 2025 11:04am [facility] [address], [address] [place] [address] OFFICE VISIT Date of Service: 01/09/25 MR#: [id number] Acct: [id number] Name: NAN MEYERS Rep #: [id number] : 2000 Provider: Dr. Greg Chou MD Age/Sex: 24/F [place] [facility] [place]: Signed Intake Vital Signs 10/15/24 08:32 12/12/24 13:48 01/09/25 10:32 Height 5 ft 5 ft 5 ft Weight: 160 lb 9 oz BMI 31.4 BP 116/70 Intake Visit Reasons: 25 wk ob Template Fitter Required: No Is patient in pain?: No [...] baby current occupational status: employed current occupation: [employer] current occupational exposures/hazards: No pets and animals: [...] physical activity do you participate in: none christopher/sikh: None seatbelt use: always do you feel safe at home: Yes additional social history: BF: [employer] - [employer] History 2 Elective abortions Hx Para 0 [...] is considering moving to a practice in [place] due to moving to that area. 12/12/24 -?-?-?-?-?-?-?-?-?-?-?-?- 21w 1d 154 lb 6 oz 118/66 Nega tive -?-?-?-?-?-?-?-?-?-?-?-?- Negative 145 -?-?-?-?-?-?-?-?-?-?-?-?- JV- still having some spotting. anatomy shows clot at the lower uterine segment. She will need to return for further views and for cervical length. She denies cramping. Starting to feel some small movements and "shifts" 01/09/25 -?-?-?-?-?-?-?-?-?-?-?-?- 25w 1d 160 lb 9 [...] Monitoring, Signs and Symptoms of Preeclampsia and [place] Education Results POC Urinalysis 2 Dip (Clinic) [...] + @ NOB. Treated and vomited med. [place] Rx sent and zofram prior. (2) History of ectopic : Status: Acute Comment: 09/08/20 - surgery by , was in right ovary and still has both tubes. (3) Supervision of high-risk : Status: Acute Qualifiers: Trimester: second trimester Qualified Code(s): O09.92 - Supervision of high risk , unspecified, second trimester Comment: [id number], KELTON 04/23/25, BF: [employer] (4) : Status: Acute Qualifiers: Weeks of [...] disorder, unspecified type Comment: No meds currently; [employer] in [employer] school Orders: Orders POC Urinalysis 2 Dip (Clinic) Today O09. - Supervision of high risk , unspecified, [...] second trimester 01/09/25 1104 <Electronically signed by Nereida stover MD> Date _ Nereida Chou MD [facility] Signature: Date (if applicable) CC: ~ [facility] Work Phone: Progress note Author Negrita Vital [facility] Note Date/Time January 27, 2025 10:01am [facility] [address], [address] [place] [address] OFFICE VISIT Date of Service: 01/27/25 MR#: [id number] Acct: [id number] Name: NAN MEYERS Rep #: [id number] : 2000 Provider: DEBORAH Vital Age/Sex: 25/F [place] [facility] [place]: Signed Intake Vital Signs 12/12/24 13:21 12/12/24 13:48 01/09/25 10:32 01/27/25 09:50 Height 5 ft 5 ft 5 ft 5 ft Weight: 160 lb 9 oz 162 lb 3 oz BMI 31.4 31.6 BP 116/70 122/71 H Intake Visit Reasons: 28 WK OB/GLUCOSE Template Fitter Required: No Is patient in pain?: No Allergies No Known Allergies Allergy (Verified 01/27/25 09:49) Medications ?Medication ?Instructions ?Recorded ?Confirmed ?Type docosahexaenoic acid 200 mg mg PO 08/27/24 01/27/25 Hi story capsule ( DHA) ondansetron HCl 4 mg tablet 4 mg PO Q4H #60 tabs 10/1001/27/25 Rx Last Menstrual Period: 07/17/24 Zika: Zika virus screening: Negative : No Have you fallen in the past year?: No PFSH PFSH Medical History ADHD Anxiety , ectopic, tubal Surgical History History of ectopic Family History Mother Thyroid disorder Adopted Hypertension Hyperlipidemia Grandmother Hypertension Grandfather Hypertension Father Asthma Social History adopted: No household members: significant other and other details: Brother & his baby current occupational status: employed current occupation: [employer] current occupational exposures/hazards: No pets and animals: [...] physical activity do you participate in: none christopher/sikh: None seatbelt use: always do you feel safe at home: Yes additional social history: BF: Fausto - [employer] Assistant History 2 Elective abortions Hx Para 0 Spontaneous abortions 0 Hx # Term Pregnancies Ectopic pregnancies 1 Hx # Pregnancies Multiple births # of living children 0 Past Pregnancies Del. Date Name GA/Weeks Outcome Route Bth Weight Infant Gen Labor Lgth Anesthesia Del Locatn Provider FOB 09/08/20 4 ectopic SM Delivery Date: 09/08/20 Last Updated by: Farzaneh Deal RN Right ovarian tubal HPI 28 WK OB/GLUCOSE Details: NAN MEYERS is a 25 year old who presents for routine OB visit. OB Visit [facility] Calculator Estimated Delivery Date Method Current WG Current Estimate 04/23/25 LMP (Certain) 27w 5d Other Estimates 04/23/25 Ultrasound #1 27w 5d Expected Delivery Route/Plan Labor Preferences- CB/BF classes: encouraged labor support person: Fausto labor intervention preferences: [] pain management options preferred: epidural cut cord/dad catch: cord : yes PP control planned: discussed discussed possible routes of delivery and associated risks: [] special requests: [] Specific Issue/Plans Covid status: [] Flu vaccine: [] Tdap vaccine: [] Rhogam: NA LARC form signed: yes Problem list reviewed and updated with the [...] is considering moving to a practice in [place] due to moving to that area. 12/12/24 -?-?-?-?-?-?-?-?-?-?-?-?- 21w 1d 154 lb 6 oz 118/66 Nega tive -?-?-?-?-?-?-?-?-?-?-?-?- Negative 145 -?-?-?-?-?-?-?-?-?-?-?-?- JV- still having some spotting. anatomy shows clot at the lower uterine segment. She will need to return for further views and for cervical length. She denies cramping. Starting to feel some small movements and "shifts" 01/09/25 -?-?-?-?-?-?-?-?-?-?-?-?- 25w 1d 160 lb 9 oz 116/70 Nega tive -?-?-?-?-?-?-?-?-?-?-?-?- Negative 140 25 -?-?-?-?-?-?-?-?-?-?-?-?- SM- no vb feels damp sometimes over the past two weeks good fm. SM- no vb feels damp sometim es over the past two weeks good fm. ROM plus sent 01/27/25 -?-?-?-?-?-?-?-?-?-?-?-?- 27w 5d 162 lb 3 oz 122/71 Nega tive -?-?-?-?-?-?-?-?-?-?-?-?- Negative 143 28 -?-?-?-?-?-?-?-?-?-?-?-?- MH-No VB, LOF. G ood FM. Larc. Missed GCT draw time and will return later this week to complete ACOG First Trimester First Trimester: Desire for [...] Monitoring, Signs and Symptoms of Preeclampsia and Education ROS Const Reports system reviewed and no additional complaints, except as documented GI Denies abdominal pain, Denies nausea and Denies vomiting Exam Const General: cooperative Nutritional Appearance: well nourished GI Palpation: soft, nontender and other (gravid) Results POC Urinalysis 2 Dip (Clinic) Office Urine Glucose Negative Last Edit by Rebecca Leo on 01/27/25 10:03 Office Urine Protein Negative Last Edit by Rebecca Leo on 01/27/25 10:03 Coding Level of Care Code Off vis,est,level 3 Diagnoses Supervision of high risk in second trimester O09.92 Trimester: second trimester 27 weeks gestation of Z3A.27 Weeks of gestation: 27 weeks Chlamydia infection affecting in first trimester O98.811; A74.9 Trimester: first trimester History of ectopic Z87.59 Smoker F17.200 Anxiety F41.9 Attention deficit hyperactivity disorder (ADHD), unspecified ADHD type F90.9 Attention deficit-hyperactivity disorder type: unspecified Assessment and Plan Assessment and Plan (1) Supervision of high-risk : Status: Acute Qualifiers: Trimester: second trimester Qualified Code(s): O09.92 - Supervision of high risk , unspecified, second trimester Comment: [id number], KELTON 04/23/25, BF: Fausto (2) : Status: Acute Qualifiers: Weeks of gestation: 27 weeks Qualified Code(s): Z3A.27 - 27 weeks gestation of Comment: NIPT low risk, growth nl. MIKHAIL slightly smaller. US in 4 weeks. (3) Chlamydia infection affecting : Status: Acute Qualifiers: Trimester: first trimester Qualified Code(s): O98.811 - Other maternal infectious and parasitic diseases complicating , first trimester; A74.9 - Chlamydial infection, unspecified Comment: + @ NOB. Treated and vomited med. [place] Rx sent and zofram prior. Rpt test negative (4) History of ectopic : Status: Acute Comment: 09/08/20 - surgery by , was in right ovary and still has both tubes. (5) Smoker: Status: Acute Comment: Last smoke: 08/25, Exposed to second hand (6) Anxiety: Status: Acute Comment: No meds; stable (7) ADHD: Status: Acute Qualifiers: Attention deficit-hyperactivity disorder type: unspecified Qualified Code(s): F90.9 - Attention-deficit hyperactivity disorder, unspecified type Comment: No meds currently; [employer]yvanse in high school Orders: Orders POC Urinalysis 2 Dip (Clinic) Today Plan problem list reviewed and updated for most current plan of care and appropriate orders placed. Relevant counseling for the gestational age appropriate provided and ACOG education checklist updated. Continue routine care and follow up. Clinical Quality Measures Falls Risk Screening/Assistive Devices Have you fallen in the past year?: No 01/27/25 1004 <Electronically signed by Negrita acosta [employer]> Date _ Negrita Vital [employer] Cosigner Signature: Date (if applicable) CC: ~ [facility] Work Phone: Reason for referral (narrative)No reason for referral information availableWSelect [facility] Work Phone: Health Concerns Infection Onset [...] 11:29 am History of ectopic September 16, 2 025 11:29am September 16, 2024 11:29 am [...] 2024 1:0 3pm Supervision of high-risk Augus 2024 1:03pm ADHD January 09, 2025 10:18am Anxiety January 09, 2025 10:18am Chlamydia infection affecting January 09, 2025 10:18am History of ectopic January 092024 10:18am January 09, 2025 10:18am Smoker January 09, 2025 10:18am Supervision of high-risk Septe mb2024 10:18am Chief Complaint Admit Date 13wk ob October 15, 2024 8:30 am vag bleed preg November 02, 2024 9:07 am 17wk ob November 14, 2024 11:3 1am 21wk ob December 12, 2024 1:0 3pm 25 wk ob January 09, 2025 10:18am 28 WK OB/GLUCOSE January 27, 2025 9:44am Reason for Visit Admit Date ADHD October 15, 2024 8:30 am Anxiety [...] January 09, 2025 10:18am Supervision of high-risk Septe 2024 10:18am ADHD January 27, 2025 9:44am Anxiety January 27, 2025 9:44am Chlamydia infection affecting January 27, 2025 9:44am History of ectopic January 072024 9:44am January 27, 2025 9:44am Smoker January 27, 2025 9:44am Supervision of high-risk Septe [facility] 2024 9:44am Chief Complaint Admit Date 13wk ob October 15, 2024 8:30 am vag bleed preg November 02, 2024 9:07 am 17wk ob November 14, 2024 11:3 1am 21wk ob December 12, 2024 1:0 3pm 25 wk ob January 09, 2025 10:18am 28 WK OB/GLUCOSE January 27, 2025 9:44am 30 WK OB February 10, 2025 2: 15pm Reason for Visit Admit Date ADHD October 15, 2024 8:30 am Anxiety [...] January 09, 2025 10:18am [facility] 10[facility] ADHD January 27, 2025 9:44am Anxiety January 27, 2025 9:44am Chlamydia infection affecting January 27, 2025 9:44am History of ectopic January 072024 9:44am January 27, 2025 9:44am Smoker January 27, 2025 9:44am Supervision of high-risk Septe [facility] 2024 9:44am ADHD February 10, 2025 2: 15pm Anemia affecting February 10, 2025 2:15pm Anxiety February 10, 2025 2: 15pm Chlamydia infection affecting February 10, 2025 2:15pm History of ectopic February 2:15pm February 10, 2025 2: 15pm Smoker February 10, 2025 2: 15pm Supervision of high-risk Octob 2024 2:15pm Advance Directives No Advanced Directives Records Found Advance Directive Response Recorded Date/ Time Living Will No January 30, 2023 8:43am Power of Bottle House Cleaners Supervisor No January 8:43am Advance Directive Response Recorded Date/ Time Do you have a Healthcare Power of Bottle House Cleaners Supervisor? No November 02, 2024 9:36am Reason for Referral Specialty Diagnoses / Procedures Referred By Contac t Referred To Contact [facility] Diagnoses Right leg pain Procedures CONSULT TO PHYSICAL THERAPY PHYSICAL THERAPY EVALUATION HIGH COMPLEX 45 MINS Marisa William, LUIS CARLOS.[employer] [address] [place] [address] [facility] [place] [address] [place] [address] Referral ID Status Reason Start Date Expiration Date Visits Requested Visits Authorized [id number] Pending Review Auto-Generat ed Referral 05/10/2024 05/10/2025 [...] or prosecute any alcohol or drug abuse patient.[facility] the event this information is protected by the Federal Confidentiality of Alcohol and Drug Abuse Patient Records regulations: The Federal rules restrict any use of the information to criminally investigate or prosecute any alcohol or drug abuse patient.[facility] HospitalIn the event this information is protected by the Federal Confidentiality of Alcohol and Drug Abuse Patient Records regulations: The Federal rules restrict any use of the information to criminally investigate or prosecute any alcohol or drug abuse patient.[facility] HospitalIn the event this information is protected by the Federal Confidentiality of Alcohol and Drug Abuse Patient Records regulations: The Federal rules restrict any use of the information to criminally investigate or prosecute any alcohol or drug abuse patient.[facility] HospitalIn the event this information is protected by the Federal Confidentiality of Alcohol and Drug Abuse Patient Records regulations: The Federal rules restrict any use of the information to criminally investigate or prosecute any alcohol or drug abuse patient.[facility] HospitalIn the event this information is protected by the Federal Confidentiality of Alcohol and Drug Abuse Patient Records regulations: The Federal rules restrict any use of the information to criminally investigate or prosecute any alcohol or drug abuse patient.[facility] HospitalIn the event this information is protected by the Federal Confidentiality of Alcohol and Drug Abuse Patient Records regulations: The Federal rules restrict any use of the information to criminally investigate or prosecute any alcohol or drug abuse patient.[facility] HospitalIn the event this information is protected by the Federal Confidentiality of Alcohol and Drug Abuse Patient Records regulations: The Federal rules restrict any use of the information to criminally investigate or prosecute any alcohol or drug abuse patient.[facility] HospitalIn the event this information is protected by the Federal Confidentiality of Alcohol and Drug Abuse Patient Records regulations: The Federal rules restrict any use of the information to criminally investigate or prosecute any alcohol or drug abuse patient.[facility] HospitalIn the event this information is protected by the Federal Confidentiality of Alcohol and Drug Abuse Patient Records regulations: The Federal rules restrict any use of the information to criminally investigate or prosecute any alcohol or drug abuse patient.[facility] HospitalIn the event this information is protected by the Federal Confidentiality of Alcohol and Drug Abuse Patient Records regulations: The Federal rules restrict any use of the information to criminally investigate or prosecute any alcohol or drug abuse patient.[facility] HospitalIn the event this information is protected by the Federal Confidentiality of Alcohol and Drug Abuse Patient Records regulations: The Federal rules restrict any use of the information to criminally investigate or prosecute any alcohol or drug abuse patient.[facility] HospitalIn the event this information is protected by the Federal Confidentiality of Alcohol and Drug Abuse Patient Records regulations: The Federal rules restrict any use of the information to criminally investigate or prosecute any alcohol or drug abuse patient.[facility] HospitalIn the event this information is protected by the Federal Confidentiality of Alcohol and Drug Abuse Patient Records regulations: The Federal rules restrict any use of the information to criminally investigate or prosecute any alcohol or drug abuse patient.[facility] HospitalIn the event this information is protected by the Federal Confidentiality of Alcohol and Drug Abuse Patient Records regulations: The Federal rules restrict any use of the information to criminally investigate or prosecute any alcohol or drug abuse patient.[facility] HospitalIn the event this information is protected by the Federal Confidentiality of Alcohol and Drug Abuse Patient Records regulations: The Federal rules restrict any use of the information to criminally investigate or prosecute any alcohol or drug abuse patient.[facility] HospitalIn the event this information is protected by the Federal Confidentiality of Alcohol and Drug Abuse Patient Records regulations: The Federal rules restrict any use of the information to criminally investigate or prosecute any alcohol or drug abuse patient.[facility] HospitalIn the event this information is protected by the Federal Confidentiality of Alcohol and Drug Abuse Patient Records regulations: The Federal rules restrict any use of the information to criminally investigate or prosecute any alcohol or drug abuse patient.[facility] HospitalIn the event this information is protected by the Federal Confidentiality of Alcohol and Drug Abuse Patient Records regulations: The Federal rules restrict any use of the information to criminally investigate or prosecute any alcohol or drug abuse patient.[facility] HospitalIn the event this information is protected by the Federal Confidentiality of Alcohol and Drug Abuse Patient Records regulations: The Federal rules restrict any use of the information to criminally investigate or prosecute any alcohol or drug abuse patient.[facility] HospitalIn the event this information is protected by the Federal Confidentiality of Alcohol and Drug Abuse Patient Records regulations: The Federal rules restrict any use of the information to criminally investigate or prosecute any alcohol or drug abuse patient.[facility] HospitalIn the event this information is protected by the Federal Confidentiality of Alcohol and Drug Abuse Patient Records regulations: The Federal rules restrict any use of the information to criminally investigate or prosecute any alcohol or drug abuse patient.[facility] HospitalIn the event this information is protected by the Federal Confidentiality of Alcohol and Drug Abuse Patient Records regulations: The Federal rules restrict any use of the information to criminally investigate or prosecute any alcohol or drug abuse patient.[facility] HospitalIn the event this information is protected by the Federal Confidentiality of Alcohol and Drug Abuse Patient Records regulations: The Federal rules restrict any use of the information to criminally investigate or prosecute any alcohol or drug abuse patient.[facility] HospitalIn the event this information is protected by the Federal Confidentiality of Alcohol and Drug Abuse Patient Records regulations: The Federal rules restrict any use of the information to criminally investigate or prosecute any alcohol or drug abuse patient.[facility] HospitalIn the event this information is protected by the Federal Confidentiality of Alcohol and Drug Abuse Patient Records regulations: The Federal rules restrict any use of the information to criminally investigate or prosecute any alcohol or drug abuse patient.[facility] HospitalIn the event this information is protected by the Federal Confidentiality of Alcohol and Drug Abuse Patient Records regulations: The Federal rules restrict any use of the information to criminally investigate or prosecute any alcohol or drug abuse patient.[facility] HospitalIn the event this information is protected by the Federal Confidentiality of Alcohol and Drug Abuse Patient Records regulations: The Federal rules restrict any use of the information to criminally investigate or prosecute any alcohol or drug abuse patient.[facility] HospitalIn the event this information is protected by the Federal Confidentiality of Alcohol and Drug Abuse Patient Records regulations: The Federal rules restrict any use of the information to criminally investigate or prosecute any alcohol or drug abuse patient.[facility] HospitalIn the event this information is protected by the Federal Confidentiality of Alcohol and Drug Abuse Patient Records regulations: The Federal rules restrict any use of the information to criminally investigate or prosecute any alcohol or drug abuse patient.[facility] HospitalIn the event this information is protected by the Federal Confidentiality of Alcohol and Drug Abuse Patient Records regulations: The Federal rules restrict any use of the information to criminally investigate or prosecute any alcohol or drug abuse patient.[facility] HospitalIn the event this information is protected by the Federal Confidentiality of Alcohol and Drug Abuse Patient Records regulations: The Federal rules restrict any use of the information to criminally investigate or prosecute any alcohol or drug abuse patient.[facility] HospitalIn the event this information is protected by the Federal Confidentiality of Alcohol and Drug Abuse Patient Records regulations: The Federal rules restrict any use of the information to criminally investigate or prosecute any alcohol or drug abuse patient.[facility] HospitalIn the event this information is protected by the Federal Confidentiality of Alcohol and Drug Abuse Patient Records regulations: The Federal rules restrict any use of the information to criminally investigate or prosecute any alcohol or drug abuse patient.[facility] HospitalIn the event this information is protected by the Federal Confidentiality of Alcohol and Drug Abuse Patient Records regulations: The Federal rules restrict any use of the information to criminally investigate or prosecute any alcohol or drug abuse patient.[facility] HospitalIn the event this information is protected by the Federal Confidentiality of Alcohol and Drug Abuse Patient Records regulations: The Federal rules restrict any use of the information to criminally investigate or prosecute any alcohol or drug abuse patient.[facility] HospitalIn the event this information is protected by the Federal Confidentiality of Alcohol and Drug Abuse Patient Records regulations: The Federal rules restrict any use of the information to criminally investigate or prosecute any alcohol or drug abuse patient.[facility] HospitalIn the event this information is protected by the Federal Confidentiality of Alcohol and Drug Abuse Patient Records regulations: The Federal rules restrict any use of the information to criminally investigate or prosecute any alcohol or drug abuse patient.[facility] Reason for Visit (unrecogniz ed section [...] negate pet fees Reason Onset Date Comments [facility] COVID Outreach 12/01/2021 Reason Onset Date Comments [...] x1 d ay. Reason Onset Date Comments [facility] COVID Outreach 06/30/2022 Reason Comments Sore Throat [...] h ome and measured HR as 55 Reason Comments Decreased Movement Pt states decre ased movement since last night. She hasn't completely stopped moving, just less than normal". Pt denies vaginal bleeding, leaking fluid, dysuria, cramping, n/v. Specialty Diagnoses / Procedures Referred By Viry t Referred To Contact Cher Schultz MD [address] [place] [address] Phone: tel: fax: [address] [address] Referral ID Status Reason Start Date Expiration Date Visits Re quested Visits Authorized [id number] Care Teams (unrecognized sec tion and content) [employer] Vat Tender Relationship Specialty [place] [address] [place] [id number] PCP - General Pediatrics 07/22/13 [employer] Vat Tender Relationship Specialty Start Date End Date Unique Rivas MD [address] [place] [address] PCP - General Pediatrics 07/22/13 [employer] Vat Tender Relationship Specialty Start Date End Date Unique Rivas MD [address] [place] [address] PCP - General Pediatrics 07/22/13 War[employer] Bleaching Vat Tender Relationship Specialty Start Date End Date Unique Rivas MD [address] [place] [address] PCP - General Pediatrics 07/22/13 Warp Bleaching Vat Tender Relationship Specialty Start Date End Date Unique Rivas MD [address] [place] [address] PCP - General Pediatrics 07/22/13 Warp Bleaching Vat Tender Relationship Specialty Start Date End Date Unique Rivas MD [address] [place] [address] PCP - General Pediatrics 07/22/13 Warp Bleaching Vat Tender Relationship Specialty Start Date End Date Unique Rivas MD [address] [place] [address] PCP - General Pediatrics 07/22/13 Warp Bleaching Vat Tender Relationship Specialty Start Date End Date Unique Rivas MD [address] [place] [address] PCP - General Pediatrics 07/22/13 Warp Bleaching Vat Tender Relationship Specialty Start Date End Date Unique Rivas MD [address] [place] [address] PCP - General Pediatrics 07/22/13 War[employer] Bleaching Vat Tender Relationship Specialty Start Date End Date Unique Rivas MD [address] [place] [address] PCP - General Pediatrics 07/22/13 [employer]aching Vat Tender Relationship Specialty Start Date End Date Unique Rivas MD [address] [place] [address] PCP - General Pediatrics 07/22/13 Team Status: [...] Provider, Refer ring Provider Active Negrita Vital [employer] Attending Provider Active Team Status: Inactive Member [...] CNM Attending Provider, Referring Pro vider Active [employer] Vat Tender Relationship Specialty Start Date End Date Unique Rivas MD [address] [place], [place] [address] PCP - General Pediatrics 07/22/13 [employer] Vat Tender Relationship Specialty Start Date End Date Unique Rivas MD [address] [place] [address] PCP - General Pediatrics 07/22/13 [employer] Bleaching Vat Tender Relationship Specialty Start Date End Date Unique Rivas MD [address] [place], [place] [id number] PCP - General Pediatrics 07/22/13 [employer]aching Vat Tender Relationship Specialty Start Date End Date Marisa William APRN.[employer] [address] [place] [address] PCP - General Family Medicine 08/30/23 [employer]aching Vat Tender Relationship Specialty Start Date End Date Marisa William APRN.[employer] [address] [place] [address] PCP - General Family Medicine 08/30/23 [employer]aching Vat Tender Relationship Specialty Start Date End Date Marisa William APRN.[employer] [address] [place], [place] [address] PCP - General Family Medicine 08/30/23 [employer]aching Vat Tender Relationship Specialty Start Date End Date Marisa William DOWEL PIN MAN.C[employer] [address] [place] [address] PCP - General Family Medicine 08/30/23 [employer] Bleaching Vat Tender Relationship Specialty Start Date End Date Marisa William, DOWEL [employer] MAN.CITY [employer] [address] [place] [address] PCP - General Family Medicine 08/30/23 War[employer] Bleaching Vat Tender Relationship Specialty Start Date End Date Marisa William, DOWEL [employer] MAN.CITY ALDERMAN [address] [facility] [place] [address] PCP - General Family Medicine 08/30/23 Warp Bleaching Vat Tender Relationship Specialty Start Date End Date Marisa William, D[employer] MAN.CITY [employer]DERMAN [address] [facility] [place] [address] PCP - General Family Medicine 08/30/23 Warp Bleaching Vat Tender Relationship Specialty Start Date End Date Marisa William, DOWEL [employer] MAN.CITY [employer]MAN [address] [facility] [place] [address] PCP - General Family Medicine 08/30/23 [employer] Bleaching Vat Tender Relationship Specialty Start Date End Date Marisa William, D[employer] MAN.CITY [employer] [address] [facility] [place] [address] PCP - General Family Medicine 08/30/23 Team Status: Active Member Role Status Dates Dr. Unique Rivas MD Primary Care Provider Active Team Status: Inactive Member Role Status Dates Dr. Unique Rivas MD Primary Care Provider Active Start: August 27, 2024 End: August 27, 2024 Dr. Unique Rivas MD Referring Provider Active Start: August 27, 2024 End: August 27, 2024 Dr. Nereida Chou MD Attending Provider Active Start: August 27, [...] 2024 End: September 16, 2024 Dr. Nereida Chou MD Attending Provider Active Start: September 16, 2024 End: September 16, 2024 Dr. Nereida Chou MD Referring Provider Active Start: September 16, 2024 End: September 16, 2024 Team Status: Inactive Member Role Status Dates Dr. Unique Rivas MD Primary Care Provider Active Start: October 02, 2024 End: October 02, 2024 Dr. Nereida Chou MD Attending Provider Active Start: October 02, 2024 End: October 02, 2024 Dr. Nereida Chou MD Referring Provider Active Start: October 02, 2024 End: October 02, 2024 Team Status: Inactive Member Role Status Dates Dr. Unique Rivas MD Primary Care Provider Active Start: October 15, 2024 End: October 15, 2024 Dr. Unique Rivas MD Referring Provider Active Start: October 15, 2024 End: October 15, 2024 Negrita Vital NP, [employer] Attending Provider Active Start: October 15, 2024 [...] 2024 End: August 27, 2024 Dr. Nereida Chou MD Attending Provider Active Start: August 27, [...] 2024 End: September 16, 2024 Dr. Nereida Chou MD Attending Provider Active Start: September 16, 2024 End: September 16, 2024 Dr. Nereida Chou MD Referring Provider Active Start: September 16, 2024 End: September 16, 2024 Team Status: Inactive Member Role/Relationship Status Dates Dr. Unique Rivas MD Primary Care Provider Active Start: October 02, 2024 End: October 02, 2024 Dr. Nereida Chou MD Attending Provider Active Start: October 02, 2024 End: October 02, 2024 Dr. Nereida Chou MD Referring Provider Active Start: October 02, 2024 End: October 02, 2024 Team Status: Inactive Member Role/Relationship Status Dates Dr. Unique Rivas MD Primary Care Provider Active Start: October 15, 2024 End: October 15, 2024 Dr. Unique Rivas MD Referring Provider Active Start: October 15, 2024 End: October 15, 2024 Negrita Vital NP, [employer] Attending Provider Active Start: October 15, 2024 [...] Inactive Member Role/Relationship Status Dates Marisa William [employer] Primary Care Provider Acti ve Start: November [...] 2024 End: September 16, 2024 Dr. Nereida Chou MD Attending Provider Active Start: September 16, 2024 End: September 16, 2024 Dr. Nereida Chou MD Referring Provider Active Start: September 16, 2024 End: September 16, 2024 Team Status: Inactive Member Role/Relationship Status Dates Dr. Unique Rivas MD Primary Care Provider Active Start: October 02, 2024 End: October 02, 2024 Dr. Nereida Chou MD Attending Provider Active Start: October 02, 2024 End: October 02, 2024 Dr. Nereida Chou MD Referring Provider Active Start: October 02, 2024 End: October 02, 2024 Team Status: Inactive Member Role/Relationship Status Dates Dr. Unique Rivas MD Primary Care Provider Active Start: October 15, 2024 End: October 15, 2024 Dr. Unique Rivas MD Referring Provider Active Start: October 15, 2024 End: October 15, 2024 Negrita Vital NP, [employer] Attending Provider Active Start: October 15, 2024 [...] 2025 End: January 09, 2025 Dr. Nereida Chou MD Attending Provider Active Start: January 09, 2025 End: January 09, 2025 Marisa William [employer] Primary Care Provider Acti ve Start: January 09, 2025 End: January 09, 2025 Team Status: Active Member Role/Relationship Status Dates Marisa William [employer] Primary care physician Act jenn Team Status: Inactive Member Role/Relationship Status Dates Dr. Unique Rivas MD Primary care physician Activ e Start: October 15, 2024 End: October 15, 2024 Dr. Unique Rivas MD Referring Provider Active Start: October 15, 2024 End: October 15, 2024 Negrita Vital NP, [employer] Attending physician Active Start: October 15, 2024 End: October 15, 2024 Team Status: Inactive Member Role/Relationship Status Dates Marisa William NP-C Primary care physician Act jenn Start: November 02, 2024 End: November 02, 2024 Dr. Mike Dill DO Attending physician Active Start: November 02, 2024 End: November 02, 2024 Dr. Mike Dill DO Emergency Departm ent Physician Active Start: November 02, 2024 End: November 02, 2024 Team Status: Inactive Member Role/Relationship Status Dates Dr. Unique Rivas MD Referring Provider Active Start: November 14, 2024 End: November 14, 2024 Glendy Arvizu CNM Attending physician Active Start: November 14, 2024 End: November 14, 2024 Marisa William NP-C Primary care physician Act jenn Start: November 14, 2024 End: November 14, 2024 Team Status: Inactive Member Role/Relationship Status Dates Marisa William NP-C Primary care physician Act jenn Start: November 14, 2024 End: November 14, 2024 Glendy Arvizu CNM Attending physician Active Start: November 14, 2024 End: November 14, 2024 Glendy Arvizu CNM Referring Provider Active S tart: November 14, 2024 End: November 14, 2024 Team Status: Inactive Member Role/Relationship Status Dates Dr. Unique Rivas MD Referring Provider Active Start: December 12, 2024 End: December 12, 2024 Dr. Sarah Ravi DO Attending physician Acti ve Start: December 12, 2024 End: December 12, 2024 Marisa William , [employer] Primary care physician Act jenn Start: December 12, 2024 End: December 12, 2024 Team Status: Inactive Member Role/Relationship Status Dates Dr. Unique Rivas MD Referring Provider Active Start: January 09, 2025 End: January 09, 2025 Dr. Nereida Chou MD Attending physician Active Start: January 09, 2025 End: January 09, 2025 Marisa William , [employer] Primary care physician Act jenn Start: January 09, 2025 End: January 09, 2025 Team Status: Inactive Member Role/Relationship Status Dates Marisa William , [employer] Primary care physician Act jenn Start: January 09, 2025 End: January 09, 2025 Dr. Nereida Chou MD Attending physician Active Start: January 09, 2025 End: January 09, 2025 Team Status: Inactive Member Role/Relationship Status Dates Marisa William , [employer] Primary care physician Act jenn Start: January 27, 2025 End: January 27, 2025 Marisa William , [employer] Referring Provider Active Start: January 27, 2025 End: January 27, 2025 Negrita Vital NP, [employer] Attending physician Active Start: January 27, 2025 End: January 27, 2025 Team Status: Inactive Member Role/Relationship Status Dates Marisa William , [employer] Primary care physician Act jenn Start: January 29, 2025 End: January 29, 2025 Glendy Arvizu CNM Attending physician Active Start: January 29, 2025 End: January 29, 2025 Glendy Arvizu CNM Referring Provider Active S tart: January 29, 2025 End: January 29, 2025 Team Status: Inactive Member Role/Relationship Status Dates Marisa William , [employer] Primary care physician Act jenn Start: February 10, 2025 End: February 10, 2025 Marisa William , [employer] Referring Provider Active Start: February 10, 2025 End: February 10, 2025 Glendy Arvizu CNM Attending physician Active Start: February 10, 2025 End: February 10, 2025 Goals (unrecognized section and content) Type Care Experience Labor Preferences-CB /BF classes: encouragedlabor support person: Edwardlabor intervention preferences: []pain management options preferred: epiduralcut cord/dad catch: cordbreastfeeding: yesPP control planned: discusseddiscussed possible routes of delivery and associated risks: []special requests: [] INFORMATION SOURCE (unrecogn ized section and content) DATE CREATED AUTHOR 07/31/2024 [facility] DATE CREATED AUTHOR AUTHOR'S ORGANIZ ATION 12/21/2024 [facility] DATE CREATED AUTHOR AUTHOR'S ORGANIZ ATION 02/13/2025 [facility] DATE CREATED AUTHOR AUTHOR'S ORGANIZ ATION 02/21/2025 [facility] DATE CREATED AUTHOR AUTHOR'S ORGANIZ ATION 02/25/2025 [facility] [place] FOR RECORDS PERTAINING TO PATIENTS WHO ARE [...] BE BASED ON THE PRIMARY CLINICAL RECORDS. [facility] [employer] [facility]. provides no warranty or guarantee of the accuracy or completeness of information in this document.
[2025-03-03 20:08] LABS: Chlamydia By Nucleic Acid AMP Negative (Negative); Gonococcus By Nucleic Acid AMP Negative (Negative)
== END | disposition home or self-care (01) ==
LOC: BWCLAB 16:29
PROVIDERS: PCP Nurse Practitioner Family; Visit Provider Obstetrics & Gynecology
DX: N89.8 Other specified noninflammatory disorders of vagina (principal); Z20.2 Contact with and (suspected) exposure to infections with a predominantly sexual mode of transmission
CPT/HCPCS: 87070; 87205; 87491; 87591

== ENCOUNTER → 2025-03-12 | Outpatient (CLI) | payer MEDICAID, SELFPAY ==
[2025-03-12 17:00] LABS: Hematocrit 33.6 % (37-47); Hemoglobin 10.6 g/dL (12.0-15.0); Immature Granulocytes Count 0.070 X10^3/uL (0.0-0.0); Mean Corp Hgb Conc 31.5 g/dL (32-36); Mean Corpuscular Volume 84.4 fL (81-99); Mean Platelet Vol. 12.2 fl (6.2-12.0); NRBC Flagged by Analyzer 0 % (0-5); Platelet Count 313 K/mm3 (150-450); RBC Distribution Width CV 17.4 % (11.6-14.6); RBC Distribution Width SD 53.3 fl (35.1-43.9); Red Blood Count 3.98 M/mm3 (4.2-5.4); White Blood Count 9.9 K/mm3 (4.4-11.0)
[2025-03-12 18:14] LABS: AST(SGOT) 18 U/L (<=31); Alanine Aminotransfer ALT/SGPT 14 U/L (<=34); Albumin, Serum 3.6 g/dL (3.5-5.0); Alkaline Phosphatase 158 U/L (35-104); Anion Gap 12 (5-15); BUN 9 mg/dL (4-19); BUN/Creat Ratio 15.9 RATIO (10-20); Calcium,Total 9.4 mg/dL (7.6-11.0); Carbon Dioxide 21.9 mmol/L (21.0-32.0); Chloride 103 mmol/L (98-108); Ferritin 9 ng/mL (22-378); Globulin 3.3 g/dL (2.2-4.2); Glucose 100 mg/dL (70-99); Iron 52 ug/dL (50-170); Iron Binding Capacity,Unsat 507 ug/dL (228-428); Potassium 3.7 mmol/L (3.3-5.1)
[2025-03-12 19:21] LABS: Iron Binding Capacity,Total 559 ug/dL (250-450)
== END | disposition home or self-care (01) ==
PROVIDERS: PCP Nurse Practitioner Family; Visit Provider Obstetrics & Gynecology
DX: O99.012 Anemia complicating pregnancy, second trimester (principal); O09.92 Supervision of high risk pregnancy, unspecified, second trimester; Z3A.00 Weeks of gestation of pregnancy not specified; O99.712 Diseases of the skin and subcutaneous tissue complicating pregnancy, second trimester; L29.9 Pruritus, unspecified
CPT/HCPCS: 36415; 80053; 82728; 83540; 83550; 85025

== ENCOUNTER → 2025-03-26 | Outpatient (CLI) | payer MEDICAID, SELFPAY ==
[2025-03-28 20:08] LABS: Chlamydia By Nucleic Acid AMP Negative (Negative); Gonococcus By Nucleic Acid AMP Negative (Negative)
== END | disposition home or self-care (01) ==
LOC: LABSPEC 10:32
PROVIDERS: PCP Nurse Practitioner Family; Visit Provider Advanced Practice Midwife
DX: O09.93 Supervision of high risk pregnancy, unspecified, third trimester (principal); O98.813 Other maternal infectious and parasitic diseases complicating pregnancy, third trimester; A74.9 Chlamydial infection, unspecified; Z3A.36 36 weeks gestation of pregnancy
CPT/HCPCS: 87081; 87491; 87591

== ENCOUNTER → 2025-03-28 | Outpatient (CLI) | payer MEDICAID, SELFPAY ==
[2025-03-28 13:00] LABS: Creatinine, Urine (random) 79.00 mg/dL (28.00-217.00); Protein, Urine (Random) 12.5 mg/dL (0.0-12.0); Protein:Creat Ratio 158 mg/g CRE (0-200)
== END | disposition home or self-care (01) ==
LOC: LABSPEC 11:52
PROVIDERS: PCP Nurse Practitioner Family; Visit Provider Obstetrics & Gynecology
DX: O09.92 Supervision of high risk pregnancy, unspecified, second trimester (principal); Z3A.00 Weeks of gestation of pregnancy not specified
CPT/HCPCS: 82570; 84156

== ENCOUNTER 2025-03-29 14:40 | Outpatient (CLI) | payer MEDICAID, SELFPAY ==
--- OUTSIDE RECORDS SUMMARY | 2025-03-29 14:46 | XMS RPT_ITS | CCD ---
Author Organization [facility] Care Team Providers Care Regulator Pin Inserter Name Role Phone Unique Rivas MD Primary Care Provider Dr. Unique Rivas Primary Care Provider Dr. Unique Rivas Referring Provider Zahraa SPORTS BETTING MANAGER, SPORTS BETTING MANAGER-C Negrita Attending Provider [phone] NURYS Arvizu Attending Provider [phone] Unique Rivas MD Primary Care Provider Stewart MAINTENANCE OF WAY FOREMAN.SILVER SOLDERERMarisa Primary Care Provider Stewart MAINTENANCE OF WAY FOREMAN.SILVER SOLDERERMarisa Primary Care Prov ider MARISA WILLIAM Primary Care Unavailabl e MARISA WILLIAM Attending Unavailabl e STEWART, MARISA ORTIZ Primary [facility] Unavailabl e WILLIAM, MARISA ORTIZ Primary [facility] Unavailabl e WILLIAM, MARISA ORTIZ Primary [facility] Unavailabl e WILLIAM, MARISA ORTIZ Primary [facility] Unavailabl e STEWART, MARISA ORTIZ Attending Unavailabl e STEWART, MARISA ORTIZ Primary [facility] Unavailabl e WILLIAM, MARISA ORTIZ Primary [facility] Unavailabl e WILLIAM, MARISA ORTIZ Primary [facility] Unavailabl e Dr. Unique Rivas MD Primary Care Provider Dr. Unique Rivas MD Referring Provider [phone] Dr. Nereida Chou MD Attending Provider Dr. Sarah Ravi DO Attending Provider Dr. Nereida Chou MD Referring Provider [phone] Zahraa JOHNSON-CNegrita Attending Provider Stewart SPORTS BETTING MANAGER-C, Marisa Ortiz Primary Care Provider Dr. Mike Dill DO Emergency Provider Fuentes CERVANTES, Dr. Mckeon Attending Provider Glendy Arvizu CNM Attending Provider [phone] Glendy Arvizu CNM Referring Provider Unavailable Primary Care Provider Unavailabl e NO, PHYSICIAN Primary Care Unavailable AUTUMN DELEON Attending Unavailable Evelyn COX, Dr. Calhoun Primary Care Provider Evelyn COX, Dr. Calhoun Referring Provider Radha COX, Dr. Padron Attending Provider Evelyn COX, Dr. Calhoun Primary Care Physician Evelyn COX, Dr. Calhoun Referring Provider Zahraa SPORTS BETTING MANAGER-CNegrita Attending Physician [phone] Stewart SPORTS BETTING MANAGER-C, Marisa Ortiz Primary Care Physicia n Fuentes CERVANTES, Dr. Mckeon Attending Physician Dr. Mike Dill DO Emergency Department Physi kyra Glendy Arvizu CNM Attending Physician [phone] Ricardo Ramos DO, Dr. Smith Attending Physician Radha COX, Dr. Padron Attending Physician Stewart SPORTS BETTING MANAGER-C, Marisa Ortiz Referring Provider DEEDEEIT, GATO Oconnor Attending Unavailable SUBITGATO Referring Unavailable SUBIT, GATO Oconnor Admitting Unavailable MARIONCHER FREGOSO Admitting Unavailable CHER SCHULTZ Attending Unavailable CHER SCHULTZ Referring Unavailable LETICIA MOON Attending Unavailable NEREIDA CHOU Referring Unavailabl e MARISA WILLIAM Primary Care Unavailable ZAHRAANEGRITA CAMPOS Referring Unavailable UNIQUE RAMIREZ A Primary Care Unavailable SARAH LACEY Attending Unavailable NEGRITA VITAL Attending Unavailable AZHRAA NEGRITA S Referring Unavailable SEIDOWSKI, UNIQUE A Primary Care Unavailable SEIDOWSKI, UNIQUE A Primary Care Unavailable SARAH LACEY Attending Unavailable NEREIDA CHOU Referring Unavailabl e LETICIA MOON Attending Unavailable NEREIDA CHOU Referring Unavailabl e WILLIAM, MARISA T Primary Care Unavailable Nereida Chou Attending Unavailable William, Marisa Meera Referring Unavailabl e William, Marisa Hernando Primary Care Unavailabl e Sarah Ravi Attending Unavailabl e William, [facility] Primary Care Unavailabl e Nereida Chou Referring Unavailable Nereida Chou Attending Unavailable Seifried, Unique Primary Care Unavailable Nereida Chou Attending Unavailable Seifried, Unique Primary Care Unavailable Seifried, Unique Referring Unavailable Glendy Arvizu Attending Unavailable William, Marisa Meera Referring Unavailabl e William, Marisa Hernando Primary Care Unavailabl e Seifried, Unique Referring Unavailable Sarah Ravi Attending Unavailabl e William, [facility] Primary Care Unavailabl e Raul Arizmendi Attending Unavailable Seifried, Unique Primary Care Unavailable Seifried, Unique Referring Unavailable Mike Dill Attending Unavailable William, Marisa Hernando Primary Care Unavailabl e Glendy Arvizu Attending Unavailable Glendy Arvizu Referring Unavailable William, [facility] Care Unavailabl e Nereida Chou Referring Unavailable Nereida Chou Attending Unavailable Seifried, Unique Primary Care Unavailable Seifried, Unique Referring Unavailable Negrita Vital Attending Unavailable Seifried, Unique Primary Care Unavailable Nereida Chou Attending Unavailable William, Marisa Meera Primary Care Unavailabl e Nereida Chou Attending Unavailable William, Marisa Hernando Primary Care Unavailabl e Raul Arizmendi Referring Unavailable Raul Arizmendi Attending Unavailable Seifried, Unique Primary Care Unavailable Glendy Arvizu Referring Unavailable Glendy Arvizu Attending Unavailable William, Marisa [facility] Care Unavailabl e Seifried, Unique Referring Unavailable Glendy Arvizu Attending Unavailable William, Marisa Hernando Primary Care Unavailabl e Sarah Ravi Attending Unavailabl e Seifried, Unique Primary Care Unavailable Seifried, Unique Referring Unavailable Seifried, Unique Referring Unavailable Nereida Chou Attending Unavailable Marisa William Primary Care Negrita Mclain Attending Unavailable Marisa William Primary Care Marisa Gee Referring Sarah Dunn Attending Marisa Gee Referring Marisa Gee Primary Care Unavailabl e Medications Current Medications Medication Drug [...] on above: Take 2 tablets by mo [facility] every 6 hours as needed for [...] Comment on above: Take 1 tablet by [facility] two times a day for 7 days. [...] Comment on above: Take [address] [facility] every 6 hours as needed for pain for up to 15 days. Take 1.5 tablets by mouth three times a day for 10 days. [place] (Nk) (1 source) Start: 3 [place] (Nk) Active February 13, 2023 12:00am ondansetron [...] Translations: [Attention-deficit hyperactivity disorder, unspecified type] Onset: 03-12-2025 Chronic Bacterial infection; unspecified site (1 source) Chlamydial infection, unspecified; Translations: [Chlamydial infection, unspecified] Onset: 03-12-2025 Episodic Complications of surgical procedures or medical care (14 sources) Drug therapy finding; Translations: [Unspecified adverse effect of drug or medicament, initial encounter] 01-30-2023 Episodic Contraceptive and procreative management (20 sources) Patient encounter status; Translations: [Encounter for contraceptive management, unspecified] 09-14-2020 Episodic Comment on above: abena reeves. PA sent Deficiency and other anemia (14 [...] rpt CBC in 4wks Other complications of (2 sources) Anemia complicating , unspecified trimester; Translations: [Anemia complicating , unspecified trimester] Onset: 03-12-2025 Chronic Other complications of (20 sources) High risk ; Translations: [Supervision of high risk , unspecified, unspecified trimester] 08-27-2024 Episodic Comment on above: , KELTON 04/23/25, BF: Edward [id number], KELTON 5, BF: Fausto Other complications of (20 sources) Chlamydia trachomatis infection in ; Translations: [Other maternal infectious and parasitic diseases complicating , unspecified trimester] 10-15-2024 Episodic Comment on above: + @ NOB. + @ NOB. Treated and vomited med. [place] [facility] sent and zofram prior. + @ NOB. Treated and vomited med. [place] [facility] sent and zofram prior. Rpt test negative Other complications of (2 sources) Supervision of high risk , unspecified, second trimester; Translations: [Supervision of high risk , unspecified, second trimester] Onset: 03-12-2025 Episodic Other complications of (2 sources) Diseases of the skin and subcutaneous tissue complicating , unspecified trimester; Translations: [Diseases of the skin and subcutaneous tissue complicating , unspecified trimester] Onset: 03-12-2025 Episodic Other complications of (1 source) Other maternal infectious and parasitic diseases complicating , first trimester; Translations: [Other maternal infectious and parasitic diseases complicating , first trimester] Onset: 03-12-2025 Episodic Other complications of (1 source) Other specified related conditions, second trimester; Translations: [Other specified related conditions, second trimester] Onset: 01-25-2025 Episodic Other complications of (1 source) Supervision [...] vaginal bleeding, unspecified] Onset: 11-07-2024 Chronic Other female genital disorders (1 source) Other specified noninflammatory disorders of vagina; Translations: [Other specified noninflammatory disorders of vagina] Onset: 03-05-2025 Episodic Other gastrointestinal disorders (14 sources) Hemorrhage into peritoneal cavity; Translations: [Hemoperitoneum] 09-14-2020 Episodic Comment on above: CT ordered- done and surgical postop findings noted Other inflammatory condition of skin (2 sources) Pruritus, unspecified; Translations: [Pruritus, unspecified] Onset: 03-12-2025 Episodic Other non-traumatic joint disorders (1 source) Hip [...] of , childbirth and the puerperium] Onset: 03-12-2025 Episodic Residual codes; unclassified (1 source) 34 weeks gestation of ; Translations: [34 weeks gestation of ] Onset: 03-12-2025 Episodic Residual codes; unclassified (1 source) 29 weeks [...] weeks gestation of ] Onset: 01-24-2025 Episodic Substance-related disorders (20 sources) Smoker; Translations: [Nicotine dependence, unspecified, uncomplicated] Onset: 03-12-2025 08-27-2024 Chronic Comment on above: Last smoke: [...] Test Name Value Interpretation Reference Range Facility [id number] 03-17-2025 [facility] Misc. COMMENT Normal . [facility] Comment on above: Order Comment: Comme nts: [id number], Bile acids, Serum [id number] acids Result Comment: Test Ordered: [id number] Bile Acids, Fractionated LCMS Ursodeoxycholic Acids <0.10 umol/L ES Reference Range: . Reference Range: All Ages: <1.9 Cholic Acids 0.80 umol/L ES Reference Range: . Reference Range: All Ages: <2.2 Chenodeoxycholic Acids 2.6 umol/L ES Reference Range: . Reference Range: All Ages: <5.8 Deoxycholic Acids 1.5 umol/L ES Reference Range: . Reference Range: All Ages: <3.3 Total Bile Acids 4.9 umol/L ES Reference Range: . This test was developed and its performance characteristics determined by [employer]. It has not been cleared or approved by the Food and Drug Administration. Reference Range: All Ages: <9.2 Performed at: [facility] [address] [place] [id number] Public Information Officer: Jasmina Ellis MD, Phone: [phone] Performed at: [address] [id number] Public Information Officer: Jhon Tillman PhD, Phone: [phone] Performed By: #### M 100.3200, L7000.1800, #### [facility] [address] [place], [address] CBC W/Diff, Automatedon 11-0 5-2024 Absolute Lymph 1.43 X10 3/uL Normal 0.83-4.51 [facility] Comment on above: Performed By: #### M 100.3200, L7000.1800, #### [facility] [address] [place], [address] Absolute Neut 7.5 X10 3/uL Normal 2.0-7.7 [facility] Comment on above: Performed By: #### M 100.3200, L7000.1800, #### [facility] [address] [place], [address] Basophils/100 WBC (Bld) 0.3 % Normal 0-1 [facility] Comment on above: Performed By: #### M 100.3200, L7000.1800, #### [facility] [address] [place], [address] Eosinophils/100 WBC (Bld) 0.9 % Normal 0-5 [facility] Comment on above: Performed By: #### M 100.3200, L7000.1800, #### [facility] [address] [place], [address] Erythrocyte distribution width (RBC) [Ratio] 17.4 % High 11.6-14.6 [facility] Comment on above: Performed By: #### M 100.3200, L7000.1800, #### [facility] [address] [place], [address] Hematocrit (Bld) [Volume fraction] 33.6 % Low 37-47 [facility] Comment on above: Performed By: #### M 100.3200, L7000.1800, #### [facility] [address] [place], [address] Hemoglobin (Bld) [Mass/Vol] 10.6 g/dL Low 12.0-15.0 [facility] Comment on above: Performed By: #### M 100.3200, L7000.1800, #### [facility] [address] [place], [address] IG% 0.700 Normal 0.0-0.9 [facility] Comment on above: Result Comment: IG% - Immature Granulocytes (promyelocytes, myelocytes and metamyelocytes) > 1% indicates that a LEFT SHIFT is Present. Performed By: #### M 100.3200, L7000.1800, #### [facility] [address] [place], [address] Lymphocytes/100 WBC (Bld) 14.4 % Low 19-41 [facility] Comment on above: Performed By: #### M 100.3200, L7000.1800, #### [facility] [address] [place], [address] MCH (RBC) [Entitic mass] 26.6 pg Low 27.0-32.0 [facility] Comment on above: Performed By: #### M 100.3200, L7000.1800, #### [facility] [address] [place], [address] MCHC (RBC) [Mass/Vol] 31.5 g/dL Low 32-36 [facility] Comment on above: Performed By: #### M 100.3200, L7000.1800, #### [facility] [address] [place], [address] MCV (RBC) [Entitic vol] 84.4 fL Normal 81-99 [facility] Comment on above: Performed By: #### M 100.3200, L7000.1800, #### [facility] [address] [place], [address] Monocytes/100 WBC (Bld) 7.8 % Normal 0-10 [facility] Comment on above: Performed By: #### M 100.3200, L7000.1800, #### [facility] [address] [place], [address] Neutrophils/100 WBC (Bld) 75.9 % High 47-70 [facility] Comment on above: Performed By: #### M 100.3200, L7000.1800, #### [facility] [address] [place], [address] Nucleated RBC (Bld) [#/Vol] 0 10*3/uL Normal 0-5 [facility] Comment on above: Performed By: #### M 100.3200, L7000.1800, #### [facility] [address] [place], [address] Platelet mean volume (Bld) [Entitic vol] 12.2 fL High 6.2-12.0 [facility] Comment on above: Performed By: #### M 100.3200, L7000.1800, #### [facility] [address] [place], [address] Platelets (Bld) [#/Vol] 313 10*3/uL Normal 150-450 [facility] Comment on above: Performed By: #### M 100.3200, L7000.1800, #### [facility] [address] [place], [address] RBC (Bld) [#/Vol] 3.98 10*6/uL Low 4.2-5.4 [facility] Comment on above: Performed By: #### M 100.3200, L7000.1800, #### [facility] [address] [place], [address] RDW SD 53.3 fl High 35.1-43.9 [facility] Comment on above: Performed By: #### M 100.3200, L7000.1800, #### [facility] [address] [place], [address] WBC (Bld) [#/Vol] 9.9 10*3/uL Normal 4.4-11.0 [facility] Comment on above: Performed By: #### M 100.3200, L7000.1800, #### [facility] [address] [place], [address] Comprehensive Metabolic Prof ilon 03-12-2025 Albumin [Mass/Vol] 3.6 g/dL Normal 3.5-5.0 [facility] Comment on above: Order Comment: 1C503 640, Bile acids, Serum FZ Performed By: #### M 100.3200, L7000.1800, #### [facility] [address] [place], [address] Albumin/Globulin [Mass ratio] 1.1 {ratio} Normal 0.9-2.4 [facility] Comment on above: Order Comment: 1C503 640, Bile acids, Serum FZ Performed By: #### M 100.3200, L7000.1800, #### [facility] [address] [place], [address] ALK PHOS 158 U/L High 35-104 [facility] Comment on above: Order Comment: 1C503 640, Bile acids, Serum FZ Performed By: #### M 100.3200, L7000.1800, #### [facility] [address] [place], [address] ALT [Catalytic activity/Vol] 14 U/L Normal <=34 [facility] Comment on above: Order Comment: 1C503 640, Bile acids, Serum FZ Performed By: #### M 100.3200, L7000.1800, #### [facility] [address] [place], [address] AST [Catalytic activity/Vol] 18 U/L Normal <=31 [facility] Comment on above: Order Comment: 1C503 640, Bile acids, Serum FZ Performed By: #### M 100.3200, L7000.1800, #### [facility] [address] [place], [address] Bilirubin [Mass/Vol] 0.21 mg/dL Normal 0.00-1.30 [facility] Comment on above: Order Comment: 1C503 640, Bile acids, Serum FZ Performed By: #### M 100.3200, L7000.1800, #### [facility] [address] [place], [address] BUN/CRE 15.9 RATIO Normal 10-20 [facility] Comment on above: Order Comment: 1C503 640, Bile acids, Serum FZ Performed By: #### M 100.3200, L7000.1800, #### [facility] [address] [place], [address] Calcium [Mass/Vol] 9.4 mg/dL Normal 7.6-11.0 [facility] Comment on above: Order Comment: 1C503 640, Bile acids, Serum FZ Performed By: #### M 100.3200, L7000.1800, #### [facility] [address] [place], [address] Chloride [Moles/Vol] 103 mmol/L Normal 98-108 [facility] Comment on above: Order Comment: 1C503 640, Bile acids, Serum FZ Performed By: #### M 100.3200, L7000.1800, #### [facility] [address] [place], [address] CO2 [Moles/Vol] 21.9 mmol/L Normal 21.0-32.0 [facility] Comment on above: Order Comment: 1C503 640, Bile acids, Serum FZ Performed By: #### M 100.3200, L7000.1800, #### [facility] [address] [place], [address] Creatinine [Mass/Vol] 0.54 mg/dL Low 0.70-1.20 [facility] Comment on above: Order Comment: 1C503 640, Bile acids, Serum FZ Performed By: #### M 100.3200, L7000.1800, #### [facility] [address] [place], [address] GAP 12 Normal 5-15 [facility] Comment on above: Order Comment: 1C503 640, Bile acids, Serum FZ Performed By: #### M 100.3200, L7000.1800, #### [facility] [address] [place], [address] GFR/1.73 sq M.predicted among non-blacks MDRD (S/P/Bld) [Vol rate/Area] 133 mL/min/{1.73_m2} Normal >60 [facility] Comment on above: Order Comment: 1C503 640, Bile acids, Serum FZ Result Comment: mL/m in/1.73m2 CKD-EPI Creatinine Equation (2020) Performed By: #### M 100.3200, L7000.1800, #### [facility] [address] [place], [address] Globulin (S) [Mass/Vol] 3.3 g/dL Normal 2.2-4.2 [facility] Comment on above: Order Comment: 1C503 640, Bile acids, Serum FZ Performed By: #### M 100.3200, L7000.1800, #### [facility] [address] [place], [address] Glucose [Mass/Vol] 100 mg/dL High 70-99 [facility] Comment on above: Order Comment: 1C503 640, Bile acids, Serum FZ Performed By: #### M 100.3200, L7000.1800, #### [facility] [address] [place], [address] Potassium [Moles/Vol] 3.7 mmol/L Normal 3.3-5.1 [facility] Comment on above: Order Comment: 1C503 640, Bile acids, Serum FZ Performed By: #### M 100.3200, L7000.1800, #### [facility] [address] [place], [address] Sodium [Moles/Vol] 137 mmol/L Normal 133-145 [facility] Comment on above: Order Comment: 1C503 640, Bile acids, Serum FZ Performed By: #### M 100.3200, L7000.1800, #### [facility] [address] [place], [address] T PROT 6.9 g/dL Normal 5.9-8.4 [facility] Comment on above: Order Comment: 1C503 640, Bile acids, Serum FZ Performed By: #### M 100.3200, L7000.1800, M100.1999 #### [facility] [address] [place], [address] Urea nitrogen [Mass/Vol] 9 mg/dL Normal 4-19 [facility] Comment on above: Order Comment: 1C503 640, Bile acids, Serum FZ Performed By: #### M 100.3200, L7000.1800, M100.1999 #### [facility] [address] [place], [address] Ferritinon 03-12-2025 Ferritin [Mass/Vol] 9 ng/mL Low 22-378 [facility] Comment on above: Performed By: #### M 100.3200, L7000.1800, M100.1999 #### [facility] [address] [place], [address] Iron+Iron Binding Capacityon 03-12-2025 TIBC 559 ug/dL High 250-450 [facility] Comment on above: Order Comment: 1C503 640, Bile acids, Serum FZ Performed By: #### M 100.3200, L7000.1800, M100.1999 #### [facility] [address] [place], [address] [employer] [employer] Office Visit Reporton 03-12-2025 [employer] [employer] [facility] Office Visit Report [facility] [address], [address] [place] [address] OFFICE VISIT Date of Service: 03/12/25 MR#: [id number] Acct: [id number] Name: NAN MEYERS Rep #: [id number] : 2000 Provider: Dr. Nereida velasquez MD Age/Sex: 25/F Location: [facility] [place] Status: Signed Intake Vital Signs 01/09/25 10:32 01/27/25 09:50 02/28/25 14:07 03/12/25 13:56 03/12/25 14:00 Height 5 ft 5 ft 5 ft 5 ft 5 ft Weight: 176 lb 5 oz 176 lb 6 oz BMI 34.4 34.4 BP 122/77 H 111/76 Intake Visit Reasons: 34 WK [facility] [place] [facility] [place] Required: No Is patient in pain?: No Allergies No Known Allergies Allergy (Verified 03/12/25 13:55) Medications ???Medication ???Instructions ???Recorded ???Confirmed ???Type docosahexaenoic acid 200 mg mg PO 08/27/24 03/12/25 History capsule ( DHA) ondansetron HCl 4 mg tablet 4 mg PO Q4H #60 tabs 10/10/2409/29 Rx Last Menstrual Period: 07/17/24 Zika: Zika virus screening: Negative : No PFSH PFSH Medical History ADHD Anxiety , ectopic, tubal Surgical History History of ectopic Family History Mother Thyroid disorder Adopted Hypertension Hyperlipidemia Grandmother Hypertension Grandfather Hypertension Father Asthma Social History adopted: No household members: significant other and other details: Brother his baby current occupational status: employed current occupation: [employer] current occupational exposures/hazards: No pets and animals: [...] physical activity do you participate in: none christopher/restorationist: None seatbelt use: always do you feel safe at home: Yes additional social history: BF: Fausto - [employer] History 2 Elective abortions Hx Para 0 Spontaneous abortions 0 Hx # Term Pregnancies Ectopic pregnancies 1 Hx # Pregnancies Multiple births # of living children 0 Past Pregnancies Del. Date Name GA/Weeks Outcome Route Bth Weight Gen Labor Lgth Anesthesia Del Locatn Provider FOB 09/08/20 4 ectopic SM Delivery Date: 09/08/20 Last Updated by: Farzaneh Deal RN Right ovarian tubal HPI 34 WK OB Details: NAN MEYERS is a 25 year old who presents for routine OB visit. OB Visit KELTON Calculator Estimated Delivery Date Method Current WG Current Estimate 04/23/25 LMP (Certain) 34w 0d Other Estimates 04/23/25 Ultrasound #1 34w 0d Expected Delivery Route/Plan Labor Preferences- CB/BF classes: [...] -No VB. V omited up zithromax for ch (more content not included)... Normal [facility] Chlamydia/GC VISHNU aptimaon CHLAMY,NUC ACID Negative Normal Negative [facility] Comment on above: Performed By: #### M 100.3200, L7000.1800, M100.1999 #### [facility] Laboratory [address] [place], [address] GC BY NUC ACID Negative Normal Negative [facility] Comment on above: Result Comment: Perf ormed at: =G - [facility] [address] [id number] Public Information Officer: Birdie Tobin MD, Phone: [phone] Performed By: #### M 100.3200, L7000.1800, M100.1999 #### [facility] Laboratory [address] [place], [address] Genital Culture Comprehensiv elton 03-03-2025 VAC Reason for Exam: vaginal discharge Normal vaginal francis isolated. No yeast, Gardnerella, Neisseria or beta-hemolytic Streptococcus isolated. Normal [facility] Comment on above: Performed By: #### M 100.3200, L7000.1800, M100.1999 #### [facility] Laboratory [address] [place], [address] Gram Stainon 02-28-2025 GS Reason for Exam: vaginal discharge Gram Stain 2+ Gram positive rods 3+ Gram negative rods No Gram negative diplococci Score =5 Interpretation: 0-3 Normal, 4-6 Intermediate, 7-10 Positive BV Normal [facility] Comment on above: Performed By: #### M 100.3200, L7000.1800, M100.1999 #### [facility] Laboratory [address] [place], [address] [employer] [employer] Office Visit Reporton 02-28-2025 [facility] Office Visit Report [facility] [address], [address] [place] [address] OFFICE VISIT Date of Service: 02/28/25 MR#: [id number] Acct: [id number] Name: NAN MEYERS Rep #: [id number] : 2000 Provider: Dr. Sarah Zamudio DO Age/Sex: 25/F Location: [facility] [place] Status: Signed Intake Vital Signs 01/09/25 10:32 01/27/25 09:50 02/10/25 14:17 02/28/25 14:07 Height 5 ft 5 ft 5 ft 5 ft Weight: 176 lb 5 oz BMI 34.4 BP 122/77 H Intake Visit Reasons: 32 WK OB [employer] Required: No Is patient in pain?: No Allergies No Known Allergies Allergy (Verified 02/28/25 14:13) Medications ???Medication ???Instructions ???Recorded ???Confirmed ???Type docosahexaenoic acid 200 mg mg PO 08/27/24 02/28/25 History capsule ( DHA) ondansetron HCl 4 mg tablet 4 mg PO Q4H #60 tabs 10/10/2402/06 Rx Last Menstrual Period: 07/17/24 Zika: Zika virus screening: Negative : No PFSH PFSH Medical History ADHD Anxiety , ectopic, tubal Surgical History History of ectopic Family History Mother Thyroid disorder Adopted Hypertension Hyperlipidemia Grandmother Hypertension Grandfather Hypertension Father Asthma Social History adopted: No household members: significant other and other details: Brother his baby current occupational status: employed current occupation: [employer] current occupational exposures/hazards: No pets and animals: [...] physical activity do you participate in: none christopher/restorationist: None seatbelt use: always do you feel safe at home: Yes additional social history: BF: Fausto - [employer] History 2 Elective abortions Hx Para 0 Spontaneous abortions 0 Hx # Term Pregnancies Ectopic pregnancies 1 Hx # Pregnancies Multiple births # of living children 0 Past Pregnancies Del. Date Name GA/Weeks Outcome Route Bth Weight Gen Labor Lgth Anesthesia Del Locatn Provider FOB 09/08/20 4 ectopic SM Delivery Date: 09/08/20 Last Updated by: Farzaneh Deal RN Right ovarian tubal HPI 32 WK OB Details: NAN MEYERS is a 25 year old who presents for routine OB visit. OB Visit KELTON Calculator Estimated Delivery Date Method Current WG Current Estimate 04/23/25 LMP (Certain) 32w 2d Other Estimates 04/23/25 Ultrasound #1 32w 2d Expected Delivery Route/Plan Labor Preferences- CB/BF classes: [...] zithromax for chlamydia. Will retreat and instructed (more content not included)... Normal [facility] [employer] Office Visit Reporton 02-10-2025 [facility] Office Visit Report [facility] [address], [address] [place] [address] OFFICE VISIT Date of Service: 02/10/25 MR#: [id number] Acct: [id number] Name: NAN MEYERS Rep #: [id number] : 2000 Provider: NURYS Swenson ams Age/Sex: 25/F Location: [facility] [place] Status: Signed with Addenda ADDENDUM by Meagan Parish on 02/10/25 at 1436 Office Procedure Documentation entered by Meagan Parish 02/10/25 14:36: Immunizations Adacel(Tdap Adolesn/Adult)(PF) 2 Lf-(2.5-5-3-5)-5 Lf/0.5 mL IM syringe Performing Provider: Glendy Arvizu CNM Performing Location: [facility] Administered by: Meagan Parish on 02/10/25 14:35 Dose Route Admin Location Dispensed Lot Number Expiration Date Package NDC NDC Distribution A Class Lineman 0.5 mL IM Left Deltoid 0.5 mL [id number] 01/04/27 [id number] JOSE[employer]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 VIS Given Date VIS Provided VIS Publication Date 02/10/25 Single Vaccine 24 Eligibility Eligibility Date Funding Source Not Applicable Date cc: * Signed Intake Vital Signs 01/09/25 10:32 01/27/25 09:50 02/10/25 14:17 Height 5 ft 5 ft 5 ft Weight: 170 lb BMI 33.2 BP 128/77 H Intake Visit Reasons: 30 WK OB Chief Complaint: 30wk OB [employer] Required: No Is patient in pain?: No [...] current occupational status: employed current occupation: [employer] current occupational exposures/hazards: No pets and animals: [...] physical activity do you participate in: none christopher/restorationist: None seatbelt use: always do you feel safe at home: Yes additional social history: BF: Fausto - [employer] History 2 Elective abortions Hx Para 0 [...] FuHt P (more content not included)... Normal [facility] Absolute lymphocyte countOrd ered By: Nereida Chou on 01-29-2025 Lymphocytes Auto (Unsp spec) [#/Vol] 1.67 10*3/uL 0.83-4.51 [facility] Absolute neutrophil countOrd ered By: Nereida Chou on 01-29-2025 Neutrophils (Bld) [#/Vol] 6.7 10*3/uL 2.0-7.7 [facility] Automated lymphocyte count a s percentage of total leukocytesOrdered By: Nereida Chou on 01-29-2025 Lymphocytes/100 WBC Auto (Unsp spec) 17.7 % Low 19-41 [facility] Basophil percentageOrdered B y: Nereida Chou on 01-29-2025 Basophils/100 WBC (Bld) 0.3 % 0-1 [place] CBC W/Diff, Automatedon 01-07 Absolute Lymph 1.67 X10 3/uL Normal 0.83-4.51 [facility] Comment on above: Performed By: #### M 100.3200, L7000.1800, #### [facility] Laboratory [address] [place], [address] Absolute Neut 6.7 X10 3/uL Normal 2.0-7.7 [facility] Comment on above: Performed By: #### M 100.3200, L7000.1800, #### [facility] Laboratory [address] [place], [address] Basophils/100 WBC (Bld) 0.3 % Normal 0-1 [facility] [place] Comment on above: Performed By: #### M 100.3200, L7000.1800, #### [facility] Laboratory [address] [place], [address] Eosinophils/100 WBC (Bld) 1.7 % Normal 0-5 [facility] Comment on above: Performed By: #### M 100.3200, L7000.1800, #### [facility] Laboratory [address] [place], [address] Erythrocyte distribution width (RBC) [Ratio] 14.0 % Normal 11.6-14.6 [facility] Comment on above: Performed By: #### M 100.3200, L7000.1800, #### [facility] Laboratory [address] [place], [address] Hematocrit (Bld) [Volume fraction] 29.9 % Low 37-47 [facility] Comment on above: Performed By: #### M 100.3200, L7000.1800, #### [facility] Laboratory [address] [place], [address] Hemoglobin (Bld) [Mass/Vol] 9.9 g/dL Low 12.0-15.0 [facility] Comment on above: Performed By: #### M 100.3200, L7000.1800, #### [facility] Laboratory [address] [place], [address] IG% 0.800 Normal 0.0-0.9 [facility] Comment on above: Result Comment: IG% - Immature Granulocytes (promyelocytes, myelocytes and metamyelocytes) > 1% indicates that a LEFT SHIFT is Present. Performed By: #### M 100.3200, L7000.1800, #### [facility] Laboratory [address] [place], [address] Lymphocytes/100 WBC (Bld) 17.7 % Low 19-41 [facility] Comment on above: Performed By: #### M 100.3200, L7000.1800, #### [facility] Laboratory [address] [place], [address] MCH (RBC) [Entitic mass] 28.0 pg Normal 27.0-32.0 [facility] Comment on above: Performed By: #### M 100.3200, L7000.1800, #### [facility] Laboratory [address] [place], [address] MCHC (RBC) [Mass/Vol] 33.1 g/dL Normal 32-36 [facility] Comment on above: Performed By: #### M 100.3200, L7000.1800, #### [facility] Laboratory [address] [place], [address] MCV (RBC) [Entitic vol] 84.7 fL Normal 81-99 [facility] Comment on above: Performed By: #### M 100.3200, L7000.1800, #### [facility] Laboratory [address] [place], [address] Monocytes/100 WBC (Bld) 9.1 % Normal 0-10 [facility] Comment on above: Performed By: #### M 100.3200, L7000.1800, #### [facility] Laboratory [address] [place], [address] Neutrophils/100 WBC (Bld) 70.4 % High 47-70 [facility] Comment on above: Performed By: #### M 100.3200, L7000.1800, #### [facility] Laboratory [address] [place], [address] Nucleated RBC (Bld) [#/Vol] 0 10*3/uL Normal 0-5 [facility] Comment on above: Performed By: #### M 100.3200, L7000.1800, #### [facility] Laboratory [address] [place], [address] Platelet mean volume (Bld) [Entitic vol] 11.4 fL Normal 6.2-12.0 [facility] Comment on above: Performed By: #### M 100.3200, L7000.1800, M100 #### [facility] Laboratory [address] [place], [address] Platelets (Bld) [#/Vol] 360 10*3/uL Normal 150-450 [facility] Comment on above: Performed By: #### M 100.3200, L7000.1800, #### [facility] Laboratory [address] [place], [address] RBC (Bld) [#/Vol] 3.53 10*6/uL Low 4.2-5.4 [facility] Comment on above: Performed By: #### M 100.3200, L7000.1800, M1 #### [facility] Laboratory [address] [place], [address] RDW SD 42.8 fl Normal 35.1-43.9 [facility] Comment on above: Performed By: #### M 100.3200, L7000.1800, M100 #### [facility] Laboratory [address] [place], [address] WBC (Bld) [#/Vol] 9.5 10*3/uL Normal 4.4-11.0 [facility] Comment on above: Performed By: #### M 100.3200, L7000.1800, #### [facility] Laboratory [address] [place], [address] Eosinophil percentageOrdered By: Nereida Chou on 01-29-2025 Eosinophils/100 WBC (Bld) 1.7 % 0-5 [facility] Erythrocyte distribution wid th ratioOrdered By: Nereida Cohu on 01-29-2025 Erythrocyte distribution width (RBC) [Ratio] 14.0 % 11.6-14.6 [facility] Erythrocyte distribution wid th standard deviationOrdered By: Nereida Chou on 01-29-2025 Erythrocyte distribution width (RBC) [Ratio] 42.8 fl 35.1-43.9 [facility] Glucose Challenge Gest 1H 50 ananda 01-29-2025 GLU GEST 50g 1H 95 mg/dL Normal 70-140 [facility] Comment on above: Result Comment: AMENDED REPORT 01/29/25 1317 GLU GEST 50g 1H previously reported as: 102 mg/dL Performed By: #### M 100.3200, L7000.1800, #### [facility] Laboratory [address] [place], [place], [address] Glucose measurement at 2 janay rs post-dose gestational glucose tolerance testOrdered By: Nereida Chou on 01-29-2025 Glucose [Mass/Vol] 95 mg/dL 70-140 [facility] Comment on above: Previous reported re sult: 102 mg/dLEdited by: AUTOINS on 01/29/25:1317 AMENDED REPORT 01/29/25 1317 GLU GEST 50g 1H previously reported as: 102 mg/dL HIVon 01-29-2025 HIV Non-Reactive Normal Nonreactive [facility] Comment on above: Result Comment: Non- Reactive Reactive Repeatedly reactive samples must be confirmed according to CDC recommended confirmatory algorithms. The subresults for either HIVAG or AHIV can be used as an aid in the selection of the confirmation algorithm for reactive samples. Send out specimens with Reactive results to [facility] for confirmation. Order the HIV antibody detection and differentiation: #[id number] Performed By: #### M 100.3200, L7000.1800, #### [facility] Laboratory [address] [place], [address] Hematocrit Auto (Bld) [Volum e fraction]Ordered By: Nereida Chou on 01-29-2025 Hematocrit (Bld) [Volume fraction] 29.9 % Low 37-47 [facility] Hemoglobin measurementOrdere d By: Nereida Chou on 01-29-2025 Hemoglobin (Bld) [Mass/Vol] 9.9 g/dL Low 12.0-15.0 [facility] Immature granulocytes/100 WB C Auto (Bld)Ordered By: Nereida Chou on 01-29-2025 Immature granulocytes/100 WBC (Bld) 0.800 % 0.0-0.9 [facility] Comment on above: IG% - Immature Granu locytes (promyelocytes, myelocytes and metamyelocytes) > 1% indicates that a LEFT SHIFT is Present. MCV (mean corpuscular volume ) determinationOrdered By: Nereida Chou on 01-29-2025 MCV (RBC) [Entitic vol] 84.7 fL 81-99 [facility] [place] Mean corpuscular hemoglobin (MCH) determinationOrdered By: Nereida Chou on 01-29-2025 MCH (RBC) [Entitic mass] 28.0 pg 27.0-32.0 [facility] Mean corpuscular hemoglobin concentration (MCHC) determinationOrdered By: Nereida Chou on 01-29-2025 MCHC (RBC) [Mass/Vol] 33.1 g/dL 32-36 [facility] Mean platelet volume determi nationOrdered By: Nereida Chou on 01-29-2025 Platelet mean volume (Bld) [Entitic vol] 11.4 fL 6.2-12.0 [facility] Monocyte percentageOrdered B y: Nereida Chou on 01-29-2025 Monocytes/100 WBC (Bld) 9.1 % 0-10 [place] Neutrophil percentageOrdered By: Nereida Chou on 01-29-2025 Neutrophils/100 WBC (Bld) 70.4 % High 47-70 [facility] No Panel InformationOrdered By: Nereida Chou on 01-29-2025 HIV (1&2) Antibody Non-Reactive Nonreactive [facility] Comment on above: Non-ReactiveReactive Repeatedly reactive samples must be confirmed according to CDC recommended confirmatory algorithms. The subresults for either HIVAG or AHIV can be used as an aid in the selection of the confirmation algorithm for reactive samples.Send out specimens with Reactive results to [facility] for confirmation.Order the HIV antibody detection and differentiation: #[id number] Nucleated red blood cell per centageOrdered By: Nereida Chou on 01-29-2025 Nucleated RBC/100 WBC (Bld) [Ratio] 0 % 0-5 [facility] Platelet countOrdered By: Andrei Chou on 01-29-2025 Platelets (Bld) [#/Vol] 360 10*3/uL 150-450 [facility] RBC Auto (Bld) [#/Vol]Ordere d By: Nereida Chou on 01-29-2025 RBC (Bld) [#/Vol] 3.53 10*6/uL Low 4.2-5.4 [facility] Syphilis Antibodieson 2024 Syphilis Abs Non-Reactive Normal Nonreactive [facility] Comment on above: Performed By: #### M 100.3200, L7000.1800, M100.2000 #### [facility] Laboratory [address] [place], [address] White blood cell (WBC) count Ordered By: Nereida Chou on 01-29-2025 WBC (Bld) [#/Vol] 9.5 10*3/uL 4.4-11.0 [facility] Laboratory - Chemistry and C hemistry - challengeOrdered By: Negrita Vital on 01-27-2025 Glucose Ql (U) Negative [facility] Laboratory - UrinalysisOrder ed By: Negrita Vital on 01-27-2025 Protein Ql (U) Negative [facility] [employer] [employer] Office Visit Reporton 01-27-2025 [facility] Office Visit Report [facility] [address], [address] [place] [address] OFFICE VISIT Date of Service: 01/27/25 MR#: [id number] Acct: [id number] Name: NAN MEYERS Rep #: [id number] : 2000 Provider: DEBORAH grey Age/Sex: 25/F Location: [facility] [place] Status: Signed Intake Vital Signs 12/12/24 13:21 12/12/24 13:48 01/09/25 10:32 01/27/25 09:50 Height 5 ft 5 ft 5 ft 5 ft Weight: 160 lb 9 oz 162 lb 3 oz BMI 31.4 31.6 BP 116/70 122/71 H Intake Visit Reasons: 28 WK OB/GLUCOSE [employer] Required: No Is patient in pain?: No [...] baby current occupational status: employed current occupation: [employer] current occupational exposures/hazards: No pets and animals: [...] physical activity do you participate in: none christopher/restorationist: None seatbelt use: always do you feel safe at home: Yes additional social history: BF: Fausto - [employer] History 2 Elective abortions Hx Para 0 [...] V omited (more content not included)... Normal [facility] (ROM) Rupture Of Membraneson 01-09-2025 ROM Negative Normal Negative [facility] Comment on above: Result Comment: Amni otic fluid not present indicates No Rupture of Membranes at time of specimen collection. Performed By: #### L 205.1000 #### [facility] Laboratory [address] [place], [address] Laboratory - Chemistry and C hemistry - challengeOrdered By: Nereida Chou on 01-09-2025 Glucose Ql (U) Negative [facility] Laboratory - UrinalysisOrder ed By: Nereida Chou on 01-09-2025 Protein Ql (U) Negative [facility] [employer] Office Visit Reporton 01-09-2025 [facility] [employer] Office Visit Report [facility] [address], [address] [place] [id number] OFFICE VISIT Date of Service: 01/09/25 MR#: [id number] Acct: [id number] Name: NAN MEYERS Rep #: [id number] : 2000 Provider: Dr. Nereida velasquez MD Age/Sex: 24/F Location: [facility] [place] Status: Signed Intake Vital Signs 10/15/24 08:32 12/12/24 13:48 01/09/25 10:32 Height 5 ft 5 ft 5 ft Weight: 160 lb 9 oz BMI 31.4 BP 116/70 Intake Visit Reasons: 25 wk ob [employer] Required: No Is patient in pain?: No [...] physical activity do you participate in: none christopher/restorationist: None seatbelt use: always do you feel safe at home: Yes additional social history: BF: [employer] History 2 Elective abortions Hx Para 0 [...] 11/14/24 -?? (more content not included)... Normal [facility] ED Prov Noteon 12-19-2024 ED Prov Note [facility] EMERGENCY DE[facility]MENT ATTENDING NOTE: NAME: Nan Dejan Meyers CSN: [id number] 24 y.o. PCP: No, Physician History: Chief [...] All other components within normal limits Narrative: [facility] Laboratory Services has implemented the eGFR calculation [...] ED Disposit (more content not included)... Normal [facility] POC BASIC METABOLIC PANEL - [place] 12-19-2024 Chloride [Moles/Vol] 104 mmol/L Normal 98-108 [facility] Comment on above: Order Comment: [facility] Services has implemented the eGFR calculation approach that does not have a coefficient for race that conforms to the NKF-ASN Task Force Recommendations. Performed By: #### P [id number] #### ONED FSED POCT LAB [address] [place] [address] Osiel Nelson D.O. [id number] CO2 [Moles/Vol] 23 mmol/L Normal 21-32 [facility] Comment on above: Order Comment: [facility] has implemented the eGFR calculation approach that does not have a coefficient for race that conforms to the NKF-ASN Task Force Recommendations. Performed By: #### P [id number] #### ONED FSED POCT LAB [address] [place] [address] Osiel Nelson D.O. [id number] Creatinine [Mass/Vol] 0.72 mg/dL Normal 0.40-1.10 [facility] Comment on above: Order Comment: [facility] has implemented the eGFR calculation approach that does not have a coefficient for race that conforms to the NKF-ASN Task Force Recommendations. Performed By: #### P [id number] #### ONED FSED POCT LAB [address] [place] [address] Osiel Nelson D.OLeonela [id number] Glucose [Mass/Vol] 88 mg/dL Normal 65-99 [facility] Comment on above: Order Comment: [facility] Services has implemented the eGFR calculation approach that does not have a coefficient for race that conforms to the NKF-ASN Task Force Recommendations. Performed By: #### P [id number] #### ONED FSED POCT LAB [address] [place] [address] Osiel Nelson D.O. [id number] POC GFR 121 mL/min/1.73 m2 Normal >=60 [facility] Comment on above: Order Comment: [facility] Services has implemented the eGFR calculation approach that does not have a coefficient for race that conforms to the NKF-ASN Task Force Recommendations. Result Comment: Anastasiia mated GFR was calculated using the 2020 CKD-EPI creatinine equation. Performed By: #### P [id number] #### ONED FSED POCT LAB [address] [place] [address] Dejan Barajas.OLeonela [id number] POC IONIZED CALCIUM 4.7 mg/dL Normal 4.5-5.3 [facility] Comment on above: Order Comment: [facility] has implemented the eGFR calculation approach that does not have a coefficient for race that conforms to the NKF-ASN Task Force Recommendations. Performed By: #### P [id number] #### ONED FSED POCT LAB [address] [place] [address] Osiel Nelson D.OLeonela [id number] Potassium [Moles/Vol] 3.4 mmol/L Low 3.5-5.1 [facility] Comment on above: Order Comment: [facility] has implemented the eGFR calculation approach that does not have a coefficient for race that conforms to the NKF-ASN Task Force Recommendations. Performed By: #### P [id number] #### ONED FSED POCT LAB [address] [place] [address] Dejan Barajas.OLeonela [id number] Sodium [Moles/Vol] 139 mmol/L Normal 135-145 [facility] Comment on above: Order Comment: [facility] has implemented the eGFR calculation approach that does not have a coefficient for race that conforms to the NKF-ASN Task Force Recommendations. Performed By: #### P [id number] #### ONED FSED POCT LAB [address] [place] [address] Dejan Barajas.OLeonela [id number] Urea nitrogen [Mass/Vol] 8 mg/dL Normal 8-25 [facility] Comment on above: Order Comment: [facility] has implemented the eGFR calculation approach that does not have a coefficient for race that conforms to the NKF-ASN Task Force Recommendations. Performed By: #### P [id number] #### ONED FSED POCT LAB [address] [place] [address] Osiel Nelson, D.O. [id number] POC CBC AND DIFFERENTIALon 0 - BASOPHILS ABSOLUTE COUNT 0.04 K/mcL Normal 0.00-0.30 [facility] Comment on above: Performed By: #### L [id number] #### ONED FSED POCT LAB [address] [place] [address] Osiel Nelson, D.O. [id number] Basophils/100 WBC (Bld) 0.4 % Normal [facility] Comment on above: Performed By: #### L [id number] #### ONED FSED POCT LAB [address] [place] [address] Osiel Nelson, D.O. [id number] Eosinophils (Bld) [#/Vol] 0.10 10*3/uL Normal 0.00-0.50 [facility] Comment on above: Performed By: #### L [id number] #### ONED FSED POCT LAB [address] [place] [address] Osiel Nelson, D.O. [id number] Eosinophils/100 WBC (Bld) 1.1 % Normal [facility] Comment on above: Performed By: #### L [id number] #### ONED FSED POCT LAB [address] [place] [address] Osiel Nelson D.O. [id number] Erythrocyte distribution width (RBC) [Ratio] 13.3 % Normal 11.6-14.8 [facility] Comment on above: Performed By: #### L [id number] #### ONED FSED POCT LAB [address] [place] [address] Osiel Nelson D.O. [id number] Hematocrit (Bld) [Volume fraction] 31.5 % Low 36.0-46.0 [facility] Comment on above: Performed By: #### L [id number] #### ONED FSED POCT LAB [address] [place] [address] Osiel Nelson D.O. [id number] Hemoglobin (Bld) [Mass/Vol] 10.6 g/dL Low 12.0-16.0 [facility] Comment on above: Performed By: #### L [id number] #### ONED FSED POCT LAB [address] [place] [address] Osiel Nelson D.O. [id number] IG ABSOLUTE 0.04 K/mcL Normal 0.00-0.30 [facility] Comment on above: Performed By: #### L [id number] #### ONED FSED POCT LAB [address] [place] [address] Dejan Barajas.O. [id number] IG PERCENT 0.40 % Normal [facility] Comment on above: Result Comment: The IG parameter is the percentage of metamyelocytes, myelocytes and promyelocytes. An immature granulocyte count (IG) of 1% or more suggests the possibility of infection, an IG count of 3% is very likely related to an infection. Performed By: #### L [id number] #### ONED FSED POCT LAB [address] [place] [address] Osiel Nelson D.O. [id number] Lymphocytes (Bld) [#/Vol] 1.89 10*3/uL Normal 0.90-4.00 [facility] Comment on above: Performed By: #### L [id number] #### ONED FSED POCT LAB [address] [place] [address] Osiel Nelson D.O. [id number] Lymphocytes/100 WBC (Bld) 19.9 % Normal [facility] Comment on above: Performed By: #### L [id number] #### ONED FSED POCT LAB [address] [place] [address] Osiel Nelson D.O. [id number] MCH (RBC) [Entitic mass] 29.3 pg Normal 26.0-34.0 [facility] Comment on above: Performed By: #### L [id number] #### ONED FSED POCT LAB [address] [place] [address] Dejan Barajas.O. [id number] MCV (RBC) [Entitic vol] 87.0 fL Normal 80.0-100.0 [facility] Comment on above: Performed By: #### L [id number] #### ONED FSED POCT LAB [address] [place] [address] Osiel Nelson D.O. [id number] MEAN CORPUSCULAR HEMOGLOBIN CONC 33.7 g/dL Normal 31.0-37.0 [facility] Comment on above: Performed By: #### L [id number] #### ONED FSED POCT LAB [address] [place] [address] Dejan Barajas.O. [id number] Monocytes (Bld) [#/Vol] 0.76 10*3/uL Normal 0.30-0.90 [facility] Comment on above: Performed By: #### L [id number] #### ONED FSED POCT LAB [address] [place] [address] Osiel Nelson D.O. [id number] Monocytes/100 WBC (Bld) 8.0 % Normal [facility] Comment on above: Performed By: #### L [id number] #### ONED FSED POCT LAB [address] [place] [address] Osiel Nelson D.O. [id number] NEUTROPHILS ABSOLUTE COUNT 6.65 K/mcL Normal 1.70-7.00 [facility] Comment on above: Performed By: #### L [id number] #### ONED FSED POCT LAB [address] [place] [address] Osiel Nelson D.O. [id number] Neutrophils/100 WBC (Bld) 70.2 % Normal [facility] Comment on above: Performed By: #### L [id number] #### ONED FSED POCT LAB [address] [place] [address] Dejan Barajas.OLeonela [id number] Platelet mean volume (Bld) [Entitic vol] 11.3 fL Normal 9.4-12.4 [facility] Comment on above: Performed By: #### L [id number] #### ONED FSED POCT LAB [address] [place] [address] Dejan Barajas.O. [id number] Platelets (Bld) [#/Vol] 294 10*3/uL Normal 150-400 [facility] Comment on above: Performed By: #### L [id number] #### ONED FSED POCT LAB [address] [place] [address] Dejan Barajas.O. [id number] RBC (Bld) [#/Vol] 3.62 10*6/uL Low 4.00-5.20 [facility] Comment on above: Performed By: #### L [id number] #### ONED FSED POCT LAB [address] [place] [address] Dejan Barajas.O. [id number] WBC (Bld) [#/Vol] 9.48 10*3/uL Normal 4.50-11.00 [facility] Comment on above: Performed By: #### L [id number] #### ONED FSED POCT LAB [address] [place] [address] Dejan Barajas.OLeonela [id number] POC D-DIMER Osmel 5 POC D-DIMER 797 ng/mL DDU High <350 [facility] Comment on above: Order Comment: A D-D [...] #### ONED FSED POCT LAB [address] [place], [place] [address] Osiel Nelson D.O. [id number] POC TROPONIN I Osmel 2024 POC TROPONIN I < Normal <0.05 [facility] Comment on above: Performed By: #### [id number] #### ONED FSED POCT LAB [address] [place], [place] [address] Osiel Nelson D.O. [id number] Laboratory - Chemistry and C hemistry - challengeOrdered By: Sarah Ramos on 12-12-2024 Glucose Ql (U) Negative [facility] Laboratory - UrinalysisOrder ed By: Sarah Ramos on 12-12-2024 Protein Ql (U) Negative [facility] [employer] Office Visit Reporton 12-12-2024 [facility] Office Visit Report [facility] [address], [address] [place] [address] OFFICE VISIT Date of Service: 12/12/24 MR#: [id number] Acct: [id number] Name: NAN MEYERS Rep #: [id number] : 2000 Provider: Dr. Sarah Zamudio DO Age/Sex: 24/F Location: [facility] Status: Signed Intake Vital Signs 09/16/24 11:33 11/14/24 11:40 12/12/24 13:20 12/12/24 13:21 Height 5 ft 5 ft 5 ft 5 ft Weight: 154 lb 6 oz BMI 30.1 BP 118/66 Intake Visit Reasons: 21wk ob [employer] Required: No Is patient in pain?: No [...] baby current occupational status: employed current occupation: [employer] current occupational exposures/hazards: No pets and animals: [...] physical activity do you participate in: none christopher/restorationist: None seatbelt use: always do you feel safe at home: Yes additional social history: BF: Edward - [employer] History 2 Elective abortions Hx Para 0 [...] Br US (more content not included)... Normal [facility] Chlamydia/GC VISHNU aptimaon CHLAMY,NUC ACID Negative Normal Negative [facility] Comment on above: Performed By: #### L 7000.1800 #### [facility] Laboratory [address] [place], [place], [id number] GC BY NUC ACID Negative Normal Negative [facility] Comment on above: Result Comment: Perf ormed at: =G - [facility] [address] [id number] Public Information Officer: Birdie Tobin MD, Phone: [phone] Performed By: #### L 7000.1800 #### [facility] Laboratory [address] [place], [place], [address] Chlamydia trachomatis rRNA d etection by probe and target amplification methodOrdered By: Glendy Arvizu on 11-14-2024 C. trachomatis rRNA VISHNU+probe Ql (Unsp spec) Negative Negative [facility] Laboratory - Chemistry and C hemistry - challengeOrdered By: Glendy Arvizu on 11-14-2024 Bilirubin Ql (U) Negative [facility] Glucose Ql (U) Negative [facility] Ketones Ql (U) Negative [facility] pH (U) 7 [pH] [facility] Specific gravity (U) [Rel density] 1.010 [facility] Urobilinogen (U) [Mass/Vol] Negative [facility] Laboratory - Hematology and Cell countsOrdered By: Glendy Arvizu on 11-14-2024 Hemoglobin Ql (U) Negative [facility] Laboratory - Specimen inform ationOrdered By: Glendy Arvizu on 11-14-2024 Clarity (U) Clear [facility] Color (U) Yellow [facility] Laboratory - UrinalysisOrder ed By: Glendy Arvizu on 11-14-2024 Nitrite Ql (U) Negative [facility] Protein Ql (U) Trace [facility] Neisseria gonorrhoeae nuclei c acid detection by amplified probe techniqueOrdered By: Glendy Arvizu on 11-14-2024 N. gonorrhoeae DNA VISHNU+probe Ql (Unsp spec) Negative Negative [facility] Comment on above: Performed at: =[address] [id number] Director: Birdie Tobin MD, Phone: [phone] No Panel InformationOrdered By: Glendy Arvizu on 11-14-2024 Urine Leukocytes Negatve [facility] Urine Non-Hemolyzed Blood [facility] [employer] [facility] Office Visit Reporton 11-14-2024 [facility] Office Visit Report [facility], [address] [place] [address] OFFICE VISIT Date of Service: 11/14/24 MR#: [id number] Acct: [id number] Name: CLAUDYNAN RIVERAN Rep #: [id number] : 2000 Provider: NURYS Swenson ams Age/Sex: 24/F Location: [facility] Status: Signed Intake Vital Signs 09/16/24 11:33 11/02/24 09:08 11/14/24 11:40 Height 5 ft 5 ft 5 ft Weight: 143 lb 8 oz BMI 28.0 BP 128/71 H Intake Visit Reasons: 17wk ob Chief Complaint: 17wk OB [employer] Required: No Is patient in pain?: No [...] baby current occupational status: employed current occupation: [employer] current occupational exposures/hazards: No pets and animals: [...] physical activity do you participate in: none christopher/restorationist: None seatbelt use: always do you feel safe at home: Yes additional social history: BF: [place] History 2 Elective abortions Hx Para 0 [...] Right ovarian tubal HPI 17wk ob Details: NNA MEYERS is a 24 year old who [...] -???-???-???-???-??? -???-???-???-?? (more content not included)... Normal [facility] Absolute lymphocyte countOrd ered By: Mike Dill on 11-02-2024 Lymphocytes Auto (Unsp spec) [#/Vol] 2.52 10*3/uL 0.83-4.51 [facility] Absolute neutrophil countOrd ered By: Mike Dill on 11-02-2024 Neutrophils (Bld) [#/Vol] 5.1 10*3/uL 2.0-7.7 [facility] Anion gap in Serum or Plasma Ordered By: Mike Dill on 11-02-2024 Anion gap [Moles/Vol] 12 mmol/L 5-15 [facility] Automated lymphocyte count a s percentage of total leukocytesOrdered By: Mike Dill on 11-02-2024 Lymphocytes/100 WBC Auto (Unsp spec) 29.1 % 19-41 [facility] BUN/creatinine ratioOrdered By: Mike Dill on 11-02-2024 Urea nitrogen/Creatinine [Mass ratio] 12.9 mg/mg 10- [facility] Basic Metabolic Profile (BMP )on 11-02-2024 BUN/CRE 12.9 RATIO Normal - [facility] Comment on above: Performed By: #### M 100.3200, L7000.1800, #### [facility] Laboratory [address] [place], [address] Calcium [Mass/Vol] 8.9 mg/dL Normal 7.6-11.0 [facility] Comment on above: Performed By: #### M 100.3200, L7000.1800, #### [facility] Laboratory [address] [place], [address] Chloride [Moles/Vol] 102 mmol/L Normal 98-108 [facility] Comment on above: Performed By: #### M 100.3200, L7000.1800, #### [facility] [address] [place], [address] CO2 [Moles/Vol] 20.7 mmol/L Low 21.0-32.0 [facility] Comment on above: Performed By: #### M 100.3200, L7000.1800, #### [facility] [address] [place], [address] Creatinine [Mass/Vol] 0.58 mg/dL Low 0.70-1.20 [facility] Comment on above: Performed By: #### M 100.3200, L7000.1800, #### [facility] [address] [place], [address] ECRCL 128.10 ml/min Normal 50-250 [facility] Comment on above: Performed By: #### M 100.3200, L7000.1800, #### [facility] Laboratory [address] [place], [address] GAP 12 Normal 5-15 [facility] Comment on above: Performed By: #### M 100.3200, L7000.1800, #### [facility] Laboratory [address] [place], [address] GFR/1.73 sq M.predicted among non-blacks MDRD (S/P/Bld) [Vol rate/Area] 131 mL/min/{1.73_m2} Normal >60 [facility] Comment on above: Result Comment: mL/m in/1.73m2 CKD-EPI Creatinine Equation (2020) Performed By: #### M 100.3200, L7000.1800, #### [facility] [address] [place], [address] Glucose [Mass/Vol] 87 mg/dL Normal 70-99 [facility] Comment on above: Performed By: #### M 100.3200, L7000.1800, #### [facility] [address] [place], [address] Potassium [Moles/Vol] 3.8 mmol/L Normal 3.3-5.1 [facility] Comment on above: Performed By: #### M 100.3200, L7000.1800, #### [facility] [address] [place], [address] Sodium [Moles/Vol] 135 mmol/L Normal 133-145 [facility] Comment on above: Performed By: #### M 100.3200, L7000.1800, #### [facility] Laboratory [address] [place], [address] Urea nitrogen [Mass/Vol] 7 mg/dL Normal 4-19 [facility] Comment on above: Performed By: #### M 100.3200, L7000.1800, #### [facility] Laboratory [address] [place], [address] Basophil percentageOrdered B y: Mike Dill on 11-02-2024 Basophils/100 WBC (Bld) 0.6 % 0-1 [facility] [place] Bilirubin Test strip Ql (U)O rdered By: Mike Dill on 11-02-2024 Bilirubin Ql (U) Negative Negative [facility] CBC W/Diff, Automatedon 10-07 Absolute Lymph 2.52 X10 3/uL Normal 0.83-4.51 [facility] Comment on above: Performed By: #### M 100.3200, L7000.1800, #### [facility] Laboratory [address] [place], [address] Absolute Neut 5.1 X10 3/uL Normal 2.0-7.7 [facility] Comment on above: Performed By: #### M 100.3200, L7000.1800, #### [facility] Laboratory [address] [place], [address] Basophils/100 WBC (Bld) 0.6 % Normal 0-1 [facility] [place] Comment on above: Performed By: #### M 100.3200, L7000.1800, #### [facility] Laboratory [address] [place], [address] Eosinophils/100 WBC (Bld) 1.4 % Normal 0-5 [facility] Comment on above: Performed By: #### M 100.3200, L7000.1800, #### [facility] Laboratory [address] [place], [address] Erythrocyte distribution width (RBC) [Ratio] 14.2 % Normal 11.6-14.6 [facility] Comment on above: Performed By: #### M 100.3200, L7000.1800, #### [facility] Laboratory [address] [place], [address] Hematocrit (Bld) [Volume fraction] 34.9 % Low 37-47 [facility] Comment on above: Performed By: #### M 100.3200, L7000.1800, #### [facility] Laboratory [address] [place], [address] Hemoglobin (Bld) [Mass/Vol] 12.2 g/dL Normal 12.0-15.0 [facility] Comment on above: Performed By: #### M 100.3200, L7000.1800, #### [facility] Laboratory [address] [place], [address] IG% 0.200 Normal 0.0-0.9 [facility] Comment on above: Result Comment: IG% - Immature Granulocytes (promyelocytes, myelocytes and metamyelocytes) > 1% indicates that a LEFT SHIFT is Present. Performed By: #### M 100.3200, L7000.1800, #### [facility] Laboratory [address] [place], [address] Lymphocytes/100 WBC (Bld) 29.1 % Normal 19-41 [facility] Comment on above: Performed By: #### M 100.3200, L7000.1800, #### [facility] Laboratory [address] [place], [address] MCH (RBC) [Entitic mass] 30.4 pg Normal 27.0-32.0 [facility] Comment on above: Performed By: #### M 100.3200, L7000.1800, #### [facility] Laboratory [address] [place], [address] MCHC (RBC) [Mass/Vol] 35.0 g/dL Normal 32-36 [facility] Comment on above: Performed By: #### M 100.3200, L7000.1800, #### [facility] Laboratory [address] [place], [address] MCV (RBC) [Entitic vol] 87.0 fL Normal 81-99 [facility] [place] Comment on above: Performed By: #### M 100.3200, L7000.1800, #### [facility] Laboratory [address] [place], [address] Monocytes/100 WBC (Bld) 9.6 % Normal 0-10 [facility] Comment on above: Performed By: #### M 100.3200, L7000.1800, #### [facility] Laboratory [address] [place], [address] Neutrophils/100 WBC (Bld) 59.1 % Normal 47-70 [facility] Comment on above: Performed By: #### M 100.3200, L7000.1800, #### [facility] Laboratory [address] [place], [address] Nucleated RBC (Bld) [#/Vol] 0 10*3/uL Normal 0-5 [facility] Comment on above: Performed By: #### M 100.3200, L7000.1800, #### [facility] Laboratory [address] [place], [address] Platelet mean volume (Bld) [Entitic vol] 11.7 fL Normal 6.2-12.0 [facility] Comment on above: Performed By: #### M 100.3200, L7000.1800, #### [facility] Laboratory [address] [place], [address] Platelets (Bld) [#/Vol] 278 10*3/uL Normal 150-450 [facility] Comment on above: Performed By: #### M 100.3200, L7000.1800, #### [facility] Laboratory [address] [place], [address] RBC (Bld) [#/Vol] 4.01 10*6/uL Low 4.2-5.4 [facility] Comment on above: Performed By: #### M 100.3200, L7000.1800, M100.1999 #### [facility] Laboratory [address] [place], [address] RDW SD 45.3 fl High 35.1-43.9 [facility] Comment on above: Performed By: #### M 100.3200, L7000.1800, M100.1999 #### [facility] Laboratory [address] [place], [address] WBC (Bld) [#/Vol] 8.7 10*3/uL Normal 4.4-11.0 [facility] Comment on above: Performed By: #### M 100.3200, L7000.1800, M1 #### [facility] Laboratory [address] [place], [address] Carbon dioxide, total [Moles /volume] in Central venous bloodOrdered By: Mike Dill on 11-02-2024 CO2 [Moles/Vol] 20.7 mmol/L Low 21.0-32.0 [facility] Chloride assayOrdered By: Valente Dill on 11-02-2024 Chloride [Moles/Vol] 102 mmol/L 98-108 [facility] Emergency Department Summary on 11-02-2024 Emergency Department Summary [facility] Medical Records Department [address] [place] [address] Emergency Department Summary 11/02/24 MR#: [id number] Acct: [id number] Name: NAN MEYERS Rep #: [id number] : 2000 24 From: Mike Dill DO PCP: MARISA WILLIAM JUNIOR MECHANICAL ENGINEER-C Status:DEP ER Location: ED HPI HPI - [...] she follows with Dr. Nereida Chou and [place] [facility]. Patient states she was also recently diagnosed with chlamydia. Patient was given Zithromax to take at home. Patient states she was able to keep 1 pill down but vomited the second pill. Patient was unable to complete her treatment. [facility] Medical History ADHD Anxiety , ectopic, tubal [...] baby current occupational status: employed current occupation: [employer] current occupational exposures/hazards: No pets and animals: [...] physical activity do you participate in: none christopher/restorationist: None seatbelt use: always do you feel safe at home: Yes additional social history: BF: [employer] - [employer] ROS ROS ED Constitutional Constitutional ED: Denies [...] F Temperatu (more content not included)... Normal [facility] Eosinophil percentageOrdered By: Mike Dill on 11-02-2024 Eosinophils/100 WBC (Bld) 1.4 % 0-5 [facility] Erythrocyte distribution wid th ratioOrdered By: Mike Dill on 11-02-2024 Erythrocyte distribution width (RBC) [Ratio] 14.2 % 11.6-14.6 [facility] Erythrocyte distribution wid th standard deviationOrdered By: Mike Dill on 11-02-2024 Erythrocyte distribution width (RBC) [Ratio] 45.3 fl High 35.1-43.9 [facility] Glomerular filtration rate ( GFR) estimation/1.73 sq m using serum, plasma, or whole bOrdered By: Mike Dill on 11-02-2024 GFR/1.73 sq M.predicted among non-blacks MDRD (S/P/Bld) [Vol rate/Area] 131 mL/min/{1.73_m2} >60 [facility] Comment on above: mL/min/1.73m2 CKD-EP I Creatinine Equation (2020) Hematocrit Auto (Bld) [Volum e fraction]Ordered By: Mike Dill on 11-02-2024 Hematocrit (Bld) [Volume fraction] 34.9 % Low 37-47 [facility] Hemoglobin measurementOrdere d By: Mike Dill on 11-02-2024 Hemoglobin (Bld) [Mass/Vol] 12.2 g/dL 12.0-15.0 [facility] Immature granulocytes/100 WB C Auto (Bld)Ordered By: Mike Dill on 11-02-2024 Immature granulocytes/100 WBC (Bld) 0.200 % 0.0-0.9 [facility] Comment on above: IG% - Immature Granu locytes (promyelocytes, myelocytes and metamyelocytes) > 1% indicates that a LEFT SHIFT is Present. Ketones Test strip Ql (U)Ord ered By: Mike Dill on 11-02-2024 Ketones Ql (U) 5 mg/dl High Negative [facility] MCV (mean corpuscular volume ) determinationOrdered By: Mike Dill on 11-02-2024 MCV (RBC) [Entitic vol] 87.0 fL 81-99 [facility] [place] Mean corpuscular hemoglobin (MCH) determinationOrdered By: Mike Dill on 11-02-2024 MCH (RBC) [Entitic mass] 30.4 pg 27.0-32.0 [facility] Mean corpuscular hemoglobin concentration (MCHC) determinationOrdered By: Mike Dill on 11-02-2024 MCHC (RBC) [Mass/Vol] 35.0 g/dL 32-36 [facility] Mean platelet volume determi nationOrdered By: Mike Dill on 11-02-2024 Platelet mean volume (Bld) [Entitic vol] 11.7 fL 6.2-12.0 [facility] Microscopic analysis of urin e for red blood cells (RBC)Ordered By: Mike Dill on 11-02-2024 Microscopic analysis of urine for red blood cells (RBC) > 100 SEEN /hpf 0-5 [facility] Monocyte percentageOrdered B y: Mike Dill on 11-02-2024 Monocytes/100 WBC (Bld) 9.6 % 0-10 [facility] [place] Mucus LM Ql (Urine sed)Order ed By: Mike Dill on 11-02-2024 Mucus Ql (Urine sed) 0 SEEN /hpf [facility] Neutrophil percentageOrdered By: Mike Dill on 11-02-2024 Neutrophils/100 WBC (Bld) 59.1 % 47-70 [facility] Nitrite Test strip Ql (U)Ord ered By: Mike Dill on 11-02-2024 Nitrite Ql (U) Negative Negative [facility] Nucleated red blood cell per centageOrdered By: Mike Dill on 11-02-2024 Nucleated RBC/100 WBC (Bld) [Ratio] 0 % 0-5 [facility] OB Limited With Biometricson 11-02-2024 OB Limited With Biometrics [facility] [address] [place], [place] [id number] OB Limited With Biometrics MR#: [id number] Acct: [id number] Name: NAN MEYERS Rep #: [id number] : 2000 F 24 From: Negro Schwarz DO PCP: MARISA WILLIAM JUNIOR MECHANICAL ENGINEER-C Status: REG ER Study: OB Limited With Biometrics Date of Exam: 11/02 Exam# [id number] Ordering Dr: Mike Dill DO PROCEDURE: OB [...] above diagnosis is low. Maternal- medicine in [facility] consult may be considered Reading [facility] CC: MARISA JEONG-Isadora; Dr. Mike Dill, DO Flight Superintendent: Signed Normal [facility] Platelet countOrdered By: Valente Dill on 11-02-2024 Platelets (Bld) [#/Vol] 278 10*3/uL 150-450 [facility] Potassium measurement (mass/ volume)Ordered By: Mike Dill on 11-02-2024 Potassium (Unsp spec) [Mass/Vol] 3.8 mmol/L 3.3-5.1 [facility] Protein Test strip Ql (U)Ord ered By: Mike Dill on 11-02-2024 Protein Ql (U) 500 mg/dl High Negative [facility] RBC Auto (Bld) [#/Vol]Ordere d By: Mike Dill on 11-02-2024 RBC (Bld) [#/Vol] 4.01 10*6/uL Low 4.2-5.4 [facility] Serum creatinine measurement (mass/volume)Ordered By: Mike Dill on 11-02-2024 Creatinine [Mass/Vol] 0.58 mg/dL Low 0.70-1.20 [facility] Serum glucose measurement (m ass/volume)Ordered By: Mike Dill on 11-02-2024 Glucose [Mass/Vol] 87 mg/dL 70-99 [facility] Serum human chorionic gonado tropin detection for pregnancyOrdered By: Mike Dill on 11-02-2024 HCG ( test) [place]l [address] mIU/mL High <9 [facility] Comment on above: Gestational Age0.2-1 Week: 5-50 mIU/mL1-2 Weeks: 50-500 mIU/mL2-3 Weeks: 100-5000 mIU/mL3-4 Weeks: 500-10,000 mIU/mL4-5 Weeks:1000-50,000 mIU/mL5-6 Weeks: 10,000-100,000 mIU/mL6-8 Weeks: 15,000-200,000 mIU/mL2-3 Months:10,000-100,000 mIU/mL Serum or plasma calcium bryan urement (mass/volume)Ordered By: Mike Dill on 11-02-2024 Calcium [Mass/Vol] 8.9 mg/dL 7.6-11.0 [facility] Serum or plasma urea nitroge n measurement (mass/volume)Ordered By: Mike Dill on 11-02-2024 Urea nitrogen [Mass/Vol] 7 mg/dL 4-19 [facility] Sodium levelOrdered By: Mike Dill on 11-02-2024 Sodium [Moles/Vol] 135 mmol/L 133-145 [facility] Squamous epithelial cells de tection in urine sediment by light microscopyOrdered By: Mike Dill on 11-02-2024 Epithelial cells.squamous LM Ql (Urine sed) 0-5 SEEN /hpf 5-10 [facility] Urinalysis, Completeon 11-02 EPI,SQUAMOUS 0-5 SEEN Normal 5-10 [facility] Comment on above: Order Comment: COLOR OF URINE MAY AFFECT DIPSTICK RESULTS. CLEAN CATCH Performed By: #### L 400.0001 #### [facility] Laboratory [address] [place], [address] RBC > 100 SEEN Normal 0-5 [facility] Comment on above: Order Comment: COLOR OF URINE MAY AFFECT DIPSTICK RESULTS. CLEAN CATCH Performed By: #### L 400.0001 #### [facility] Laboratory [address] [place], [address] WBC 0-5 SEEN Normal 0-5 [facility] Comment on above: Order Comment: COLOR OF URINE MAY AFFECT DIPSTICK RESULTS. CLEAN CATCH Performed By: #### L 400.0001 #### [facility] Laboratory [address] [place], [address] BACTERIA 0 SEEN Normal None Seen [facility] Comment on above: Order Comment: COLOR OF URINE MAY AFFECT DIPSTICK RESULTS. CLEAN CATCH Performed By: #### L 400.0001 #### [facility] Laboratory [address] [place], [address] Mucus Ql (Urine sed) 0 SEEN Normal [facility] Comment on above: Order Comment: COLOR OF URINE MAY AFFECT DIPSTICK RESULTS. CLEAN CATCH Performed By: #### L 400.0001 #### [facility] Laboratory [address] [place], [address] Urine clarityOrdered By: Maine Dill on 11-02-2024 Clarity (U) Turbid Clear [facility] Urine color determinationOrd ered By: Mike Dill on 11-02-2024 Color (U) Red Yellow [facility] Urine glucose detectionOrder ed By: Mike Dill on 11-02-2024 Glucose Ql (U) Normal mg/dl Normal [facility] Urine leukocyte esterase det ection by dipstickOrdered By: Mike Dill on 11-02-2024 Leukocyte esterase Test strip Ql (U) 25 /ul High Negative [facility] Urine pHOrdered By: Mike benavides on 11-02-2024 pH (U) 7.0 [pH] 5.0 - 8.0 [facility] Urine sediment bacteria coun t by microscopy (number/high power field)Ordered By: Mike Dill on 11-02-2024 Bacteria LM.HPF (Urine sed) [#/Area] 0 /[HPF] None Seen [facility] Urine specific gravity measu rementOrdered By: Mike Dill on 11-02-2024 Specific gravity (U) [Rel density] 1.010 1.002-1.030 [facility] Urine urobilinogen measureme ntOrdered By: Mike Dill on 11-02-2024 Urobilinogen Ql (U) Normal mg/dl Normal [facility] White blood cell (WBC) count Ordered By: Mike Dill on 11-02-2024 WBC (Bld) [#/Vol] 8.7 10*3/uL 4.4-11.0 [facility] White blood cell countOrdere d By: Mike Dill on 11-02-2024 White blood cell count 0-5 SEEN /hpf 0-5 [facility] hCG Titer Quant., Serumon HCG QUANT. 59478 mIU/mL High <9 non-preg [facility] Comment on above: Result Comment: Gest ational Age 0.2-1 Week: 5-50 mIU/mL 1-2 Weeks: 50-500 mIU/mL 2-3 Weeks: 100-5000 mIU/mL 3-4 Weeks: 500-10,000 mIU/mL 4-5 Weeks:1000-50,000 mIU/mL 5-6 Weeks: 10,000-100,000 mIU/mL 6-8 Weeks: 15,000-200,000 mIU/mL 2-3 Months:10,000-100,000 mIU/mL Performed By: #### M 100.3200, L7000.1800, M100.2000 #### [facility] Laboratory [address] [place], [place], [id number] Laboratory - Chemistry and C hemistry - challengeOrdered By: Negrita Vital on 10-15-2024 Glucose Ql (U) Negative [facility] Laboratory - UrinalysisOrder ed By: Negrita Vital on 10-15-2024 Protein Ql (U) Negative [facility] [employer] Office Visit Reporton 10-15-2024 [facility] [employer] [facility] Office Visit Report [facility] [address], [address] [place] [address] OFFICE VISIT Date of Service: 10/15/24 MR#: [id number] Acct: [id number] Name: NAN MEYERS Rep #: [id number] : 2000 Provider: DEBORAH grey Age/Sex: 24/F Location: [facility] Status: Signed Intake Vital Signs 08/29/23 14:31 09/16/24 11:33 10/15/24 08:32 Height 5 ft 5 ft 5 ft Weight: 143 lb 6 oz BMI 28.0 BP 116/70 Intake Visit Reasons: 13wk ob Chief Complaint: 13 Week OB [place] Required: No Is patient in pain?: No [...] baby current occupational status: employed current occupation: [employer] current occupational exposures/hazards: No pets and animals: [...] physical activity do you participate in: none christopher/restorationist: None seatbelt use: always do you feel safe at home: Yes additional social history: BF: Fausto [employer] History 2 Elective abortions Hx Para 0 [...] up zithr (more content not included)... Normal [facility] Absolute lymphocyte countOrd ered By: Nereida Chou on 10-02-2024 Lymphocytes Auto (Unsp spec) [#/Vol] 1.89 10*3/uL 0.83-4.51 [facility] Absolute neutrophil countOrd ered By: Nereida Chou on 10-02-2024 Neutrophils (Bld) [#/Vol] 6.2 10*3/uL 2.0-7.7 [facility] Automated lymphocyte count a s percentage of total leukocytesOrdered By: Nereida Chou on 10-02-2024 Lymphocytes/100 WBC Auto (Unsp spec) 21.4 % 19-41 [facility] Basophil percentageOrdered B y: Nereida Chou on 10-02-2024 Basophils/100 WBC (Bld) 0.3 % 0-1 [facility] [place] CBC W/Diff, Automatedon 09-06 Absolute Lymph 1.89 X10 3/uL Normal 0.83-4.51 [facility] Comment on above: Performed By: #### L 509.4006, BTS, L3890.6006, L100.0100, L3890.6102, L3890.6301, L509.8002 #### [facility] Laboratory [address] [place], [address] Absolute Neut 6.2 X10 3/uL Normal 2.0-7.7 [facility] Comment on above: Performed By: #### L 509.4006, BTS, L3890.6006, L100.0100, L3890.6102, L3890.6301, L509.8002 #### [facility] Laboratory [address] [place], [address] Basophils/100 WBC (Bld) 0.3 % Normal 0-1 [facility] Comment on above: Performed By: #### L 509.4006, BTS, L3890.6006, L100.0100, L3890.6102, L3890.6301, L509.8002 #### [facility] Laboratory [address] [place], [address] Eosinophils/100 WBC (Bld) 0.8 % Normal 0-5 [facility] Comment on above: Performed By: #### L 509.4006, BTS, L3890.6006, L100.0100, L3890.6102, L3890.6301, L509.8002 #### [facility] [address] [place], [address] Erythrocyte distribution width (RBC) [Ratio] 15.0 % High 11.6-14.6 [facility] Comment on above: Performed By: #### L 509.4006, BTS, L3890.6006, L100.0100, L3890.6102, L3890.6301, L509.8002 #### [facility] [address] [place], [address] Hematocrit (Bld) [Volume fraction] 38.5 % Normal 37-47 [facility] Comment on above: Performed By: #### L 509.4006, BTS, L3890.6006, L100.0100, L3890.6102, L3890.6301, L509.8002 #### [facility] [address] [place], [address] Hemoglobin (Bld) [Mass/Vol] 12.9 g/dL Normal 12.0-15.0 [facility] Comment on above: Performed By: #### L 509.4006, BTS, L3890.6006, L100.0100, L3890.6102, L3890.6301, L509.8002 #### [facility] [address] [place], [address] IG% 0.200 Normal 0.0-0.9 [facility] Comment on above: Result Comment: IG% - Immature Granulocytes (promyelocytes, myelocytes and metamyelocytes) > 1% indicates that a LEFT SHIFT is Present. Performed By: #### L 509.4006, BTS, L3890.6006, L100.0100, L3890.6102, L3890.6301, L509.8002 #### [facility] [address] [place], [address] Lymphocytes/100 WBC (Bld) 21.4 % Normal 19-41 [facility] Comment on above: Performed By: #### L 509.4006, BTS, L3890.6006, L100.0100, L3890.6102, L3890.6301, L509.8002 #### [facility] Laboratory [address] [place], [address] MCH (RBC) [Entitic mass] 29.3 pg Normal 27.0-32.0 [facility] Comment on above: Performed By: #### L 509.4006, BTS, L3890.6006, L100.0100, L3890.6102, L3890.6301, L509.8002 #### [facility] [address] [place], [address] MCHC (RBC) [Mass/Vol] 33.5 g/dL Normal 32-36 [facility] Comment on above: Performed By: #### L 509.4006, BTS, L3890.6006, L100.0100, L3890.6102, L3890.6301, L509.8002 #### [facility] Laboratory [address] [place], [address] MCV (RBC) [Entitic vol] 87.5 fL Normal 81-99 [facility] Comment on above: Performed By: #### L 509.4006, BTS, L3890.6006, L100.0100, L3890.6102, L3890.6301, L509.8002 #### [facility] [address] [place], [address] Monocytes/100 WBC (Bld) 7.3 % Normal 0-10 [facility] Comment on above: Performed By: #### L 509.4006, BTS, L3890.6006, L100.0100, L3890.6102, L3890.6301, L509.8002 #### [facility] [address] [place], [address] Neutrophils/100 WBC (Bld) 70.0 % Normal 47-70 [facility] Comment on above: Performed By: #### L 509.4006, BTS, L3890.6006, L100.0100, L3890.6102, L3890.6301, L509.8002 #### [facility] [address] [place], [address] Nucleated RBC (Bld) [#/Vol] 0 10*3/uL Normal 0-5 [facility] Comment on above: Performed By: #### L 509.4006, BTS, L3890.6006, L100.0100, L3890.6102, L3890.6301, L509.8002 #### [facility] [address] [place], [address] Platelet mean volume (Bld) [Entitic vol] 12.0 fL Normal 6.2-12.0 [facility] Comment on above: Performed By: #### L 509.4006, BTS, L3890.6006, L100.0100, L3890.6102, L3890.6301, L509.8002 #### [facility] [address] [place], [address] Platelets (Bld) [#/Vol] 339 10*3/uL Normal 150-450 [facility] Comment on above: Performed By: #### L 509.4006, BTS, L3890.6006, L100.0100, L3890.6102, L3890.6301, L509.8002 #### [facility] Laboratory [address] [place], [address] RBC (Bld) [#/Vol] 4.40 10*6/uL Normal 4.2-5.4 [facility] Comment on above: Performed By: #### L 509.4006, BTS, L3890.6006, L100.0100, L3890.6102, L3890.6301, L509.8002 #### [facility] [address] [place], [address] RDW SD 48.4 fl High 35.1-43.9 [facility] Comment on above: Performed By: #### L 509.4006, BTS, L3890.6006, L100.0100, L3890.6102, L3890.6301, L509.8002 #### [facility] [address] [place], [address] WBC (Bld) [#/Vol] 8.9 10*3/uL Normal 4.4-11.0 [facility] Comment on above: Performed By: #### L 509.4006, BTS, L3890.6006, L100.0100, L3890.6102, L3890.6301, L509.8002 #### [facility] [address] [place], [address] Eosinophil percentageOrdered By: Nereida Chou on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 17:30-0400 Systolic blood pressure 129 mm[Hg] Cher Schultz MD Work Phone: [facility] 02-10-2025 14:17-0400 Body height 152.[address] Unique Rivas MD Work Phone: 7(443)205-680135 [place] [address] 02-10-2025 14:17-0400 Body mass index (BMI) [Ratio] 33.2 kg/m2 Dr. Unique Rivas MD Work Phone: 1(640)888-236335 [place] [address] 02-10-2025 14:17-0400 Body weight 77.[address] Unique Rivas MD Work Phone: 5(973)876-721835 [place] [address] 02-10-2025 14:17-0400 Diastolic blood pressure 77 mm[Hg] Dr. Unique Rivas MD Work Phone: 7(219)603-853135 [place] [address] 02-10-2025 14:17-0400 Systolic blood pressure 128 mm[Hg] Dr. Unique Rivas MD Work Phone: 9(649)277-952835 [place] [address] 01-27-2025 09:50-0400 Body height 152.[address] Unique Rivas MD Work Phone: 9(462)669-493935 [place] [address] 01-27-2025 09:50-0400 Body mass index (BMI) [Ratio] 31.6 kg/m2 Dr. Unique Rivas MD Work Phone: 8(621)444-396235 [place] [address] 01-27-2025 09:50-0400 Body weight 73.[address] Unique Rivas MD Work Phone: 2(886)384-817435 [place] [address] 01-27-2025 09:50-0400 Diastolic blood pressure 71 mm[Hg] Dr. Unique Rivas MD Work Phone: 6(864)313-915135 [place] [address] 01-27-2025 09:50-0400 Systolic blood pressure 122 mm[Hg] Dr. Unique Rivas MD Work Phone: 1(055)351-246235 [place] [address] 01-09-2025 10:32-0400 Body height 152.[address] Unique Rivas MD Work Phone: 6(070)167-606235 [place] [address] 01-09-2025 10:32-0400 Body mass index (BMI) [Ratio] 31.4 kg/m2 Dr. Unique Rivas MD Work Phone: 3(077)469-724335 [place] [address] 01-09-2025 10:32-0400 Body weight 72.[address] Unique Rivas MD Work Phone: 5(428)311-296635 [place] [address] 01-09-2025 10:32-0400 Diastolic blood pressure 70 mm[Hg] Dr. Unique Rivas MD Work Phone: 7(245)421-575035 [place] [address] 01-09-2025 10:32-0400 Systolic blood pressure 116 mm[Hg] Dr. Unique Rivas MD Work Phone: 0(515)731-060235 [place] [address] 12-12-2024 13:21-0400 Body height 152.[address] Unique Rivas MD Work Phone: 3(679)219-520735 [place] [address] 12-12-2024 13:20-0400 Body mass index (BMI) [Ratio] 30.1 kg/m2 Dr. Unique Rivas MD Work Phone: 6(967)542-757135 [place] [address] 12-12-2024 13:20-0400 Body weight 70.[address] Unique Rivas MD Work Phone: 2(471)212-714535 [place] [address] 12-12-2024 13:20-0400 Diastolic blood pressure 66 mm[Hg] Dr. Unique Rivas MD Work Phone: 2(328)036-996735 [place] [address] 12-12-2024 13:20-0400 Systolic blood pressure 118 mm[Hg] Dr. Unique Rivas MD Work Phone: 4(471)517-488235 [place] [address] 12-10-2024 01:40-0400 Body temperature 97.2 [degF] Gato Trujillo MD Work Phone: [facility] 12-10-2024 01:40-0400 Diastolic blood pressure 62 mm[Hg] Gato Trujillo MD Work Phone: [facility] 12-10-2024 01:40-0400 Heart rate 86 /min Gato Trujillo MD Work Phone: [facility] 12-10-2024 01:40-0400 Respiratory rate 16 /min Gato Trujillo MD Work Phone: [facility] 12-10-2024 01:40-0400 Systolic blood pressure 122 mm[Hg] Gato Trujillo MD Work Phone: [facility] 12-10-2024 01:30-0400 SaO2% (BldA) [Mass fraction] 99 % Gato Trujillo MD Work Phone: [facility] 12-10-2024 01:24-0400 Body height 152.4 cm Gato Trujillo MD Work Phone: [facility] 12-10-2024 01:24-0400 Body mass index (BMI) [Ratio] 30 kg/m2 Gato Trujillo MD Work Phone: [facility] 12-10-2024 01:24-0400 Body weight 69.67 kg Gato Trujillo MD Work Phone: [facility] 11-14-2024 11:40-0400 Body height 152.[address] Unique Rivas MD Work Phone: [facility] 11-14-2024 11:40-0400 Body mass index (BMI) [Ratio] 28 kg/m2 Dr. Unique Rivas MD Work Phone: [facility] 11-14-2024 11:40-0400 Body weight 65.[address] Unique Rivas MD Work Phone: [facility] 11-14-2024 11:40-0400 Diastolic blood pressure 71 mm[Hg] Dr. Unique Rivas MD Work Phone: [facility] 11-14-2024 11:40-0400 Systolic blood pressure 128 mm[Hg] Dr. Unique Rivas MD Work Phone: 9(592)135-649935 [place] [address] 11-02-2024 15:25-0400 Body temperature 98.3 [degF] Dr. Unique Rivas MD Work Phone: 8(525)110-932435 [place] [address] 11-02-2024 15:25-0400 Diastolic blood pressure 72 mm[Hg] Dr. Unique Rivas MD Work Phone: 2(271)208-500435 [place] [address] 11-02-2024 15:25-0400 Heart rate 68 /min Dr. Unique Rivas MD Work Phone: 1(772)160-843535 [place] [address] 11-02-2024 15:25-0400 Respiratory rate 16 /min Dr. Unique Rivas MD Work Phone: 2(866)586-540735 [place] [address] 11-02-2024 15:25-0400 SaO2% (BldA) [Mass fraction] 98 % Dr. Unique Rivas MD Work Phone: 6(307)010-775335 [place] [address] 11-02-2024 15:25-0400 Systolic blood pressure 122 mm[Hg] Dr. Unique Rivas MD Work Phone: 4(531)305-509035 [place] [address] 11-02-2024 09:08-0400 Body height 152.[address] Unique Rivas MD Work Phone: 4(505)616-584535 [place] [address] 11-02-2024 09:08-0400 Body mass index (BMI) [Ratio] 28 kg/m2 Dr. Unique Rivas MD Work Phone: 3(270)801-137235 [place] [address] 11-02-2024 09:08-0400 Body weight 65.[address] Unique Rivas MD Work Phone: 6(720)470-507435 [place] [address] 10-15-2024 08:32-0400 Body height 152.[address] Unique Rivas MD Work Phone: 0(394)642-053035 [place] [address] 10-15-2024 08:32-0400 Body mass index (BMI) [Ratio] 28 kg/m2 Dr. Unique Rivas MD Work Phone: 3(193)846-039335 [place] [address] 10-15-2024 08:32-0400 Body weight 65.[address] Unique Rivas MD Work Phone: 0(390)469-836035 [place] [address] 10-15-2024 08:32-0400 Diastolic blood pressure 70 mm[Hg] Dr. Unique Rivas MD Work Phone: 6(513)463-574935 [place] [address] 10-15-2024 08:32-0400 Systolic blood pressure 116 mm[Hg] Dr. Unique Rivas MD Work Phone: 6(433)498-579035 [place] [address] 09-16-2024 11:33-0400 Body height 152.[address] Unique Rivas MD Work Phone: 2(587)619-711735 [place] [address] 09-16-2024 11:31-0400 Body mass index (BMI) [Ratio] 27.7 kg/m2 Dr. Unique Rivas MD Work Phone: 6(760)747-060635 [place] [address] 09-16-2024 11:31-0400 Body weight 64.[address] Unique Rivas MD Work Phone: 2(222)772-881335 [place] [address] 08-27-2024 10:34-0400 Body mass index (BMI) [Ratio] 27 kg/m2 Dr. Unique Rivas MD Work Phone: 7(564)255-716235 [place] [address] 08-27-2024 10:34-0400 Body weight 62.[address] Unique Rivas MD Work Phone: 2(299)089-750635 [place] [address] 08-27-2024 10:34-0400 Diastolic blood pressure 68 mm[Hg] Dr. Unique Rivas MD Work Phone: 2(794)026-774735 [place] [address] 08-27-2024 10:34-0400 Systolic blood pressure 118 mm[Hg] Dr. Unique Rivas MD Work Phone: 4(400)071-714335 [place] [address] 07-06-2024 11:01-0500 Body mass index (BMI) [Ratio] 25.89 kg/m2 Janelle Weldon APRN.SILVER SOLDERER Work Phone: [facility] 07-06-2024 11:01-0500 Body temperature 97.39 [degF] Janelle Weldon APRN.CNP Work Phone: [facility] 07-06-2024 11:01-0500 Body weight 63 kg Janelle Fatemeh MAINTENANCE [employer] WAY [employer]EMAN.SILVER [employer]DERER Work Phone: [facility] 07-06-2024 11:01-0500 Diastolic blood pressure 78 mm[Hg] Janelle Fatemeh MAINTENANCE OF WAY FOREMAN.SILVER SOLDERER Work Phone: [facility] 07-06-2024 11:01-0500 Heart rate 81 /min Janelle Fatemeh MAINTENANCE OF WAY FOREMAN.SILVER SOLDERER Work Phone: [facility] 07-06-2024 11:01-0500 Respiratory rate 20 /min Janelle Fatemeh MAINTENANCE OF WAY FOREMAN.SILVER SOLDERER Work Phone: [facility] 07-06-2024 11:01-0500 SaO2% (BldA) [Mass fraction] 97 % Janelle Fatemeh MAINTENANCE [employer]EMAN.SILVER SOLDERER Work Phone: [facility] 07-06-2024 11:01-0500 Systolic blood pressure 114 mm[Hg] Janelle Fatemeh MAINTENANCE [employer] WAY FOREMAN.SILVER SOLDERER Work Phone: [facility] 07-02-2024 17:19-0500 Body mass index (BMI) [Ratio] 26.42 kg/m2 Carlos Clutter PA-C Work Phone: [facility] 07-02-2024 17:19-0500 Body temperature 97.81 [degF] Carlos Clutter PA-C Work Phone: [facility] 07-02-2024 17:19-0500 Body weight 64.3 kg Acrlos Clutter PA-C Work Phone: [facility] 07-02-2024 17:19-0500 Diastolic blood pressure 74 mm[Hg] Carlos Clutter PA-C Work Phone: [facility] 07-02-2024 17:19-0500 Heart rate 86 /min Carlos Clutter PA-C Work Phone: [facility] 07-02-2024 17:19-0500 Respiratory rate 16 /min Carlos Clutter PA-C Work Phone: [facility] 07-02-2024 17:19-0500 SaO2% (BldA) [Mass fraction] 99 % Carlos Salazar PA-C Work Phone: [facility] 07-02-2024 17:19-0500 Systolic blood pressure 122 mm[Hg] Carlos Salazar PA-C Work Phone: [facility] 06-18-2024 11:46-0500 Body mass index (BMI) [Ratio] 26.3 kg/m2 Debbi Praisler-Wood MAINTENANCE [employer] WAY [employer]EMAN.SILVER SOLDERER Work Phone: [facility] 06-18-2024 11:46-0500 Body temperature 98.1 [degF] Debbi Praisler-Wood MAINTENANCE OF WAY FOREMAN.SILVER SOLDERER Work Phone: [facility] 06-18-2024 11:46-0500 Body weight 64 kg Debbi Praisler-Wood MAINTENANCE OF WAY FOREMAN.SILVER SOLDERER Work Phone: [facility] 06-18-2024 11:46-0500 Diastolic blood pressure 78 mm[Hg] Debbi Praisler-Wood MAINTENANCE OF WAY FOREMAN.SILVER SOLDERER Work Phone: [facility] 06-18-2024 11:46-0500 Heart rate 82 /min Debbi Praisler-Wood MAINTENANCE [employer] WAY [employer]EMAN.SILVER SOLDERER Work Phone: [facility] 06-18-2024 11:46-0500 Respiratory rate 18 /min Debbi Praisler-Wood MAINTENANCE [employer] WAY FOREMAN.SILVER SOLDERER Work Phone: [facility] 06-18-2024 11:46-0500 SaO2% (BldA) [Mass fraction] 98 % Debbi Praisler-Wood MAINTENANCE [employer] WAY [employer]EMAN.SILVER SOLDERER Work Phone: [facility] 06-18-2024 11:46-0500 Systolic blood pressure 110 mm[Hg] Debbi Praisler-Wood MAINTENANCE OF WAY FOREMAN.SILVER SOLDERER Work Phone: [facility] 05-10-2024 09:07-0500 Body height 156 cm Marisa William MAINTENANCE [employer] WAY [employer]EMAN.SILVER SOLDERER Work Phone: [facility] 05-10-2024 09:07-0500 Body mass index (BMI) [Ratio] 26.73 kg/m2 Marisa William MAINTENANCE [employer] WAY [employer]EMAN.SILVER [employer]DERER Work Phone: [facility] 05-10-2024 09:07-0500 Body weight 65.05 kg Marisa William MAINTENANCE OF WAY FOREMAN.SILVER SOLDERER Work Phone: [facility] 05-10-2024 09:07-0500 Diastolic blood pressure 64 mm[Hg] Marisa William MAINTENANCE OF WAY FOREMAN.SILVER SOLDERER Work Phone: [facility] 05-10-2024 09:07-0500 Heart rate 88 /min Marisa William MAINTENANCE OF WAY FOREMAN.SILVER SOLDERER Work Phone: [facility] 05-10-2024 09:07-0500 Respiratory rate 12 /min Marisa William MAINTENANCE OF WAY FOREMAN.SILVER SOLDERER Work Phone: [facility] 05-10-2024 09:07-0500 SaO2% (BldA) [Mass fraction] 97 % Marisa William MAINTENANCE [employer] WAY FOREMAN.SILVER SOLDERER Work Phone: [facility] 05-10-2024 09:07-0500 Systolic blood pressure 120 mm[Hg] Marisa William MAINTENANCE [employer] WAY FOREMAN.SILVER SOLDERER Work Phone: [facility] 02-05-2024 10:49-0400 Body mass index (BMI) [Ratio] 26.45 kg/m2 Naina Nichols MAINTENANCE [employer] WAY [employer]EMAN.SILVER SOLDERER Work Phone: [facility] 02-05-2024 10:49-0400 Body temperature 98.01 [degF] Naina Nichols APRN.SILVER SOLDERER Work Phone: [facility] 02-05-2024 10:49-0400 Body weight 62.9 kg Naina Nichols APRN.SILVER SOLDERER Work Phone: [facility] 02-05-2024 10:49-0400 Diastolic blood pressure 68 mm[Hg] Naina Nichols APRN.SILVER SOLDERER Work Phone: [facility] 02-05-2024 10:49-0400 Heart rate 78 /min Naina Nichols APRN.SILVER SOLDERER Work Phone: [facility] 02-05-2024 10:49-0400 Respiratory rate 21 /min Naina Nichols APRN.SILVER SOLDERER Work Phone: [facility] 02-05-2024 10:49-0400 SaO2% (BldA) [Mass fraction] 97 % Naina Nichols APRN.SILVER SOLDERER Work Phone: [facility] 02-05-2024 10:49-0400 Systolic blood pressure 102 mm[Hg] Naina Nichols APRN.SILVER SOLDERER Work Phone: [facility] 11-28-2023 13:35-0400 Body mass index (BMI) [Ratio] 26.24 kg/m2 Krislyn Aberegg PA Work Phone: [facility] 11-28-2023 13:35-0400 Body temperature 96.91 [degF] Krislyn Aberegg PA Work Phone: [facility] 11-28-2023 13:35-0400 Body weight 62.4 kg Krislyn Aberegg PA Work Phone: [facility] 11-28-2023 13:35-0400 Diastolic blood pressure 64 mm[Hg] Krislyn Aberegg PA Work Phone: [facility] 11-28-2023 13:35-0400 Heart rate 88 /min Krislyn Aberegg PA Work Phone: [facility] 11-28-2023 13:35-0400 Respiratory rate 16 /min Krislyn Aberegg PA Work Phone: [facility] 11-28-2023 13:35-0400 SaO2% (BldA) [Mass fraction] 98 % Krislyn Aberegg PA Work Phone: [facility] 11-28-2023 13:35-0400 Systolic blood pressure 112 mm[Hg] Krislyn Aberegg PA Work Phone: [facility] 11-03-2023 08:01-0400 Body mass index (BMI) [Ratio] 27.17 kg/m2 Beltran Pendlebury MAINTENANCE [employer] WAY FOREMAN.SILVER SOLDERER Work Phone: [facility] 11-03-2023 08:01-0400 Body temperature 97.3 [degF] Beltran Severinoleterry MAINTENANCE [employer] WAY FOREMAN.SILVER SOLDERER Work Phone: [facility] 11-03-2023 08:01-0400 Body weight 64.6 kg Beltran Nielsonterry MAINTENANCE [employer] WAY FOREMAN.SILVER SOLDERER Work Phone: [facility] 11-03-2023 08:01-0400 Diastolic blood pressure 68 mm[Hg] Beltran Pendlebury MAINTENANCE OF WAY FOREMAN.SILVER SOLDERER Work Phone: [facility] 11-03-2023 08:01-0400 Heart rate 82 /min Beltran Severinoleterry MAINTENANCE OF WAY FOREMAN.SILVER SOLDERER Work Phone: [facility] 11-03-2023 08:01-0400 Respiratory rate 18 /min Beltran Severinorobertterry MAINTENANCE OF WAY FOREMAN.SILVER SOLDERER Work Phone: [facility] 11-03-2023 08:01-0400 SaO2% (BldA) [Mass fraction] 97 % Beltran Severinorobertterry MAINTENANCE OF WAY FOREMAN.SILVER SOLDERER Work Phone: [facility] 11-03-2023 08:01-0400 Systolic blood pressure 116 mm[Hg] Beltran Pendrobertterry MAINTENANCE OF WAY FOREMAN.SILVER SOLDERER Work Phone: [facility] 09-01-2023 13:11-0400 Body height 154.2 cm Marisa William MAINTENANCE [employer] WAY FOREMAN.SILVER SOLDERER Work Phone: [facility] 09-01-2023 13:11-0400 Body mass index (BMI) [Ratio] 26.52 kg/m2 Marisa William MAINTENANCE [employer] WAY FOREMAN.SILVER SOLDERER Work Phone: [facility] 09-01-2023 13:11-0400 Body weight 63.05 kg Marisa William MAINTENANCE OF WAY FOREMAN.SILVER SOLDERER Work Phone: [facility] 09-01-2023 13:11-0400 Diastolic blood pressure 62 mm[Hg] Marisa William MAINTENANCE OF WAY FOREMAN.SILVER SOLDERER Work Phone: [facility] 09-01-2023 13:11-0400 Heart rate 60 /min Marisa William MAINTENANCE OF WAY FOREMAN.SILVER SOLDERER Work Phone: [facility] 09-01-2023 13:11-0400 Respiratory rate 12 /min Marisa William MAINTENANCE OF WAY FOREMAN.SILVER SOLDERER Work Phone: [facility] 09-01-2023 13:11-0400 Systolic blood pressure 110 mm[Hg] Marisajose rafael William MAINTENANCE [employer] WAY FOREMAN.SILVER SOLDERER Work Phone: [facility] 07-04-2023 15:35-0500 Body temperature 98.49 [degF] Naina Nichols APRN.SILVER SOLDERER Work Phone: [facility] 07-04-2023 15:35-0500 Body weight 63.05 kg Naina Nichols APRN.SILVER SOLDERER Work Phone: [facility] 07-04-2023 15:35-0500 Diastolic blood pressure 74 mm[Hg] Naina Nichols APRN.SILVER SOLDERER Work Phone: [facility] 07-04-2023 15:35-0500 Heart rate 92 /min Naina Nichols APRN.SILVER SOLDERER Work Phone: [facility] 07-04-2023 15:35-0500 Respiratory rate 16 /min Naina Nichols APRN.SILVER SOLDERER Work Phone: [facility] 07-04-2023 15:35-0500 SaO2% (BldA) [Mass fraction] 98 % Naina Nichols APRN.SILVER SOLDERER Work Phone: [facility] 07-04-2023 15:35-0500 Systolic blood pressure 124 mm[Hg] Naina Nichols APRN.SILVER SOLDERER Work Phone: [facility] 06-26-2023 16:08-0500 Body temperature 98.01 [degF] May Delaney MAINTENANCE OF WAY FOREMAN.SILVER SOLDERER Work Phone: [facility] 06-26-2023 16:08-0500 Body weight 63.96 kg May Koeniger MAINTENANCE [employer] WAY FOREMAN.SILVER SOLDERER Work Phone: [facility] 06-26-2023 16:08-0500 Diastolic blood pressure 70 mm[Hg] May Delaney MAINTENANCE OF WAY FOREMAN.SILVER SOLDERER Work Phone: [facility] 06-26-2023 16:08-0500 Heart rate 102 /min May Delaney MAINTENANCE OF WAY FOREMAN.SILVER SOLDERER Work Phone: [facility] 06-26-2023 16:08-0500 Respiratory rate 18 /min May Delaney MAINTENANCE OF WAY FOREMAN.SILVER SOLDERER Work Phone: [facility] 06-26-2023 16:08-0500 SaO2% (BldA) [Mass fraction] 98 % May Delaney MAINTENANCE [employer] WAY FOREMAN.SILVER SOLDERER Work Phone: [facility] 06-26-2023 16:08-0500 Systolic blood pressure 122 mm[Hg] May Delaney MAINTENANCE [employer] WAY FOREMAN.SILVER SOLDERER Work Phone: [facility] 04-20-2023 12:42-0500 Body temperature 98.2 [degF] Kj Amaya MD Work Phone: [facility] 04-20-2023 12:42-0500 Body weight 62.14 kg Kj Amaya MD Work Phone: [facility] 04-20-2023 12:42-0500 Diastolic blood pressure 73 mm[Hg] Kj Amaya MD Work Phone: [facility] 04-20-2023 12:42-0500 Heart rate 83 /min Kj Amaya MD Work Phone: [facility] 04-20-2023 12:42-0500 Respiratory rate 18 /min Kj Amaya MD Work Phone: [facility] 04-20-2023 12:42-0500 SaO2% (BldA) [Mass fraction] 99 % Kj Amaya MD Work Phone: [facility] 04-20-2023 12:42-0500 Systolic blood pressure 137 mm[Hg] Kj Amaya MD Work Phone: [facility] 03-29-2023 07:12-0500 Body height 155.5 cm Marisa William MAINTENANCE [employer] WAY FOREMAN.SILVER SOLDERER Work Phone: [facility] 03-29-2023 07:12-0500 Body weight 61.78 kg Marisa William MAINTENANCE OF WAY FOREMAN.SILVER SOLDERER Work Phone: [facility] 03-29-2023 07:12-0500 Diastolic blood pressure 62 mm[Hg] Marisa William MAINTENANCE OF WAY FOREMAN.SILVER SOLDERER Work Phone: [facility] 03-29-2023 07:12-0500 Heart rate 69 /min Marisa William MAINTENANCE OF WAY FOREMAN.SILVER SOLDERER Work Phone: [facility] 03-29-2023 07:12-0500 Respiratory rate 12 /min Marisa William MAINTENANCE OF WAY FOREMAN.SILVER SOLDERER Work Phone: [facility] 03-29-2023 07:12-0500 SaO2% (BldA) [Mass fraction] 98 % Marisa William MAINTENANCE OF WAY FOREMAN.SILVER SOLDERER Work Phone: [facility] 03-29-2023 07:12-0500 Systolic blood pressure 98 mm[Hg] Marisa William MAINTENANCE OF WAY FOREMAN.SILVER SOLDERER Work Phone: [facility] 02-28-2023 12:02-0400 Body temperature 98.1 [degF] Janie Athy PA-C Work Phone: [facility] 02-28-2023 12:02-0400 Body weight 60.33 kg Janie Athy PA-C Work Phone: [facility] 02-28-2023 12:02-0400 Diastolic blood pressure 68 mm[Hg] Janie Athy PA-C Work Phone: [facility] 02-28-2023 12:02-0400 Heart rate 96 /min Janie Athy PA-C Work Phone: [facility] 02-28-2023 12:02-0400 Respiratory rate 16 /min Janie Athy PA-C Work Phone: [facility] 02-28-2023 12:02-0400 SaO2% (BldA) [Mass fraction] 97 % Janie Holder PA-C Work Phone: [facility] 02-28-2023 12:02-0400 Systolic blood pressure 122 mm[Hg] Janie Holder PA-C Work Phone: [facility] 02-21-2023 14:00-0400 Body height 152.[address] Unique Rivas Work Phone: 8(128)533-654117 [place] [address] 02-21-2023 13:59-0400 Body mass index (BMI) [Ratio] 26.2 kg/m2 Dr. Unique Rivas Work Phone: 6(569)869-348335 [place] [address] 02-21-2023 13:59-0400 Body weight 60.[address] Unique Rivas Work Phone: 7(960)387-762135 [place] [address] 02-13-2023 13:26-0400 Body mass index (BMI) [Ratio] 25.8 kg/m2 Dr. Unique Rivas Work Phone: 2(893)734-256135 [place] [address] 02-13-2023 13:26-0400 Body weight 60.[address] Unique Rivas Work Phone: 3(107)957-112735 [place] [address] 02-13-2023 13:26-0400 Diastolic blood pressure 84 mm[Hg] Dr. Unique Rivas Work Phone: 2(208)167-382735 [place] [address] 02-13-2023 13:26-0400 Systolic blood pressure 120 mm[Hg] Dr. Unique Rivas Work Phone: 7(318)293-664035 [place] [address] 01-30-2023 08:13-0400 Body height 152.4 cm [facility] 01-30-2023 08:13-0400 Body mass index (BMI) [Ratio] 25.4 kg/m2 [facility] 01-30-2023 08:13-0400 Body temperature 97.6 [degF] [facility] 01-30-2023 08:13-0400 Body weight 59.14 kg [facility] 01-30-2023 08:13-0400 Diastolic blood pressure 78 mm[Hg] [facility] 01-30-2023 08:13-0400 Heart rate 64 /min [facility] 01-30-2023 08:13-0400 Respiratory rate 14 /min [facility] 01-30-2023 08:13-0400 SaO2% (BldA) [Mass fraction] 98 % [facility] 01-30-2023 08:13-0400 Systolic blood pressure 118 mm[Hg] [facility] 01-24-2023 17:08-0400 Body temperature 97.81 [degF] Lizette Kinney MAINTENANCE [employer] WAY FOREMAN.SILVER SOLDERER Work Phone: [facility] 01-24-2023 17:08-0400 Body weight 60.15 kg Lizette Kinney MAINTENANCE OF WAY FOREMAN.SILVER SOLDERER Work Phone: [facility] 01-24-2023 17:08-0400 Diastolic blood pressure 78 mm[Hg] Lizette Kinney MAINTENANCE OF WAY FOREMAN.SILVER SOLDERER Work Phone: [facility] 01-24-2023 17:08-0400 Heart rate 79 /min Lizette Kinney MAINTENANCE OF WAY FOREMAN.SILVER SOLDERER Work Phone: [facility] 01-24-2023 17:08-0400 Respiratory rate 18 /min Lizette Kinney MAINTENANCE OF WAY FOREMAN.SILVER SOLDERER Work Phone: [facility] 01-24-2023 17:08-0400 SaO2% (BldA) [Mass fraction] 99 % Lizette Kinney MAINTENANCE OF WAY FOREMAN.SILVER SOLDERER Work Phone: [facility] 01-24-2023 17:08-0400 Systolic blood pressure 110 mm[Hg] Lizette Kinney MAINTENANCE OF WAY FOREMAN.SILVER SOLDERER Work Phone: [facility] 01-19-2023 14:29-0400 Body temperature 97.81 [degF] Kj Amaya MD Work Phone: [facility] 01-19-2023 14:29-0400 Body weight 58.97 kg Kj Amaya MD Work Phone: [facility] 01-19-2023 14:29-0400 Diastolic blood pressure 60 mm[Hg] Kj Amaya MD Work Phone: [facility] 01-19-2023 14:29-0400 Heart rate 104 /min Kj Amaya MD Work Phone: [facility] 01-19-2023 14:29-0400 Respiratory rate 16 /min Kj Amaya MD Work Phone: [facility] 01-19-2023 14:29-0400 SaO2% (BldA) [Mass fraction] 99 % Kj Amaya MD Work Phone: [facility] 01-19-2023 14:29-0400 Systolic blood pressure 124 mm[Hg] Kj Amaya MD Work Phone: [facility] 10-25-2022 14:02-0400 Body temperature 98.1 [degF] Janie Athy PA-C Work Phone: [facility] 10-25-2022 14:02-0400 Body weight 55.88 kg Janie Athy PA-C Work Phone: [facility] 10-25-2022 14:02-0400 Diastolic blood pressure 74 mm[Hg] Janie Athy PA-C Work Phone: [facility] 10-25-2022 14:02-0400 Heart rate 82 /min Janie Athy PA-C Work Phone: [facility] 10-25-2022 14:02-0400 Respiratory rate 16 /min Janie Athy PA-C Work Phone: [facility] 10-25-2022 14:02-0400 SaO2% (BldA) [Mass fraction] 97 % Janie Athy PA-C Work Phone: [facility] 10-25-2022 14:02-0400 Systolic blood pressure 128 mm[Hg] Janie Athy PA-C Work Phone: [facility] 09-12-2022 15:17-0400 Body temperature 98.2 [degF] Lizette Kinney APRN.CNP Work Phone: [facility] 09-12-2022 15:17-0400 Body weight 53.98 kg Lizette Kinney MAINTENANCE [employer] WAY [employer]EMAN.SILVER SOLDERER Work Phone: [facility] 09-12-2022 15:17-0400 Diastolic blood pressure 60 mm[Hg] Lizette Kinney MAINTENANCE OF WAY FOREMAN.SILVER SOLDERER Work Phone: [facility] 09-12-2022 15:17-0400 Heart rate 102 /min Lizette Kinney MAINTENANCE OF WAY FOREMAN.SILVER SOLDERER Work Phone: [facility] 09-12-2022 15:17-0400 Respiratory rate 16 /min Lizette Kinney MAINTENANCE OF WAY FOREMAN.SILVER SOLDERER Work Phone: [facility] 09-12-2022 15:17-0400 SaO2% (BldA) [Mass fraction] 99 % Lizette Kinney MAINTENANCE OF WAY FOREMAN.SILVER SOLDERER Work Phone: [facility] 09-12-2022 15:17-0400 Systolic blood pressure 102 mm[Hg] Lizette Kinney MAINTENANCE OF WAY FOREMAN.SILVER SOLDERER Work Phone: [facility] 06-30-2022 14:05-0500 Body temperature 98.1 [degF] Debbi Praisler-Wood MAINTENANCE OF WAY FOREMAN.SILVER SOLDERER Work Phone: [facility] 06-30-2022 14:05-0500 Body weight 53.43 kg Debbi Praisler-Wood MAINTENANCE OF WAY FOREMAN.SILVER SOLDERER Work Phone: [facility] 06-30-2022 14:05-0500 Diastolic blood pressure 64 mm[Hg] Debbi Praisler-Wood MAINTENANCE OF WAY FOREMAN.SILVER SOLDERER Work Phone: [facility] 06-30-2022 14:05-0500 Heart rate 93 /min Debbi Praisler-Wood MAINTENANCE OF WAY FOREMAN.SILVER SOLDERER Work Phone: [facility] 06-30-2022 14:05-0500 Respiratory rate 18 /min Debbi Praisler-Wood MAINTENANCE OF WAY FOREMAN.SILVER SOLDERER Work Phone: [facility] 06-30-2022 14:05-0500 SaO2% (BldA) [Mass fraction] 98 % Debbi Arceo MAINTENANCE OF WAY FOREMAN.SILVER SOLDERER Work Phone: [facility] 06-30-2022 14:05-0500 Systolic blood pressure 98 mm[Hg] Debbi Arceo MAINTENANCE OF WAY FOREMAN.SILVER SOLDERER Work Phone: [facility] 11-04-2021 09:50-0400 Body mass index (BMI) [Percentile] Per age and sex 35.88 % Unique Rivas MD Work Phone: [facility] 11-04-2021 09:50-0400 Body temperature 97.5 [degF] Unique Rivas MD Work Phone: [facility] 11-04-2021 09:50-0400 Body weight 48.22 kg Unique Rivas MD Work Phone: [facility] 11-04-2021 09:50-0400 Diastolic blood pressure 60 mm[Hg] Unique Rivas MD Work Phone: [facility] 11-04-2021 09:50-0400 Heart rate 80 /min Unique Rivas MD Work Phone: [facility] 11-04-2021 09:50-0400 Respiratory rate 18 /min Unique Rivas MD Work Phone: [facility] 11-04-2021 09:50-0400 Systolic blood pressure 110 mm[Hg] Unique Rivas MD Work Phone: [facility] 08-09-2021 10:02-0400 Body mass index (BMI) [Percentile] Per age and sex 40.69 % Kj Amaya MD Work Phone: [facility] 08-09-2021 10:02-0400 Body temperature 98.91 [degF] Kj Amaya MD Work Phone: [facility] 08-09-2021 10:02-0400 Body weight 48.99 kg Kj Amaya MD Work Phone: [facility] 08-09-2021 10:02-0400 Diastolic blood pressure 62 mm[Hg] Kj Amaya MD Work Phone: [facility] 08-09-2021 10:02-0400 Heart rate 108 /min Kj Amaya MD Work Phone: [facility] 08-09-2021 10:02-0400 Respiratory rate 16 /min Kj Amaya MD Work Phone: [facility] 08-09-2021 10:02-0400 SaO2% (BldA) [Mass fraction] 99 % Kj Amaya MD Work Phone: [facility] 08-09-2021 10:02-0400 Systolic blood pressure 106 mm[Hg] Kj Amaya MD Work Phone: [facility] Encounters Encounter Date Encounter Type Care Provider Facility Start: 03-12-2025 End: 03-12-2025 [facility] Facility[facility] Start: 03-11-2025 End: 03-11-2025 ambulatory [facility] Start: 02-28-2025 End: 02-28-2025 ambulatory [facility] Ricardo Ramos Facility:[facility] Start: 02-28-2025 End: 02-28-2025 ambulatory [facility] Start: 02-20-2025 End: 02-20-2025 ambulatory CHER SCHULTZ [facility] Start: 02-20-2025 End: 02-20-2025 Subsequent hospital visit by physician Cher Schultz MD Work Phone: [facility] Start: 02-11-2025 End: 02-11-2025 ambulatory [facility] Start: 02-10-2025 End: 02-10-2025 Patient encounter procedure Glendy HARE -[facility] Work Phone: Start: 02-10-2025 End: 02-10-[address] Unique Rivas MD Work Phone: [facility] Start: 01-29-2025 End: 01-29-[address] Unique Rivas MD Work Phone: -Lab [facility] Start: 01-29-2025 End: 01-29-2025 Patient encounter procedure Glendy Arvizu CNM -Lab [facility] Start: 01-29-2025 End: 01-29-2025 ambulatory Glendy Arvizu Facility:[facility] Start: 01-27-2025 End: 01-27-2025 Patient encounter procedure Negrita CABRERA -[facility] Work Phone: Start: 01-27-2025 End: 01-27-[address] Unique Rivas MD Work Phone: [facility] Start: 01-14-2025 End: 01-14-2025 ambulatory UNIQUE RAMIREZ [facility] Start: 01-09-2025 End: 01-09-[address] Nereida Chou MD -[facility] Work Phone: Start: 01-09-2025 End: 01-09-[address] Unique Rivas MD Work Phone: [facility] Start: 01-09-2025 End: 01-09-2025 ambulatory Nereida Chou Facility:[facility] Start: 12-19-2024 End: 12-19-2024 Emergency department patient visit PHYSICIAN [facility] Start: 12-16-2024 End: 12-16-2024 ambulatory NEGRITA VITAL [facility] Start: 12-12-2024 End: 12-12-[address] Sarah Ravi DO -[facility] Work Phone: Start: 12-12-2024 End: 12-12-[address] Unique Rivas MD Work Phone: [facility] Start: 12-10-2024 End: 12-10-2024 ambulatory GATO [facility] Start: 12-10-2024 End: 12-10-2024 Subsequent hospital visit by physician Gato Trujillo MD Work Phone: [facility] Start: 12-02-2024 End: 12-02-[address] ZAHRAA [facility] Start: 11-14-2024 End: 11-14-[address] Unique Rivas MD Work Phone: -Laboratory Specimen Start: 11-14-2024 End: 11-14-2024 Patient encounter procedure Glendy Arvizu CN -Laboratory Specimen Work Phone: Start: 11-14-2024 End: 11-14-2024 Patient encounter procedure Glendy Arvizu CNM -[facility] Work Phone: Start: 11-14-2024 End: 11-14-[address] Unique Rivas MD Work Phone: -[facility] Start: 11-14-2024 End: 11-14-2024 ambulatory Glendy Arvizu Facility:[facility] Start: 11-02-2024 End: 11-02-2024 Emergency department patient visit Dr. Unique Rivas MD Work Phone: -Emergency Department Work Phone: Start: 10-15-2024 End: 10-15-2024 Patient encounter procedure Negrita Vital SPORTS BETTING MANAGER-C -[facility] Work Phone: Start: 10-15-2024 End: 10-15-[address] Unique Rivas MD Work Phone: [facility]] Services Work Phone: Start: 10-02-2024 End: 10-02-[address] Unique Rivas MD Work Phone: [facility] Work Phone: Start: 10-02-2024 End: 10-02-[address] Nereida Chou MD -Lab [facility] Start: 10-02-2024 End: 10-02-2024 ambulatory Nereida Chou Facility:[facility] Start: 09-16-2024 End: 09-16-[address] Unique Rivas MD Work Phone: [facility] Work Phone: Start: 09-16-2024 End: 09-16-[address] Nereida Chou MD -Laboratory Specimen Work Phone: Start: 09-16-2024 End: 09-16-[address] Sarah Ravi DO -[facility] Work Phone: Start: 09-16-2024 End: 09-16-2024 ambulatory Sarah Ravi Facility:[facility] Start: 09-16-2024 End: 09-16-2024 ambulatory Nereidadeondre Chou Facility:[facility] Start: 08-27-2024 End: 08-27-[address] Nereida Chou MD -[facility] Work Phone: Start: 08-27-2024 End: 08-27-2024 ambulatory Nereida Chou Facility:[facility] Start: 07-30-2024 End: 07-30-2024 Telephone encounter Marisa William APRN.SILVER SOLDERER Work Phone: [facility] Comment on above: Orders Start: 07-07-2024 End: 09-06-2024 Follow-up encounter Naina Nichols APRN.SILVER SOLDERER Work Phone: [facility] Start: 07-06-2024 End: 07-06-2024 ambulatory MARISA WILLIAM Facility:[facility] Start: 07-06-2024 End: 07-06-2024 Patient encounter procedure Janelle Weldon APRN.SILVER SOLDERER Work Phone: [facility] Comment on above: Rhinosinusitis (Prim maru Dx) Start: 07-02-2024 End: 07-02-2024 ambulatory MARISA WILLIAM Facility:[facility] Start: 07-02-2024 End: 07-02-2024 Office outpatient visit 25 minutes Carlos Salazar PA-C Work Phone: [facility] Comment on above: Sore throat (Primary Dx); Acute pharyngitis, unspecified etiology Start: 06-19-2024 End: 08-19-2024 Follow-up encounter tSef AGUDELO Work Phone: [facility] Start: 06-18-2024 End: 06-18-2024 ambulatory MARISA WILLIAM Facility:[facility] Start: 06-18-2024 End: 06-18-2024 Patient encounter procedure Debbi Arceo MAINTENANCE OF WAY FOREMAN.SILVER SOLDERER Work Phone: [facility] Comment on above: Flu-like symptoms (P rimary Dx) Start: 05-10-2024 End: 05-10-2024 ambulatory MARISA WILLIAM Facility:[facility] Start: 05-10-2024 Encounter for genera l adult medical examination without abnormal findings MARISA WILLIAM [facility] Start: 05-10-2024 End: 05-10-2024 Patient encounter procedure Marisa William MAINTENANCE OF WAY FOREMAN.SILVER SOLDERER Work Phone: [facility] Comment on above: Wellness examination (Primary Dx); Family history of hypothyroidism; Right leg pain Start: 05-10-2024 End: 05-10-2024 Patient encounter status Marisa William MAINTENANCE OF WAY FOREMAN.SILVER SOLDERER Work Phone: [facility] Work Phone: Start: 04-23-2024 End: 04-23-2024 ambulatory Raul AGUDELO Facility:[facility] Start: 02-05-2024 End: 02-05-2024 ambulatory MARISA WILLIAM Facility:[facility] Start: 02-05-2024 End: 02-05-2024 Patient encounter procedure Naina Nichols MAINTENANCE OF WAY FOREMAN.SILVER SOLDERER Work Phone: [facility] Comment on above: URI, acute (Primary Dx) Start: 11-28-2023 End: 11-28-2023 ambulatory MARISA WILLIAM Facility:[facility] Start: 11-28-2023 End: 11-28-2023 Patient encounter procedure Stef AGUDELO Work Phone: [facility] Comment on above: Headache, unspecifie d headache type (Primary Dx) Start: 11-03-2023 End: 11-03-2023 ambulatory MARISA WILLIAM Facility:[facility] Start: 11-03-2023 End: 11-03-2023 Office outpatient visit 15 minutes Beltran Carreon MAINTENANCE OF WAY FOREMAN.SILVER SOLDERER Work Phone: [facility] Comment on above: Pain of right lower extremity (Primary Dx) Start: 09-01-2023 End: 09-01-2023 ambulatory MARISAJOSE RAFAEL [place] Facility:[facility] Start: 09-01-2023 End: 09-01-2023 Patient encounter procedure Marisa William MAINTENANCE OF WAY FOREMAN.SILVER SOLDERER Work Phone: [facility] [place] Comment on above: Wellness examination (Primary Dx) Start: 09-01-2023 End: 09-01-2023 Patient encounter status Marisa William MAINTENANCE OF WAY FOREMAN.SILVER SOLDERER Work Phone: [facility] Work Phone: Start: 07-04-2023 End: 07-04-2023 Patient encounter procedure Naina Nichols MAINTENANCE OF WAY FOREMAN.SILVER SOLDERER Work Phone: [facility] Comment on above: Acute otitis media, left (Primary Dx); Sore throat Start: 06-26-2023 End: 06-26-2023 Patient encounter procedure May Delaney MAINTENANCE OF WAY FOREMAN.SILVER SOLDERER Work Phone: [facility] Comment on above: Exposure to SARS-ass ociated coronavirus (Primary Dx) Start: 04-20-2023 End: 04-20-2023 Patient encounter procedure Kj Amaya MD Work Phone: [facility] Comment on above: Acute hip pain, righ t (Primary Dx) Start: 03-29-2023 End: 03-29-2023 Patient encounter procedure Marisa William APRN.SILVER SOLDERER Work Phone: [facility] [place] Comment on above: Wellness examination (Primary Dx) Start: 03-29-2023 End: 03-29-2023 Patient encounter status Marisa William MAINTENANCE OF WAY FOREMAN.SILVER SOLDERER Work Phone: [facility] Work Phone: Start: 02-28-2023 End: 02-28-2023 Patient encounter procedure Janie RIVASC Work Phone: [facility] Comment on above: Nausea (Primary Dx) Start: 02-21-2023 End: 02-21-[address] Unique Rivas Work Phone: [facility] Work Phone: Start: 02-21-2023 End: 02-21-[address] Unique Rivas Work Phone: [facility]-Laboratory, Specimen Work Phone: Start: 02-21-2023 End: 02-21-[address] Unique Rivas Work Phone: [facility] Work Phone: Start: 02-13-2023 End: 02-13-[address] Unique Rivas Work Phone: [facility] Work Phone: Start: 01-30-2023 End: 01-30-2023 Emergency department patient visit [facility]-Emergency Department Work Phone: Start: 01-24-2023 End: 01-24-2023 Patient encounter procedure Lizette Kinney MAINTENANCE OF WAY FOREMAN.SILVER SOLDERER Work Phone: [facility] Comment on above: Nausea vomiting and diarrhea (Primary Dx) Start: 01-19-2023 End: 01-19-2023 Patient encounter procedure Kj Amaya MD Work Phone: [facility] Comment on above: Costochondritis (Ale olamide Dx) Start: 10-25-2022 End: 10-25-2022 Patient encounter procedure Janie RIVASC Work Phone: [facility] Comment on above: Fluid level behind t ympanic membrane of right ear (Primary Dx); Headache, unspecified headache type Start: 09-12-2022 End: 09-12-2022 Patient encounter procedure Lizette Kinney MAINTENANCE OF WAY FOREMAN.SILVER SOLDERER Work Phone: [facility] Comment on above: URI, acute (Primary Dx); Pharyngitis, unspecified etiology Start: 06-30-2022 End: 06-30-2022 Patient encounter procedure Debbi Arceo MAINTENANCE OF WAY FOREMAN.SILVER SOLDERER Work Phone: [facility] Comment on above: Encounter for screen ing laboratory testing for COVID-19 virus (Primary Dx) Start: 06-30-2022 Telephone encounter May harris MD Work Phone: [facility] Comment on above: [facility] COVID Outr each Start: 02-23-2022 Refill Unique Liu ed, MD Work Phone: [facility] [place] Comment on above: Refill Request Start: 01-25-2022 Refill Unique Liu ed, MD Work Phone: [facility] [place] Comment on above: Refill Request Start: 01-24-2022 End: 01-24-2022 Patient encounter procedure Nurse [facility] [place] Comment on above: Encounter for immuni zation (Primary Dx) Refill Request Start: 01-22-2022 Refill Unique Liu ed, MD Work Phone: [facility] Comment on above: Refill Request Start: 01-21-2022 End: 01-21-2022 Patient encounter procedure Nurse Rosales [facility] Comment on above: Encounter for PPD sk [...] Refill Tessa Martinez PA-C Work Phone: [facility] Comment on above: Refill Request Start: 12-01-2021 Telephone encounter Angie Maya RN [facility] Comment on above: [facility] COVID Outr each Start: 11-04-2021 End: 11-04-2021 Patient encounter procedure Unique Rivas MD Work Phone: [facility] [place] Comment on above: Attention deficit hy peractivity disorder (ADHD), predominantly inattentive type (Primary Dx); Anxiety Start: 10-22-2021 Refill Unique Liu ed, MD Work Phone: [facility] Comment on above: Refill Request Start: 09-20-2021 Refill Unique Liu ed, MD Work Phone: [facility] [place] Comment on above: Refill Request Start: 09-18-2021 Refill Unique Liu ed, MD Work Phone: [facility] Comment on above: Refill Request Start: 08-09-2021 [...] MD Work Phone: Start: 10-02-[address] Lluvai Rivas MD Work Phone: Start: 10-02-2024 Hepatitis [...] HCV Quant by PCR testing - HCVPCR [id number] Non Reactive: < 0.8 Equivocal: >/= 0.8 [...] no HPV testing was performed.Performed at: [address] [id number] Director: Birdie Tobin MD, Phone: [phone] Start: 09-16-[address] Elma Rivas MD Work Phone: Start: 07-02-2024 STREP A MOLECULAR (POC) Lizette Kinney MAINTENANCE OF WAY FOREMAN.SILVER SOLDERER Work Phone: Start: 07-04-2023 STREP A MOLECULAR (POC) [facility] Provider Start: 02-21-[address] Unique Rivas Work Phone: Start: 02-21-2023 Chlamydia trachomatis (PCR) Dr. Unique Rivas Work Phone: Start: 09-12-2022 STREP A MOLECULAR (POC) Lizette Kinney MAINTENANCE OF WAY FOREMAN.SILVER SOLDERER Work Phone: Start: 01-24-2022 INFLUENZA VACCINE QUADRIVALENT [...] RSV VACCINE (1 - 1-dose 75+ series) [facility] Start: 05-10-2025 Covid-19 Vaccine ( season) Covid-19 Vaccine ( season) [facility] Comment on above: Postponed from 01/06 (Declined at this time) Start: 01-29-2025 End: 01-29-2025 Patient encounter procedure Departed Clinical -Lab [facility] Start: 01-06-2025 COVID-19 VACCINE ( season) COVID-19 VACCINE ( season) [facility] Start: 01-06-2025 Influenza vaccination INFLUENZA VACC INE (#1) [facility] Start: 11-04-2024 Influenza vaccination Influenza Vacc ine (#1) [facility] Comment on above: Postponed from 01/06 (Declined at this time) Start: 11-02-2024 [facility] Start: 09-16-2024 Liquid based cervica l cytology screening [facility] Start: 07-02-2024 End: 07-02-2024 ambulatory 07/02/2024 12:00 PM EST OT/PT/Speech Visit [facility] [address] [place] [address] Lizette Andrews, PT My right leg [facility] Comment on above: My right leg Start: 05-10-2024 End: 08-09-2024 CBC W Auto Differential panel - Blood COMPLETE BLOOD COUNT AND DIFFERENTIAL Lab Routine Wellness examination Expected: 05/10/2024, Expires: 08/09/2024 [facility] Comment on above: Expected: 05/10/2024 , Expires: 08/09/2024 Start: 05-10-2024 End: 08-09-2024 Comprehensive metabolic 2000 panel - Serum or Plasma COMPREHENSIVE METABOLIC PANEL Lab Routine Wellness examination Expected: 05/10/2024, Expires: 08/09/2024 [facility] Work Phone: Comment on above: Expected: 05/10/2024 , Expires: 08/09/2024 Start: 05-10-2024 End: 08-09-2024 Hemoglobin A1c in Blood HEMOGLOBIN A1C Lab Routine Wellness examination Expected: 05/10/2024, Expires: 08/09/2024 [facility] Comment on above: Expected: 05/10/2024 , Expires: 08/09/2024 Start: 05-10-2024 End: 08-09-2024 Lipid 1996 panel - Serum or Plasma LIPID PANEL BASIC Lab Routine Wellness examination Expected: 05/10/2024, Expires: 08/09/2024 [facility] Comment on above: Expected: 05/10/2024 , Expires: 08/09/2024 Start: 05-10-2024 End: 08-09-2024 Thyrotropin [Units/volume] in Serum or Plasma THYROID STIMULATING HORMONE Lab Routine Wellness examination Family history of hypothyroidism Expected: 05/10/2024, Expires: 08/09/2024 [facility] Comment on above: Expected: 05/10/2024 , Expires: 08/09/2024 Start: 04-22-2024 Tetanus vaccination [facility] Start: 04-22-2024 Urine microalbumin profile [facility] Start: 03-29-2024 Covid-19 Vaccine (#1) Covid-19 Vacci ne (#1) [facility] Comment on above: Postponed from 07/11 (Declined at this time) Start: 03-29-2024 Covid-19 Vaccine () Covid-19 Vaccine () [facility] Comment on above: Postponed from 01/06 (Declined at this time) Start: 01-07-2024 Covid-19 Vaccine () Covid-19 Vaccine () [facility] Start: 01-07-2024 Influenza vaccination [facility] Start: 11-16-2023 End: 11-16-2023 Patient encounter procedure 11/16/2023 8:00 AM EDT Office Visit [facility] [address] [place], [place] [id number] Marisa William, MAINTENANCE OF WAY FOREMAN.SILVER SOLDERER [address] [place], [place] [id number] Follow up from Urgent Care - Thigh pain [facility] Comment on above[facility] Start: 11-05-2023 Influenza vaccination Influenza Vacc ine (#1) [facility] Comment on above: Postponed from 01/06 (Declined at this time) Start: 05-08-2023 Behavioral Health Screening Behavioral Health Screening [facility] Start: 05-08-2023 Depression Assessment Depression Ass essment [facility] Start: 03-29-2023 End: 06-28-2023 CBC W Auto Differential panel - Blood CBC + DIFF Lab Routine Wellness examination Expected: 03/29/2023, Expires: 06/28/2023 [facility] Work Phone: Comment on above: Expected: 03/29/2023 , Expires: 06/28/2023 Start: 03-29-2023 End: 06-28-2023 Comprehensive metabolic 2000 panel - Serum or Plasma COMP METABOLIC PANEL Lab Routine Wellness examination Expected: 03/29/2023, Expires: 06/28/2023 [facility] Work Phone: Comment on above: Expected: 03/29/2023 , Expires: 06/28/2023 Start: 03-29-2023 End: 06-28-2023 Lipid 1996 panel - Serum or Plasma LIPID PANEL BASIC Lab Routine Wellness examination Expected: 03/29/2023, Expires: 06/28/2023 [facility] Work Phone: Comment on above: Expected: 03/29/2023 , Expires: 06/28/2023 Start: 2023 Pap Testing Pap Testing [facility] Start: 2023 Screening for malign ant neoplasm of cervix [facility] Start: 01-06-2023 Influenza vaccination Influenza Vacc ine (#1) [facility] Start: 12-27-2022 Adult depression screening assessment DEPRESSION SCREENING [facility] Start: 11-04-2022 Adult depression screening assessment DEPRESSION SCREENING [facility] Start: 09-12-2022 End: 09-26-2022 Influenza virus A and B RNA and SARS-CoV-2 (COVID-19) N gene panel - Respiratory specimen by VISHNU with probe detection [facility] Work Phone: Comment on above: Expected: 09/12/2022 , Expires: 09/26/2022 Start: 07-09-2022 Adult depression screening assessment DEPRESSION SCREENING [facility] Start: 05-08-2022 DEPRESSION ASSESSMENT DEPRESSION ASS ESSMENT [facility] Start: 01-06-2022 Influenza vaccination INFLUENZA (#1) [facility] Start: 12-01-2021 End: 12-15-2021 Influenza virus A and B RNA and SARS-CoV-2 (COVID-19) N gene panel - Respiratory specimen by VISHNU with probe detection CAREGIVER COVID + FLU A/B, ROUTINE Microbiology Routine Suspected 2019 novel coronavirus infection Expected: 12/01/2021, Expires: 12/15/2021 [facility] Work Phone: Comment on above: Expected: 12/01/2021 , Expires: 12/15/2021 Start: 05-08-2021 DEPRESSION ASSESSMENT DEPRESSION ASS ESSMENT [facility] Start: 01-12-2020 CHLAMYDIA SCREENING (18-24) CHLAMYDIA SCREENING (18-24) [facility] Start: 01-12-2020 Depression Screening Depression Scre ening [facility] Start: 01-12-2020 GC (GONORRHEA) SCREE DAPHNE (18) GC (GONORRHEA) SCREENING (-) [facility] Start: 01-12-2020 HEPATITIS C SCREENING HEPATITIS C SC ELLY [facility] Start: 01-12-2020 HIV SCREENING HIV SCREENING [facility] Start: 01-12-2020 Screening for Chlamy dwayne trachomatis Chlamydia Screening () [facility] Start: 2018 Meningococcal B Vacc ine (1 of 2 - Standard) Meningococcal B Vaccine (1 of 2 - Standard) [facility] Start: 2018 Meningococcal B Vacc ine: Consider Based On Risk (1 of 2 - Patient Seeks Protection) Meningococcal B Vaccine: Consider Based On Risk (1 of 2 - Patient Seeks Protection) [facility] Start: 2018 Screening for Chlamy dwayne trachomatis CHLAMYDIA SCREEN [facility] Start: 2017 HIV screening HIV SCREENING DISCUSSION [facility] Start: 01-12-2016 PEDS TO ADULT TRANSI TION ANNUAL ASSESSMENT PEDS TO ADULT TRANSITION ANNUAL ASSESSMENT [facility] Start: 01-12-2012 MENINGOCOCCAL B: Con aging department supervisor based on risk (1 of 2 - Risk Bexsero 2-dose series) MENINGOCOCCAL B: Consider based on risk (1 of 2 - Risk Bexsero 2-dose series) [facility] Start: 2007 COVID-19 VACCINE (#1) COVID-19 VACCI NE (#1) [facility] Start: 2007 COVID-19 VACCINE (1) COVID-19 VACCIN E (1) [facility] Start: 2002 COVID-19 VACCINE (#1) COVID-19 VACCI NE (#1) [facility] Start: 2002 Hepatitis C screening HEPATITI S C VIRUS SCREENING [facility] Start: 2002 Screening for Chlamy dwayne trachomatis GONORRHEA SCREEN [facility] CBC W Auto Different ial panel - Blood [facility] CBC W Auto Different ial panel - Blood [facility] Chlamydia deoxyribonucleic acid detection [facility] COVID & INFLUENZA A/ B & RSV NAAT, ROUTINE COVID & INFLUENZA A/B & RSV NAAT, ROUTINE Microbiology Routine Exposure to SARS-associated coronavirus 06/26/2023 4:20 PM EST [facility] Work Phone: COVID & INFLUENZA A/ B & RSV PCR, ROUTINE COVID & INFLUENZA A/B & RSV PCR, ROUTINE Microbiology Routine URI, acute 02/05/2024 11:27 AM EDT [facility] Work Phone: COVID & INFLUENZA A/ B & RSV PCR, ROUTINE COVID & INFLUENZA A/B & RSV PCR, ROUTINE Microbiology Routine Flu-like symptoms 06/18/2024 11:59 AM EST [facility] Work Phone: COVID & INFLUENZA A/ B & RSV PCR, ROUTINE COVID & INFLUENZA A/B & RSV PCR, ROUTINE Microbiology Routine Rhinosinusitis Ordered: 07/06/2024 [facility] Work Phone: Comment on above: Ordered: 07/06/2024 Hepatitis C antibody measurement [facility] Influenza virus A an d B RNA and SARS-CoV-2 (COVID-19) N gene panel - Respiratory specimen by VISHNU with probe detection CAREGIVER COVID + FLU A/B, ROUTINE Microbiology Routine Encounter for screening laboratory testing for COVID-19 virus 06/30/2022 3:27 PM [facility] Work Phone: Influenza virus A an d B RNA and SARS-CoV-2 (COVID-19) N gene panel - Respiratory specimen by VISHNU with probe detection COVID & INFLUENZA A/B NAAT, ROUTINE Microbiology Routine Nausea 02/28/2023 12:49 PM EDT [facility] Work Phone: Measurement of gluco se 2 hours after glucose challenge for glucose tolerance test [facility] Patient Education [facility] Work Phone: Patient referral [facility] Work Phone: PPD (TB INTRADERMAL 13477) B/O PPD (TB INTRADERMAL 67031) B/O Procedures Routine Screening-pulmonary TB Ordered: 07/30/2024 [facility] Work Phone: Comment on above: Ordered: 07/30/2024 Rubella IgG measurement [facility] Serologic test for syphilis [facility] Serologic test for syphilis [facility] Immunizations Immunization Date Immunization Notes Care Provider Fa erik 02-10-2025 tetanus toxoid, redu sofia diphtheria toxoid, and acellular pertussis vaccine, adsorbed Dr. Unique Rivas MD Work Phone: [facility] 01-24-2022 influenza, injectabl e, quadrivalent, contains preservative Nurse [facility] Work Phone: 01-24-2022 influenza virus vacc ine, unspecified formulation Kj Amaya MD Work Phone: [facility] 01-18-2022 tuberculin skin test ; purified protein derivative solution, intradermal Naina Aldair MAINTENANCE OF WAY FOREMAN.SILVER SOLDERER Work Phone: [facility] 01-03-2022 tuberculin skin test ; purified protein derivative solution, intradermal Naina Aldair MAINTENANCE OF WAY FOREMAN.SILVER SOLDERER Work Phone: [facility] 12-27-2021 hepatitis B vaccine, pediatric or pediatric/adolescent dosage Unique Rivas MD Work Phone: [facility] 11-10-2021 varicella virus vaccine Johny Martinez PA-C Work Phone: [facility] 01-26-2021 influenza, injectabl e, quadrivalent, contains preservative Kj Amaya MD Work Phone: [facility] 03-15-2018 influenza, injectabl e, quadrivalent, contains preservative Kj Amaya MD Work Phone: [facility] 03-15-2018 meningococcal polysaccharide (groups A, C, Y and W-135) diphtheria toxoid conjugate vaccine (MCV4P) Kj Amaya MD Work Phone: [facility] 06-12-2017 influenza, injectabl e, quadrivalent, contains preservative Kj Amaya MD Work Phone: [facility] 04-14-2016 Human Papillomavirus 9-valent vaccine Kj Amaya MD Work Phone: [facility] 04-14-2016 influenza, injectabl e, quadrivalent, contains preservative Kj Amaya MD Work Phone: [facility] 04-09-2015 human papilloma viru s vaccine, quadrivalent Kj Amaya MD Work Phone: [facility] 04-09-2015 influenza, injectabl e, quadrivalent, contains preservative Kj Amaya MD Work Phone: [facility] 04-22-2014 human papilloma viru s vaccine, quadrivalent Kj Amaya MD Work Phone: [facility] 04-22-2014 influenza, live, intranasal, quadrivalent Kj Amaya MD Work Phone: [facility] 04-22-2014 meningococcal polysaccharide (groups A, C, Y and W-135) diphtheria toxoid conjugate vaccine (MCV4P) Kj Amaya MD Work Phone: [facility] 04-22-2014 tetanus toxoid, redu sofia diphtheria toxoid, and acellular pertussis vaccine, adsorbed Kj Amaya MD Work Phone: [facility] 02-25-2011 influenza virus vacc ine, live, attenuated, for intranasal use Kj Amaya MD Work Phone: [facility] 02-16-2010 influenza virus vacc ine, live, attenuated, for intranasal use Kj Amaya MD Work Phone: [facility] Work Phone: 05-29-2007 diphtheria, tetanus toxoids and acellular pertussis vaccine Kj Amaya MD Work Phone: [facility] Work Phone: 05-29-2007 measles, mumps and rubella virus vaccine Kj Amaya MD Work Phone: [facility] Work Phone: 05-29-2007 poliovirus vaccine, inactivated Kj Amaya MD Work Phone: [facility] Work Phone: 05-29-2007 varicella virus vaccine Doug Amaya MD Work Phone: [facility] Work Phone: 11-24-2005 pneumococcal conjuga te vaccine, 7 valent Kj Amaya MD Work Phone: [facility] Work Phone: 08-18-2004 pneumococcal conjuga te vaccine, 7 valent Kj Amaya MD Work Phone: [facility] Work Phone: 08-21-2003 diphtheria, tetanus toxoids and acellular pertussis vaccine Kj Amaya MD Work Phone: [facility] Work Phone: 08-21-2003 haemophilus influenz ae type b vaccine, HbOC conjugate Kj Amaya MD Work Phone: [facility] Work Phone: 01-15-2003 measles, mumps and rubella virus vaccine Kj Amaya MD Work Phone: [facility] Work Phone: 01-15-2003 varicella virus vaccine Doug Amaya MD Work Phone: [facility] Work Phone: 2002 hepatitis B vaccine, pediatric or pediatric/adolescent dosage Kj Amaya MD Work Phone: [facility] Work Phone: 2002 diphtheria, tetanus toxoids and acellular pertussis vaccine Kj Amaya MD Work Phone: [facility] Work Phone: 2002 haemophilus influenz ae type b vaccine, HbOC conjugate Kj Amaya MD Work Phone: [facility] Work Phone: 2002 poliovirus vaccine, inactivated Kj Amaya MD Work Phone: [facility] Work Phone: 2002 diphtheria, tetanus toxoids and acellular pertussis vaccine Kj Amaya MD Work Phone: [facility] Work Phone: 2002 haemophilus influenz ae type b vaccine, HbOC conjugate Kj Amaya MD Work Phone: [facility] Work Phone: 2002 pneumococcal conjuga te vaccine, 7 valent Kj Amaya MD Work Phone: [facility] Work Phone: 2002 poliovirus vaccine, inactivated Kj Amaya MD Work Phone: [facility] Work Phone: 2002 diphtheria, tetanus toxoids and acellular pertussis vaccine Kj Amaya MD Work Phone: [facility] Work Phone: 2002 haemophilus influenz ae type b vaccine, HbOC conjugate Kj Amaya MD Work Phone: [facility] Work Phone: 2002 pneumococcal conjuga te vaccine, 7 valent Kj Amaya MD Work Phone: [facility] Work Phone: 2002 poliovirus vaccine, inactivated Kj Amaya MD Work Phone: [facility] Work Phone: 2002 hepatitis B vaccine, pediatric or pediatric/adolescent dosage Kj Amaya MD Work Phone: [facility] Work Phone: 2002 hepatitis B vaccine, pediatric or pediatric/adolescent dosage Kj Amaya MD Work Phone: [facility] Work Phone: Payers Date Payer Category Payer Medicaid (Managed Care) [facility]ly [facility] [id number] 2024 Self-pay [id number] 2022 Medicaid [id number] 2017 Medicaid [place] [employer] [id number] 2017-Present [phone] [address] [place] [address] Medicaid [id number] 2017 Medicaid [id number] 2002 Unknown [id number] 2.16.840.1.209996.3.579.2. 902 2002 Unknown [id number] 2.16.840.1.978736.3.579.2. 983 2002 Unknown [id number] 2.16.840.1.150240.3.579.2. 479 2002 Unknown [id number] 2.16.840.1.601934.3.579.2. 479 2002 Unknown [id number] 2.16.840.1.503087.3.579.2. 479 2002 Unknown [id number] 2.16.840.1.544606.3.579.2. 479 Unknown [id number] .840.1.046803.3.579.2. 462 Unknown [id number] .840.1.232295.3.579.2. 462 Unknown [id number] .840.1.198261.3.579.2. 462 Unknown [id number] .840.1.773150.3.579.2. 462 Unknown [id number] .840.1.723802.3.579.2. 462 Unknown [id number] 06.23.830.1.402439.3.579.2. 462 Unknown [id number] 840.1.993262.3.579.2. 462 Unknown [id number] 840.1.335542.3.579.2. 462 Unknown [id number] .840.1.494465.3.579.2. 462 Unknown [id number] 840.1.778828.3.579.2. 462 Unknown [id number] 840.1.637441.3.579.2. 462 Unknown [id number] 840.1.882232.3.579.2. 462 Unknown [id number] .0.1.282704.3.579.2. 462 Unknown [id number] 840.1.186900.3.579.2. 462 Unknown [id number] 840.1.753623.3.579.2. 462 Unknown [id number] .840.1.235264.3.579.2. 462 Unknown [id number] 840.1.759960.3.579.2. 462 Unknown [id number] .840.1.233780.3.579.2. 462 Unknown [id number] 2.16.840.1.684268.3.579.2. 462 Unknown [id number] 2.16.840.1.186369.3.579.2. 462 Social History Date Type Detail Facility Start: 02-25-2011 End: 12-10-2024 Tobacco smoking status NHIS Never smoked tobacco [facility] Work Phone: Start: 08-09-2021 End: 07-06-2024 Alcohol intake Current non-drinker of alcohol (finding) [facility] Start: 11-02-2010 End: 06-30-2022 Tobacco Comment Both parents inside and outside [facility] Start: 2002 Sex Assigned At Not on file [facility] Start: 07-30-2021 End: 12-30-2021 Exposure to SARS-CoV-2 (event) Not sure [facility] Work Phone: Start: 11-04-2021 History SDOH Alcohol Frequency 1 [facility] Start: 11-04-2021 History SDOH Alcohol Std Drinks 98 [facility] Start: 11-04-2021 History SDOH Social Connections Phone 5 [facility] Start: 11-04-2021 History SDOH Social Connections Get Together 3 [facility] Start: 11-04-2021 History SDOH Social Connections Membership 2 [facility] Start: 11-04-2021 History SDOH Social Connections Living 8 [facility] Start: 11-04-2021 History SDOH Physica l Activity MPS 0 [facility] Start: 11-04-2021 History SDOH Financial 4 [facility] History of tobacco use Passive smoker [facility] Start: 02-25-2011 End: 12-10-2024 Tobacco use and exposure Smokeless tobacco non-user [facility] Start: 11-04-2021 End: 02-20-2025 History of Social function [facility] Start: 11-04-2021 End: 02-20-2025 Social connection and isolation panel [facility] Do you belong to any clubs or organizations such as samaritan groups, unions, fraternal or athletic groups, or school groups? No [facility] Are you now , , , , never or living with a partner? Living with partner [facility] How often to you hav e a drink containing alcohol? Never [facility] How many standard dr inks containing alcohol do you have on a typical day? Patient refused [facility] How hard is it for y ou to pay for the very basics like food, housing, medical care, and heating Not very hard [facility] Do you feel stress - tense, restless, nervous, or anxious, or unable to sleep at night because your mind is troubled all the time - these days [OSQ] Not at all [facility] (I/We) worried wheth er (my/our) food would run out before (I/we) got money to buy more. Sometimes true [facility] Start: 01-30-2023 End: 02-13-2023 Tobacco smoking status [facility] Unknown if ever smoked [facility] Start: 09-09-2020 Non-smoker [facility] Start: 2002 Sex Assigned At Female [place] Are you now , , , , never or living with a partner? Refused [facility] How often to you hav e a drink containing alcohol? Monthly or less [facility] How many standard dr inks containing alcohol do you have on a typical day? 1 or 2 [facility] (I/We) worried wheth er (my/our) food would run out before (I/we) got money to buy more. Never true [facility] Start: 08-27-2024 End: 12-12-2024 Tobacco smoking status MDIS Ex-smoker (finding) [facility] Start: 12-10-2024 End: 02-20-2025 Alcoholic beverage intake Lifetime non-drinker (finding) [facility] Start: 07-31-2024 [facility] Start: 12-10-2024 Sex Female (finding) [facility] Medical Equipment Procedure Code Equipment Code [...] 10/27/2014 9:31 AM EDT Megha Arvizu [facility] 10-27-2014 Are you blind, or do you have serious difficulty seeing, even when wearing glasses No 10/27/2014 9:31 AM EDMegha Prather [facility] 10-27-2014 Do you have serious difficulty walking or climbing stairs No 10/27/2014 9:31 AM EDMegha Prather [facility] 10-27-2014 Do you have difficul ty dressing or bathing No 10/27/2014 9:31 AM EDMegha Prather [facility] Mental Status Date Assessment Result Facility 01-30-2023 Cognitive function Level Of Cons ciousness Awake;Alert;Appropriate [facility] Work Phone: 10-27-2014 Because of a physica l, mental, or emotional condition, do you have serious difficulty concentrating, remembering, or making decisions No 10/27/2014 9:31 AM EDT Nicole Arvizu [facility] No [facility] Clinical Notes 04-01-2013 to 02-20-2025 Cher Schultz [...] arrange follow up. documented in this encounter [facility] 02-20-2025 Nurse Note Discharge instructions given to patient. . Follow up care encouraged and instructed to call office tomorrow if pt needs to be seen sooner than scheduled.. Patient verbalized understanding. All personal belongings given to patient. Denied any further needs. Ambulated with steady gait out of OB unit with pt father. [facility] 02-20-2025 Miscellaneous Notes Formattin g of [...] Pt states decreased movement since last night. She hasn't completely stopped moving, just less than normal. Pt denies vaginal bleeding, leaking fluid, dysuria, cramping, n/v. Pt receives care at [facility] with Edd Vasquez. documented in this encounter [facility] 02-20-2025 Hospital Discharg e instructions Bebe Rivas RN - 02/20/2025 6:09 PM EDT Please call your [facility] office and notify them you were seen here today. They might want you to be seen sooner than your next scheduled appointment. Continue to drink plenty of fluids and rest. The following attachments cannot be sent through Care Everywhere. Movement Count ([facility]) (Citizen [place])documented in this encounter [facility] 02-20-[address] Schultz called at this time to explain pt clinical condition, pt complaints, strip reading reactive. Pt appropriate for discharge and instructed to follow up with provider and notify of recent exam. [facility] 02-20-2025 Nurse Note . Pt states decreased movement since last night. She hasn't completely stopped moving, just less than normal. Pt denies vaginal bleeding, leaking fluid, dysuria, cramping, n/v. Pt receives care at [facility] with Edd Vasquez. [facility] 02-10-2025 Progress note [facility] 02-10-2025 Progress note Note Date/Time February 10, 2025 2:32pm [facility] [address], [address] [place] [address] OFFICE VISIT Date of Service: 02/10/25 MR#: [id number] Acct: [id number] Name: NAN MEYERS Rep #: [id number] : 2000 Provider: NURYS Arvizu Age/Sex: 25/F Location: [facility] Status: Signed with Addenda ADDENDUM by Meagan Parish on 02/10/25 at 1436 Office Procedure Documentation entered by Meagan Parish 02/10/25 14:36: Immunizations Adacel(Tdap Adolesn/Adult)(PF) 2 Lf-(2.5-5-3-5)-5 Lf/0.5 mL IM syringe Performing Provider: Glendy Arvizu CNM Performing Location: [facility] Administered by: Meagan Parish on 02/10/25 14:35 Dose Route Admin Location Dispensed Lot Number Expiration Date Pack age NDC NDC Distribution A Class Lineman 0.5 mL IM Left Deltoid 0.5 mL [id number] 01/04/27 [id number] [employer]- PASTEUR VIS Given Date VIS Provided VIS Publication Date 02/10/25 Single Vaccine 24 Eligibility Eligibility Date Funding Source Not Applicable Date _ cc: ~* Signed Intake Vital Signs 01/09/25 10:32 01/27/25 09:50 02/10/25 14:17 Height 5 ft 5 ft 5 ft Weight: 170 lb BMI 33.2 BP 128/77 H Intake Visit Reasons: 30 WK OB Chief Complaint: 30wk OB [employer] Required: No Is patient in pain?: No [...] baby current occupational status: employed current occupation: [employer] current occupational exposures/hazards: No pets and animals: [...] physical activity do you participate in: none christopher/restorationist: None seatbelt use: always do you feel safe at home: Yes additional social history: BF: Fausto - [employer] History 2 Elective abortions Hx Para 0 Spontaneous abortions 0 Hx # Term Pregnancies Ectopic pregnancies 1 Hx # Pregnancies Multiple births # of living children 0 Past Pregnancies Del. Date Name GA/Weeks Outcome Route Bth Weight Gen Labor Lgth Anes t hesia Del Locatn Provider FOB 09/08/20 4 ectopic [...] is considering moving to a practice in [place] due to moving to that area. 12/12/24 [...] + @ NOB. Treated and vomited med. [place] Rx sent and zofram prior. Rpt test negative (3) History of ectopic : Status: Acute Comment: 09/08/20 - surgery by SM, was in right ovary and still has both tubes. (4) Supervision of high-risk : Status: Acute Qualifiers: Trimester: second trimester Qualified Code(s): O09.92 - Supervision of high risk , unspecified, second trimester Comment: [id number], KELTON 04/23/25, BF: Edward (5) : Status: Acute Qualifiers: Weeks of [...] this visit. GA appropriate handout given. 02/10/25 4200 <Electronically signed by Glendy acosta CNM> Date _ Glendy Arvizu CNM Cosignvalente Signature: Date (if applicable) CC: ~ [place] [employer] Work Phone: 1(125) 134-610409-22-2025 [facility] [address], [address] [place] [id number] OFFICE VISIT Date of Service: 01/27/25 MR#: [id number] Acct: [id number] Name: NAN MEYERS Rep #: [id number] : 2000 Provider: DEBORAH Vital Age/Sex: 25/F Location: [facility] Status: Signed Intake Vital Signs 12/12/24 13:21 12/12/24 13:48 01/09/25 10:32 01/27/25 09:50 Height 5 ft 5 ft 5 ft 5 ft Weight: 160 lb 9 oz 162 lb 3 oz BMI 31.4 31.6 BP 116/70 122/71 H Intake Visit Reasons: 28 WK OB/GLUCOSE [employer] Required: No Is patient in pain?: No [...] physical activity do you participate in: none christopher/restorationist: None seatbelt use: always do you feel safe at home: Yes additional social history: BF: Fausto - [employer] History 2 Elective abortions Hx Para 0 [...] is considering moving to a practice in [place] due to moving to that area. 12/12/24 [...] Monitoring, Signs and Symptoms of Preeclampsia and Ethel Education ROS Const Reports system reviewed and no additional complaints, except as documented GI Denies abdominal pain, Denies nausea and Denies vomiting Exam Const General: cooperative Nutritional Appearance: well nourished GI Palpation: soft, nontender and other (gravid) Results POC Urinalysis 2 Dip (Clinic) Office Urine Glucose Negative Last Edit by Rbeecca Leo on 01/27/25 10:03 Office Urine Protein [...] high risk , unspecified, second trimester Comment: [id number], KELTON 04/23/25, BF: Edward (2) : Status: Acute Qualifiers: Weeks of [...] + @ NOB. Treated and vomited med. [place] Rx sent and zofram prior. Rpt test [...] the past year?: No 01/27/25 1004 s SPORTS BETTING MANAGER SPORTS BETTING MANAGER-C> Date _ [place]grita [place] SPORTS BETTING MANAGER SPORTS BETTING MANAGER-C Cosigner Signature: Date (if applicable) CC: ~ [facility][1] [id number] [facility] [address] [place] [address], [address] [place] [address] OFFICE VISIT Date of Service: 01/09/25 MR#: [id number] Acct: [id number] Name: NAN MEYERS Rep #: [id number] : 2000 Provider: Dr. Greg Chou MD Age/Sex: 24/F Location: [facility] Status: Signed Intake Vital Signs 10/15/24 08:32 12/12/24 13:48 01/09/25 10:32 Height 5 ft 5 ft 5 ft Weight: 160 lb 9 oz BMI 31.4 BP 116/70 Intake Visit Reasons: 25 wk ob [employer] Required: No Is patient in pain?: No [...] baby current occupational status: employed current occupation: [employer] current occupational exposures/hazards: No pets and animals: [...] physical activity do you participate in: none christopher/restorationist: None seatbelt use: always do you feel safe at home: Yes additional social history: BF: Fausto - [employer] History 2 Elective abortions Hx Para 0 [...] is considering moving to a practice in [place] due to moving to that area. 12/12/24 [...] Monitoring, Signs and Symptoms of Preeclampsia and Ethel Education Results POC Urinalysis 2 Dip (Clinic) [...] + @ NOB. Treated and vomited med. [place] Rx sent and zofram prior. (2) History of ectopic : Status: Acute Comment: 09/08/20 - surgery by , was in right ovary and still has both tubes. (3) Supervision of high-risk : Status: Acute Qualifiers: Trimester: second trimester Qualified Code(s): O09.92 - Supervision of high risk , unspecified, second trimester Comment: [id number], KEL[place] 12/17/25, BF: Fausto (4) : Status: Acute Qualifiers: [...] jolanta COX> Date _ Nereida Chou MD [facility] Signature: Date (if applicable) CC: ~ [facility]08-05-2025 Miscellaneous Notes* Nursing Notes - Raissa Fontanez [...] of providers with [facility]. Patient and significant other deny additional [...] to change into gown. documented in this [facility]08-05-2025 Nurse Note* Nursing Notes - Raissa [...] of providers with delivering privileges within both [facility]. Patient and significant other deny additional concerns. Ambulate off unit with AVS in hand at 0200. [facility]08-05-2025 Nurse Note* Nursing Notes - Yue Stern RN - 12/10/2024 1:[address] Trujillo called with SBAR. Orders to discharge pt [facility]08-05-2025 Nurse Note* Nursing Notes - Yue [...] Up to bathroom to change into gown. [facility]07-10-2025 [facility] [address] [place] [address], [address] [place] [address] OFFICE VISIT Date of Service: 11/14/24 MR#: [id number] Acct: [id number] Name: NAN MEYERS Rep #: [id number] : 2000 Provider: NURYS Arvizu Age/Sex: 24/F Location: [facility] Status: Signed Intake Vital Signs 09/16/24 11:33 11/02/24 09:08 11/14/24 11:40 Height 5 ft 5 ft 5 ft Weight: 143 lb 8 oz BMI 28.0 BP 128/71 H Intake Visit Reasons: 17wk ob Chief Complaint: 17wk OB [employer] Required: No Is patient in pain?: No [...] baby current occupational status: employed current occupation: [employer] current occupational exposures/hazards: No pets and animals: [...] physical activity do you participate in: none christopher/restorationist: None seatbelt use: always do you feel safe at home: Yes additional social history: BF: [employer] History 2 Elective abortions Hx Para 0 [...] 17w 1d 143 lb 8 oz 128/71 Tra e -?-?-?-?--?-?-?-?-?-?-?-?- Negative 150 -?-?-?-?-?-?-?-?-?-?-?-?- KW- ER [...] is considering moving to a practice in [place] due to moving to that area. ACOG [...] + @ [facility]. Treated and vomited med. [place] Rx sent and zofram prior. (2) History of ectopic : Status: Acute Comment: 09/08/20 - surgery by , was in right ovary and still has both tubes. (3) Supervision of high-risk : Status: Acute Qualifiers: Trimester: second trimester Qualified Code(s): O09.92 - Supervision of high risk , unspecified, second trimester Comment: [id number], KELTON 04/23/25, BF: Fausto (4) : Status: [...] [place] appropriate handout given. 11/14/24 1203 s NURYS> Date _ Glendy Arvizu CNM Cos[employer] Signature: Date (if applicable) CC: ~ [facility] [id number] Radiology Diagnostic study note [facility] Imaging Services [address] [place], [place] [id number] OB Limited With Biometrics MR#: [id number] Acct: [id number] Name: NAN MEYERS Rep #: [id number] : 2000 F 24 From: Pet er Peer DO PCP: MARISA WILLIAM JUNIOR MECHANICAL ENGINEER-C Status: REG ER Study:OB Limited With Biometrics Date of Exam : 11/02/24 Exam# [id number] Ordering Dr: Mike Dill DO PROCEDURE: OB [...] above diagnosis is low. Maternal- medicine in [facility] consult may be considered Reading [facility] CC: MARISA YANES; Dr. Mike Dill, DO ~ Flight Superintendent: Signed [facility]06-10-2025 Evaluation note* Diagnosis Onset Date Resolution Status [...] of high-risk acute January 27, 2025 9:44am [facility] Work Phone: 1(454) 854-882206-10-2025 Evaluation note* Diagnosis Onset Date Resolution Status [...] 27, 2025 9:44am ADHD acute February 10, 025 2:15pm Anemia affecting acute February 10, 2025 2:15pm Anxiety acute February 10, 025 2:15pm Chlamydia infection affectin g acute February 10 2:15pm History of ectopic acute February 10, 2025 2:15pm acute February 10, 025 2:15pm Smoker acute February 10, 025 2:15pm Supervision of high-risk acute February 10 2:15pm [facility][1] Services Work Phone: 1(984) 174-651605-12-2025 Evaluation note* Diagnosis Onset Date Resolution Status [...] 10:18am Supervision of high-risk acute January 09, 2 025 10:18am [facility][1] Services Work Phone: 1(138) 550-143104-22-2025 Evaluation note* Diagnosis Onset Date Resolution Status [...] high-risk acute September 16, 2024 1 1:29am [facility] Work Phone: 1(157) 848-445804-22-2025 Evaluation note* Diagnosis Onset Date Resolution Status [...] of high-risk acute October 15, 2024 8:30am [facility] Work Phone: 1(306) 926-808704-22-2025 Evaluation note* Diagnosis Onset Date Resolution Status [...] of high-risk acute November 14, 2024 11:31am [facility][1] Services Work Phone: 1(592) 506-471504-22-2025 Evaluation note* Diagnosis Onset Date Resolution Status [...] of high-risk acute December 12, 2024 1:03pm [employer] Work Phone: [phone] Telephone encounter Note* Telephone Encounter - MARELY SANCHEZ - 07/30/2024 7:54 AM EDT Patient scheduled for nurse visit 07/30/24 to receive PPD testing. Please place order at this time. Marely Sanchez LPN [facility]03-25-2025 Miscellaneous Notes* Telephone Encounter - MARELY SANCHEZ - 07/30/2024 7:54 AM EDT Patient scheduled for nurse visit 07/30/24 to receive PPD testing. Please place order at this time. Marely Sanchez LPN documented in this encounterUniversity Hospitals Tripoint Medical Center03-01-2025 IjnpPIXO-IJE-2 (AGENT OF COVID-19) RNA: Not detected INFLUENZA A RNA: Not detected INFLUENZA B RNA: Not detected RESPIRATORY SYNCYTIAL VIRUS (RSV) RNA: Not detectedPromedica Toledo HospitalComment on above:Performed By: #### [id number]- 1 ####[facility] LABCLIA [id number] [address] STATES OF [id number] NoteHNO ID: [id number] Author: JANELLE WELDON APRN.SILVER SOLDERER Service: ? Author Type: Nurse Practitioner Type: Progress Notes Filed: 07/06/2024 11:46 Note Text: Subjective The history is provided by the patient. No sign language interpreter was used. KEITH Meyers is a 24 year old female who presents today for CC of cough, congestions, runny nose for 10 days. 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 She was [...] have confirmed and edited as necessary, the [facility] Review of Systems Constitutional: Negative for chills [...] detail warranting prompt ER evaluation. Janelle Weldon APRN.LACEYPromedica Toledo Hospital03-01-2025 History of Present illness Narrative* Janelle Weldon APRN.[facility] - 07/06/2024 11:42 AM EST Subjective The history is provided by the patient. No sign language interpreter was used. HPI Nan Meyers is a 24 year old female who presents today for CC of cough, congestions, runny nose for 10 days. 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 She was [...] have confirmed and edited as necessary, the [facility] Review of Systems Constitutional: Negative for chills [...] evaluation. Janelle Weldon APRN.CNP documented in this encounterUniversity Hospitals Tripoint Medical Center03-01-2025 Instructions* Patient Instructions* Janelle Weldon APRN.CNP - [...] breath, inability to swallow. documented in this encounterUniversity Hospitals Tripoint Medical Center02-25-2025 NoteHNO ID: [id number] Author: CARLOS SALAZAR PA-C Service: ? Author Type: Physician Furniture Inspector Type: Progress Notes Filed: 07/02/2024 17:38 Note Text: This note was created using [employer] Deonte Meyers is a 24 year old female. [...] J02.9 - PREDNISONE 20 MG TABLET JAMMIE [facility]02-25-2025 History of Present illness Narrative* Carlos Salazar PA-C - 07/02/2024 5:24 PM EST This note was created using [employer] Subjective Nan Meyers is a 24 year [...] TABLET Carlos Salazar PA-C documented in this encounterUniversity Hospitals Tripoint Medical Center02-11-2025 Instructions* Patient Instructions* Debbi Arceo APRN.CNP - [...] illness Debbi Arceo APRN.CNP documented in this encounterUniversity Hospitals Tripoint Medical Center02-11-2025 BcoxLRME-NMR-5 (AGENT OF COVID-19) RNA: Not detected INFLUENZA A RNA: Not detected INFLUENZA B RNA: Not detected RESPIRATORY SYNCYTIAL VIRUS (RSV) RNA: Not detectedPromedica Toledo HospitalComment on above:Performed By: #### [id number]- 1 ####[facility] LABCLIA [id number] [address] STATES OF [id number] NoteHNO ID: [id number] Author: DEBBI ARCEO APRN.CNP Service: ? Author Type: Nurse Practitioner Type: Progress Notes Filed: 06/18/2024 12:02 Note Text: Subjective HPI Nan Meyers is a 24 year old female who presents with cough, chills, nausea, vomiting and headache for the past 3 days. 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 Author Type: Nurse Practitioner Type: Progress Notes Filed: 05/10/2024 10:00 Note Text: Chief Complaint Patient presents with: Physical: Needs for new job HPI Nan Meyers is a 24 year old female who presents here today for Above Complaints. Nan is an established patient of myself. Concerns today.. 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 [...] I also discussed with patient that care connector may be beneficial. Patient was educated on [...] Vaccine(1) due on 11/04/2024 Covid-19 Vaccine(1 - 2023- season) due on 05/10/2025 Hepatitis B Vaccine Completed HPV Vaccine Completed Hepatitis C Screening Discontinued HIV Screening Discontinued ASSESSMENT/ (more content not included)...[facility]01-03-2025 History of Present illness Narrative* Marisa William, LUIS CARLOS.SILVER SOLDERER - 05/10/2024 9:21 AM EST Chief Complaint Patient presents with: Physical: Needs for new job HPI Nan Meyers is a 24 year old female who presents here today for Above Complaints. Nan is an established patient of myself. Concerns today.. 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 [...] I also discussed with patient that care connector may be beneficial. Patient was educated on [...] Patient agreeable to treatment plan. Marisa Pro APRN.SILVER SOLDERER [address] [place] [address] documented in this encounterUniversity Hospitals Tripoint Medical Center09-30-2024 NoteHNO ID: [id number] Author: NAINA NICHOLS APRN.[facility] Service: ? Author Type: Nurse Practitioner Type: [...] Patient agreeable to treatment plan. Naina Nichols APRN.[facility]09-30-2024 History of Present illness Narrative* Naina Nichols APRN.[facility] - 02/05/2024 10:54 AM EDT CC: Patient presents with: Sore Throat: Congestion, ISAACS, dizziness, exposed to covid x 2 days HPI: Nan Meyres is a 24 year old female who [...] symptoms occur. Patient agreeable to treatment plan. Naian Nichols APRN.LACEY documented in this encounterUniversity Hospitals Tripoint Medical Center07-23-2024 NoteHNO ID: [id number] Author: STEF GUEVARA PA Service: ? Author Type: Physician Furniture Inspector Type: Progress Notes Filed: 11/28/2023 13:48 Note Text: This note was created using [employer]. Subjective Nan Meyers is a 23 year [...] detail warranting prompt ER evaluation. Stef Guevara [facility]07-23-2024 History of Present illness Narrative* Stef Guevara PA - 11/28/2023 1:40 PM EDT This note was created using [employer] Subjective Nan Meyers is a 23 year [...] ER evaluation. JAMMIE Farris documented in this encounterUniversity Hospitals Tripoint Medical Center06-28-2024 NoteHNO ID: [id number] Author: BELTRAN CARREON APRN.SILVER SOLDERER Service: ? Author Type: Nurse Practitioner Type: [...] I also discussed with patient that care connector may be beneficial. Patient was educated on [...] of care. This note was generated using [employer] software. It may contain errors in wording, punctuation, or spelling. Beltran Carreon APRN.[facility]06-28-2024 History of Present illness Narrative* Beltran Carreon APRN.LACEY - 11/03/2023 8:03 AM EDT Images from the original note were not included. Subjective HPI Nontoxic-appearing female presents urgent care chief complaint right thigh pain. Duration of symptoms 2 days. Associated symptoms right thigh pain. No known injury. Has had leg pain in the past this feels similar. Does not know if they are related to work. Does work as an [employer] works 12-hour days. No numbness no tingling. [...] I also discussed with patient that care connector may be beneficial. Patient was educated on [...] of care. This note was generated using [employer] software. It may contain errors in wording, punctuation, or spelling. Beltran Carreon APRN.LACEY documented in this encounterUniversity Hospitals Tripoint Medical Center04-26-2024 NoteHNO ID: [id number] Author: MARISA WILLIAM APRN.CNP Service: ? Author Type: Nurse Practitioner Type: Progress Notes Filed: 09/01/2023 14:29 Note Text: Chief Complaint Patient presents with: physical HPI Nan Meyers is a 23 year old female who presents here today for Above Complaints. Nan is an established patient of Dr. Joiner, and myself. Concerns today... 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 Has paperwork to fill out. Recent wellness [...] No history of dysuria, frequency or incontinence LIBRARY SCIENCE INSTRUCTOR: Negative for abnormal vaginal bleeding, abnormal vaginal [...] Based On Risk(1 of (more content not included)...[facility]04-26-2024 History of Present illness Narrative* Marisa William, LUIS CARLOS.SILVER SOLDERER - 09/01/2023 1:17 PM EDT Chief Complaint Patient presents with: physical HPI Nan Meyers is a 23 year old female who presents here today for Above Complaints. Nan is an established patient of Dr. Joiner, Do and myself. Concerns today... 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 Has paperwork to fill out. 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 No concerns. - immunization record printed for employer. RTO annually and as needed. Prescription instructions reviewed with patient as applicable. Potential red flag symptoms discussed with the patient. Reviewed appropriate action plan to take if red flag symptoms occur. Patient agreeable to treatment plan. Marisa Pro APRN.LACEY [address] [place] [address] documented in this encounterUniversity Hospitals Tripoint Medical Center02-27-2024 History of Present illness Narrative* Naina Nichols [...] upon. Naina Nichols APRN.LACEY documented in this encounterUniversity Hospitals Tripoint Medical Center02-19-2024 History of Present illness Narrative* May Delaney [...] My Chart. MDM: Patient presented to the [facility] for viral testing. Nan Meyers has [...] A/B & RSV NAAT, ROUTINE May Delaney APRN.SILVER SOLDERER documented in this encounterUniversity Hospitals Tripoint Medical Center12-14-2023 History of Present illness Narrative* Kj Amaya [...] Wt 62.1 kg (137 lb) LMP 10/18/2022 HiS313% BMI 25.70 kg/m PHYSICAL EXAM: GEN: pleasant, [...] improving. Kj Amaya MD documented in this encounterUniversity Hospitals Tripoint Medical Center11-22-2023 History of Present illness Narrative* Marisa William APRN.SILVER SOLDERER - 03/29/2023 7:03 AM EST Chief Complaint Patient presents with: Physical HPI Nan Meyers is a 23 year old female who presents here today for Above Complaints. Nan is establishing care with our PCP team today from pediatrics. Concerns today.. Routine physical for new job. 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 Eats healthy overall and stays active daily. [...] Seeks Protection) Never done GC (Gonorrhea) Screening () Never done Hepatitis C Screening Never done HIV Screening Never done Chlamydia Screening (-) Never done Depression Assessment Never done Influenza [...] Patient agreeable to treatment plan. Marisa Pro APRN.SILVER SOLDERER [address] [place] [address] documented in this encounterUniversity Hospitals Tripoint Medical Center10-24-2023 History of Present illness Narrative* Janie Holder PA-C - 02/28/2023 12:35 PM EDT This note was created using [employer]. Subjective Nan Meyers is a 23 year old female. HPI Patient presents with a chief complaint of nausea over the past day. States yesterday she felt likeshe did throw up at work so she had left. She called off today as well. Denies any abdominal pain. No diarrhea. Denies runny nose, cough, sore throat. 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 She [...] Wt 60.3 kg (133 lb) LMP 10/18/2022 ZwP855% BMI 25.77 kg/m Physical Exam Vitals reviewed. [...] ROUTINE Janie Holder PA-C documented in this encounterUniversity Hospitals Tripoint Medical Center09-19-2023 History of Present illness Narrative* Lizette Kinney APRN.SILVER SOLDERER - 01/24/2023 5:20 PM EDT This note was created using [employer] Subjective Nan Meyers is a 23 year old female. 23 year old female with PMH ADHD, anxiety presents for complaints of illness. Acute onset 0400 Monday morning +N/V/D +stomach cramps. States that she is correlating it with eating food from [employer] Monday night. Endorses that today she has complete resolvement of symptoms. Denies fever or chills here Denies N/V/D today Endorses she is here for a work note. States that her work threatened termination without medical excuse. The history is provided by the patient. No sign language interpreter was used. Vomiting This is a [...] Wt 60.1 kg (132 lb 9.6 oz) LMP/ SpO2 99% BMI 25.69 kg/m Physical Exam [...] Provided Lizette Kinney APRN.LACEY documented in this encounterUniversity Hospitals Tripoint Medical Center09-14-2023 History of Present illness Narrative* Kj Amaya MD - 01/19/2023 2:41 PM EDT Patient presents with: Pain: chest pain x 3-4 days, off and on HPI: chest pain: Duration: 3-4 days Location: right mid chest Character: sharp, intermittent, lasts 1 minute then resolves Radiation: No. 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 Kj Amaya MD documented in this encounterUniversity Hospitals Tripoint Medical Center06-20-2023 History of Present illness Narrative* Janie Holder PA-C - 10/25/2022 2:49 PM EDT This note was created using [employer]. Deonte Meyers is a 22 year old [...] plan. Janie Holder PA-C documented in this encounterUniversity Hospitals Tripoint Medical Center06-20-2023 Instructions* Patient Instructions* Janie Holder PA-C - 10/25/2022 2:20 PM EDT May take 600mg of ibuprofen every 6-8 hours and tylenol 500-1000mg every 4-6 hours(max dose 4000 mga day) Trial flonase and zyrtec for fluid in ear. If not better follow up with pcp. documented in this encounterUniversity Hospitals Tripoint Medical Center05-08-2023 History of Present illness Narrative* Lizette Kinney APRN.SILVER SOLDERER - 09/12/2022 3:30 PM EDT This note was created using [employer] Subjective Nan Meyers is a 22 year old female. 22 year old female with PMH ADHD and anxiety presents for complaints of illness. Acute onset 5 days ago +stuffy nose +sore throat States voice has progressively worsened. +cough Denies SOB or dyspnea Denies abdominal pain Denies N/V/D Has used Ibuprofen and cough drops. 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 States that she is requiring documentation for her job as they are threatening to fire her. Denies inability to handle secretions. Denies muffled voice. The history is provided by the patient. No sign language interpreter was used. Sore Throat This is [...] week Lizette Kinney APRN.LACEY documented in this encounterUniversity Hospitals Tripoint Medical Center02-23-2023 Instructions* Patient Instructions* Tessa Gallegos - 06/30/2022 [...] ROUTINE Tessa Gallegos APRN-student documented in this encounterUniversity Hospitals Tripoint Medical Center02-23-2023 History of Present illness Narrative* Debbi Arceo APRN.SILVER SOLDERER - 06/30/2022 2:09 PM EST This note was created using [employer] Subjective Nan Meyers is a 22 year [...] Discussed expected course of illness TEACHING PROVIDER (Physician/PA/MAINTENANCE OF WAY FOREMAN) NOTE OF PERSONAL INVOLVEMENT IN CARE: I have personally seen and examined the patient and performed the medical decision-making components. I have reviewed the Advanced Practice Registered Nurse (MAINTENANCE OF WAY FOREMAN) Student's documentation and verified the findings in the note as written. Any additions or changes are noted in bold/italics. Signature: Debbi Arceo Date: 06/30/2022 Time: 2:29 PM documented in this encounterUniversity Hospitals Tripoint Medical Center10-20-2022 Miscellaneous Notes* Telephone Encounter - Unique Rivas MD - 02/24/2022 4:29 PM EDT Patient's request for medication is as follows: Requested Prescriptions Pending Prescriptions Disp Refills lisdexamfetamine (VYVANSE) mg capsule 30 capsule 0 Sig: Take [...] done Radha Kaiser LPN' documented in this encounterUniversity Hospitals Tripoint Medical Center09-23-2022 Miscellaneous Notes* Telephone Encounter - Unique Rivas [...] (18-24) Never done INFLUENZA(1) due on 01/06/2022 Adriaan Garces RN documented in this encounterUniversity Hospitals Tripoint Medical Center08-18-2022 Miscellaneous Notes* Telephone Encounter - Unique Rivas [...] done Jonn Hardin RN documented in this encounterUniversity Hospitals Tripoint Medical Center08-03-2022 Miscellaneous Notes* Telephone Encounter - Radha Kaiser [...] done Radha Kaiser LPN documented in this encounterUniversity Hospitals Tripoint Medical Center07-27-2022 Miscellaneous Notes* Telephone Encounter - Angie Maya RN - 12/01/2021 8:48 PM EDT Images from the original note were not included. Symptomatic Caregiver COVID Call Patient Name: Nan Meyers Date of : 2000 Primary Care Physician: Unique Rivas MD Service Date: 12/01/2021 Service Time: 8:48 PM Symptomatic Caregiver COVID Call - confirmed: Yes -Caregiver employee ID: [id number] -Symptom onset: 11/30 Covid Immunization Dates Overdue - COVID-19 VACCINE (1) Overdue - never done No completion, postpone, frequency change, or communication history exists for this topic. Recent travel outside [place]: No Cares for COVID-19 positive patients: [...] Time: 8:48 PM Pager/Contact: documented in this encounterUniversity Hospitals Tripoint Medical Center06-30-2022 History of Present illness Narrative* Unique Rivas [...] Continue current medication. - Letter written for out and out cigar maker hand animal - Follow up in 3-6 months for routine ADHD follow up I spent a total of 30 minutes on the date of the service which included preparing to see the patient, [id number] patient care, completing clinical documentation and obtaining and/or reviewing separately obtained history. SIGNATURE: Unique Rivas MD PATIENT NAME: Nan Meyers DATE: November 04, 2021 TIME: 9:56 AM documented in this encounterUniversity Hospitals Tripoint Medical Center06-30-2022 Instructions* Patient Instructions* Unique Rivas MD - [...] drinks Go! Be healthy, inside and out! [email or web address] documented in this encounterUniversity Hospitals [facility]05-17-2022 Miscellaneous Notes* Telephone Encounter - Allyn Leach Ma - 09/21/2021 8:04 AM EDT Refill has been sent to the pharmacy for months 09/20/21, 10/20/21 and 11/19/21 documented in this encounterUniversity Hospitals [facility]05-17-2022 Miscellaneous Notes* Telephone Encounter - Allyn Leach [...] UNIQUE RIVAS Ma * Telephone Encounter - Unqiue Rivas MD - 09/20/2021 8:48 PM EDT [...] done May Shaffer RN documented in this encounterUniversity Hospitals [facility]05-16-2022 Instructions* Patient Instructions* Unique Rivas MD - [...] drinks Go! Be healthy, inside and out! [email or web address] documented in this encounterUniversity Hospitals [facility]point [facility] Center04-04-2022 History of Present illness Narrative* Kj Amaya [...] dentist. Kj Amaya MD documented in this encounterUniversity Hospitals [facility] Center11-25-2013 History of Past illness Narrative* Problem Noted Date Resolved Date Short stature 04/01/2013 07/09/2021 Overview: April 01, 2013 - bone age is delayed Fracture of left distal radius 04/16/2012 0 06/15/2012 Fracture of radius, distal, right, closed 201104/16/2012 Poor weight gain (0-17) 11/08/2011 07/10/19 22 Constipation 07/26/2011 11/08/2011 documented as of this encounter (statuses as of 08/09/2021) [facility] History of Past illness Narrative* Problem Noted Date Resolved Date Short stature 04/01/2013 07/09/2021 Overview: April 01, 2013 - bone age is delayed Fracture of left distal radius 04/16/2012 0 06/15/2012 Fracture of radius, distal, right, closed 201104/16/2012 Poor weight gain (0-17) 11/08/2011 07/10/19 22 Constipation 07/26/2011 11/08/2011 documented as of this encounter (statuses as of 09/21/2021) [facility] History of Past illness Narrative* Problem Noted Date Resolved Date Short stature 04/01/2013 07/09/2021 Overview: April 01, 2013 - bone age is delayed Fracture of left distal radius 04/16/2012 0 06/15/2012 Fracture of radius, distal, right, closed 201104/16/2012 Poor weight gain (0-17) 11/08/2011 07/10/19 22 Constipation 07/26/2011 11/08/2011 documented as of this encounter (statuses as of 09/21/2021) [facility] of Past illness Narrative* Problem Noted Date Resolved Date Short stature 04/01/2013 07/09/2021 Overview: April 01, 2013 - bone age is delayed Fracture of left distal radius 04/16/2012 0 06/15/2012 Fracture of radius, distal, right, closed 201104/16/2012 Poor weight gain (0-17) 11/08/2011 07/10/19 22 Constipation 07/26/2011 11/08/2011 documented as of this encounter (statuses as of 10/22/2021) [facility] of Past illness Narrative* Problem Noted Date Resolved Date Short stature 04/01/2013 07/09/2021 Overview: April 01, 2013 - bone age is delayed Fracture of left distal radius 04/16/2012 0 06/15/2012 Fracture of radius, distal, right, closed 201104/16/2012 Poor weight gain (0-17) 11/08/2011 07/10/19 22 Constipation 07/26/2011 11/08/2011 documented as of this encounter (statuses as of 11/18/2021) [facility] of [facility] illness Narrative* Problem Noted Date Resolved Date Short stature 04/01/2013 07/09/2021 Overview: April 01, 2013 - bone age is delayed Fracture of left distal radius 04/16/2012 0 06/15/2012 Fracture of radius, distal, right, closed 201104/16/2012 Poor weight gain (0-17) 11/08/2011 07/10/19 22 Constipation 07/26/2011 11/08/2011 documented as of this encounter (statuses as of 12/02/2021) [facility] of [facility] illness Narrative* Problem Noted Date Resolved Date Short stature 04/01/2013 07/09/2021 Overview: April 01, 2013 - bone age is delayed Fracture of left distal radius 04/16/2012 0 06/15/2012 Fracture of radius, distal, right, closed 201104/16/2012 Poor weight gain (0-17) 11/08/2011 07/10/19 22 Constipation 07/26/2011 11/08/2011 documented as of this encounter (statuses as of 12/08/2021) [facility] of [facility] illness Narrative* Problem Noted Date Resolved Date Short stature 04/01/2013 07/09/2021 Overview: April 01, 2013 - bone age is delayed Fracture of left distal radius 04/16/2012 0 06/15/2012 Fracture of radius, distal, right, closed 201104/16/2012 Poor weight gain (0-17) 11/08/2011 07/10/19 22 Constipation 07/26/2011 11/08/2011 documented as of this encounter (statuses as of 12/23/2021) [facility] of [facility] illness Narrative* Problem Noted Date Resolved Date Short stature 04/01/2013 07/09/2021 Overview: April 01, 2013 - bone age is delayed Fracture of left distal radius 04/16/2012 0 06/15/2012 Fracture of radius, distal, right, closed 201104/16/2012 Poor weight gain (0-17) 11/08/2011 07/10/19 22 Constipation 07/26/2011 11/08/2011 documented as of this encounter (statuses as of 12/28/2021) [facility] of [facility] illness Narrative* Problem Noted Date Resolved Date Short stature 04/01/2013 07/09/2021 Overview: April 01, 2013 - bone age is delayed Fracture of left distal radius 04/16/2012 0 06/15/2012 Fracture of radius, distal, right, closed 201104/16/2012 Poor weight gain (0-17) 11/08/2011 07/10/19 22 Constipation 07/26/2011 11/08/2011 documented as of this encounter (statuses as of 01/06/2022) [facility] of [facility] illness Narrative* Problem Noted Date Resolved Date Short stature 04/01/2013 07/09/2021 Overview: April 01, 2013 - bone age is delayed Fracture of left distal radius 04/16/2012 0 06/15/2012 Fracture of radius, distal, right, closed 201104/16/2012 Poor weight gain (0-17) 11/08/2011 07/10/19 22 Constipation 07/26/2011 11/08/2011 documented as of this encounter (statuses as of 01/21/2022) [facility] illness Narrative* Problem Noted Date Resolved Date Short stature 04/01/2013 07/09/2021 Overview: April 01, 2013 - bone age is delayed Fracture of left distal radius 04/16/2012 0 06/15/2012 Fracture of radius, distal, right, closed 201104/16/2012 Poor weight gain (0-17) 11/08/2011 07/10/19 22 Constipation 07/26/2011 11/08/2011 documented as of this encounter (statuses as of 01/24/2022) [facility] illness Narrative* Problem Noted Date Resolved Date Short stature 04/01/2013 07/09/2021 Overview: April 01, 2013 - bone age is delayed Fracture of left distal radius 04/16/2012 0 06/15/2012 Fracture of radius, distal, right, closed 201104/16/2012 Poor weight gain (0-17) 11/08/2011 07/10/19 22 Constipation 07/26/2011 11/08/2011 documented as of this encounter (statuses as of 01/25/2022) [facility] of [facility] illness Narrative* Problem Noted Date Resolved Date Short stature 04/01/2013 07/09/2021 Overview: April 01, 2013 - bone age is delayed Fracture of left distal radius 04/16/2012 0 06/15/2012 Fracture of radius, distal, right, closed 201104/16/2012 Poor weight gain (0-17) 11/08/2011 07/10/19 22 Constipation 07/26/2011 11/08/2011 documented as of this encounter (statuses as of 01/28/2022) [facility] Narrative* Problem Noted Date Resolved Date Short stature 04/01/2013 07/09/2021 Overview: April 01, 2013 - bone age is delayed Fracture of left distal radius 04/16/2012 0 06/15/2012 Fracture of radius, distal, right, closed 201104/16/2012 Poor weight gain (0-17) 11/08/2011 07/10/19 22 Constipation 07/26/2011 11/08/2011 documented as of this encounter (statuses as of 02/24/2022) [facility] illness Narrative* Problem Noted Date Resolved Date Short stature 04/01/2013 07/09/2021 Overview: April 01, 2013 - bone age is delayed Fracture of left distal radius 04/16/2012 0 06/15/2012 Fracture of radius, distal, right, closed 201104/16/2012 Poor weight gain (0-17) 11/08/2011 07/10/19 22 Constipation 07/26/2011 11/08/2011 documented as of this encounter (statuses as of 06/30/2022) [facility] Narrative* Problem Noted Date Resolved Date Short stature 04/01/2013 07/09/2021 Overview: April 01, 2013 - bone age is delayed Fracture of left distal radius 04/16/2012 0 06/15/2012 Fracture of radius, distal, right, closed 201104/16/2012 Poor weight gain (0-17) 11/08/2011 07/10/19 22 Constipation 07/26/2011 11/08/2011 documented as of this encounter (statuses as of 07/01/2022) [facility] Narrative* Problem Noted Date Resolved Date Short stature 04/01/2013 07/09/2021 Overview: April 01, 2013 - bone age is delayed Fracture of left distal radius 04/16/2012 0 06/15/2012 Fracture of radius, distal, right, closed 201104/16/2012 Poor weight gain (0-17) 11/08/2011 07/10/19 22 Constipation 07/26/2011 11/08/2011 documented as of this encounter (statuses as of 09/13/2022) [facility] Narrative* Problem Noted Date Resolved Date Short stature 04/01/2013 07/09/2021 Overview: April 01, 2013 - bone age is delayed Fracture of left distal radius 04/16/2012 0 06/15/2012 Fracture of radius, distal, right, closed 201104/16/2012 Poor weight gain (0-17) 11/08/2011 07/10/19 22 Constipation 07/26/2011 11/08/2011 documented as of this encounter (statuses as of 10/26/2022) [facility] Narrative* Problem Noted Date Diagnosed Date Resolved Date Short stature 04/01/2013 07/09/2021 Overview: April 01, 2013 - bone age is delayed Fracture of left distal radius 04/16/2012 06/15/2012 Fracture of radius, distal, right, closed 03/31/2012 04/16/2012 Poor weight gain (0-17) 11/08/2011 03/0 08/2021 Constipation 07/26/2011 11/08/2011 documented as of this encounter (statuses as of 01/19/2023) [facility] Narrative* Problem Noted Date Diagnosed Date Resolved Date Short stature 04/01/2013 07/09/2021 Overview: April 01, 2013 - bone age is delayed Fracture of left distal radius 04/16/2012 06/15/2012 Fracture of radius, distal, right, closed 03/31/2012 04/16/2012 Poor weight gain (0-17) 11/08/2011 03/0 08/2021 Constipation 07/26/2011 11/08/2011 documented as of this encounter (statuses as of 01/25/2023) [place] [id number] History of Past illness Narrative* Problem Noted Date Diagnosed Date Resolved Date Short stature 04/01/2013 07/09/2021 Overview: April 01, 2013 - bone age is delayed Fracture of left distal radius 04/16/2012 06/15/2012 Fracture of radius, distal, right, closed 03/31/2012 04/16/2012 Poor weight gain (0-17) 11/08/2011 03/0 08/2021 Constipation 07/26/2011 11/08/2011 documented as of this encounter (statuses as of 02/28/2023) [place] [id number] History of Past illness Narrative* Problem Noted Date Diagnosed Date Resolved Date Short stature 04/01/2013 07/09/2021 Overview: April 01, 2013 - bone age is delayed Fracture of left distal radius 04/16/2012 06/15/2012 Fracture of radius, distal, right, closed 03/31/2012 04/16/2012 Poor weight gain (0-17) 11/08/2011 03/0 08/2021 Constipation 07/26/2011 11/08/2011 documented as of this encounter (statuses as of 03/29/2023) [facility] Narrative* Problem Noted Date Diagnosed Date Resolved Date Short stature 04/01/2013 07/09/2021 Overview: April 01, 2013 - bone age is delayed Fracture of left distal radius 04/16/2012 06/15/2012 Fracture of radius, distal, right, closed 03/31/2012 04/16/2012 Poor weight gain (0-17) 11/08/2011 03/0 08/2021 Constipation 07/26/2011 11/08/2011 documented as of this encounter (statuses as of 04/21/2023) [facility] Narrative* Problem Noted Date Diagnosed Date Resolved Date Short stature 04/01/2013 07/09/2021 Overview: April 01, 2013 - bone age is delayed Fracture of left distal radius 04/16/2012 06/15/2012 Fracture of radius, distal, right, closed 03/31/2012 04/16/2012 Poor weight gain (0-17) 11/08/2011 03/0 08/2021 Constipation 07/26/2011 11/08/2011 documented as of this encounter (statuses as of 06/26/2023) [facility] of [facility] illness Narrative* Problem Noted Date Diagnosed Date Resolved Date Short stature 04/01/2013 07/09/2021 Overview: April 01, 2013 - bone age is delayed Fracture of left distal radius 04/16/2012 06/15/2012 Fracture of radius, distal, right, closed 03/31/2012 04/16/2012 Poor weight gain (0-17) 11/08/2011 03/0 08/2021 Constipation 07/26/2011 11/08/2011 documented as of this encounter (statuses as of 07/05/2023) [facility] CenterDis[facility] summary Author Arnoldo Harding [facility] January 30, 2023 8:53am Note Date/Time January 30, 2023 8:51am [facility] Medical Records Department [address] [place] [address] Emergency Department Summary 01/30/23 MR#: [id number] Acct: [id number] Name: NAN MEYERS Rep #:[id number] : [...] as well. She does not see an ORGANIC CHEMIST regularly but wants to start control again. [...] was also recommended to follow-up with an ORGANIC CHEMIST. She was given the number to the [place] [facility] on-call at her request. I feel [...] positive home , and follow-up with an ORGANIC CHEMIST soon as possible. Return instructions to the [...] your Primary Care Provider. Call [facility] ([phone]) or report to the closest Emergency Room. Call 911 if necessary. 01/30/23 0853 <Electronically signed by Arnoldo Harding MD> Cosigner Signature (if applicable): CC: Dr. Unique Rivas MD ~ Signed [facility] Work Phone: Evaluation note* Diagnosis Toothache- Primary Unspecified disorder of the teeth and supporting structures documented in this encounter [facility]* Diagnosis Attention deficit hyperactivity disorder (ADHD), unspecified ADHD type- Primary documented in this encounter [facility]* Diagnosis Attention deficit hyperactivity disorder (ADHD), unspecified ADHD type [facility] Attention deficit hyperactivity disorder (ADHD), unspecified ADHD type [facility] Diagnosis Attention deficit hyperactivity disorder (ADHD), predominantly inattentive type- Primary Anxiety Anxiety state, unspecified documented in this encounter [facility]* Diagnosis Suspected 2019 novel coronavirus infection- Primary documented in this encounter [facility]* Diagnosis Attention deficit hyperactivity disorder (ADHD), unspecified ADHD type documented [facility] this encounter [facility]* Diagnosis Attention deficit hyperactivity disorder (ADHD), unspecified ADHD type documented in this encounter [facility]* Diagnosis Encounter for immunization- Primary Need for other specified prophylactic vaccination against single bacterial disease documented in this encounter [facility] note* Diagnosis Encounter for PPD skin test reading- Primary Other follow-up examination Screening-pulmonary TB Screening examination for pulmonary tuberculosis documented in this encounter [facility] note* Diagnosis Encounter for PPD skin test reading- Primary Other follow-up examination [facility] Diagnosis Attention deficit hyperactivity disorder (ADHD), unspecified ADHD type documented in this encounter [facility] note* Diagnosis Encounter for screening laboratory testing for COVID-19 virus- Primary documented in this encounter [facility] note* Diagnosis URI, acute- Primary Acute upper respiratory infections of unspecified site Pharyngitis, unspecified etiology documented in this encounter [facility] note* Diagnosis Fluid level behind tympanic membrane of right ear- Primary Headache, unspecified headache type documented in this encounter [facility] note* Diagnosis Costochondritis- Primary Tietze's disease documented in this encounter [facility] note* Diagnosis Nausea vomiting and diarrhea- Primary Diarrhea documented in this encounter [facility] noteNo assessment information availableWCenterville Work Phone: [facility]* Diagnosis Onset Date Resolution Status Contraception [facility]* Diagnosis Nausea- Primary Nausea alone documented in this encounter [facility] note* Diagnosis Wellness examination- Primary documented in this encounter [facility] note* Diagnosis Acute hip pain, right- Primary documented in this encounter [facility] note* Diagnosis Exposure to SARS-associated coronavirus- Primary documented in this encounter [facility] note* Diagnosis Acute otitis media, left- Primary Unspecified otitis media Sore throat Acute pharyngitis documented in this encounter [facility] note* Diagnosis Wellness examination- Primary documented in this encounter [facility] note* Diagnosis Pain of right lower extremity- Primary documented in this encounter [facility] note* Diagnosis Headache, unspecified headache type- Primary documented in this encounter [facility] note* Diagnosis URI, acute- Primary Acute upper respiratory infections of unspecified site documented in this encounter [facility] note* Diagnosis Wellness examination- Primary Family history of hypothyroidism Family history of other endocrine and metabolic diseases Right leg pain Pain in limb documented [facility] encounter [facility]* Diagnosis Flu-like symptoms- Primary Other general symptoms documented in this encounter [facility]* Diagnosis Sore throat- Primary Acute pharyngitis Acute pharyngitis, unspecified etiology documented in this encounter [facility]* Diagnosis Rhinosinusitis- Primary Unspecified sinusitis (chronic) documented in this encounter [facility]* Diagnosis Screening-pulmonary TB- Primary Screening examination for pulmonary tuberculosis [facility]* Attachments The following attachments cannot be sent through Care Everywhere. * : When to Call (After 20 Weeks): General Info (Citizen [place]) * Round Ligament Pain (Citizen [place]) * : Abdominal Pain (Citizen [place]) documented in this encounterPeoples HospitalProgress note Author Glendy Arvizu [facility] Note Date/Time November 14, 2024 12:0 3pm [facility] [address], [address] [place] [address] OFFICE VISIT Date of Service: 11/14/24 MR#: [id number] Acct: [id number] Name: NAN MEYERS Rep #: [id number] : 2000 Provider: NURYS Arvizu Age/Sex: 24/F Location: [facility] Status: Signed Intake Vital Signs 09/16/24 11:33 11/02/24 09:08 11/14/24 11:40 Height 5 ft 5 ft 5 ft Weight: 143 lb 8 oz BMI 28.0 BP 128/71 H Intake Visit Reasons: 17wk ob Chief Complaint: 17wk OB [employer] Required: No Is patient in pain?: No [...] baby current occupational status: employed current occupation: [employer] current occupational exposures/hazards: No pets and animals: [...] physical activity do you participate in: none christopher/restorationist: None seatbelt use: always do you feel safe at home: Yes additional social history: BF: Fausto - [employer] History 2 Elective abortions Hx Para 0 [...] is considering moving to a practice in [place] due to moving to that area. ACOG [...] + @ NOB. Treated and vomited med. [place] Rx sent and zofram prior. (2) History of ectopic : Status: Acute Comment: 09/08/20 - surgery by , was in right ovary and still has both tubes. (3) Supervision of high-risk : Status: Acute Qualifiers: Trimester: second trimester Qualified Code(s): O09.92 - Supervision of high risk , unspecified, second trimester Comment: [id number], KELTON 04/23/25, BF: Fausto (4) : Status: [...] Cosigner Signature: Date (if applicable) CC: ~ [facility] Work Phone: Progress note Author Nereida Chou [facility] Note Date/Time January 09, 2025 11:04am [facility] [address], [address] [place] [address] OFFICE VISIT Date of Service: 01/09/25 MR#: [id number] Acct: [id number] Name: NAN MEYERS Rep #: [id number] : 2000 Provider: Dr. Greg Chou MD Age/Sex: 24/F Location: [facility] Status: Signed Intake Vital Signs 10/15/24 08:32 12/12/24 13:48 01/09/25 10:32 Height 5 ft 5 ft 5 ft Weight: 160 lb 9 oz BMI 31.4 BP 116/70 Intake Visit Reasons: 25 wk ob [employer] Required: No Is patient in pain?: No [...] baby current occupational status: employed current occupation: [employer] current occupational exposures/hazards: No pets and animals: [...] physical activity do you participate in: none christopher/restorationist: None seatbelt use: always do you feel safe at home: Yes additional social history: BF: Fausto - [employer] History 2 Elective abortions Hx Para 0 [...] is considering moving to a practice in [place] due to moving to that area. 12/12/24 [...] Monitoring, Signs and Symptoms of Preeclampsia and Ethel Education Results POC Urinalysis 2 Dip (Clinic) [...] + @ NOB. Treated and vomited med. [place] Rx sent and zofram prior. (2) History of ectopic : Status: Acute Comment: 09/08/20 - surgery by [facility], was in right ovary and still has both tubes. (3) Supervision of high-risk : Status: Acute Qualifiers: Trimester: second trimester Qualified Code(s): O09.92 - Supervision of high risk , unspecified, second trimester Comment: [id number], KELTON 04/23/25, BF: Fausto (4) : Status: [...] stover MD> Date _ Nereida Chou MD Cosigner Signature: Date (if applicable) CC: ~ [facility] Work Phone: Progress note Author Negrita Vital [facility] Note Date/Time January 27, 2025 10:01am [facility] [address] [place] [address], [address] [place] [address] OFFICE VISIT Date of Service: 01/27/25 MR#: [id number] Acct: [id number] Name: NAN MEYERS Rep #: [id number] : 2000 Provider: DEBORAH Vital Age/Sex: 25/F Location: [facility] Status: Signed Intake Vital Signs 12/12/24 13:21 12/12/24 13:48 01/09/25 10:32 01/27/25 09:50 Height 5 ft 5 ft 5 ft 5 ft Weight: 160 lb 9 oz 162 lb 3 oz BMI 31.4 31.6 BP 116/70 122/71 H Intake Visit Reasons: 28 WK OB/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 12/12/24 [...] Monitoring, Signs and Symptoms of Preeclampsia and Ethel Education ROS Const Reports system reviewed and [...] high risk , unspecified, second trimester Comment: [id number], KELTON 04/23/25, BF: [facility] (2) : Status: [...] + @ NOB. Treated and vomited med. [place] Rx sent and zofram prior. Rpt test [...] 01/27/25 1004 <Electronically signed by Negrita acosta NP SPORTS BETTING MANAGER-C> Date _ Negrita Vital NP SPORTS BETTING MANAGER-C Cosigner Signature: Date (if applicable) CC: ~ [facility][1] Services Work Phone: Reason for referral (narrative)No reason for referral information [place] Work Phone: Health Concerns Infection Onset Date [...] 3pm Supervision of high-risk Augus 2024 1:03pm Chief Complaint Admit Date New [...] January 09, 2025 10:18am [facility] ADHD January 27, 2025 9:44am Anxiety January 27, 2025 9:44am Chlamydia infection affecting January 27, 2025 9:44am History of ectopic January 072024 9:44am January 27, 2025 9:44am Smoker January 27, 2025 9:44am Supervision of high-risk [facility] 2024 9:44am Chief Complaint Admit Date 13wk [...] January 09, 2025 10:18am [facility] 10[facility] ADHD January 27, 2025 9:44am Anxiety January 27, 2025 9:44am Chlamydia infection affecting January 27, 2025 9:44am History of ectopic January 072024 9:44am January 27, 2025 9:44am Smoker January 27, 2025 9:44am Supervision of high-risk [facility] 2024 9:44am ADHD February 10, 2025 2: 15pm Anemia affecting February 10, 2025 2:15pm Anxiety February 10, 2025 2: 15pm Chlamydia infection affecting February 10, 2025 2:15pm History of ectopic February 2:15pm February 10, 2025 2: 15pm Smoker February 10, 2025 2: 15pm Supervision of high-risk Octob er 2024 2:15pm Advance Directives No Advanced Directives Records Found Advance Directive Response Recorded Date/ Time Living Will No January 30, 2023 8:43am Power of Spinner Hand No January 8:43am Advance Directive Response Recorded Date/ Time Do you have a Healthcare Power of Spinner Hand? No November 02, 2024 9:36am Reason for Referral Specialty Diagnoses / Procedures Referred By Contac t Referred To Contact [facility] Diagnoses Right leg pain Procedures CONSULT TO PHYSICAL THERAPY PHYSICAL THERAPY EVALUATION HIGH COMPLEX 45 MINS Marisa William, MAINTENANCE OF WAY FOREMAN.SILVER SOLDERER [address] [place] [address] [facility] [place] [address] [place] [address] Referral ID Status Reason Start Date Expiration Date Visits Requested Visits Authorized [id number] Pending Review Auto-Generat ed Referral 05/10/2024 05/10/2025 [...] or prosecute any alcohol or drug abuse patient.[facility] Center[facility] the event this information is protected by the Federal Confidentiality of Alcohol and Drug Abuse Patient Records regulations: The Federal rules restrict any use of the information to criminally investigate or prosecute any alcohol or drug abuse patient.[facility] CenterIn the event this information is protected by the Federal Confidentiality of Alcohol and Drug Abuse Patient Records regulations: The Federal rules restrict any use of the information to criminally investigate or prosecute any alcohol or drug abuse patient.[facility] CenterIn the event this information is protected by the Federal Confidentiality of Alcohol and Drug Abuse Patient Records regulations: The Federal rules restrict any use of the information to criminally investigate or prosecute any alcohol or drug abuse patient.[facility] CenterIn the event this information is protected by the Federal Confidentiality of Alcohol and Drug Abuse Patient Records regulations: The Federal rules restrict any use of the information to criminally investigate or prosecute any alcohol or drug abuse patient.[facility] CenterIn the event this information is protected by the Federal Confidentiality of Alcohol and Drug Abuse Patient Records regulations: The Federal rules restrict any use of the information to criminally investigate or prosecute any alcohol or drug abuse patient.[facility] the event this information is protected by the Federal Confidentiality of Alcohol and Drug Abuse Patient Records regulations: The Federal rules restrict any use of the information to criminally investigate or prosecute any alcohol or drug abuse patient.[facility] CenterIn the event this information is protected by the Federal Confidentiality of Alcohol and Drug Abuse Patient Records regulations: The Federal rules restrict any use of the information to criminally investigate or prosecute any alcohol or drug abuse patient.[facility] CenterIn the event this information is protected by [...] or prosecute any alcohol or drug abuse patient.[facility] CenterIn the event this information is protected by the Federal Confidentiality of Alcohol and Drug Abuse Patient Records regulations: The Federal rules restrict any use of the information to criminally investigate or prosecute any alcohol or drug abuse patient.[facility] CenterIn the event this information is protected by the Federal Confidentiality of Alcohol and Drug Abuse Patient Records regulations: The Federal rules restrict any use of the information to criminally investigate or prosecute any alcohol or drug abuse patient.[facility] CenterIn the event this information is protected by the Federal Confidentiality of Alcohol and Drug Abuse Patient Records regulations: The Federal rules restrict any use of the information to criminally investigate or prosecute any alcohol or drug abuse patient.[facility] CenterIn the event this information is protected by the Federal Confidentiality of Alcohol and Drug Abuse Patient Records regulations: The Federal rules restrict any use of the information to criminally investigate or prosecute any alcohol or drug abuse patient.[facility] CenterIn the event this information is protected by the Federal Confidentiality of Alcohol and Drug Abuse Patient Records regulations: The Federal rules restrict any use of the information to criminally investigate or prosecute any alcohol or drug abuse patient.[facility] CenterIn the event this information is protected by the Federal Confidentiality of Alcohol and Drug Abuse Patient Records regulations: The Federal rules restrict any use of the information to criminally investigate or prosecute any alcohol or drug abuse patient.[facility] CenterIn the event this information is protected by the Federal Confidentiality of Alcohol and Drug Abuse Patient Records regulations: The Federal rules restrict any use of the information to criminally investigate or prosecute any alcohol or drug abuse patient.[facility] CenterIn the event this information is protected by the Federal Confidentiality of Alcohol and Drug Abuse Patient Records regulations: The Federal rules restrict any use of the information to criminally investigate or prosecute any alcohol or drug abuse patient.[facility] CenterIn the event this information is protected by the Federal Confidentiality of Alcohol and Drug Abuse Patient Records regulations: The Federal rules restrict any use of the information to criminally investigate or prosecute any alcohol or drug abuse patient.[facility] CenterIn the event this information is protected by the Federal Confidentiality of Alcohol and Drug Abuse Patient Records regulations: The Federal rules restrict any use of the information to criminally investigate or prosecute any alcohol or drug abuse patient.[facility] CenterIn the event this information is protected by the Federal Confidentiality of Alcohol and Drug Abuse Patient Records regulations: The Federal rules restrict any use of the information to criminally investigate or prosecute any alcohol or drug abuse patient.[facility] CenterIn the event this information is protected by the Federal Confidentiality of Alcohol and Drug Abuse Patient Records regulations: The Federal rules restrict any use of the information to criminally investigate or prosecute any alcohol or drug abuse patient.[facility] CenterIn the event this information is protected by the Federal Confidentiality of Alcohol and Drug Abuse Patient Records regulations: The Federal rules restrict any use of the information to criminally investigate or prosecute any alcohol or drug abuse patient.[facility] CenterIn the event this information is protected by the Federal Confidentiality of Alcohol and Drug Abuse Patient Records regulations: The Federal rules restrict any use of the information to criminally investigate or prosecute any alcohol or drug abuse patient.[facility] CenterIn the event this information is protected by the Federal Confidentiality of Alcohol and Drug Abuse Patient Records regulations: The Federal rules restrict any use of the information to criminally investigate or prosecute any alcohol or drug abuse patient.[facility] CenterIn the event this information is protected by the Federal Confidentiality of Alcohol and Drug Abuse Patient Records regulations: The Federal rules restrict any use of the information to criminally investigate or prosecute any alcohol or drug abuse patient.[facility] CenterIn the event this information is protected by the Federal Confidentiality of Alcohol and Drug Abuse Patient Records regulations: The Federal rules restrict any use of the information to criminally investigate or prosecute any alcohol or drug abuse patient.[facility] CenterIn the event this information is protected by the Federal Confidentiality of Alcohol and Drug Abuse Patient Records regulations: The Federal rules restrict any use of the information to criminally investigate or prosecute any alcohol or drug abuse patient.[facility] CenterIn the event this information is protected by the Federal Confidentiality of Alcohol and Drug Abuse Patient Records regulations: The Federal rules restrict any use of the information to criminally investigate or prosecute any alcohol or drug abuse patient.[facility] CenterIn the event this information is protected by the Federal Confidentiality of Alcohol and Drug Abuse Patient Records regulations: The Federal rules restrict any use of the information to criminally investigate or prosecute any alcohol or drug abuse patient.[facility] CenterIn the event this information is protected by the Federal Confidentiality of Alcohol and Drug Abuse Patient Records regulations: The Federal rules restrict any use of the information to criminally investigate or prosecute any alcohol or drug abuse patient.[facility] CenterIn the event this information is protected by the Federal Confidentiality of Alcohol and Drug Abuse Patient Records regulations: The Federal rules restrict any use of the information to criminally investigate or prosecute any alcohol or drug abuse patient.[facility] CenterIn the event this information is protected by the Federal Confidentiality of Alcohol and Drug Abuse Patient Records regulations: The Federal rules restrict any use of the information to criminally investigate or prosecute any alcohol or drug abuse patient.[facility] CenterIn the event this information is protected by the Federal Confidentiality of Alcohol and Drug Abuse Patient Records regulations: The Federal rules restrict any use of the information to criminally investigate or prosecute any alcohol or drug abuse patient.[facility] CenterIn the event this information is protected by the Federal Confidentiality of Alcohol and Drug Abuse Patient Records regulations: The Federal rules restrict any use of the information to criminally investigate or prosecute any alcohol or drug abuse patient.[facility] CenterIn the event this information is protected by the Federal Confidentiality of Alcohol and Drug Abuse Patient Records regulations: The Federal rules restrict any use of the information to criminally investigate or prosecute any alcohol or drug abuse patient.[facility] CenterIn the event this information is protected by the Federal Confidentiality of Alcohol and Drug Abuse Patient Records regulations: The Federal rules restrict any use of the information to criminally investigate or prosecute any alcohol or drug abuse patient.[facility] CenterIn the event this information is protected by the Federal Confidentiality of Alcohol and Drug Abuse Patient Records regulations: The Federal rules restrict any use of the information to criminally investigate or prosecute any alcohol or drug abuse patient.[facility] Reason for Visit (unrecogniz ed section and [...] hasn't completely stopped moving, just less than normal. Pt denies vaginal bleeding, leaking fluid, dysuria, cramping, n/v. Specialty Diagnoses / Procedures Referred By Viry rosas Referred To Contact Cher Schultz MD [address] [place] [address] Phone: tel: fax: [address] [address] Referral ID Status Reason Start Date Expiration Date Visits Re quested Visits Authorized [id number] Care Teams (unrecognized sec tion and content) Regulator Pin Inserter Relationship Specialty Start Date End Date Unique Rivas MD [address] [place], [place] [id number] PCP - General Pediatrics 07/22/13 Regulator Pin Inserter Relationship Specialty Start Date End Date Unique Rivas MD [address] [place], [place] [id number] PCP - General Pediatrics 07/22/13 Regulator Pin Inserter Relationship Specialty Start Date End Date Unique Rivas MD [address] [place] [place] [address] PCP - General Pediatrics 07/22/13 Regulator Pin Inserter Relationship Specialty Start Date End Date Unique Rivas MD [address] [place] [place] [address] PCP - General Pediatrics 07/22/13 Regulator Pin Inserter Relationship Specialty Start Date End Date Unique Rivas MD [address] [place] [place] [address] PCP - General Pediatrics 07/22/13 Regulator Pin Inserter Relationship Specialty Start Date End Date Unique Rivas MD [address] [place] [place] [address] PCP - General Pediatrics 07/22/13 Regulator Pin Inserter Relationship Specialty Start Date End Date Unique Rivas MD [address] [place] [place] [address] PCP - General Pediatrics 07/22/13 Regulator Pin Inserter Relationship Specialty Start Date End Date Unique Rivas MD [address] [place] [address] PCP - General Pediatrics 07/22/13 Regulator Pin Inserter Relationship Specialty Start Date End Date Unique Rivas MD [address] [place] [address] PCP - General Pediatrics 07/22/13 Regulator Pin Inserter Relationship Specialty Start Date End Date Unique Rivas MD [address] [place] [address] PCP - General Pediatrics 07/22/13 Regulator Pin Inserter Relationship Specialty Start Date End Date Unique Rivas MD [address] [place] [place] [address] PCP - General Pediatrics 07/22/13 Team Status: [...] Provider, Refer ring Provider Active Negrita Vital SPORTS BETTING MANAGER, SPORTS BETTING MANAGER-C Attending Provider Active Team Status: Inactive Member [...] CNM Attending Provider, Referring Pro vider Active Regulator Pin Inserter Relationship Specialty Start Date End Date Unique Rivas MD [address] [place] [address] PCP - General Pediatrics 07/22/13 Regulator Pin Inserter Relationship Specialty Start Date End Date Unique Rivas MD [address] [place] [address] PCP - General Pediatrics 07/22/13 Regulator Pin Inserter Relationship Specialty Start Date End Date Unique Rivas MD [address] [place] [address] PCP - General Pediatrics 07/22/13 Regulator Pin Inserter Relationship Specialty Start Date End Date Marisa William APRN.SILVER SOLDERER [address] [place] [address] PCP - General Family Medicine 08/30/23 Regulator Pin Inserter Relationship Specialty Start Date End Date Marisa William APRN.SILVER SOLDERER [address] [facility] [place] [address] PCP - General Family Medicine 08/30/23 Regulator Pin Inserter Relationship Specialty Start Date End Date Marisa William, MAINTENANCE OF WAY FOREMAN.SILVER SOLDERER [address] [facility] [place] [address] PCP - General Family Medicine 08/30/23 Regulator Pin Inserter Relationship Specialty Start Date End Date Marisa William, MAINTENANCE OF WAY FOREMAN.SILVER SOLDERER [address] [place] [address] PCP - General Family Medicine 08/30/23 Regulator Pin Inserter Relationship Specialty Start Date End Date Marisa William, MAINTENANCE OF WAY FOREMAN.SILVER SOLDERER [address] [place] [address] PCP - General Family Medicine 08/30/23 Regulator Pin Inserter Relationship Specialty Start Date End Date Marisa William, MAINTENANCE OF WAY FOREMAN.SILVER SOLDERER [address] [place] [address] PCP - General Family Medicine 08/30/23 Regulator Pin Inserter Relationship Specialty Start Date End Date Marisa William, MAINTENANCE OF WAY FOREMAN.SILVER SOLDERER [address] [place] [address] PCP - General Family Medicine 08/30/23 Regulator Pin Inserter Relationship Specialty Start Date End Date Marisa William, MAINTENANCE OF WAY FOREMAN.SILVER SOLDERER [address] [place] [address] PCP - General Family Medicine 08/30/23 Regulator Pin Inserter Relationship Specialty Start Date End Date Marisa William, MAINTENANCE OF WAY FOREMAN.SILVER SOLDERER [address] [place] [address] PCP - General Family Medicine 08/30/23 Team [...] 2024 End: October 15, 2024 Negrita Vital SPORTS BETTING MANAGER, SPORTS BETTING MANAGER-C Attending Provider Active Start: October 15, 2024 End: October 15, 2024 Team Status: Active Member Role/Relationship Status Dates DEBORAH Paniagua Primary Care Provider Acti ve Team Status: Inactive Member Role/Relationship Status Dates Dr. Unique Rivas MD Primary Care Provider Active Start: August 27, 2024 End: August 27, 2024 Dr. Unique Rivas MD Referring Provider Active Start: August 27, 2024 End: August 27, 2024 Dr. eNreida Chou MD Attending Provider Active Start: August [...] End: October 15, 2024 Negrita Vital NP, SPORTS BETTING MANAGER-C Attending Provider Active Start: October 15, 2024 End: October 15, 2024 Team Status: Inactive Member Role/Relationship Status Dates Marisa Meera William , SPORTS BETTING MANAGER-C Primary Care Provider Acti ve Start: November 02, 2024 End: November 02, 2024 Dr. Mike Dill DO Emergency Provider Active Start: November 02, 2024 End: November 02, 2024 Team Status: Inactive Member Role/Relationship Status Dates Marisa William SPORTS BETTING MANAGER-C Primary Care Provider Acti ve Start: November [...] 2024 End: November 14, 2024 Marisa William SPORTS BETTING MANAGER-C Primary Care Provider Acti ve Start: November 14, 2024 End: November 14, 2024 Team Status: Inactive Member Role/Relationship Status Dates Marisa William SPORTS BETTING MANAGER-C Primary Care Provider Acti ve Start: November [...] 2024 End: December 12, 2024 Marisa William SPORTS BETTING MANAGER-C Primary Care Provider Acti ve Start: December [...] End: October 15, 2024 Negrita Vital NP, SPORTS BETTING MANAGER-C Attending Provider Active Start: October 15, 2024 [...] 2025 End: January 09, 2025 Marisa William SPORTS BETTING MANAGER-C Primary Care Provider Acti ve Start: January 09, 2025 End: January 09, 2025 Team Status: Active Member Role/Relationship Status Dates Marisa William SPORTS BETTING MANAGER-C Primary care physician Act jenn Team Status: Inactive Member Role/Relationship Status Dates Dr. Unique Rivas MD Primary care physician Activ e Start: October 15, 2024 End: October 15, 2024 Dr. Unique Rivas MD Referring Provider Active Start: October 15, 2024 End: October 15, 2024 Negrita Vital NP, SPORTS BETTING MANAGER-C Attending physician Active Start: October 15, 2024 End: October 15, 2024 Team Status: Inactive Member Role/Relationship Status Dates Marisa William SPORTS BETTING MANAGER-C Primary care physician Act jenn Start: November [...] 2024 End: November 14, 2024 Marisa William , SPORTS BETTING MANAGER-C Primary care physician Act jenn Start: November 14, 2024 End: November 14, 2024 Team Status: Inactive Member Role/Relationship Status Dates Marisa William , SPORTS BETTING MANAGER-C Primary care physician Act jenn Start: November [...] End: December 12, 2024 Marisa William , SPORTS BETTING MANAGER-C Primary care physician Act jenn Start: December 12, 2024 End: December 12, 2024 Team Status: Inactive Member Role/Relationship Status Dates Dr. Unique Rivas MD Referring Provider Active Start: January 09, 2025 End: January 09, 2025 Dr. Nereida Chou MD Attending physician Active Start: January 09, 2025 End: January 09, 2025 Marisa William SPORTS BETTING MANAGER-C Primary care physician Act jenn Start: January 09, 2025 End: January 09, 2025 Team Status: Inactive Member Role/Relationship Status Dates Marisa William SPORTS BETTING MANAGER-C Primary care physician Act jenn Start: January 09, 2025 End: January 09, 2025 Dr. Nereida Chou MD Attending physician Active Start: January 09, 2025 End: January 09, 2025 Team Status: Inactive Member Role/Relationship Status Dates Marisa William , SPORTS BETTING MANAGER-C Primary care physician Act jenn Start: January 27, 2025 End: January 27, 2025 Marisa William SPORTS BETTING MANAGER-C Referring Provider Active Start: January 27, 2025 End: January 27, 2025 Negrita Vital NP, SPORTS BETTING MANAGER-C Attending physician Active Start: January 27, 2025 End: January 27, 2025 Team Status: Inactive Member Role/Relationship Status Dates DEBORAH Paniagua Primary care physician Act jenn Start: January 29, 2025 End: January 29, 2025 Glendy Arvizu CNM Attending physician Active Start: January 29, 2025 End: January 29, 2025 Glendy Arvizu CNM Referring Provider Active S tart: January 29, 2025 End: January 29, 2025 Team Status: Inactive Member Role/Relationship Status Dates DEBORAH Paniagua Primary care physician Act jenn Start: February 10, 2025 End: February 10, 2025 DEBORAH Paniagua Referring Provider Active Start: February 10, 2025 [...] section and content) DATE CREATED AUTHOR 07/31/2024 [facility] DATE CREATED AUTHOR AUTHOR'S ORGANIZ ATION 12/21/2024 [facility] DATE CREATED AUTHOR AUTHOR'S ORGANIZ ATION 02/25/2025 [facility] DATE CREATED AUTHOR AUTHOR'S ORGANIZ ATION 03/12/2025 [facility] DATE CREATED AUTHOR AUTHOR'S ORGANIZ ATION 03/17/2025 [facility] FOR RECORDS PERTAINING TO PATIENTS WHO [...] BE BASED ON THE PRIMARY CLINICAL RECORDS. [employer] provides no warranty or guarantee of the accuracy or completeness of information in this document.
[2025-03-29 15:03] VITALS: BMI 36.3
[2025-03-29 15:12] VITALS: BP 124/76; PULSE 107
[2025-03-29 15:20] VITALS: PULSE 104; RESP 16; TEMP 36.1; O2SAT 98
[2025-03-29 15:27] VITALS: BP 131/79; PULSE 107
[2025-03-29 15:42] VITALS: BP 119/72; PULSE 100
--- NOTE | 2025-03-29 21:15 | OB.TRI.HP_ITS ---
HPI - General HPI Narrative NAN FLORES, is a 25 F G2, P0 who presents with some swelling in her feet at 36 weeks gestation. care has been uneventful and she had recent PIH labs checked which were normal. Since she was having some swelling she decided to come to labor and delivery and have her blood pressure checked. She denies any other problems at this time or PIH symptoms. Maternal Data Information KELTON Calculator 2 Estimated Delivery Date Method Current WG Current Estimate 04/23/25 LMP (Certain) 36w 3d Other Estimates 04/23/25 Ultrasound #1 36w 3d Gestational age: 36 weeks 3 days gestation PFSH PFS Medical History ADHD Anxiety , ectopic, tubal Home Medications ?Medication ?Instructions ?Recorded ?Last Taken ?Type docosahexaenoic acid 200 mg mg PO 08/27/24 Unknown His tory capsule ( DHA) Allergy/AdvReac Type Severity Reaction Status Date / Time No Known Allergies Allergy Verified 03/29/25 14:59 Family History Mother Thyroid disorder Adopted Hypertension Hyperlipidemia Grandmother Hypertension Grandfather Hypertension Father Asthma Surgical History History of ectopic Social History adopted: No household members: significant other and other details: Brother & his baby current occupational status: employed current occupation: [employer] current occupational exposures/hazards: No pets and animals: Yes (Not managing litterbox) pets and animals: cat(s) and dog(s) history of recent travel: No sexually active: Yes Smoking Status: Former smoker quit date: 08/25/24 Electronic Cigarette Use: with nicotine quit status: quit date established alcohol intake: never substance use type: does not use well-balanced diet: daily or most days caffeine: Yes Type: carbonated beverages Number of servings: 1 eating out: 1-3 times/week during the past year weight has: remained stable what type of physical activity do you participate in: none christopher/scientology: None seatbelt use: always do you feel safe at home: Yes additional social history: BF: Fausto - [employer] History 2 Elective abortions Hx Para 0 Spontaneous abortions 0 Hx # Term Pregnancies Ectopic pregnancies 1 Hx # Pregnancies Multiple births # of living children 0 Past Pregnancies Del. Date Name GA/Weeks Outcome Route Bth Weight Infant Gen Labor Lgth Anesthesia Del Arianatedson Provider FOB 09/08/20 4 ectopic SM Delivery Date: 09/08/20 Last Updated by: Farzaneh Deal RN Right ovarian tubal Visit Details Expected Delivery Route/Plan Labor Preferences- CB/BF classes: encouraged labor support person: Fausto labor intervention preferences: [] pain management options preferred: epidural cut cord/dad catch: cord : yes PP control planned: discussed discussed possible routes of delivery and associated risks: [] special requests: [] Plans Covid status: [] Flu vaccine: [] Tdap vaccine: [] Rhogam: NA LARC form signed: yes Problem list reviewed and updated with the most current plan of care details and appropriate orders placed. Relevant counseling for the gestational age provided. Continue routine care and follow up unless otherwise noted in visit notes/problem list details OB Flowsheet Initial Weight: Not Recorded Date -?-?-?-?-?-?-?-?-?-?-?-?- EGA Weight BP Urine Prot -?-?-?-?-?-?-?-?-?-?-?-?- Glucose FHR FuHt Pres Dilation -?-?-?-?-?-?-?-?-?-?-?-?- Effaced St Visit Note 09/16/24 -?-?-?-?-?-?-?-?-?-?-?-?- 8w 5d 142 lb 2 oz -?-?-?-?-?-?-?-?-?-?-?-?- 168 -?-?-?-?-?-?-?-?-?-?-?-?- JV- CRL consist ent with LMP. Desires nipt at 10 weeks. JV- CRL consistent with LMP . suspect arcuate shaped uterus. Desires nipt at 10 weeks. 10/15/24 -?-?-?-?-?-?-?-?-?-?-?-?- 12w 6d 143 lb 6 oz 116/70 Nega tive -?-?-?-?-?-?-?-?-?-?-?-?- Negative 147 -?-?-?-?-?-?-?-?-?-?-?-?- MH-No VB. Vomit ed up zithromax for chlamydia. Will retreat and instructed on use of zofran prior. Br US confirm FHT 11/14/24 -?-?-?-?-?-?-?-?-?-?-?-?- 17w 1d 143 lb 8 oz 128/71 Trac e -?-?-?-?-?-?-?-?-?-?-?-?- Negative 150 -?-?-?-?-?-?-?-?-?-?-?-?- KW- ER follow up for vaginal bleeding. Dx with possible placenta previa but unsure of severity. still having some spotting in the mornings with occasional cramping. 10 dip-neg. Did get the rest of the atb for chlamydia in the ER and was able to keep it down. will repeat GCC today. Discussed importance of MFM anatomy US to look further at placenta. Said she is waiting for insurance- discussed options, will consider and schedule with MFM. Also is considering moving to a practice in [place] due to moving to that area. 12/12/24 -?-?-?-?-?-?-?-?-?-?-?-?- 21w 1d 154 lb 6 oz 118/66 Nega tive -?-?-?-?-?-?-?-?-?-?-?-?- Negative 145 -?-?-?-?-?-?-?-?-?-?-?-?- JV- still having some spotting. anatomy shows clot at the lower uterine segment. She will need to return for further views and for cervical length. She denies cramping. Starting to feel some small movements and shifts 01/09/25 -?-?-?-?-?-?-?-?-?-?-?-?- 25w 1d 160 lb 9 oz 116/70 Nega tive -?-?-?-?-?-?-?-?-?-?-?-?- Negative 140 25 -?-?-?-?-?-?-?-?-?-?-?-?- SM- no vb feels damp sometimes over the past two weeks good fm. SM- no vb feels damp sometim es over the past two weeks good fm. ROM plus sent 01/27/25 -?-?-?-?-?-?-?-?-?-?-?-?- 27w 5d 162 lb 3 oz 122/71 Nega tive -?-?-?-?-?-?-?-?-?-?-?-?- Negative 143 28 -?-?-?-?-?-?-?-?-?-?-?-?- MH-No VB, LOF. G ood FM. Larc. Missed GCT draw time and will return later this week to complete 02/10/25 -?-?-?-?-?-?-?-?-?-?-?-?- 29w 5d 170 lb 128/77 Negative -?-?-?-?-?-?-?-?-?-?-?-?- Negative 144 30 -?-?--?-?-?-?-?-?-?-?-?-?- KW- no vb/lof/ct x. good fm. taking po iron 02/28/25 -?-?-?-?-?-?-?-?-?-?-?-?- 32w 2d 176 lb 5 oz 122/77 Nega tive -?-?-?-?-?-?-?-?-?-?-?-?- Negative 140 33 -?-?-?-?-?-?-?-?-?-?-?-?- JV- pt requests vaginal cultures today. ultrasound shows that clot is now gone. no complaints. 03/12/25 -?-?-?-?-?-?-?-?-?-?-?-?- 34w 0d 176 lb 6 oz 111/76 Nega tive -?-?-?-?-?-?-?-?-?-?-?-?- Negative 140 35 -?-?-?-?-?-?-?-?-?-?-?-?- SM- no vb lof go od fm no regular ctx 03/26/25 -?-?-?-?-?-?-?-?-?-?-?-?- 36w 0d 184 lb 4 oz 123/83 Nega tive -?-?-?-?-?-?-?-?-?-?-?-?- Negative 150 36 -?-?-?-?-?-?-?-?-?-?-?-?- KW- no vb/lof/ct x. good fm. CGG repeated today. GBS today. declines SVE today NST FHR Rate Baby A NST Reactive:: Yes FHR Category:: Category I Assessment & Plan (1) Swelling of ankle: PLAN: 36+ week intrauterine with some swelling in her ankles. No evidence of PIH and recent PIH labs are normal. Blood pressures on labor and delivery were normal and NST was reactive. Reassurance given and patient discharged to home.
== END 2025-03-29 16:00 | disposition home or self-care (01) ==
LOC: WPOUT 14:43 → WP 14:43
PROVIDERS: PCP Nurse Practitioner Family; Visit Provider Obstetrics & Gynecology
DX: O99.891 Other specified diseases and conditions complicating pregnancy (principal); M79.89 Other specified soft tissue disorders; Z87.59 Personal history of other complications of pregnancy, childbirth and the puerperium; Z87.891 Personal history of nicotine dependence; Z3A.36 36 weeks gestation of pregnancy
CPT/HCPCS: 59025; 59050; 99221; G0378

== ENCOUNTER → 2025-04-09 | Outpatient (CLI) | payer MEDICAID, SELFPAY ==
[2025-04-09 12:16] LABS: Hematocrit 33.7 % (37-47); Hemoglobin 10.7 g/dL (12.0-15.0); Immature Granulocytes Count 0.060 X10^3/uL (0.0-0.0); Mean Corp Hgb Conc 31.8 g/dL (32-36); Mean Corpuscular Volume 83.4 fL (81-99); Mean Platelet Vol. 12.9 fl (6.2-12.0); NRBC Flagged by Analyzer 0 % (0-5); Platelet Count 295 K/mm3 (150-450); RBC Distribution Width CV 18.6 % (11.6-14.6); RBC Distribution Width SD 55.7 fl (35.1-43.9); Red Blood Count 4.04 M/mm3 (4.2-5.4); White Blood Count 8.9 K/mm3 (4.4-11.0)
== END | disposition home or self-care (01) ==
PROVIDERS: PCP Nurse Practitioner Family; Visit Provider Student in an Organized Health Care Education/Training Program
DX: O99.019 Anemia complicating pregnancy, unspecified trimester (principal); Z3A.00 Weeks of gestation of pregnancy not specified
CPT/HCPCS: 36415; 85025

== ENCOUNTER → 2025-04-16 | Outpatient (CLI) | payer MEDICAID, SELFPAY ==
[2025-04-16 13:12] LABS: AST(SGOT) 22 U/L (<=31); Alanine Aminotransfer ALT/SGPT 17 U/L (<=34); Albumin, Serum 3.7 g/dL (3.5-5.0); Alkaline Phosphatase 183 U/L (35-104); Bilirubin, Direct 0.10 mg/dL (0.00-0.30); Globulin 3.5 g/dL (2.2-4.2)
== END | disposition home or self-care (01) ==
PROVIDERS: PCP Nurse Practitioner Family; Visit Provider Student in an Organized Health Care Education/Training Program
DX: L29.9 Pruritus, unspecified (principal)
CPT/HCPCS: 36415; 80076

== ENCOUNTER 2025-04-18 18:55 | Inpatient (IN) | payer MEDICAID, SELFPAY ==
--- OUTSIDE RECORDS SUMMARY | 2025-04-18 19:06 | XMS RPT_ITS | CCD ---
Author Organization [facility] Care Team Providers Care Territory Account Executive Name Role Phone Unique Rivas MD Primary Care Provider Dr. Unique Rivas Primary Care Provider Dr. Unique Rivas Referring Provider Zahraa TEAMCENTER CONSULTANT, TEAMCENTER CONSULTANT-C Negrita Attending Provider [phone] NURYS Arvizu Attending Provider [phone] Unique Rivas MD Primary Care Provider Stewart PRESS SMITH HELPER.Marisa RAHMAN Primary Care Provider Stewart PRESS SMITH HELPER.TABLET TECHNICIANMarisa Primary Care Prov ider MARISA WILLIAM Primary Care Unavailabl e MARISA WILLIAM Attending Unavailabl e STEWART, MARISA ORTIZ Primary [facility] Unavailabl e WILLIAM, MARISA ORTIZ Primary [facility] Unavailabl e WILLIAM, MARISA ORTIZ Primary [facility] Unavailabl e WILLIAM, MARISA ORTIZ Primary [facility] Unavailabl e STEWART, MARISA ORTIZ Attending Unavailabl e STEWART, MARISA ORTIZ Primary [facility] Unavailabl e WILLIAM, MARISA ORTIZ Primary [facility] Unavailabl e WILLIAM, MARISA ORTIZ Primary [facility] Unavailabl e Dr. Unique Rivas MD Primary Care Provider Dr. Unique Rivas MD Referring Provider [phone] Dr. Nereida Chou MD Attending Provider Dr. Sarah Ravi DO Attending Provider Dr. Nereida Chou MD Referring Provider Zahraa JOHNSON-CNegrita Attending Provider Stewart TEAMCENTER CONSULTANT-C, Marisa Ortiz Primary Care Provider Dr. Mike [...] Evelyn COX, Dr. Calhoun Referring Provider Zahraa TEAMCENTER CONSULTANT-CNegrita Attending Physician [phone] Stewart TEAMCENTER CONSULTANT-C, Marisa Ortiz Primary Care Physicia n Fuentes CERVANTES, Dr. Mckeon Attending Physician Dr. Mike Dill DO Emergency Department Physi kyra Glendy Arvizu CNM Attending Physician [phone] Ricardo Ramos DO, Dr. Smith Attending Physician Radha COX, Dr. Padron Attending Physician Stewart TEAMCENTER CONSULTANT-C, Marisa Ortiz Referring Provider DEEDEEIT, GATO Oconnor Attending Unavailable SUBITGATO Referring Unavailable SUBIT, GATO Oconnor Admitting Unavailable MARIONCHER FREGOSO Admitting Unavailable CHER SCHULTZ Attending Unavailable CHER SCHULTZ Referring Unavailable LETICIA MOON Attending Unavailable NEREIDA CHOU Referring Unavailabl e MARISA WILLIAM Primary Care Unavailable ZAHRAANEGRITA CAMPOS Referring Unavailable UNIQUE RAMIREZ A Primary Care Unavailable SARAH LACEY Attending Unavailable NEGRITA VITAL Attending Unavailable ZAHRAA NEGRITA S Referring Unavailable SEIDOWSKI, UNIQUE A Primary Care Unavailable SEIDOWSKI, UNIQUE A Primary Care Unavailable SARAH LACEY Attending Unavailable NEREIDA CHOU Referring Unavailabl e LETICIA MOON Attending Unavailable NEREIDA CHOU Referring Unavailabl e WILLIAM, MARISA T Primary Care Unavailable Nereida Chou Attending Unavailable William, Marisa Meera Referring Unavailabl e William, Marisa [place] Primary Care Unavailabl e Sarah Ravi Attending Unavailabl e William, [facility] Primary Care Unavailabl e Nereida Chou Referring Unavailable Nereida Chou Attending Unavailable Seifried, Unique Primary Care Unavailable Nereida Chou Attending Unavailable Seifried, Unique Primary Care Unavailable Seifried, Unique Referring Unavailable Glendy Arvizu Attending Unavailable William, Marisa Meera Referring Unavailabl e William, Marisa [place] Primary Care Unavailabl e Seifried, Unique Referring Unavailable Sarah Ravi Attending Unavailabl e William, [facility] Primary Care Unavailabl e Raul Arizmendi Attending Unavailable Seifried, Unique Primary Care Unavailable Seifried, Unique Referring Unavailable Mike Dill Attending Unavailable William, Marisa [place] Primary Care Unavailabl e Glendy Arvizu Attending Unavailable Glendy Arvizu Referring Unavailable William, [facility] Care Unavailabl e Nereida Chou Referring Unavailable Nereida Chou Attending Unavailable Seifried, Unique Primary Care Unavailable Seifried, Unique Referring Unavailable Negrita Vital Attending Unavailable Seifried, Unique Primary Care Unavailable Nereida Chou Attending Unavailable William, Marisa Meera Primary Care Unavailabl e Nereida Chou Attending Unavailable William, Marisa [place] Primary Care Unavailabl e Raul Arizmendi Referring Unavailable Raul Arizmendi Attending Unavailable Seifried, Unique Primary Care Unavailable Glendy Arvizu Referring Unavailable Glendy Arvizu Attending Unavailable William, Marisa [facility] Care Unavailabl e Seifried, Unique Referring Unavailable Glendy Arvizu Attending Unavailable William, Marisa [place] Primary Care Unavailabl e Sarah Ravi Attending [...] on above: Take 2 tablets by mo [facility] every 6 hours as needed for pain [...] Comment on above: Take [facility] tablet by [facility] two times a day for 7 [...] Comment on above: Take 1 tablet by [facility] every 6 hours as needed for pain for up to 15 days. Take 1.5 tablets by mouth three times a day for 10 days. Emmons (Nk) (1 source) Start: 3 Emmons (Nk) Active February 13, 2023 12:00am ondansetron [...] on above: , KELTON 04/23/25, BF: Edward [id number], KELTON 5, BF: Fausto Other complications of (20 sources) Chlamydia trachomatis infection in ; Translations: [Other maternal infectious and parasitic diseases complicating , unspecified trimester] 10-15-2024 Episodic Comment on above: + @ NOB. + @ NOB. Treated and vomited med. Amo Rx sent and zofram prior. + @ NOB. Treated and vomited med. Amo Rx sent and zofram prior. Rpt test [...] [facility] Misc. COMMENT Normal . [facility] Comment on above: Order Comment: Comme nts: [id number], Bile acids, Serum [id number] acids Result Comment: Test Ordered: [id number] Bile Acids, Fractionated LCMS Ursodeoxycholic Acids <0.10 [...] developed and its performance characteristics determined by [facility]. It has not been cleared or approved by the Food and Drug Administration. Reference Range: All Ages: <9.2 Performed at: [facility] [address] [place] [id number] Drop Forger Helper: Jasmina Ellis MD, Phone: [phone] Performed at: [address] [id number] Drop Forger Helper: Jhon Tillman PhD, Phone: [phone] Performed By: #### M 100.3200, L7000.1800, #### [facility] [address] [place], [address] CBC W/Diff, Automatedon 11-0 5-2024 Absolute Lymph 1.43 X10 3/uL Normal 0.83-4.51 [facility] Comment on above: Performed By: #### M 100.3200, L7000.1800, #### [facility] [address] [place], [address] Absolute Neut 7.5 X10 3/uL Normal 2.0-7.7 [facility] Comment on above: Performed By: #### M 100.3200, L7000.1800, #### [facility] [address] [place], [address] Basophils/100 WBC (Bld) 0.3 % Normal 0-1 [facility] Comment on above: Performed By: #### M 100.3200, L7000.1800, #### [facility] [address] [place], [address] Eosinophils/100 WBC (Bld) 0.9 % Normal 0-5 [facility] Comment on above: Performed By: #### M 100.3200, L7000.1800, #### [facility] [address] [place], [address] Erythrocyte distribution width (RBC) [Ratio] 17.4 % High 11.6-14.6 [facility] Comment on above: Performed By: #### M 100.3200, L7000.1800, #### [facility] [address] [place], [address] Hematocrit (Bld) [Volume fraction] 33.6 % Low 37-47 [facility] Comment on above: Performed By: #### M 100.3200, L7000.1800, #### [facility] [address] [place], [address] Hemoglobin (Bld) [Mass/Vol] 10.6 g/dL Low 12.0-15.0 [facility] Comment on above: Performed By: #### M 100.3200, L7000.1800, #### [facility] [address] [place], [address] IG% 0.700 Normal 0.0-0.9 [facility] Comment on above: Result Comment: IG% - Immature Granulocytes (promyelocytes, myelocytes and metamyelocytes) > 1% indicates that a LEFT SHIFT is Present. Performed By: #### M 100.3200, L7000.1800, #### [facility] [address] [place], [address] Lymphocytes/100 WBC (Bld) 14.4 % Low 19-41 [facility] Comment on above: Performed By: #### M 100.3200, L7000.1800, #### [facility] [address] [place], [address] MCH (RBC) [Entitic mass] 26.6 pg Low 27.0-32.0 [facility] Comment on above: Performed By: #### M 100.3200, L7000.1800, #### [facility] [address] [place], [address] MCHC (RBC) [Mass/Vol] 31.5 g/dL Low 32-36 [facility] Comment on above: Performed By: #### M 100.3200, L7000.1800, #### [facility] [address] [place], [address] MCV (RBC) [Entitic vol] 84.4 fL Normal 81-99 [facility] Comment on above: Performed By: #### M 100.3200, L7000.1800, #### [facility] [address] [place], [address] Monocytes/100 WBC (Bld) 7.8 % Normal 0-10 [facility] Comment on above: Performed By: #### M 100.3200, L7000.1800, #### [facility] [address] [place], [address] Neutrophils/100 WBC (Bld) 75.9 % High 47-70 [facility] Comment on above: Performed By: #### M 100.3200, L7000.1800, #### [facility] [address] [place], [address] Nucleated RBC (Bld) [#/Vol] 0 10*3/uL Normal 0-5 [facility] Comment on above: Performed By: #### M 100.3200, L7000.1800, #### [facility] [address] [place], [address] Platelet mean volume (Bld) [Entitic vol] 12.2 fL High 6.2-12.0 [facility] Comment on above: Performed By: #### M 100.3200, L7000.1800, #### [facility] [address] [place], [address] Platelets (Bld) [#/Vol] 313 10*3/uL Normal 150-450 [facility] Comment on above: Performed By: #### M 100.3200, L7000.1800, #### [facility] [address] [place], [address] RBC (Bld) [#/Vol] 3.98 10*6/uL Low 4.2-5.4 [facility] Comment on above: Performed By: #### M 100.3200, L7000.1800, #### [facility] [address] [place], [address] RDW SD 53.3 fl High 35.1-43.9 [facility] Comment on above: Performed By: #### M 100.3200, L7000.1800, #### [facility] [address] [place], [address] WBC (Bld) [#/Vol] 9.9 10*3/uL Normal 4.4-11.0 [facility] Comment on above: Performed By: #### M 100.3200, L7000.1800, #### [facility] [address] [place], [address] Comprehensive Metabolic Prof ilon 03-12-2025 Albumin [Mass/Vol] 3.6 g/dL Normal 3.5-5.0 [facility] Comment on above: Order Comment: 1C503 640, Bile acids, Serum FZ Performed By: #### M 100.3200, L7000.1800, #### [facility] [address] [place], [address] Albumin/Globulin [Mass ratio] 1.1 {ratio} Normal 0.9-2.4 [facility] Comment on above: Order Comment: 1C503 640, Bile acids, Serum FZ Performed By: #### M 100.3200, L7000.1800, #### [facility] [address] [place], [address] ALK PHOS 158 U/L High 35-104 [facility] Comment on above: Order Comment: 1C503 640, Bile acids, Serum FZ Performed By: #### M 100.3200, L7000.1800, #### [facility] [address] [place], [address] ALT [Catalytic activity/Vol] 14 U/L Normal <=34 [facility] Comment on above: Order Comment: 1C503 640, Bile acids, Serum FZ Performed By: #### M 100.3200, L7000.1800, #### [facility] [address] [place], [address] AST [Catalytic activity/Vol] 18 U/L Normal <=31 [facility] Comment on above: Order Comment: 1C503 640, Bile acids, Serum FZ Performed By: #### M 100.3200, L7000.1800, #### [facility] [address] [place], [address] Bilirubin [Mass/Vol] 0.21 mg/dL Normal 0.00-1.30 [facility] Comment on above: Order Comment: 1C503 640, Bile acids, Serum FZ Performed By: #### M 100.3200, L7000.1800, #### [facility] [address] [place], [address] BUN/CRE 15.9 RATIO Normal 10-20 [facility] Comment on above: Order Comment: 1C503 640, Bile acids, Serum FZ Performed By: #### M 100.3200, L7000.1800, #### [facility] [address] [place], [address] Calcium [Mass/Vol] 9.4 mg/dL Normal 7.6-11.0 [facility] Comment on above: Order Comment: 1C503 640, Bile acids, Serum FZ Performed By: #### M 100.3200, L7000.1800, #### [facility] [address] [place], [address] Chloride [Moles/Vol] 103 mmol/L Normal 98-108 [facility] Comment on above: Order Comment: 1C503 640, Bile acids, Serum FZ Performed By: #### M 100.3200, L7000.1800, #### [facility] [address] [place], [address] CO2 [Moles/Vol] 21.9 mmol/L Normal 21.0-32.0 [facility] Comment on above: Order Comment: 1C503 640, Bile acids, Serum FZ Performed By: #### M 100.3200, L7000.1800, #### [facility] [address] [place], [address] Creatinine [Mass/Vol] 0.54 mg/dL Low 0.70-1.20 [facility] Comment on above: Order Comment: 1C503 640, Bile acids, Serum FZ Performed By: #### M 100.3200, L7000.1800, #### [facility] [address] [place], [address] GAP 12 Normal 5-15 [facility] Comment on above: Order Comment: 1C503 640, Bile acids, Serum FZ Performed By: #### M 100.3200, L7000.1800, #### [facility] [address] [place], [address] GFR/1.73 sq M.predicted among non-blacks MDRD (S/P/Bld) [Vol rate/Area] 133 mL/min/{1.73_m2} Normal >60 [facility] Comment on above: Order Comment: 1C503 640, Bile acids, Serum FZ Result Comment: mL/m in/1.73m2 CKD-EPI Creatinine Equation (2020) Performed By: #### M 100.3200, L7000.1800, #### [facility] [address] [place], [address] Globulin (S) [Mass/Vol] 3.3 g/dL Normal 2.2-4.2 [facility] Comment on above: Order Comment: 1C503 640, Bile acids, Serum FZ Performed By: #### M 100.3200, L7000.1800, #### [facility] [address] [place], [address] Glucose [Mass/Vol] 100 mg/dL High 70-99 [facility] Comment on above: Order Comment: 1C503 640, Bile acids, Serum FZ Performed By: #### M 100.3200, L7000.1800, #### [facility] [address] [place], [address] Potassium [Moles/Vol] 3.7 mmol/L Normal 3.3-5.1 [facility] Comment on above: Order Comment: 1C503 640, Bile acids, Serum FZ Performed By: #### M 100.3200, L7000.1800, #### [facility] [address] [place], [address] Sodium [Moles/Vol] 137 mmol/L Normal 133-145 [facility] Comment on above: Order Comment: 1C503 640, Bile acids, Serum FZ Performed By: #### M 100.3200, L7000.1800, #### [facility] [address] [place], [address] T PROT 6.9 g/dL Normal 5.9-8.4 [facility] Comment on above: Order Comment: 1C503 640, Bile acids, Serum FZ Performed By: #### M 100.3200, L7000.1800, M100.1999 #### [facility] [address] [place], [address] Urea nitrogen [Mass/Vol] 9 mg/dL Normal 4-19 [facility] Comment on above: Order Comment: 1C503 640, Bile acids, Serum FZ Performed By: #### M 100.3200, L7000.1800, M100.1999 #### [facility] [address] [place], [address] Ferritinon 03-12-2025 Ferritin [Mass/Vol] 9 ng/mL Low 22-378 [facility] Comment on above: Performed By: #### M 100.3200, L7000.1800, M100.1999 #### [facility] [address] [place], [address] Iron+Iron Binding Capacityon 03-12-2025 TIBC 559 ug/dL High 250-450 [facility] Comment on above: Order Comment: 1C503 640, Bile acids, Serum FZ Performed By: #### M 100.3200, L7000.1800, M100.1999 #### [facility] [address] [place], [address] City Maintenance Manager Office Visit Reporton 03-12-2025 City Maintenance Manager Office Visit Report [facility] [address], [address] [place] [address] OFFICE VISIT Date of Service: 03/12/25 MR#: [id number] Acct: [id number] Name: NAN MEYERS Rep #: [id number] : 2000 Provider: Dr. Nereida velasquez MD Age/Sex: 25/F Location: [facility] Status: Signed Intake Vital Signs 01/09/25 10:32 01/27/25 09:50 02/28/25 14:07 03/12/25 13:56 03/12/25 14:00 Height 5 ft 5 ft 5 ft 5 ft 5 ft Weight: 176 lb 5 oz 176 lb 6 oz BMI 34.4 34.4 BP 122/77 H 111/76 Intake Visit Reasons: 34 WK OB Filler Shredding Machine Loader Required: No Is patient in pain?: No [...] current occupational status: employed current occupation: [employer] current occupational exposures/hazards: No pets and animals: [...] physical activity do you participate in: none christopher/congregational: None seatbelt use: always do you feel safe at home: Yes additional social history: BF: Fausto - [employer] History 2 Elective abortions Hx Para 0 [...] (more content not included)... Normal [facility] Chlamydia/GC VISHNU aptimaon CHLAMY,NUC ACID Negative Normal Negative [facility] Comment on above: Performed By: #### M 100.3200, L7000.1800, M100.1999 #### [facility] [address], [address] GC BY NUC ACID Negative Normal Negative [facility] Comment on above: Result Comment: Perf ormed at: =G - [facility] [address] [id number] Drop Forger Helper: Birdie Tobin MD, Phone: [phone] Performed By: #### M 100.3200, L7000.1800, M100.1999 #### [facility] [address] [place], [address] Genital Culture Comprehensiv elton 03-03-2025 VAC Reason for Exam: vaginal discharge Normal vaginal francis isolated. No yeast, Gardnerella, Neisseria or beta-hemolytic Streptococcus isolated. Normal [facility] Comment on above: Performed By: #### M 100.3200, L7000.1800, M100.1999 #### [facility] [address] [place], [address] Gram Stainon 02-28-2025 GS Reason for Exam: vaginal discharge Gram Stain 2+ Gram positive rods 3+ Gram negative rods No Gram negative diplococci Score =5 Interpretation: 0-3 Normal, 4-6 Intermediate, 7-10 Positive BV Normal [facility] Comment on above: Performed By: #### M 100.3200, L7000.1800, M100.1999 #### [facility] [address] [place], [address] City Maintenance Manager Office Visit Reporton 02-28-2025 City Maintenance Manager Office Visit Report [facility] [address], [address] [place] [address] OFFICE VISIT Date of Service: 02/28/25 MR#: [id number] Acct: [id number] Name: NAN MEYERS Rep #: [id number] : 2000 Provider: Dr. Sarah Zamudio DO Age/Sex: 25/F Location: [facility] [place] Status: Signed Intake Vital Signs 01/09/25 10:32 01/27/25 09:50 02/10/25 14:17 02/28/25 14:07 Height 5 ft 5 ft 5 ft 5 ft Weight: 176 lb 5 oz BMI 34.4 BP 122/77 H Intake Visit Reasons: 32 WK OB Filler Shredding Machine Loader Required: No Is patient in pain?: No [...] baby current occupational status: employed current occupation: [employer] current occupational exposures/hazards: No pets and animals: [...] physical activity do you participate in: none christopher/congregational: None seatbelt use: always do you feel safe at home: Yes additional social history: BF: Fausto - [employer] History 2 Elective abortions Hx Para 0 [...] (more content not included)... Normal [facility] City Maintenance Manager Office Visit Reporton 02-10-2025 City Maintenance Manager Office Visit Report [facility] [address] [place] [address] OFFICE VISIT Date of Service: 02/10/25 MR#: [id number] Acct: [id number] Name: NAN MEYERS Rep #: [id number] : 2000 Provider: NURYS Swenson ams Age/Sex: 25/F Location: [facility] [place] Status: Signed with Addenda ADDENDUM by Meagan Parish on 02/10/25 at 1436 Office Procedure Documentation entered by Meagan Parish 02/10/25 14:36: Immunizations Adacel(Tdap Adolesn/Adult)(PF) 2 Lf-(2.5-5-3-5)-5 Lf/0.5 mL IM syringe Performing Provider: Glendy Arvizu CNM Performing Location: [facility] Administered by: Meagan Parish on 02/10/25 14:35 Dose Route Admin Location Dispensed Lot Number Expiration Date Package NDC NDC Carton Forming Machine Tender 0.5 mL IM Left Deltoid 0.5 mL [id number] 01/04/27 67758-143-01 [id number] JOSE-PASTEUR VIS Given Date VIS Provided VIS Publication Date 02/10/25 Single Vaccine 24 Eligibility Eligibility Date Funding Source Not Applicable Date cc: * Signed Intake Vital Signs 01/09/25 10:32 01/27/25 09:50 02/10/25 14:17 Height 5 ft 5 ft 5 ft Weight: 170 lb BMI 33.2 BP 128/77 H Intake Visit Reasons: 30 WK OB Chief Complaint: 30wk OB Filler Shredding Machine Loader Required: No Is patient in pain?: No [...] current occupational status: employed current occupation: [employer] current occupational exposures/hazards: No pets and animals: [...] physical activity do you participate in: none christopher/congregational: None seatbelt use: always do you feel safe at home: Yes additional social history: BF: Fausto - [employer] History 2 Elective abortions Hx Para 0 [...] (more content not included)... Normal [facility] Absolute lymphocyte countOrd ered By: Nereida Chou on 01-29-2025 Lymphocytes Auto (Unsp spec) [#/Vol] 1.67 10*3/uL 0.83-4.51 [facility] Absolute neutrophil countOrd ered By: Nereida Chou on 01-29-2025 Neutrophils (Bld) [#/Vol] 6.7 10*3/uL 2.0-7.7 [facility] Automated lymphocyte count a s percentage of total leukocytesOrdered By: Nereida Chou on 01-29-2025 Lymphocytes/100 WBC Auto (Unsp spec) 17.7 % Low 19-41 [facility] Basophil percentageOrdered B y: Nereida Chou on 01-29-2025 Basophils/100 WBC (Bld) 0.3 % 0-1 [facility] CBC W/Diff, Automatedon 01-07 Absolute Lymph 1.67 X10 3/uL Normal 0.83-4.51 [facility] Comment on above: Performed By: #### M 100.3200, L7000.1800, #### [facility] Laboratory [address] [place], [address] Absolute Neut 6.7 X10 3/uL Normal 2.0-7.7 [facility] Comment on above: Performed By: #### M 100.3200, L7000.1800, #### [facility] [address] [place], [address] Basophils/100 WBC (Bld) 0.3 % Normal 0-1 [facility] Comment on above: Performed By: #### M 100.3200, L7000.1800, #### [facility] [address] [place], [address] Eosinophils/100 WBC (Bld) 1.7 % Normal 0-5 [facility] Comment on above: Performed By: #### M 100.3200, L7000.1800, #### [facility] [address] [place], [address] Erythrocyte distribution width (RBC) [Ratio] 14.0 % Normal 11.6-14.6 [facility] Comment on above: Performed By: #### M 100.3200, L7000.1800, #### [facility] [address] [place], [address] Hematocrit (Bld) [Volume fraction] 29.9 % Low 37-47 [facility] Comment on above: Performed By: #### M 100.3200, L7000.1800, #### [facility] [address] [place], [address] Hemoglobin (Bld) [Mass/Vol] 9.9 g/dL Low 12.0-15.0 [facility] Comment on above: Performed By: #### M 100.3200, L7000.1800, #### [facility] [address] [place], [address] IG% 0.800 Normal 0.0-0.9 [facility] Comment on above: Result Comment: IG% - Immature Granulocytes (promyelocytes, myelocytes and metamyelocytes) > 1% indicates that a LEFT SHIFT is Present. Performed By: #### M 100.3200, L7000.1800, #### [facility] [address] [place], [address] Lymphocytes/100 WBC (Bld) 17.7 % Low 19-41 [facility] Comment on above: Performed By: #### M 100.3200, L7000.1800, #### [facility] [address] [place], [address] MCH (RBC) [Entitic mass] 28.0 pg Normal 27.0-32.0 [facility] Comment on above: Performed By: #### M 100.3200, L7000.1800, #### [facility] [address] [place], [address] MCHC (RBC) [Mass/Vol] 33.1 g/dL Normal 32-36 [facility] Comment on above: Performed By: #### M 100.3200, L7000.1800, #### [facility] [address] [place], [address] MCV (RBC) [Entitic vol] 84.7 fL Normal 81-99 [facility] [place] Comment on above: Performed By: #### M 100.3200, L7000.1800, #### [facility] [address] [place], [address] Monocytes/100 WBC (Bld) 9.1 % Normal 0-10 [facility] [place] Comment on above: Performed By: #### M 100.3200, L7000.1800, #### [facility] [address] [place], [address] Neutrophils/100 WBC (Bld) 70.4 % High 47-70 [facility] Comment on above: Performed By: #### M 100.3200, L7000.1800, #### [facility] [address] [place], [address] Nucleated RBC (Bld) [#/Vol] 0 10*3/uL Normal 0-5 [facility] Comment on above: Performed By: #### M 100.3200, L7000.1800, #### [facility] [address] [place], [address] Platelet mean volume (Bld) [Entitic vol] 11.4 fL Normal 6.2-12.0 [facility] Comment on above: Performed By: #### M 100.3200, L7000.1800, M100 #### [facility] [address] [place], [address] Platelets (Bld) [#/Vol] 360 10*3/uL Normal 150-450 [facility] Comment on above: Performed By: #### M 100.3200, L7000.1800, #### [facility] [address] [place], [address] RBC (Bld) [#/Vol] 3.53 10*6/uL Low 4.2-5.4 [facility] Comment on above: Performed By: #### M 100.3200, L7000.1800, M1 #### [facility] [address] [place], [address] RDW SD 42.8 fl Normal 35.1-43.9 [facility] Comment on above: Performed By: #### M 100.3200, L7000.1800, M100 #### [facility] [address] [place], [address] WBC (Bld) [#/Vol] 9.5 10*3/uL Normal 4.4-11.0 [facility] Comment on above: Performed By: #### M 100.3200, L7000.1800, #### [facility] [address] [place], [address] Eosinophil percentageOrdered By: Nereida Chou on 01-29-2025 Eosinophils/100 WBC (Bld) 1.7 % 0-5 [facility] Erythrocyte distribution wid th ratioOrdered By: Nereida Chou on 01-29-2025 Erythrocyte distribution width (RBC) [Ratio] 14.0 % 11.6-14.6 [facility] Erythrocyte distribution wid th standard deviationOrdered By: Nereida Chou on 01-29-2025 Erythrocyte distribution width (RBC) [Ratio] 42.8 fl 35.1-43.9 [facility] Glucose Challenge Gest 1H 50 ananda 01-29-2025 GLU GEST 50g 1H 95 mg/dL Normal 70-140 [facility] Comment on above: Result Comment: AMENDED REPORT 01/29/25 1317 GLU GEST 50g 1H previously reported as: 102 mg/dL Performed By: #### M 100.3200, L7000.1800, #### [facility] [address] [place], [place], [address] Glucose measurement at 2 janay rs post-dose gestational glucose tolerance testOrdered By: Nereida Chou on 01-29-2025 Glucose [Mass/Vol] 95 mg/dL 70-140 [facility] Comment on above: Previous reported re sult: 102 mg/dLEdited by: AUTOINS on 01/29/25:1317 AMENDED REPORT 01/29/25 1317 GLU GEST 50g 1H previously reported as: 102 mg/dL HIVon 01-29-2025 HIV Non-Reactive Normal Nonreactive [facility] Comment on above: Result Comment: Non- Reactive Reactive Repeatedly reactive samples must be confirmed according to CDC recommended confirmatory algorithms. The subresults for either HIVAG or AHIV can be used as an aid in the selection of the confirmation algorithm for reactive samples. Send out specimens with Reactive results to [facility] for confirmation. Order the HIV antibody detection and differentiation: #[id number] Performed By: #### M 100.3200, L7000.1800, #### [facility] [address] [place], [address] Hematocrit Auto (Bld) [Volum e fraction]Ordered By: Nereida Chou on 01-29-2025 Hematocrit (Bld) [Volume fraction] 29.9 % Low 37-47 [facility] Hemoglobin measurementOrdere d By: Nereida Chou on 01-29-2025 Hemoglobin (Bld) [Mass/Vol] 9.9 g/dL Low 12.0-15.0 [facility] Immature granulocytes/100 WB C Auto (Bld)Ordered By: Nereida Chou on 01-29-2025 Immature granulocytes/100 WBC (Bld) 0.800 % 0.0-0.9 [facility] Comment on above: IG% - Immature Granu locytes (promyelocytes, myelocytes and metamyelocytes) > 1% indicates that a LEFT SHIFT is Present. MCV (mean corpuscular volume ) determinationOrdered By: Nereida Chou on 01-29-2025 MCV (RBC) [Entitic vol] 84.7 fL 81-99 [facility] Mean corpuscular hemoglobin (MCH) determinationOrdered By: Nereida Chou on 01-29-2025 MCH (RBC) [Entitic mass] 28.0 pg 27.0-32.0 [facility] Mean corpuscular hemoglobin concentration (MCHC) determinationOrdered By: Nereida Chou on 01-29-2025 MCHC (RBC) [Mass/Vol] 33.1 g/dL 32-36 [facility] Mean platelet volume determi nationOrdered By: Nereida Chou on 01-29-2025 Platelet mean volume (Bld) [Entitic vol] 11.4 fL 6.2-12.0 [facility] Monocyte percentageOrdered B y: Nereida Chou on 01-29-2025 Monocytes/100 WBC (Bld) 9.1 % 0-10 [facility] Neutrophil percentageOrdered By: Nereida Chou on 01-29-2025 Neutrophils/100 WBC (Bld) 70.4 % High 47-70 [facility] No Panel InformationOrdered By: Nereida Chou on 01-29-2025 HIV (1&2) Antibody Non-Reactive Nonreactive [facility] Comment on above: Non-ReactiveReactive Repeatedly reactive samples must be confirmed according to CDC recommended confirmatory algorithms. The subresults for either HIVAG or AHIV can be used as an aid in the selection of the confirmation algorithm for reactive samples.Send out specimens with Reactive results to [facility] for confirmation.Order the HIV antibody detection and differentiation: #[id number] Nucleated red blood cell per centageOrdered By: Nereida Chou on 01-29-2025 Nucleated RBC/100 WBC (Bld) [Ratio] 0 % 0-5 [facility] Platelet countOrdered By: Andrei Chou on 01-29-2025 Platelets (Bld) [#/Vol] 360 10*3/uL 150-450 [facility] RBC Auto (Bld) [#/Vol]Ordere d By: Nereida Chou on 01-29-2025 RBC (Bld) [#/Vol] 3.53 10*6/uL Low 4.2-5.4 [facility] Syphilis Antibodieson 2024 Syphilis Abs Non-Reactive Normal Nonreactive [facility] Comment on above: Performed By: #### M 100.3200, L7000.1800, M100.2000 #### [facility] [address] [place], [address] White blood cell (WBC) count Ordered By: Nereida Chou on 01-29-2025 WBC (Bld) [#/Vol] 9.5 10*3/uL 4.4-11.0 [facility] Laboratory - Chemistry and C hemistry - challengeOrdered By: Negrita Vital on 01-27-2025 Glucose Ql (U) Negative [facility] Laboratory - UrinalysisOrder ed By: Ngerita Vital on 01-27-2025 Protein Ql (U) Negative [facility] City Maintenance Manager Office Visit Reporton 01-27-2025 City Maintenance Manager Office Visit Report [facility] [address], [address] [place] [address] OFFICE VISIT Date of Service: 01/27/25 MR#: [id number] Acct: [id number] Name: NAN MEYERS Rep #: [id number] : 2000 Provider: DEBORAH grey Age/Sex: 25/F Location: [facility] Status: Signed Intake Vital Signs 12/12/24 13:21 12/12/24 13:48 01/09/25 10:32 01/27/25 09:50 Height 5 ft 5 ft 5 ft 5 ft Weight: 160 lb 9 oz 162 lb 3 oz BMI 31.4 31.6 BP 116/70 122/71 H Intake Visit Reasons: 28 WK 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 Normal [facility] (ROM) Rupture Of Membraneson 01-09-2025 ROM Negative Normal Negative [facility] Comment on above: Result Comment: Amni otic fluid not present indicates No Rupture of Membranes at time of specimen collection. Performed By: #### L 205.1000 #### [facility] Laboratory [address] [place], [address] Laboratory - Chemistry and C hemistry - challengeOrdered By: Nereida Chou on 01-09-2025 Glucose Ql (U) Negative [facility] Laboratory - UrinalysisOrder ed By: Nereida Chou on 01-09-2025 Protein Ql (U) Negative [facility] City Maintenance Manager Office Visit Reporton 01-09-2025 City Maintenance Manager Office Visit Report [facility]'s [address], [address] [place] [id number] OFFICE VISIT Date of Service: 01/09/25 MR#: [id number] Acct: [id number] Name: NAN MEYERS Rep #: [id number] : 2000 Provider: Dr. Nereida velasquez MD Age/Sex: 24/F Location: [facility] Status: Signed Intake Vital Signs 10/15/24 08:32 12/12/24 13:48 01/09/25 10:32 Height 5 ft 5 ft 5 ft Weight: 160 lb 9 oz BMI 31.4 BP 116/70 Intake Visit Reasons: 25 wk ob Filler Shredding Machine Loader Required: No Is patient in pain?: No [...] physical activity do you participate in: none christopher/congregational: None seatbelt use: always do you feel safe at home: Yes additional social history: BF: Fausto - [employer] History 2 Elective abortions Hx Para 0 [...] (more content not included)... Normal [facility] ED Prov Noteon 12-19-2024 ED Prov Note [facility] EMERGENCY DEPARTMENT ATTENDING NOTE: NAME: Nan Dejan Meyers CSN: [id number] 24 y.o. PCP: No, Physician History: Chief [...] All other components within normal limits Narrative: [facility] has implemented the eGFR [...] 12-19-2024 Chloride [Moles/Vol] 104 mmol/L Normal 98-108 [facility] Comment on above: Order Comment: [facility] has implemented the eGFR calculation approach that does not have a coefficient for race that conforms to the NKF-ASN Task Force Recommendations. Performed By: #### P [id number] #### ONED FS[facility] POCT LAB [address] [place] [address] Osiel Nelson D.O. [id number] CO2 [Moles/Vol] 23 mmol/L Normal 21-32 [facility] Comment on above: Order Comment: [facility] has implemented the eGFR calculation approach that does not have a coefficient for race that conforms to the NKF-ASN Task Force Recommendations. Performed By: #### P [id number] #### ONED FS[facility] POCT LAB [address] [place] [address] Osiel Nelson D.O. [id number] Creatinine [Mass/Vol] 0.72 mg/dL Normal 0.40-1.10 [facility] Comment on above: Order Comment: [facility] has implemented the eGFR calculation approach that does not have a coefficient for race that conforms to the NKF-ASN Task Force Recommendations. Performed By: #### P [id number] #### ONED [facility] POCT LAB [address] [place] [address] Osiel Nelson D.OLeonela [id number] Glucose [Mass/Vol] 88 mg/dL Normal 65-99 [facility] Comment on above: Order Comment: [facility] has implemented the eGFR calculation approach that does not have a coefficient for race that conforms to the NKF-ASN Task Force Recommendations. Performed By: #### P [id number] #### ONED FSED POCT LAB [address] [place] [address] Osiel Nelson D.O. [id number] POC GFR 121 mL/min/1.73 m2 Normal >=60 [facility] Comment on above: Order Comment: [facility] has implemented the eGFR calculation approach that does not have a coefficient for race that conforms to the NKF-ASN Task Force Recommendations. Result Comment: Anastasiia mated GFR was calculated using the 2020 CKD-EPI creatinine equation. Performed By: #### P [id number] #### ONED FSED POCT LAB [address] [place] [address] Dejan Barajas.OLeonela [id number] POC IONIZED CALCIUM 4.7 mg/dL Normal 4.5-5.3 [facility] Comment on above: Order Comment: [facility] has implemented the eGFR calculation approach that does not have a coefficient for race that conforms to the NKF-ASN Task Force Recommendations. Performed By: #### P [id number] #### ONED FSED POCT LAB [address] [place] [address] Osiel Nelson D.OLeonela [id number] Potassium [Moles/Vol] 3.4 mmol/L Low 3.5-5.1 [facility] Comment on above: Order Comment: [facility] has implemented the eGFR calculation approach that does not have a coefficient for race that conforms to the NKF-ASN Task Force Recommendations. Performed By: #### P [id number] #### ONED FSED POCT LAB [address] [place] [address] Dejan Barajas.OLeonela [id number] Sodium [Moles/Vol] 139 mmol/L Normal 135-145 [facility] Comment on above: Order Comment: [facility] has implemented the eGFR calculation approach that does not have a coefficient for race that conforms to the NKF-ASN Task Force Recommendations. Performed By: #### P [id number] #### ONED FSED POCT LAB [address] [place] [address] Dejan Barajas.OLeonela [id number] Urea nitrogen [Mass/Vol] 8 mg/dL Normal 8-25 [facility] Comment on above: Order Comment: [facility] has implemented the eGFR calculation approach that does not have a coefficient for race that conforms to the NKF-ASN Task Force Recommendations. Performed By: #### P [id number] #### ONED FSED POCT LAB [address] [place] [address] Osiel Nelson, D.O. [id number] POC CBC AND DIFFERENTIALon 0 - BASOPHILS ABSOLUTE COUNT 0.04 K/mcL Normal 0.00-0.30 [facility] Comment on above: Performed By: #### L [id number] #### ONED FSED POCT LAB [address] [place] [address] Osiel Nelson, D.O. [id number] Basophils/100 WBC (Bld) 0.4 % Normal [facility] Comment on above: Performed By: #### L [id number] #### ONED FSED POCT LAB [address] [place] [address] Osiel Nelson, D.O. [id number] Eosinophils (Bld) [#/Vol] 0.10 10*3/uL Normal 0.00-0.50 [facility] Comment on above: Performed By: #### L [id number] #### ONED FSED POCT LAB [address] [place] [address] Osiel Nelson, D.O. [id number] Eosinophils/100 WBC (Bld) 1.1 % Normal [facility] Comment on above: Performed By: #### L [id number] #### ONED FSED POCT LAB [address] [place] [address] Osiel Nelson D.O. [id number] Erythrocyte distribution width (RBC) [Ratio] 13.3 % Normal 11.6-14.8 [facility] Comment on above: Performed By: #### L [id number] #### ONED FSED POCT LAB [address] [place] [address] Osiel Nelson D.O. [id number] Hematocrit (Bld) [Volume fraction] 31.5 % Low 36.0-46.0 [facility] Comment on above: Performed By: #### L [id number] #### ONED FSED POCT LAB [address] [place] [address] Osiel Nelson D.O. [id number] Hemoglobin (Bld) [Mass/Vol] 10.6 g/dL Low 12.0-16.0 [facility] Comment on above: Performed By: #### L [id number] #### ONED FSED POCT LAB [address] [place] [address] Osiel Nelson D.O. [id number] IG ABSOLUTE 0.04 K/mcL Normal 0.00-0.30 [facility] Comment on above: Performed By: #### L [id number] #### ONED FSED POCT LAB [address] [place] [address] Dejan Barajas.O. [id number] IG PERCENT 0.40 % Normal [facility] Comment on above: Result Comment: The IG parameter is the percentage of metamyelocytes, myelocytes and promyelocytes. An immature granulocyte count (IG) of 1% or more suggests the possibility of infection, an IG count of 3% is very likely related to an infection. Performed By: #### L [id number] #### ONED FSED POCT LAB [address] [place] [address] Osiel Nelson D.O. [id number] Lymphocytes (Bld) [#/Vol] 1.89 10*3/uL Normal 0.90-4.00 [facility] Comment on above: Performed By: #### L [id number] #### ONED FSED POCT LAB [address] [place] [address] Osiel Nelosn D.O. [id number] Lymphocytes/100 WBC (Bld) 19.9 % Normal [facility] Comment on above: Performed By: #### L [id number] #### ONED FSED POCT LAB [address] [place] [address] Osiel Nelson D.O. [id number] MCH (RBC) [Entitic mass] 29.3 pg Normal 26.0-34.0 [facility] Comment on above: Performed By: #### L [id number] #### ONED FSED POCT LAB [address] [place] [address] Dejan Barajas.O. [id number] MCV (RBC) [Entitic vol] 87.0 fL Normal 80.0-100.0 [facility] Comment on above: Performed By: #### L [id number] #### ONED FSED POCT LAB [address] [place] [address] Osiel Nelson D.O. [id number] MEAN CORPUSCULAR HEMOGLOBIN CONC 33.7 g/dL Normal 31.0-37.0 [facility] Comment on above: Performed By: #### L [id number] #### ONED FSED POCT LAB [address] [place] [address] Dejan Barajas.O. [id number] Monocytes (Bld) [#/Vol] 0.76 10*3/uL Normal 0.30-0.90 [facility] Comment on above: Performed By: #### L [id number] #### ONED FSED POCT LAB [address] [place] [address] Osiel Nelson D.O. [id number] Monocytes/100 WBC (Bld) 8.0 % Normal [facility] Comment on above: Performed By: #### L [id number] #### ONED FSED POCT LAB [address] [place] [address] Osiel Nelson D.O. [id number] NEUTROPHILS ABSOLUTE COUNT 6.65 K/mcL Normal 1.70-7.00 [facility] Comment on above: Performed By: #### L [id number] #### ONED FSED POCT LAB [address] [place] [address] Osiel Nelson D.O. [id number] Neutrophils/100 WBC (Bld) 70.2 % Normal [facility] Comment on above: Performed By: #### L [id number] #### ONED FSED POCT LAB [address] [place] [address] Dejan Barajas.OLeonela [id number] Platelet mean volume (Bld) [Entitic vol] 11.3 fL Normal 9.4-12.4 [facility] Comment on above: Performed By: #### L [id number] #### ONED FSED POCT LAB [address] [place] [address] Dejan Barajas.O. [id number] Platelets (Bld) [#/Vol] 294 10*3/uL Normal 150-400 [facility] Comment on above: Performed By: #### L [id number] #### ONED FSED POCT LAB [address] [place] [address] Dejan Barajas.O. [id number] RBC (Bld) [#/Vol] 3.62 10*6/uL Low 4.00-5.20 [facility] Comment on above: Performed By: #### L [id number] #### ONED FSED POCT LAB [address] [place] [address] Dejan Barajas.O. [id number] WBC (Bld) [#/Vol] 9.48 10*3/uL Normal 4.50-11.00 [facility] Comment on above: Performed By: #### L [id number] #### ONED FSED POCT LAB [address] [place] [address] Dejan Barajas.OLeonela [id number] POC D-DIMER Osmel 5 POC D-DIMER 797 ng/mL DDU High <350 [facility] Comment on above: Order Comment: A D-D [...] #### ONED FSED POCT LAB [address] [place], [place] [address] Osiel Nelson D.O. [id number] POC TROPONIN I Osmel 2024 POC TROPONIN I < Normal <0.05 [facility] Comment on above: Performed By: #### [id number] #### ONED FSED POCT LAB [address] [place], [place] [address] Osiel Nelson D.O. [id number] Laboratory - Chemistry and C hemistry - challengeOrdered By: Sarah Ramos on 12-12-2024 Glucose Ql (U) Negative [facility] Laboratory - UrinalysisOrder ed By: Sarah Ramos on 12-12-2024 Protein Ql (U) Negative [facility] City Maintenance Manager Office Visit Reporton 12-12-2024 City Maintenance Manager Office Visit Report [facility]'s [address], [address] [place] [address] OFFICE VISIT Date of Service: 12/12/24 MR#: [id number] Acct: [id number] Name: NAN MEYERS Rep #: [id number] : 2000 Provider: Dr. 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 Normal [facility] Chlamydia/GC VISHNU aptimaon CHLAMY,NUC ACID Negative Normal Negative [facility] Comment on above: Performed By: #### L 7000.1800 #### [facility] Laboratory [address] [place], [place], [id number] GC BY NUC ACID Negative Normal Negative [facility] Comment on above: Result Comment: Perf ormed at: =G - [facility] [address] [id number] Drop Forger Helper: Birdie Tobin MD, Phone: [phone] Performed By: #### L 7000.1800 #### [facility] [address] [place], [place], [address] Chlamydia trachomatis rRNA d etection by probe and target amplification methodOrdered By: Glendy Arvizu on 11-14-2024 C. trachomatis rRNA VISHNU+probe Ql (Unsp spec) Negative Negative [facility] Laboratory - Chemistry and C hemistry - challengeOrdered By: Glendy Arvizu on 11-14-2024 Bilirubin Ql (U) Negative [facility] Glucose Ql (U) Negative [facility] Ketones Ql (U) Negative [facility] pH (U) 7 [pH] [facility] Specific gravity (U) [Rel density] 1.010 [facility] Urobilinogen (U) [Mass/Vol] Negative [facility] Laboratory - Hematology and Cell countsOrdered By: Glendy Arvizu on 11-14-2024 Hemoglobin Ql (U) Negative [facility] Laboratory - Specimen inform ationOrdered By: Glendy Arvizu on 11-14-2024 Clarity (U) Clear [facility] Color (U) Yellow [facility] Laboratory - UrinalysisOrder ed By: Glendy Arvizu on 11-14-2024 Nitrite Ql (U) Negative [facility] Protein Ql (U) Trace [facility] Neisseria gonorrhoeae nuclei c acid detection by amplified probe techniqueOrdered By: Glendy Arvizu on 11-14-2024 N. gonorrhoeae DNA VISHNU+probe Ql (Unsp spec) Negative Negative [facility] Comment on above: Performed at: =[address] [id number] Director: Birdie Tobin MD, Phone: [phone] No Panel InformationOrdered By: Glendy Arvizu on 11-14-2024 Urine Leukocytes Negatve [facility] Urine Non-Hemolyzed Blood [facility] City Maintenance Manager Office Visit Reporton 11-14-2024 City Maintenance Manager Office Visit Report [facility]'[address], [address] [place] [address] OFFICE VISIT Date of Service: 11/14/24 MR#: [id number] Acct: [id number] Name: CLAUDYNAN RIVERAN Rep #: [id number] : 2000 Provider: NURYS Swenson ams Age/Sex: 24/F Location: [facility] [place] Status: Signed Intake Vital Signs 09/16/24 11:33 11/02/24 09:08 11/14/24 11:40 Height 5 ft 5 ft 5 ft Weight: 143 lb 8 oz BMI 28.0 BP 128/71 H Intake Visit Reasons: 17wk ob Chief Complaint: 17wk OB Filler Shredding Machine 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 Normal [facility] Absolute lymphocyte countOrd ered By: Mike Dill on 11-02-2024 Lymphocytes Auto (Unsp spec) [#/Vol] 2.52 10*3/uL 0.83-4.51 [facility] Absolute neutrophil countOrd ered By: Mike Dill on 11-02-2024 Neutrophils (Bld) [#/Vol] 5.1 10*3/uL 2.0-7.7 [facility] Anion gap in Serum or Plasma Ordered By: Mike Dill on 11-02-2024 Anion gap [Moles/Vol] 12 mmol/L 5-15 [facility] Automated lymphocyte count a s percentage of total leukocytesOrdered By: Mike Dill on 11-02-2024 Lymphocytes/100 WBC Auto (Unsp spec) 29.1 % 19-41 [facility] BUN/creatinine ratioOrdered By: Mike Dill on 11-02-2024 Urea nitrogen/Creatinine [Mass ratio] 12.9 mg/mg 10- [facility] Basic Metabolic Profile (BMP )on 11-02-2024 BUN/CRE 12.9 RATIO Normal - [facility] Comment on above: Performed By: #### M 100.3200, L7000.1800, #### [facility] [address] [place], [address] Calcium [Mass/Vol] 8.9 mg/dL Normal 7.6-11.0 [facility] Comment on above: Performed By: #### M 100.3200, L7000.1800, #### [facility] [address] [place], [address] Chloride [Moles/Vol] 102 mmol/L Normal 98-108 [facility] Comment on above: Performed By: #### M 100.3200, L7000.1800, #### [facility] [address] [place], [address] CO2 [Moles/Vol] 20.7 mmol/L Low 21.0-32.0 [facility] Comment on above: Performed By: #### M 100.3200, L7000.1800, #### [facility] [address] [place], [address] Creatinine [Mass/Vol] 0.58 mg/dL Low 0.70-1.20 [facility] Comment on above: Performed By: #### M 100.3200, L7000.1800, #### [facility] [address] [place], [address] ECRCL 128.10 ml/min Normal 50-250 [facility] Comment on above: Performed By: #### M 100.3200, L7000.1800, #### [facility] [address] [place], [address] GAP 12 Normal 5-15 [facility] Comment on above: Performed By: #### M 100.3200, L7000.1800, #### [facility] [address] [place], [address] GFR/1.73 sq M.predicted among non-blacks MDRD (S/P/Bld) [Vol rate/Area] 131 mL/min/{1.73_m2} Normal >60 [facility] Comment on above: Result Comment: mL/m in/1.73m2 CKD-EPI Creatinine Equation (2020) Performed By: #### M 100.3200, L7000.1800, #### [facility] [address] [place], [address] Glucose [Mass/Vol] 87 mg/dL Normal 70-99 [facility] Comment on above: Performed By: #### M 100.3200, L7000.1800, #### [facility] [address] [place], [address] Potassium [Moles/Vol] 3.8 mmol/L Normal 3.3-5.1 [facility] Comment on above: Performed By: #### M 100.3200, L7000.1800, #### [facility] [address] [place], [address] Sodium [Moles/Vol] 135 mmol/L Normal 133-145 [facility] Comment on above: Performed By: #### M 100.3200, L7000.1800, #### [facility] [address] [place], [address] Urea nitrogen [Mass/Vol] 7 mg/dL Normal 4-19 [facility] Comment on above: Performed By: #### M 100.3200, L7000.1800, #### [facility] [address] [place], [address] Basophil percentageOrdered B y: Mike Dill on 11-02-2024 Basophils/100 WBC (Bld) 0.6 % 0-1 [facility] Bilirubin Test strip Ql (U)O rdered By: Mike Dill on 11-02-2024 Bilirubin Ql (U) Negative Negative [facility] CBC W/Diff, Automatedon 10-07 Absolute Lymph 2.52 X10 3/uL Normal 0.83-4.51 [facility] Comment on above: Performed By: #### M 100.3200, L7000.1800, #### [facility] [address] [place], [address] Absolute Neut 5.1 X10 3/uL Normal 2.0-7.7 [facility] Comment on above: Performed By: #### M 100.3200, L7000.1800, #### [facility] [address] [place], [address] Basophils/100 WBC (Bld) 0.6 % Normal 0-1 [facility] Comment on above: Performed By: #### M 100.3200, L7000.1800, #### [facility] [address] [place], [address] Eosinophils/100 WBC (Bld) 1.4 % Normal 0-5 [facility] Comment on above: Performed By: #### M 100.3200, L7000.1800, #### [facility] [address] [place], [address] Erythrocyte distribution width (RBC) [Ratio] 14.2 % Normal 11.6-14.6 [facility] Comment on above: Performed By: #### M 100.3200, L7000.1800, #### [facility] [address] [place], [address] Hematocrit (Bld) [Volume fraction] 34.9 % Low 37-47 [facility] Comment on above: Performed By: #### M 100.3200, L7000.1800, #### [facility] [address] [place], [address] Hemoglobin (Bld) [Mass/Vol] 12.2 g/dL Normal 12.0-15.0 [facility] Comment on above: Performed By: #### M 100.3200, L7000.1800, #### [facility] [address] [place], [address] IG% 0.200 Normal 0.0-0.9 [facility] Comment on above: Result Comment: IG% - Immature Granulocytes (promyelocytes, myelocytes and metamyelocytes) > 1% indicates that a LEFT SHIFT is Present. Performed By: #### M 100.3200, L7000.1800, #### [facility] [address] [place], [address] Lymphocytes/100 WBC (Bld) 29.1 % Normal 19-41 [facility] Comment on above: Performed By: #### M 100.3200, L7000.1800, #### [facility] [address] [place], [address] MCH (RBC) [Entitic mass] 30.4 pg Normal 27.0-32.0 [facility] Comment on above: Performed By: #### M 100.3200, L7000.1800, #### [facility] [address] [place], [address] MCHC (RBC) [Mass/Vol] 35.0 g/dL Normal 32-36 [facility] Comment on above: Performed By: #### M 100.3200, L7000.1800, #### [facility] [address] [place], [address] MCV (RBC) [Entitic vol] 87.0 fL Normal 81-99 [facility] Comment on above: Performed By: #### M 100.3200, L7000.1800, #### [facility] [address] [place], [address] Monocytes/100 WBC (Bld) 9.6 % Normal 0-10 [facility] Comment on above: Performed By: #### M 100.3200, L7000.1800, #### [facility] [address] [place], [address] Neutrophils/100 WBC (Bld) 59.1 % Normal 47-70 [facility] Comment on above: Performed By: #### M 100.3200, L7000.1800, #### [facility] [address] [place], [address] Nucleated RBC (Bld) [#/Vol] 0 10*3/uL Normal 0-5 [facility] Comment on above: Performed By: #### M 100.3200, L7000.1800, #### [facility] [address] [place], [address] Platelet mean volume (Bld) [Entitic vol] 11.7 fL Normal 6.2-12.0 [facility] Comment on above: Performed By: #### M 100.3200, L7000.1800, #### [facility] [address] [place], [address] Platelets (Bld) [#/Vol] 278 10*3/uL Normal 150-450 [facility] Comment on above: Performed By: #### M 100.3200, L7000.1800, #### [facility] [address] [place], [address] RBC (Bld) [#/Vol] 4.01 10*6/uL Low 4.2-5.4 [facility] Comment on above: Performed By: #### M 100.3200, L7000.1800, M100.1999 #### [facility] [address] [place], [address] RDW SD 45.3 fl High 35.1-43.9 [facility] Comment on above: Performed By: #### M 100.3200, L7000.1800, M100.1999 #### [facility] [address] [place], [address] WBC (Bld) [#/Vol] 8.7 10*3/uL Normal 4.4-11.0 [facility] Comment on above: Performed By: #### M 100.3200, L7000.1800, M1 #### [facility] [address] [place] [place], [address] Carbon dioxide, total [Moles /volume] in Central venous bloodOrdered By: Mike Dill on 11-02-2024 CO2 [Moles/Vol] 20.7 mmol/L Low 21.0-32.0 [facility] Chloride assayOrdered By: Valente Dill on 11-02-2024 Chloride [Moles/Vol] 102 mmol/L 98-108 [facility] Emergency Department Summary on 11-02-2024 Emergency Department Summary [facility] Medical Records Department [address] [place] [address] Emergency Department Summary 11/02/24 MR#: [id number] Acct: [id number] Name: NAN MEYERS Rep #: [id number] : 2000 24 From: Mike Dill DO PCP: MARISA WILLIAM 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 Patient states she was also recently diagnosed with chlamydia. Patient was given Zithromax to take at home. Patient states she was able to keep 1 pill down but vomited the second pill. Patient was unable to complete her treatment. [facility] Medical History ADHD Anxiety , ectopic, [...] baby current occupational status: employed current occupation: [employer] current occupational exposures/hazards: No pets and animals: [...] physical activity do you participate in: none christopher/congregational: None seatbelt use: always do you feel safe at home: Yes additional social history: BF: Fausto - [employer] ROS ROS ED Constitutional Constitutional ED: Denies [...] (more content not included)... Normal [facility] Eosinophil percentageOrdered By: Mike Dill on 11-02-2024 Eosinophils/100 WBC (Bld) 1.4 % 0-5 [facility] Erythrocyte distribution wid th ratioOrdered By: Mike Dill on 11-02-2024 Erythrocyte distribution width (RBC) [Ratio] 14.2 % 11.6-14.6 [facility] Erythrocyte distribution wid th standard deviationOrdered By: Mike Dill on 11-02-2024 Erythrocyte distribution width (RBC) [Ratio] 45.3 fl High 35.1-43.9 [facility] Glomerular filtration rate ( GFR) estimation/1.73 sq m using serum, plasma, or whole bOrdered By: Mike Dill on 11-02-2024 GFR/1.73 sq M.predicted among non-blacks MDRD (S/P/Bld) [Vol rate/Area] 131 mL/min/{1.73_m2} >60 [facility] Comment on above: mL/min/1.73m2 CKD-EP I Creatinine Equation (2020) Hematocrit Auto (Bld) [Volum e fraction]Ordered By: Mike Dill on 11-02-2024 Hematocrit (Bld) [Volume fraction] 34.9 % Low 37-47 [facility] Hemoglobin measurementOrdere d By: Mike Dill on 11-02-2024 Hemoglobin (Bld) [Mass/Vol] 12.2 g/dL 12.0-15.0 [facility] Immature granulocytes/100 WB C Auto (Bld)Ordered By: Mike Dill on 11-02-2024 Immature granulocytes/100 WBC (Bld) 0.200 % 0.0-0.9 [facility] Comment on above: IG% - Immature Granu locytes (promyelocytes, myelocytes and metamyelocytes) > 1% indicates that a LEFT SHIFT is Present. Ketones Test strip Ql (U)Ord ered By: Mike Dill on 11-02-2024 Ketones Ql (U) 5 mg/dl High Negative [facility] MCV (mean corpuscular volume ) determinationOrdered By: Mike Dill on 11-02-2024 MCV (RBC) [Entitic vol] 87.0 fL 81-99 [facility] Mean corpuscular hemoglobin (MCH) determinationOrdered By: Mike Dill on 11-02-2024 MCH (RBC) [Entitic mass] 30.4 pg 27.0-32.0 [facility] Mean corpuscular hemoglobin concentration (MCHC) determinationOrdered By: iMke Dill on 11-02-2024 MCHC (RBC) [Mass/Vol] 35.0 g/dL 32-36 [facility] Mean platelet volume determi nationOrdered By: Mike Dill on 11-02-2024 Platelet mean volume (Bld) [Entitic vol] 11.7 fL 6.2-12.0 [facility] Microscopic analysis of urin e for red blood cells (RBC)Ordered By: Mike Dill on 11-02-2024 Microscopic analysis of urine for red blood cells (RBC) > 100 SEEN /hpf 0-5 [facility] Monocyte percentageOrdered B y: Mike Dill on 11-02-2024 Monocytes/100 WBC (Bld) 9.6 % 0-10 [facility] Mucus LM Ql (Urine sed)Order ed By: Mike Dill on 11-02-2024 Mucus Ql (Urine sed) 0 SEEN /hpf [facility] Neutrophil percentageOrdered By: Mike Dill on 11-02-2024 Neutrophils/100 WBC (Bld) 59.1 % 47-70 [facility] Nitrite Test strip Ql (U)Ord ered By: Mike Dill on 11-02-2024 Nitrite Ql (U) Negative Negative [facility] Nucleated red blood cell per centageOrdered By: Mike Dill on 11-02-2024 Nucleated RBC/100 WBC (Bld) [Ratio] 0 % 0-5 [facility] OB Limited With Biometricson 11-02-2024 OB Limited With Biometrics [facility] Imaging Services [address] [place], [place] [id number] OB Limited With Biometrics MR#: [id number] Acct: [id number] Name: NAN MEYERS Rep #: [id number] : 2000 F 24 From: Negro Schwarz DO PCP: MARISA WILLIAM DIRECTOR OF LABORATORY OPERATIONS-C Status: REG ER Study: OB Limited With Biometrics Date of Exam: 11/02 Exam# [id number] Ordering Dr: Mike Dill DO PROCEDURE: OB [...] above diagnosis is low. Maternal- medicine in [facility] consult may be considered Reading [facility] CC: MARISA JEONG-sIadora; Dr. Mike Dill, DO Outsole Cutter Machine: Signed Normal [facility] Platelet countOrdered By: Valente Dill on 11-02-2024 Platelets (Bld) [#/Vol] 278 10*3/uL 150-450 [facility] Potassium measurement (mass/ volume)Ordered By: Mike Dill on 11-02-2024 Potassium (Unsp spec) [Mass/Vol] 3.8 mmol/L 3.3-5.1 [facility] Protein Test strip Ql (U)Ord ered By: Mike Dill on 11-02-2024 Protein Ql (U) 500 mg/dl High Negative [facility] RBC Auto (Bld) [#/Vol]Ordere d By: Mike Dill on 11-02-2024 RBC (Bld) [#/Vol] 4.01 10*6/uL Low 4.2-5.4 [facility] Serum creatinine measurement (mass/volume)Ordered By: Mike Dill on 11-02-2024 Creatinine [Mass/Vol] 0.58 mg/dL Low 0.70-1.20 [facility] Serum glucose measurement (m ass/volume)Ordered By: Mike Dill on 11-02-2024 Glucose [Mass/Vol] 87 mg/dL 70-99 [facility] Serum human chorionic gonado tropin detection for pregnancyOrdered By: Mike Dill on 11-02-2024 HCG ( test) [place]l [address] mIU/mL High <9 [facility] Comment on above: Gestational Age0.2-1 Week: 5-50 mIU/mL1-2 Weeks: 50-500 mIU/mL2-3 Weeks: 100-5000 mIU/mL3-4 Weeks: 500-10,000 mIU/mL4-5 Weeks:1000-50,000 mIU/mL5-6 Weeks: 10,000-100,000 mIU/mL6-8 Weeks: 15,000-200,000 mIU/mL2-3 Months:10,000-100,000 mIU/mL Serum or plasma calcium bryan urement (mass/volume)Ordered By: Mike Dill on 11-02-2024 Calcium [Mass/Vol] 8.9 mg/dL 7.6-11.0 [facility] Serum or plasma urea nitroge n measurement (mass/volume)Ordered By: Mike Dill on 11-02-2024 Urea nitrogen [Mass/Vol] 7 mg/dL 4-19 [facility] Sodium levelOrdered By: Mike Dill on 11-02-2024 Sodium [Moles/Vol] 135 mmol/L 133-145 [facility] Squamous epithelial cells de tection in urine sediment by light microscopyOrdered By: Mike Dill on 11-02-2024 Epithelial cells.squamous LM Ql (Urine sed) 0-5 SEEN /hpf 5-10 [facility] Urinalysis, Completeon 11-02 EPI,SQUAMOUS 0-5 SEEN Normal 5-10 [facility] Comment on above: Order Comment: COLOR OF URINE MAY AFFECT DIPSTICK RESULTS. CLEAN CATCH Performed By: #### L 400.0001 #### [facility] Laboratory [address] [place], [address] RBC > 100 SEEN Normal 0-5 [facility] Comment on above: Order Comment: COLOR OF URINE MAY AFFECT DIPSTICK RESULTS. CLEAN CATCH Performed By: #### L 400.0001 #### [facility] [address] [place], [address] WBC 0-5 SEEN Normal 0-5 [facility] Comment on above: Order Comment: COLOR OF URINE MAY AFFECT DIPSTICK RESULTS. CLEAN CATCH Performed By: #### L 400.0001 #### [facility] [address] [place], [address] BACTERIA 0 SEEN Normal None Seen [facility] Comment on above: Order Comment: COLOR OF URINE MAY AFFECT DIPSTICK RESULTS. CLEAN CATCH Performed By: #### L 400.0001 #### [facility] [address] [place], [address] Mucus Ql (Urine sed) 0 SEEN Normal [facility] Comment on above: Order Comment: COLOR OF URINE MAY AFFECT DIPSTICK RESULTS. CLEAN CATCH Performed By: #### L 400.0001 #### [facility] [address] [place], [address] Urine clarityOrdered By: Maine Dill on 11-02-2024 Clarity (U) Turbid Clear [facility] Urine color determinationOrd ered By: Mike Dill on 11-02-2024 Color (U) Red Yellow [facility] Urine glucose detectionOrder ed By: Mike Dill on 11-02-2024 Glucose Ql (U) Normal mg/dl Normal [facility] Urine leukocyte esterase det ection by dipstickOrdered By: Mike Dill on 11-02-2024 Leukocyte esterase Test strip Ql (U) 25 /ul High Negative [facility] Urine pHOrdered By: Mike benavides on 11-02-2024 pH (U) 7.0 [pH] 5.0 - 8.0 [facility] Urine sediment bacteria coun t by microscopy (number/high power field)Ordered By: Mike Dill on 11-02-2024 Bacteria LM.HPF (Urine sed) [#/Area] 0 /[HPF] None Seen [facility] Urine specific gravity measu rementOrdered By: Mike Dill on 11-02-2024 Specific gravity (U) [Rel density] 1.010 1.002-1.030 [facility] Urine urobilinogen measureme ntOrdered By: Mike Dill on 11-02-2024 Urobilinogen Ql (U) Normal mg/dl Normal [facility] White blood cell (WBC) count Ordered By: Mike Dill on 11-02-2024 WBC (Bld) [#/Vol] 8.7 10*3/uL 4.4-11.0 [facility] White blood cell countOrdere d By: Mike Dill on 11-02-2024 White blood cell count 0-5 SEEN /hpf 0-5 [facility] hCG Titer Quant., Serumon HCG QUANT. 12328 mIU/mL High <9 non-preg [facility] Comment on above: Result Comment: Gest ational Age 0.2-1 Week: 5-50 mIU/mL 1-2 Weeks: 50-500 mIU/mL 2-3 Weeks: 100-5000 mIU/mL 3-4 Weeks: 500-10,000 mIU/mL 4-5 Weeks:1000-50,000 mIU/mL 5-6 Weeks: 10,000-100,000 mIU/mL 6-8 Weeks: 15,000-200,000 mIU/mL 2-3 Months:10,000-100,000 mIU/mL Performed By: #### M 100.3200, L7000.1800, M100.2000 #### [facility] [address] [place], [place], [id number] Laboratory - Chemistry and C hemistry - challengeOrdered By: Negrita Vital on 10-15-2024 Glucose Ql (U) Negative [facility] - UrinalysisOrder ed By: Negrita Vital on 10-15-2024 Protein Ql (U) Negative [facility] City Maintenance Manager Office Visit Reporton 10-15-2024 City Maintenance Manager Office Visit Report [facility] [address], [address] [place] [address] OFFICE VISIT Date of Service: 10/15/24 MR#: [id number] Acct: [id number] Name: NAN MEYERS Rep #: [id number] : 2000 Provider: DEBORAH grey Age/Sex: 24/F Location[place] [facility] [place] Status: Signed Intake Vital Signs 08/29/23 14:31 09/16/24 11:33 10/15/24 08:32 Height 5 ft 5 ft 5 ft Weight: 143 lb 6 oz BMI 28.0 BP 116/70 Intake Visit Reasons: 13wk ob 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 Normal [facility] Absolute lymphocyte countOrd ered By: Nereida Chou on 10-02-2024 Lymphocytes Auto (Unsp spec) [#/Vol] 1.89 10*3/uL 0.83-4.51 [facility] Absolute neutrophil countOrd ered By: Nereida Chou on 10-02-2024 Neutrophils (Bld) [#/Vol] 6.2 10*3/uL 2.0-7.7 [facility] Automated lymphocyte count a s percentage of total leukocytesOrdered By: Nereida Chou on 10-02-2024 Lymphocytes/100 WBC Auto (Unsp spec) 21.4 % 19-41 [facility] Basophil percentageOrdered B y: Nereida Chou on 10-02-2024 Basophils/100 WBC (Bld) 0.3 % 0-1 [facility] CBC W/Diff, Automatedon 09-06 Absolute Lymph 1.89 X10 3/uL Normal 0.83-4.51 [facility] Comment on above: Performed By: #### L 509.4006, BTS, L3890.6006, L100.0100, L3890.6102, L3890.6301, L509.8002 #### [facility] Laboratory [address] [place], [address] Absolute Neut 6.2 X10 3/uL Normal 2.0-7.7 [facility] Comment on above: Performed By: #### L 509.4006, BTS, L3890.6006, L100.0100, L3890.6102, L3890.6301, L509.8002 #### [facility] [address] [place], [address] Basophils/100 WBC (Bld) 0.3 % Normal 0-1 [facility] Comment on above: Performed By: #### L 509.4006, BTS, L3890.6006, L100.0100, L3890.6102, L3890.6301, L509.8002 #### [facility] [address] [place], [address] Eosinophils/100 WBC (Bld) 0.8 % Normal 0-5 [facility] Comment on above: Performed By: #### L 509.4006, BTS, L3890.6006, L100.0100, L3890.6102, L3890.6301, L509.8002 #### [facility] [address] [place], [address] Erythrocyte distribution width (RBC) [Ratio] 15.0 % High 11.6-14.6 [facility] Comment on above: Performed By: #### L 509.4006, BTS, L3890.6006, L100.0100, L3890.6102, L3890.6301, L509.8002 #### [facility] [address] [place], [address] Hematocrit (Bld) [Volume fraction] 38.5 % Normal 37-47 [facility] Comment on above: Performed By: #### L 509.4006, BTS, L3890.6006, L100.0100, L3890.6102, L3890.6301, L509.8002 #### [facility] [address] [place], [address] Hemoglobin (Bld) [Mass/Vol] 12.9 g/dL Normal 12.0-15.0 [facility] Comment on above: Performed By: #### L 509.4006, BTS, L3890.6006, L100.0100, L3890.6102, L3890.6301, L509.8002 #### [facility] [address] [place], [address] IG% 0.200 Normal 0.0-0.9 [facility] Comment on above: Result Comment: IG% - Immature Granulocytes (promyelocytes, myelocytes and metamyelocytes) > 1% indicates that a LEFT SHIFT is Present. Performed By: #### L 509.4006, BTS, L3890.6006, L100.0100, L3890.6102, L3890.6301, L509.8002 #### [facility] [address] [place], [address] Lymphocytes/100 WBC (Bld) 21.4 % Normal 19-41 [facility] Comment on above: Performed By: #### L 509.4006, BTS, L3890.6006, L100.0100, L3890.6102, L3890.6301, L509.8002 #### [facility] [address] [place], [address] MCH (RBC) [Entitic mass] 29.3 pg Normal 27.0-32.0 [facility] Comment on above: Performed By: #### L 509.4006, BTS, L3890.6006, L100.0100, L3890.6102, L3890.6301, L509.8002 #### [facility] Laboratory [address] [place], [address] MCHC (RBC) [Mass/Vol] 33.5 g/dL Normal 32-36 [facility] Comment on above: Performed By: #### L 509.4006, BTS, L3890.6006, L100.0100, L3890.6102, L3890.6301, L509.8002 #### [facility] [address] [place], [address] MCV (RBC) [Entitic vol] 87.5 fL Normal 81-99 [facility] Comment on above: Performed By: #### L 509.4006, BTS, L3890.6006, L100.0100, L3890.6102, L3890.6301, L509.8002 #### [facility] [address] [place], [address] Monocytes/100 WBC (Bld) 7.3 % Normal 0-10 [facility] Comment on above: Performed By: #### L 509.4006, BTS, L3890.6006, L100.0100, L3890.6102, L3890.6301, L509.8002 #### [facility] [address] [place], [address] Neutrophils/100 WBC (Bld) 70.0 % Normal 47-70 [facility] Comment on above: Performed By: #### L 509.4006, BTS, L3890.6006, L100.0100, L3890.6102, L3890.6301, L509.8002 #### [facility] Laboratory [address] [place], [address] Nucleated RBC (Bld) [#/Vol] 0 10*3/uL Normal 0-5 [facility] Comment on above: Performed By: #### L 509.4006, BTS, L3890.6006, L100.0100, L3890.6102, L3890.6301, L509.8002 #### [facility] [address] [place], [address] Platelet mean volume (Bld) [Entitic vol] 12.0 fL Normal 6.2-12.0 [facility] Comment on above: Performed By: #### L 509.4006, BTS, L3890.6006, L100.0100, L3890.6102, L3890.6301, L509.8002 #### [facility] [address] [place], [address] Platelets (Bld) [#/Vol] 339 10*3/uL Normal 150-450 [facility] Comment on above: Performed By: #### L 509.4006, BTS, L3890.6006, L100.0100, L3890.6102, L3890.6301, L509.8002 #### [facility] Laboratory [address] [place], [address] RBC (Bld) [#/Vol] 4.40 10*6/uL Normal 4.2-5.4 [facility] Comment on above: Performed By: #### L 509.4006, BTS, L3890.6006, L100.0100, L3890.6102, L3890.6301, L509.8002 #### [facility] Laboratory [address] [place], [address] RDW SD 48.4 fl High 35.1-43.9 [facility] Comment on above: Performed By: #### L 509.4006, BTS, L3890.6006, L100.0100, L3890.6102, L3890.6301, L509.8002 #### [facility] Laboratory [address] [place], [address] WBC (Bld) [#/Vol] 8.9 10*3/uL Normal 4.4-11.0 [facility] Comment on above: Performed By: #### L 509.4006, BTS, L3890.6006, L100.0100, L3890.6102, L3890.6301, L509.8002 #### [facility] [address] [place], [address] Eosinophil percentageOrdered By: Nereida Chou on 10-02-2024 Eosinophils/100 WBC (Bld) 0.8 % 0-5 [facility] Erythrocyte distribution wid th ratioOrdered By: Nereida Chou on 10-02-2024 Erythrocyte distribution width (RBC) [Ratio] 15.0 % High 11.6-14.6 [facility] Erythrocyte distribution wid th standard deviationOrdered By: Nereida Chou on 10-02-2024 Erythrocyte distribution width (RBC) [Ratio] 48.4 fl High 35.1-43.9 [facility] HIVon 10-02-2024 HIV Non-Reactive Normal Nonreactive [facility] Comment on above: Result Comment: Non- Reactive Reactive Repeatedly reactive samples must be confirmed according to CDC recommended confirmatory algorithms. The subresults for either HIVAG or AHIV can be used as an aid in the selection of the confirmation algorithm for reactive samples. Send out specimens with Reactive results to [facility] for confirmation. Order the HIV antibody detection and differentiation: lc#[id number] Performed By: #### M 100.3200, L7000.1800, #### [facility] Laboratory [address] [place], [place], [address] Hematocrit Auto (Bld) [Volum e fraction]Ordered By: Nereida Espinosapacheco on 10-02-2024 Hematocrit (Bld) [Volume fraction] 38.5 % 37-47 [facility] Hemoglobin measurementOrdere d By: Nereida Chou on 10-02-2024 Hemoglobin (Bld) [Mass/Vol] 12.9 g/dL 12.0-15.0 [facility] Hepatitis C Antibodyon 10-02 Hepatitis C Ab Non-Reactive Normal Nonreactive [facility] Comment on above: Result Comment: Reac tive: Presumptive evidence of antibodies to HCV. Follow CDC recommendations for supplemental testing. Non-Reactive: Antibodies to HCV were not detected; does not exclude the possibility of exposure to HCV Reactive Results are presumptive evidence of antibodies to HCV. Follow CDC recommendations for supplemental testing. Order confirmation testing: HCV Quant by PCR testing - HCVPCR #[id number] Non Reactive: < 0.8 Equivocal: >/= 0.8 to < 1.0 Reactive: >/= 1.0 The CDC requires that a reactive/equivocal HCV antibody result be sent out for confirmation. HCV Quant by PCR testing. Performed By: #### M 100.3200, L7000.1800, #### [facility] [address] [place], [address] Immature granulocytes/100 WB C Auto (Bld)Ordered By: Nereida Chou on 10-02-2024 Immature granulocytes/100 WBC (Bld) 0.200 % 0.0-0.9 [facility] Comment on above: IG% - Immature Granu locytes (promyelocytes, myelocytes and metamyelocytes) > 1% indicates that a LEFT SHIFT is Present. L3890.6102on 10-02-2024 HEP B Surf Ag Non-Reactive Normal Nonreactive [facility] Comment on above: Result Comment: Reac tive: Presumptive evidence of HBV. Repeatedly reactive samples must be confirmed using a neutralization test ([employer] HBsAg Confirmatory Test) Non-Reactive: HBsAg not detected; does not exclude the possibility of exposure to HBV Performed By: #### M 100.3200, L7000.1800, M100.2000 #### [facility] [address] [facility] [place], [place], [address] L509.4006on 10-02-2024 Rubella IgG REAC Normal Nonreactive [facility] Comment on above: Result Comment: Anti body Result: Interpretation Non-Reactive: Non-Immune Reactive: Immune The following results were obtained with the [employer] Rubella IgG assay. Results from assays of other manufacturers cannot be used interchangeably. Performed By: #### L 509.4006, BTS, L3890.6006, L100.0100, L3890.6102, L3890.6301, L509.8002 #### [facility] [address] [facility] [place], [place], [address] Laboratory - Microbiology an d Antimicrobial susceptibilityOrdered By: Nereida Chou on 10-02-2024 HBV surface Ag Ql (S) Non-Reactive Nonreactive [facility] Comment on above: Reactive: Presumptiv e evidence of HBV. Repeatedly reactive samples must be confirmed using a neutralization test ([employer] HBsAg Confirmatory Test)Non-Reactive: HBsAg not detected; does not exclude the possibility of exposure to HBV MCV (mean corpuscular volume ) determinationOrdered By: Nereida Chou on 10-02-2024 MCV (RBC) [Entitic vol] 87.5 fL 81-99 [facility] Mean corpuscular hemoglobin (MCH) determinationOrdered By: Nereida Chou on 10-02-2024 MCH (RBC) [Entitic mass] 29.3 pg 27.0-32.0 [facility] Mean corpuscular hemoglobin concentration (MCHC) determinationOrdered By: Nereida Chou on 10-02-2024 MCHC (RBC) [Mass/Vol] 33.5 g/dL 32-36 [facility] Mean platelet volume determi nationOrdered By: Nereida Chou on 10-02-2024 Platelet mean volume (Bld) [Entitic vol] 12.0 fL 6.2-12.0 [facility] Monocyte percentageOrdered B y: Nereida Chou on 10-02-2024 Monocytes/100 WBC (Bld) 7.3 % 0-10 [facility] NATERAon 10-02-2024 NATURA SEE SCANNED REPORT Normal [facility] Comment on above: Performed By: #### M 100.3200, L7000.1800, M100.2000 #### [facility] [address] [facility], [address] Neutrophil percentageOrdered By: Nereida Chou on 10-02-2024 Neutrophils/100 WBC (Bld) 70.0 % 47-70 [facility] No Panel InformationOrdered By: Nereida Chou on 10-02-2024 HIV (1&2) Antibody Non-Reactive Nonreactive [facility] Comment on above: Non-ReactiveReactive Repeatedly reactive samples must be confirmed according to CDC recommended confirmatory algorithms. The subresults for either HIVAG or AHIV can be used as an aid in the selection of the confirmation algorithm for reactive samples.Send out specimens with Reactive results to [facility] for confirmation.Order the HIV antibody detection and differentiation: lc#[id number] Nucleated red blood cell per centageOrdered By: Nereida Chou on 10-02-2024 Nucleated RBC/100 WBC (Bld) [Ratio] 0 % 0-5 [facility] Platelet countOrdered By: Andrei Chou on 10-02-2024 Platelets (Bld) [#/Vol] 339 10*3/uL 150-450 [facility] RBC Auto (Bld) [#/Vol]Ordere d By: Nereidadeondre Pugagreg on 10-02-2024 RBC (Bld) [#/Vol] 4.40 10*6/uL 4.2-5.4 [facility] Syphilis Antibodieson 2024 Syphilis Abs Non-Reactive Normal Nonreactive [facility] Comment on above: Performed By: #### M 100.3200, L7000.1800, #### [facility] Laboratory [address] [place], [address] Type AND Screenon 10-02-2024 Ab SCREEN GEL Negative Normal [facility] Comment on above: Order Comment: PN Performed By: #### L 509.4006, BTS, L3890.6006, L100.0100, L3890.6102, L3890.6301, L509.8002 #### [facility] [address], [address] White blood cell (WBC) count Ordered By: Nereida Chou on 10-02-2024 WBC (Bld) [#/Vol] 8.9 10*3/uL 4.4-11.0 [facility] Chlamydia/GC VISHNU aptimaon CHLAMY,NUC ACID Positive Abnormal Negative [facility] Comment on above: Performed By: #### M 100.3200, L7000.1800, #### [facility] [address] [place], [address] GC BY NUC ACID Negative Normal Negative [facility] Comment on above: Result Comment: Perf ormed at: =G - [facility] [place] [id number] Drop Forger Helper: Birdie Tobin MD, Phone: [phone] Performed By: #### M 100.3200, L7000.1800, #### [facility] [address] [place], [address] PAP I-G w/rfx hrHPV-Aptimaon 09-19-2024 ADEQ Comment Normal . [facility] Comment on above: Order Comment: Speci men Comment: [id number] Comment: No. of containers..01 ThinPrep Vial Result Comment: Sati sfactory for evaluation. No endocervical component is identified. An endocervical component is not commonly seen in the patient. Performed By: #### M 100.3200, L7000.1800, #### [facility] [address] [place], [place], [address] COMM . Normal . [facility] Comment on above: Order Comment: Speci men Comment: [id number] Comment: No. of containers..01 ThinPrep Vial Performed By: #### M 100.3200, L7000.1800, #### [facility] [address] [place], [place], [address] COMMENT Comment Normal . [facility] Comment on above: Order Comment: Speci men Comment: [id number] Comment: No. of containers..01 ThinPrep Vial Result Comment: This liquid based ThinPrep(R) pap test was screened with the use of an image guided system. Performed By: #### M 100.3200, L7000.1800, #### [facility] [address] [place], [place], [address] DIAG Comment Normal . [facility] Comment on above: Order Comment: Speci men Comment: [id number] Comment: No. of containers..01 ThinPrep Vial Result Comment: NEGA TIVE FOR INTRAEPITHELIAL LESION OR MALIGNANCY. Performed By: #### M 100.3200,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 rate 82 /min Debbi Praisler-Wood PRESS SMITH HELPER.TABLET TECHNICIAN Work Phone: [facility] 06-18-2024 11:46-0500 Respiratory rate 18 /min Debbi Praisler-Wood PRESS SMITH HELPER.TABLET TECHNICIAN Work Phone: [facility] 06-18-2024 11:46-0500 SaO2% (BldA) [Mass fraction] 98 % Debbi Praisler-Wood PRESS SMITH HELPER.TABLET TECHNICIAN Work Phone: [facility] 06-18-2024 11:46-0500 Systolic blood pressure 110 mm[Hg] Debbi Praisler-Wood PRESS SMITH HELPER.TABLET TECHNICIAN Work Phone: [facility] 05-10-2024 09:07-0500 Body height 156 cm Marisa William PRESS SMITH HELPER.TABLET TECHNICIAN Work Phone: [facility] 05-10-2024 09:07-0500 Body mass index (BMI) [Ratio] 26.73 kg/m2 Marisa William PRESS SMITH HELPER.TABLET TECHNICIAN Work Phone: [facility] 05-10-2024 09:07-0500 Body weight 65.05 kg Marisa William PRESS SMITH HELPER.TABLET TECHNICIAN Work Phone: [facility] 05-10-2024 09:07-0500 Diastolic blood pressure 64 mm[Hg] Marisa William PRESS SMITH HELPER.TABLET TECHNICIAN Work Phone: [facility] 05-10-2024 09:07-0500 Heart rate 88 /min Marisa William PRESS SMITH HELPER.TABLET TECHNICIAN Work Phone: [facility] 05-10-2024 09:07-0500 Respiratory rate 12 /min Marisa William PRESS SMITH HELPER.TABLET TECHNICIAN Work Phone: [facility] 05-10-2024 09:07-0500 SaO2% (BldA) [Mass fraction] 97 % Marisa William PRESS SMITH HELPER.TABLET TECHNICIAN Work Phone: [facility] 05-10-2024 09:07-0500 Systolic blood pressure 120 mm[Hg] Marisa William PRESS SMITH HELPER.TABLET TECHNICIAN Work Phone: [facility] 02-05-2024 10:49-0400 Body mass index (BMI) [Ratio] 26.45 kg/m2 Naina Nichols PRESS SMITH HELPER.TABLET TECHNICIAN Work Phone: [facility] 02-05-2024 10:49-0400 Body temperature 98.01 [degF] Naina Nichols APRN.TABLET TECHNICIAN Work Phone: [facility] 02-05-2024 10:49-0400 Body weight 62.9 kg Naina Nichols APRN.TABLET TECHNICIAN Work Phone: [facility] 02-05-2024 10:49-0400 Diastolic blood pressure 68 mm[Hg] Naina Nichols APRN.TABLET TECHNICIAN Work Phone: [facility] 02-05-2024 10:49-0400 Heart rate 78 /min Naina Nichols APRN.TABLET TECHNICIAN Work Phone: [facility] 02-05-2024 10:49-0400 Respiratory rate 21 /min Naina Nichols APRN.TABLET TECHNICIAN Work Phone: [facility] 02-05-2024 10:49-0400 SaO2% (BldA) [Mass fraction] 97 % Naina Nichols APRN.TABLET TECHNICIAN Work Phone: [facility] 02-05-2024 10:49-0400 Systolic blood pressure 102 mm[Hg] Naina Nichols APRN.TABLET TECHNICIAN Work Phone: [facility] 11-28-2023 13:35-0400 Body mass index (BMI) [Ratio] 26.24 kg/m2 Krislyn Aberegg PA Work Phone: [facility] 11-28-2023 13:35-0400 Body temperature 96.91 [degF] Krislyn Aberegg PA Work Phone: [facility] 11-28-2023 13:35-0400 Body weight 62.4 kg Krislyn Aberegg PA Work Phone: [facility] 11-28-2023 13:35-0400 Diastolic blood pressure 64 mm[Hg] Krislyn Aberegg PA Work Phone: [facility] 11-28-2023 13:35-0400 Heart rate 88 /min Krislyn Aberegg PA Work Phone: [facility] 11-28-2023 13:35-0400 Respiratory rate 16 /min Krislyn Aberegg PA Work Phone: [facility] 11-28-2023 13:35-0400 SaO2% (BldA) [Mass fraction] 98 % Krislyn Aberegg PA Work Phone: [facility] 11-28-2023 13:35-0400 Systolic blood pressure 112 mm[Hg] Krislyn Aberegg PA Work Phone: [facility] 11-03-2023 08:01-0400 Body mass index (BMI) [Ratio] 27.17 kg/m2 Beltran Pendlebury PRESS SMITH HELPER.TABLET TECHNICIAN Work Phone: [facility] 11-03-2023 08:01-0400 Body temperature 97.3 [degF] Beltran Severinoleterry PRESS SMITH HELPER.TABLET TECHNICIAN Work Phone: [facility] 11-03-2023 08:01-0400 Body weight 64.6 kg Beltran Nielsonterry PRESS SMITH HELPER.TABLET TECHNICIAN Work Phone: [facility] 11-03-2023 08:01-0400 Diastolic blood pressure 68 mm[Hg] Beltran Pendlebury PRESS SMITH HELPER.TABLET TECHNICIAN Work Phone: [facility] 11-03-2023 08:01-0400 Heart rate 82 /min Beltran Severinoleterry PRESS SMITH HELPER.TABLET TECHNICIAN Work Phone: [facility] 11-03-2023 08:01-0400 Respiratory rate 18 /min Beltran Severinorobertterry PRESS SMITH HELPER.TABLET TECHNICIAN Work Phone: [facility] 11-03-2023 08:01-0400 SaO2% (BldA) [Mass fraction] 97 % Beltran Severinorobertterry PRESS SMITH HELPER.TABLET TECHNICIAN Work Phone: [facility] 11-03-2023 08:01-0400 Systolic blood pressure 116 mm[Hg] Beltran Pendrobertterry PRESS SMITH HELPER.TABLET TECHNICIAN Work Phone: [facility] 09-01-2023 13:11-0400 Body height 154.2 cm Marisa William PRESS SMITH HELPER.TABLET TECHNICIAN Work Phone: [facility] 09-01-2023 13:11-0400 Body mass index (BMI) [Ratio] 26.52 kg/m2 Marisa William PRESS SMITH HELPER.TABLET TECHNICIAN Work Phone: [facility] 09-01-2023 13:11-0400 Body weight 63.05 kg Marisa William PRESS SMITH HELPER.TABLET TECHNICIAN Work Phone: [facility] 09-01-2023 13:11-0400 Diastolic blood pressure 62 mm[Hg] Marisa William PRESS SMITH HELPER.TABLET TECHNICIAN Work Phone: [facility] 09-01-2023 13:11-0400 Heart rate 60 /min Marisa William PRESS SMITH HELPER.TABLET TECHNICIAN Work Phone: [facility] 09-01-2023 13:11-0400 Respiratory rate 12 /min Marisa William PRESS SMITH HELPER.TABLET TECHNICIAN Work Phone: [facility] 09-01-2023 13:11-0400 Systolic blood pressure 110 mm[Hg] Marisajose rafael William PRESS SMITH HELPER.TABLET TECHNICIAN Work Phone: [facility] 07-04-2023 15:35-0500 Body temperature 98.49 [degF] Naina Nichols APRN.TABLET TECHNICIAN Work Phone: [facility] 07-04-2023 15:35-0500 Body weight 63.05 kg Naina Nichols APRN.TABLET TECHNICIAN Work Phone: [facility] 07-04-2023 15:35-0500 Diastolic blood pressure 74 mm[Hg] Naina Nichols APRN.TABLET TECHNICIAN Work Phone: [facility] 07-04-2023 15:35-0500 Heart rate 92 /min Naina Nichols APRN.TABLET TECHNICIAN Work Phone: [facility] 07-04-2023 15:35-0500 Respiratory rate 16 /min Naina Nichols APRN.TABLET TECHNICIAN Work Phone: [facility] 07-04-2023 15:35-0500 SaO2% (BldA) [Mass fraction] 98 % Naina Nichols APRN.TABLET TECHNICIAN Work Phone: [facility] 07-04-2023 15:35-0500 Systolic blood pressure 124 mm[Hg] Naina Nichols APRN.TABLET TECHNICIAN Work Phone: [facility] 06-26-2023 16:08-0500 Body temperature 98.01 [degF] May Delaney PRESS SMITH HELPER.TABLET TECHNICIAN Work Phone: [facility] 06-26-2023 16:08-0500 Body weight 63.96 kg May Koeniger PRESS SMITH HELPER.TABLET TECHNICIAN Work Phone: [facility] 06-26-2023 16:08-0500 Diastolic blood pressure 70 mm[Hg] May Delaney PRESS SMITH HELPER.TABLET TECHNICIAN Work Phone: [facility] 06-26-2023 16:08-0500 Heart rate 102 /min May Delaney PRESS SMITH HELPER.TABLET TECHNICIAN Work Phone: [facility] 06-26-2023 16:08-0500 Respiratory rate 18 /min May Delaney PRESS SMITH HELPER.TABLET TECHNICIAN Work Phone: [facility] 06-26-2023 16:08-0500 SaO2% (BldA) [Mass fraction] 98 % May Delaney PRESS SMITH HELPER.TABLET TECHNICIAN Work Phone: [facility] 06-26-2023 16:08-0500 Systolic blood pressure 122 mm[Hg] May Delaney PRESS SMITH HELPER.TABLET TECHNICIAN Work Phone: [facility] 04-20-2023 12:42-0500 Body temperature 98.2 [degF] Kj Amaya MD Work Phone: [facility] 04-20-2023 12:42-0500 Body weight 62.14 kg Kj Amaya MD Work Phone: [facility] 04-20-2023 12:42-0500 Diastolic blood pressure 73 mm[Hg] Kj Amaya MD Work Phone: [facility] 04-20-2023 12:42-0500 Heart rate 83 /min Kj Amaya MD Work Phone: [facility] 04-20-2023 12:42-0500 Respiratory rate 18 /min Kj Amaya MD Work Phone: [facility] 04-20-2023 12:42-0500 SaO2% (BldA) [Mass fraction] 99 % Kj Amaya MD Work Phone: [facility] 04-20-2023 12:42-0500 Systolic blood pressure 137 mm[Hg] Kj Amaya MD Work Phone: [facility] 03-29-2023 07:12-0500 Body height 155.5 cm Marisa William PRESS SMITH HELPER.TABLET TECHNICIAN Work Phone: [facility] 03-29-2023 07:12-0500 Body weight 61.78 kg Marisa William PRESS SMITH HELPER.TABLET TECHNICIAN Work Phone: [facility] 03-29-2023 07:12-0500 Diastolic blood pressure 62 mm[Hg] Marisa William PRESS SMITH HELPER.TABLET TECHNICIAN Work Phone: [facility] 03-29-2023 07:12-0500 Heart rate 69 /min Marisa William PRESS SMITH HELPER.TABLET TECHNICIAN Work Phone: [facility] 03-29-2023 07:12-0500 Respiratory rate 12 /min Marisa William PRESS SMITH HELPER.TABLET TECHNICIAN Work Phone: [facility] 03-29-2023 07:12-0500 SaO2% (BldA) [Mass fraction] 98 % Marisa William PRESS SMITH HELPER.TABLET TECHNICIAN Work Phone: [facility] 03-29-2023 07:12-0500 Systolic blood pressure 98 mm[Hg] Marisa William PRESS SMITH HELPER.TABLET TECHNICIAN Work Phone: [facility] 02-28-2023 12:02-0400 Body temperature 98.1 [degF] Janie Athy PA-C Work Phone: [facility] 02-28-2023 12:02-0400 Body weight 60.33 kg Janie Athy PA-C Work Phone: [facility] 02-28-2023 12:02-0400 Diastolic blood pressure 68 mm[Hg] Janie Athy PA-C Work Phone: [facility] 02-28-2023 12:02-0400 Heart rate 96 /min Janie Athy PA-C Work Phone: [facility] 02-28-2023 12:02-0400 Respiratory rate 16 /min Janie Athy PA-C Work Phone: [facility] 02-28-2023 12:02-0400 SaO2% (BldA) [Mass fraction] 97 % Janie Holder PA-C Work Phone: [facility] 02-28-2023 12:02-0400 Systolic blood pressure 122 mm[Hg] Janie Holder PA-C Work Phone: [facility] 02-21-2023 14:00-0400 Body height 152.[address] Unique Rivas Work Phone: 3(133)828-814585 [address] [place] [address] 02-21-2023 13:59-0400 Body mass index (BMI) [Ratio] 26.2 kg/m2 Dr. Unique Rivas Work Phone: 6(675)365-080971 [place] [address] 02-21-2023 13:59-0400 Body weight 60.[address] Unique Rivas Work Phone: 8(887)878-839271 [place] [address] 02-13-2023 13:26-0400 Body mass index (BMI) [Ratio] 25.8 kg/m2 Dr. Unique Rivas Work Phone: 5(870)619-670471 [place] [address] 02-13-2023 13:26-0400 Body weight 60.[address] Unique Rivas Work Phone: 5(581)622-630771 [place] [address] 02-13-2023 13:26-0400 Diastolic blood pressure 84 mm[Hg] Dr. Unique Rivas Work Phone: 6(846)351-834471 [place] [address] 02-13-2023 13:26-0400 Systolic blood pressure 120 mm[Hg] Dr. Unique Rivas Work Phone: 6(382)363-566571 [place] [address] 01-30-2023 08:13-0400 Body height 152.4 cm [facility] 01-30-2023 08:13-0400 Body mass index (BMI) [Ratio] 25.4 kg/m2 [facility] 01-30-2023 08:13-0400 Body temperature 97.6 [degF] [facility] 01-30-2023 08:13-0400 Body weight 59.14 kg [facility] 01-30-2023 08:13-0400 Diastolic blood pressure 78 mm[Hg] [facility] 01-30-2023 08:13-0400 Heart rate 64 /min [facility] 01-30-2023 08:13-0400 Respiratory rate 14 /min [facility] 01-30-2023 08:13-0400 SaO2% (BldA) [Mass fraction] 98 % [facility] 01-30-2023 08:13-0400 Systolic blood pressure 118 mm[Hg] [facility] 01-24-2023 17:08-0400 Body temperature 97.81 [degF] Lizette Kinney PRESS SMITH HELPER.TABLET TECHNICIAN Work Phone: [facility] 01-24-2023 17:08-0400 Body weight 60.15 kg Lizette Kinney PRESS SMITH HELPER.TABLET TECHNICIAN Work Phone: [facility] 01-24-2023 17:08-0400 Diastolic blood pressure 78 mm[Hg] Lizette Kinney PRESS SMITH HELPER.TABLET TECHNICIAN Work Phone: [facility] 01-24-2023 17:08-0400 Heart rate 79 /min Lizette Kinney PRESS SMITH HELPER.TABLET TECHNICIAN Work Phone: [facility] 01-24-2023 17:08-0400 Respiratory rate 18 /min Lizette Kinney PRESS SMITH HELPER.TABLET TECHNICIAN Work Phone: [facility] 01-24-2023 17:08-0400 SaO2% (BldA) [Mass fraction] 99 % Lizette Kinney PRESS SMITH HELPER.TABLET TECHNICIAN Work Phone: [facility] 01-24-2023 17:08-0400 Systolic blood pressure 110 mm[Hg] Lizette Kinney PRESS SMITH HELPER.TABLET TECHNICIAN Work Phone: [facility] 01-19-2023 14:29-0400 Body temperature 97.81 [degF] Kj Amaya MD Work Phone: [facility] 01-19-2023 14:29-0400 Body weight 58.97 kg Kj Amaya MD Work Phone: [facility] 01-19-2023 14:29-0400 Diastolic blood pressure 60 mm[Hg] Kj Amaya MD Work Phone: [facility] 01-19-2023 14:29-0400 Heart rate 104 /min Kj Amaya MD Work Phone: [facility] 01-19-2023 14:29-0400 Respiratory rate 16 /min Kj Amaya MD Work Phone: [facility] 01-19-2023 14:29-0400 SaO2% (BldA) [Mass fraction] 99 % Kj Amaya MD Work Phone: [facility] 01-19-2023 14:29-0400 Systolic blood pressure 124 mm[Hg] Kj Amaya MD Work Phone: [facility] 10-25-2022 14:02-0400 Body temperature 98.1 [degF] Janie Athy PA-C Work Phone: [facility] 10-25-2022 14:02-0400 Body weight 55.88 kg Janie Athy PA-C Work Phone: [facility] 10-25-2022 14:02-0400 Diastolic blood pressure 74 mm[Hg] Janie Athy PA-C Work Phone: [facility] 10-25-2022 14:02-0400 Heart rate 82 /min Janie Athy PA-C Work Phone: [facility] 10-25-2022 14:02-0400 Respiratory rate 16 /min Janie Athy PA-C Work Phone: [facility] 10-25-2022 14:02-0400 SaO2% (BldA) [Mass fraction] 97 % Janie Athy PA-C Work Phone: [facility] 10-25-2022 14:02-0400 Systolic blood pressure 128 mm[Hg] Janie Athy PA-C Work Phone: [facility] 09-12-2022 15:17-0400 Body temperature 98.2 [degF] Lizette Kinney APRN.CNP Work Phone: [facility] 09-12-2022 15:17-0400 Body weight 53.98 kg Lizette Kinney PRESS SMITH HELPER.TABLET TECHNICIAN Work Phone: [facility] 09-12-2022 15:17-0400 Diastolic blood pressure 60 mm[Hg] Lizette Kinney PRESS SMITH HELPER.TABLET TECHNICIAN Work Phone: [facility] 09-12-2022 15:17-0400 Heart rate 102 /min Lizette Kinney PRESS SMITH HELPER.TABLET TECHNICIAN Work Phone: [facility] 09-12-2022 15:17-0400 Respiratory rate 16 /min Lizette Kinney PRESS SMITH HELPER.TABLET TECHNICIAN Work Phone: [facility] 09-12-2022 15:17-0400 SaO2% (BldA) [Mass fraction] 99 % Lizette Kinney PRESS SMITH HELPER.TABLET TECHNICIAN Work Phone: [facility] 09-12-2022 15:17-0400 Systolic blood pressure 102 mm[Hg] Lizette Kinney PRESS SMITH HELPER.TABLET TECHNICIAN Work Phone: [facility] 06-30-2022 14:05-0500 Body temperature 98.1 [degF] Debbi Praisler-Wood PRESS SMITH HELPER.TABLET TECHNICIAN Work Phone: [facility] 06-30-2022 14:05-0500 Body weight 53.43 kg Debbi Praisler-Wood PRESS SMITH HELPER.TABLET TECHNICIAN Work Phone: [facility] 06-30-2022 14:05-0500 Diastolic blood pressure 64 mm[Hg] Debbi Praisler-Wood PRESS SMITH HELPER.TABLET TECHNICIAN Work Phone: [facility] 06-30-2022 14:05-0500 Heart rate 93 /min Debbi Praisler-Wood PRESS SMITH HELPER.TABLET TECHNICIAN Work Phone: [facility] 06-30-2022 14:05-0500 Respiratory rate 18 /min Debbi Praisler-Wood PRESS SMITH HELPER.TABLET TECHNICIAN Work Phone: [facility] 06-30-2022 14:05-0500 SaO2% (BldA) [Mass fraction] 98 % Debbi Arceo PRESS SMITH HELPER.TABLET TECHNICIAN Work Phone: [facility] 06-30-2022 14:05-0500 Systolic blood pressure 98 mm[Hg] Debbi Arceo PRESS SMITH HELPER.TABLET TECHNICIAN Work Phone: [facility] 11-04-2021 09:50-0400 Body mass index (BMI) [Percentile] Per age and sex 35.88 % Unique Rivas MD Work Phone: [facility] 11-04-2021 09:50-0400 Body temperature 97.5 [degF] Unique Rivas MD Work Phone: [facility] 11-04-2021 09:50-0400 Body weight 48.22 kg Unique Rivas MD Work Phone: [facility] 11-04-2021 09:50-0400 Diastolic blood pressure 60 mm[Hg] Unique Rivas MD Work Phone: [facility] 11-04-2021 09:50-0400 Heart rate 80 /min Unique Rivas MD Work Phone: [facility] 11-04-2021 09:50-0400 Respiratory rate 18 /min Unique Rivas MD Work Phone: [facility] 11-04-2021 09:50-0400 Systolic blood pressure 110 mm[Hg] Unique Rivas MD Work Phone: [facility] 08-09-2021 10:02-0400 Body mass index (BMI) [Percentile] Per age and sex 40.69 % Kj Amaya MD Work Phone: [facility] 08-09-2021 10:02-0400 Body temperature 98.91 [degF] Kj Amaya MD Work Phone: [facility] 08-09-2021 10:02-0400 Body weight 48.99 kg Kj Amaya MD Work Phone: [facility] 08-09-2021 10:02-0400 Diastolic blood pressure 62 mm[Hg] Kj Amaya MD Work Phone: [facility] 08-09-2021 10:02-0400 Heart rate 108 /min Kj Amaya MD Work Phone: [facility] 08-09-2021 10:02-0400 Respiratory rate 16 /min Kj Amaya MD Work Phone: [facility] 08-09-2021 10:02-0400 SaO2% (BldA) [Mass fraction] 99 % Kj Amaya MD Work Phone: [facility] 08-09-2021 10:02-0400 Systolic blood pressure 106 mm[Hg] Kj Amaya MD Work Phone: [facility] Encounters Encounter Date Encounter Type Care Provider Facility Start: 03-12-2025 End: 03-12-2025 [facility] Start: 03-11-2025 End: 03-11-2025 ambulatory [facility] Start: 02-28-2025 End: 02-28-2025 ambulatory [facility] Ricardo Ramos Facility:[facility] Start: 02-28-2025 End: 02-28-2025 ambulatory [facility]ardo [facility] Facility:[facility] Start: 02-20-2025 End: 02-20-2025 ambulatory CHER SCHULTZ [facility] Start: 02-20-2025 End: 02-20-2025 Subsequent hospital visit by physician Cher Schultz MD Work Phone: [facility] Start: 02-11-2025 End: 02-11-2025 ambulatory [facility] Start: 02-10-2025 End: 02-10-2025 Patient encounter procedure Glendy HARE -[facility] Work Phone: Start: 02-10-2025 End: 02-10-[address] Unique Rivas MD Work Phone: [facility] Start: 01-29-2025 End: 01-29-[address] Unique Rivas MD Work Phone: -Lab [facility] Start: 01-29-2025 End: 01-29-2025 Patient encounter procedure Glendy Arvizu CNM -Lab [facility] Start: 01-29-2025 End: 01-29-2025 ambulatory Glendy Arvizu Facility:[facility] Start: 01-27-2025 End: 01-27-2025 Patient encounter procedure Negrita CABRERA -[facility] Work Phone: Start: 01-27-2025 End: 01-27-[address] Unique Rivas MD Work Phone: [facility] Start: 01-14-2025 End: 01-14-2025 ambulatory UNIQUE RAMIREZ [facility] Start: 01-09-2025 End: 01-09-[address] Nereida Chou MD -[facility] Work Phone: Start: 01-09-2025 End: 01-09-[address] Unique Rivas MD Work Phone: [facility] Start: 01-09-2025 End: 01-09-2025 ambulatory Nereida Chou Facility:[facility] Start: 12-19-2024 End: 12-19-2024 Emergency department patient visit PHYSICIAN [facility] Start: 12-16-2024 End: 12-16-2024 ambulatory NEGRITA VITAL [facility] Start: 12-12-2024 End: 12-12-[address] Sarah Ravi DO -[facility] Work Phone: Start: 12-12-2024 End: 12-12-[address] Unique Rivas MD Work Phone: [facility] Start: 12-10-2024 End: 12-10-2024 ambulatory GATO Oconnor [facility] Start: 12-10-2024 End: 12-10-2024 Subsequent hospital visit by physician Gato Trujillo MD Work Phone: [facility] Start: 12-02-2024 End: 12-02-[address] ZAHRAA [facility] Start: 11-14-2024 End: 11-14-[address] Unique Rivas MD Work Phone: -Laboratory Specimen Start: 11-14-2024 End: 11-14-2024 Patient encounter procedure Glendy Arvizu CN -Laboratory Specimen Work Phone: Start: 11-14-2024 End: 11-14-2024 Patient encounter procedure Glendy Arvizu CNM -[facility] Work Phone: Start: 11-14-2024 End: 11-14-[address] Unique Rivas MD Work Phone: -[facility] Start: 11-14-2024 End: 11-14-2024 ambulatory Glendy Arvizu Facility:[facility] Start: 11-02-2024 End: 11-02-2024 Emergency department patient visit Dr. Unique Rivas MD Work Phone: -Emergency Department Work Phone: Start: 10-15-2024 End: 10-15-2024 Patient encounter procedure Negrita Vital TE[employer]CENTER CONSULTANT-C -[facility] Work Phone: Start: 10-15-2024 End: 10-15-[address] Unique Rivas MD Work Phone: [facility] Work Phone: Start: 10-02-2024 End: 10-02-[address] Unique Rivas MD Work Phone: [facility] Work Phone: Start: 10-02-2024 End: 10-02-[address] Nereida Chou MD -Lab [facility] Start: 10-02-2024 End: 10-02-2024 ambulatory Nereida Chou Facility:[facility] Start: 09-16-2024 End: 09-16-[address] Unique Rivas MD Work Phone: [facility] Work Phone: Start: 09-16-2024 End: 09-16-[address] Nereida Chou MD -Laboratory Specimen Work Phone: Start: 09-16-2024 End: 09-16-[address] Sarah Ravi DO -[facility] Work Phone: Start: 09-16-2024 End: 09-16-2024 ambulatory Sarah Ravi Facility:[facility] Start: 09-16-2024 End: 09-16-2024 ambulatory Nereidadeondre Chou Facility:[facility] Start: 08-27-2024 End: 08-27-[address] Nereida Chou MD -[facility] Work Phone: Start: 08-27-2024 End: 08-27-2024 ambulatory Nereida Chou Facility:[facility] Start: 07-30-2024 End: 07-30-2024 Telephone encounter Marisa William APRN.TABLET TECHNICIAN Work Phone: [facility] Comment on above: Orders Start: 07-07-2024 End: 09-06-2024 Follow-up encounter Naina Nichols APRN.TABLET TECHNICIAN Work Phone: [facility] Start: 07-06-2024 End: 07-06-2024 ambulatory MARISA WILLIAM Facility:[facility] Start: 07-06-2024 End: 07-06-2024 Patient encounter procedure Janelle Weldon APRN.TABLET TECHNICIAN Work Phone: [facility] Comment on above: Rhinosinusitis (Prim maru Dx) Start: 07-02-2024 End: 07-02-2024 ambulatory MARISA WILLIAM Facility:[facility] Start: 07-02-2024 End: 07-02-2024 Office outpatient visit 25 minutes Carlos Salazar PA-C Work Phone: [facility] Comment on above: Sore throat (Primary Dx); Acute pharyngitis, unspecified etiology Start: 06-19-2024 End: 08-19-2024 Follow-up encounter Stef AGUDELO Work Phone: [facility] Start: 06-18-2024 End: 06-18-2024 ambulatory MARISA WILLIAM Facility:[facility] Start: 06-18-2024 End: 06-18-2024 Patient encounter procedure Debbi Arceo PRESS SMITH HELPER.TABLET TECHNICIAN Work Phone: [facility] Comment on above: Flu-like symptoms (P rimary Dx) Start: 05-10-2024 End: 05-10-2024 ambulatory MARISA WILLIAM Facility:[facility] Start: 05-10-2024 Encounter for genera l adult medical examination without abnormal findings MARISA WILLIAM [facility] Start: 05-10-2024 End: 05-10-2024 Patient encounter procedure Marisa William PRESS SMITH HELPER.TABLET TECHNICIAN Work Phone: [facility] Comment on above: Wellness examination (Primary Dx); Family history of hypothyroidism; Right leg pain Start: 05-10-2024 End: 05-10-2024 Patient encounter status Marisa William PRESS SMITH HELPER.TABLET TECHNICIAN Work Phone: [facility] Work Phone: Start: 04-23-2024 End: 04-23-2024 ambulatory Raul AGUDELO Facility:[facility] Start: 02-05-2024 End: 02-05-2024 ambulatory MARISA WILLIAM Facility:[facility] Start: 02-05-2024 End: 02-05-2024 Patient encounter procedure Naina Nichols PRESS SMITH HELPER.TABLET TECHNICIAN Work Phone: [facility] Comment on above: URI, acute (Primary Dx) Start: 11-28-2023 End: 11-28-2023 ambulatory MARISA WILLIAM Facility:[facility] Start: 11-28-2023 End: 11-28-2023 Patient encounter procedure Stef AGUDELO Work Phone: [facility] Comment on above: Headache, unspecifie d headache type (Primary Dx) Start: 11-03-2023 End: 11-03-2023 ambulatory MARISA WILLIAM Facility:[facility] Start: 11-03-2023 End: 11-03-2023 Office outpatient visit 15 minutes Beltran Carreon PRESS SMITH HELPER.TABLET TECHNICIAN Work Phone: [facility] Comment on above: Pain of right lower extremity (Primary Dx) Start: 09-01-2023 End: 09-01-2023 ambulatory MARISAJOSE RAFAEL WILLIAM Facility:[facility] Start: 09-01-2023 End: 09-01-2023 Patient encounter procedure Marisa William PRESS SMITH HELPER.TABLET TECHNICIAN Work Phone: [facility] [facility] Comment on above: Wellness examination (Primary Dx) Start: 09-01-2023 End: 09-01-2023 Patient encounter status Marisa William PRESS SMITH HELPER.TABLET TECHNICIAN Work Phone: [facility] Work Phone: Start: 07-04-2023 End: 07-04-2023 Patient encounter procedure Naina Nichols PRESS SMITH HELPER.TABLET TECHNICIAN Work Phone: [facility] Comment on above: Acute otitis media, left (Primary Dx); Sore throat Start: 06-26-2023 End: 06-26-2023 Patient encounter procedure May Delaney PRESS SMITH HELPER.TABLET TECHNICIAN Work Phone: [facility] Comment on above: Exposure to SARS-ass ociated coronavirus (Primary Dx) Start: 04-20-2023 End: 04-20-2023 Patient encounter procedure Kj Amaya MD Work Phone: [facility] Comment on above: Acute hip pain, righ t (Primary Dx) Start: 03-29-2023 End: 03-29-2023 Patient encounter procedure Marisa William APRN.TABLET TECHNICIAN Work Phone: [facility] [place] Comment on above: Wellness examination (Primary Dx) Start: 03-29-2023 End: 03-29-2023 Patient encounter status Marisa William PRESS SMITH HELPER.TABLET TECHNICIAN Work Phone: [facility] Work Phone: Start: 02-28-2023 End: 02-28-2023 Patient encounter procedure Janie RIVASC Work Phone: [facility] Comment on above: Nausea (Primary Dx) Start: 02-21-2023 End: 02-21-[address] Unique Rivas Work Phone: [facility] Work Phone: Start: 02-21-2023 End: 02-21-[address] Unique Rivas Work Phone: [facility]-Laboratory, Specimen Work Phone: Start: 02-21-2023 End: 02-21-[address] Unique Rivas Work Phone: [facility] Work Phone: Start: 02-13-2023 End: 02-13-[address] Unique Rivas Work Phone: [facility] Work Phone: Start: 01-30-2023 End: 01-30-2023 Emergency department patient visit [facility]-Emergency Department Work Phone: Start: 01-24-2023 End: 01-24-2023 Patient encounter procedure Lizette Kinney PRESS SMITH HELPER.TABLET TECHNICIAN Work Phone: [facility] Comment on above: Nausea vomiting and diarrhea (Primary Dx) Start: 01-19-2023 End: 01-19-2023 Patient encounter procedure Kj Amaya MD Work Phone: [facility] Comment on above: Costochondritis (Ale olamide Dx) Start: 10-25-2022 End: 10-25-2022 Patient encounter procedure Janie RIVASC Work Phone: [facility] Comment on above: Fluid level behind t ympanic membrane of right ear (Primary Dx); Headache, unspecified headache type Start: 09-12-2022 End: 09-12-2022 Patient encounter procedure Lizette Kinney PRESS SMITH HELPER.TABLET TECHNICIAN Work Phone: [facility] Comment on above: URI, acute (Primary Dx); Pharyngitis, unspecified etiology Start: 06-30-2022 End: 06-30-2022 Patient encounter procedure Debbi Arceo PRESS SMITH HELPER.TABLET TECHNICIAN Work Phone: [facility] Comment on above: Encounter for [...] Unique Liu ed, MD Work Phone: [facility] [place] Comment on above: Refill Request Start: 01-21-2022 End: 01-21-2022 Patient encounter procedure Nurse Rosales Watson [facility] Comment on above: Encounter for PPD sk [...] Refill Tessa Martinez PA-C Work Phone: [facility] Comment on above: Refill Request Start: 12-01-2021 Telephone encounter Angie Maya RN Occupational Health Comment on above: [facility] COVID Outr each Start: 11-04-2021 End: 11-04-2021 Patient encounter procedure Unique Rivas MD Work Phone: [facility] [place] Comment on above: Attention deficit hy peractivity disorder (ADHD), predominantly inattentive type (Primary Dx); Anxiety Start: 10-22-2021 Refill Unique Liu ed, MD Work Phone: [facility] Comment on above: Refill Request Start: 09-20-2021 Refill Unique Liu ed, MD Work Phone: [facility] [place] Comment on above: Refill Request Start: 09-18-2021 Refill Unique Liu ed, MD Work Phone: [facility] Comment on above: Refill Request Start: 08-09-2021 End: 08-09-2021 Patient encounter procedure Kj Amaya MD Work Phone: [facility] Comment on above: Toothache (Primary [...] HCV Quant by PCR testing - HCVPCR lc#[id number] Non Reactive: < 0.8 Equivocal: >/= 0.8 [...] therefore, no HPV testing was performed.Performed at: [address] [id number] Director: Birdie Tobin MD, Phone: [phone] Start: 09-16-[address] Elma Rivas MD Work Phone: Start: 07-02-2024 STREP A MOLECULAR (POC) Lizette Kinney PRESS SMITH HELPER.TABLET TECHNICIAN Work Phone: Start: 07-04-2023 STREP A MOLECULAR (POC) [facility] Provider Start: 02-21-[address] Unique Rivas Work Phone: Start: 02-21-2023 Chlamydia trachomatis (PCR) Dr. Unique Rivas Work Phone: Start: 09-12-2022 STREP A MOLECULAR (POC) Lizette Kinney PRESS SMITH HELPER.TABLET TECHNICIAN Work Phone: Start: 01-24-2022 INFLUENZA VACCINE QUADRIVALENT [...] Vaccine ( season) Covid-19 Vaccine ( season) [facility] Comment on above: Postponed from 01/06 (Declined at this time) Start: 01-29-2025 End: 01-29-2025 Patient encounter procedure Departed Clinical -Lab [facility] Start: 01-06-2025 COVID-19 VACCINE ( season) COVID-19 VACCINE ( season) [facility] Start: 01-06-2025 Influenza vaccination INFLUENZA VACC INE (#1) [facility] Start: 11-04-2024 Influenza vaccination Influenza Vacc ine (#1) [facility] Comment on above: Postponed from 01/06 (Declined at this time) Start: 11-02-2024 [facility] Start: 09-16-2024 Liquid based cervica l cytology screening [facility] Start: 07-02-2024 End: 07-02-2024 ambulatory 07/02/2024 12:00 PM EST OT/PT/Speech Visit [facility] [address] [place] [address] Lizette Andrews, PT My right leg [facility] Comment on above: My right leg Start: 05-10-2024 End: 08-09-2024 CBC W Auto Differential panel - Blood COMPLETE BLOOD COUNT AND DIFFERENTIAL Lab Routine Wellness examination Expected: 05/10/2024, Expires: 08/09/2024 [facility] Comment on above: Expected: 05/10/2024 , Expires: 08/09/2024 Start: 05-10-2024 End: 08-09-2024 Comprehensive metabolic 2000 panel - Serum or Plasma COMPREHENSIVE METABOLIC PANEL Lab Routine Wellness examination Expected: 05/10/2024, Expires: 08/09/2024 [facility] Work Phone: Comment on above: Expected: 05/10/2024 , Expires: 08/09/2024 Start: 05-10-2024 End: 08-09-2024 Hemoglobin A1c in Blood HEMOGLOBIN A1C Lab Routine Wellness examination Expected: 05/10/2024, Expires: 08/09/2024 [facility] Comment on above: Expected: 05/10/2024 , Expires: 08/09/2024 Start: 05-10-2024 End: 08-09-2024 Lipid 1996 panel - Serum or Plasma LIPID PANEL BASIC Lab Routine Wellness examination Expected: 05/10/2024, Expires: 08/09/2024 [facility] Comment on above: Expected: 05/10/2024 , Expires: 08/09/2024 Start: 05-10-2024 End: 08-09-2024 Thyrotropin [Units/volume] in Serum or Plasma THYROID STIMULATING HORMONE Lab Routine Wellness examination Family history of hypothyroidism Expected: 05/10/2024, Expires: 08/09/2024 [facility] Comment on above: Expected: 05/10/2024 , Expires: 08/09/2024 Start: 04-22-2024 Tetanus vaccination [facility] Start: 04-22-2024 Urine microalbumin profile [facility] Start: 03-29-2024 Covid-19 Vaccine (#1) Covid-19 Vacci ne (#1) [facility] Comment on above: Postponed from 07/11 (Declined at this time) Start: 03-29-2024 Covid-19 Vaccine () Covid-19 Vaccine () [facility] Comment on above: Postponed from 01/06 (Declined at this time) Start: 01-07-2024 Covid-19 Vaccine () Covid-19 Vaccine () [facility] Start: 01-07-2024 Influenza vaccination [facility] Start: 11-16-2023 End: 11-16-2023 Patient encounter procedure 11/16/2023 8:00 AM EDT Office Visit [facility] [address] [place], [place] [id number] Marisa iWlliam, PRESS SMITH HELPER.TABLET TECHNICIAN [address] [place], [place] [address] Follow up from Urgent Care - Thigh pain [facility] Comment on above: [facility] Start: 11-05-2023 Influenza vaccination Influenza Vacc ine (#1) [facility] Comment on above: Postponed from 01/06 (Declined at this time) Start: 05-08-2023 Behavioral Health Screening Behavioral Health Screening [facility] Start: 05-08-2023 Depression Assessment Depression Ass essment [facility] Start: 03-29-2023 End: 06-28-2023 CBC W Auto Differential panel - Blood CBC + DIFF Lab Routine Wellness examination Expected: 03/29/2023, Expires: 06/28/2023 [facility] Work Phone: Comment on above: Expected: 03/29/2023 , Expires: 06/28/2023 Start: 03-29-2023 End: 06-28-2023 Comprehensive metabolic 2000 panel - Serum or Plasma COMP METABOLIC PANEL Lab Routine Wellness examination Expected: 03/29/2023, Expires: 06/28/2023 [facility] Work Phone: Comment on above: Expected: 03/29/2023 , Expires: 06/28/2023 Start: 03-29-2023 End: 06-28-2023 Lipid 1996 panel - Serum or Plasma LIPID PANEL BASIC Lab Routine Wellness examination Expected: 03/29/2023, Expires: 06/28/2023 [facility] Work Phone: Comment on above: Expected: 03/29/2023 , Expires: 06/28/2023 Start: 2023 Pap Testing Pap Testing [facility] Start: 2023 Screening for malign ant neoplasm of cervix [facility] Start: 01-06-2023 Influenza vaccination Influenza Vacc ine (#1) [facility] Start: 12-27-2022 Adult depression screening assessment DEPRESSION SCREENING [facility] Start: 11-04-2022 Adult depression screening assessment DEPRESSION SCREENING [facility] Start: 09-12-2022 End: 09-26-2022 Influenza virus A and B RNA and SARS-CoV-2 (COVID-19) N gene panel - Respiratory specimen by VISNHU with probe detection [facility] Work Phone: Comment on above: Expected: 09/12/2022 , Expires: 09/26/2022 Start: 07-09-2022 Adult depression screening assessment DEPRESSION SCREENING [facility] Start: 05-08-2022 DEPRESSION ASSESSMENT DEPRESSION ASS ESSMENT [facility] Start: 01-06-2022 Influenza vaccination INFLUENZA (#1) [facility] Start: 12-01-2021 End: 12-15-2021 Influenza virus A and B RNA and SARS-CoV-2 (COVID-19) N gene panel - Respiratory specimen by VISHNU with probe detection CAREGIVER COVID + FLU A/B, ROUTINE Microbiology Routine Suspected 2019 novel coronavirus infection Expected: 12/01/2021, Expires: 12/15/2021 [facility] Work Phone: Comment on above: Expected: 12/01/2021 , Expires: 12/15/2021 Start: 05-08-2021 DEPRESSION ASSESSMENT DEPRESSION ASS ESSMENT [facility] Start: 01-12-2020 CHLAMYDIA SCREENING (18-24) CHLAMYDIA SCREENING (18-24) [facility] Start: 01-12-2020 Depression Screening Depression Scre ening [facility] Start: 01-12-2020 GC (GONORRHEA) SCREE DAPHNE (18) GC (GONORRHEA) SCREENING (-) [facility] Start: 01-12-2020 HEPATITIS C SCREENING HEPATITIS C SC ELLY [facility] Start: 01-12-2020 HIV SCREENING HIV SCREENING [facility] Start: 01-12-2020 Screening for Chlamy dwayne trachomatis Chlamydia Screening () [facility] Start: 2018 Meningococcal B Vacc ine (1 of 2 - Standard) Meningococcal B Vaccine (1 of 2 - Standard) [facility] Start: 2018 Meningococcal B Vacc ine: Consider Based On Risk (1 of 2 - Patient Seeks Protection) Meningococcal B Vaccine: Consider Based On Risk (1 of 2 - Patient Seeks Protection) [facility] Start: 2018 Screening for Chlamy dwayne trachomatis CHLAMYDIA SCREEN [facility] Start: 2017 HIV screening HIV SCREENING DISCUSSION [facility] Start: 01-12-2016 PEDS TO ADULT TRANSI TION ANNUAL ASSESSMENT PEDS TO ADULT TRANSITION ANNUAL ASSESSMENT [facility] Start: 01-12-2012 MENINGOCOCCAL B: Con ice cream freezer assistant based on risk (1 of 2 - Risk Bexsero 2-dose series) MENINGOCOCCAL B: Consider based on risk (1 of 2 - Risk Bexsero 2-dose series) [facility] Start: 2007 COVID-19 VACCINE (#1) COVID-19 VACCI NE (#1) [facility] Start: 2007 COVID-19 VACCINE (1) COVID-19 VACCIN E (1) [facility] Start: 2002 COVID-19 VACCINE (#1) COVID-19 VACCI NE (#1) [facility] Start: 2002 Hepatitis C screening HEPATITI S C VIRUS SCREENING [facility] Start: 2002 Screening for Chlamy dwayne trachomatis GONORRHEA SCREEN [facility] CBC W Auto Different ial panel - Blood [facility] CBC W Auto Different ial panel - Blood [facility] Chlamydia deoxyribonucleic acid detection [facility] COVID & INFLUENZA A/ B & RSV NAAT, ROUTINE COVID & INFLUENZA A/B & RSV NAAT, ROUTINE Microbiology Routine Exposure to SARS-associated coronavirus 06/26/2023 4:20 PM EST [facility] Work Phone: COVID & INFLUENZA A/ B & RSV PCR, ROUTINE COVID & INFLUENZA A/B & RSV PCR, ROUTINE Microbiology Routine URI, acute 02/05/2024 11:27 AM EDT [facility] Work Phone: COVID & INFLUENZA A/ B & RSV PCR, ROUTINE COVID & INFLUENZA A/B & RSV PCR, ROUTINE Microbiology Routine Flu-like symptoms 06/18/2024 11:59 AM EST [facility] Work Phone: COVID & INFLUENZA A/ B & RSV PCR, ROUTINE COVID & INFLUENZA A/B & RSV PCR, ROUTINE Microbiology Routine Rhinosinusitis Ordered: 07/06/2024 [facility] Work Phone: Comment on above: Ordered: 07/06/2024 Hepatitis C antibody measurement [facility] Influenza virus A an d B RNA and SARS-CoV-2 (COVID-19) N gene panel - Respiratory specimen by VISHNU with probe detection CAREGIVER COVID + FLU A/B, ROUTINE Microbiology Routine Encounter for screening laboratory testing for COVID-19 virus 06/30/2022 3:27 PM [facility] Work Phone: Influenza virus A an d B RNA and SARS-CoV-2 (COVID-19) N gene panel - Respiratory specimen by VISHNU with probe detection COVID & INFLUENZA A/B NAAT, ROUTINE Microbiology Routine Nausea 02/28/2023 12:49 PM EDT [facility] Work Phone: Measurement of gluco se 2 hours after glucose challenge for glucose tolerance test [facility] Patient Education [facility] Work Phone: Patient referral [facility] Work Phone: PPD (TB INTRADERMAL 90129) B/O PPD (TB INTRADERMAL 08849) B/O Procedures Routine Screening-pulmonary TB Ordered: 07/30/2024 [facility] Work Phone: Comment on above: Ordered: 07/30/2024 Rubella IgG measurement [facility] Serologic test for syphilis [facility] Serologic test for syphilis [facility] [facility] Immunizations Immunization Date Immunization Notes Care Provider Fa erik 02-10-2025 tetanus toxoid, redu sofia diphtheria toxoid, and acellular pertussis vaccine, adsorbed Dr. Unique Rivas MD Work Phone: [facility] 01-24-2022 influenza, injectabl e, quadrivalent, contains preservative Nurse [facility] Work Phone: 01-24-2022 influenza virus vacc ine, unspecified formulation Kj Amaya MD Work Phone: [facility] 01-18-2022 tuberculin skin test ; purified protein derivative solution, intradermal Naina Aldair PRESS SMITH HELPER.TABLET TECHNICIAN Work Phone: [facility] 01-03-2022 tuberculin skin test ; purified protein derivative solution, intradermal Naina Aldair PRESS SMITH HELPER.TABLET TECHNICIAN Work Phone: [facility] 12-27-2021 hepatitis B vaccine, pediatric or pediatric/adolescent dosage Unique Rivas MD Work Phone: [facility] 11-10-2021 varicella virus vaccine Johny Martinez PA-C Work Phone: [facility] 01-26-2021 influenza, injectabl e, quadrivalent, contains preservative Kj Amaya MD Work Phone: [facility] 03-15-2018 influenza, injectabl e, quadrivalent, contains preservative Kj Amaya MD Work Phone: [facility] 03-15-2018 meningococcal polysaccharide (groups A, C, Y and W-135) diphtheria toxoid conjugate vaccine (MCV4P) Kj Amaya MD Work Phone: [facility] 06-12-2017 influenza, injectabl e, quadrivalent, contains preservative Kj Amaya MD Work Phone: [facility] 04-14-2016 Human Papillomavirus 9-valent vaccine Kj Amaya MD Work Phone: [facility] 04-14-2016 influenza, injectabl e, quadrivalent, contains preservative Kj Amaya MD Work Phone: [facility] 04-09-2015 human papilloma viru s vaccine, quadrivalent Kj Amaya MD Work Phone: [facility] 04-09-2015 influenza, injectabl e, quadrivalent, contains preservative Kj Amaya MD Work Phone: [facility] 04-22-2014 human papilloma viru s vaccine, quadrivalent Kj Amaya MD Work Phone: [facility] 04-22-2014 influenza, live, intranasal, quadrivalent Kj Amaya MD Work Phone: [facility] 04-22-2014 meningococcal polysaccharide (groups A, C, Y and W-135) diphtheria toxoid conjugate vaccine (MCV4P) Kj Amaya MD Work Phone: [facility] 04-22-2014 tetanus toxoid, redu sofia diphtheria toxoid, and acellular pertussis vaccine, adsorbed Kj Amaya MD Work Phone: [facility] 02-25-2011 influenza virus vacc ine, live, attenuated, for intranasal use Kj Amaya MD Work Phone: [facility] 02-16-2010 influenza virus vacc ine, live, attenuated, for intranasal use Kj Amaya MD Work Phone: [facility] Work Phone: 05-29-2007 diphtheria, tetanus toxoids and acellular pertussis vaccine Kj Amaya MD Work Phone: [facility] Work Phone: 05-29-2007 measles, mumps and rubella virus vaccine Kj Amaya MD Work Phone: [facility] Work Phone: 05-29-2007 poliovirus vaccine, inactivated Kj Amaya MD Work Phone: [facility] Work Phone: 05-29-2007 varicella virus vaccine Doug Amaya MD Work Phone: [facility] Work Phone: 11-24-2005 pneumococcal conjuga te vaccine, 7 valent Kj Amaya MD Work Phone: [facility] Work Phone: 08-18-2004 pneumococcal conjuga te vaccine, 7 valent Kj Amaya MD Work Phone: [facility] Work Phone: 08-21-2003 diphtheria, tetanus toxoids and acellular pertussis vaccine Kj Amaya MD Work Phone: [facility] Work Phone: 08-21-2003 haemophilus influenz ae type b vaccine, HbOC conjugate Kj Amaya MD Work Phone: [facility] Work Phone: 01-15-2003 measles, mumps and rubella virus vaccine Kj Amaya MD Work Phone: [facility] Work Phone: 01-15-2003 varicella virus vaccine Doug Amaya MD Work Phone: [facility] Work Phone: 2002 hepatitis B vaccine, pediatric or pediatric/adolescent dosage Kj Amaya MD Work Phone: [facility] Work Phone: 2002 diphtheria, tetanus toxoids and acellular pertussis vaccine Kj Amaya MD Work Phone: [facility] Work Phone: 2002 haemophilus influenz ae type b vaccine, HbOC conjugate Kj Amaya MD Work Phone: [facility] Work Phone: 2002 poliovirus vaccine, inactivated Kj Amaya MD Work Phone: [facility] Work Phone: 2002 diphtheria, tetanus toxoids and acellular pertussis vaccine Kj Amaya MD Work Phone: [facility] Work Phone: 2002 haemophilus influenz ae type b vaccine, HbOC conjugate Kj Amaya MD Work Phone: [facility] Work Phone: 2002 pneumococcal conjuga te vaccine, 7 valent Kj Amaya MD Work Phone: [facility] Work Phone: 2002 poliovirus vaccine, inactivated Kj Amaya MD Work Phone: [facility] Work Phone: 2002 diphtheria, tetanus toxoids and acellular pertussis vaccine Kj Amaya MD Work Phone: [facility] Work Phone: 2002 haemophilus influenz ae type b vaccine, HbOC conjugate Kj Amaya MD Work Phone: [facility] Work Phone: 2002 pneumococcal conjuga te vaccine, 7 valent Kj Amaya MD Work Phone: [facility] Work Phone: 2002 poliovirus vaccine, inactivated Kj Amaya MD Work Phone: [facility] Work Phone: 2002 hepatitis B vaccine, pediatric or pediatric/adolescent dosage Kj Amaya MD Work Phone: [facility] Work Phone: 2002 hepatitis B vaccine, pediatric or pediatric/adolescent dosage Kj Amaya MD Work Phone: [facility] Work Phone: Payers Date Payer Category Payer Medicaid (Managed Care) [facility] [id number] 2024 Self-pay [id number] 2022 Medicaid [id number] 2017 Medicaid [employer] [id number] 2017-Present [phone] [address] [place] [address] Medicaid [id number] 2017 Medicaid [id number] 2002 Unknown [id number]. 902 2002 Unknown [id number]. 983 2002 Unknown [id number] 2.16.840.1.830228.3.579.2. 479 2002 Unknown [id number] 2.16.840.1.258973.3.579.2. 479 2002 Unknown [id number] 2.16.840.1.324518.3.579.2. 479 2002 Unknown [id number] 2.16.840.1.087585.3.579.2. 479 Unknown [id number] .840.1.517534.3.579.2. 462 Unknown [id number] .840.1.286629.3.579.2. 462 Unknown [id number] .840.1.983427.3.579.2. 462 Unknown [id number] .840.1.176296.3.579.2. 462 Unknown [id number] .840.1.168116.3.579.2. 462 Unknown [id number] 06.23.830.1.469121.3.579.2. 462 Unknown [id number] 840.1.468352.3.579.2. 462 Unknown [id number] 840.1.583187.3.579.2. 462 Unknown [id number] .840.1.158560.3.579.2. 462 Unknown [id number] 840.1.446939.3.579.2. 462 Unknown [id number] 840.1.128617.3.579.2. 462 Unknown [id number] 840.1.166061.3.579.2. 462 Unknown [id number] .0.1.845365.3.579.2. 462 Unknown [id number] 840.1.714695.3.579.2. 462 Unknown [id number] 840.1.987422.3.579.2. 462 Unknown [id number] .840.1.800227.3.579.2. 462 Unknown [id number] 840.1.380973.3.579.2. 462 Unknown [id number] .840.1.292521.3.579.2. 462 Unknown [id number] 2.16.840.1.145380.3.579.2. 462 Unknown [id number]. 462 Social History Date Type Detail Facility Start: 02-25-2011 End: 12-10-2024 Tobacco smoking status NHIS Never smoked tobacco [facility] Work Phone: Start: 08-09-2021 End: 07-06-2024 Alcohol intake Current non-drinker of alcohol (finding) [facility] Start: 11-02-2010 End: 06-30-2022 Tobacco Comment Both parents inside and outside [facility] Start: 2002 Sex Assigned At Not on file [facility] Start: 07-30-2021 End: 12-30-2021 Exposure to SARS-CoV-2 (event) Not sure [facility] Work Phone: Start: 11-04-2021 History SDOH Alcohol Frequency 1 [facility] [facility] Start: 11-04-2021 History SDOH Alcohol Std Drinks 98 [facility] Start: 11-04-2021 History SDOH Social Connections Phone 5 [facility] Start: 11-04-2021 History SDOH Social Connections Get Together 3 [facility] Start: 11-04-2021 History SDOH Social Connections Membership 2 [facility] Start: 11-04-2021 History SDOH Social Connections Living 8 [facility] Start: 11-04-2021 History SDOH Physica l Activity MPS 0 [facility] Start: 11-04-2021 History SDOH Financial 4 [facility] History of tobacco use Passive smoker [facility] Start: 02-25-2011 End: 12-10-2024 Tobacco use and exposure Smokeless tobacco non-user [facility] Start: 11-04-2021 End: 02-20-2025 History of Social function [facility] Start: 11-04-2021 End: 02-20-2025 Social connection and isolation panel [facility] Do you belong to any clubs or organizations such as moravian groups, unions, fraternal or athletic groups, or school groups? No [facility] Are you now , , , , never or living with a partner? Living with partner [facility] How often to you hav e [...] got money to buy more. Sometimes true [facility] Start: 01-30-2023 End: 02-13-2023 Tobacco smoking status [facility] Unknown if ever smoked [facility] Start: 09-09-2020 Non-smoker [facility] Start: 2000 Sex Assigned At Female [facility] Are you now , , , , never or living with a partner? Refused [facility] How often to you hav e a drink containing alcohol? Monthly or less [facility] How many standard dr inks containing alcohol do you have on a typical day? 1 or 2 [facility] (I/We) worried wheth er (my/our) food would run out before (I/we) got money to buy more. Never true [facility] Start: 08-27-2024 End: 12-12-2024 Tobacco smoking status UTIS Ex-smoker (finding) [facility] Start: 12-10-2024 End: 02-20-2025 Alcoholic beverage intake Lifetime non-drinker (finding) [facility] Start: 07-31-2024 [facility] Start: 12-10-2024 Sex Female (finding) [facility] [...] 10/27/2014 9:31 AM EDT Megha Arvizu Cma [facility] 10-27-2014 Are you blind, or do you have serious difficulty seeing, even when wearing glasses No 10/27/2014 9:31 AM EDMegha Prather Cma [facility] 10-27-2014 Do you have serious difficulty walking or climbing stairs No 10/27/2014 9:31 AM EDMegha Prather Cma [facility] 10-27-2014 Do you have difficul ty dressing or bathing No 10/27/2014 9:31 AM EDMegha Prather Cma [facility] Mental Status Date Assessment Result Facility 01-30-2023 Cognitive function Level Of Cons ciousness Awake;Alert;Appropriate [facility] Work Phone: 10-27-2014 Because of a physica l, mental, or emotional condition, do you have serious difficulty concentrating, remembering, or making decisions No 10/27/2014 9:31 AM EDT Nicole Arvizu Cma'Buddy' M No [facility] Clinical Notes 04-01-2013 to 02-20-2025 Cher [...] dysuria, cramping, n/v. Pt receives care at [place] with Edd Vasquez. documented in this encounter [facility] 02-20-2025 Hospital Discharg e instructions Bebe Rivas RN - 02/20/2025 6:09 PM EDT Please call your [place] [facility] office and notify them you were seen here today. They might want you to be seen sooner than your next scheduled appointment. Continue to drink plenty of fluids and rest. The following attachments cannot be sent through Care Everywhere. Movement Count ([facility]) (Jordanian)documented in this encounter [facility] 02-20-2025 [...] dysuria, cramping, n/v. Pt receives care at [place] with Edd Vasquez. [facility] 02-10-2025 Progress note [facility] 02-10-2025 Progress note Note Date/Time February 10, 2025 2:32pm [facility] [address], [address] [place] [address] OFFICE VISIT Date of Service: 02/10/25 MR#: [id number] Acct: [id number] Name: NAN MEYERS Rep #: [id number] : 2000 Provider: NURYS Arvizu Age/Sex: 25/F Location: [facility] Status: Signed with Addenda ADDENDUM by Meagan Parish on 02/10/25 at 1436 Office Procedure Documentation entered by Meagan Parish 02/10/25 14:36: Immunizations Adacel(Tdap Adolesn/Adult)(PF) 2 Lf-(2.5-5-3-5)-5 Lf/0.5 mL IM syringe Performing Provider: Glendy Arvizu CNM Performing Location: [facility] Administered by: Meagan Parish on 02/10/25 14:35 Dose Route Admin Location Dispensed Lot Number Expiration Date Pack age NDC NDC Carton Forming Machine Tender 0.5 mL IM Left Deltoid 0.5 mL [id number] 01/04/27 [id number] SANOFI- PASTEUR VIS Given Date VIS Provided VIS Publication Date 02/10/25 Single Vaccine 24 Eligibility Eligibility Date Funding Source Not Applicable Date _ cc: ~* Signed Intake Vital Signs 01/09/25 10:32 01/27/25 09:50 02/10/25 14:17 Height 5 ft 5 ft 5 ft Weight: 170 lb BMI 33.2 BP 128/77 H Intake Visit Reasons: 30 WK OB Chief Complaint: 30wk 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 12/12/24 [...] + @ NOB. Treated and vomited med. Amo Rx sent and zofram prior. Rpt test negative (3) History of ectopic : Status: Acute Comment: 09/08/20 - surgery by SM, was in right ovary and still has both tubes. (4) Supervision of high-risk : Status: Acute Qualifiers: Trimester: second trimester Qualified Code(s): O09.92 - Supervision of high risk , unspecified, second trimester Comment: [id number], KELTON 04/23/25, BF: Edward (5) : Status: [...] this visit. GA appropriate handout given. 02/10/25 8119 <Electronically signed by Glendy acosta CNM> Date _ Glendy Arvizu CNM Cosignvalente Signature: Date (if applicable) CC: ~ [facility] Work Phone: 1(634) 745-862009-22-2025 [facility] [address], [address] [place] [id number] OFFICE VISIT Date of Service: 01/27/25 MR#: [id number] Acct: [id number] Name: NAN MEYERS Rep #: [id number] : 2000 Provider: DEBORAH Vital Age/Sex: 25/F Location: [facility] Status: Signed Intake Vital Signs 12/12/24 13:21 12/12/24 13:48 01/09/25 10:32 01/27/25 09:50 Height 5 ft 5 ft 5 ft 5 ft Weight: 160 lb 9 oz 162 lb 3 oz BMI 31.4 31.6 BP 116/70 122/71 H Intake Visit Reasons: 28 WK 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 12/12/24 [...] Monitoring, Signs and Symptoms of Preeclampsia and [place] [employer] ROS Const Reports system reviewed and [...] high risk , unspecified, second trimester Comment: [id number], KELTON 04/23/25, BF: Edward (2) : Status: [...] + @ NOB. Treated and vomited med. Amo Rx sent and zofram prior. Rpt test [...] the past year?: No 01/27/25 1004 s TEAMCENTER CONSULTANT TEAMCENTER CONSULTANT-C> Date _ Negrita [place] TEAMCENTER CONSULTANT TEAMCENTER CONSULTANT-C Cosigner Signature: Date (if applicable) CC: ~ [facility] [id number] [facility] [address] [place] [address], [address] [place] [address] OFFICE VISIT Date of Service: 01/09/25 MR#: [id number] Acct: [id number] Name: NAN MEYERS Rep #: [id number] : 2000 Provider: Dr. Greg Chou MD Age/Sex: 24/F Location: [facility] Status: Signed Intake Vital Signs 10/15/24 08:32 12/12/24 13:48 01/09/25 10:32 Height 5 ft 5 ft 5 ft Weight: 160 lb 9 oz BMI 31.4 BP 116/70 Intake Visit Reasons: 25 wk ob Filler Shredding Machine Loader Required: No Is patient in pain?: No [...] baby current occupational status: employed current occupation: [employer] current occupational exposures/hazards: No pets and animals: [...] physical activity do you participate in: none christopher/congregational: None seatbelt use: always do you feel safe at home: Yes additional social history: BF: Fausto - [employer] History 2 Elective abortions Hx Para 0 [...] is considering moving to a practice in [place] due to moving to that area. 12/12/24 [...] Monitoring, Signs and Symptoms of Preeclampsia and [place] [employer] Results POC Urinalysis 2 Dip (Clinic) [...] + @ NOB. Treated and vomited med. Amo Rx sent and zofram prior. (2) History of ectopic : Status: Acute Comment: 09/08/20 - surgery by , was in right ovary and still has both tubes. (3) Supervision of high-risk : Status: Acute Qualifiers: Trimester: second trimester Qualified Code(s): O09.92 - Supervision of high risk , unspecified, second trimester Comment: [id number], KELTON 12/17/25, BF: Fausto (4) : Status: [...] jolanta [facility]> Date _ Nereida Chou MD [facility] Signature: Date (if applicable) CC: ~ [facility]08-05-2025 Miscellaneous Notes* Nursing Notes - Raissa Fontanez [...] of providers with delivering privileges [facility]. Patient and significant other deny additional concerns. [...] to change into gown. documented in this [facility]08-05-2025 Nurse Note* Nursing Notes - Raissa [...] of providers with delivering privileges within both [facility]. Patient and significant other deny additional concerns. [...] change into gown. [facility]07-10-2025 [facility] [address] [place] [address], [address] [place] [address] OFFICE VISIT Date of Service: 11/14/24 MR#: [id number] Acct: [id number] Name: NAN MEYERS Rep #: [id number] : 2000 Provider: NURYS Arvizu Age/Sex: 24/F Location: [facility] Status: Signed Intake Vital Signs 09/16/24 11:33 11/02/24 09:08 11/14/24 11:40 Height 5 ft 5 ft 5 ft Weight: 143 lb 8 oz BMI 28.0 BP 128/71 H Intake Visit Reasons: 17wk ob Chief Complaint: 17wk OB Filler Shredding Machine Loader Required: No Is patient in pain?: No [...] baby current occupational status: employed current occupation: [employer] current occupational exposures/hazards: No pets and animals: [...] physical activity do you participate in: none christopher/congregational: None seatbelt use: always do you feel safe at home: Yes additional social history: BF: [place] - [employer] History 2 Elective abortions Hx Para 0 [...] is considering moving to a practice in [place] due to moving to that area. ACOG [...] + @ NOB. Treated and vomited med. Amo Rx sent and zofram prior. (2) History of ectopic : Status: Acute Comment: 09/08/20 - surgery by , was in right ovary and still has both tubes. (3) Supervision of high-risk : Status: Acute Qualifiers: Trimester: second trimester Qualified Code(s): O09.92 - Supervision of high risk , unspecified, second trimester Comment: [id number], KELTON 04/23/25, BF: Fausto (4) : Status: [...] Cosignvalente Signature: Date (if applicable) CC: ~ [facility] [id number] Radiology Diagnostic study note [facility] Imaging Services [address] [place], [place] [id number] OB Limited With Biometrics MR#: [id number] Acct: [id number] Name: NAN MEYERS Rep #: [id number] : 2000 F 24 From: Pet er Peer DO PCP: MARISA WILLIAM DIRECTOR OF LABORATORY OPERATIONS-C Status: REG ER Study:OB Limited With Biometrics Date of Exam : 11/02/24 Exam# [id number] Ordering Dr: Mike Dill DO PROCEDURE: OB [...] above diagnosis is low. Maternal- medicine in [facility] consult may be considered Reading [facility] CC: MARISA YANES; Dr. Mike Dill, DO ~ Outsole Cutter Machine: Signed [facility]06-10-2025 Evaluation note* Diagnosis Onset Date [...] acute January 27, 2025 9:44am [facility] Work Phone: [phone]) 280-303706-10-2025 Evaluation note* Diagnosis Onset Date Resolution Status [...] Supervision of high-risk acute February 10 2:15pm [facility] Work Phone: 1(948) 899-733205-12-2025 Evaluation note* Diagnosis Onset Date Resolution Status [...] high-risk acute January 09, 2 025 10:18am [facility] Work Phone: 1(632) 474-779104-22-2025 Evaluation note* Diagnosis Onset Date Resolution Status [...] September 16, 2024 1 1:29am [facility] Work Phone: 1(485) 105-986104-22-2025 Evaluation note* Diagnosis Onset Date Resolution Status [...] of high-risk acute October 15, 2024 8:30am [facility] Work Phone: 1(909) 646-165604-22-2025 Evaluation note* Diagnosis Onset Date Resolution Status [...] of high-risk acute November 14, 2024 11:31am [facility] Work Phone: 1(946) 454-650404-22-2025 Evaluation note* Diagnosis Onset Date Resolution Status [...] of high-risk acute December 12, 2024 1:03pm [facility] Work Phone: [phone]) [phone] Telephone encounter Note* Telephone Encounter - MARELY SANCHEZ - 07/30/2024 7:54 AM EDT Patient scheduled for nurse visit 07/30/24 to receive PPD testing. Please place order at this time. Marely Sanchez LPN [facility]03-25-2025 Miscellaneous Notes* Telephone Encounter - MARELY SANCHEZ - 07/30/2024 7:54 AM EDT Patient scheduled for nurse visit 07/30/24 to receive PPD testing. Please place order at this time. Marely Sanchez LPN documented in [facility]-2025 [id number] (AGENT OF COVID-19) RNA: Not detected INFLUENZA A RNA: Not detected INFLUENZA B RNA: Not detected RESPIRATORY SYNCYTIAL VIRUS (RSV) RNA: Not detectedKettering Health – Soin Medical CenterComment on above:Performed By: #### [id number]- 1 ####[facility] LABCLIA [id number] [address] STATES [id number] NoteHNO ID: [id number] Author: JANELLE WELDON APRN.TABLET TECHNICIAN Service: ? Author Type: Nurse Practitioner Type: Progress Notes Filed: 07/06/2024 11:46 Note Text: Subjective The history is provided by the patient. No websphere administrator was used. KEITH Meyers is a 24 [...] have confirmed and edited as necessary, the [facility] Review of Systems Constitutional: Negative for [...] detail warranting prompt ER evaluation. Janelle Weldon APRN.LACEYKettering Health – Soin Medical Center03-01-2025 History of Present illness Narrative* Janelle Weldon APRN.[facility] - 07/06/2024 11:42 AM EST Subjective The history is provided by the patient. No websphere administrator was used. HPI Nan Meyers is a [...] have confirmed and edited as necessary, the [facility] Review of Systems Constitutional: Negative for [...] evaluation. Janelle Weldon APRN.CNP documented in this [facility]Par[facility]03-01-2025 Instructions* Patient Instructions* Janelle Weldon APRN.CNP [...] breath, inability to swallow. documented in this encounterPar[facility]02-25-2025 NoteHNO ID: [id number] Author: CARLOS SALAZAR PA-C Service: ? Author Type: Physician Advanced Practice Professional Type: Progress Notes Filed: 07/02/2024 17:38 Note Text: This note was created using Dream Dinners. Deonte Meyers is a 24 year old [...] J02.9 - PREDNISONE 20 MG TABLET [facility] History of Present illness Narrative* Carlos Salazar PA-C - 07/02/2024 5:24 PM EST This note was created using Dream D[employer]. Subjective Nan Meyers is a 24 year [...] TABLET Carlos Salazar PA-C documented in [facility]Par[facility]02-11-2025 Instructions* Patient Instructions* Debbi Arceo APRN.CNP [...] illness Debbi Arceo APRN.CNP documented in this encounterParma [facility]02-11-2025 [id number]-0 (AGENT OF COVID-19) RNA: Not detected INFLUENZA A RNA: Not detected INFLUENZA B RNA: Not detected RESPIRATORY SYNCYTIAL VIRUS (RSV) RNA: Not detectedKettering Health – Soin Medical CenterComment on above:Performed By: #### [id number]- 1 ####[facility] LABCLIA [id number] [address] STATES OF [id number] NoteHNO ID: [id number] Author: DEBBI ARCEO APRN.CNP Service: ? Author [...] Discussed expected course of illness Debbi Arceo APRN.[facility]02-11-2025 History of Present illness Narrative* Debbi Arceo APRN.[facility] - 06/18/2024 11:58 AM EST Subjective [...] Discussed expected course of illness Debbi Arceo APRN.TABLET TECHNICIAN documented in this encounterParma [facility]01-03-2025 NoteHNO ID: [id number] Author: MARISA WILLIAM APRN.LACEY Service: ? Author Type: Nurse Practitioner Type: Progress Notes Filed: 05/10/2024 10:00 Note Text: Chief Complaint Patient presents with: Physical: Needs for new job HPI Nan Meyers is a 24 year old female who presents here today for Above Complaints. Nan is an established patient of myself. Concerns today.. 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 [...] referral. I also discussed with patient that direct care professional may be beneficial. Patient was educated on [...] HIV Screening Discontinued ASSESSMENT/ (more content not included)...[facility]01-03-2025 History of Present illness Narrative* Marisa William, LUIS CARLOS.TABLET TECHNICIAN - 05/10/2024 9:21 AM EST Chief Complaint Patient presents with: Physical: Needs for new job HPI Nan Meyers is a 24 year old female who presents here today for Above Complaints. Nan is an established patient of myself. Concerns today.. 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 [...] referral. I also discussed with patient that direct care professional may be beneficial. Patient was educated on [...] Patient agreeable to treatment plan. Marisa Pro APRN.TABLET TECHNICIAN [address] [place] [address] documented in this encounterParma [facility]09-30-2024 NoteHNO ID: [id number] Author: NAINA NICHOLS APRN.[facility] Service: ? Author Type: Nurse Practitioner [...] Patient agreeable to treatment plan. Naina Nichols APRN.[facility]09-30-2024 History of Present illness Narrative* Naina Nichols APRN.[facility] - 02/05/2024 10:54 AM EDT CC: [...] plan. Naina Nichols APRN.LACEY documented in this encounterParma [facility]07-23-2024 NoteHNO ID: [id number] Author: STEF GUEVARA PA Service: ? Author Type: Physician Advanced Practice Professional Type: Progress Notes Filed: 11/28/2023 13:48 Note Text: This note was created using Zairgeter. Subjective Nan Meyers is a 23 year [...] detail warranting prompt ER evaluation. Stef Guevara [facility]07-23-2024 History of Present illness Narrative* Stef Guevara PA - 11/28/2023 1:40 PM EDT This note was created using Dream Dinners. Subjective Nan Meyers is a 23 year [...] ER evaluation. JAMMIE Farris documented in this encounterParma [facility]06-28-2024 NoteHNO ID: [id number] Author: BELTRAN CARREON APRN.TABLET TECHNICIAN Service: ? Author Type: Nurse Practitioner Type: [...] referral. I also discussed with patient that direct care professional may be beneficial. Patient was educated on [...] of care. This note was generated using MailPix software. It may contain errors in wording, punctuation, or spelling. Beltran Carreon APRN.[facility]06-28-2024 History of Present illness Narrative* Beltran [...] to work. Does work as an [employer] works 12-hour days. No numbness no tingling. [...] referral. I also discussed with patient that direct care professional may be beneficial. Patient was educated on [...] of care. This note was generated using MailPix software. It may contain errors in wording, punctuation, or spelling. Beltran Carreon APRN.LACEY documented in this encounterParma [facility]04-26-2024 NoteHNO ID: [id number] Author: MARISA WILLIAM APRN.CNP Service: ? Author Type: Nurse Practitioner Type: Progress Notes Filed: 09/01/2023 14:29 Note Text: Chief Complaint Patient presents with: physical HPI Nan Meyers is a 23 year old female who presents here today for Above Complaints. Nan is an established patient of Dr. Joiner, and myself. Concerns today... 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 Has paperwork to fill out. 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 Nan is an established patient of Dr. Joiner, Do and myself. Concerns today... 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 Has paperwork to fill out. Recent wellness [...] No history of dysuria, frequency or incontinence IRRIGATING PUMP OPERATOR: Negative for abnormal vaginal bleeding, abnormal [...] new employer, pt cleared to work as TEAM MANAGER from my standpoint. No concerns. - immunization record printed for employer. RTO annually and as needed. Prescription instructions reviewed with patient as applicable. Potential red flag symptoms discussed with the patient. Reviewed appropriate action plan to take if red flag symptoms occur. Patient agreeable to treatment plan. Marisa Pro APRN.LACEY [address] [place] [address] documented in this encounterParma [facility]02-27-2024 History of Present illness Narrative* Naina [...] upon. Naina Nichols APRN.LACEY documented in this encounterParma Community [facility] Hospital02-19-2024 History of Present illness Narrative* May [...] My Chart. MDM: Patient presented to the [facility] for viral testing. Nan Meyers has [...] A/B & RSV NAAT, ROUTINE May Delaney APRN.TABLET TECHNICIAN documented in this encounterParma Community [facility] Hospital12-14-2023 History of Present illness Narrative* Kj [...] Wt 62.1 kg (137 lb) LMP 10/18/2022 LaU186% BMI 25.70 kg/m PHYSICAL EXAM: GEN: pleasant, [...] improving. Kj Amaya MD documented in this encounterParma Community [facility] Hospital11-22-2023 History of Present illness Narrative* Marisa William APRN.TABLET TECHNICIAN - 03/29/2023 7:03 AM EST Chief Complaint Patient presents with: Physical HPI Nan Meyers is a 23 year old female who presents here today for Above Complaints. Nan is establishing care with our PCP team today from pediatrics. Concerns today.. Routine physical for new job. 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 Eats healthy overall and stays active daily. [...] Patient agreeable to treatment plan. Marisa Pro APRN.TABLET TECHNICIAN [address] [place] [address] documented in this encounterParma Community General [facility] History of Present illness Narrative* Janie Holder PA-C - 02/28/2023 12:35 PM EDT This note was created using Zairgeter. Subjective Nan Meyers is a 23 year [...] Wt 60.3 kg (133 lb) LMP 10/18/2022 GdQ392% BMI 25.77 kg/m Physical Exam Vitals reviewed. [...] ROUTINE Janie Holder PA-C documented in this encounterPar[facility]09[facility] History of Present illness Narrative* Lizette Kinney APRN.TABLET TECHNICIAN - 01/24/2023 5:20 PM EDT This note was created using [employer]. Subjective Nan Meyers is a 23 year old female. 23 year old female with PMH ADHD, anxiety presents for complaints of illness. Acute onset 0400 Monday morning +N/V/D +stomach cramps. States that she is correlating it with eating food from [employer] Monday night. Endorses that today she has complete resolvement of symptoms. Denies fever or chills here Denies N/V/D today Endorses she is here for a work note. States that her work threatened termination without medical excuse. The history is provided by the patient. No websphere administrator was used. Vomiting This is a new [...] Provided Lizette Kinney APRN.LACEY documented in this encounterPar[facility]09-14-2023 History of Present illness Narrative* Kj Amaya MD - 01/19/2023 2:41 PM EDT Patient presents with: Pain: chest pain x 3-4 days, off and on HPI: chest pain: Duration: 3-4 days Location: right mid chest Character: sharp, intermittent, lasts 1 minute then resolves Radiation: No. 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 Kj Amaya MD documented in this encounterPar[facility]06-20-2023 History of Present illness Narrative* Janie Holder PA-C - 10/25/2022 2:49 PM EDT This note was created using Bioscaler[employer]. Deonte Meyers is a 22 year old [...] plan. Janie Holder PA-C documented in this encounterPar[facility]06-20-2023 Instructions* Patient Instructions* Janie Holder PA-C - 10/25/2022 2:20 PM EDT May take 600mg of ibuprofen every 6-8 hours and tylenol 500-1000mg every 4-6 hours(max dose 4000 mga day) Trial flonase and zyrtec for fluid in ear. If not better follow up with pcp. documented in this encounterPar[facility]05-08-2023 History of Present illness Narrative* Lizette Kinney APRN.TABLET TECHNICIAN - 09/12/2022 3:30 PM EDT This note was created using [employer]. Subjective Nan Meyers is a 22 year [...] history is provided by the patient. No websphere administrator was used. Sore Throat This is a [...] week Lizette Kinney APRN.LACEY documented in this encounterPar[facility]02-23-2023 Instructions* Patient Instructions* Tessa Gallegos - [...] ROUTINE Tessa Gallegos APRN-student documented in this encounterParma [facility]02-23-2023 History of Present illness Narrative* Debbi Arceo APRN.TABLET TECHNICIAN - 06/30/2022 2:09 PM EST This note was created using [employer]. Subjective Nan Meyers is a 22 year [...] Discussed expected course of illness TEACHING PROVIDER (Physician/PA/PRESS SMITH HELPER) NOTE OF PERSONAL INVOLVEMENT IN CARE: I have personally seen and examined the patient and performed the medical decision-making components. I have reviewed the Advanced Practice Registered Nurse (PRESS SMITH HELPER) Student's documentation and verified the findings in the note as written. Any additions or changes are noted in bold/italics. Signature: Debbi Arceo Date: 06/30/2022 Time: 2:29 PM documented in this encounterParma [facility] Hospital10-20-2022 Miscellaneous Notes* Telephone Encounter - Unique [...] done Radha Kaiser LPN' documented in this encounterParma [facility] Hospital09-23-2022 Miscellaneous Notes* Telephone Encounter - Unique [...] 01/06/2022 Adriana Garces RN documented in this encounterParma [facility] Hospital08-18-2022 Miscellaneous Notes* Telephone Encounter - Unique [...] done Jonn Hardin RN documented in this encounterPar[facility] Hospital08-03-2022 Miscellaneous Notes* Telephone Encounter - Radha [...] done Radha Kaiser LPN documented in this encounterParma [facility]07-27-2022 Miscellaneous Notes* Telephone Encounter - Angie Maya RN - 12/01/2021 8:48 PM EDT Images from the original note were not included. Symptomatic Caregiver COVID Call Patient Name: Nan Meyers Date of : 2000 Primary Care Physician: Unique Rivas MD Service Date: 12/01/2021 Service Time: 8:48 PM Symptomatic Caregiver COVID Call - confirmed: Yes -Caregiver employee ID: [id number] -Symptom onset: 11/30 Covid Immunization Dates Overdue [...] Time: 8:48 PM Pager/Contact: documented in this encounterParma [facility]06-30-2022 History of Present illness Narrative* Unique [...] Continue current medication. - Letter written for supervisor rides animal - Follow up in 3-6 months for routine ADHD follow up I spent a total of 30 minutes on the date of the service which included preparing to see the patient, [id number] patient care, completing clinical documentation and obtaining and/or reviewing separately obtained history. SIGNATURE: Unique Rivas MD PATIENT NAME: Nan Meyers DATE: November 04, 2021 TIME: 9:56 AM documented in this encounterParma [facility] Hospital06-30-2022 Instructions* Patient Instructions* Unique Rivas MD [...] drinks Go! Be healthy, inside and out! [email or web address] documented in this encounterParma [facility]05-17-2022 Miscellaneous Notes* Telephone Encounter - Allyn Leach Ma - 09/21/2021 8:04 AM EDT Refill has been sent to the pharmacy for months 09/20/21, 10/20/21 and 11/19/21 documented in this encounterParma [facility] Hospital05-17-2022 Miscellaneous Notes* Telephone Encounter - Allyn [...] done May Shaffer RN documented in this encounterParma [facility] Hospital05-16-2022 Instructions* Patient Instructions* Unique Rivas MD [...] drinks Go! Be healthy, inside and out! [email or web address] documented in this encounterParma [facility] Hospital04-04-2022 History of Present illness Narrative* Kj [...] dentist. Kj Amaya MD documented in this encounterParma [facility] Hospital11-25-2013 History of Past illness Narrative* Problem Noted Date Resolved Date Short stature 04/01/2013 07/09/2021 Overview: April 01, 2013 - bone age is delayed Fracture of left distal radius 04/16/2012 0 06/15/2012 Fracture of radius, distal, right, closed 201104/16/2012 Poor weight gain (0-17) 11/08/2011 07/10/19 22 Constipation 07/26/2011 11/08/2011 documented as of this encounter (statuses as of 08/09/2021) [facility] of [facility] illness Narrative* Problem Noted Date Resolved Date Short stature 04/01/2013 07/09/2021 Overview: April 01, 2013 - bone age is delayed Fracture of left distal radius 04/16/2012 0 06/15/2012 Fracture of radius, distal, right, closed 201104/16/2012 Poor weight gain (0-17) 11/08/2011 07/10/19 22 Constipation 07/26/2011 11/08/2011 documented as of this encounter (statuses as of 09/21/2021) [facility] Narrative* Problem Noted Date Resolved Date Short stature 04/01/2013 07/09/2021 Overview: April 01, 2013 - bone age is delayed Fracture of left distal radius 04/16/2012 0 06/15/2012 Fracture of radius, distal, right, closed 201104/16/2012 Poor weight gain (0-17) 11/08/2011 07/10/19 22 Constipation 07/26/2011 11/08/2011 documented as of this encounter (statuses as of 09/21/2021) [facility] Narrative* Problem Noted Date Resolved Date Short stature 04/01/2013 07/09/2021 Overview: April 01, 2013 - bone age is delayed Fracture of left distal radius 04/16/2012 0 06/15/2012 Fracture of radius, distal, right, closed 201104/16/2012 Poor weight gain (0-17) 11/08/2011 07/10/19 22 Constipation 07/26/2011 11/08/2011 documented as of this encounter (statuses as of 10/22/2021) [facility] Narrative* Problem Noted Date Resolved Date Short stature 04/01/2013 07/09/2021 Overview: April 01, 2013 - bone age is delayed Fracture of left distal radius 04/16/2012 0 06/15/2012 Fracture of radius, distal, right, closed 201104/16/2012 Poor weight gain (0-17) 11/08/2011 07/10/19 22 Constipation 07/26/2011 11/08/2011 documented as of this encounter (statuses as of 11/18/2021) [facility] Narrative* Problem Noted Date Resolved Date Short stature 04/01/2013 07/09/2021 Overview: April 01, 2013 - bone age is delayed Fracture of left distal radius 04/16/2012 0 06/15/2012 Fracture of radius, distal, right, closed 201104/16/2012 Poor weight gain (0-17) 11/08/2011 07/10/19 22 Constipation 07/26/2011 11/08/2011 documented as of this encounter (statuses as of 12/02/2021) [facility] Narrative* Problem Noted Date Resolved Date Short stature 04/01/2013 07/09/2021 Overview: April 01, 2013 - bone age is delayed Fracture of left distal radius 04/16/2012 0 06/15/2012 Fracture of radius, distal, right, closed 201104/16/2012 Poor weight gain (0-17) 11/08/2011 07/10/19 22 Constipation 07/26/2011 11/08/2011 documented as of this encounter (statuses as of 12/08/2021) [facility] Narrative* Problem Noted Date Resolved Date Short stature 04/01/2013 07/09/2021 Overview: April 01, 2013 - bone age is delayed Fracture of left distal radius 04/16/2012 0 06/15/2012 Fracture of radius, distal, right, closed 201104/16/2012 Poor weight gain (0-17) 11/08/2011 07/10/19 22 Constipation 07/26/2011 11/08/2011 documented as of this encounter (statuses as of 12/23/2021) [facility] Narrative* Problem Noted Date Resolved Date Short stature 04/01/2013 07/09/2021 Overview: April 01, 2013 - bone age is delayed Fracture of left distal radius 04/16/2012 0 06/15/2012 Fracture of radius, distal, right, closed 201104/16/2012 Poor weight gain (0-17) 11/08/2011 07/10/19 22 Constipation 07/26/2011 11/08/2011 documented as of this encounter (statuses as of 12/28/2021) [facility] Narrative* Problem Noted Date Resolved Date Short stature 04/01/2013 07/09/2021 Overview: April 01, 2013 - bone age is delayed Fracture of left distal radius 04/16/2012 0 06/15/2012 Fracture of radius, distal, right, closed 201104/16/2012 Poor weight gain (0-17) 11/08/2011 07/10/19 22 Constipation 07/26/2011 11/08/2011 documented as of this encounter (statuses as of 01/06/2022) [facility] Narrative* Problem Noted Date Resolved Date Short stature 04/01/2013 07/09/2021 Overview: April 01, 2013 - bone age is delayed Fracture of left distal radius 04/16/2012 0 06/15/2012 Fracture of radius, distal, right, closed 201104/16/2012 Poor weight gain (0-17) 11/08/2011 07/10/19 22 Constipation 07/26/2011 11/08/2011 documented as of this encounter (statuses as of 01/21/2022) [facility] Narrative* Problem Noted Date Resolved Date Short stature 04/01/2013 07/09/2021 Overview: April 01, 2013 - bone age is delayed Fracture of left distal radius 04/16/2012 0 06/15/2012 Fracture of radius, distal, right, closed 201104/16/2012 Poor weight gain (0-17) 11/08/2011 07/10/19 22 Constipation 07/26/2011 11/08/2011 documented as of this encounter (statuses as of 01/24/2022) [facility] Narrative* Problem Noted Date Resolved Date Short stature 04/01/2013 07/09/2021 Overview: April 01, 2013 - bone age is delayed Fracture of left distal radius 04/16/2012 0 06/15/2012 Fracture of radius, distal, right, closed 201104/16/2012 Poor weight gain (0-17) 11/08/2011 07/10/19 22 Constipation 07/26/2011 11/08/2011 documented as of this encounter (statuses as of 01/25/2022) [facility] Narrative* Problem Noted Date Resolved Date Short stature 04/01/2013 07/09/2021 Overview: April 01, 2013 - bone age is delayed Fracture of left distal radius 04/16/2012 0 06/15/2012 Fracture of radius, distal, right, closed 201104/16/2012 Poor weight gain (0-17) 11/08/2011 07/10/19 22 Constipation 07/26/2011 11/08/2011 documented as of this encounter (statuses as of 01/28/2022) [facility] Narrative* Problem Noted Date Resolved Date Short stature 04/01/2013 07/09/2021 Overview: April 01, 2013 - bone age is delayed Fracture of left distal radius 04/16/2012 0 06/15/2012 Fracture of radius, distal, right, closed 201104/16/2012 Poor weight gain (0-17) 11/08/2011 07/10/19 22 Constipation 07/26/2011 11/08/2011 documented as of this encounter (statuses as of 02/24/2022) [facility] Narrative* Problem Noted Date Resolved Date Short stature 04/01/2013 07/09/2021 Overview: April 01, 2013 - bone age is delayed Fracture of left distal radius 04/16/2012 0 06/15/2012 Fracture of radius, distal, right, closed 201104/16/2012 Poor weight gain (0-17) 11/08/2011 07/10/19 22 Constipation 07/26/2011 11/08/2011 documented as of this encounter (statuses as of 06/30/2022) [facility] Narrative* Problem Noted Date Resolved Date Short stature 04/01/2013 07/09/2021 Overview: April 01, 2013 - bone age is delayed Fracture of left distal radius 04/16/2012 0 06/15/2012 Fracture of radius, distal, right, closed 201104/16/2012 Poor weight gain (0-17) 11/08/2011 07/10/19 22 Constipation 07/26/2011 11/08/2011 documented as of this encounter (statuses as of 07/01/2022) [facility] Narrative* Problem Noted Date Resolved Date Short stature 04/01/2013 07/09/2021 Overview: April 01, 2013 - bone age is delayed Fracture of left distal radius 04/16/2012 0 06/15/2012 Fracture of radius, distal, right, closed 201104/16/2012 Poor weight gain (0-17) 11/08/2011 07/10/19 22 Constipation 07/26/2011 11/08/2011 documented as of this encounter (statuses as of 09/13/2022) [facility] Narrative* Problem Noted Date Resolved Date Short stature 04/01/2013 07/09/2021 Overview: April 01, 2013 - bone age is delayed Fracture of left distal radius 04/16/2012 0 06/15/2012 Fracture of radius, distal, right, closed 201104/16/2012 Poor weight gain (0-17) 11/08/2011 07/10/19 22 Constipation 07/26/2011 11/08/2011 documented as of this encounter (statuses as of 10/26/2022) [facility] Narrative* Problem Noted Date Diagnosed Date Resolved Date Short stature 04/01/2013 07/09/2021 Overview: April 01, 2013 - bone age is delayed Fracture of left distal radius 04/16/2012 06/15/2012 Fracture of radius, distal, right, closed 03/31/2012 04/16/2012 Poor weight gain (0-17) 11/08/2011 03/0 08/2021 Constipation 07/26/2011 11/08/2011 documented as of this encounter (statuses as of 01/19/2023) [facility] Narrative* Problem Noted Date Diagnosed Date Resolved Date Short stature 04/01/2013 07/09/2021 Overview: April 01, 2013 - bone age is delayed Fracture of left distal radius 04/16/2012 06/15/2012 Fracture of radius, distal, right, closed 03/31/2012 04/16/2012 Poor weight gain (0-17) 11/08/2011 03/0 08/2021 Constipation 07/26/2011 11/08/2011 documented as of this encounter (statuses as of 01/25/2023) [place] [id number] History of Past illness Narrative* Problem Noted Date Diagnosed Date Resolved Date Short stature 04/01/2013 07/09/2021 Overview: April 01, 2013 - bone age is delayed Fracture of left distal radius 04/16/2012 06/15/2012 Fracture of radius, distal, right, closed 03/31/2012 04/16/2012 Poor weight gain (0-17) 11/08/2011 03/0 08/2021 Constipation 07/26/2011 11/08/2011 documented as of this encounter (statuses as of 02/28/2023) [place] [id number] History of Past illness Narrative* Problem Noted Date Diagnosed Date Resolved Date Short stature 04/01/2013 07/09/2021 Overview: April 01, 2013 - bone age is delayed Fracture of left distal radius 04/16/2012 06/15/2012 Fracture of radius, distal, right, closed 03/31/2012 04/16/2012 Poor weight gain (0-17) 11/08/2011 03/0 08/2021 Constipation 07/26/2011 11/08/2011 documented as of this encounter (statuses as of 03/29/2023) [facility] Narrative* Problem Noted Date Diagnosed Date Resolved Date Short stature 04/01/2013 07/09/2021 Overview: April 01, 2013 - bone age is delayed Fracture of left distal radius 04/16/2012 06/15/2012 Fracture of radius, distal, right, closed 03/31/2012 04/16/2012 Poor weight gain (0-17) 11/08/2011 03/0 08/2021 Constipation 07/26/2011 11/08/2011 documented as of this encounter (statuses as of 04/21/2023) [facility] Narrative* Problem Noted Date Diagnosed Date Resolved Date Short stature 04/01/2013 07/09/2021 Overview: April 01, 2013 - bone age is delayed Fracture of left distal radius 04/16/2012 06/15/2012 Fracture of radius, distal, right, closed 03/31/2012 04/16/2012 Poor weight gain (0-17) 11/08/2011 03/0 08/2021 Constipation 07/26/2011 11/08/2011 documented as of this encounter (statuses as of 06/26/2023) [facility] Narrative* Problem Noted Date Diagnosed Date Resolved Date Short stature 04/01/2013 07/09/2021 Overview: April 01, 2013 - bone age is delayed Fracture of left distal radius 04/16/2012 06/15/2012 Fracture of radius, distal, right, closed 03/31/2012 04/16/2012 Poor weight gain (0-17) 11/08/2011 03/0 08/2021 Constipation 07/26/2011 11/08/2011 documented as of this encounter (statuses as of 07/05/2023) [facility] Author Arnoldo Harding [facility] January 30, 2023 8:53am Note Date/Time January 30, 2023 8:51am [facility] Medical Records Department [address] [place] [address] Emergency Department Summary 01/30/23 MR#: [id number] Acct: [id number] Name: NAN MEYERS Rep #:[id number] : 2000 23 From: Arnoldo Hardign MD PCP: Dr. Unique Rivas MD Status:P [...] as well. She does not see an SUBSTATION OPERATOR CHIEF regularly but wants to start control again. [...] was also recommended to follow-up with an SUBSTATION OPERATOR CHIEF. She was given the number to the [facility] on-call at her request. I feel [...] positive home , and follow-up with an SUBSTATION OPERATOR CHIEF soon as possible. Return instructions to the [...] Primary Care Provider: Unique Rivas Referrals: Unique Rvias MD [Primary Care Provider] - Nereida Chou MD [Med Staff - Active Staff] - As soon as possible Disposition Disposition: Home, Self Care What to do if you have Problems For any increased pain, shortness of breath, bleeding, nausea or vomiting, chestpain, or any unexpected problems, contact your Primary Care Provider. Call [facility] ([phone]) or report to the closest Emergency Room. Call 911 if necessary. 01/30/23 0853 <Electronically signed by Arnoldo Harding MD> Cosigner Signature (if applicable): CC: Dr. Unique Rivas MD ~ Signed [facility] Work Phone: Evaluation note* Diagnosis Toothache- Primary Unspecified disorder of the teeth and supporting structures documented [facility] this encounter [facility] [place] [facility]* Diagnosis Attention deficit hyperactivity disorder (ADHD), unspecified ADHD type- Primary [facility]* Diagnosis Attention deficit hyperactivity disorder (ADHD), unspecified ADHD type [facility] Attention deficit hyperactivity disorder (ADHD), unspecified ADHD type [facility] Diagnosis Attention deficit hyperactivity disorder (ADHD), predominantly inattentive type- Primary Anxiety Anxiety state, unspecified documented [facility]* Diagnosis Suspected 2019 novel coronavirus infection- Primary [facility]* Diagnosis Attention deficit hyperactivity disorder (ADHD), unspecified ADHD type [facility]* Diagnosis Attention deficit hyperactivity disorder (ADHD), unspecified ADHD type [facility]* Diagnosis Encounter for immunization- Primary Need for other specified prophylactic vaccination against single bacterial disease documented in this encounter [facility] note* Diagnosis Encounter for PPD skin test reading- Primary Other follow-up examination Screening-pulmonary TB Screening examination for pulmonary tuberculosis documented in this encounter [facility] note* Diagnosis Encounter for PPD skin test reading- Primary Other follow-up examination [facility] [place] [facility]* Diagnosis Attention deficit hyperactivity disorder (ADHD), unspecified ADHD type documented in this encounter [facility] note* Diagnosis Encounter for screening laboratory testing for COVID-19 virus- Primary documented in this encounter [facility] note* Diagnosis URI, acute- Primary Acute upper respiratory infections of unspecified site Pharyngitis, unspecified etiology documented in this encounter [facility] note* Diagnosis Fluid level behind tympanic membrane of right ear- Primary Headache, unspecified headache type documented in this encounter [facility] note* Diagnosis Costochondritis- Primary Tietze's disease documented in this encounter [facility] note* Diagnosis Nausea vomiting and diarrhea- Primary Diarrhea documented in this encounter [facility] noteNo assessment information availableWAshtab[facility] Work Phone: [facility] [place] [facility]* Diagnosis Onset Date Resolution Status Contraception [facility]u [facility]* Diagnosis Nausea- Primary Nausea alone documented in this encounter [facility] note* Diagnosis Wellness examination- Primary documented in this encounter [facility] note* Diagnosis Acute hip pain, right- Primary documented in this encounter [facility] note* Diagnosis Exposure to SARS-associated coronavirus- Primary documented in this encounter [facility] note* Diagnosis Acute otitis media, left- Primary Unspecified otitis media Sore throat Acute pharyngitis documented in this encounter [facility] note* Diagnosis Wellness examination- Primary documented in this encounter [facility] note* Diagnosis Pain of right lower extremity- Primary documented in this encounter [facility] note* Diagnosis Headache, unspecified headache type- Primary documented in this encounter [facility] note* Diagnosis URI, acute- Primary Acute upper respiratory infections of unspecified site documented in this encounter [facility] note* Diagnosis Wellness examination- Primary Family history of hypothyroidism Family history of other endocrine and metabolic diseases Right leg pain Pain in limb [facility]* Diagnosis Flu-like symptoms- Primary Other general symptoms documented in this encounter [facility] [place] [facility]* Diagnosis Sore throat- Primary Acute pharyngitis Acute pharyngitis, unspecified etiology [facility] [place] [facility] Diagnosis Rhinosinusitis- Primary Unspecified sinusitis (chronic) documented [facility] [place] [facility]* Diagnosis Screening-pulmonary TB- Primary Screening examination for pulmonary tuberculosis [facility] Attachments The following attachments cannot be sent through Care Everywhere. * : When to Call (After 20 Weeks): General Info (Jordanian) * Round Ligament Pain (Jordanian) * : Abdominal Pain (Jordanian) [facility] Author Glendy Arvizu [facility] Note Date/Time November 14, 2024 12:0 3pm [facility] [address], [address] [place] [address] OFFICE VISIT Date of Service: 11/14/24 MR#: [id number] Acct: [id number] Name: NAN MEYERS Rep #: [id number] : 2000 Provider: NURYS Arvizu Age/Sex: 24/F Location[place] [facility] [place] Status: Signed Intake Vital Signs 09/16/24 11:33 11/02/24 09:08 11/14/24 11:40 Height 5 ft 5 ft 5 ft Weight: 143 lb 8 oz BMI 28.0 BP 128/71 H Intake Visit Reasons: 17wk ob Chief Complaint: 17wk OB Filler Shredding 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 ACOG [...] + @ NOB. Treated and vomited med. Amo Rx sent and zofram prior. (2) History of ectopic : Status: Acute Comment: 09/08/20 - surgery by , was in right ovary and still has both tubes. (3) Supervision of high-risk : Status: Acute Qualifiers: Trimester: second trimester Qualified Code(s): O09.92 - Supervision of high risk , unspecified, second trimester Comment: [id number], KELTON 04/23/25, BF: Fausto (4) : Status: [...] Cosigner Signature: Date (if applicable) CC: ~ [facility] Work Phone: Progress note Author Nereida Chou [facility] Note Date/Time January 09, 2025 11:04am [facility] [address], [address] [place] [address] OFFICE VISIT Date of Service: 01/09/25 MR#: [id number] Acct: [id number] Name: NAN MEYERS Rep #: [id number] : 2000 Provider: Dr. Greg Chou MD Age/Sex: 24/F Location: [facility] [place] Status: Signed Intake Vital Signs 10/15/24 08:32 12/12/24 13:48 01/09/25 10:32 Height 5 ft 5 ft 5 ft Weight: 160 lb 9 oz BMI 31.4 BP 116/70 Intake Visit Reasons: 25 wk ob Filler Shredding Machine Loader Required: No Is patient in pain?: No [...] baby current occupational status: employed current occupation: [employer] current occupational exposures/hazards: No pets and animals: [...] physical activity do you participate in: none christopher/congregational: None seatbelt use: always do you feel safe at home: Yes additional social history: BF: Fausto - [employer] History 2 Elective abortions Hx Para 0 [...] is considering moving to a practice in [place] due to moving to that area. 12/12/24 [...] Monitoring, Signs and Symptoms of Preeclampsia and [place] [employer] Results POC Urinalysis 2 Dip (Clinic) [...] + @ NOB. Treated and vomited med. Amo Rx sent and zofram prior. (2) History of ectopic : Status: Acute Comment: 09/08/20 - surgery by [facility], was in right ovary and still has both tubes. (3) Supervision of high-risk : Status: Acute Qualifiers: Trimester: second trimester Qualified Code(s): O09.92 - Supervision of high risk , unspecified, second trimester Comment: [id number], KELTON 04/23/25, BF: Fausto (4) : Status: [...] Cosigner Signature: Date (if applicable) CC: ~ [facility] Work Phone: Progress note Author Negrita Vital [facility] Note Date/Time January 27, 2025 10:01am [facility] [address] [place] [address], [address] [place] [address] OFFICE VISIT Date of Service: 01/27/25 MR#: [id number] Acct: [id number] Name: NAN MEYERS Rep #: [id number] : 2000 Provider: DEBORAH Vital Age/Sex: 25/F Location: [facility] [place] Status: Signed Intake Vital Signs 12/12/24 13:21 12/12/24 13:48 01/09/25 10:32 01/27/25 09:50 Height 5 ft 5 ft 5 ft 5 ft Weight: 160 lb 9 oz 162 lb 3 oz BMI 31.4 31.6 BP 116/70 122/71 H Intake Visit Reasons: 28 WK OB/GLUCOSE Filler Shredding Machine Loader Required: No Is patient in pain?: No [...] baby current occupational status: employed current occupation: [employer] current occupational exposures/hazards: No pets and animals: [...] physical activity do you participate in: none christopher/congregational: None seatbelt use: always do you feel safe at home: Yes additional social history: BF: Fausto - [employer] History 2 Elective abortions Hx Para 0 [...] is considering moving to a practice in [place] due to moving to that area. 12/12/24 [...] Monitoring, Signs and Symptoms of Preeclampsia and [place] [employer] ROS Const Reports system reviewed and [...] high risk , unspecified, second trimester Comment: [id number], KELTON 04/23/25, BF: [place] (2) : Status: [...] + @ NOB. Treated and vomited med. Amo Rx sent and zofram prior. Rpt test [...] 1004 <Electronically signed by Negrita acosta NP TEAMCENTER CONSULTANT-C> Date _ Negrita Vital NP TEAMCENTER CONSULTANT-C Cosigner Signature: Date (if applicable) CC: ~ [facility] Work Phone: Reason for referral (narrative)No reason for referral information availableWAshtabula [facility] Work Phone: Health Concerns Infection Onset Date [...] January 09, 2025 10:18am Supervision of high-risk [facility] 10:18am ADHD January 27, 2025 9:44am Anxiety January 27, 2025 9:44am Chlamydia infection affecting January 27, 2025 9:44am History of ectopic January 072024 9:44am January 27, 2025 9:44am Smoker January 27, 2025 9:44am Supervision of high-risk [facility] 2024 9:44am Chief Complaint Admit Date 13wk [...] January 09, 2025 10:18am Supervision of high-risk [facility] 20[facility] 10:18am ADHD January 27, 2025 9:44am Anxiety January 27, 2025 9:44am Chlamydia infection affecting January 27, 2025 9:44am History of ectopic January 072024 9:44am January 27, 2025 9:44am Smoker January 27, 2025 9:44am Supervision of high-risk [facility] 2024 9:44am ADHD February 10, 2025 2: [...] No January 30, 2023 8:43am Power of Production Cost Estimator No January 8:43am Advance Directive Response Recorded Date/ Time Do you have a Healthcare Power of Production Cost Estimator? No November 02, 2024 9:36am Reason for Referral Specialty Diagnoses / Procedures Referred By Contac t Referred To Contact [facility] Diagnoses Right leg pain Procedures CONSULT TO PHYSICAL THERAPY PHYSICAL THERAPY EVALUATION HIGH COMPLEX 45 MINS Marisa William, PRESS SMITH HELPER.TABLET TECHNICIAN [address] [place] [address] [facility] [address] [place] [address] Referral ID Status Reason Start Date Expiration Date Visits Requested Visits Authorized [id number] Pending Review Auto-Generat ed Referral 05/10/2024 05/10/2025 [...] or prosecute any alcohol or drug abuse patient.[facility] Hospital[facility] the event this information is protected by the Federal Confidentiality of Alcohol and Drug Abuse Patient Records regulations: The Federal rules restrict any use of the information to criminally investigate or prosecute any alcohol or drug abuse patient.[facility] HospitalIn the event this information is protected by the Federal Confidentiality of Alcohol and Drug Abuse Patient Records regulations: The Federal rules restrict any use of the information to criminally investigate or prosecute any alcohol or drug abuse patient.[facility] the event this information is protected by the Federal Confidentiality of Alcohol and Drug Abuse Patient Records regulations: The Federal rules restrict any use of the information to criminally investigate or prosecute any alcohol or drug abuse patient.[facility] Hospital[facility] the event this information is protected by the Federal Confidentiality of Alcohol and Drug Abuse Patient Records regulations: The Federal rules restrict any use of the information to criminally investigate or prosecute any alcohol or drug abuse patient.[facility] HospitalIn the event this information is protected by the Federal Confidentiality of Alcohol and Drug Abuse Patient Records regulations: The Federal rules restrict any use of the information to criminally investigate or prosecute any alcohol or drug abuse patient.[facility] the event this information is protected by the Federal Confidentiality of Alcohol and Drug Abuse Patient Records regulations: The Federal rules restrict any use of the information to criminally investigate or prosecute any alcohol or drug abuse patient.[facility] the event this information is protected by the Federal Confidentiality of Alcohol and Drug Abuse Patient Records regulations: The Federal rules restrict any use of the information to criminally investigate or prosecute any alcohol or drug abuse patient.[facility] HospitalIn the event this information is protected [...] or prosecute any alcohol or drug abuse patient.[facility] HospitalIn the event this information is protected by the Federal Confidentiality of Alcohol and Drug Abuse Patient Records regulations: The Federal rules restrict any use of the information to criminally investigate or prosecute any alcohol or drug abuse patient.[facility] HospitalIn the event this information is protected by the Federal Confidentiality of Alcohol and Drug Abuse Patient Records regulations: The Federal rules restrict any use of the information to criminally investigate or prosecute any alcohol or drug abuse patient.[facility] the event this information is protected by the Federal Confidentiality of Alcohol and Drug Abuse Patient Records regulations: The Federal rules restrict any use of the information to criminally investigate or prosecute any alcohol or drug abuse patient.[facility] HospitalIn the event this information is protected by the Federal Confidentiality of Alcohol and Drug Abuse Patient Records regulations: The Federal rules restrict any use of the information to criminally investigate or prosecute any alcohol or drug abuse patient.[facility] the event this information is protected by the Federal Confidentiality of Alcohol and Drug Abuse Patient Records regulations: The Federal rules restrict any use of the information to criminally investigate or prosecute any alcohol or drug abuse patient.[facility] HospitalIn the event this information is protected by the Federal Confidentiality of Alcohol and Drug Abuse Patient Records regulations: The Federal rules restrict any use of the information to criminally investigate or prosecute any alcohol or drug abuse patient.[facility]In the event this information is protected by the Federal Confidentiality of Alcohol and Drug Abuse Patient Records regulations: The Federal rules restrict any use of the information to criminally investigate or prosecute any alcohol or drug abuse patient.[facility] the event this information is protected by the Federal Confidentiality of Alcohol and Drug Abuse Patient Records regulations: The Federal rules restrict any use of the information to criminally investigate or prosecute any alcohol or drug abuse patient.[facility] HospitalIn the event this information is protected by the Federal Confidentiality of Alcohol and Drug Abuse Patient Records regulations: The Federal rules restrict any use of the information to criminally investigate or prosecute any alcohol or drug abuse patient.[facility] HospitalIn the event this information is protected by the Federal Confidentiality of Alcohol and Drug Abuse Patient Records regulations: The Federal rules restrict any use of the information to criminally investigate or prosecute any alcohol or drug abuse patient.[facility]In the event this information is protected by the Federal Confidentiality of Alcohol and Drug Abuse Patient Records regulations: The Federal rules restrict any use of the information to criminally investigate or prosecute any alcohol or drug abuse patient.[facility] HospitalIn the event this information is protected by the Federal Confidentiality of Alcohol and Drug Abuse Patient Records regulations: The Federal rules restrict any use of the information to criminally investigate or prosecute any alcohol or drug abuse patient.[facility] HospitalIn the event this information is protected by the Federal Confidentiality of Alcohol and Drug Abuse Patient Records regulations: The Federal rules restrict any use of the information to criminally investigate or prosecute any alcohol or drug abuse patient.[facility]In the event this information is protected by the Federal Confidentiality of Alcohol and Drug Abuse Patient Records regulations: The Federal rules restrict any use of the information to criminally investigate or prosecute any alcohol or drug abuse patient.[facility] HospitalIn the event this information is protected by the Federal Confidentiality of Alcohol and Drug Abuse Patient Records regulations: The Federal rules restrict any use of the information to criminally investigate or prosecute any alcohol or drug abuse patient.[facility] HospitalIn the event this information is protected by the Federal Confidentiality of Alcohol and Drug Abuse Patient Records regulations: The Federal rules restrict any use of the information to criminally investigate or prosecute any alcohol or drug abuse patient.[facility] HospitalIn the event this information is protected by the Federal Confidentiality of Alcohol and Drug Abuse Patient Records regulations: The Federal rules restrict any use of the information to criminally investigate or prosecute any alcohol or drug abuse patient.[facility] HospitalIn the event this information is protected by the Federal Confidentiality of Alcohol and Drug Abuse Patient Records regulations: The Federal rules restrict any use of the information to criminally investigate or prosecute any alcohol or drug abuse patient.[facility] HospitalIn the event this information is protected by the Federal Confidentiality of Alcohol and Drug Abuse Patient Records regulations: The Federal rules restrict any use of the information to criminally investigate or prosecute any alcohol or drug abuse patient.[facility] HospitalIn the event this information is protected by the Federal Confidentiality of Alcohol and Drug Abuse Patient Records regulations: The Federal rules restrict any use of the information to criminally investigate or prosecute any alcohol or drug abuse patient.[facility] HospitalIn the event this information is protected by the Federal Confidentiality of Alcohol and Drug Abuse Patient Records regulations: The Federal rules restrict any use of the information to criminally investigate or prosecute any alcohol or drug abuse patient.[facility] HospitalIn the event this information is protected by the Federal Confidentiality of Alcohol and Drug Abuse Patient Records regulations: The Federal rules restrict any use of the information to criminally investigate or prosecute any alcohol or drug abuse patient.[facility] HospitalIn the event this information is protected by the Federal Confidentiality of Alcohol and Drug Abuse Patient Records regulations: The Federal rules restrict any use of the information to criminally investigate or prosecute any alcohol or drug abuse patient.[facility] HospitalIn the event this information is protected by the Federal Confidentiality of Alcohol and Drug Abuse Patient Records regulations: The Federal rules restrict any use of the information to criminally investigate or prosecute any alcohol or drug abuse patient.[facility] HospitalIn the event this information is protected by the Federal Confidentiality of Alcohol and Drug Abuse Patient Records regulations: The Federal rules restrict any use of the information to criminally investigate or prosecute any alcohol or drug abuse patient.[facility] HospitalIn the event this information is protected by the Federal Confidentiality of Alcohol and Drug Abuse Patient Records regulations: The Federal rules restrict any use of the information to criminally investigate or prosecute any alcohol or drug abuse patient.[facility] HospitalIn the event this information is protected by the Federal Confidentiality of Alcohol and Drug Abuse Patient Records regulations: The Federal rules restrict any use of the information to criminally investigate or prosecute any alcohol or drug abuse patient.[facility] HospitalIn the event this information is protected by the Federal Confidentiality of Alcohol and Drug Abuse Patient Records regulations: The Federal rules restrict any use of the information to criminally investigate or prosecute any alcohol or drug abuse patient.[facility] Reason for Visit (unrecogniz ed section [...] Contact Cher Schultz MD [address] [place] [address] Phone: tel: fax: [address] [address] Referral ID Status Reason Start Date Expiration Date Visits Re quested Visits Authorized [id number] Care Teams (unrecognized sec tion and content) Territory Account Executive Relationship Specialty Start Date End Date Unique Rivas MD [address] [place], [place] [id number] PCP - General Pediatrics 07/22/13 Territory Account Executive Relationship Specialty Start Date End Date Unique Rivas MD [address] [place], [place] [id number] PCP - General Pediatrics 07/22/13 Territory Account Executive Relationship Specialty Start Date End Date Unique Rivas MD [address] [place] [address] PCP - General Pediatrics 07/22/13 Territory Account Executive Relationship Specialty Start Date End Date Unique Rivas MD [address] [place] [address] PCP - General Pediatrics 07/22/13 Territory Account Executive Relationship Specialty Start Date End Date Unique Rivas MD [address] [place] [address] PCP - General Pediatrics 07/22/13 Territory Account Executive Relationship Specialty Start Date End Date Unique Rivas MD [address] [place] [address] PCP - General Pediatrics 07/22/13 Territory Account Executive Relationship Specialty Start Date End Date Unique Rivas MD [address] [place] [address] PCP - General Pediatrics 07/22/13 Territory Account Executive Relationship Specialty Start Date End Date Unique Rivas MD [address] [place] [address] PCP - General Pediatrics 07/22/13 Territory Account Executive Relationship Specialty Start Date End Date Unique Rivas MD [address] [place] [address] PCP - General Pediatrics 07/22/13 Territory Account Executive Relationship Specialty Start Date End Date Unique Rivas MD [address] [place] [address] PCP - General Pediatrics 07/22/13 Territory Account Executive Relationship Specialty Start Date End Date Unique Rivas MD [address] [place] [address] PCP - General Pediatrics 07/22/13 Team Status: [...] Provider, Refer ring Provider Active Negrita Vital TEAMCENTER CONSULTANT, TEAMCENTER CONSULTANT-C Attending Provider Active Team Status: Inactive [...] CNM Attending Provider, Referring Pro vider Active Territory Account Executive Relationship Specialty Start Date End Date Unique Rivas MD [address] [place] [address] PCP - General Pediatrics 07/22/13 Territory Account Executive Relationship Specialty Start Date End Date Unique Rivas MD [address] [place] [address] PCP - General Pediatrics 07/22/13 Territory Account Executive Relationship Specialty Start Date End Date Unique Rivas MD [address] [place] [address] PCP - General Pediatrics 07/22/13 Territory Account Executive Relationship Specialty Start Date End Date Marisa William APRN.TABLET TECHNICIAN [address] [place] [address] PCP - General Family Medicine 08/30/23 Territory Account Executive Relationship Specialty Start Date End Date Marisa William APRN.TABLET TECHNICIAN [address] [facility] [place] [address] PCP - General Family Medicine 08/30/23 Territory Account Executive Relationship Specialty Start Date End Date Marisa William, PRESS SMITH HELPER.TABLET TECHNICIAN [address] [facility] [place] [place] [address] PCP - General Family Medicine 08/30/23 Territory Account Executive Relationship Specialty Start Date End Date Marisa William, PRESS SMITH HELPER.TABLET TECHNICIAN [address] [place] [address] PCP - General Family Medicine 08/30/23 Territory Account Executive Relationship Specialty Start Date End Date Marisa William, PRESS SMITH HELPER.TABLET TECHNICIAN [address] [place] [address] PCP - General Family Medicine 08/30/23 Territory Account Executive Relationship Specialty Start Date End Date Marisa William, PRESS SMITH HELPER.TABLET TECHNICIAN [address] [place] [address] PCP - General Family Medicine 08/30/23 Territory Account Executive Relationship Specialty Start Date End Date Marisa William, PRESS SMITH HELPER.TABLET TECHNICIAN [address] [place] [address] PCP - General Family Medicine 08/30/23 Territory Account Executive Relationship Specialty Start Date End Date Marisa William, PRESS SMITH HELPER.TABLET TECHNICIAN [address] [place] [address] PCP - General Family Medicine 08/30/23 Territory Account Executive Relationship Specialty Start Date End Date Marisa William, PRESS SMITH HELPER.TABLET TECHNICIAN [address] [place] [address] PCP - General Family Medicine 08/30/23 Team [...] 2024 End: September 16, 2024 Dr. Nereida hCou MD Attending Provider Active Start: September 16, [...] 2024 End: October 15, 2024 Negrita Vital TEAMCENTER CONSULTANT, TEAMCENTER CONSULTANT-C Attending Provider Active Start: October 15, [...] End: October 15, 2024 Negrita Vital NP, TEAMCENTER CONSULTANT-C Attending Provider Active Start: October 15, 2024 End: October 15, 2024 Team Status: Inactive Member Role/Relationship Status Dates Marisa Meera William , TEAMCENTER CONSULTANT-C Primary Care Provider Acti ve Start: November 02, 2024 End: November 02, 2024 Dr. Mike Dill DO Emergency Provider Active Start: November 02, 2024 End: November 02, 2024 Team Status: Inactive Member Role/Relationship Status Dates Marisa William TEAMCENTER CONSULTANT-C Primary Care Provider Acti ve Start: November [...] 2024 End: November 14, 2024 Marisa William TEAMCENTER CONSULTANT-C Primary Care Provider Acti ve Start: November 14, 2024 End: November 14, 2024 Team Status: Inactive Member Role/Relationship Status Dates Marisa William TEAMCENTER CONSULTANT-C Primary Care Provider Acti ve Start: November [...] 2024 End: December 12, 2024 Marisa William TEAMCENTER CONSULTANT-C Primary Care Provider Acti ve Start: December 12, 2024 End: December 12, 2024 Team Status: Inactive Member Role/Relationship Status Dates Dr. Uinque iRvas MD Primary Care Provider Active Start: September [...] 02, 2024 End: October 02, 2024 Dr. Neredia Chou MD Attending Provider Active Start: October [...] End: October 15, 2024 Negrita Vital NP, TEAMCENTER CONSULTANT-C Attending Provider Active Start: October 15, [...] 2025 End: January 09, 2025 Marisa William TEAMCENTER CONSULTANT-C Primary Care Provider Acti ve Start: January 09, 2025 End: January 09, 2025 Team Status: Active Member Role/Relationship Status Dates Marisa William TEAMCENTER CONSULTANT-C Primary care physician Act jenn Team Status: Inactive Member Role/Relationship Status Dates Dr. Unique Rivas MD Primary care physician Activ e Start: October 15, 2024 End: October 15, 2024 Dr. Unique Rivas MD Referring Provider Active Start: October 15, 2024 End: October 15, 2024 Negrita Vital NP, TEAMCENTER CONSULTANT-C Attending physician Active Start: October 15, 2024 End: October 15, 2024 Team Status: Inactive Member Role/Relationship Status Dates Marisa William TEAMCENTER CONSULTANT-C Primary care physician Act jenn Start: November [...] End: November 14, 2024 Marisa William , TEAMCENTER CONSULTANT-C Primary care physician Act jenn Start: November 14, 2024 End: November 14, 2024 Team Status: Inactive Member Role/Relationship Status Dates Marisa William , TEAMCENTER CONSULTANT-C Primary care physician Act jenn Start: November [...] End: December 12, 2024 Marisa William , TEAMCENTER CONSULTANT-C Primary care physician Act jenn Start: December 12, 2024 End: December 12, 2024 Team Status: Inactive Member Role/Relationship Status Dates Dr. Unique Rivas MD Referring Provider Active Start: January 09, 2025 End: January 09, 2025 Dr. Nereida Chou MD Attending physician Active Start: January 09, 2025 End: January 09, 2025 Marisa William TEAMCENTER CONSULTANT-C Primary care physician Act jenn Start: January 09, 2025 End: January 09, 2025 Team Status: Inactive Member Role/Relationship Status Dates Marisa William TEAMCENTER CONSULTANT-C Primary care physician Act jenn Start: January 09, 2025 End: January 09, 2025 Dr. Nereida Chou MD Attending physician Active Start: January 09, 2025 End: January 09, 2025 Team Status: Inactive Member Role/Relationship Status Dates Marisa William , TEAMCENTER CONSULTANT-C Primary care physician Act jenn Start: January 27, 2025 End: January 27, 2025 Marisa William TEAMCENTER CONSULTANT-C Referring Provider Active Start: January 27, 2025 End: January 27, 2025 Negrita Vital NP, TEAMCENTER CONSULTANT-C Attending physician Active Start: January 27, 2025 [...] section and content) DATE CREATED AUTHOR 07/31/2024 [facility] DATE CREATED AUTHOR AUTHOR'S ORGANIZ ATION 12/21/2024 [facility] nt DATE CREATED AUTHOR AUTHOR'S ORGANIZ ATION 02/25/2025 [facility]3] DATE CREATED AUTHOR AUTHOR'S ORGANIZ ATION 03/12/2025 [facility] DATE CREATED AUTHOR AUTHOR'S ORGANIZ ATION 03/17/2025 [facility] FOR RECORDS PERTAINING TO PATIENTS WHO [...] BE BASED ON THE PRIMARY CLINICAL RECORDS. [employer] provides no warranty or guarantee of the accuracy or completeness of information in this document.
[2025-04-18 19:28] VITALS: RESP 16; TEMP 36.7; O2SAT 100
[2025-04-18 19:29] VITALS: BP 135/81; PULSE 110; O2SAT 96
[2025-04-18 19:49] VITALS: BMI 36.5
[2025-04-18 20:33] LABS: Hematocrit 30.4 % (37-47); Hemoglobin 10.1 g/dL (12.0-15.0); Immature Granulocytes Count 0.050 X10^3/uL (0.0-0.0); Mean Corp Hgb Conc 33.2 g/dL (32-36); Mean Corpuscular Volume 81.1 fL (81-99); Mean Platelet Vol. 12.6 fl (6.2-12.0); NRBC Flagged by Analyzer 0 % (0-5); Platelet Count 255 K/mm3 (150-450); RBC Distribution Width CV 18.3 % (11.6-14.6); RBC Distribution Width SD 54.2 fl (35.1-43.9); Red Blood Count 3.75 M/mm3 (4.2-5.4); White Blood Count 9.1 K/mm3 (4.4-11.0)
[2025-04-18 21:13] LABS: Syphilis Antibodies Nonreactive (Nonreactive)
[2025-04-18 21:43] LABS: AST(SGOT) 21 U/L (<=31); Alanine Aminotransfer ALT/SGPT 16 U/L (<=34); Albumin, Serum 3.5 g/dL (3.5-5.0); Alkaline Phosphatase 168 U/L (35-104); Anion Gap 16 (5-15); BUN 10 mg/dL (4-19); BUN/Creat Ratio 19.3 RATIO (10-20); Calcium,Total 9.5 mg/dL (7.6-11.0); Carbon Dioxide 18.2 mmol/L (21.0-32.0); Chloride 102 mmol/L (98-108); Estimated Creatinine Clearance 156.62 ml/min (50-250); Globulin 2.5 g/dL (2.2-4.2); Glucose 101 mg/dL (70-99); Potassium 4.2 mmol/L (3.3-5.1)
[2025-04-18 22:00] VITALS: BP 127/70; PULSE 90; RESP 16; TEMP 36.1
[2025-04-18 22:01] VITALS: PULSE 93; O2SAT 98
[2025-04-19] VITALS (62 sets, daily range): BP systolic 103–151; BP diastolic 57–108; PULSE 80–134; RESP 16–24; TEMP 36.2–37.3; O2SAT 91–100
[2025-04-19] MEDS: Lactated Ringers 1,000 ML 999 ML IV ×2 (01:23→04:54)
[2025-04-19] MEDS: fentaNYL-bupivacaine (epidural) 100 ML BAG EPIDURAL ×3 (06:25→16:47)
[2025-04-19] MEDS: Oxytocin 15 Units/NS 250ml 15 UNITS/250 ML IV.SOLN 2 UNITS IV (06:35)
--- NOTE | 2025-04-19 08:40 | HP.PCM.OB_ITS ---
HPI - General General Date of Admission: 04/18/25 Date of Service: 04/19/25 HPI Narrative NAN FLORES, is a 25 F at 39.3 who presents to unit for induction of labor for possible cholestasis. Plan was for cytotec/pit and campuzano Maternal Data Information KELTON Calculator Estimated Delivery Date Method Current WG Current Estimate 04/23/25 LMP (Certain) 39w 3d Other Estimates 04/23/25 Ultrasound #1 39w 3d Final KELTON: 04/23/25 Final KELTON Source: US >20 weeks Gestational age: 39.3 [facility] Medical History (Updated 04/19/25 @ 08:44 by Glendy Arvizu CNM) Smoker Chlamydia infection affecting Anemia affecting History of ectopic ADHD Anxiety , ectopic, tubal Home Medications ?Medication ?Instructions ?Recorded ?Last Taken ?Type docosahexaenoic acid 200 mg 200 mg PO DAILY 08/27/24 Unknown History capsule ( DHA) Allergy/AdvReac Type Severity Reaction Status Date / Time No Known Allergies Allergy Verified 04/19/25 04:19 Family History Mother Thyroid disorder Adopted Hypertension Hyperlipidemia Grandmother Hypertension Grandfather Hypertension Father Asthma Surgical History History of ectopic Social History adopted: No household members: significant other and other details: Brother & his baby current occupational status: employed current occupation: [employer] current occupational exposures/hazards: No pets and animals: Yes (Not managing litterbox) pets and animals: cat(s) and dog(s) history of recent travel: No sexually active: Yes Smoking Status: Former smoker quit date: 08/25/24 Electronic Cigarette Use: with nicotine quit status: quit date established alcohol intake: never substance use type: does not use well-balanced diet: daily or most days caffeine: Yes Type: carbonated beverages Number of servings: 1 eating out: 1-3 times/week during the past year weight has: remained stable what type of physical activity do you participate in: none christopher/sikh: None seatbelt use: always do you feel safe at home: Yes additional social history: BF: Fausto - [employer] History 2 Elective abortions Hx Para 0 Spontaneous abortions 0 Hx # Term Pregnancies Ectopic pregnancies 1 Hx # Pregnancies Multiple births # of living children 0 Past Pregnancies Del. Date Name GA/Weeks Outcome Route Bth Weight Gen Labor Lgth Anesthesia Del Locatn Provider FOB 09/08/20 4 ectopic SM Delivery Date: 09/08/20 Last Updated by: Farzaneh Deal RN Right ovarian tubal Visit Details Expected Delivery Route/Plan Labor Preferences- CB/BF classes: encouraged labor support person: Fausto labor intervention preferences: [] pain management options preferred: epidural cut cord/dad catch: cord : yes PP control planned: discussed discussed possible routes of delivery and associated risks: [] special requests: [] Plans Covid status: [] Flu vaccine: [] Tdap vaccine: [] Rhogam: NA LARC form signed: yes Problem list reviewed and updated with the most current plan of care details and appropriate orders placed. Relevant counseling for the gestational age provided. Continue routine care and follow up unless otherwise noted in visit notes/problem list details OB Flowsheet Initial Weight: Not Recorded Date -?-?-?-?-?-?-?-?-?-?-?-?- EGA Weight BP Urine Prot -?-?-?-?-?-?-?-?-?-?-?-?- Glucose FHR FuHt Pres Dilation -?-?-?-?-?-?-?-?-?-?-?-?- Effaced St Visit Note 09/16/24 -?-?-?-?-?-?-?-?-?-?-?-?- 8w 5d 142 lb 2 oz -?-?-?-?-?-?-?-?-?-?-?-?- 168 -?-?-?-?-?-?-?-?-?-?-?-?- JV- CRL consist ent with LMP. Desires nipt at 10 weeks. JV- CRL consistent with LMP . suspect arcuate shaped uterus. Desires nipt at 10 weeks. 10/15/24 -?-?-?-?-?-?-?-?-?-?-?-?- 12w 6d 143 lb 6 oz 116/70 Nega tive -?-?-?-?-?-?-?-?-?-?-?-?- Negative 147 -?-?-?-?-?-?-?-?-?-?-?-?- MH-No VB. Vomit ed up zithromax for chlamydia. Will retreat and instructed on use of zofran prior. Br US confirm FHT 11/14/24 -?-?-?-?-?-?-?-?-?-?-?-?- 17w 1d 143 lb 8 oz 128/71 Trac e -?-?-?-?-?-?-?-?-?-?-?-?- Negative 150 -?-?-?-?-?-?-?-?-?-?-?-?- KW- ER follow up for vaginal bleeding. Dx with possible placenta previa but unsure of severity. still having some spotting in the mornings with occasional cramping. 10 dip-neg. Did get the rest of the atb for chlamydia in the ER and was able to keep it down. will repeat GCC today. Discussed importance of MFM anatomy US to look further at placenta. Said she is waiting for insurance- discussed options, will consider and schedule with MFM. Also is considering jerry hodge to a practice in [place] due to moving to that area. 12/12/24 -?-?-?-?-?-?-?-?-?-?-?-?- 21w 1d 154 lb 6 oz 118/66 Nega tive -?-?-?-?-?-?-?-?-?-?-?-?- Negative 145 -?-?-?-?-?-?-?-?-?-?-?-?- JV- still having some spotting. anatomy shows clot at the lower uterine segment. She will need to return for further views and for cervical length. She denies cramping. Starting to feel some small movements and shifts 01/09/25 -?-?-?-?-?-?-?-?-?-?-?-?- 25w 1d 160 lb 9 oz 116/70 Nega tive -?-?-?-?-?-?-?-?-?-?-?-?- Negative 140 25 -?-?-?-?-?-?-?-?-?-?-?-?- SM- no vb feels damp sometimes over the past two weeks good fm. SM- no vb feels damp sometim es over the past two weeks good fm. ROM plus sent 01/27/25 -?-?-?-?-?-?-?-?-?-?-?-?- 27w 5d 162 lb 3 oz 122/71 Nega tive -?-?-?-?-?-?-?-?-?-?-?-?- Negative 143 28 -?-?-?-?-?-?-?-?-?-?-?-?- MH-No VB, LOF. G ood FM. Larc. Missed GCT draw time and will return later this week to complete 02/10/25 -?-?-?-?-?-?-?-?-?-?-?-?- 29w 5d 170 lb 128/77 Negative -?-?-?-?-?-?-?-?-?-?-?-?- Negative 144 30 -?-?-?-?-?-?-?-?-?-?-?-?- KW- no vb/lof/ct x. good fm. taking po iron 02/28/25 -?-?-?-?-?-?-?-?-?-?-?-?- 32w 2d 176 lb 5 oz 122/77 Nega tive -?-?-?-?-?-?-?-?-?-?-?-?- Negative 140 33 -?-?-?-?-?-?-?-?-?--?-?-?- JV- pt requests vaginal cultures today. ultrasound shows that clot is now gone. no complaints. 03/12/25 -?-?-?-?-?-?-?-?-?-?-?-?- 34w 0d 176 lb 6 oz 111/76 Nega tive -?-?-?-?-?-?-?-?-?-?-?-?- Negative 140 35 -?-?-?-?-?-?-?-?-?-?-?-?- SM- no vb lof go od fm no regular ctx 03/26/25 -?-?--?-?-?-?-?-?-?-?-?-?- 36w 0d 184 lb 4 oz 123/83 Nega tive -?-?-?-?-?-?-?-?-?-?-?-?- Negative 150 36 -?-?-?-?-?-?-?-?-?-?-?-?- KW- no vb/lof/ct x. good fm. CGG repeated today. GBS today. declines SVE today 04/01/25 -?-?-?-?-?-?-?-?-?-?-?-?- 36w 6d 185 lb 9 oz 128/75 Nega tive -?-?-?-?-?-?-?-?-?-?-?-?- Negative 145 37 Cephalic 0 -?-?-?-?-?-?-?-?-?-?-?-?- KW- no vb/lof/ct x. good fm. GCC and GBS neg. 04/09/25 -?-?-?-?-?-?-?-?-?-?-?-?- 38w 0d 184 lb 9 oz 121/79 Nega tive -?-?-?-?-?-?-?-?-?-?-?-?- Negative 144 38 Cephalic 1 -?-?-?-?-?-?-?-?-?-?-?-?- 30 -4 KV- Good F M. No ctx/LOF/VB. Growth US yesterday. 04/16/25 -?-?-?-?-?-?-?-?-?-?-?-?- 39w 0d 185 lb 134/78 Negative -?-?-?-?-?-?-?-?-?-?-?-?- Negative 125 39 Cephalic 1 -?-?-?-?--?-?-?-?-?-?-?-?- 30 -3 KV- Good F M. No ctx/LOF/VB. Itching has gotten much worse since last week. Will schedule induction. NST FHR Rate Baby A Baseline: 140 Variability:: Moderate Accelerations:: 15 x 15 Decelerations:: None NST Reactive:: Yes FHR Category:: Category I Uterine Activity:: 2-4 ROS Constitutional Constitutional: Denies change in weight, fatigue, fever(s), headache(s), poor appetite or weakness Eyes Eyes: Denies blurry vision, change in vision, floaters, seeing flashes or spots in vision ENT HEENT: Denies dizziness, headache(s), loss taste/smell or sore throat Cardiovascular Cardiovascular: Denies chest pain, dizziness, dyspnea, irregular heart rhythm, lightheadedness, palpitations or rapid heart rate Respiratory/Chest Respiratory/Chest: Denies change in mental status, chest tightness, cough, dyspnea or breast pain Gastrointestinal Gastrointestinal: Denies anorexia, chewing difficulty, constipation, diarrhea or weight changes Genitourinary Genitourinary: Denies difficulty urinating, dysuria, flank pain, genital pain, urinary frequency or urinary urgency Musculoskeletal Musculoskeletal: Denies back pain, difficulty walking, extremity pain, joint pain, muscle cramps or muscle weakness Integumentary Integumentary: Denies lesions or unusual bruising Neurologic Neurologic: Denies abnormal movements, abnormal speech, dizziness, numbness, seizure-like activity, syncope or weakness Psychiatric Psychiatric: Denies behavioral changes, change in appetite, confusion, depression, homicidal ideation, suicidal ideation or suicidal thoughts Endocrine Endocrinology: Denies excessive sweating, polydipsia or polyuria Hematologic/Lymphatic Hematologic/Lymphatic: Denies anemia Allergic/Immunologic Allergic/Immunologic: Denies itchy eyes, lip swelling, throat swelling, tongue swelling or wheezing Vital Signs Vital Signs Vital Signs: 04/18/25 19:28 04/18/25 19:28 04/18/25 19:28 Temperature Temperature Source Temporal Pulse Rate Respiratory Rate 16 Blood Pressure BP Systolic BP Diastolic Pulse Ox 100 04/18/25 19:28 04/18/25 19:28 04/18/25 19:28 Temperature 98.1 F Temperature Source Temporal Pulse Rate Respiratory Rate 16 Blood Pressure BP Systolic BP Diastolic Pulse Ox 04/18/25 19:28 04/18/25 19:28 04/18/25 19:29 Temperature 98.1 F Temperature Source Pulse Rate Respiratory Rate Blood Pressure 135/81 H BP Systolic 135 BP Diastolic 81 Pulse Ox 100 04/18/25 19:29 04/18/25 19:29 04/18/25 22:00 Temperature Temperature Source Temporal Pulse Rate 110 H Respiratory Rate Blood Pressure BP Systolic BP Diastolic Pulse Ox 96 04/18/25 22:00 04/18/25 22:00 04/18/25 22:00 Temperature Temperature Source Pulse Rate 90 Respiratory Rate 16 Blood Pressure 127/70 H BP Systolic 127 BP Diastolic 70 Pulse Ox 04/18/25 22:00 04/18/25 22:01 04/18/25 22:01 Temperature 97.0 F L Temperature Source Pulse Rate 93 Respiratory Rate Blood Pressure BP Systolic BP Diastolic Pulse Ox 98 04/19/25 01:11 04/19/25 01:11 04/19/25 01:11 Temperature Temperature Source Temporal Pulse Rate 100 Respiratory Rate Blood Pressure 140/90 H BP Systolic 140 BP Diastolic 90 Pulse Ox 04/19/25 01:11 04/19/25 01:11 04/19/25 01:12 Temperature 97.1 F L Temperature Source Pulse Rate 101 H Respiratory Rate 16 Blood Pressure BP Systolic BP Diastolic Pulse Ox 04/19/25 01:12 04/19/25 02:32 04/19/25 02:32 Temperature Temperature Source Pulse Rate 96 Respiratory Rate Blood Pressure 141/77 H BP Systolic 141 BP Diastolic 77 Pulse Ox 98 04/19/25 02:32 04/19/25 02:32 04/19/25 02:32 Temperature 97.6 F L Temperature Source Temporal Pulse Rate Respiratory Rate 16 Blood Pressure BP Systolic BP Diastolic Pulse Ox 04/19/25 04:21 04/19/25 04:21 04/19/25 04:21 Temperature Temperature Source Temporal Pulse Rate 104 H Respiratory Rate Blood Pressure BP Systolic BP Diastolic Pulse Ox 98 04/19/25 04:21 04/19/25 04:21 04/19/25 04:22 Temperature 97.6 F L Temperature Source Pulse Rate Respiratory Rate 20 H Blood Pressure 128/83 H BP Systolic 128 BP Diastolic 83 Pulse Ox 04/19/25 04:22 04/19/25 06:11 04/19/25 06:11 Temperature Temperature Source Pulse Rate 105 H 134 H Respiratory Rate Blood Pressure 144/90 H BP Systolic 144 BP Diastolic 90 Pulse Ox 04/19/25 06:11 04/19/25 06:17 04/19/25 06:17 Temperature Temperature Source Pulse Rate 116 H Respiratory Rate 24 H Blood Pressure 138/79 H BP Systolic 138 BP Diastolic 79 Pulse Ox 04/19/25 06:17 04/19/25 06:20 04/19/25 06:20 Temperature Temperature Source Pulse Rate 118 H Respiratory Rate 24 H Blood Pressure BP Systolic BP Diastolic Pulse Ox 98 04/19/25 06:23 04/19/25 06:23 04/19/25 06:23 Temperature Temperature Source Pulse Rate 104 H Respiratory Rate 20 H Blood Pressure 118/63 BP Systolic 118 BP Diastolic 63 Pulse Ox 04/19/25 06:25 04/19/25 06:25 04/19/25 06:26 Temperature Temperature Source Pulse Rate 105 H Respiratory Rate Blood Pressure 119/59 L BP Systolic 119 BP Diastolic 59 Pulse Ox 97 04/19/25 06:26 04/19/25 06:27 04/19/25 06:31 Temperature Temperature Source Pulse Rate 102 H 101 H Respiratory Rate 20 H Blood Pressure BP Systolic BP Diastolic Pulse Ox 04/19/25 06:31 04/19/25 06:31 04/19/25 06:31 Temperature Temperature Source Pulse Rate 104 H Respiratory Rate Blood Pressure 111/59 L BP Systolic 111 BP Diastolic 59 Pulse Ox 98 04/19/25 06:31 04/19/25 06:35 04/19/25 06:35 Temperature Temperature Source Pulse Rate 109 H Respiratory Rate 18 Blood Pressure BP Systolic BP Diastolic Pulse Ox 99 04/19/25 06:36 04/19/25 06:36 04/19/25 06:36 Temperature Temperature Source Pulse Rate 106 H Respiratory Rate 20 H Blood Pressure 115/65 BP Systolic 115 BP Diastolic 65 Pulse Ox 04/19/25 06:40 04/19/25 06:40 04/19/25 06:40 Temperature Temperature Source Pulse Rate 110 H Respiratory Rate 18 Blood Pressure BP Systolic BP Diastolic Pulse Ox 99 04/19/25 06:42 04/19/25 06:42 04/19/25 06:42 Temperature Temperature Source Pulse Rate 117 H Respiratory Rate 18 Blood Pressure 117/68 BP Systolic 117 BP Diastolic 68 Pulse Ox 04/19/25 06:45 04/19/25 06:45 04/19/25 06:47 Temperature Temperature Source Pulse Rate 114 H Respiratory Rate 20 H Blood Pressure BP Systolic BP Diastolic Pulse Ox 99 04/19/25 06:48 04/19/25 06:48 04/19/25 07:19 Temperature Temperature Source Pulse Rate 95 Respiratory Rate Blood Pressure 112/67 103/66 BP Systolic 112 103 BP Diastolic 67 66 Pulse Ox 04/19/25 07:19 04/19/25 07:37 04/19/25 07:37 Temperature Temperature Source Pulse Rate 112 H 108 H Respiratory Rate Blood Pressure BP Systolic BP Diastolic Pulse Ox 98 04/19/25 07:38 04/19/25 07:38 04/19/25 07:38 Temperature Temperature Source Pulse Rate 105 H Respiratory Rate Blood Pressure 138/65 H BP Systolic 138 BP Diastolic 65 Pulse Ox 91 04/19/25 07:42 04/19/25 07:42 04/19/25 07:47 Temperature Temperature Source Pulse Rate 107 H 109 H Respiratory Rate Blood Pressure BP Systolic BP Diastolic Pulse Ox 98 04/19/25 07:47 04/19/25 07:50 04/19/25 07:50 Temperature Temperature Source Pulse Rate 111 H Respiratory Rate Blood Pressure 129/91 H BP Systolic 129 BP Diastolic 91 Pulse Ox 99 04/19/25 07:52 04/19/25 07:52 04/19/25 07:54 Temperature Temperature Source Temporal Pulse Rate 114 H Respiratory Rate Blood Pressure BP Systolic BP Diastolic Pulse Ox 98 04/19/25 07:54 04/19/25 07:54 04/19/25 07:57 Temperature 98.4 F Temperature Source Pulse Rate 104 H Respiratory Rate 16 Blood Pressure BP Systolic BP Diastolic Pulse Ox 04/19/25 07:57 04/19/25 08:02 04/19/25 08:02 Temperature Temperature Source Pulse Rate 98 Respiratory Rate Blood Pressure 127/66 H BP Systolic 127 BP Diastolic 66 Pulse Ox 98 04/19/25 08:29 04/19/25 08:29 04/19/25 08:34 Temperature Temperature Source Pulse Rate 93 102 H Respiratory Rate Blood Pressure BP Systolic BP Diastolic Pulse Ox 100 04/19/25 08:34 Temperature Temperature Source Pulse Rate Respiratory Rate Blood Pressure BP Systolic BP Diastolic Pulse Ox 100 Weight Weight: 187 lb Body Mass Index (BMI) 36.5 PRE- weight 142 lb PRE- Body Mass Index 27.8 (BMI) Physical Exam Const alert, oriented x3 and no apparent distress General Appearance: cooperative Orientation / Consciousness: awake HEENT normocephalic Neck full ROM Lymph Lymphatic: no lymphadenopathy noted Chest inspection of chest normal Resp normal respiratory effort and normal air movement Effort and Inspection: able to speak in complete sentences and symmetric chest movement GI soft to palpation and non-tender Inspection: gravid Palpation: soft; Negative for tender external exam normal Back/Spine normal to inspection Extremity normal to inspection and full ROM Skin no rashes or lesions noted Psych mental status grossly normal Appearance: grossly normal Speech: normal speech Labs Labs Labs: Blood Type A POSITIVE Antibody Screen NEGATIVE Hct, (37-47) 30.4 % L Hgb, (12.0-15.0) 10.1 g/dL L Obstetrics Ultrasound Syphilis Total Ab, (Nonreactive) Nonreactive Rubella IgG Antibody, (Nonreactive) REAC Hep Bs Antigen, (Nonreactive) Nonreactive Hepatitis C Antibody, (Nonreactive) Nonreactive Chlamydia DNA (VISHNU), (Negative) Negative N.gonorrhoeae DNA (VISHNU), (Negative) Negative HIV 1&2 Antibody, (Nonreactive) Nonreactive Glucose 1 Hr 50 gm, (70-140) 95 mg/dL Miscellaneous Test, (.) COMMENT Assessment & Plan (1) Encounter for induction of labor: PLAN: Patient presents IOL, plan management for with pitocin/AROM. Pain management: plans epidural. GBS negative. Management of any complications: none I have reviewed the [facility] and made any clinically relevant updates. Dr Garcia aware of assessment, plan and admission. agrees with plan of care (2) Swelling of ankle: (3) Chronic pruritus: COMMENT: bile acids 03/12 wnl (4) Anemia affecting : COMMENT: OTC iron hgb 01/29 9.9 -> 03/12 10.6 -> 12/ 10.7 (5) Chlamydia infection affecting : QUALIFIERS: Trimester: first trimester Qualified Code(s): O98.811 - Other maternal infectious and parasitic diseases complicating , first trimester; A74.9 - Chlamydial infection, unspecified COMMENT: + @ NOB. Treated and vomited med. Slick Rx sent and zofram prior. Rpt test negative (6) History of ectopic : COMMENT: 09/08/20 - surgery by , was in right ovary and still has both tubes. (7) Supervision of high-risk : QUALIFIERS: Trimester: second trimester Qualified Code(s): O09.92 - Supervision of high risk , unspecified, second trimester COMMENT: [id number], KELTON 04/23/25, BF: Fausto (8) : QUALIFIERS: Weeks of gestation: 39 weeks Qualified Code(s): Z3A.39 - 39 weeks gestation of COMMENT: GBS neg, NIPT low risk, growth at 37w6d EFW 3092g 41% AC 64% (9) Smoker: COMMENT: Last smoke: 08/25, Exposed to second hand (10) Anxiety: COMMENT: No meds; stable (11) ADHD: QUALIFIERS: Attention deficit-hyperactivity disorder type: unspecified Qualified Code(s): F90.9 - Attention-deficit hyperactivity disorder, unspecified type COMMENT: No meds currently; [employer] in [employer] Charges/Coding Multi Select Codes Urinary/Genital Urinary/Genital CPT Codes: No Charge
[2025-04-19] MEDS: Lactated Ringers 1,000 ML 200 ML IV ×2 (12:16→15:12)
[2025-04-19] MEDS: Amnioinfusion- 0.9% NS 1,000 ML IV.SOLN. 1000 ML INTRA-UTER (13:38)
--- NOTE | 2025-04-19 14:12 | PCM.PN.BLA ---
Progress Note comfortable with epidural current tracing: FHT: 130 Moderate variability reactive late and variable decelerations category II tracing [place]: 2-3 minutes Contractions Membranes:remains clear SVE:/-2 reviewed tracing abnormalities since last note: in person collaboration with Dr Garcia at this time for Cat II FHT tracing in increased vaginal bleeding. pitocin turned off and repositioned. will reassess for pitocin to be turned back on when appropriate A/P: Continue with position changes Titrate pitocin per protocol Epidural per anesthesia GBS neg Anticipate Dr Garcia aware of above assessment and agrees with plan of care Assessment & Plan Assessment/Plan (1) Encounter for induction of labor: (2) Swelling of ankle: (3) Chronic pruritus: (4) Anemia affecting : (5) Chlamydia infection affecting : QUALIFIERS: Trimester: first trimester Qualified Code(s): O98.811 - Other maternal infectious and parasitic diseases complicating , first trimester; A74.9 - Chlamydial infection, unspecified (6) History of ectopic : (7) Supervision of high-risk : QUALIFIERS: Trimester: second trimester Qualified Code(s): O09.92 - Supervision of high risk , unspecified, second trimester (8) : QUALIFIERS: Weeks of gestation: 39 weeks Qualified Code(s): Z3A.39 - 39 weeks gestation of (9) Smoker: (10) Anxiety: (11) ADHD: QUALIFIERS: Attention deficit-hyperactivity disorder type: unspecified Qualified Code(s): F90.9 - Attention-deficit hyperactivity disorder, unspecified type Multi Select Codes Urinary/Genital Urinary/Genital CPT Codes: No Charge
[2025-04-19] MEDS: Lidocaine 2% (5ml sdv) 5 ML VIAL.MPF 20 ML EPIDURAL (17:25)
[2025-04-19] MEDS: Cefazolin 1 GM/5 ML Vial 2 GM IV (17:25)
[2025-04-19] MEDS: Lactated Ringers 1,000 ML 1000 ML IV (17:25)
[2025-04-19] MEDS: Cefazolin 2 GM in 0.9% Normal Saline (100mL Bag) 100 ML IV (17:25)
--- NOTE | 2025-04-19 17:30 | PCM.PN.BLA ---
Progress Note comfortable with epidural current tracing: FHT: 130 Moderate variability reactive variable decelerations, occasional lates category II tracing, [place]: 2-4 Contractions SVE:/1 reviewed tracing abnormalities since last note: Dr Garcia in room at this time to assess SVE and review strip with deceleration. Pt to hands and knees and prolonged decel not resolving at this time. Decision made for P C/S A/P: Continue with position changes Titrate pitocin per protocol Epidural per anesthesia GBS neg Anticipate PCS Dr Garcia aware of above assessment and agrees with plan of care Assessment & Plan Assessment/Plan (1) Encounter for induction of labor: (2) Swelling of ankle: (3) Chronic pruritus: (4) Anemia affecting : (5) Chlamydia infection affecting : QUALIFIERS: Trimester: first trimester Qualified Code(s): O98.811 - Other maternal infectious and parasitic diseases complicating , first trimester; A74.9 - Chlamydial infection, unspecified (6) History of ectopic : (7) Supervision of high-risk : QUALIFIERS: Trimester: second trimester Qualified Code(s): O09.92 - Supervision of high risk , unspecified, second trimester (8) : QUALIFIERS: Weeks of gestation: 39 weeks Qualified Code(s): Z3A.39 - 39 weeks gestation of (9) Smoker: (10) Anxiety: (11) ADHD: QUALIFIERS: Attention deficit-hyperactivity disorder type: unspecified Qualified Code(s): F90.9 - Attention-deficit hyperactivity disorder, unspecified type Multi Select Codes Urinary/Genital Urinary/Genital CPT Codes: No Charge
[2025-04-19] MEDS: morphine PF (epidural) 5 MG/10 ML Vial IV (18:01)
[2025-04-19] MEDS: fentaNYL 100 MCG/2 ML Ampul IV (18:06)
--- NOTE | 2025-04-19 18:06 | EX.PCM.OBRPT ---
Assessment & Plan (1) Encounter for induction of labor: (2) Swelling of ankle: (3) Chronic pruritus: COMMENT: bile acids 03/12 wnl (4) Anemia affecting : COMMENT: OTC iron hgb 01/29 9.9 -> 03/12 10.6 -> 04/09 10.7 (5) Chlamydia infection affecting : QUALIFIERS: Trimester: first trimester Qualified Code(s): O98.811 - Other maternal infectious and parasitic diseases complicating , first trimester; A74.9 - Chlamydial infection, unspecified COMMENT: + @ NOB. Treated and vomited med. [place] [facility] Rx sent and zofram prior. Rpt test negative (6) History of ectopic : COMMENT: 09/08/20 - surgery by SHANE, was in right ovary and still has both tubes. (7) Supervision of high-risk : QUALIFIERS: Trimester: second trimester Qualified Code(s): O09.92 - Supervision of high risk , unspecified, second trimester COMMENT: [id number], KELTON 04/23/25, BF: Fausto (8) : QUALIFIERS: Weeks of gestation: 39 weeks Qualified Code(s): Z3A.39 - 39 weeks gestation of COMMENT: GBS neg, NIPT low risk, growth at 37w6d EFW 3092g 41% AC 64% (9) Smoker: COMMENT: Last smoke: 08/25, Exposed to second hand (10) Anxiety: COMMENT: No meds; stable (11) ADHD: QUALIFIERS: Attention deficit-hyperactivity disorder type: unspecified Qualified Code(s): F90.9 - Attention-deficit hyperactivity disorder, unspecified type COMMENT: No meds currently; [employer] in high school (12) delivery delivered: COMMENT: LIANET/SHANE LTCS cat II tracing girl Kalee 39 Maternal Data Information KELTON Calculator Estimated Delivery Date Method Current WG Current Estimate 04/23/25 LMP (Certain) 39w 3d Other Estimates 04/23/25 Ultrasound #1 39w 3d CNM who managed labor up until delivery: Glendy Arvizu Operative Report (OB) Procedure Details Date of Procedure: 04/19/25 Procedure Start Time: 17:37 Pre-Operative Diagnosis: Other Other Pre-Operative diagnosis: see a/p comments Post-Operative Diagnosis: Same as Pre-operative diagnosis Type of Anesthesia: Epidural Special Medications: none Antibiotic Given: Ancef 2 grams IV x1 Drain: Chamberlain to straight drain Estimated Blood Loss: 600 Fluids Replaced: crystalloid Findings Description of surgery: The patient was placed in the dorsal supine position with leftward tilt. Patient was prepped and draped in the normal sterile fashion. Pfannenstiel skin incision was made with the scalpel and carried through to the underlying layer of fascia with the scalpel. Fascia was nicked in the midline and the incision extended laterally. The rectus bellies were dissected off superiorly and inferiorly with out complication both sharply and bluntly. The peritoneum was entered digitally. The incision was stretched and a low transverse uterine incision was made with the scalpel. The 's head was delivered atraumatically followed by the anterior and posterior shoulders without complication the rest of the infant delivered. The cord was clamped and cut and the infant was handed off to awaiting nurse. The placenta was delivered spontaneously immediately following and was noted to be intact and have a three-vessel cord. The uterus was exteriorized cleared of all clots and debris, and the incision was closed in a single layer closure using #1 Monocryl. The ovaries and fallopian tubes were noted to be within normal limits. The uterus was returned to the maternal abdomen and gutters were cleared of all clots and debris. The peritoneum was closed with 3-0 Monocryl in a running fashion. Gloves were changed prior to fascial closure. Fascia was closed with 0 PDS in a running fashion. Subcutaneous tissue was copiously irrigated and the skin was closed with 3-0 Monocryl in a subcuticular fashion. Mepilex dressing was applied without complication. Patient was taken to recovery in stable condition. It was discussed with the patient that based on the clinical information obtained during this encounter, combined with her history, at this time I would recommend vaginal or cesareans for future deliveries if further pregnancies are desired. Surgical findings: vertex infant Amniotic Membrane Rupture Type: Artificial Amniotic Fluid Description: Clear Placental Delivery Description: Spontaneous Specimen collected: Yes Description of specimen(s) removed: Placenta Cord Vessel Description: 3 Vessels Delayed Cord Clamping: Yes Brakes Inspector manufacturing weaver: Yes Data Processing [employer] Project Planner: Mariely Stinson Tasks completed by first calender worker: Opening & closing, Retracting and Other (Assisting with delivery of the ) Additional content assistant?: No Complications Complications: No Admit VTE Documentation VTE Present on Admission: No VTE Mechan Device Prophylaxis: SCD's Procedures Urinary/Genital [id number]: [id number] delivery+PP Care([facility])
--- NOTE | 2025-04-19 18:18 | DCINST_ITS ---
Discharge Instructions DC O2, CPAP, BIPAP needs Home O2 Discharge instructions: No Dressing / Incision Discharge Activity: May Not Drive (for 2 weeks or while taking narcotic pain medications.), May Shower and May Take a Tub Bath (in 7 days) May shower in (days): 0 May resume sexual activity in: 4-6 weeks Weight Bearing Status: Full weight bearing Lifting Restrictions: 20 pounds Dressing / Incision Call your doctor if your incision/area has: Continuous Slow Oozing, Sudden Increased Bleeding, Increased Pain/ Swelling, Increased Redness and Foul Smelling Discharge Call your doctor if you observe: Fever of 101 or Higher and Using more than 1 pad per hour (for 2 hours) Suture Line Care: Avoid Pulling/Pushing and Avoid Pinching/Bending Cleanse incision/area with: Soap & Water and Keep Dressing Clean & Dry Follow Up Care Please Follow Up With: Nereida Garcia MD When: Call [phone] to make an appointment for an incision check in 1-2 weeks. Test Results: Test results from this visit will be discussed in further detail at your follow- up appointment, if applicable. Discharge Plan Admission Admit Date/Time: 04/18/25 18:55 Attending Provider: Nereida Garcia Primary Care Provider: Marisa William Discharge Orders/Prescriptions Prescriptions: New oxycodone-acetaminophen [Percocet] 5-325 mg tablet 1 tab PO Q4H PRN (Reason: pain) 7 Days Qty: 20 0RF naproxen 500 mg tablet 500 mg PO BID PRN PRN (Reason: Pain) Qty: 30 1RF No Action DHA 200 mg capsule 200 mg PO DAILY Referrals / Follow Up: Marisa William, ALEX-C [Primary Care Provider, Family Practice] Disposition Disposition (needs filled in before D/C Order can be placed): Home, Self Care
[2025-04-19] MEDS: Oxytocin 15 Units/NS 250ml 15 UNITS/250 ML IV.SOLN 83 UNITS IV (18:19)
--- NOTE | 2025-04-19 18:30 | NURSING ---
Report received from Yary RN, taking over pt and care at this time.
[2025-04-19] MEDS: Ketorolac 30 MG/ML Syringe IV (19:22)
[2025-04-19] MEDS: Lactated Ringers 1,000 ML 100 ML IV (21:20)
[2025-04-20] VITALS (14 sets, daily range): BP systolic 125–140; BP diastolic 35–87; PULSE 87–102; RESP 14–18; TEMP 36.1–37.1; O2SAT 95–100
[2025-04-20] MEDS: Ketorolac 30 MG/ML Syringe IV ×3 (01:25→13:39)
--- NOTE | 2025-04-20 01:45 | NURSING ---
Report given to Joie DAWSON, taking over pt care at this time.
[2025-04-20 07:00] LABS: Hematocrit 27.5 % (37-47); Hemoglobin 8.9 g/dL (12.0-15.0); Mean Corp Hgb Conc 32.4 g/dL (32-36); Mean Corpuscular Volume 82.1 fL (81-99); Mean Platelet Vol. 12.6 fl (6.2-12.0); Platelet Count 205 K/mm3 (150-450); RBC Distribution Width CV 18.3 % (11.6-14.6); RBC Distribution Width SD 55.3 fl (35.1-43.9); Red Blood Count 3.35 M/mm3 (4.2-5.4); White Blood Count 11.9 K/mm3 (4.4-11.0)
[2025-04-20] MEDS: 0.9% Saline Lock 10 ML Syringe IV ×2 (07:24→13:39)
--- NOTE | 2025-04-20 08:56 | PCM.PN.OB ---
Subjective Subjective Patient doing well without complaints. Tolerating PO. Ambulating and voiding without difficulty. Feeding well. Denies chest pain, shortness of breath, calf pain/swelling, fevers, chills, lightheadedness. Objective Data Objective Data Vital Signs: Vital Signs Temp Pulse Resp BP Pulse Ox O2 Del Method 97.3 F L 88 18 125/82 H 100 Room Air 04/20/25 07:30 04/20/25 07:30 04/20/25 07:30 04/20/25 07:30 04/20/25 07:30 04/20/25 07:30 Oxygen Delivery Method Room Air Weight: 187 lb Body Mass Index (BMI) 36.5 Intake & Output: Intake and Output for Last 24 Hours 04/18/25 04/19/25 04/20/25 23:59 23:59 23:59 Intake Total 3475.43 / 3475.43 1100 / 1100 Output Total 1400 / 1400 1250 / 1250 Balance 2075.43 / 2075.43 -150 / -150 Lab / Micro Data Attestation: I reviewed the patient's lab results. 04/20/25 06:25 04/18/25 20:15 Labs: Laboratory Results - last 24 hr 04/20/25 06:25: WBC 11.9 H, RBC 3.35 L, Hgb 8.9 L, Hct 27.5 L, MCV 82.1, MCH 26.6 L, MCHC 32.4, RDW Std Deviation 55.3 H, RDW Coeff of Fazal 18.3 H, Plt Count 205, MPV 12.6 H ROS Constitutional Constitutional: Reports systems reviewed and no addt'l complaints, except as documented; Denies anorexia or headache(s) Cardiovascular Cardiovascular: Reports systems reviewed and no addt'l complaints, except as documented; Denies dizziness, dyspnea, nausea or tachypnea Respiratory/Chest Respiratory/Chest: Reports systems reviewed and no addt'l complaints, except as documented; Denies cough, dyspnea, shortness of breath at rest or tachypnea Gastrointestinal Gastrointestinal: Reports systems reviewed and no addt'l complaints, except as documented; Denies abdominal pain, constipation or nausea Genitourinary Genitourinary: Reports systems reviewed and no addt'l complaints, except as documented; Denies burning urination, difficulty urinating, dysuria, urinary frequency or urinary incontinence Musculoskeletal Musculoskeletal: Reports systems reviewed and no addt'l complaints, except as documented Integumentary Integumentary: Reports systems reviewed and no addt'l complaints, except as documented Neurologic Neurologic: Reports systems reviewed and no addt'l complaints, except as documented; Denies abnormal speech, dizziness or headache(s) Psychiatric Psychiatric: Reports systems reviewed and no addt'l complaints, except as documented Endocrine Endocrinology: Reports systems reviewed and no addt'l complaints, except as documented Hematologic/Lymphatic Hematologic/Lymphatic: Reports systems reviewed and no addt'l complaints, except as documented Physical Exam Const alert, oriented x3 and no apparent distress Neck full ROM Resp normal respiratory effort, normal air movement and no retractions Effort and Inspection: able to speak in complete sentences and symmetric chest movement GI soft to palpation Inspection: incision intact Bladder / Kidney Exam: bladder normal to palpation Uterus Palpation: uterus fundus firm Extremity normal to inspection and full ROM Psych mental status grossly normal, thought process normal and cooperative Assessment & Plan (1) delivery delivered: COMMENT: LIANET/SHANE LTCS cat II tracing girl Kalee 39 PLAN: s/p LTCS PPD # 1 1. routine post care 2. breast feeding- support given 3. rh positive 4. rubella immune (2) Encounter for induction of labor: (3) Swelling of ankle: (4) Chronic pruritus: COMMENT: bile acids 03/12 wnl (5) Anemia affecting : COMMENT: OTC iron hgb 01/29 9.9 -> 03/12 10.6 -> 12/ 10.7 (6) Chlamydia infection affecting : QUALIFIERS: Trimester: first trimester Qualified Code(s): O98.811 - Other maternal infectious and parasitic diseases complicating , first trimester; A74.9 - Chlamydial infection, unspecified COMMENT: + @ NOB. Treated and vomited med. [place] [facility] Rx sent and zofram prior. Rpt test negative (7) History of ectopic : COMMENT: 09/08/20 - surgery by SHANE, was in right ovary and still has both tubes. (8) Supervision of high-risk : QUALIFIERS: Trimester: second trimester Qualified Code(s): O09.92 - Supervision of high risk , unspecified, second trimester COMMENT: [id number], KELTON 04/23/25, BF: Fausto (9) : QUALIFIERS: Weeks of gestation: 39 weeks Qualified Code(s): Z3A.39 - 39 weeks gestation of COMMENT: GBS neg, NIPT low risk, growth at 37w6d EFW 3092g 41% AC 64% (10) Smoker: COMMENT: Last smoke: 08/25, Exposed to second hand (11) Anxiety: COMMENT: No meds; stable (12) ADHD: QUALIFIERS: Attention deficit-hyperactivity disorder type: unspecified Qualified Code(s): F90.9 - Attention-deficit hyperactivity disorder, unspecified type COMMENT: No meds currently; [employer] in high school Charges/Coding Multi Select Codes Urinary/Genital Urinary/Genital CPT Codes: No Charge
[2025-04-20] MEDS: Senna/Docusate Sodium 1 Tablet PO (10:01)
[2025-04-21 01:51] VITALS: BP 129/80; PULSE 100; RESP 17; TEMP 36.3; O2SAT 100
[2025-04-21 07:30] VITALS: BP 114/86; PULSE 89; RESP 16; TEMP 36.4; O2SAT 99
[2025-04-21] MEDS: Hydrocortisone 2.5% Crm 1 APPLIC TOPICAL (09:20)
[2025-04-21] MEDS: Senna/Docusate Sodium 1 Tablet PO (09:21)
--- NOTE | 2025-04-21 12:24 | PCM.PN.BLA ---
Progress Note Patient doing well. Reports still feeling sore around her incision, not feeling confident about pain control once home. Tolerating PO. Ambulating and voiding without difficulty. Feeding well. Denies chest pain, shortness of breath, calf pain/swelling, fevers, chills, lightheadedness. Physical Exam Const alert, oriented x3 and no apparent distress Neck full ROM Resp normal respiratory effort, normal air movement and no retractions Effort and Inspection: able to speak in complete sentences and symmetric chest movement GI soft to palpation Inspection: incision intact (clean, dry) Uterus Palpation: uterus fundus firm Extremity normal to inspection and full ROM Psych mental status grossly normal, thought process normal and cooperative Assessment & Plan Assessment/Plan (1) delivery delivered: PLAN: s/p LTCS PPD # 2 1. routine post care 2. breast feeding- support given 3. rh positive 4. rubella immune PLAN: Plan re-evaluate patient tonight for appropriateness of d/c
[2025-04-21 13:30] VITALS: BP 132/79; PULSE 89; RESP 16; TEMP 36.9; O2SAT 96
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
[2025-04-21 15:40] VITALS: BP 129/78; PULSE 90; RESP 16; TEMP 36.4; O2SAT 100
[2025-04-21 17:05] VITALS: BP 136/82; PULSE 102; RESP 18; TEMP 37.1; O2SAT 99
--- NOTE | 2025-04-21 17:13 | NURSING ---
at 1630 this nurse entered room and pt c/o some shortness of breath at times- pt asked if i could take her pulse ox- pulse ox was 99-100% and respirations were 18- pt states that it is probably her anxiety- will continue to monitor
--- NOTE | 2025-04-21 17:17 | NURSING ---
1700 upon entering the room to check on pt- pt asks if I could take her vital signs because she feels nauseous. VS done- dr zarate called and notified of pts continued complaints and asked for her to come over and evaluate pts concerns- Pt keeps saying that she has anxiety and keeps attributing her symptoms with her anxiety- pt notified that Dr Zarate will be over to see her prior to discharge
--- NOTE | 2025-04-21 17:30 | NURSING ---
dr zarate into see pt and evaluate. pt states that she feels better now- pt states that she feels like she was having a panic attack and had to calm herself down- dr zarate listening to lungs and discsussing with pt her anxiety and how she can manage it- POC is to start some medication and keep discharge as planned for now
--- NOTE | 2025-04-21 17:42 | DS.PCM_ITS ---
Providers Date of Admission: 04/18/25 Primary Care Physician: Marisa William, DINING SERVICE SUPERVISOR-C Reason For Visit: PRIMARY Diagnosis Discharge Diagnosis (1) delivery delivered: Status: Acute Code(s): O82 - Encounter for delivery without indication Plan: s/p LTCS PPD # 2 1. routine post care 2. breast feeding- support given 3. rh positive 4. rubella immune Medications at Discharge Home Medications docosahexaenoic acid 200 mg capsule ( DHA) 200 mg PO DAILY 08/27/24 naproxen 500 mg tablet 500 mg PO BID PRN PRN Pain #30 tabs 04/19/25 oxycodone-acetaminophen 5 mg-325 mg tablet (Percocet) 1 tab PO Q4H PRN pain 7 days #20 tabs 04/19/25 ondansetron 4 mg disintegrating tablet 4 mg PO Q8H PRN nausea and vomiting #14 tabs 04/21/25 sertraline 25 mg tablet (Zoloft) 25 mg PO DAILY #30 tabs 04/21/25 Hospital Course Summary of Care Provided Hospital Course: Bridgette Meyers is a 25-year-old, now , who presented at 39w3d for induction of labor for possible cholestasis. She was GBS negative. Due to a category II FHT remote from vaginal delivery, she had a primary delivery of a 6lb 12oz female . Her course was uncomplicated. Weight / BMI Weight Weight: 187 lb Body Mass Index (BMI) 36.5 PRE- weight 142 lb PRE- Body Mass Index 27.8 (BMI) ABG / Lab / Microbiology Data 04/20/25 06:25 04/18/25 20:15 D/C Instructions May shower in (days): 0 May resume sexual activity in: 4-6 weeks Weight Bearing Status: Full weight bearing Call your doctor if your incision/area has: Continuous Slow Oozing, Sudden Increased Bleeding, Increased Pain/ Swelling, Increased Redness and Foul Smelling Discharge Call your doctor if you observe: Fever of 101 or Higher and Using more than 1 pad per hour (for 2 hours) Suture Line Care: Avoid Pulling/Pushing and Avoid Pinching/Bending Cleanse incision/area with: Soap & Water and Keep Dressing Clean & Dry DC O2, CPAP, BIPAP Needs Home O2 Discharge instructions: No Please Follow Up With: Nereida Garcia MD When: Call [phone] to make an appointment for an incision check in 1-2 weeks. Meaningful Use Info Meaningful Use Meaningful Use Diagnoses (Choose all that apply): None applicable Discharge Plan Admission Admit Date/Time: 04/18/25 18:55 Primary Reason for Your Visit: labor and delivery Attending Provider: Nereida Garcia Primary Care Provider: Marisa William Instructions Patient Instructions: After a Delivery (WP), How to Bottle-Feed Discharge Orders/Prescriptions Prescriptions: New oxycodone-acetaminophen [Percocet] 5-325 mg tablet 1 tab PO Q4H PRN (Reason: pain) 7 Days Qty: 20 0RF naproxen 500 mg tablet 500 mg PO BID PRN PRN (Reason: Pain) Qty: 30 1RF sertraline [Zoloft] 25 mg tablet 25 mg PO DAILY Qty: 30 3RF ondansetron 4 mg tablet,disintegrating 4 mg PO Q8H PRN (Reason: nausea and vomiting) Qty: 14 0RF No Action DHA 200 mg capsule 200 mg PO DAILY Referrals / Follow Up: Marisa William, DINING SERVICE SUPERVISOR-C [Primary Care Provider, Family Practice] Disposition Disposition (needs filled in before D/C Order can be placed): Home, Self Care
== END 2025-04-21 18:00 | disposition home or self-care (01) | DRG 540 ==
PROVIDERS: Admitting Provider Advanced Practice Midwife; PCP Nurse Practitioner Family; Referring Provider Advanced Practice Midwife; Visit Provider Obstetrics & Gynecology
DX: O76 Abnormality in fetal heart rate and rhythm complicating labor and delivery (principal); K83.1 Obstruction of bile duct; F41.9 Anxiety disorder, unspecified; L29.9 Pruritus, unspecified; O99.72 Diseases of the skin and subcutaneous tissue complicating childbirth; Z37.0 Single live birth; Z87.891 Personal history of nicotine dependence; Z77.22 Contact with and (suspected) exposure to environmental tobacco smoke (acute) (chronic); Z3A.39 39 weeks gestation of pregnancy; F90.9 Attention-deficit hyperactivity disorder, unspecified type; O99.344 Other mental disorders complicating childbirth; O99.02 Anemia complicating childbirth; Z87.59 Personal history of other complications of pregnancy, childbirth and the puerperium; Z86.19 Personal history of other infectious and parasitic diseases; O26.62 Liver and biliary tract disorders in childbirth; O99.63 Diseases of the digestive system complicating the puerperium
CPT/HCPCS: 36415; 59025; 59050; 80053; 80076; 85025; 85027; 86780; 86850; 86900; 86901; 99221; A4216; G0378; J2405